=== PATIENT | female | born 1975 | race Caucasian/White ===

== ENCOUNTER 2017-02-09 10:12 | Outpatient (RCR) | payer MEDICAID ==
[~2017-02-09 10:12] MED LIST: ALPR-557 GT; AMLO10TA PO; ASPI-586 PO; CLIN-62 PO; CLOP75TA28 PO; CYCL10TA9 PO; DULO30CA; DULO60CA6 PO; FURO40TA4 PO; GABA-488 PO; GABA100C; GABA300S2 PO; GFN600TCR PO; HYDR-3720 PO; HYDR-757 PO; HYDR118S10 PO; HYDROCHLOROTHIAZIDE PO; KCL10CCR PO; LEVO75TA57 PO; LEVO75TA6 PO; LOSA1TAB15 PO; LOSARTAN PO; LVT.088T PO; MELO-198 PO; METO-272 PO; METO-333 PO; METO-352 PO; METO2.5T PO; NAPR-243; NIA500ERT; NTR.4SL; OMEP-10 PO; OMEP20CA12 PO; POTA-53 PO; ROPI2TAB4; ROPI4TAB3 PO; ROPI5TAB PO; RT-ALBUINH IH; SMV20T PO; TIZA4CAP6 PO
== END 2017-03-22 17:25 | disposition home or self-care (01) ==
PROVIDERS: ATTEND Surgery
DX: I89.0 Lymphedema, not elsewhere classified (principal); I30.8 Other forms of acute pericarditis; E66.01 Morbid (severe) obesity due to excess calories; I70.242 Atherosclerosis of native arteries of left leg with ulceration of calf

== ENCOUNTER 2017-02-17 08:44 | Outpatient (RCR) | payer MEDICAID ==
--- OUTSIDE RECORDS SUMMARY | 2017-01-09 13:32 | XMS REPORT | Continuity of Care Document ---
Author Author [facility] Organization [facility] Address Unknown Phone Unavailable Care Team Providers Care Manager Sustainability Name Role Phone PIPPA DIMAS CARLO PCP Insurance Providers Payer Name Policy Number Subscriber Name Relationship Self Pay Christina Morin 18 Self / Same As Patient Advance Directives Directive Response Recorded Date/Time Advance Directives No 08/09/14 1:05am Health Care Power of Tobacco Classer No 08/09/14 1:05am Organ Donor Yes 08/09/14 1:05am Resuscitation Status Full Code 08/09/14 1:05am Problems Medical Problems Problem Onset Date Status Cellulitis Unknown Active Medications Medication Dose Route Sig Days/Qty Instructions Order Date Discontinued Date Status Losartan/Hydrochlorothiazide 2 Tab PO DAILY 08/08/10 Active Omeprazole 20 Mg PO DAILY 08/08/10 Active Levothyroxine Sodium 1 Each PO DAILY 08/08/10 11/27/13 Discontinued Niacin 09/01/12 11/27/13 Discontinued Nitroglycerin 09/01/12 11/27/13 Discontinued Naproxen 09/01/12 11/27/13 Discontinued Ropinirole Hcl 09/01/12 11/27/13 Discontinued Simvastatin 09/01/12 Active Duloxetine HCl 09/01/12 11/27/13 Discontinued Gabapentin 09/01/12 11/27/13 Discontinued Levothyroxine Sodium (Levothroid) 1 Each PO DAILY 11/27/13 Active Ropinirole Hcl 5 Mg PO TWICE A DAY 11/27/13 Active Duloxetine HCl 60 Mg PO DAILY 11/27/13 Active Guaifenesin 600 Mg PO TWICE A DAY 11/27/13 08/09/14 Discontinued Meloxicam (Mobic) 1 Each PO DAILY 11/27/13 Active Omeprazole 20 Mg PO DAILY 30 Qty 11/27/13 08/09/14 Discontinued Amlodipine Besylate 10 Mg PO DAILY 11/27/13 08/09/14 Discontinued Furosemide (Lasix) 1 Each PO DAILY 11/27/13 Active Alprazolam 0.5 Mg GT TWICE A DAY PRN ANXIETY 11/27/13 08/09/14 Discontinued Potassium Chloride 10 Meq PO DAILY 11/27/13 Active Tizanidine Hcl 4 Mg PO DIRECTED 11/27/13 08/09/14 Discontinued Acetaminophen/Hydrocodone Bitart (Anza) 1 Each PO EVERY 12 HOURS PRN PAIN 11/27/13 Active Hydrocodone Bit/Acetaminophen 1-2 Each PO EVERY 4HRS 30 Qty 12/04/13 08/09/14 Discontinued Clindamycin HCl 2 Each PO EVERY 6 HOURS 80 Qty 08/09/14 Active Social History Social History Problem Response Recorded Date/Time Alcohol Use Denies Use 08/09/2014 1:05am Recreational Drug Use No 08/09/2014 1:05am Sexually Transmitted Disease No 08/09/2014 1:05am Smoking Status Never a Smoker 08/09/2014 1:05am Query Response Start Date Stop Date Smoking Status Never a Smoker Hospital Discharge Instructions No hospital discharge instructions. Plan of Care No plan of care. Functional Status No functional status results. Allergies, Adverse Reactions, Alerts Allergen Type Severity Reaction Status Last Updated sulfamethoxazole ([id number]) Allergy Unknown Active 04/23/06 Trimethoprim Allergy Unknown Active 04/23/06 Immunizations Name Given Type Date of Influenza Vaccine 08/20/12 Historical Vital Signs Acute Vital Signs Vital Response Date/Time Temperature (Fahrenheit) 98.6 degrees F (97.6 - 99.5) Temperature (Calculated Celsius) 37.81392 degrees C (36.4 - 37.5) Temperature Source Temporal Pulse Rate (adult) 109 bpm (60 - 90) Respiratory Rate 24 bpm (12 - 24) O2 Sat by Pulse Oximetry 96 % (88 - 100) Blood Pressure 132/86 mm Hg Pain Pain Intensity 10 Height (Feet) 5 feet Height (Inches) 2 inches Height (Calculated Centimeters) 157.090508 cm Weight (Pounds) 424 pounds Weight (Calculated Kilograms) 192.985774 kilograms Calculated BMI 77.54 Results Test Source Date Result Interp. Ref. Range Comments Activated Partial Thromboplast Time August 08, 2010 1:48am 30 SEC N 24-35 Alanine Aminotransferase (ALT/SGPT) April 14, 2008 8:40pm 27 U/L L 30-65 Has specimen been collected/obtained? Y Albumin April 14, 2008 8:40pm 3.1 G/DL L 3.4-5.0 Has specimen been collected/obtained? Y Alkaline Phosphatase April 14, 2008 8:40pm 87 U/L N 50-136 Has specimen been collected/obtained? Y Aspartate Amino Transf (AST/SGOT) April 14, 2008 8:40pm 11 U/L L 15-37 Has specimen been collected/obtained? Y B-Type Natriuretic Peptide August 09, 2010 6:25am < 5.0 PG/ML L 5.0- 100.0 BUN/Creatinine Ratio November 27, 2013 10:15am 22 - Band Neutrophils August 20, 2007 1:25am 6 % - Has specimen been collected/obtained? Y Basophils # (Auto) August 09, 2010 6:25am 0.0 10^3/uL N 0.0-0.1 Basophils (%) (Auto) August 09, 2010 6:25am 0 % N 0-10 Blood Urea Nitrogen November 27, 2013 10:15am 28 MG/DL H 7-18 Calcium Level November 27, 2013 10:15am 9.0 MG/DL N 8.5-10.1 Carbon Dioxide Level November 27, 2013 10:15am 34 MMOL/L H 21-32 Chloride Level November 27, 2013 10:15am 102 MMOL/L N 101-110 Cholesterol Level April 23, 2006 6:20am 168 MG/DL N -200 Creatinine November 27, 2013 10:15am 1.3 MG/DL N 0.6-1.3 D-Dimer August 08, 2010 1:48am 0.25 UG/ML N 0.00-0.49 Eosinophils # (Auto) August 09, 2010 6:25am 0.3 10^3/uL N 0.0-0.3 Eosinophils (%) (Auto) August 09, 2010 6:25am 3 % N 0-10 Glucose Level November 27, 2013 10:15am 107 MG/DL H 74-106 HDL Cholesterol April 23, 2006 6:20am 31 MG/ML L 35-60 Hematocrit August 09, 2010 6:25am 36 % N 35-52 Hemoglobin August 09, 2010 6:25am 11.8 G/DL N 11.5-16.0 LDL Cholesterol April 23, 2006 6:20am 116 MG/DL N 0-129 Lymphocytes # (Auto) August 09, 2010 6:25am 1.5 X 10^3 N 1.0-4.0 Lymphocytes % (Manual) August 20, 2007 1:25am 3 % - Has specimen been collected/obtained? Y Lymphocytes (%) (Auto) August 09, 2010 6:25am 15 % N 12-44 Magnesium Level August 09, 2010 6:25am 1.8 MG/DL N 1.8-2.4 Mean Corpuscular Hemoglobin August 09, 2010 6:25am 31 PG N 25-34 Mean Corpuscular Hemoglobin Concent August 09, 2010 6:25am 33 G/DL N 32-36 Mean Corpuscular Volume August 09, 2010 6:25am 92 FL N 80-99 Mean Platelet Volume August 09, 2010 6:25am 9.3 FL N 7.4-10.4 Monocytes # (Auto) August 09, 2010 6:25am 0.6 X 10^3 N 0.0-1.0 Monocytes % (Manual) August 20, 2007 1:25am 4 % - Has specimen been collected/obtained? Y Monocytes (%) (Auto) August 09, 2010 6:25am 6 % N 0-12 Myoglobin April 23, 2006 2:45am 26 UG/L N 10-92 Has specimen been collected/obtained? YComments to Cops: ED 5 Neutrophils # (Auto) August 09, 2010 6:25am 7.3 X 10^3 N 1.8-7.8 Neutrophils % (Manual) August 20, 2007 1:25am 87 % - Has specimen been collected/obtained? Y Neutrophils (%) (Auto) August 09, 2010 6:25am 75 % N 42-75 Platelet Count August 09, 2010 6:25am 261 10^3/uL N 130-400 Potassium Level November 27, 2013 10:15am 3.7 MMOL/L N 3.6-5.0 Prothromb Time International Ratio August 08, 2010 1:48am 1.0 N 0.8- 1.4 INTERPRETIVE DATASUGGESTED THERAPEUTIC RANGE FOR INR'S : VENOUS THROMBOSIS, PULMONARY EMBOLISM, OR PREVENTION OF SYSTEMIC EMBOLISM (EG. IN ATRIAL FIBRILLATION): 2.0 - 3.0 MECHANICAL PROSTHETIC HEART VALVES: 2.5 - 3.5* *NOTE: INR'S UP TO 4.5 MAY BE NECESSARY IN SELECTED GROUPS OF HIGH RISK PATIENTS. [employer]ST PHYSICIANS CONSENSUS CONFERENCE ON ANTITHROMBOTIC THERAPY (2000). Prothrombin Time August 08, 2010 1:48am 13.3 SEC N 12.2-14.7 RBC Morphology Bizarre Forms August 20, 2007 1:25am Normal - Has specimen been collected/obtained? Y Red Blood Count August 09, 2010 6:25am 3.86 10^6/uL L 4.35-5.85 Red Cell Distribution Width August 09, 2010 6:25am 12.8 % N 10.0- 14.5 Sodium Level November 27, 2013 10:15am 142 MMOL/L N 135-145 Thyroid Stimulating Hormone (TSH) March 23, 2010 8:07am 1.95 UIU/ML N 0.34 -5.60 Total Bilirubin April 14, 2008 8:40pm 0.2 MG/DL N 0.0-1.0 Has specimen been collected/obtained? Y Total Protein April 14, 2008 8:40pm 7.3 G/DL N 6.4-8.2 Has specimen been collected/obtained? Y Triglycerides Level April 23, 2006 6:20am 106 MG/DL N 30.0-150.0 Troponin I August 08, 2010 1:48am < 0.10 MG/ML 0.00-0.10 Urine Bacteria April 14, 2008 8:45pm Few H - Has specimen been collected/ obtained? YSpecimen Description CLEAN CATCH Urine Bilirubin April 14, 2008 8:45pm Negative - Has specimen been collected/obtained? YSpecimen Description CLEAN CATCH Urine Casts April 14, 2008 8:45pm None - Has specimen been collected/ obtained? YSpecimen Description CLEAN CATCH Urine Clarity April 14, 2008 8:45pm Clear - Has specimen been collected /obtained? YSpecimen Description CLEAN CATCH Urine Color April 14, 2008 8:45pm Yellow - Has specimen been collected/ obtained? YSpecimen Description CLEAN CATCH Urine Crystals April 14, 2008 8:45pm None - Has specimen been collected /obtained? YSpecimen Description CLEAN CATCH Urine Culture Indicated April 14, 2008 8:45pm Yes - Has specimen been collected/obtained? YSpecimen Description CLEAN CATCH Urine Glucose (UA) April 14, 2008 8:45pm Negative - Has specimen been collected/obtained? YSpecimen Description CLEAN CATCH Urine Ketones April 14, 2008 8:45pm Negative - Has specimen been collected/obtained? YSpecimen Description CLEAN CATCH Urine Leukocyte Esterase April 14, 2008 8:45pm 1+ H - Has specimen been collected/obtained? YSpecimen Description CLEAN CATCH Urine Mucus April 14, 2008 8:45pm Negative - --- 04/14/082140 ---UR MUCOUS previously reported as: SMALL * Urine Nitrate April 14, 2008 8:45pm Negative - Has specimen been collected/obtained? YSpecimen Description CLEAN CATCH Urine Test December 04, 2013 7:35am NEGATIVE - Comments to Cops: ds Urine Protein April 14, 2008 8:45pm Negative - Has specimen been collected/obtained? YSpecimen Description CLEAN CATCH Urine RBC April 14, 2008 8:45pm Rare /HPF - --- 04/14/082140 ---UR RBC (MICRO) previously reported as: NONE /HPF Urine Specific [place] April 14, 2008 8:45pm 1.015 L - Has specimen been collected/obtained? YSpecimen Description CLEAN CATCH Urine Squamous Epithelial Cells April 14, 2008 8:45pm >50 H - --- 2139 ---UR SQUAM EPI previously reported as: 2-5 Urine Urobilinogen April 14, 2008 8:45pm Normal MG/DL - Has specimen been collected/obtained? YSpecimen Description CLEAN CATCH Urine WBC April 14, 2008 8:45pm 2-5 /HPF - --- 04/14/082139 ---UR WBC (MICRO) previously reported as: 5-10 * /HPF Urine pH April 14, 2008 8:45pm 6.0 - Has specimen been collected/ obtained? YSpecimen Description CLEAN CATCH VLDL Cholesterol April 23, 2006 6:20am 21 MG/DL N 5-40 White Blood Count August 09, 2010 6:25am 9.8 10^3/uL N 4.3-11.0 Pathology Consult Specimen April 23, 2006 2:45am See report - Has specimen been collected/obtained? YComments to Cops: ED 5 Lab Scanned Report August 08, 2010 4:00am Referred Lab Report [id number] - Estimat Glomerular Filtration Rate November 27, 2013 10:15am 46 - GFR INTERPRETIVE DATA UNITS FOR ESTIMATED GFR (eGFR): mL/min/1.73 M2 REFERENCE RANGE FOR ESTIMATED GFR (eGFR) eGFR NORMAL eGFR >60 MODERATELY DECREASED eGFR 30-59 SEVERLY DECREASED eGFR 15-29 KIDNEY FAILURE <15 (OR DIALYSIS) Creatine Kinase August 08, 2010 1:48am 30 mg/dl N 21-140 Cardiac Panel Pathologist Review August 08, 2010 1:48am SEE CARDIAC PATH REV - Urine RBC (Auto) April 14, 2008 8:45pm 1+ H - Has specimen been collected /obtained? YSpecimen Description CLEAN CATCH Blood Culture Peripheral-Lt Ac August 20, 2007 1:25am No growth MRSA Screen Nasal November 27, 2013 10:15am MRSA not isolated Urine Culture Urine-Clean Catch April 14, 2008 8:45pm Procedures No known history of procedures. Encounters Encounter Location Date/Time Departed Emergency Room [facility] 08/09/14 12:51am Recent Diagnosis
== END 2017-02-17 14:56 | disposition home or self-care (01) ==
LOC: WOUNDCARE 08:44
PROVIDERS: ATTEND Surgery
DX: I89.0 Lymphedema, not elsewhere classified (principal); L30.8 Other specified dermatitis; E66.01 Morbid (severe) obesity due to excess calories; I70.242 Atherosclerosis of native arteries of left leg with ulceration of calf
CPT/HCPCS: 99212; 99213

== ENCOUNTER → 2017-07-25 | Outpatient (CLI) | payer MEDICAID ==
[~2017-07-25] MED LIST changes: +DULO60CA58 PO; +LOSA1TAB23 PO; -METO-272 PO; +METO-370 PO; +METO50TA2 PO; +MUPI22OI2 TP; +NAPR220C11 PO; +SACU1TAB PO; +SIMV20TA3 PO
--- NOTE | 2017-07-25 15:47 | Diagnostic Imaging Report ---
EXAMINATION: CHEST (PA AND LATERAL) CLINICAL INDICATION: 41-year-old female, asthma, cough. COMPARISON: May 13, 2017. FINDINGS: Heart size and mediastinal contours are unremarkable. There is no identified pneumothorax. There is no pleural effusion. There is no identified focal airspace consolidation. IMPRESSION: 1. No identified acute cardiopulmonary abnormality. Dictated by: Dictated on workstation # [id number]
== END ==
LOC: RAD 15:02
PROVIDERS: ATTEND Nurse Practitioner Family
DX: J45.909 Unspecified asthma, uncomplicated (principal)
CPT/HCPCS: 71020

== ENCOUNTER 2017-08-10 05:32 | Outpatient (CLI) | payer MEDICAID ==
[~2017-08-10] VITALS: Ht 157.5 cm; Wt 191.9 kg
[~2017-08-10 05:32] MED LIST changes: -DULO60CA58 PO; -LOSA1TAB23 PO; +METO-272 PO; -METO-370 PO; -METO50TA2 PO; -NAPR220C11 PO; -SIMV20TA3 PO
== END 2017-08-10 14:37 ==
LOC: PREOP 05:32
PROVIDERS: ATTEND Surgery
DX: Z01.818 Encounter for other preprocedural examination; K21.9 Gastro-esophageal reflux disease without esophagitis; Z79.02 Long term (current) use of antithrombotics/antiplatelets

== ENCOUNTER 2017-09-06 05:35 | Outpatient (CLI) | payer MEDICAID ==
[~2017-09-06] VITALS: Ht 157.5 cm; Wt 191.9 kg
[2017-09-06] MEDS ORDERED: DULO60CA58 PO (09:31)
[2017-09-06] MEDS ORDERED: SACU1TAB PO (09:31)
[2017-09-06] MEDS ORDERED: CLOP75TA28 PO (09:31)
[2017-09-06] MEDS ORDERED: SIMV20TA3 PO (09:31)
[2017-09-06] MEDS ORDERED: OMEP20CA12 PO (09:31)
[2017-09-06] MEDS ORDERED: METO50TA2 PO (09:31)
[2017-09-06] MEDS ORDERED: LOSA1TAB70 PO (09:31)
== END 2017-09-06 09:38 ==
LOC: PREOP 05:35
PROVIDERS: ATTEND Surgery
DX: Z01.818 Encounter for other preprocedural examination (principal); K21.9 Gastro-esophageal reflux disease without esophagitis

== ENCOUNTER 2017-09-11 08:54 | Day surgery (SDC) | payer MEDICAID ==
[~2017-09-11] VITALS: Ht 157.5 cm; Wt 191.9 kg
[~2017-09-11 08:54] MED LIST changes: +DULO60CA58 PO; +LOSA1TAB70 PO; +METO50TA2 PO; +SIMV20TA3 PO
--- OUTSIDE RECORDS SUMMARY | 2017-09-11 08:57 | XMS REPORT ---
Author Author PIPPA DIMAS [facility] Address [address] [place] [address] Care Team Providers Care Secondary Set Up Man Name Role Phone PIPPA DIMAS Unavailable PROBLEMS Type Condition ICD9-CM Code [id number] Code Onset Dates Condition Status SNOMED Code Problem Dependence on nocturnal oxygen therapy Z99.81 Active 62442164071130 Problem Restless legs syndrome G25.81 Active 142400378 Problem Left knee pain M25.562 Active 08617567 Problem Lumbar pain M54.5 Active 434400853 Problem Essential hypertension I10 Active 17045939 Problem Abdominal wall mass R19.00 Active 783027629 Problem Acquired hypothyroidism E03.9 Active 442052540 Problem Alteration in mobility due to weakness R53.1 Active 608245498 Problem Chronic stasis dermatitis I83.10 Active 76022705 Problem Lower abdominal pain R10.30 Active 15488198 Problem Edema of both legs R60.0 Active 006207747 Problem Stasis dermatitis without varicosities I87.2 Active 58562072 Problem Chronic pain syndrome G89.4 Active 809671961 Problem Gastroesophageal reflux disease without esophagitis K21.9 Active 694413688 Problem Lymphedema I89.0 Active 624476325 Problem Morbid obesity due to excess calories E66.01 Active 217010800 Problem Renal insufficiency N28.9 Active 194861378 Problem 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 Active 26656752 Problem 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 Active 02353951 Problem Urge incontinence of urine N39.41 Active 93817051 Problem Dependence on supplemental oxygen Z99.81 Active 747489292611 Problem Pain in right knee M25.561 Active 07159860 Problem Nocturnal hypoxia G47.34 Active 895790102 Problem Cellulitis L03.90 Active 712811667 Problem Pain in left knee M25.562 Active 757978634818987 Problem Other chronic pain 338.29 Active 67022034 Problem Hypoxia R09.02 Active 934003113 Problem Cellulitis of left lower extremity L03.116 Active 988888344 Problem Mixed hyperlipidemia E78.2 Active 581727276 ALLERGIES No Information SOCIAL HISTORY Never Assessed PLAN OF CARE VITAL SIGNS MEDICATIONS Medication Instructions Dosage Frequency Start Date End Date Duration Status Hydrocodone-Acetaminophen 5-325 MG Orally 3 times a day prn must last 28 days - must have appt for further refills 1 tablet as needed Sep, 28 days Active RESULTS No Results PROCEDURES No Known procedures IMMUNIZATIONS No Known Immunizations MEDICAL (GENERAL) HISTORY Type Description Date Medical History Hypothyroidism Medical History hyperlipidemia Medical History obesity Medical History chronic pain Medical History mood disorder Medical History chronic renal insufficiency Medical History restless leg syndrome Medical History anxiety Medical History venous insufficiency Medical History hypertension Medical History edema Medical History oxygen dependent at hs (did not tolerate CPAP) Medical History sleep apnea/restrictive resp disease Medical History Obstructive sleep apnea (adult) (pediatric) Medical History Obstructive sleep apnea (adult) (pediatric) Medical History Achilles bursitis or tendinitis Medical History Unspecified disorder of kidney and ureter Medical History Other and unspecified hyperlipidemia Medical History Other and unspecified hyperlipidemia Medical History Unspecified episodic mood disorder Medical History Other abnormal glucose Medical History 08/16/16 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
--- OUTSIDE RECORDS SUMMARY | 2017-09-11 08:58 | XMS REPORT ---
Author Author PIPPA DIMAS [facility] Address [address] [place] [address] Care Team Providers Care Coal Unloader Name Role Phone PIPPA DIMAS Unavailable PROBLEMS Type Condition ICD9-CM Code [id number] Code Onset Dates Condition Status SNOMED Code Problem Dependence on nocturnal oxygen therapy Z99.81 Active 95044256834696 Problem Restless legs syndrome G25.81 Active 800847463 Problem Left knee pain M25.562 Active 55245684 Problem Lumbar pain M54.5 Active 514468467 Problem Essential hypertension I10 Active 65093470 Problem Abdominal wall mass R19.00 Active 916717895 Problem Acquired hypothyroidism E03.9 Active 876198161 Problem Alteration in mobility due to weakness R53.1 Active 139420744 Problem Chronic stasis dermatitis I83.10 Active 86181347 Problem Lower abdominal pain R10.30 Active 50546892 Problem Edema of both legs R60.0 Active 769330293 Problem Stasis dermatitis without varicosities I87.2 Active 23676559 Problem Chronic pain syndrome G89.4 Active 426055716 Problem Gastroesophageal reflux disease without esophagitis K21.9 Active 042695415 Problem Lymphedema I89.0 Active 977412992 Problem Morbid obesity due to excess calories E66.01 Active 373327730 Problem Renal insufficiency N28.9 Active 105624889 Problem 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 Active 24658464 Problem 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 Active 09510541 Problem Urge incontinence of urine N39.41 Active 59867164 Problem Dependence on supplemental oxygen Z99.81 Active 034298034821 Problem Pain in right knee M25.561 Active 69802135 Problem Nocturnal hypoxia G47.34 Active 124935565 Problem Cellulitis L03.90 Active 363628447 Problem Pain in left knee M25.562 Active 076463077726196 Problem Other chronic pain 338.29 Active 67482962 Problem Hypoxia R09.02 Active 919665073 Problem Cellulitis of left lower extremity L03.116 Active 211856246 Problem Mixed hyperlipidemia E78.2 Active 564598023 ALLERGIES Unknown Allergies SOCIAL HISTORY No smoking Hx information available PLAN OF CARE VITAL SIGNS MEDICATIONS Medication Instructions Dosage Frequency Start Date End Date Duration Status Ropinirole HCl 4 MG Orally Once a day 1 tablet 1 to 3 hours before bedtime 24h 30 days Active RESULTS No Results PROCEDURES No Known procedures IMMUNIZATIONS No Known Immunizations
--- OUTSIDE RECORDS SUMMARY | 2017-09-11 08:58 | XMS REPORT ---
Author Author PIPPA DIMAS [facility] Address [address] [place] [address] Care Team Providers Care Oven Baker Name Role Phone PIPPA DIMAS Unavailable PROBLEMS Type Condition ICD9-CM Code [id number] Code Onset Dates Condition Status SNOMED Code Problem Dependence on nocturnal oxygen therapy Z99.81 Active 57002598587795 Problem Essential hypertension I10 Active 90991849 Problem Acquired hypothyroidism E03.9 Active 581619346 Problem Restless legs syndrome G25.81 Active 266925588 Problem Lumbar pain M54.5 Active 191862704 Problem Alteration in mobility due to weakness R53.1 Active 358119862 Problem Left knee pain M25.562 Active 49082451 Problem Lower abdominal pain R10.30 Active 17460387 Problem Chronic stasis dermatitis I83.10 Active 87699555 Problem Abdominal wall mass R19.00 Active 701937182 Problem Edema of both legs R60.0 Active 313554189 Problem Stasis dermatitis without varicosities I87.2 Active 70282727 Problem Chronic pain syndrome G89.4 Active 206222354 Problem Gastroesophageal reflux disease without esophagitis K21.9 Active 804351392 Problem Lymphedema I89.0 Active 957773304 Problem Morbid obesity due to excess calories E66.01 Active 990937219 Problem Renal insufficiency N28.9 Active 097169962 Problem 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 Active 50891673 Problem 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 Active 66685915 Problem Urge incontinence of urine N39.41 Active 25546935 Problem Dependence on supplemental oxygen Z99.81 Active 809823018282 Problem Pain in right knee M25.561 Active 94965614 Problem Nocturnal hypoxia G47.34 Active 576965625 Problem Cellulitis L03.90 Active 971541620 Problem Pain in left knee M25.562 Active 335125267405035 Problem Mixed hyperlipidemia E78.2 Active 803811945 Problem Hypoxia R09.02 Active 582966975 Problem Cellulitis of left lower extremity L03.116 Active 449316886 Problem Other chronic pain 338.29 Active 59187363 ALLERGIES Unknown Allergies SOCIAL HISTORY No smoking Hx information available PLAN OF CARE VITAL SIGNS MEDICATIONS Medication Instructions Dosage Frequency Start Date End Date Duration Status Hydrocodone-Acetaminophen 5-325 MG Orally 3 times a day prn must last 28 days - must have appt for further refills 1 tablet as needed Sep, Active RESULTS No Results PROCEDURES No Known procedures IMMUNIZATIONS No Known Immunizations
--- OUTSIDE RECORDS SUMMARY | 2017-09-11 08:58 | XMS REPORT ---
Author Author PIPPA DIMAS [facility] Address [address] [place] [address] Care Team Providers Care Oleomargarine Maker Name Role Phone PIPPA DIMAS Unavailable PROBLEMS Type Condition ICD9-CM Code [id number] Code Onset Dates Condition Status SNOMED Code Problem Dependence on nocturnal oxygen therapy Z99.81 Active 81332538728989 Problem Restless legs syndrome G25.81 Active 261202533 Problem Left knee pain M25.562 Active 81439585 Problem Lumbar pain M54.5 Active 491831938 Problem Essential hypertension I10 Active 10840359 Problem Abdominal wall mass R19.00 Active 386298615 Problem Acquired hypothyroidism E03.9 Active 810726680 Problem Alteration in mobility due to weakness R53.1 Active 771687325 Problem Chronic stasis dermatitis I83.10 Active 91559741 Problem Lower abdominal pain R10.30 Active 06858450 Problem Edema of both legs R60.0 Active 305384356 Problem Stasis dermatitis without varicosities I87.2 Active 28456104 Problem Chronic pain syndrome G89.4 Active 695340699 Problem Gastroesophageal reflux disease without esophagitis K21.9 Active 697168634 Problem Lymphedema I89.0 Active 650211077 Problem Morbid obesity due to excess calories E66.01 Active 701106146 Problem Renal insufficiency N28.9 Active 964251659 Problem 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 Active 62008509 Problem 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 Active 39470277 Problem Urge incontinence of urine N39.41 Active 76536966 Problem Dependence on supplemental oxygen Z99.81 Active 594622538963 Problem Pain in right knee M25.561 Active 04178155 Problem Nocturnal hypoxia G47.34 Active 286958991 Problem Cellulitis L03.90 Active 801019181 Problem Pain in left knee M25.562 Active 094037558427015 Problem Other chronic pain 338.29 Active 63853033 Problem Hypoxia R09.02 Active 162349870 Problem Cellulitis of left lower extremity L03.116 Active 847076496 Problem Mixed hyperlipidemia E78.2 Active 361542296 ALLERGIES Unknown Allergies SOCIAL HISTORY No smoking Hx information available PLAN OF CARE VITAL SIGNS MEDICATIONS Unknown Medications RESULTS No Results PROCEDURES No Known procedures IMMUNIZATIONS No Known Immunizations
--- OUTSIDE RECORDS SUMMARY | 2017-09-11 09:00 | XMS REPORT ---
Author Author PIPPA DIMAS [facility] Address [address] [place] [address] Care Team Providers Care Engraver Name Role Phone PIPPA DIMAS Unavailable PROBLEMS Type Condition ICD9-CM Code [id number] Code Onset Dates Condition Status SNOMED Code Problem Dependence on nocturnal oxygen therapy Z99.81 Active 36583856857499 Problem Restless legs syndrome G25.81 Active 022004933 Problem Left knee pain M25.562 Active 48738683 Problem Lumbar pain M54.5 Active 912176171 Problem Essential hypertension I10 Active 70518767 Problem Abdominal wall mass R19.00 Active 123534251 Problem Acquired hypothyroidism E03.9 Active 270360059 Problem Alteration in mobility due to weakness R53.1 Active 653258144 Problem Chronic stasis dermatitis I83.10 Active 31334007 Problem Lower abdominal pain R10.30 Active 12276878 Problem Edema of both legs R60.0 Active 429185655 Problem Stasis dermatitis without varicosities I87.2 Active 13034711 Problem Chronic pain syndrome G89.4 Active 057472942 Problem Gastroesophageal reflux disease without esophagitis K21.9 Active 572820691 Problem Lymphedema I89.0 Active 803499575 Problem Morbid obesity due to excess calories E66.01 Active 363183126 Problem Renal insufficiency N28.9 Active 006290656 Problem 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 Active 79452735 Problem 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 Active 54795346 Problem Urge incontinence of urine N39.41 Active 49371357 Problem Dependence on supplemental oxygen Z99.81 Active 762546515269 Problem Pain in right knee M25.561 Active 16630542 Problem Nocturnal hypoxia G47.34 Active 190016071 Problem Cellulitis L03.90 Active 837913940 Problem Pain in left knee M25.562 Active 014528229780372 Problem Other chronic pain 338.29 Active 22835928 Problem Hypoxia R09.02 Active 102842025 Problem Cellulitis of left lower extremity L03.116 Active 725235593 Problem Mixed hyperlipidemia E78.2 Active 629577480 ALLERGIES Substance Reaction Event Type Date Status Arnaldo DS Unknown Drug Allergy Dec, Active SOCIAL HISTORY Never Assessed PLAN OF CARE Activity Details Follow Up 4 Weeks Reason:pain VITAL SIGNS Height 62 in 2016-12-29 Weight 441.0 lbs 2016-12-29 Temperature 98.0 degrees Fahrenheit 2016-12-29 Heart Rate 105 bpm 2016-12-29 Respiratory Rate 24 2016-12-29 BMI 80.65 kg/m2 2016-12-29 Blood pressure systolic 148 mmHg 2016-12-29 Blood pressure diastolic 95 mmHg 2016-12-29 MEDICATIONS Medication Instructions Dosage Frequency Start Date End Date Duration Status Triamcinolone Acetonide 0.1 % Externally Twice a day 1 application to affected area 12h Feb, Active Neurontin 300 MG Orally Once a day at night 1 capsule 30 Active Ropinirole HCl 4 MG Orally Once a day 1 tablet 1 to 3 hours before bedtime 24h 30 days Active Cymbalta 60 MG TAKE ONE CAPSULE BY MOUTH DAILY 90 Active Cyclobenzaprine HCl 10 mg Orally Once a day 1 tablet as needed 24h Jan 28 days Active Omeprazole 20 mg take 1 capsule by Oral route before a meal 1 time per day Jan, Active Losartan Potassium-HCTZ 100-25 MG Orally Once a day 1 tablet 24h 30 days Active Metoprolol Tartrate 50 mg Orally Twice a day 1 tablet with food 12h Jul 30 days Active Hydrocodone-Acetaminophen 5-325 MG Orally 3 times a day prn must last 28 days - must have appt for further refills 1 tablet as needed Sep,Jan 28 days Active Oxygen 2L Active Albuterol Sulfate 90 mcg/actuation take 2 puffs by Inhalation route every 4 -6 hours as needed PRN cough or wheezing Jan, Active Levothyroxine Sodium 75 MCG Orally Once a day 1 tablet on an empty stomach in the morning 24h Jun, 30 day(s) Active Aspir-81 81 MG Orally Once a day 1 tablet 24h Active Simvastatin 20 MG TAKE ONE TABLET BY MOUTH ONCE DAILY IN THE EVENING 30 Active Metolazone 2.5 MG Orally Once a day 1 tablet 24h 30 Active Wheelchair 1 as directed March, Active Potassium Chloride ER 20 MEQ Orally Once a day 1 tablet with food 24h Active Plavix 75 MG Orally Once a day 1 tablet 24h Active RESULTS Name Result Date Reference Range AMERITOX 2016-12-29 PROCEDURES Procedure Date Ordered Result Body Site No Charge Dec 29, 2016 IMMUNIZATIONS No Known Immunizations MEDICAL (GENERAL) HISTORY [...]
--- OUTSIDE RECORDS SUMMARY | 2017-09-11 09:00 | XMS REPORT ---
Author Author PIPPA DIMAS [facility] Address [address] [place] [address] Care Team Providers Care Medical Pathology Teacher Name Role Phone PIPPA DIMAS Unavailable PROBLEMS Type Condition ICD9-CM Code [id number] Code Onset Dates Condition Status SNOMED Code Problem Dependence on nocturnal oxygen therapy Z99.81 Active 98275031189311 Problem Restless legs syndrome G25.81 Active 983756367 Problem Left knee pain M25.562 Active 70472459 Problem Lumbar pain M54.5 Active 937468255 Problem Essential hypertension I10 Active 21897613 Problem Abdominal wall mass R19.00 Active 599425199 Problem Acquired hypothyroidism E03.9 Active 287422517 Problem Alteration in mobility due to weakness R53.1 Active 805440853 Problem Chronic stasis dermatitis I83.10 Active 87925383 Problem Lower abdominal pain R10.30 Active 09540948 Problem Edema of both legs R60.0 Active 383088810 Problem Stasis dermatitis without varicosities I87.2 Active 95684667 Problem Chronic pain syndrome G89.4 Active 269337609 Problem Gastroesophageal reflux disease without esophagitis K21.9 Active 346785518 Problem Lymphedema I89.0 Active 594602069 Problem Morbid obesity due to excess calories E66.01 Active 965361417 Problem Renal insufficiency N28.9 Active 332988785 Problem 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 Active 39526816 Problem 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 Active 17623069 Problem Urge incontinence of urine N39.41 Active 61845386 Problem Dependence on supplemental oxygen Z99.81 Active 159643674240 Problem Pain in right knee M25.561 Active 64560293 Problem Nocturnal hypoxia G47.34 Active 397229150 Problem Cellulitis L03.90 Active 127915493 Problem Pain in left knee M25.562 Active 060509633946474 Problem Other chronic pain 338.29 Active 69356755 Problem Hypoxia R09.02 Active 666763071 Problem Cellulitis of left lower extremity L03.116 Active 503004696 Problem Mixed hyperlipidemia E78.2 Active 191506161 ALLERGIES No Information SOCIAL HISTORY Never Assessed PLAN OF CARE VITAL SIGNS MEDICATIONS Unknown [...]
--- OUTSIDE RECORDS SUMMARY | 2017-09-11 09:00 | XMS REPORT ---
Author Author PIPPA DIMAS [facility] Address [address] [place] [address] Care Team Providers Care Oyster Farmer Name Role Phone PIPPA DIMAS Unavailable PROBLEMS Type Condition ICD9-CM Code PFU77-RF Code Onset Dates Condition Status SNOMED Code Problem Dependence on nocturnal oxygen therapy Z99.81 Active 02848306567585 Problem Restless legs syndrome G25.81 Active 225382578 Problem Left knee pain M25.562 Active 03170797 Problem Lumbar pain M54.5 Active 818182625 Problem Essential hypertension I10 Active 64531692 Problem Abdominal wall mass R19.00 Active 190665953 Problem Acquired hypothyroidism E03.9 Active 924914633 Problem Alteration in mobility due to weakness R53.1 Active 431018876 Problem Chronic stasis dermatitis I83.10 Active 80347814 Problem Lower abdominal pain R10.30 Active 59056461 Problem Edema of both legs R60.0 Active 039396304 Problem Stasis dermatitis without varicosities I87.2 Active 11425395 Problem Chronic pain syndrome G89.4 Active 978778286 Problem Gastroesophageal reflux disease without esophagitis K21.9 Active 830748081 Problem Lymphedema I89.0 Active 196467882 Problem Morbid obesity due to excess calories E66.01 Active 245497927 Problem Renal insufficiency N28.9 Active 292132311 Problem 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 Active 38597429 Problem 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 Active 40134380 Problem Urge incontinence of urine N39.41 Active 71313826 Problem Dependence on supplemental oxygen Z99.81 Active 695007281420 Problem Pain in right knee M25.561 Active 82186515 Problem Nocturnal hypoxia G47.34 Active 370365826 Problem Cellulitis L03.90 Active 045684121 Problem Pain in left knee M25.562 Active 830449700949549 Problem Other chronic pain 338.29 Active 92139005 Problem Hypoxia R09.02 Active 819610242 Problem Cellulitis of left lower extremity L03.116 Active 030805330 Problem Mixed hyperlipidemia E78.2 Active 583621285 ALLERGIES Unknown Allergies SOCIAL HISTORY No smoking Hx information available PLAN OF CARE VITAL SIGNS MEDICATIONS Medication Instructions Dosage Frequency Start Date End Date Duration Status Cyclobenzaprine HCl 10 mg TAKE ONE TABLET BY MOUTH AT BEDTIME 14 days Active Hydrocodone-Acetaminophen 5-325 MG Orally 3 times a day prn must last 28 days - must have appt for further refills 1 tablet as needed Sep, 14 days Active Simvastatin 20 mg TAKE ONE TABLET BY MOUTH IN THE EVENING 14 days Active RESULTS No Results PROCEDURES No Known procedures IMMUNIZATIONS No Known Immunizations
--- OUTSIDE RECORDS SUMMARY | 2017-09-11 09:01 | XMS REPORT ---
Author Author PIPPA DIMAS [facility] Address [address] [place] [address] Care Team Providers Care Supervisor Rides Name Role Phone PIPPA DIMAS Unavailable PROBLEMS Type Condition ICD9-CM Code NNC03-UY Code Onset Dates Condition Status SNOMED Code Problem Dependence on nocturnal oxygen therapy Z99.81 Active 93492604555236 Problem Restless legs syndrome G25.81 Active 371430206 Problem Left knee pain M25.562 Active 73205286 Problem Lumbar pain M54.5 Active 239509921 Problem Essential hypertension I10 Active 80980053 Problem Abdominal wall mass R19.00 Active 219337063 Problem Acquired hypothyroidism E03.9 Active 644007134 Problem Alteration in mobility due to weakness R53.1 Active 172303029 Problem Chronic stasis dermatitis I83.10 Active 03813365 Problem Lower abdominal pain R10.30 Active 20514751 Problem Edema of both legs R60.0 Active 289198676 Problem Stasis dermatitis without varicosities I87.2 Active 35122976 Problem Chronic pain syndrome G89.4 Active 450903857 Problem Gastroesophageal reflux disease without esophagitis K21.9 Active 512026808 Problem Lymphedema I89.0 Active 411506252 Problem Morbid obesity due to excess calories E66.01 Active 442031262 Problem Renal insufficiency N28.9 Active 916825973 Problem 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 Active 81718938 Problem 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 Active 35378838 Problem Urge incontinence of urine N39.41 Active 91768027 Problem Dependence on supplemental oxygen Z99.81 Active 883774998648 Problem Pain in right knee M25.561 Active 84108012 Problem Nocturnal hypoxia G47.34 Active 509255969 Problem Cellulitis L03.90 Active 331278771 Problem Pain in left knee M25.562 Active 290944808097686 Problem Other chronic pain 338.29 Active 36076853 Problem Hypoxia R09.02 Active 966845113 Problem Cellulitis of left lower extremity L03.116 Active 233845103 Problem Mixed hyperlipidemia E78.2 Active 071418846 ALLERGIES No Information SOCIAL HISTORY Never Assessed [...]
--- OUTSIDE RECORDS SUMMARY | 2017-09-11 09:01 | XMS REPORT ---
Author Author CHARLES LAWRENCE Organization [facility] Address [address] [place] [address] Care Team Providers Care Conveyor Technician Name Role Phone CHARLES LAWRENCE Unavailable PROBLEMS Type Condition ICD9-CM Code FTA58-BF Code Onset Dates Condition Status SNOMED Code Problem Dependence on nocturnal oxygen therapy Z99.81 Active 56154006583977 Problem Restless legs syndrome G25.81 Active 254341682 Problem Left knee pain M25.562 Active 49245286 Problem Lumbar pain M54.5 Active 019814564 Problem Essential hypertension I10 Active 64607500 Problem Abdominal wall mass R19.00 Active 609865632 Problem Acquired hypothyroidism E03.9 Active 856553581 Problem Alteration in mobility due to weakness R53.1 Active 393979239 Problem Chronic stasis dermatitis I83.10 Active 60026247 Problem Lower abdominal pain R10.30 Active 13978334 Problem Edema of both legs R60.0 Active 912671942 Problem Stasis dermatitis without varicosities I87.2 Active 60251255 Problem Chronic pain syndrome G89.4 Active 231862418 Problem Gastroesophageal reflux disease without esophagitis K21.9 Active 637671285 Problem Lymphedema I89.0 Active 981488667 Problem Morbid obesity due to excess calories E66.01 Active 077587704 Problem Renal insufficiency N28.9 Active 299528348 Problem 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 Active 83276598 Problem 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 Active 38989338 Problem Urge incontinence of urine N39.41 Active 01861173 Problem Dependence on supplemental oxygen Z99.81 Active 820284933388 Problem Pain in right knee M25.561 Active 14266241 Problem Nocturnal hypoxia G47.34 Active 349966532 Problem Cellulitis L03.90 Active 093347773 Problem Pain in left knee M25.562 Active 416200498672655 Problem Other chronic pain 338.29 Active 95009330 Problem Hypoxia R09.02 Active 266898026 Problem Cellulitis of left lower extremity L03.116 Active 738770990 Problem Mixed hyperlipidemia E78.2 Active 067861308 ALLERGIES Substance Reaction Event Type Date Status Bactrim DS Unknown Drug Allergy Nov, Active SOCIAL HISTORY No smoking Hx information available PLAN OF CARE Activity Details Follow Up prn Reason: VITAL SIGNS Height 62 in 2016-12-01 Weight 412.6 lbs 2016-12-01 Temperature 98.2 degrees Fahrenheit 2016-12-01 Heart Rate 80 bpm 2016-12-01 Respiratory Rate 24 2016-12-01 BMI 75.46 kg/m2 2016-12-01 Blood pressure systolic 136 mmHg 2016-12-01 Blood pressure diastolic 80 mmHg 2016-12-01 MEDICATIONS Medication Instructions Dosage Frequency Start Date End Date Duration Status Cyclobenzaprine HCl 10 MG TAKE ONE TABLET BY MOUTH AT BEDTIME 30 Active Oxygen 2L Active Cephalexin 500 MG Orally Twice a day 1 capsule 12h Nov, Nov, 10 day(s) Active Metolazone 2.5 MG Orally Once a day 1 tablet 24h 30 Active Cymbalta 60 MG TAKE ONE CAPSULE BY MOUTH DAILY 90 Active Potassium Chloride ER 20 MEQ Orally Once a day 1 tablet with food 24h Active Wheelchair 1 as directed March, Active Neurontin 300 MG Orally Once a day at night 1 capsule 30 Active Omeprazole 20 mg take 1 capsule by Oral route before a meal 1 time per day Jan, Active Simvastatin 20 MG TAKE ONE TABLET BY MOUTH IN THE EVENING 30 Active Hydrocodone-Acetaminophen 5-325 MG Orally 3 times a day prn must last 28 days - must have appt for further refills 1 tablet as needed Sep, Active Metoprolol Tartrate 25 MG Orally Twice a day 1 tablet with food 12h Jul 30 day(s) Active Albuterol Sulfate 90 mcg/actuation take 2 puffs by Inhalation route every 4 -6 hours as needed PRN cough or wheezing Jan, Active Ropinirole HCl 4 MG Orally Once a day 1 tablet 1 to 3 hours before bedtime 24h 9 days Active Losartan Potassium-HCTZ 100-25 MG TAKE ONE TABLET BY MOUTH DAILY Active Triamcinolone Acetonide 0.1 % Externally Twice a day 1 application to affected area 12h Feb, Active Levothyroxine Sodium 75 MCG Orally Once a day 1 tablet on an empty stomach in the morning 24h 19 Aug, 2016 30 day(s) Active RESULTS No Results PROCEDURES Procedure Date Ordered Related Diagnosis Body Site Office Visit, Est Pt., Level 3 Dec 01, 2016 IMMUNIZATIONS No Known Immunizations
--- OUTSIDE RECORDS SUMMARY | 2017-09-11 09:01 | XMS REPORT ---
Author Author PIPPA DIMAS [facility] Address [address] [place] [address] Care Team Providers Care Community Services Officer Name Role Phone PIPPA DIMAS Unavailable PROBLEMS Type Condition ICD9-CM Code XGE47-YO Code Onset Dates Condition Status SNOMED Code Problem Dependence on nocturnal oxygen therapy Z99.81 Active 28641771038145 Problem Essential hypertension I10 Active 54294750 Problem Acquired hypothyroidism E03.9 Active 415295743 Problem Restless legs syndrome G25.81 Active 511964607 Problem Lumbar pain M54.5 Active 293578004 Problem Alteration in mobility due to weakness R53.1 Active 431687311 Problem Left knee pain M25.562 Active 30874311 Problem Lower abdominal pain R10.30 Active 89862007 Problem Chronic stasis dermatitis I83.10 Active 89681253 Problem Abdominal wall mass R19.00 Active 889486797 Problem Edema of both legs R60.0 Active 091726928 Problem Stasis dermatitis without varicosities I87.2 Active 63866042 Problem Chronic pain syndrome G89.4 Active 268132871 Problem Gastroesophageal reflux disease without esophagitis K21.9 Active 619320019 Problem Lymphedema I89.0 Active 482014601 Problem Morbid obesity due to excess calories E66.01 Active 004874067 Problem Renal insufficiency N28.9 Active 839248669 Problem 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 Active 80671737 Problem 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 Active 49588559 Problem Urge incontinence of urine N39.41 Active 63221634 Problem Dependence on supplemental oxygen Z99.81 Active 453040156105 Problem Pain in right knee M25.561 Active 03340644 Problem Nocturnal hypoxia G47.34 Active 957729794 Problem Cellulitis L03.90 Active 122730046 Problem Pain in left knee M25.562 Active 728496784723761 Problem Mixed hyperlipidemia E78.2 Active 304680899 Problem Hypoxia R09.02 Active 755169964 Problem Cellulitis of left lower extremity L03.116 Active 033706231 Problem Other chronic pain 338.29 Active 25998852 ALLERGIES Unknown Allergies SOCIAL HISTORY No smoking Hx information available PLAN OF CARE VITAL SIGNS MEDICATIONS Medication Instructions Dosage Frequency Start Date End Date Duration Status Ropinirole HCl 4 MG Orally Once a day 1 tablet 1 to 3 hours before bedtime 24h 10 days Active RESULTS No Results PROCEDURES No Known procedures IMMUNIZATIONS No Known Immunizations
--- OUTSIDE RECORDS SUMMARY | 2017-09-11 09:01 | XMS REPORT ---
Author Author PIPPA DIMAS [facility] Address [address] [place] [address] Care Team Providers Care Cream Dumper Name Role Phone PIPPA DIMAS Unavailable PROBLEMS Type Condition ICD9-CM Code FJR83-TD Code Onset Dates Condition Status SNOMED Code Problem Dependence on nocturnal oxygen therapy Z99.81 Active 62492618423965 Problem Restless legs syndrome G25.81 Active 263256749 Problem Left knee pain M25.562 Active 81797352 Problem Lumbar pain M54.5 Active 267245122 Problem Essential hypertension I10 Active 76811441 Problem Abdominal wall mass R19.00 Active 194591516 Problem Acquired hypothyroidism E03.9 Active 937467187 Problem Alteration in mobility due to weakness R53.1 Active 644034702 Problem Chronic stasis dermatitis I83.10 Active 02129084 Problem Lower abdominal pain R10.30 Active 72893138 Problem Edema of both legs R60.0 Active 116827095 Problem Stasis dermatitis without varicosities I87.2 Active 78506590 Problem Chronic pain syndrome G89.4 Active 810607657 Problem Gastroesophageal reflux disease without esophagitis K21.9 Active 650208211 Problem Lymphedema I89.0 Active 229318939 Problem Morbid obesity due to excess calories E66.01 Active 025738927 Problem Renal insufficiency N28.9 Active 225766734 Problem 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 Active 07335446 Problem 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 Active 33162316 Problem Urge incontinence of urine N39.41 Active 00126253 Problem Dependence on supplemental oxygen Z99.81 Active 577431844430 Problem Pain in right knee M25.561 Active 13032601 Problem Nocturnal hypoxia G47.34 Active 667131217 Problem Cellulitis L03.90 Active 991449334 Problem Pain in left knee M25.562 Active 277561802027577 Problem Other chronic pain 338.29 Active 15742029 Problem Hypoxia R09.02 Active 861033910 Problem Cellulitis of left lower extremity L03.116 Active 382311452 Problem Mixed hyperlipidemia E78.2 Active 583854042 ALLERGIES No Information SOCIAL HISTORY Never Assessed [...]
--- OUTSIDE RECORDS SUMMARY | 2017-09-11 09:02 | XMS REPORT ---
Author Author PIPPA DIMAS [facility] Address [address] [place] [address] Care Team Providers Care Fws Faculty Assistant Name Role Phone PIPPA DIMAS Unavailable PROBLEMS Type Condition ICD9-CM Code ULP06-OC Code Onset Dates Condition Status SNOMED Code Problem Dependence on nocturnal oxygen therapy Z99.81 Active 51097104937672 Problem Restless legs syndrome G25.81 Active 176591991 Problem Left knee pain M25.562 Active 69149529 Problem Lumbar pain M54.5 Active 070129203 Problem Essential hypertension I10 Active 32547624 Problem Abdominal wall mass R19.00 Active 690181009 Problem Acquired hypothyroidism E03.9 Active 079896172 Problem Alteration in mobility due to weakness R53.1 Active 683547271 Problem Chronic stasis dermatitis I83.10 Active 49000954 Problem Lower abdominal pain R10.30 Active 86503652 Problem Edema of both legs R60.0 Active 708088140 Problem Stasis dermatitis without varicosities I87.2 Active 82644701 Problem Chronic pain syndrome G89.4 Active 943021437 Problem Gastroesophageal reflux disease without esophagitis K21.9 Active 465764700 Problem Lymphedema I89.0 Active 879768605 Problem Morbid obesity due to excess calories E66.01 Active 219995651 Problem Renal insufficiency N28.9 Active 299155173 Problem 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 Active 40624515 Problem 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 Active 91069308 Problem Urge incontinence of urine N39.41 Active 72151391 Problem Dependence on supplemental oxygen Z99.81 Active 503473300340 Problem Pain in right knee M25.561 Active 25094157 Problem Nocturnal hypoxia G47.34 Active 416751764 Problem Cellulitis L03.90 Active 389374516 Problem Pain in left knee M25.562 Active 150415066823388 Problem Other chronic pain 338.29 Active 41163132 Problem Hypoxia R09.02 Active 524142805 Problem Cellulitis of left lower extremity L03.116 Active 212015072 Problem Mixed hyperlipidemia E78.2 Active 455419252 ALLERGIES Unknown Allergies SOCIAL HISTORY No smoking Hx information available PLAN OF CARE VITAL SIGNS MEDICATIONS Medication Instructions Dosage Frequency Start Date End Date Duration Status Ropinirole HCl 4 MG Orally Once a day 1 tablet 1 to 3 hours before bedtime 24h 9 days Active RESULTS No Results PROCEDURES No Known procedures IMMUNIZATIONS No Known Immunizations
--- OUTSIDE RECORDS SUMMARY | 2017-09-11 09:02 | XMS REPORT ---
Author Author PIPPA DIMAS [facility] Address [address] [place] [address] Care Team Providers Care Printed Forms Proofreader Name Role Phone PIPPA DIMAS Unavailable PROBLEMS Type Condition ICD9-CM Code [id number] Code Onset Dates Condition Status SNOMED Code Problem Dependence on nocturnal oxygen therapy Z99.81 Active 76396487363545 Problem Restless legs syndrome G25.81 Active 431351913 Problem Left knee pain M25.562 Active 36824478 Problem Lumbar pain M54.5 Active 084754127 Problem Essential hypertension I10 Active 44114623 Problem Abdominal wall mass R19.00 Active 550148709 Problem Acquired hypothyroidism E03.9 Active 609065352 Problem Alteration in mobility due to weakness R53.1 Active 047447639 Problem Chronic stasis dermatitis I83.10 Active 15624873 Problem Lower abdominal pain R10.30 Active 07532117 Problem Edema of both legs R60.0 Active 598366188 Problem Stasis dermatitis without varicosities I87.2 Active 18405636 Problem Chronic pain syndrome G89.4 Active 315743582 Problem Gastroesophageal reflux disease without esophagitis K21.9 Active 828753105 Problem Lymphedema I89.0 Active 729147665 Problem Morbid obesity due to excess calories E66.01 Active 879728384 Problem Renal insufficiency N28.9 Active 948614388 Problem 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 Active 42341626 Problem 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 Active 98703269 Problem Urge incontinence of urine N39.41 Active 35672523 Problem Dependence on supplemental oxygen Z99.81 Active 029609770911 Problem Pain in right knee M25.561 Active 57964991 Problem Nocturnal hypoxia G47.34 Active 136363084 Problem Cellulitis L03.90 Active 042585990 Problem Pain in left knee M25.562 Active 183478368353950 Problem Other chronic pain 338.29 Active 81785809 Problem Hypoxia R09.02 Active 240011993 Problem Cellulitis of left lower extremity L03.116 Active 985616187 Problem Mixed hyperlipidemia E78.2 Active 293221560 ALLERGIES No Information SOCIAL HISTORY Never Assessed [...]
--- OUTSIDE RECORDS SUMMARY | 2017-09-11 09:02 | XMS REPORT ---
Author Author PIPPA DIMAS [facility] Address [address] [place] [address] Care Team Providers Care Bonsai Tender Name Role Phone PIPPA DIMAS Unavailable PROBLEMS Type Condition ICD9-CM Code [id number] Code Onset Dates Condition Status SNOMED Code Problem Dependence on nocturnal oxygen therapy Z99.81 Active 74011900377931 Problem Restless legs syndrome G25.81 Active 895281731 Problem Left knee pain M25.562 Active 94717153 Problem Lumbar pain M54.5 Active 664772780 Problem Essential hypertension I10 Active 46596898 Problem Abdominal wall mass R19.00 Active 532044441 Problem Acquired hypothyroidism E03.9 Active 940677136 Problem Alteration in mobility due to weakness R53.1 Active 796344771 Problem Chronic stasis dermatitis I83.10 Active 94998478 Problem Lower abdominal pain R10.30 Active 36806359 Problem Edema of both legs R60.0 Active 113773064 Problem Stasis dermatitis without varicosities I87.2 Active 71093504 Problem Chronic pain syndrome G89.4 Active 873907522 Problem Gastroesophageal reflux disease without esophagitis K21.9 Active 460791541 Problem Lymphedema I89.0 Active 806165969 Problem Morbid obesity due to excess calories E66.01 Active 478793453 Problem Renal insufficiency N28.9 Active 055530875 Problem 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 Active 23951568 Problem 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 Active 04973490 Problem Urge incontinence of urine N39.41 Active 73197432 Problem Dependence on supplemental oxygen Z99.81 Active 174789800119 Problem Pain in right knee M25.561 Active 07395681 Problem Nocturnal hypoxia G47.34 Active 021210314 Problem Cellulitis L03.90 Active 214655250 Problem Pain in left knee M25.562 Active 155175166382810 Problem Other chronic pain 338.29 Active 82464820 Problem Hypoxia R09.02 Active 904388005 Problem Cellulitis of left lower extremity L03.116 Active 713675583 Problem Mixed hyperlipidemia E78.2 Active 349720801 ALLERGIES Unknown Allergies SOCIAL HISTORY No smoking [...] a day 1 tablet with food 12h 21 Jul 15 days Active RESULTS No Results PROCEDURES No Known procedures IMMUNIZATIONS No Known Immunizations
[2017-09-11 09:15] VITALS: BP 129/85
[2017-09-11] MEDS ORDERED: NS IV 500 ML 500 ML IV PRN (09:22)
[2017-09-11] MEDS ORDERED: HURRICAINE EXT TUBE (BENZOCAINE) XX PRN (09:30)
[2017-09-11] MEDS ORDERED: MIDAZOLAM 2 MG/2 ML (VERSED) VIAL IVP PRN (09:30)
[2017-09-11] MEDS ORDERED: NS IV 500 ML 500 ML ONE (09:46)
[2017-09-11] MEDS ORDERED: NAPR220C11 PO (09:51)
--- NOTE | 2017-09-11 11:38 | History & Physicial ---
History of Present Illness History of Present Illness Reason for visit/HPI to undergo an upper endoscopy prior to upcoming bariatric surgery Date of Admission Date Seen by Provider: Sep 11, 2017 Time Seen by Provider: 11:37 I consulted on this patient on 09/11/17 11:36 Attending Physician Radha Johnston MD Admitting Physician Mei Blanco DO Consult Allergies and Home Medications Allergies Coded Allergies: sulfamethoxazole (Unverified Allergy, Unknown, 04/23/06) trimethoprim (Unverified Allergy, Unknown, 04/23/06) Home Medications Albuterol Sulfate 6.7 Gm Hfa.aer.ad, 2 PUFF IH EVERY 4-6 HOURS PRN for SHORTNESS OF BREATH, (Reported) Aspirin 81 Mg Tablet.dr, 81 MG PO DAILY, (Reported) Clopidogrel Bisulfate 75 Mg Tablet, 75 MG PO DAILY, (Reported) Cyclobenzaprine HCl 10 Mg Tablet, 10 MG PO HS, (Reported) Duloxetine HCl 60 Mg Capsule.dr, 60 MG PO DAILY, (Reported) Gabapentin 300 Mg Capsule, 300 MG PO HS, (Reported) Levothyroxine Sodium 75 Mcg Tablet, 75 MCG PO DAILY, (Reported) Losartan/Hydrochlorothiazide 1 Each Tablet, 1 EACH PO DAILY, (Reported) Metolazone 2.5 Mg Tablet, 2.5 MG PO DAILY, (Reported) Metoprolol Tartrate 50 Mg Tablet, 50 MG PO BID, (Reported) Mupirocin 22 Gm Oint...g., 22 GM TP UD, (Reported) APPLY TO AFFECTED AREAS EVERY OTHER DAY Naproxen Sodium 220 Mg Capsule, 220 MG PO PRN, (Reported) Omeprazole 20 Mg Capsule.dr, 20 MG PO DAILY, (Reported) Potassium Chloride 20 Meq Tablet.er, 20 MEQ PO DAILY, (Reported) Ropinirole HCl 4 Mg Tablet, 4 MG PO DAILY@1900, (Reported) TAKES 1-3 HOURS PRIOR TO BEDTIME Sacubitril/Valsartan 1 Each Tablet, 1 EACH PO BID, (Reported) Simvastatin 20 Mg Tablet, 20 MG PO HS, (Reported) Past Kfooqkt-Lsulgk-Kpabji Hx Patient Social History Marrital Status: Employed/Student: unemployed Alcohol Use: Denies Use Recreational Drug Use: No Smoking Status: Never a Smoker Recent Foreign Travel: No Contact w/other who traveled: No Recent Hopitalizations: No Recent Infectious Disease Expo: No Immunizations Up To Date Pediatric: No Date of Influenza Vaccine: Aug 20, 2012 Seasonal Allergies Seasonal Allergies: No Surgeries Yes Cardiac, Section, Coronary Stent, Gallbladder, Orthopedic Respiratory Yes Currently Using BIPAP: No Cardiovascular Yes Chronic Edema/Swelling, Coronary Artery Disease, High Cholesterol, Hypertension Neurological No Reproductive System Hx Reproductive Disorders: No Sexually Transmitted Disease: No Female Reproductive Disorders: Denies Genitourinary Yes Renal Failure Gastrointestinal Yes Gastroesophageal Reflux Musculoskeletal Yes ("BAD KNEES", HERNIATED DISK IN L4-5) Chronic Back Pain Endocrine History of Endocrine Disorders: Yes (borderline diabetes, morbid obesity) Endocrine Disorders: Hypothyroidsim HEENT History of HEENT Disorders: No Cancer No Psychosocial History of Psychiatric Problem: Yes Behavioral Health Disorders: Sleep Difficulties, Anxiety Integumentary History of Skin or Integumenta: Yes (SORES ALL OVER) Blood Transfusions History of Blood Disorders: No Adverse Reaction to a Blood Tr: No Family Medical History Significant Family History: Heart Disease, Vascular Disease Family Hx: FH: COPD (chronic obstructive pulmonary disease) 19 MOTHER FH: congestive heart failure 19 MOTHER FH: renal failure 19 MOTHER Constitutional: malaise EENTM: no symptoms reported Respiratory: no symptoms reported Cardiovascular: no symptoms reported Gastrointestinal: no symptoms reported Genitourinary: no symptoms reported Musculoskeletal: joint pain Skin: no symptoms reported Psychiatric/Neurological: No Symptoms Reported Physical Exam Vital Signs Vital Sign - Last 12Hours 09/11/17 09:15 Temp 98.2 Pulse 72 Resp 24 B/P (MAP) 129/85 Pulse Ox 95 O2 Delivery Room Air Capillary Refill : General Appearance: No Apparent Distress HEENT: Normal ENT Inspection Neck: Normal Inspection Gastrointestinal: Non Tender, Soft Assessment/Plan Assessment and Plan lady with morbid obesity, awaiting bariatric surgery. For upper endoscopy with antral biopsy regarding H. pylori status. Problems: RADHA JOHNSTON MD Sep 11, 2017 11:38 am
--- NOTE | 2017-09-11 11:39 | Conscious Sedation/ASA ---
Conscious Sedation Pre-Proced Time Reviewed: 11:39 ASA Class: 3 Airway Mallampati Classification: ([place] appropriate class) I. II. III, IV Lungs Heart ASA score ASA 1: a normal healthy patient ASA 2: a patient with a mild systemic disease (mid diabetes, controlled hypertension, obesity ASA 3: a patient with a severe systemic disease that limits activity (angina , COPD, prior Myocardial infarction) ASA 4: a patient with an incapacitating disease that is a constant threat to life (CHF, renal failure) ASA 5: a moribund patient not expected to survive 24 hrs. (ruptured aneurysm) ASA 6: a declared brain patient whose organs are being harvested. For emergent operations, add the letter E after the classification Grade 2 Sedation Plan: Discussed options with patient/fam Note The patient is an appropriate candidate to undergo the planned procedure, sedation, and anesthesia. The patient immediately re-assessed prior to indication. RADHA JOHNSTON MD Sep 11, 2017 11:39 am
[2017-09-11] MEDS ORDERED: fentaNYL INJECTION 100 MCG/2 ML AMP ONE (11:55)
[2017-09-11] MEDS ORDERED: MIDAZOLAM 2 MG/2 ML (VERSED) VIAL ONE ×4 (11:55)
[2017-09-11] MEDS ORDERED: HURRICAINE EXT TUBE (BENZOCAINE) ONE (11:55)
[2017-09-11] MEDS: fentaNYL INJECTION 100 MCG/2 ML AMP IVP PRN ×2 (12:26→12:35)
--- NOTE | 2017-09-11 12:48 | Endo Procedure Record ---
Endo Procedure Report Date of Procedure Sep 11, 2017 Surgeon (s) RADHA JOHNSTON MD Post Procedure/Op Diagnosis grade 3 esophagitis with hiatal hernia Multiple antral and pyloric channel ulcers. Duodenal ulcers Procedure Performed EGD with biopsy of antrum and gastroesophageal junction Description of Procedure Anesthesia Type: Conscious Sedation Specimen(s) collected/removed antral mucosa. Mucosa of GE junction to look for Esparza's changes Description of the Procedure Indication for procedure: This lady is awaiting bariatric surgery to manage morbid obesity. Upper endoscopy was recommended as part of the preoperative evaluation. Informed consent was obtained after reviewing the procedure in detail. Description of the procedure: She was placed in left lateral rectus position and her vital signs were monitored. Conscious sedation was achieved using Versed and fentanyl. The flexible gastroscope was introduced down the esophagus , past the stomach, into the proximal duodenum Findings: Esophagus: Hiatal hernia with grade 3 esophagitis, showing linear ulcers. Photodocumentation and biopsy to rule out Esparza's changes were obtained. Stomach: Multiple antral and pyloric channel ulcers with slough along the base, indicating chronicity. These ranged in size from 2-4 mm. Biopsy for H. pylori was obtained. Duodenum: A chronic ulcer about 3 mm in size was found at the first part. She tolerated the procedure well and was taken back to the nursing area in a stable condition. Impression: Morbid obesity.esophagitis, antral, pyloric channel and duodenal ulcers. Biopsy results and Helicobacter status pending. Copies To: MICKEY WISEMAN XAVIER M MD Sep 11, 2017 12:48 pm
--- NOTE | 2017-09-11 12:50 | Discharge Inst-Simple/Standard ---
Discharge Inst-Standard Discharge Medications New, Converted or Re-Newed RX: Other Patient Instructions/Follow Up Plan of Care/Instructions/FU: to increase omeprazole to twice a day Activity as Tolerated: Yes Discharge Diet: No Restrictions RADHA JONHSTON MD Sep 11, 2017 12:50 pm
[2017-09-11 13:20] VITALS: BP 168/78
[2017-09-11 13:55] VITALS: BP 141/77
[2017-09-11 15:00] VITALS: BP 141/77
== END 2017-09-11 15:00 | disposition home or self-care (01) ==
LOC: ENDO 08:54
PROVIDERS: ATTEND Surgery
DX: K20.9 Esophagitis, unspecified (principal); K44.9 Diaphragmatic hernia without obstruction or gangrene; K25.9 Gastric ulcer, unspecified as acute or chronic, without hemorrhage or perforation; K26.9 Duodenal ulcer, unspecified as acute or chronic, without hemorrhage or perforation; I25.10 Atherosclerotic heart disease of native coronary artery without angina pectoris; I10 Essential (primary) hypertension; E78.00 Pure hypercholesterolemia, unspecified; Z95.5 Presence of coronary angioplasty implant and graft; E66.01 Morbid (severe) obesity due to excess calories; Z68.45 Body mass index [BMI] 70 or greater, adult
CPT/HCPCS: 84703; 88305

== ENCOUNTER → 2017-09-21 | Outpatient (CLI) | payer MEDICAID ==
[~2017-09-21] MED LIST changes: +NAPR220C11 PO
== END ==
LOC: CARD 11:50
PROVIDERS: ATTEND Internal Medicine Cardiovascular Disease
DX: I42.0 Dilated cardiomyopathy (principal); I25.10 Atherosclerotic heart disease of native coronary artery without angina pectoris; E66.9 Obesity, unspecified; K21.9 Gastro-esophageal reflux disease without esophagitis; I11.0 Hypertensive heart disease with heart failure; I44.69 Other fascicular block; G47.33 Obstructive sleep apnea (adult) (pediatric); I50.22 Chronic systolic (congestive) heart failure
CPT/HCPCS: 93306

== ENCOUNTER 2017-11-14 21:33 | Emergency (ER) | payer MEDICAID ==
[~2017-11-14] VITALS: Ht 157.5 cm; Wt 198.7 kg
[~2017-11-14 21:33] MED LIST changes: +LOSA1TAB23 PO; -LOSA1TAB70 PO; -METO-272 PO; +METO-370 PO; +METO50TA15 PO; -METO50TA2 PO
--- OUTSIDE RECORDS SUMMARY | 2017-11-14 21:39 | XMS REPORT ---
Author Author PIPPA DIMAS [facility] Address [address] [place] [address] Care Team Providers Care Collection Advisor Name Role Phone PIPPA DIMAS Unavailable PROBLEMS Type Condition ICD9-CM Code [id number] Code Onset Dates Condition Status SNOMED Code Problem Dependence on nocturnal oxygen therapy Z99.81 Active 72129105679393 Problem Restless legs syndrome G25.81 Active 908996458 Problem Left knee pain M25.562 Active 46862273 Problem Lumbar pain M54.5 Active 015111344 Problem Essential hypertension I10 Active 84785989 Problem Abdominal wall mass R19.00 Active 086084889 Problem Acquired hypothyroidism E03.9 Active 227372209 Problem Alteration in mobility due to weakness R53.1 Active 961141885 Problem Chronic stasis dermatitis I83.10 Active 63674142 Problem Lower abdominal pain R10.30 Active 47865718 Problem Edema of both legs R60.0 Active 121305971 Problem Stasis dermatitis without varicosities I87.2 Active 68582551 Problem Chronic pain syndrome G89.4 Active 682310727 Problem Gastroesophageal reflux disease without esophagitis K21.9 Active 346792320 Problem Lymphedema I89.0 Active 901071164 Problem Morbid obesity due to excess calories E66.01 Active 814657645 Problem Renal insufficiency N28.9 Active 910447631 Problem 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 Active 88166195 Problem 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 Active 16432719 Problem Urge incontinence of urine N39.41 Active 38012561 Problem Dependence on supplemental oxygen Z99.81 Active 309794280591 Problem Pain in right knee M25.561 Active 35532196 Problem Nocturnal hypoxia G47.34 Active 591538669 Problem Cellulitis L03.90 Active 377534547 Problem Pain in left knee M25.562 Active 254369088325763 Problem Other chronic pain 338.29 Active 83451705 Problem Hypoxia R09.02 Active 444888403 Problem Cellulitis of left lower extremity L03.116 Active 519014776 Problem Mixed hyperlipidemia E78.2 Active 688253080 ALLERGIES No Information SOCIAL HISTORY Never Assessed PLAN OF CARE VITAL SIGNS MEDICATIONS Medication Instructions Dosage Frequency Start Date End Date Duration Status Plavix 75 MG Orally Once a day 1 tablet 24h 30 days Active RESULTS No Results [...]
--- OUTSIDE RECORDS SUMMARY | 2017-11-14 21:40 | XMS REPORT ---
Author Author PIPPA DIMAS [facility] Address [address] [place] [address] Care Team Providers Care Cryptologic Supervisor Name Role Phone PIPPA DIMAS Unavailable PROBLEMS Type Condition ICD9-CM Code KLP50-FT Code Onset Dates Condition Status SNOMED Code Problem Dependence on nocturnal oxygen therapy Z99.81 Active 60038182706436 Problem Restless legs syndrome G25.81 Active 001264164 Problem Left knee pain M25.562 Active 07047372 Problem Lumbar pain M54.5 Active 976357027 Problem Essential hypertension I10 Active 21359641 Problem Abdominal wall mass R19.00 Active 944091312 Problem Acquired hypothyroidism E03.9 Active 166711670 Problem Alteration in mobility due to weakness R53.1 Active 546076946 Problem Chronic stasis dermatitis I83.10 Active 00630499 Problem Lower abdominal pain R10.30 Active 33112369 Problem Edema of both legs R60.0 Active 007615816 Problem Stasis dermatitis without varicosities I87.2 Active 52910628 Problem Chronic pain syndrome G89.4 Active 786307396 Problem Gastroesophageal reflux disease without esophagitis K21.9 Active 657257131 Problem Lymphedema I89.0 Active 778981585 Problem Morbid obesity due to excess calories E66.01 Active 921760619 Problem Renal insufficiency N28.9 Active 105056900 Problem 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 Active 27463125 Problem 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 Active 39645826 Problem Urge incontinence of urine N39.41 Active 48760266 Problem Dependence on supplemental oxygen Z99.81 Active 518363026179 Problem Pain in right knee M25.561 Active 66015792 Problem Nocturnal hypoxia G47.34 Active 289439023 Problem Cellulitis L03.90 Active 437175179 Problem Pain in left knee M25.562 Active 404159094145914 Problem Other chronic pain 338.29 Active 88312489 Problem Hypoxia R09.02 Active 103296122 Problem Cellulitis of left lower extremity L03.116 Active 967882941 Problem Mixed hyperlipidemia E78.2 Active 552441288 ALLERGIES No Information SOCIAL HISTORY Never Assessed [...]
--- OUTSIDE RECORDS SUMMARY | 2017-11-14 21:41 | XMS REPORT ---
Author Author PIPPA DIMAS [facility] Address [address] [place] [address] Care Team Providers Care Clinical Trainer Name Role Phone PIPPA DIMAS Unavailable PROBLEMS Type Condition ICD9-CM Code IKV54-UG Code Onset Dates Condition Status SNOMED Code Problem Dependence on nocturnal oxygen therapy Z99.81 Active 86116348053578 Problem Left knee pain M25.562 Active 85800957 Problem Essential hypertension I10 Active 37043941 Problem Lumbar pain M54.5 Active 434567793 Problem Restless legs syndrome G25.81 Active 469467271 Problem Acquired hypothyroidism E03.9 Active 546176892 Problem Chronic stasis dermatitis I83.10 Active 88337803 Problem Renal insufficiency N28.9 Active 493958182 Problem Edema of both legs R60.0 Active 069525081 Problem Morbid obesity due to excess calories E66.01 Active 359562923 Problem Stasis dermatitis without varicosities I87.2 Active 39339565 Problem Cellulitis L03.90 Active 079965719 Problem 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 Active 02821390 Problem Dependence on supplemental oxygen Z99.81 Active 785393272549 Problem 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 Active 35986101 Problem Morbid (severe) obesity due to excess calories E66.01 Active 011152600 Problem Bronchitis J40 Active 91756289 Problem Pain in right knee M25.561 Active 39326942 Problem Pain in left knee M25.562 Active 676421950350660 Problem Lymphedema I89.0 Active 529603150 Problem Urge incontinence of urine N39.41 Active 45561001 Problem Chronic pain syndrome G89.4 Active 301488712 Problem Body mass index (BMI) of 70 or greater in adult Z68.45 Active 292145785 Problem Gastroesophageal reflux disease without esophagitis K21.9 Active 961693596 Problem Mixed hyperlipidemia E78.2 Active 624948444 Problem Other chronic pain 338.29 Active 03096104 Problem Nocturnal hypoxia G47.34 Active 996743565 Problem Cellulitis of left lower extremity L03.116 Active 486165621 Problem Alteration in mobility due to weakness R53.1 Active 865106835 Problem Abdominal wall mass R19.00 Active 347178535 Problem Hypoxia R09.02 Active 667444190 Problem Lower abdominal pain R10.30 Active 18303566 ALLERGIES Substance Reaction Event Type Date Status Bactrim DS Unknown Drug Allergy March, Active SOCIAL HISTORY Never Assessed PLAN OF CARE Activity Details Follow Up 3 Months Reason:pain/thyroid VITAL SIGNS Height 62 in 2017-03-30 Weight 428.7 lbs 2017-03-30 Temperature 98.2 degrees Fahrenheit 2017-03-30 Heart Rate 102 bpm 2017-03-30 Respiratory Rate 22 2017-03-30 BMI 78.40 kg/m2 2017-03-30 Blood pressure systolic 137 mmHg 2017-03-30 Blood pressure diastolic 89 mmHg 2017-03-30 MEDICATIONS Medication Instructions Dosage Frequency Start Date End Date Duration Status Neurontin 300 MG Orally Once a day at night 1 capsule 30 Active Levothyroxine Sodium 75 mcg Orally Once a day 1 tablet on an empty stomach in the morning 24h 30 day(s) Active Omeprazole 20 MG TAKE ONE CAPSULE BY MOUTH ONCE DAILY BEFORE A MEAL 30 Active Oxygen 2L Active Losartan Potassium-HCTZ 100-25 MG Orally Once a day 1 tablet 24h 30 days Active Hydrocodone-Acetaminophen 5-325 MG Orally 3 times a day prn must last 28 days - must have appt for further refills 1 tablet as needed March, 28 days Active Plavix 75 MG Orally Once a day 1 tablet 24h Active Ropinirole HCl 4 MG Orally Once a day 1 tablet 1 to 3 hours before bedtime 24h 30 days Active Cyclobenzaprine HCl 10 MG TAKE ONE TABLET BY MOUTH ONCE DAILY NEEDED 17 Active Ropinirole HCl 2 MG Orally Once a day-NO FURTHER REFILLS UNTIL SEEN 1 tablet 1 to 3 hours before bedtime March, 16 days Active Potassium Chloride ER 20 MEQ Orally Once a day 1 tablet with food 24h Active Wheelchair 1 as directed March, Active Aspir-81 81 MG Orally Once a day 1 tablet 24h Active Clobetasol Propionate 0.05 % Externally Twice a day 1 application to affected area 12h March, Jun, 28 days Active Omeprazole 20 mg Orally Once a day 1 capsule 24h Active Albuterol Sulfate 90 mcg/actuation take 2 puffs by Inhalation route every 4 -6 hours as needed PRN cough or wheezing Jan, Active Simvastatin 20 mg TAKE ONE TABLET BY MOUTH ONCE DAILY IN THE EVENING 30 Active Metolazone 2.5 MG Orally Once a day 1 tablet 24h 30 Active Metoprolol Tartrate 50 mg Orally Twice a day 1 tablet with food 12h 30 days Active Cymbalta 60 mg Orally Once a day 1 capsule 24h 90 Active Keflex 500 mg Orally 4 times a day 1 capsule 6h March, March, 10 day(s) Active RESULTS Name Result Date Reference Range TSH 2017-03-30 TSH 0.013 0.450-4.500 CBC 2017-03-30 WBC 9.2 3.4-10.8 RBC 4.42 3.77-5.28 Hemoglobin 12.7 11.1-15.9 Hematocrit 39.7 34.0-46.6 MCV 90 79-97 MCH 28.7 26.6-33.0 MCHC 32.0 31.5-35.7 RDW 13.9 12.3-15.4 Platelets 248 150-379 Neutrophils 77 Lymphs 16 Monocytes 5 Eos 2 Basos 0 Neutrophils (Absolute) 7.1 1.4-7.0 Lymphs (Absolute) 1.4 0.7-3.1 Monocytes(Absolute) 0.4 0.1-0.9 Eos (Absolute) 0.2 0.0-0.4 Baso (Absolute) 0.0 0.0-0.2 Immature Granulocytes 0 Immature Grans (Abs) 0.0 0.0-0.1 LIPID PANEL 2017-03-30 Cholesterol, Total 151 100-199 Triglycerides 195 0-149 HDL Cholesterol 35 >39 VLDL Cholesterol Karlos 39 5-40 LDL Cholesterol Calc 77 0-99 CMP 2017-03-30 Glucose, Serum 93 65-99 BUN 19 6-24 Creatinine, Serum 1.09 0.57-1.00 eGFR If NonAfricn Am 63 >59 eGFR If Africn Am 73 >59 BUN/Creatinine Ratio 17 9-23 Sodium, Serum 139 134-144 Potassium, Serum 4.4 3.5-5.2 Chloride, Serum 100 96-106 Carbon Dioxide, Total 22 18-29 Calcium, Serum 9.2 8.7-10.2 Protein, Total, Serum 7.4 6.0-8.5 Albumin, Serum 3.6 3.5-5.5 Globulin, Total 3.8 1.5-4.5 A/G Ratio 0.9 1.2-2.2 Bilirubin, Total 0.4 0.0-1.2 Alkaline Phosphatase, S 74 39-117 AST (SGOT) 13 0-40 ALT (SGPT) 7 0-32 AMERITOX 2017-03-30 Mammogram, Bilateral Screening 2017-04-27 PROCEDURES Procedure Date Ordered Result Body Site No Charge March 30, 2017 LAB NOT BILLED BY [facility] March 30, 2017 IMMUNIZATIONS No Known Immunizations MEDICAL (GENERAL) HISTORY [...]
--- OUTSIDE RECORDS SUMMARY | 2017-11-14 21:41 | XMS REPORT ---
Author Author PIPPA DIMAS [facility] Address [address] [place] [address] Care Team Providers Care Probation Supervisor Name Role Phone PIPPA DIMAS Unavailable PROBLEMS Type Condition ICD9-CM Code [id number] Code Onset Dates Condition Status SNOMED Code Problem Dependence on nocturnal oxygen therapy Z99.81 Active 73926494887717 Problem Left knee pain M25.562 Active 28516567 Problem Essential hypertension I10 Active 31910758 Problem Lumbar pain M54.5 Active 858752739 Problem Restless legs syndrome G25.81 Active 587854481 Problem Acquired hypothyroidism E03.9 Active 631139534 Problem Chronic stasis dermatitis I83.10 Active 70542336 Problem Renal insufficiency N28.9 Active 750790840 Problem Edema of both legs R60.0 Active 634694220 Problem Morbid obesity due to excess calories E66.01 Active 255957878 Problem Stasis dermatitis without varicosities I87.2 Active 33141248 Problem Cellulitis L03.90 Active 018145647 Problem 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 Active 25640267 Problem Dependence on supplemental oxygen Z99.81 Active 426150198564 Problem 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 Active 99486479 Problem Morbid (severe) obesity due to excess calories E66.01 Active 326489079 Problem Bronchitis J40 Active 91353640 Problem Pain in right knee M25.561 Active 23384148 Problem Pain in left knee M25.562 Active 211302915379788 Problem Lymphedema I89.0 Active 368947137 Problem Urge incontinence of urine N39.41 Active 48289438 Problem Chronic pain syndrome G89.4 Active 839312782 Problem Body mass index (BMI) of 70 or greater in adult Z68.45 Active 169939327 Problem Gastroesophageal reflux disease without esophagitis K21.9 Active 533183985 Problem Mixed hyperlipidemia E78.2 Active 623009914 Problem Other chronic pain 338.29 Active 44245624 Problem Nocturnal hypoxia G47.34 Active 060442649 Problem Cellulitis of left lower extremity L03.116 Active 465348099 Problem Alteration in mobility due to weakness R53.1 Active 831995149 Problem Abdominal wall mass R19.00 Active 097479026 Problem Hypoxia R09.02 Active 991222300 Problem Lower abdominal pain R10.30 Active 01273291 ALLERGIES No Information SOCIAL HISTORY Never Assessed [...]
--- OUTSIDE RECORDS SUMMARY | 2017-11-14 21:41 | XMS REPORT ---
Author Author PIPPA DIMAS [facility] Address [address] [place] [address] Care Team Providers Care Network Security Consultant Name Role Phone PIPPA DIMAS Unavailable PROBLEMS Type Condition ICD9-CM Code [id number]-HX Code Onset Dates Condition Status SNOMED Code Problem Dependence on nocturnal oxygen therapy Z99.81 Active 17608906094769 Problem Restless legs syndrome G25.81 Active 984725421 Problem Left knee pain M25.562 Active 82238506 Problem Lumbar pain M54.5 Active 065780363 Problem Essential hypertension I10 Active 39362882 Problem Abdominal wall mass R19.00 Active 800003646 Problem Acquired hypothyroidism E03.9 Active 734109885 Problem Alteration in mobility due to weakness R53.1 Active 102058043 Problem Chronic stasis dermatitis I83.10 Active 70470427 Problem Lower abdominal pain R10.30 Active 39726291 Problem Edema of both legs R60.0 Active 228709628 Problem Stasis dermatitis without varicosities I87.2 Active 02494867 Problem Chronic pain syndrome G89.4 Active 332180389 Problem Gastroesophageal reflux disease without esophagitis K21.9 Active 620984526 Problem Lymphedema I89.0 Active 393567208 Problem Morbid obesity due to excess calories E66.01 Active 304499173 Problem Renal insufficiency N28.9 Active 859910684 Problem 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 Active 46353928 Problem 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 Active 66000273 Problem Urge incontinence of urine N39.41 Active 83971312 Problem Dependence on supplemental oxygen Z99.81 Active 304793208213 Problem Pain in right knee M25.561 Active 29605453 Problem Nocturnal hypoxia G47.34 Active 511096583 Problem Cellulitis L03.90 Active 761547841 Problem Pain in left knee M25.562 Active 001438350146174 Problem Other chronic pain 338.29 Active 69644779 Problem Hypoxia R09.02 Active 150058456 Problem Cellulitis of left lower extremity L03.116 Active 152726833 Problem Mixed hyperlipidemia E78.2 Active 210560826 ALLERGIES No Information SOCIAL HISTORY Never Assessed PLAN OF CARE VITAL SIGNS MEDICATIONS Medication Instructions Dosage Frequency Start Date End Date Duration Status Ropinirole HCl 2 MG Orally Once a day-NO FURTHER REFILLS UNTIL SEEN 1 tablet 1 to 3 hours before bedtime March, 16 days Active RESULTS No Results PROCEDURES No [...]
--- OUTSIDE RECORDS SUMMARY | 2017-11-14 21:47 | XMS REPORT | Continuity of Care Document ---
Author Author [facility] Address Unknown Phone Unavailable Allergies Active Description Code Type Severity Reaction Onset Reported/Identified Relationship to Patient Clinical Status Yes sulfamethoxazole [id number] Drug Allergy Unknown N/A 04/23/2006 Yes trimethoprim [id number] Drug Allergy Unknown N/A 04/23/2006 Yes Bactrim Drug Allergy 08/10/2009 Yes Bactrim Drug Allergy N/A N/A 08/10/2009 Medications There is no data. 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 10/19/1455 SVETA SAMS MD, Ot I89.0 LYMPHEDEMA, NOT ELSEWHERE CLASSIFIED 10/19/1455 SVETA SAMS MD, Ot L30.8 OTHER SPECIFIED DERMATITIS 08/10/2009 MICKEY WISEMAN DO 465.9 ACUTE UPPER RESPIRATORY INFECTIONS OF UNSPECIFIED SITE 08/10/2009 MICKEY WISEMAN DO 692.9 CONTACT DERMATITIS AND OTHER ECZEMA UNSPECIFIED CAUSE 08/10/2009 JORDEN MEZA MD 465.9 UPPER RESPIRATORY INFECTION 08/10/2009 JORDEN MEZA MD 692.9 CONTACT DERMATITIS AND OTHER ECZEMA UNSPECIFIED CAUSE 08/10/2009 JAY EARLY APRN 465.9 UPPER RESPIRATORY INFECTION 08/10/2009 JAY EARLY APRN 692.9 CONTACT DERMATITIS AND OTHER ECZEMA UNSPECIFIED CAUSE 08/10/2009 465.9 UPPER RESPIRATORY INFECTION 08/10/2009 692.9 CONTACT DERMATITIS AND OTHER ECZEMA UNSPECIFIED CAUSE 08/10/2009 JAY EARLY APRN R 465.9 UPPER RESPIRATORY INFECTION 08/10/2009 JAY EARLY APRN 692.9 CONTACT DERMATITIS AND OTHER ECZEMA UNSPECIFIED CAUSE 08/10/2009 465.9 UPPER RESPIRATORY INFECTION 08/10/2009 692.9 CONTACT DERMATITIS AND OTHER ECZEMA UNSPECIFIED CAUSE 08/10/2009 465.9 UPPER RESPIRATORY INFECTION 08/10/2009 692.9 CONTACT DERMATITIS AND OTHER ECZEMA UNSPECIFIED CAUSE 08/10/2009 465.9 UPPER RESPIRATORY INFECTION 08/10/2009 692.9 CONTACT DERMATITIS AND OTHER ECZEMA UNSPECIFIED CAUSE 08/10/2009 465.9 UPPER RESPIRATORY INFECTION 08/10/2009 692.9 CONTACT DERMATITIS AND OTHER ECZEMA UNSPECIFIED CAUSE 08/10/2009 465.9 UPPER RESPIRATORY INFECTION 08/10/2009 692.9 CONTACT DERMATITIS AND OTHER ECZEMA UNSPECIFIED CAUSE 08/10/2009 DIO CHI MD 465.9 UPPER RESPIRATORY INFECTION 08/10/2009 DIO CHI MD 692.9 CONTACT DERMATITIS AND OTHER ECZEMA UNSPECIFIED CAUSE 08/10/2009 WISEMAN DO MICKEY K 465.9 UPPER RESPIRATORY INFECTION 08/10/2009 WISEMAN DO MICKEY K 692.9 CONTACT DERMATITIS AND OTHER ECZEMA UNSPECIFIED CAUSE 08/10/2009 DIO CHI MD 465.9 UPPER RESPIRATORY INFECTION 08/10/2009 DIO CHI MD 692.9 CONTACT DERMATITIS AND OTHER ECZEMA UNSPECIFIED CAUSE 08/10/2009 JAY EARLY APRN R 465.9 UPPER RESPIRATORY INFECTION 08/10/2009 JAY EARLY APRN R 692.9 CONTACT DERMATITIS AND OTHER ECZEMA UNSPECIFIED CAUSE 08/10/2009 WISEMAN DO, MICKEY K 465.9 UPPER RESPIRATORY INFECTION 08/10/2009 WISEMAN DO, MICKEY K 692.9 CONTACT DERMATITIS AND OTHER ECZEMA UNSPECIFIED CAUSE 08/10/2009 DIO CHI MD 465.9 UPPER RESPIRATORY INFECTION 08/10/2009 DIO CHI MD 692.9 CONTACT DERMATITIS AND OTHER ECZEMA UNSPECIFIED CAUSE 08/10/2009 WISEMAN DO, MICKEY K 465.9 UPPER RESPIRATORY INFECTION 08/10/2009 WISEMAN DO MICKEY K 692.9 CONTACT DERMATITIS AND OTHER ECZEMA UNSPECIFIED CAUSE 08/10/2009 WISEMAN DO, MICKEY K 465.9 UPPER RESPIRATORY INFECTION 08/10/2009 WISEMAN DO, MICKEY K 692.9 CONTACT DERMATITIS AND OTHER ECZEMA UNSPECIFIED CAUSE 08/10/2009 JORDEN MEZA MD 465.9 UPPER RESPIRATORY INFECTION 08/10/2009 JORDEN MEZA MD 692.9 CONTACT DERMATITIS AND OTHER ECZEMA UNSPECIFIED CAUSE 08/10/2009 INOCENTE WEIR APRN S 465.9 UPPER RESPIRATORY INFECTION 08/10/2009 INOCENTE WEIR APRN S 692.9 CONTACT DERMATITIS AND OTHER ECZEMA UNSPECIFIED CAUSE 08/10/2009 WISEMAN DO, MICKEY K 465.9 UPPER RESPIRATORY INFECTION 08/10/2009 WISEMAN DO, MICKEY K 692.9 CONTACT DERMATITIS AND OTHER ECZEMA UNSPECIFIED CAUSE 08/10/2009 JORDEN MEZA MD 465.9 UPPER RESPIRATORY INFECTION 08/10/2009 JORDEN MEZA MD 692.9 CONTACT DERMATITIS AND OTHER ECZEMA UNSPECIFIED CAUSE 08/10/2009 DIO CHI MD M 465.9 UPPER RESPIRATORY INFECTION 08/10/2009 DIO CHI MD 692.9 CONTACT DERMATITIS AND OTHER ECZEMA UNSPECIFIED CAUSE 08/10/2009 DIO CHI MD M 465.9 UPPER RESPIRATORY INFECTION 08/10/2009 DIO CHI MD 692.9 CONTACT DERMATITIS AND OTHER ECZEMA UNSPECIFIED CAUSE 08/10/2009 DIO CHI MD M 465.9 UPPER RESPIRATORY INFECTION 08/10/2009 DIO CHI MD 692.9 CONTACT DERMATITIS AND OTHER ECZEMA UNSPECIFIED CAUSE 08/10/2009 DIO CHI MD M 465.9 UPPER RESPIRATORY INFECTION 08/10/2009 DIO CHI MD 692.9 CONTACT DERMATITIS AND OTHER ECZEMA UNSPECIFIED CAUSE 08/10/2009 WISEMAN DO, MICKEY K 465.9 UPPER RESPIRATORY INFECTION 08/10/2009 WISEMAN DO, MICKEY K 692.9 CONTACT DERMATITIS AND OTHER ECZEMA UNSPECIFIED CAUSE 08/10/2009 WISEMAN DO, MICKEY K 465.9 UPPER RESPIRATORY INFECTION 08/10/2009 WISEMAN DO, MICKEY K 692.9 CONTACT DERMATITIS AND OTHER ECZEMA UNSPECIFIED CAUSE 08/10/2009 WISEMAN DO, MICKEY K 465.9 UPPER RESPIRATORY INFECTION 08/10/2009 WISEMAN DO, MICKEY K 692.9 CONTACT DERMATITIS AND OTHER ECZEMA UNSPECIFIED CAUSE 08/10/2009 AAKASH PETTIT APRN 465.9 UPPER RESPIRATORY INFECTION 08/10/2009 AAKASH PETTIT APRN 692.9 CONTACT DERMATITIS AND OTHER ECZEMA UNSPECIFIED CAUSE 08/10/2009 AAKASH PETTIT APRN 465.9 UPPER RESPIRATORY INFECTION 08/10/2009 WILVER 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 DEPARTMENT, AAKASH T 692.9 CONTACT DERMATITIS AND OTHER ECZEMA UNSPECIFIED CAUSE 08/10/2009 MADL 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 DEPARTMENT, PIPPA L 465.9 UPPER RESPIRATORY INFECTION 08/10/2009 MADL 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 DEPARTMENT, PIPPA L 692.9 CONTACT DERMATITIS AND OTHER ECZEMA UNSPECIFIED CAUSE 08/10/2009 WISEMAN DO, MICKEY K 465.9 UPPER RESPIRATORY INFECTION 08/10/2009 WISEMAN DO, MICKEY K 692.9 CONTACT DERMATITIS AND OTHER ECZEMA UNSPECIFIED CAUSE 08/10/2009 WISEMAN DO, MICKEY K 465.9 UPPER RESPIRATORY INFECTION 08/10/2009 WISEMAN DO, MICKEY K 692.9 CONTACT DERMATITIS AND OTHER ECZEMA UNSPECIFIED CAUSE 08/10/2009 RAFAEL 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 DEPARTMENT, NICKOLAS R 465.9 UPPER RESPIRATORY INFECTION 08/10/2009 RAFAEL 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 DEPARTMENT, NICKOLAS R 692.9 CONTACT DERMATITIS AND OTHER ECZEMA UNSPECIFIED CAUSE 08/10/2009 JORDEN MEZA MD 465.9 ACUTE UPPER RESPIRATORY INFECTIONS OF UNSPECIFIED SITE 08/10/2009 JORDEN MEZA MD 692.9 CONTACT DERMATITIS AND OTHER ECZEMA UNSPECIFIED CAUSE 08/10/2009 WISEMAN DO, MICKEY K 465.9 UPPER RESPIRATORY INFECTION 08/10/2009 WISEMAN DO, MICKEY K 692.9 CONTACT DERMATITIS AND OTHER ECZEMA UNSPECIFIED CAUSE 08/10/2009 MADL 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 DEPARTMENT, PIPPA L 465.9 UPPER RESPIRATORY INFECTION 08/10/2009 MADL 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 DEPARTMENT, PIPPA L 692.9 CONTACT DERMATITIS AND OTHER ECZEMA UNSPECIFIED CAUSE 08/10/2009 MADL 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 DEPARTMENT, PIPPA L 465.9 UPPER RESPIRATORY INFECTION 08/10/2009 MADL 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 DEPARTMENT, PIPPA L 692.9 CONTACT DERMATITIS AND OTHER ECZEMA UNSPECIFIED CAUSE 09/02/2009 WISEMAN DO, MICKEY K 461.0 ACUTE MAXILLARY SINUSITIS 09/02/2009 JORDEN MEZA MD 461.0 ACUTE MAXILLARY SINUSITIS 09/02/2009 JAY EARLY APRN R 461.0 ACUTE MAXILLARY SINUSITIS 09/02/2009 461.0 ACUTE MAXILLARY SINUSITIS 09/02/2009 JAY EARLY APRN R 461.0 ACUTE MAXILLARY SINUSITIS 09/02/2009 461.0 ACUTE MAXILLARY SINUSITIS 09/02/2009 461.0 ACUTE MAXILLARY SINUSITIS 09/02/2009 461.0 ACUTE MAXILLARY SINUSITIS 09/02/2009 461.0 ACUTE MAXILLARY SINUSITIS 09/02/2009 461.0 ACUTE MAXILLARY SINUSITIS 09/02/2009 DIO CHI MD 461.0 ACUTE MAXILLARY SINUSITIS 09/02/2009 WISEMAN DO MICKEY K 461.0 ACUTE MAXILLARY SINUSITIS 09/02/2009 DIO CHI MD M 461.0 ACUTE MAXILLARY SINUSITIS 09/02/2009 JAY EARLY APRN R 461.0 ACUTE MAXILLARY SINUSITIS 09/02/2009 WISEMAN DO, MICKEY K 461.0 ACUTE MAXILLARY SINUSITIS 09/02/2009 DIO CHI MD M 461.0 ACUTE MAXILLARY SINUSITIS 09/02/2009 WISEMAN DO, MICKEY K 461.0 ACUTE MAXILLARY SINUSITIS 09/02/2009 WISEMAN DO, MICKEY K 461.0 ACUTE MAXILLARY SINUSITIS 09/02/2009 JORDEN MEZA MD 461.0 ACUTE MAXILLARY SINUSITIS 09/02/2009 INOCENTE WEIR APRN 461.0 ACUTE MAXILLARY SINUSITIS 09/02/2009 WISEMAN LUX SEXTONA K 461.0 ACUTE MAXILLARY SINUSITIS 09/02/2009 JORDEN MEZA MD 461.0 ACUTE MAXILLARY SINUSITIS 09/02/2009 DIO CHI MD 461.0 ACUTE MAXILLARY SINUSITIS 09/02/2009 DIO CHI MD M 461.0 ACUTE MAXILLARY SINUSITIS 09/02/2009 DIO CHI MD M 461.0 ACUTE MAXILLARY SINUSITIS 09/02/2009 DIO CHI MD M 461.0 ACUTE MAXILLARY SINUSITIS 09/02/2009 WISEMAN DO MICKEY K 461.0 ACUTE MAXILLARY SINUSITIS 09/02/2009 WISEMAN DO, MICKEY K 461.0 ACUTE MAXILLARY SINUSITIS 09/02/2009 WISEMAN DO, MICKEY K 461.0 ACUTE MAXILLARY SINUSITIS 09/02/2009 AAKASH PETTIT APRN 461.0 ACUTE MAXILLARY SINUSITIS 09/02/2009 AAKASH PETTIT APRN 461.0 ACUTE MAXILLARY SINUSITIS 09/02/2009 PIPPA DIMAS APRN 461.0 ACUTE MAXILLARY SINUSITIS 09/02/2009 WISEMAN DO, MICKEY K 461.0 ACUTE MAXILLARY SINUSITIS 09/02/2009 WISEMAN DO, MICKEY K 461.0 ACUTE MAXILLARY SINUSITIS 09/02/2009 NICKOLAS HALL APRN R 461.0 ACUTE MAXILLARY SINUSITIS 09/02/2009 JORDEN MEZA MD 461.0 ACUTE MAXILLARY SINUSITIS 09/02/2009 MICKEY WISEMAN DO K 461.0 ACUTE MAXILLARY SINUSITIS 09/02/2009 MADDIEArjun PINTOPIPPA L 461.0 ACUTE MAXILLARY SINUSITIS 09/02/2009 JUDIE PINTO PIPPA L 461.0 ACUTE MAXILLARY SINUSITIS 03/19/2010 Ot 327.23 03/19/2010 Ot 401.9 03/19/2010 Ot 530.81 04/28/2010 Ot 327.23 08/09/2010 Ot 244.9 08/09/2010 Ot 278.01 08/09/2010 Ot 401.9 08/09/2010 Ot 426.3 08/09/2010 Ot 530.81 08/09/2010 Ot 729.81 08/09/2010 Ot 786.50 08/09/2010 Ot V58.69 08/09/2010 Ot V85.4 08/17/2012 LUX WISEMAN DOA K 244.9 HYPOTHYROIDISM 08/17/2012 LUX WISEMAN DOA K 272.4 HYPERLIPIDEMIA 08/17/2012 LUX WISEMAN DOA K 278.00 OBESITY 08/17/2012 LUX WISEMAN DOA K 296.90 EPISODIC MOOD DISORDERS 08/17/2012 BOWEN SEXTON MICKEY K 338.29 CHRONIC PAIN 08/17/2012 LUX WISEMAN DOA K 593.9 RENAL INSUFFICIENCY 08/17/2012 JORDEN MEZA MD 244.9 HYPOTHYROIDISM 08/17/2012 JORDEN MEZA MD 272.4 HYPERLIPIDEMIA 08/17/2012 JORDEN MEZA MD 278.00 OBESITY 08/17/2012 JORDEN MEZA MD 296.90 EPISODIC MOOD DISORDERS 08/17/2012 JORDEN MEZA MD 338.29 CHRONIC PAIN 08/17/2012 JORDEN MEZA MD 593.9 RENAL INSUFFICIENCY 08/17/2012 JAY EARLY APRN R 244.9 HYPOTHYROIDISM 08/17/2012 JAY EARLY APRN R 272.4 HYPERLIPIDEMIA 08/17/2012 JAY EARLY APRN R 278.00 OBESITY 08/17/2012 JAY EARLY APRN R 296.90 EPISODIC MOOD DISORDERS 08/17/2012 JAY EARLY APRN R 338.29 CHRONIC PAIN 08/17/2012 ERA EARLY APRNIA R 593.9 RENAL INSUFFICIENCY 08/17/2012 244.9 HYPOTHYROIDISM 08/17/2012 272.4 HYPERLIPIDEMIA 08/17/2012 278.00 OBESITY 08/17/2012 296.90 EPISODIC MOOD DISORDERS 08/17/2012 338.29 CHRONIC PAIN 08/17/2012 593.9 RENAL INSUFFICIENCY 08/17/2012 JUAN EARLY APRNRICIA R 244.9 HYPOTHYROIDISM 08/17/2012 JUAN EARLY APRNRICIA R 272.4 HYPERLIPIDEMIA 08/17/2012 JUAN EARLY APRNRICIA R 278.00 OBESITY 08/17/2012 JUAN EARLY APRNRICIA R 296.90 EPISODIC MOOD DISORDERS 08/17/2012 JUAN EARLY APRNRICIA R 338.29 CHRONIC PAIN 08/17/2012 ERA EARLY APRNIA R 593.9 RENAL INSUFFICIENCY 08/17/2012 244.9 HYPOTHYROIDISM 08/17/2012 272.4 HYPERLIPIDEMIA 08/17/2012 278.00 OBESITY 08/17/2012 296.90 EPISODIC MOOD DISORDERS 08/17/2012 338.29 CHRONIC PAIN 08/17/2012 593.9 RENAL INSUFFICIENCY 08/17/2012 244.9 HYPOTHYROIDISM 08/17/2012 272.4 HYPERLIPIDEMIA 08/17/2012 278.00 OBESITY 08/17/2012 296.90 EPISODIC MOOD DISORDERS 08/17/2012 338.29 CHRONIC PAIN 08/17/2012 593.9 RENAL INSUFFICIENCY 08/17/2012 244.9 HYPOTHYROIDISM 08/17/2012 272.4 HYPERLIPIDEMIA 08/17/2012 278.00 OBESITY 08/17/2012 296.90 EPISODIC MOOD DISORDERS 08/17/2012 338.29 CHRONIC PAIN 08/17/2012 593.9 RENAL INSUFFICIENCY 08/17/2012 244.9 HYPOTHYROIDISM 08/17/2012 272.4 HYPERLIPIDEMIA 08/17/2012 278.00 OBESITY 08/17/2012 296.90 EPISODIC MOOD DISORDERS 08/17/2012 338.29 CHRONIC PAIN 08/17/2012 593.9 RENAL INSUFFICIENCY 08/17/2012 244.9 HYPOTHYROIDISM 08/17/2012 272.4 HYPERLIPIDEMIA 08/17/2012 278.00 OBESITY 08/17/2012 296.90 EPISODIC MOOD DISORDERS 08/17/2012 338.29 CHRONIC PAIN 08/17/2012 593.9 RENAL INSUFFICIENCY 08/17/2012 ALON WHITE, DIO Castro 244.9 HYPOTHYROIDISM 08/17/2012 DIO CHI MD 272.4 HYPERLIPIDEMIA 08/17/2012 DIO CHI MD 278.00 OBESITY 08/17/2012 DIO CHI MD 296.90 EPISODIC MOOD DISORDERS 08/17/2012 DIO CHI MD 338.29 CHRONIC PAIN 08/17/2012 DIO CHI MD 593.9 RENAL INSUFFICIENCY 08/17/2012 WISEMAN DO, MICKEY K 244.9 HYPOTHYROIDISM 08/17/2012 WISEMAN DO, MICKEY K 272.4 HYPERLIPIDEMIA 08/17/2012 WISEMAN DO, MICKEY K 278.00 OBESITY 08/17/2012 WISEMAN DO, MICKEY K 296.90 EPISODIC MOOD DISORDERS 08/17/2012 WISEMAN DO, MICKEY K 338.29 CHRONIC PAIN 08/17/2012 WISEMAN DO, MICKEY K 593.9 RENAL INSUFFICIENCY 08/17/2012 DIO CHI MD 244.9 HYPOTHYROIDISM 08/17/2012 DIO CHI MD 272.4 HYPERLIPIDEMIA 08/17/2012 DIO CHI MD 278.00 OBESITY 08/17/2012 DIO CHI MD 296.90 EPISODIC MOOD DISORDERS 08/17/2012 DIO CHI MD 338.29 CHRONIC PAIN 08/17/2012 DIO CHI MD 593.9 RENAL INSUFFICIENCY 08/17/2012 JUAN EARLY APRNRICIA R 244.9 HYPOTHYROIDISM 08/17/2012 JUAN EARLY APRNRICIA R 272.4 HYPERLIPIDEMIA 08/17/2012 SHARATH PINTO JAY R 278.00 OBESITY 08/17/2012 SHARATH PINTO JAY R 296.90 EPISODIC MOOD DISORDERS 08/17/2012 SHARATH PINTO JAY R 338.29 CHRONIC PAIN 08/17/2012 SHARATH PINTO JAY R 593.9 RENAL INSUFFICIENCY 08/17/2012 WISEMAN DO, MICKEY K 244.9 HYPOTHYROIDISM 08/17/2012 WISEMAN DO, MICKEY K 272.4 HYPERLIPIDEMIA 08/17/2012 WISEMAN DO, MICKEY K 278.00 OBESITY 08/17/2012 WISEMAN DO, MICKEY K 296.90 EPISODIC MOOD DISORDERS 08/17/2012 WISEMAN DO, MICKEY K 338.29 CHRONIC PAIN 08/17/2012 WISEMAN DO, MICKEY K 593.9 RENAL INSUFFICIENCY 08/17/2012 DIO CHI MD 244.9 HYPOTHYROIDISM 08/17/2012 DIO CHI MD 272.4 HYPERLIPIDEMIA 08/17/2012 DIO CHI MD 278.00 OBESITY 08/17/2012 DIO CHI MD 296.90 EPISODIC MOOD DISORDERS 08/17/2012 DIO CHI MD 338.29 CHRONIC PAIN 08/17/2012 DIO CHI MD 593.9 RENAL INSUFFICIENCY 08/17/2012 WISEMAN DO, MICKEY K 244.9 HYPOTHYROIDISM 08/17/2012 WISEMAN DO, MICKEY K 272.4 HYPERLIPIDEMIA 08/17/2012 WISEMAN DO, MICKEY K 278.00 OBESITY 08/17/2012 WISEMAN DO, MICKEY K 296.90 EPISODIC MOOD DISORDERS 08/17/2012 WISEMAN DO, MICKEY K 338.29 CHRONIC PAIN 08/17/2012 WISEMAN DO, MICKEY K 593.9 RENAL INSUFFICIENCY 08/17/2012 WISEMAN DO, MICKEY K 244.9 HYPOTHYROIDISM 08/17/2012 WISEMAN DO, MICKEY K 272.4 HYPERLIPIDEMIA 08/17/2012 WISEMAN DO, MICKEY K 278.00 OBESITY 08/17/2012 WISEMAN DO, MICKEY K 296.90 EPISODIC MOOD DISORDERS 08/17/2012 WISEMAN DO, MICKEY K 338.29 CHRONIC PAIN 08/17/2012 WISEMAN DO, MICKEY K 593.9 RENAL INSUFFICIENCY 08/17/2012 JORDEN MEZA MD 244.9 HYPOTHYROIDISM 08/17/2012 JORDEN MEZA MD 272.4 HYPERLIPIDEMIA 08/17/2012 JORDEN MEZA MD 278.00 OBESITY 08/17/2012 JORDEN MEZA MD 296.90 EPISODIC MOOD DISORDERS 08/17/2012 JORDEN MEZA MD 338.29 CHRONIC PAIN 08/17/2012 JORDEN MEZA MD 593.9 RENAL INSUFFICIENCY 08/17/2012 CARMELLA 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 DEPARTMENT, INOCENTE S 244.9 HYPOTHYROIDISM 08/17/2012 CARMELLA 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 DEPARTMENT, INOCENTE S 272.4 HYPERLIPIDEMIA 08/17/2012 CARMELLA 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 DEPARTMENT, INOCENTE S 278.00 OBESITY 08/17/2012 CARMELLA 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 DEPARTMENT, INOCENTE S 296.90 EPISODIC MOOD DISORDERS 08/17/2012 CARMELLA 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 DEPARTMENT, INOCENTE S 338.29 CHRONIC PAIN 08/17/2012 CARMELLA 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 DEPARTMENT, INOCENTE S 593.9 RENAL INSUFFICIENCY 08/17/2012 WISEMAN DO, MICKEY K 244.9 HYPOTHYROIDISM 08/17/2012 WISEMAN DO, MICKEY K 272.4 HYPERLIPIDEMIA 08/17/2012 WISEMAN DO, MICKEY K 278.00 OBESITY 08/17/2012 WISEMAN DO, MICKEY K 296.90 EPISODIC MOOD DISORDERS 08/17/2012 WISEMAN DO, MICKEY K 338.29 CHRONIC PAIN 08/17/2012 WISEMAN DO, MICKEY K 593.9 RENAL INSUFFICIENCY 08/17/2012 JORDEN MEZA MD 244.9 HYPOTHYROIDISM 08/17/2012 JORDEN MEZA MD 272.4 HYPERLIPIDEMIA 08/17/2012 JORDEN MEZA MD 278.00 OBESITY 08/17/2012 JORDEN MEZA MD 296.90 EPISODIC MOOD DISORDERS 08/17/2012 JORDEN MEZA MD 338.29 CHRONIC PAIN 08/17/2012 JORDEN MEZA MD 593.9 RENAL INSUFFICIENCY 08/17/2012 DIO CHI MD 244.9 HYPOTHYROIDISM 08/17/2012 DIO CHI MD 272.4 HYPERLIPIDEMIA 08/17/2012 DIO CHI MD 278.00 OBESITY 08/17/2012 DIO CHI MD 296.90 EPISODIC MOOD DISORDERS 08/17/2012 DIO CHI MD 338.29 CHRONIC PAIN 08/17/2012 DIO CHI MD 593.9 RENAL INSUFFICIENCY 08/17/2012 DIO CHI MD 244.9 HYPOTHYROIDISM 08/17/2012 DIO CIH MD 272.4 HYPERLIPIDEMIA 08/17/2012 DOI CHI MD 278.00 OBESITY 08/17/2012 DIO CHI MD 296.90 EPISODIC MOOD DISORDERS 08/17/2012 DIO CHI MD 338.29 CHRONIC PAIN 08/17/2012 DIO CHI MD 593.9 RENAL INSUFFICIENCY 08/17/2012 DIO CHI MD 244.9 HYPOTHYROIDISM 08/17/2012 DIO CHI MD M 272.4 HYPERLIPIDEMIA 08/17/2012 DIO CHI MD M 278.00 OBESITY 08/17/2012 DIO CHI MD M 296.90 EPISODIC MOOD DISORDERS 08/17/2012 DIO CHI MD 338.29 CHRONIC PAIN 08/17/2012 DIO CHI MD 593.9 RENAL INSUFFICIENCY 08/17/2012 DIO CHI MD 244.9 HYPOTHYROIDISM 08/17/2012 DIO CHI MD 272.4 HYPERLIPIDEMIA 08/17/2012 DIO CHI MD 278.00 OBESITY 08/17/2012 DIO CHI MD 296.90 EPISODIC MOOD DISORDERS 08/17/2012 DIO CHI MD 338.29 CHRONIC PAIN 08/17/2012 DIO CHI MD 593.9 RENAL INSUFFICIENCY 08/17/2012 WISEMAN DO, MICKEY K 244.9 HYPOTHYROIDISM 08/17/2012 WISEMAN DO, MICKEY K 272.4 HYPERLIPIDEMIA 08/17/2012 WISEMAN DO, MICKEY K 278.00 OBESITY 08/17/2012 WISEMAN DO, MICKEY K 296.90 EPISODIC MOOD DISORDERS 08/17/2012 WISEMAN DO, MICKEY K 338.29 CHRONIC PAIN 08/17/2012 WISEMAN DO, MICKEY K 593.9 RENAL INSUFFICIENCY 08/17/2012 WISEMAN DO, MICKEY K 244.9 HYPOTHYROIDISM 08/17/2012 WISEMAN DO, MICKEY K 272.4 HYPERLIPIDEMIA 08/17/2012 WISEMAN DO, MICKEY K 278.00 OBESITY 08/17/2012 WISEMAN DO, MICKEY K 296.90 EPISODIC MOOD DISORDERS 08/17/2012 WISEMAN DO, MICKEY K 338.29 CHRONIC PAIN 08/17/2012 WISEMAN DO, MICKEY K 593.9 RENAL INSUFFICIENCY 08/17/2012 WISEMAN DO, MICKEY K 244.9 HYPOTHYROIDISM 08/17/2012 WISEMAN DO, MICKEY K 272.4 HYPERLIPIDEMIA 08/17/2012 WISEMAN DO, MICKEY K 278.00 OBESITY 08/17/2012 WISEMAN DO, MICKEY K 296.90 EPISODIC MOOD DISORDERS 08/17/2012 WISEMAN DO, MICKEY K 338.29 CHRONIC PAIN 08/17/2012 WISEMAN DO, MICKEY K 593.9 RENAL INSUFFICIENCY 08/17/2012 AAKASH PETTIT APRN 244.9 HYPOTHYROIDISM 08/17/2012 AAKASH PETTIT APRN 272.4 HYPERLIPIDEMIA 08/17/2012 AAKASH PETTIT APRN 278.00 OBESITY 08/17/2012 AAKASH PETTIT APRN 296.90 EPISODIC MOOD DISORDERS 08/17/2012 AAKASH PETTIT APRN 338.29 CHRONIC PAIN 08/17/2012 AAKASH PETTIT APRN 593.9 RENAL INSUFFICIENCY 08/17/2012 WILVER MAZANAAKASH T 244.9 HYPOTHYROIDISM 08/17/2012 WILVER MAZAN, AAKASH T 272.4 HYPERLIPIDEMIA 08/17/2012 WILVER MAZAN, AAKASH T 278.00 OBESITY 08/17/2012 WILVER MAZANAAKASH T 296.90 EPISODIC MOOD DISORDERS 08/17/2012 WILVER MAZAN, AAKASH T 338.29 CHRONIC PAIN 08/17/2012 WILVER MAZAAAKASH Castrejon T 593.9 RENAL INSUFFICIENCY 08/17/2012 MADL 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 DEPARTMENT, PIPPA L 244.9 HYPOTHYROIDISM 08/17/2012 MADL 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 DEPARTMENT, PIPPA L 272.4 HYPERLIPIDEMIA 08/17/2012 MADL 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 DEPARTMENT, PIPPA L 278.00 OBESITY 08/17/2012 MADL 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 DEPARTMENT, PIPPA L 296.90 EPISODIC MOOD DISORDERS 08/17/2012 MADL 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 DEPARTMENT, PIPPA L 338.29 CHRONIC PAIN 08/17/2012 MADL 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 DEPARTMENT, PIPPA L 593.9 RENAL INSUFFICIENCY 08/17/2012 WISEMAN DO, MICKEY K 244.9 HYPOTHYROIDISM 08/17/2012 WISEMAN DO, MICKEY K 272.4 HYPERLIPIDEMIA 08/17/2012 WISEMAN DO, MICKEY K 278.00 OBESITY 08/17/2012 WISEMAN DO, MICKEY K 296.90 EPISODIC MOOD DISORDERS 08/17/2012 WISEMAN DO, MICKEY K 338.29 CHRONIC PAIN 08/17/2012 WISEMAN DO, MICKEY K 593.9 RENAL INSUFFICIENCY 08/17/2012 WISEMAN DO, MICKEY K 244.9 HYPOTHYROIDISM 08/17/2012 WISEMAN DO, MICKEY K 272.4 HYPERLIPIDEMIA 08/17/2012 WISEMAN DO, MICKEY K 278.00 OBESITY 08/17/2012 WISEMAN DO, MICKEY K 296.90 EPISODIC MOOD DISORDERS 08/17/2012 WISEMAN DO, MICKEY K 338.29 CHRONIC PAIN 08/17/2012 WISEMAN DO, MICKEY K 593.9 RENAL INSUFFICIENCY 08/17/2012 RAFAEL 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, NICKOLAS R 244.9 HYPOTHYROIDISM 08/17/2012 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, NICKOLAS R 272.4 HYPERLIPIDEMIA 08/17/2012 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, NICKOLAS R 278.00 OBESITY 08/17/2012 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, NICKOLAS R 296.90 EPISODIC MOOD DISORDERS 08/17/2012 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, NICKOLAS R 338.29 CHRONIC PAIN 08/17/2012 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, NICKOLAS R 593.9 RENAL INSUFFICIENCY 08/17/2012 JORDEN MEZA MD 244.9 HYPOTHYROIDISM 08/17/2012 JORDEN MEZA MD 272.4 HYPERLIPIDEMIA 08/17/2012 JORDEN MEZA MD 278.00 OBESITY 08/17/2012 JORDEN MEZA MD 296.90 EPISODIC MOOD DISORDERS 08/17/2012 JORDEN MEZA MD 338.29 CHRONIC PAIN 08/17/2012 JORDEN MEZA MD 593.9 RENAL INSUFFICIENCY 08/17/2012 WISEMAN DO, MICKEY K 244.9 HYPOTHYROIDISM 08/17/2012 WISEMAN DO, MICKEY K 272.4 HYPERLIPIDEMIA 08/17/2012 WISEMAN DO, MICKEY K 278.00 OBESITY 08/17/2012 WISEMAN DO, MICKEY K 296.90 EPISODIC MOOD DISORDERS 08/17/2012 WISEMAN DO, MICKEY K 338.29 CHRONIC PAIN 08/17/2012 WISEMAN DO, MICKEY K 593.9 RENAL INSUFFICIENCY 08/17/2012 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, PIPPA L 244.9 HYPOTHYROIDISM 08/17/2012 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, PIPPA L 272.4 HYPERLIPIDEMIA 08/17/2012 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, PIPPA L 278.00 OBESITY 08/17/2012 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, PIPPA L 296.90 EPISODIC MOOD DISORDERS 08/17/2012 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, PIPPA L 338.29 CHRONIC PAIN 08/17/2012 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, PIPPA L 593.9 RENAL INSUFFICIENCY 08/17/2012 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, PIPPA L 244.9 HYPOTHYROIDISM 08/17/2012 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, PIPPA L 272.4 HYPERLIPIDEMIA 08/17/2012 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, PIPPA L 278.00 OBESITY 08/17/2012 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, PIPPA L 296.90 EPISODIC MOOD DISORDERS 08/17/2012 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, PIPPA L 338.29 CHRONIC PAIN 08/17/2012 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, PIPPA L 593.9 RENAL INSUFFICIENCY 09/02/2012 Ot 782.1 NONSPECIF SKIN ERUPT NEC 09/02/2012 Ot 995.27 OTHER DRUG ALLERGY 09/02/2012 Ot E942.2 ADV EFF ANTILIPEMICS 11/16/2012 WISEMAN DO MICKEY K 466.0 BRONCHITIS, ACUTE 11/16/2012 WISEMAN DO, MICKEY K 786.07 WHEEZING 11/16/2012 WISEMAN , MICKEY K 786.2 COUGH 11/16/2012 JORDEN MEZA MD 466.0 BRONCHITIS, ACUTE 11/16/2012 JORDEN MEZA MD 786.07 WHEEZING 11/16/2012 JORDEN MEZA MD 786.2 COUGH 11/16/2012 EARLY 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, JAY R 466.0 BRONCHITIS, ACUTE 11/16/2012 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, JAY R 786.07 WHEEZING 11/16/2012 E[employer]LY 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, JAY R 786.2 cough 11/16/2012 466.0 BRONCHITIS, ACUTE 11/16/2012 786.07 WHEEZING 11/16/2012 786.2 cough 11/16/2012 EARLY 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 DE[employer]MENT, JAY R 466.0 BRONCHITIS, ACUTE 11/16/2012 E[employer]LY 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MENT, JAY R 786.07 WHEEZING 11/16/2012 EARLY 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MENT, JAY R 786.2 cough 11/16/2012 466.0 BRONCHITIS, ACUTE 11/16/2012 786.07 WHEEZING 11/16/2012 786.2 cough 11/16/2012 466.0 BRONCHITIS, ACUTE 11/16/2012 786.07 WHEEZING 11/16/2012 786.2 cough 11/16/2012 466.0 BRONCHITIS, ACUTE 11/16/2012 786.07 WHEEZING 11/16/2012 786.2 cough 11/16/2012 466.0 BRONCHITIS, ACUTE 11/16/2012 786.07 WHEEZING 11/16/2012 786.2 cough 11/16/2012 466.0 BRONCHITIS, ACUTE 11/16/2012 786.07 WHEEZING 11/16/2012 786.2 cough 11/16/2012 DIO CHI MD 466.0 BRONCHITIS, ACUTE 11/16/2012 DIO CHI MD 786.07 WHEEZING 11/16/2012 DIO CHI MD 786.2 cough 11/16/2012 BOWEN SEXTON MICKEY K 466.0 BRONCHITIS, ACUTE 11/16/2012 BOWEN SEXTON MICKEY K 786.07 WHEEZING 11/16/2012 WISEMAN DO MICKEY K 786.2 cough 11/16/2012 DIO CHI MD 466.0 BRONCHITIS, ACUTE 11/16/2012 DIO CHI MD 786.07 WHEEZING 11/16/2012 DIO CHI MD 786.2 cough 11/16/2012 SHARATH 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, JAY R 466.0 BRONCHITIS, ACUTE 11/16/2012 SHARATH PINTO, JAY R 786.07 WHEEZING 11/16/2012 SHARATH PINTO JAY R 786.2 cough 11/16/2012 WISEMAN DO, MICKEY K 466.0 BRONCHITIS, ACUTE 11/16/2012 WISEMAN DO, MICKEY K 786.07 WHEEZING 11/16/2012 WISEMAN DO, MICKEY K 786.2 cough 11/16/2012 DIO CHI MD 466.0 BRONCHITIS, ACUTE 11/16/2012 DIO CHI MD 786.07 WHEEZING 11/16/2012 DIO CHI MD 786.2 cough 11/16/2012 WISEMAN DO, MICKEY K 466.0 BRONCHITIS, ACUTE 11/16/2012 WISEMAN DO, MICKEY K 786.07 WHEEZING 11/16/2012 WISEMAN DO, MICKEY K 786.2 cough 11/16/2012 WISEMAN DO, MICKEY K 466.0 BRONCHITIS, ACUTE 11/16/2012 WISEMAN DO, MICKEY K 786.07 WHEEZING 11/16/2012 WISEMAN DO, MICKEY K 786.2 cough 11/16/2012 JORDEN MEZA MD 466.0 BRONCHITIS, ACUTE 11/16/2012 JORDEN MEZA MD 786.07 WHEEZING 11/16/2012 JORDEN MEZA MD 786.2 COUGH 11/16/2012 CARMELLA PINTO INOCENTE S 466.0 BRONCHITIS, ACUTE 11/16/2012 CARMELLA PINTO INOCENTE S 786.07 WHEEZING 11/16/2012 CARMELLA PINTO INOCENTE S 786.2 COUGH 11/16/2012 WISEMAN DO, MICKEY K 466.0 BRONCHITIS, ACUTE 11/16/2012 WISEMAN DO, MICKEY K 786.07 WHEEZING 11/16/2012 WISEMAN DO, MICKEY K 786.2 COUGH 11/16/2012 JORDEN MEZA MD 466.0 BRONCHITIS, ACUTE 11/16/2012 JORDEN MEZA MD 786.07 WHEEZING 11/16/2012 JORDEN MEZA MD 786.2 COUGH 11/16/2012 DIO CHI MD 466.0 BRONCHITIS, ACUTE 11/16/2012 DIO CHI MD 786.07 WHEEZING 11/16/2012 DIO CHI MD 786.2 COUGH 11/16/2012 ALON WHITE, DIO M 466.0 BRONCHITIS, ACUTE 11/16/2012 ALON WHITE, DIO M 786.07 WHEEZING 11/16/2012 ALON WHITE, DIO M 786.2 COUGH 11/16/2012 ALON WHITE, DIO M 466.0 BRONCHITIS, ACUTE 11/16/2012 ALON WHITE, DIO M 786.07 WHEEZING 11/16/2012 ALON WHITE, DIO M 786.2 COUGH 11/16/2012 ALON WHITE, DIO M 466.0 BRONCHITIS, ACUTE 11/16/2012 ALON WHITE, DIO M 786.07 WHEEZING 11/16/2012 ALON WHITE, DIO M 786.2 COUGH 11/16/2012 WISEMAN DO, MICKEY K 466.0 BRONCHITIS, ACUTE 11/16/2012 WISEMAN DO, MICKEY K 786.07 WHEEZING 11/16/2012 WISEMAN DO, MICKEY K 786.2 COUGH 11/16/2012 WISEMAN DO, MICKEY K 466.0 BRONCHITIS, ACUTE 11/16/2012 WISEMAN DO, MICKEY K 786.07 WHEEZING 11/16/2012 WISEMAN DO, MICKEY K 786.2 COUGH 11/16/2012 WISEMAN DO, MICKEY K 466.0 BRONCHITIS, ACUTE 11/16/2012 WISEMAN DO, MICKEY K 786.07 WHEEZING 11/16/2012 WISEMAN DO, MICKEY K 786.2 COUGH 11/16/2012 AAKASH PETTIT APRN T 466.0 BRONCHITIS, ACUTE 11/16/2012 WILVER 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 DEPARTMENT, AAKASH T 786.07 WHEEZING 11/16/2012 WILVER 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 DEPARTMENT, AAKASH T 786.2 COUGH 11/16/2012 WILVER PINTO AAKASH T 466.0 BRONCHITIS, ACUTE 11/16/2012 WILVER 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 DEPARTMENT AAKASH T 786.07 WHEEZING 11/16/2012 WILVER 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 DEPARTMENT, AAKASH T 786.2 COUGH 11/16/2012 MADL 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 DEPARTMENT, PIPPA L 466.0 BRONCHITIS, ACUTE 11/16/2012 MADL 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 DEPARTMENT, PIPPA L 786.07 WHEEZING 11/16/2012 MADL 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 DEPARTMENT, PIPPA L 786.2 COUGH 11/16/2012 WISEMAN DO, MICKEY K 466.0 BRONCHITIS, ACUTE 11/16/2012 WISEMAN DO, MICKEY K 786.07 WHEEZING 11/16/2012 WISEMAN DO, MICKEY K 786.2 COUGH 11/16/2012 WISEMAN DO, MICKEY K 466.0 BRONCHITIS, ACUTE 11/16/2012 WISEMAN DO, MICKEY K 786.07 WHEEZING 11/16/2012 WISEMAN DO, MICKEY K 786.2 COUGH 11/16/2012 RAFAEL 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 DEPARTMENT, NICKOLAS R 466.0 BRONCHITIS, ACUTE 11/16/2012 RAFAEL 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 DEPARTMENT, NICKOLAS R 786.07 WHEEZING 11/16/2012 RAFAEL 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 DEPARTMENT, NICKOLAS R 786.2 COUGH 11/16/2012 WISEMAN DO, MICKEY K 466.0 BRONCHITIS, ACUTE 11/16/2012 WISEMAN DO, MICKEY K 786.07 WHEEZING 11/16/2012 WISEMAN DO, MICKEY K 786.2 COUGH 11/16/2012 MADL 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 DEPARTMENT, PIPPA L 466.0 BRONCHITIS, ACUTE 11/16/2012 MADL 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 DEPARTMENT, PIPPA L 786.07 WHEEZING 11/16/2012 MADL 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 DEPARTMENT, PIPPA L 786.2 COUGH 11/16/2012 MADL 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 DEPARTMENT, PIPPA L 466.0 BRONCHITIS, ACUTE 11/16/2012 MADL 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 DEPARTMENT, PIPPA L 786.07 WHEEZING 11/16/2012 MADL 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 DEPARTMENT, PIPPA L 786.2 COUGH 03/14/2013 380.4 CERUMEN IMPACTION 03/14/2013 477.9 ALLERGIC RHINITIS 03/14/2013 380.4 CERUMEN IMPACTION 03/14/2013 477.9 ALLERGIC RHINITIS 03/14/2013 380.4 CERUMEN IMPACTION 03/14/2013 477.9 ALLERGIC RHINITIS 03/14/2013 380.4 CERUMEN IMPACTION 03/14/2013 477.9 ALLERGIC RHINITIS 03/14/2013 380.4 CERUMEN IMPACTION 03/14/2013 477.9 ALLERGIC RHINITIS 03/14/2013 DIO CHI MD 380.4 CERUMEN IMPACTION 03/14/2013 DIO CHI MD 477.9 ALLERGIC RHINITIS 03/14/2013 WISEMAN DO, MICKEY K 380.4 CERUMEN IMPACTION 03/14/2013 WISEMAN DO MICKEY K 477.9 ALLERGIC RHINITIS 03/14/2013 DIO CHI MD 380.4 CERUMEN IMPACTION 03/14/2013 DIO CHI MD 477.9 ALLERGIC RHINITIS 03/14/2013 EARLY 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 DEPARTMENT, JAY R 380.4 CERUMEN IMPACTION 03/14/2013 EARLY 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 DEPARTMENT, JAY R 477.9 ALLERGIC RHINITIS 03/14/2013 WISEMAN DO, MICKEY K 380.4 CERUMEN IMPACTION 03/14/2013 WISEMAN DO, MICKEY K 477.9 ALLERGIC RHINITIS 03/14/2013 ALON WHITE, DIO Castro 380.4 CERUMEN IMPACTION 03/14/2013 ALON WHITE, DIO Castro 477.9 ALLERGIC RHINITIS 03/14/2013 WISEMAN DO, MICKEY K 380.4 CERUMEN IMPACTION 03/14/2013 WISEMAN DO, MICKEY K 477.9 ALLERGIC RHINITIS 03/14/2013 WISEMAN DO, MICKEY K 380.4 CERUMEN IMPACTION 03/14/2013 WISEMAN DO, MICKEY K 477.9 ALLERGIC RHINITIS 03/14/2013 DERRICK WHITE, JORDEN 380.4 CERUMEN IMPACTION 03/14/2013 DERRICK WHITE, JORDEN 477.9 ALLERGIC RHINITIS 03/14/2013 CARMELLA 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 DEPARTMENT, INOCENTE S 380.4 CERUMEN IMPACTION 03/14/2013 CARMELLA 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 DEPARTMENT, INOCENTE S 477.9 ALLERGIC RHINITIS 03/14/2013 WISEMAN DO, MICKEY K 380.4 CERUMEN IMPACTION 03/14/2013 WISEMAN DO, MICKEY K 477.9 ALLERGIC RHINITIS 03/14/2013 JORDEN MEZA MD 380.4 CERUMEN IMPACTION 03/14/2013 JORDEN MEZA MD7.9 ALLERGIC RHINITIS 03/14/2013 ALON WHITE, DIO Castro 380.4 CERUMEN IMPACTION 03/14/2013 ALON WHITE, DIO Castro 477.9 ALLERGIC RHINITIS 03/14/2013 ALON WHITE, DIO Castro 380.4 CERUMEN IMPACTION 03/14/2013 ALON WHITE, DIO Castro 477.9 ALLERGIC RHINITIS 03/14/2013 ALON WHITE, DIO Castro 380.4 CERUMEN IMPACTION 03/14/2013 ALON WHITE, DIO Castro 477.9 ALLERGIC RHINITIS 03/14/2013 ALON WHITE, DIO Castro 380.4 CERUMEN IMPACTION 03/14/2013 ALON WHITE, DIO Castro 477.9 ALLERGIC RHINITIS 03/14/2013 WISEMAN DO, MICKEY K 380.4 CERUMEN IMPACTION 03/14/2013 WISEMAN DO, MICKEY K 477.9 ALLERGIC RHINITIS 03/14/2013 WISEMAN DO, MICKEY K 380.4 CERUMEN IMPACTION 03/14/2013 WISEMAN DO, MICKEY K 477.9 ALLERGIC RHINITIS 03/14/2013 WISEMAN DO, MICKEY K 380.4 CERUMEN IMPACTION 03/14/2013 WISEMAN DO, MICKEY K 477.9 ALLERGIC RHINITIS 03/14/2013 WILVER 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 DEPARTMENT, AAKASH T 380.4 CERUMEN IMPACTION 03/14/2013 WILVER 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 DEPARTMENT, AAKASH T 477.9 ALLERGIC RHINITIS 03/14/2013 WILVER 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 DEPARTMENT, AAKASH T 380.4 CERUMEN IMPACTION 03/14/2013 WILVER 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 DEPARTMENT, AAKASH T 477.9 ALLERGIC RHINITIS 03/14/2013 MADL 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 DEPARTMENT, PIPPA L 380.4 CERUMEN IMPACTION 03/14/2013 MADL 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 DEPARTMENT, PIPPA L 477.9 ALLERGIC RHINITIS 03/14/2013 WISEMAN DO, MICKEY K 380.4 CERUMEN IMPACTION 03/14/2013 WISEMAN DO, MICKEY K 477.9 ALLERGIC RHINITIS 03/14/2013 WISEMAN DO, MICKEY K 380.4 CERUMEN IMPACTION 03/14/2013 WISEMAN DO, MICKEY K 477.9 ALLERGIC RHINITIS 03/14/2013 RAFAEL 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 DEPARTMENT, NICKOLAS R 380.4 CERUMEN IMPACTION 03/14/2013 RAFAEL 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 DEPARTMENT, NICKOLAS R 477.9 ALLERGIC RHINITIS 03/14/2013 IWSEMAN DO, MICKEY K 380.4 CERUMEN IMPACTION 03/14/2013 WISEMAN DO, MICKEY K 477.9 ALLERGIC RHINITIS 03/14/2013 MADL 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 DEPARTMENT, PIPPA L 380.4 CERUMEN IMPACTION 03/14/2013 MADL 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 DEPARTMENT, PIPPA L 477.9 ALLERGIC RHINITIS 03/14/2013 MADL 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 DEPARTMENT, PIPPA L 380.4 CERUMEN IMPACTION 03/14/2013 MADL 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 DEPARTMENT, PIPPA L 477.9 ALLERGIC RHINITIS 04/25/2013 327.23 SLEEP APNEA OBSTRUCTIVE 04/25/2013 327.23 SLEEP APNEA OBSTRUCTIVE 04/25/2013 ALON WHITE, DIO M 327.23 SLEEP APNEA OBSTRUCTIVE 04/25/2013 WISEMAN DO MICKEY K 327.23 SLEEP APNEA OBSTRUCTIVE 04/25/2013 DIO CHI MD 327.23 SLEEP APNEA OBSTRUCTIVE 04/25/2013 JAY EARLY APRN 327.23 SLEEP APNEA OBSTRUCTIVE 04/25/2013 WISEMAN DO MICKEY K 327.23 SLEEP APNEA OBSTRUCTIVE 04/25/2013 DIO CHI MD 327.23 SLEEP APNEA OBSTRUCTIVE 04/25/2013 WISEMAN DO MICKEY K 327.23 SLEEP APNEA OBSTRUCTIVE 04/25/2013 WISEMAN DO MICKEY K 327.23 SLEEP APNEA OBSTRUCTIVE 04/25/2013 JORDEN MEZA MD 327.23 SLEEP APNEA OBSTRUCTIVE 04/25/2013 INOCENTE WEIR APRN 327.23 SLEEP APNEA OBSTRUCTIVE 04/25/2013 WISEMAN DO MICKEY K 327.23 SLEEP APNEA OBSTRUCTIVE 04/25/2013 JORDEN MEZA MD 327.23 SLEEP APNEA OBSTRUCTIVE 04/25/2013 DIO CHI MD 327.23 SLEEP APNEA OBSTRUCTIVE 04/25/2013 DIO CHI MD 327.23 SLEEP APNEA OBSTRUCTIVE 04/25/2013 DIO CHI MD 327.23 SLEEP APNEA OBSTRUCTIVE 04/25/2013 DIO CHI MD 327.23 SLEEP APNEA OBSTRUCTIVE 04/25/2013 WISEMAN DO MICKEY K 327.23 SLEEP APNEA OBSTRUCTIVE 04/25/2013 WISEMAN DO MICKEY K 327.23 SLEEP APNEA OBSTRUCTIVE 04/25/2013 WISEMAN DO MICKEY K 327.23 SLEEP APNEA OBSTRUCTIVE 04/25/2013 AAKASH PETTIT APRN T 327.23 SLEEP APNEA OBSTRUCTIVE 04/25/2013 AAKASH PETTIT APRN T 327.23 SLEEP APNEA OBSTRUCTIVE 04/25/2013 [place] DIMAS APRNA L 327.23 SLEEP APNEA OBSTRUCTIVE 04/25/2013 WISEMAN DO MICKEY K 327.23 SLEEP APNEA OBSTRUCTIVE 04/25/2013 WISEMAN DO MICKEY K 327.23 SLEEP APNEA OBSTRUCTIVE 04/25/2013 NICKOLAS HALL APRN 327.23 SLEEP APNEA OBSTRUCTIVE 04/25/2013 WISEMAN DO MICKEY K 327.23 SLEEP APNEA OBSTRUCTIVE 04/25/2013 JUDIE 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 DEPARTMENTMONTANA CastrejonA L 327.23 SLEEP APNEA OBSTRUCTIVE 04/25/2013 [place] DIMAS APRNA L 327.23 SLEEP APNEA OBSTRUCTIVE 05/21/2013 DIO CHI MD 333.94 RESTLESS LEGS SYNDROME (RLS) 05/21/2013 DIO CHI MD 682.2 CELLULITIS AND ABSCESS OF TRUNK 05/21/2013 MICKEY WISEMAN DO 333.94 RESTLESS LEGS SYNDROME (RLS) 05/21/2013 MICKEY WISEMAN DO 682.2 CELLULITIS AND ABSCESS OF TRUNK 05/21/2013 DIO CHI MD 333.94 RESTLESS LEGS SYNDROME (RLS) 05/21/2013 DIO CHI MD 682.2 CELLULITIS AND ABSCESS OF TRUNK 05/21/2013 JAY EARLY APRN 333.94 RESTLESS LEGS SYNDROME (RLS) 05/21/2013 JAY EARLY APRN 682.2 CELLULITIS AND ABSCESS OF TRUNK 05/21/2013 MICKEY WISEMAN DO K 333.94 RESTLESS LEGS SYNDROME (RLS) 05/21/2013 MICKEY WISEMAN DO 682.2 CELLULITIS AND ABSCESS OF TRUNK 05/21/2013 DIO CHI MD 333.94 RESTLESS LEGS SYNDROME (RLS) 05/21/2013 DIO CHI MD 682.2 CELLULITIS AND ABSCESS OF TRUNK 05/21/2013 MICKEY WISEMAN DO K 333.94 RESTLESS LEGS SYNDROME (RLS) 05/21/2013 MICKEY WISEMAN DO 682.2 CELLULITIS AND ABSCESS OF TRUNK 05/21/2013 LUX WISEMAN DOA K 333.94 RESTLESS LEGS SYNDROME (RLS) 05/21/2013 MICKEY WISEMAN DO K 682.2 CELLULITIS AND ABSCESS OF TRUNK 05/21/2013 JORDEN MEZA MD 333.94 RESTLESS LEGS SYNDROME (RLS) 05/21/2013 JORDEN MEZA MD 682.2 CELLULITIS AND ABSCESS OF TRUNK 05/21/2013 INOCENTE WEIR APRN 333.94 RESTLESS LEGS SYNDROME (RLS) 05/21/2013 INOCENTE WEIR APRN 682.2 CELLULITIS AND ABSCESS OF TRUNK 05/21/2013 MICKEY WISEMAN DO K 333.94 RESTLESS LEGS SYNDROME (RLS) 05/21/2013 MICKEY WISEMAN DO 682.2 CELLULITIS AND ABSCESS OF TRUNK 05/21/2013 JORDEN MEZA MD 333.94 RESTLESS LEGS SYNDROME (RLS) 05/21/2013 JORDEN MEZA MD 682.2 CELLULITIS AND ABSCESS OF TRUNK 05/21/2013 DIO CHI MD 333.94 RESTLESS LEGS SYNDROME (RLS) 05/21/2013 DIO CHI MD 682.2 CELLULITIS AND ABSCESS OF TRUNK 05/21/2013 DIO CHI MD 333.94 RESTLESS LEGS SYNDROME (RLS) 05/21/2013 DIO CHI MD 682.2 CELLULITIS AND ABSCESS OF TRUNK 05/21/2013 DIO CHI MD 333.94 RESTLESS LEGS SYNDROME (RLS) 05/21/2013 DIO CHI MD 682.2 CELLULITIS AND ABSCESS OF TRUNK 05/21/2013 DIO CHI MD 333.94 RESTLESS LEGS SYNDROME (RLS) 05/21/2013 DIO CHI MD 682.2 CELLULITIS AND ABSCESS OF TRUNK 05/21/2013 LUX WISEMAN DOA K 333.94 RESTLESS LEGS SYNDROME (RLS) 05/21/2013 LUX WISEMAN DOA [place]on 682.2 CELLULITIS AND ABSCESS OF TRUNK 05/21/2013 BOWEN SEXTON MICKEY K 333.94 RESTLESS LEGS SYNDROME (RLS) 05/21/2013 LUX WISEMAN DOA K 682.2 CELLULITIS AND ABSCESS OF TRUNK 05/21/2013 BOWEN SEXTON MICKEY K 333.94 RESTLESS LEGS SYNDROME (RLS) 05/21/2013 LUX WISEMAN DOA K 682.2 CELLULITIS AND ABSCESS OF TRUNK 05/21/2013 AAKASH PETTIT APRN 333.94 RESTLESS LEGS SYNDROME (RLS) 05/21/2013 AAKASH PETTIT APRN 682.2 CELLULITIS AND ABSCESS OF TRUNK 05/21/2013 AAKASH PETTIT APRN 333.94 RESTLESS LEGS SYNDROME (RLS) 05/21/2013 AAKASH PETTIT APRN 682.2 CELLULITIS AND ABSCESS OF TRUNK 05/21/2013 PIPPA DIMAS APRN 333.94 RESTLESS LEGS SYNDROME (RLS) 05/21/2013 PIPPA DIMAS APRN 682.2 CELLULITIS AND ABSCESS OF TRUNK 05/21/2013 LUX WISEMAN DOA K 333.94 RESTLESS LEGS SYNDROME (RLS) 05/21/2013 WISEMAN DO, MICKEY K 682.2 CELLULITIS AND ABSCESS OF TRUNK 05/21/2013 BOWEN SEXTON MICKEY K 333.94 RESTLESS LEGS SYNDROME (RLS) 05/21/2013 WISEMAN DO MICKEY K 682.2 CELLULITIS AND ABSCESS OF TRUNK 05/21/2013 RAFAEL 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 DEPARTMENT, NICKOLAS R 333.94 RESTLESS LEGS SYNDROME (RLS) 05/21/2013 RAFAEL 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 DEPARTMENT, NICKOLAS R 682.2 CELLULITIS AND ABSCESS OF TRUNK 05/21/2013 WISEMAN DO MICKEY K 333.94 RESTLESS LEGS SYNDROME (RLS) 05/21/2013 WISEMAN DO, MICKEY K 682.2 CELLULITIS AND ABSCESS OF TRUNK 05/21/2013 MADL 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 DEPARTMENT, PIPPA L 333.94 RESTLESS LEGS SYNDROME (RLS) 05/21/2013 MADL 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 DEPARTMENT, PIPPA L 682.2 CELLULITIS AND ABSCESS OF TRUNK 05/21/2013 MADL 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 DEPARTMENT, PIPPA L 333.94 RESTLESS LEGS SYNDROME (RLS) 05/21/2013 MADL 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 DEPARTMENT, PIPPA L 682.2 CELLULITIS AND ABSCESS OF TRUNK 08/22/2013 MICKEY WISEMAN DO K 717.7 CHONDROMALACIA OF PATELLA 08/22/2013 DIO CHI MD 717.7 CHONDROMALACIA OF [place]LL[place] 08/22/2013 JAY EARLY APRN 717.7 CHONDROMALACIA OF [place] 08/22/2013 MICKEY WISEMAN DO K 717.7 CHONDROMALACIA OF [place] 08/22/2013 DIO CHI MD 717.7 CHONDROMALACIA OF [place] 08/22/2013 MICKEY WISEMAN DO K 717.7 CHONDROMALACIA OF [place] 08/22/2013 MICKEY WISEMAN DO K 717.7 CHONDROMALACIA OF [place] 08/22/2013 JORDEN MEZA MD7.7 CHONDROMALACIA OF [place] 08/22/2013 INOCENTE WEIR APRN 717.7 CHONDROMALACIA OF [place] 08/22/2013 MICKEY WISEMAN DO K 717.7 CHONDROMALACIA OF [place] 08/22/2013 JORDEN MEZA MD7.7 CHONDROMALACIA OF [place] 08/22/2013 DIO CHI MD 717.7 CHONDROMALACIA OF [place] 08/22/2013 ALON MD, DIO M 717.7 CHONDROMALACIA OF [place] 08/22/2013 DIO CHI MD 717.7 CHONDROMALACIA OF [place]LL[place] 08/22/2013 DIO CIH MD 717.7 CHONDROMALACIA OF [place] 08/22/2013 WISEMAN MICKEY SEXTON K 717.7 CHONDROMALACIA OF [place] 08/22/2013 WISEMAN DO, MICKEY K 717.7 CHONDROMALACIA OF [place] 08/22/2013 WISEMAN DO, MICKEY K 717.7 CHONDROMALACIA OF [place] 08/22/2013 AAKASH PETTIT APRN T 717.7 CHONDROMALACIA OF [place] 08/22/2013 AAKASH PETTIT APRN T 717.7 CHONDROMALACIA OF [place]LL[place] 08/22/2013 PIPPA DIMAS APRN L 717.7 CHONDROMALACIA OF [place]LL[place] 08/22/2013 WISEMAN DO MICKEY K 717.7 CHONDROMALACIA OF [place] 08/22/2013 WISEMAN DO MICKEY K 717.7 CHONDROMALACIA OF [place] 08/22/2013 NICKOLAS HALL APRN R 717.7 CHONDROMALACIA OF [place] 08/22/2013 BOWEN DO MICKEY K 717.7 CHONDROMALACIA OF [place] 08/22/2013 [place] DIM[place] APRNA L 717.7 CHONDROMALACIA OF [place]LL[place] 08/22/2013 [place] DIMAS APRNA L 717.7 CHONDROMALACIA OF [place]LL[place] 09/04/2013 DIO CHI MD 782.0 tingling (paresthesia) 09/04/2013 JAY EARLY APRN 782.0 tingling (paresthesia) 09/04/2013 LUX WISEMAN DOA K 782.0 tingling (paresthesia) 09/04/2013 DIO CHI MD 782.0 tingling (paresthesia) 09/04/2013 LUX WISEMAN DOA K 782.0 tingling (paresthesia) 09/04/2013 BOWEN SEXTON MICKEY K 782.0 tingling (paresthesia) 09/04/2013 JORDEN MEZA MD 782.0 TINGLING (PARESTHESIA) 09/04/2013 INOCENTE WEIR APRN 782.0 TINGLING (PARESTHESIA) 09/04/2013 WISEMAN DO, MICKEY K 782.0 TINGLING (PARESTHESIA) 09/04/2013 JORDEN MEZA MD 782.0 TINGLING (PARESTHESIA) 09/04/2013 DIO CHI MD 782.0 TINGLING (PARESTHESIA) 09/04/2013 DIO CHI MD 782.0 TINGLING (PARESTHESIA) 09/04/2013 DIO CHI MD 782.0 TINGLING (PARESTHESIA) 09/04/2013 DIO CHI MD 782.0 TINGLING (PARESTHESIA) 09/04/2013 WISEMAN DO, MICKEY K 782.0 TINGLING (PARESTHESIA) 09/04/2013 WISEMAN DO, MICKEY K 782.0 TINGLING (PARESTHESIA) 09/04/2013 WISEMAN DO, MICKEY K 782.0 TINGLING (PARESTHESIA) 09/04/2013 AAKASH PETTIT APRN T 782.0 TINGLING (PARESTHESIA) 09/04/2013 AAKASH PETTIT APRN T 782.0 TINGLING (PARESTHESIA) 09/04/2013 MADDIEL 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 DEPARTMENT, PIPPA L 782.0 TINGLING (PARESTHESIA) 09/04/2013 WISEMAN DO, MICKEY K 782.0 TINGLING (PARESTHESIA) 09/04/2013 WISEMAN DO, MICKEY K 782.0 TINGLING (PARESTHESIA) 09/04/2013 RAFAEL PINTO NICKOLAS R 782.0 TINGLING (PARESTHESIA) 09/04/2013 WISEMAN DO, MICKEY K 782.0 TINGLING (PARESTHESIA) 09/04/2013 MADL 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 DEPARTMENT, PIPPA L 782.0 TINGLING (PARESTHESIA) 09/04/2013 MADL 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 DEPARTMENT, PIPPA L 782.0 TINGLING (PARESTHESIA) 10/02/2013 JAY EARLY APRN R 919.4 INSECT BITE NONVENOMOUS OF OTHER MULTIPLE AND UNSPECIFIED SITES WITHOUT INFECTION 10/02/2013 WISEMAN DO, MICKEY K 919.4 INSECT BITE NONVENOMOUS OF OTHER MULTIPLE AND UNSPECIFIED SITES WITHOUT INFECTION 10/02/2013 DIO CHI MD 919.4 INSECT BITE NONVENOMOUS OF OTHER MULTIPLE AND UNSPECIFIED SITES WITHOUT INFECTION 10/02/2013 WISEMAN DO, MICKEY K 919.4 INSECT BITE NONVENOMOUS OF OTHER MULTIPLE AND UNSPECIFIED SITES WITHOUT INFECTION 10/02/2013 WISEMAN DO, MICKEY K 919.4 INSECT BITE NONVENOMOUS OF OTHER MULTIPLE AND UNSPECIFIED SITES WITHOUT INFECTION 10/02/2013 JORDEN MEZA MD 919.4 INSECT BITE NONVENOMOUS OF OTHER MULTIPLE AND UNSPECIFIED SITES WITHOUT INFECTION 10/02/2013 INOCENTE WEIR APRN 919.4 INSECT BITE NONVENOMOUS OF OTHER MULTIPLE AND UNSPECIFIED SITES WITHOUT INFECTION 10/02/2013 WISEMAN DO, MICKEY K 919.4 INSECT BITE NONVENOMOUS OF OTHER MULTIPLE AND UNSPECIFIED SITES WITHOUT INFECTION 10/02/2013 JORDEN MEZA MD 919.4 INSECT BITE NONVENOMOUS OF OTHER MULTIPLE AND UNSPECIFIED SITES WITHOUT INFECTION 10/02/2013 DIO CHI MD 919.4 INSECT BITE NONVENOMOUS OF OTHER MULTIPLE AND UNSPECIFIED SITES WITHOUT INFECTION 10/02/2013 DIO CHI MD 919.4 INSECT BITE NONVENOMOUS OF OTHER MULTIPLE AND UNSPECIFIED SITES WITHOUT INFECTION 10/02/2013 DIO CHI MD 919.4 INSECT BITE NONVENOMOUS OF OTHER MULTIPLE AND UNSPECIFIED SITES WITHOUT INFECTION 10/02/2013 DIO CHI MD 919.4 INSECT BITE NONVENOMOUS OF OTHER MULTIPLE AND UNSPECIFIED SITES WITHOUT INFECTION 10/02/2013 WISEMAN DO, MICKEY K 919.4 INSECT BITE NONVENOMOUS OF OTHER MULTIPLE AND UNSPECIFIED SITES WITHOUT INFECTION 10/02/2013 WISEMAN DO, MICKEY K 919.4 INSECT BITE NONVENOMOUS OF OTHER MULTIPLE AND UNSPECIFIED SITES WITHOUT INFECTION 10/02/2013 WISEMAN DO, MICKEY K 919.4 INSECT BITE NONVENOMOUS OF OTHER MULTIPLE AND UNSPECIFIED SITES WITHOUT INFECTION 10/02/2013 AAKASH PETTIT APRN 919.4 INSECT BITE NONVENOMOUS OF OTHER MULTIPLE AND UNSPECIFIED SITES WITHOUT INFECTION 10/02/2013 AAKASH PETTIT APRN 919.4 INSECT BITE NONVENOMOUS OF OTHER MULTIPLE AND UNSPECIFIED SITES WITHOUT INFECTION 10/02/2013 PIPPA DIMAS APRN 919.4 INSECT BITE NONVENOMOUS OF OTHER MULTIPLE AND UNSPECIFIED SITES WITHOUT INFECTION 10/02/2013 WISEMAN DO, MICKEY K 919.4 INSECT BITE NONVENOMOUS OF OTHER MULTIPLE AND UNSPECIFIED SITES WITHOUT INFECTION 10/02/2013 WISEMAN DO, MICKEY K 919.4 INSECT BITE NONVENOMOUS OF OTHER MULTIPLE AND UNSPECIFIED SITES WITHOUT INFECTION 10/02/2013 RAFAEL 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 DEPARTMENTFLORENCIONICKOLAS R 919.4 INSECT BITE NONVENOMOUS OF OTHER MULTIPLE AND UNSPECIFIED SITES WITHOUT INFECTION 10/02/2013 WISEMAN DO, MICKEY K 919.4 INSECT BITE NONVENOMOUS OF OTHER MULTIPLE AND UNSPECIFIED SITES WITHOUT INFECTION 10/02/2013 MADL 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 DEPARTMENT, PIPPA L 919.4 INSECT BITE NONVENOMOUS OF OTHER MULTIPLE AND UNSPECIFIED SITES WITHOUT INFECTION 10/02/2013 MADL 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 DEPARTMENT, PIPPA L 919.4 INSECT BITE NONVENOMOUS OF OTHER MULTIPLE AND UNSPECIFIED SITES WITHOUT INFECTION 10/16/2013 DIO CHI MD 300.00 ANXIETY UNSPEC 10/16/2013 DIO CHI MD 682.6 CELLULITIS OF THE LEG 10/16/2013 WISEMAN DO, MICKEY K 300.00 ANXIETY UNSPEC 10/16/2013 WISEMAN DO, MICKEY K 682.6 CELLULITIS OF THE LEG 10/16/2013 WISEMAN DO, MICKEY K 300.00 ANXIETY UNSPEC 10/16/2013 WISEMAN DO, MICKEY K 682.6 CELLULITIS OF THE LEG 10/16/2013 JORDEN MEZA MD 300.00 ANXIETY UNSPEC 10/16/2013 JORDNE MEZA MD 682.6 CELLULITIS OF THE LEG 10/16/2013 INOCENTE WERI APRN S 300.00 ANXIETY UNSPEC 10/16/2013 INOCENTE WEIR APRN S 682.6 CELLULITIS OF THE LEG 10/16/2013 WISEMAN DO, MICKEY K 300.00 ANXIETY UNSPEC 10/16/2013 WISEMAN DO, MICKEY K 682.6 CELLULITIS OF THE LEG 10/16/2013 JORDEN MEZA MD 300.00 ANXIETY UNSPEC 10/16/2013 JORDEN MEZA MD 682.6 CELLULITIS OF THE LEG 10/16/2013 DIO CHI MD 300.00 anxiety 10/16/2013 DIO CHI MD 682.6 CELLULITIS OF THE LEG 10/16/2013 DIO CHI MD 300.00 anxiety 10/16/2013 DIO CHI MD 682.6 CELLULITIS OF THE LEG 10/16/2013 ALON WHITE, DIO M 300.00 anxiety 10/16/2013 DIO CHI MD 682.6 CELLULITIS OF THE LEG 10/16/2013 ALON WHITE, DIO M 300.00 anxiety 10/16/2013 DIO CHI MD 682.6 CELLULITIS OF THE LEG 10/16/2013 WISEMAN DO, MICKEY K 300.00 anxiety 10/16/2013 WISEMAN DO, MICKEY K 682.6 CELLULITIS OF THE LEG 10/16/2013 WISEMAN DO, MICKEY K 300.00 anxiety 10/16/2013 WISEMAN DO, MICKEY K 682.6 CELLULITIS OF THE LEG 10/16/2013 WISEMAN DO, MICKEY K 300.00 anxiety 10/16/2013 WISEMAN DO, MICKEY K 682.6 CELLULITIS OF THE LEG 10/16/2013 WILVER PINTO AAKASH T 300.00 anxiety 10/16/2013 WILVER [place] AAKASH T 682.6 CELLULITIS OF THE LEG 10/16/2013 WILVER [place] AAKASH T 300.00 anxiety 10/16/2013 WILVER [place]TO AAKASH T 682.6 CELLULITIS OF THE LEG 10/16/2013 MADDIEL 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 DEPARTMENT, PIPPA L 300.00 anxiety 10/16/2013 MADL 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 DEPARTMENT, PIPPA L 682.6 CELLULITIS OF THE LEG 10/16/2013 WISEMAN DO, MICKEY K 300.00 anxiety 10/16/2013 WISEMAN DO, MICKEY K 682.6 CELLULITIS OF THE LEG 10/16/2013 WISEMAN DO, MICKEY K 300.00 anxiety 10/16/2013 WISEMAN DO, MICKEY K 682.6 CELLULITIS OF THE LEG 10/16/2013 RAFAEL MAZAN NICKOLAS R 300.00 anxiety 10/16/2013 RAFAEL MILLIE, NICKOLAS R 682.6 CELLULITIS OF THE LEG 10/16/2013 WISEMAN DO, MICKEY K 300.00 anxiety 10/16/2013 WISEMAN DO, MICKEY K 682.6 CELLULITIS OF THE LEG 10/16/2013 MADL 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 DEPARTMENT, PIPPA L 300.00 anxiety 10/16/2013 MADL 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 DEPARTMENT, PIPPA L 682.6 CELLULITIS OF THE LEG 10/16/2013 JUDIE 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 DEPARTMENT, PIPPA L 300.00 anxiety 10/16/2013 JUDIE 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 DEPARTMENT, PIPPA L 682.6 CELLULITIS OF THE LEG 11/07/2013 JORDEN MEZA MD 459.81 VENOUS (PERIPHERAL) INSUFFICIENCY UNSPECIFIED 11/07/2013 INOCENTE WEIR APRN S 459.81 VENOUS (PERIPHERAL) INSUFFICIENCY UNSPECIFIED 11/07/2013 WISEMAN DO MICKEY K 459.81 VENOUS (PERIPHERAL) INSUFFICIENCY UNSPECIFIED 11/07/2013 JORDEN MEZA MD 459.81 VENOUS (PERIPHERAL) INSUFFICIENCY UNSPECIFIED 11/07/2013 DIO CHI MD 459.81 VENOUS (PERIPHERAL) INSUFFICIENCY UNSPECIFIED 11/07/2013 DIO CHI MD 459.81 VENOUS (PERIPHERAL) INSUFFICIENCY UNSPECIFIED 11/07/2013 DIO CHI MD 459.81 VENOUS (PERIPHERAL) INSUFFICIENCY UNSPECIFIED 11/07/2013 DIO CHI MD 459.81 VENOUS (PERIPHERAL) INSUFFICIENCY UNSPECIFIED 11/07/2013 WISEMAN DO, MICKEY K 459.81 VENOUS (PERIPHERAL) INSUFFICIENCY UNSPECIFIED 11/07/2013 WISEMAN DO, MICKEY K 459.81 VENOUS (PERIPHERAL) INSUFFICIENCY UNSPECIFIED 11/07/2013 WISEMAN DO, MICKEY K 459.81 VENOUS (PERIPHERAL) INSUFFICIENCY UNSPECIFIED 11/07/2013 AAKASH PETTIT APRN 459.81 VENOUS (PERIPHERAL) INSUFFICIENCY UNSPECIFIED 11/07/2013 AAKASH PETTIT APRN 459.81 VENOUS (PERIPHERAL) INSUFFICIENCY UNSPECIFIED 11/07/2013 JUDIE PINTO, PIPPA L 459.81 VENOUS (PERIPHERAL) INSUFFICIENCY UNSPECIFIED 11/07/2013 WISEMAN DO, MICKEY K 459.81 VENOUS (PERIPHERAL) INSUFFICIENCY UNSPECIFIED 11/07/2013 WISEMAN DO, MICKEY K 459.81 VENOUS (PERIPHERAL) INSUFFICIENCY UNSPECIFIED 11/07/2013 NICKOLAS HALL APRN 459.81 VENOUS (PERIPHERAL) INSUFFICIENCY UNSPECIFIED 11/07/2013 WISEMAN DO, MICKEY K 459.81 VENOUS (PERIPHERAL) INSUFFICIENCY UNSPECIFIED 11/07/2013 JUDIE 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 DEPARTMENT, PIPPA L 459.81 VENOUS (PERIPHERAL) INSUFFICIENCY UNSPECIFIED 11/07/2013 MADL 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 DEPARTMENT, PIPPA L 459.81 VENOUS (PERIPHERAL) INSUFFICIENCY UNSPECIFIED 12/04/2013 SVETA PORTER MD Ot 401.9 HYPERTENSION NOS 12/04/2013 SVETA PORTER MD Ot 414.01 CORONARY ATHEROSCLEROSIS OF [place] CORON 12/04/2013 SVETA PORTER MD Ot 717.40 DERANG LAT MENISCUS NOS 12/04/2013 SVETA PORTER MD Ot V57.1 PHYSICAL THERAPY NEC 12/04/2013 SVETA PORTER MD Ot V58.69 OTH MED,LT,CURRENT USE 01/08/2014 DIO CHI MD 782.3 EDEMA 01/08/2014 DIO CHI MD 782.3 EDEMA 01/08/2014 DIO CHI MD 782.3 EDEMA 01/08/2014 DIO CHI MD 782.3 EDEMA 01/08/2014 WISEMAN DO, MICKEY K 782.3 EDEMA 01/08/2014 WISEMAN DO, MICKEY K 782.3 EDEMA 01/08/2014 WISEMAN DO, MICKEY K 782.3 EDEMA 01/08/2014 W[place] AAKASH T 782.3 EDEMA 01/08/2014 WILVER [place] AAKASH T 782.3 EDEMA 01/08/2014 JUDIE 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 DEPARTMENT, PIPPA L 782.3 EDEMA 01/08/2014 WISEMNA DO, MICKEY K 782.3 EDEMA 01/08/2014 WISEMAN DO, MICKEY K 782.3 EDEMA 01/08/2014 RAFAEL PINTO NICKOLAS R 782.3 EDEMA 01/08/2014 WISEMAN DO, MICKEY K 782.3 EDEMA 01/08/2014 MADArjun 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 DEPARTMENT, PIPAP L 782.3 EDEMA 01/08/2014 MADL 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 DEPARTMENT, PIPPA L 782.3 EDEMA 01/22/2014 DIO CHI MD 682.9 CELLULITIS OF EXTREMITY 01/22/2014 DIO CHI MD 786.05 shortness of breath 01/22/2014 DIO CHI MD 682.9 CELLULITIS OF EXTREMITY 01/22/2014 DIO CHI MD 786.05 shortness of breath 01/22/2014 MICKEY WISEMAN DO K 682.9 CELLULITIS OF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 MELVINA MCNAIR MD, Ot I25.5 ISCHEMIC CARDIOMYOPATHY 05/18/2017 MELVINA MCNAIR MD, Ot I44.7 LEFT BUNDLE-BRANCH BLOCK, UNSPECIFIED 05/18/2017 MELVINA MCNAIR MD, Ot I50.22 CHRONIC SYSTOLIC (CONGESTIVE) HEART FAIL 05/18/2017 MELVINA MCNAIR MD, Ot K21.9 GASTRO-ESOPHAGEAL REFLUX DISEASE WITHOUT 05/18/2017 MELVINA MCNAIR MD, Ot R07.89 OTHER CHEST PAIN 05/18/2017 MELVINA MCNAIR MD, Ot R73.9 HYPERGLYCEMIA, UNSPECIFIED 05/18/2017 MELVINA MCNAIR MD, Ot Z68.45 BODY MASS INDEX (BMI) 70 OR GREATER, ALFREDO 05/18/2017 MELVINA MCNAIR MD, Ot Z79.82 [facility] (CURRENT) USE OF ASPIRIN 05/18/2017 MELVINA MCNAIR MD, Ot Z79.899 OTHER [facility] (CURRENT) DRUG THERAPY 05/18/2017 MELVINA MCNAIR MD, Ot Z95.5 PRESENCE OF CORONARY ANGIOPLASTY IMPLANT 07/25/2017 JANNY TROY MD Ot 397.0 TRICUSPID VALVE DISEASE 07/25/2017 JANNY TROY MD Ot 401.9 HYPERTENSION NOS 07/25/2017 JANNY TROY MD Ot 424.0 MITRAL VALVE DISORDER 07/25/2017 JANNY TROY MD Ot 786.09 RESPIRATORY ABNORM NEC 07/25/2017 JANNY TROY MD Ot 401.9 HYPERTENSION NOS 07/25/2017 JANNY TROY MD Ot 786.09 RESPIRATORY ABNORM NEC 07/25/2017 SVETA PORTER MD, Ot 717.7 CHONDROMALACIA PATELLAE 07/25/2017 SVETA PORTER MD, Ot V72.63 PRE-PROCEDURAL LABORATORY EXAMINATION 07/25/2017 SVETA PORTER MD, Ot V74.8 SCREEN-BACTERIAL DIS NEC 07/25/2017 PIPPA DIMAS C[employer] FILLING 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 Ot 786.05 SHORTNESS OF BREATH 07/25/2017 PIPPA DIMAS [employer] FILLING 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 Ot M17.0 BILATERAL PRIMARY OSTEOARTHRITIS OF KNEE 07/25/2017 PIPPA DIMAS [employer] FILLING 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 Ot R19.00 INTRA-ABD AND PELVIC SWELLING, MASS AND 07/27/2017 Ot J45.909 UNSPECIFIED ASTHMA, UNCOMPLICATED 08/08/2017 Ot J45.909 UNSPECIFIED ASTHMA, UNCOMPLICATED 08/10/2017 RADHA JOHNSTON MD, Ot K21.9 GASTRO-ESOPHAGEAL REFLUX DISEASE WITHOUT 08/10/2017 RADHA JOHNSTON MD Ot Z01.818 ENCOUNTER FOR OTHER PREPROCEDURAL EXAMIN 08/10/2017 RADHA JOHNSTON MD Ot Z79.02 [facility] (CURRENT) USE OF ANTITHROMBOTI 09/06/2017 RADHA JOHNSTON MD, Ot K21.9 GASTRO-ESOPHAGEAL REFLUX DISEASE WITHOUT 09/06/2017 RADHA JOHNSTON MD Ot Z01.818 ENCOUNTER FOR OTHER PREPROCEDURAL EXAMIN 09/11/2017 RADHA JOHNSTON MD Ot E66.01 MORBID (SEVERE) OBESITY DUE TO EXCESS CA 09/11/2017 RADHA JOHNSTON MD Ot E78.00 PURE HYPERCHOLESTEROLEMIA, UNSPECIFIED 09/11/2017 RADHA JOHNSTON MD Ot I10 ESSENTIAL (PRIMARY) HYPERTENSION 09/11/2017 RADHA JOHNSTON MD Ot I25.10 ATHSCL HEART DISEASE OF [place] CORONARY 09/11/2017 RADHA JOHNSTON MD Ot K20.9 ESOPHAGITIS, UNSPECIFIED 09/11/2017 RADHA JOHNSTON MD Ot K25.9 GASTRIC ULCER, UNSP ACUTE OR CHRONIC, 09/11/2017 RADHA JOHNSTON MD Ot K26.9 DUODENAL ULCER, UNSP ACUTE OR CHRONIC 09/11/2017 RADHA JOHNSTON MD Ot K44.9 DIAPHRAGMATIC HERNIA WITHOUT OBSTRUCTION 09/11/2017 RADHA JOHNSTON MD Ot Z68.45 BODY MASS INDEX (BMI) 70 OR GREATER, ALFREDO 09/11/2017 RADHA JOHNSTON MD Ot Z95.5 PRESENCE OF CORONARY ANGIOPLASTY IMPLANT 09/18/2017 RADHA JOHNSTON MD Ot E66.01 MORBID (SEVERE) OBESITY DUE TO EXCESS CA 09/18/2017 PRESTON WHITE, RADHA Castro Ot E78.00 PURE HYPERCHOLESTEROLEMIA, UNSPECIFIED 09/18/2017 RADHA JOHNSTON MD Ot I10 ESSENTIAL (PRIMARY) HYPERTENSION 09/18/2017 RADHA JOHNSTON MD Ot I25.10 ATHSCL HEART DISEASE OF [place] CORONARY 09/18/2017 RADHA JOHNSTON MD Ot K20.9 ESOPHAGITIS, UNSPECIFIED 09/18/2017 RADHA JOHNSTON MD Ot K25.9 GASTRIC ULCER, UNSP ACUTE OR CHRONIC, 09/18/2017 RADHA JOHNSTON MD, Ot K26.9 DUODENAL ULCER, UNSP ACUTE OR CHRONIC 09/18/2017 RADHA JOHNSTON MD Ot K44.9 DIAPHRAGMATIC HERNIA WITHOUT OBSTRUCTION 09/18/2017 RADHA JOHNSTON MD Ot Z68.45 BODY MASS INDEX (BMI) 70 OR GREATER, ALFREDO 09/18/2017 RADHA JOHNSTON MD Ot Z95.5 PRESENCE OF CORONARY ANGIOPLASTY IMPLANT 10/24/2017 PRIYA WHITE FACC, VENUS FACP CCDS Ot E66.9 OBESITY, UNSPECIFIED 10/24/2017 PRIYA WHITE FACC, VENUS FACP CCDS Ot G47.33 OBSTRUCTIVE SLEEP APNEA (ADULT) (PEDIATR 10/24/2017 PRIYA WHITE FACC, VENUS FACP CCDS Ot I11.0 HYPERTENSIVE HEART DISEASE WITH HEART FA 10/24/2017 PRIYA WHITE FACC ALI FACP CCDS Ot I25.10 ATHSCL HEART DISEASE OF [place] CORONARY 10/24/2017 PRIYA WHITE FACC, VENUS FACP CCDS Ot I42.0 DILATED CARDIOMYOPATHY 10/24/2017 PRIYA WHITE FACC, VENUS FACP CCDS Ot I44.69 OTHER FASCICULAR BLOCK 10/24/2017 PRIYA WHITE FACC, VENUS FACP CCDS Ot I50.22 CHRONIC SYSTOLIC (CONGESTIVE) HEART FAIL 10/24/2017 VENUS POWERS MD, FACC FACP CCDS Ot K21.9 GASTRO-ESOPHAGEAL REFLUX DISEASE WITHOUT Procedures Code [place] [address] A1C (IN-HOUSE) 11/30/2012 78807 BNP 12/05/2012 22626 MEASURE BLOOD OXYGEN LEVEL 12/05/2012 69009 UA LONG DIP 03/14/2013 01156 PULMONARY FUNCTION TEST (IN- HOUSE) 04/26/2013 07102 BRONCHODILATION PRE/POST 04/26/2013 91036 RESPIRATORY FLOW VOLUME LOOP 04/26/2013 46880 OXIMETRY 04/29/2013 29034 JOINT INJECTION- LARGE JOINT (SPECIFY MEDCIN DESCRIPTION) 08/22/2013 24906 XRAY KNEE RIGHT 1 OR 2 VIEWS 10/03/2013 PHYSICAL PHYSICAL THERAPY, VIA JEREMY 10/03/2013 J0696 ROCEPHIN INJ 1 g 10/30/2013 51151 THERAPUTIC INJ SQ/IM 10/30/2013 25955 ROUTINE VENIPUNCTURE 11/07/2013 3246251 GFR CALC (RESULT ONLY) 11/08/2013 67054 BMP 11/08/2013 Sveta Wilson 11/12/2013 64985 ROUTINE VENIPUNCTURE 01/08/2014 4413797 GFR CALC (RESULT ONLY) 01/09/2014 00823 BMP 01/09/2014 01893 BNP 01/10/2014 88662 XRAY CHEST 2 VIEW 01/22/2014 26134 PULMONARY FUNCTION TEST 01/22/2014 06024 A1C (IN-HOUSE) 01/22/2014 31432 OXIMETRY 02/25/2014 45954 PULMONARY FUNCTION TEST 02/25/2014 30522 ROUTINE VENIPUNCTURE 03/20/2014 66392 A1C (IN-HOUSE) 03/20/2014 97684 CBC 03/20/2014 30316 CMP 03/20/2014 82471 LIPID PANEL 03/20/2014 [id number] GFR CALC (RESULT ONLY) 03/20/2014 22139 TSH 03/20/2014 17218 BNP 03/21/2014 SVETA WILSON 03/24/2014 96328 ROUTINE VENIPUNCTURE 06/17/2014 81123 A1C (IN-HOUSE) 06/17/2014 6578255 GFR CALC (RESULT ONLY) 06/17/2014 96853 CMP 06/17/2014 29237 TSH 06/17/2014 87131 OXIMETRY 06/18/2014 80903 ROUTINE VENIPUNCTURE 09/09/2014 61502 CMP 09/09/2014 17757 CBC 09/09/2014 80492 OXIMETRY 11/26/2014 62466 ROUTINE VENIPUNCTURE 02/16/2015 20680 CBC 02/16/2015 22188 MYCOPLASMA ANTIBODY 02/16/2015 63073 OXIMETRY 02/16/2015 91741 OXIMETRY 03/02/2015 Results Test Result Range Automated blood complete blood count (hemogram) panel - 08/16/16 07:28 Blood leukocytes automated count (number/volume) 9.8 10*3/uL 4.3-11.0 Blood erythrocytes automated count (number/volume) 4.53 10*6/uL 4.35-5.85 Venous blood hemoglobin measurement (mass/volume) 13.6 g/dL 11.5-16.0 Blood hematocrit (volume fraction) 41 % 35-52 Automated erythrocyte mean corpuscular volume 91 [foz_us] 80-99 Automated erythrocyte mean corpuscular hemoglobin (mass per erythrocyte) 30 pg 25-34 Automated erythrocyte mean corpuscular hemoglobin concentration measurement ( mass/volume) 33 g/dL 32-36 Automated erythrocyte distribution width ratio 14.4 % 10.0-14.5 Automated blood platelet count (count/volume) 247 10*3/uL 130-400 Automated blood platelet mean volume measurement 10.1 [foz_us] 7.4-10.4 PT panel in platelet poor plasma by coagulation assay - 08/16/16 07:28 Prothrombin time (PT) in platelet poor plasma by coagulation assay 12.5 s 12.2-14.7 INR in platelet poor plasma or blood by coagulation assay 1.0 0.8-1.4 Activated partial thromboplastin time (aPTT) in platelet poor plasma bycoagulation assay - 08/16/16 07:28 Activated partial thromboplastin time (aPTT) in platelet poor plasma bycoagulation assay 25 s 24-35 Comprehensive metabolic panel - 08/16/16 07:28 Serum or plasma sodium measurement (moles/volume) 139 mmol/L 135-145 Serum or plasma potassium measurement (moles/volume) 4.2 mmol/L 3.6-5.0 Serum or plasma chloride measurement (moles/volume) 103 mmol/L 98-107 Carbon dioxide 23 mmol/L 21-32 Serum or plasma anion gap determination (moles/volume) 13 mmol/L 5-14 Serum or plasma urea nitrogen measurement (mass/volume) 25 mg/dL 7-18 Serum or plasma creatinine measurement (mass/volume) 1.32 mg/dL 0.60-1.30 Serum or plasma urea nitrogen/creatinine mass ratio 19 NRG Serum or plasma creatinine measurement with calculation of estimated glomerular filtration rate 45 NRG Serum or plasma glucose measurement (mass/volume) 140 mg/dL 70-105 Serum or plasma calcium measurement (mass/volume) 9.2 mg/dL 8.5-10.1 Serum or plasma total bilirubin measurement (mass/volume) 0.4 mg/dL 0.1-1.0 Serum or plasma alkaline phosphatase measurement (enzymatic activity/volume) 67 U/L 40-136 Serum or plasma aspartate aminotransferase measurement (enzymatic activity/ volume) 18 U/L 5-34 Serum or plasma alanine aminotransferase measurement (enzymatic activity/volume ) 14 U/L 0-55 Serum or plasma protein measurement (mass/volume) 7.6 g/dL 6.4-8.2 Serum or plasma albumin measurement (mass/volume) 3.6 g/dL 3.2-4.5 Lipid 1996 panel - 08/16/16 07:28 Serum or plasma triglyceride measurement (mass/volume) 219 mg/dL <150 Serum or plasma cholesterol measurement (mass/volume) 165 mg/dL < 200 Serum or plasma cholesterol in HDL measurement (mass/volume) 41 mg/ dL 40-60 Cholesterol in LDL [mass/volume] in serum or plasma by direct assay 98 mg/dL 1-129 Serum or plasma cholesterol in VLDL measurement (mass/volume) 44 mg/ dL 5-40 Methicillin resistant Staphylococcus aureus (MRSA) screening culture - 07:28 Methicillin resistant Staphylococcus aureus (MRSA) screening culture NEG NRG Activated partial thromboplastin time (aPTT) in platelet poor plasma bycoagulation assay - 08/16/16 11:32 Activated partial thromboplastin time (aPTT) in platelet poor plasma bycoagulation assay 63 s 24-35 Automated blood complete blood count (hemogram) panel - 08/17/16 03:55 Blood leukocytes automated count (number/volume) 8.4 10*3/uL 4.3-11.0 Blood erythrocytes automated count (number/volume) 4.07 10*6/uL 4.35-5.85 Venous blood hemoglobin measurement (mass/volume) 12.3 g/dL 11.5-16.0 Blood hematocrit (volume fraction) 38 % 35-52 Automated erythrocyte mean corpuscular volume 94 [foz_us] 80-99 Automated erythrocyte mean corpuscular hemoglobin (mass per erythrocyte) 30 pg 25-34 Automated erythrocyte mean corpuscular hemoglobin concentration measurement ( mass/volume) 32 g/dL 32-36 Automated erythrocyte distribution width ratio 14.1 % 10.0-14.5 Automated blood platelet count (count/volume) 204 10*3/uL 130-400 Automated blood platelet mean volume measurement 10.1 [foz_us] 7.4-10.4 Whole blood basic metabolic panel - 08/17/16 03:55 Serum or plasma sodium measurement (moles/volume) 138 mmol/L 135-145 Serum or plasma potassium measurement (moles/volume) 3.6 mmol/L 3.6-5.0 Serum or plasma chloride measurement (moles/volume) 99 mmol/L 98-107 Carbon dioxide 24 mmol/L 21-32 Serum or plasma anion gap determination (moles/volume) 15 mmol/L 5-14 Serum or plasma urea nitrogen measurement (mass/volume) 22 mg/dL 7-18 Serum or plasma creatinine measurement (mass/volume) 1.25 mg/dL 0.60-1.30 Serum or plasma urea nitrogen/creatinine mass ratio 18 NRG Serum or plasma creatinine measurement with calculation of estimated glomerular filtration rate 47 NRG Serum or plasma glucose measurement (mass/volume) 106 mg/dL 70-105 Serum or plasma calcium measurement (mass/volume) 8.7 mg/dL 8.5-10.1 Complete blood count (CBC) with automated white blood cell (WBC) differential - 05/13/17 22:58 Blood leukocytes automated count (number/volume) 10.0 10*3/uL 4.3-11.0 Blood erythrocytes automated count (number/volume) 4.69 10*6/uL 4.35-5.85 Venous blood hemoglobin measurement (mass/volume) 13.7 g/dL 11.5-16.0 Blood hematocrit (volume fraction) 44 % 35-52 Automated erythrocyte mean corpuscular volume 94 [foz_us] 80-99 Automated erythrocyte mean corpuscular hemoglobin (mass per erythrocyte) 29 pg 25-34 Automated erythrocyte mean corpuscular hemoglobin concentration measurement ( mass/volume) 31 g/dL 32-36 Automated erythrocyte distribution width ratio 14.9 % 10.0-14.5 Automated blood platelet count (count/volume) 155 10*3/uL 130-400 Automated blood platelet mean volume measurement 9.7 [foz_us] 7.4-10.4 Automated blood neutrophils/100 leukocytes 77 % 42-75 Automated blood lymphocytes/100 leukocytes 15 % 12-44 Blood monocytes/100 leukocytes 5 % 0-12 Automated blood eosinophils/100 leukocytes 3 % 0-10 Automated blood basophils/100 leukocytes 0 % 0-10 Blood neutrophils automated count (number/volume) 7.6 10*3 1.8-7.8 Blood lymphocytes automated count (number/volume) 1.5 10*3 1.0-4.0 Blood monocytes automated count (number/volume) 0.5 10*3 0.0-1.0 Automated eosinophil count 0.3 10*3/uL 0.0-0.3 Automated blood basophil count (count/volume) 0.0 10*3/uL 0.0-0.1 PT panel in platelet poor plasma by coagulation assay - 05/13/17 22:58 Prothrombin time (PT) in platelet poor plasma by coagulation assay 12.4 s 12.2-14.7 INR in platelet poor plasma or blood by coagulation assay 1.0 0.8-1.4 Activated partial thromboplastin time (aPTT) in platelet poor plasma bycoagulation assay - 05/13/17 22:58 Activated partial thromboplastin time (aPTT) in platelet poor plasma bycoagulation assay 20 s 24-35 Comprehensive metabolic panel - 05/13/17 22:58 Serum or plasma sodium measurement (moles/volume) 140 mmol/L 135-145 Serum or plasma potassium measurement (moles/volume) 4.4 mmol/L 3.6-5.0 Serum or plasma chloride measurement (moles/volume) 104 mmol/L 98-107 Carbon dioxide 25 mmol/L 21-32 Serum or plasma anion gap determination (moles/volume) 11 mmol/L 5-14 Serum or plasma urea nitrogen measurement (mass/volume) 16 mg/dL 7-18 Serum or plasma creatinine measurement (mass/volume) 1.23 mg/dL 0.60-1.30 Serum or plasma urea nitrogen/creatinine mass ratio 13 0 -20 Serum or plasma creatinine measurement with calculation of estimated glomerular filtration rate 48 NRG Serum or plasma glucose measurement (mass/volume) 173 mg/dL 70-105 Serum or plasma calcium measurement (mass/volume) 9.2 mg/dL 8.5-10.1 Serum or plasma total bilirubin measurement (mass/volume) 0.3 mg/dL 0.1-1.0 Serum or plasma alkaline phosphatase measurement (enzymatic activity/volume) 92 U/L 40-136 Serum or plasma aspartate aminotransferase measurement (enzymatic activity/ volume) 13 U/L 5-34 Serum or plasma alanine aminotransferase measurement (enzymatic activity/volume ) 11 U/L 0-55 Serum or plasma protein measurement (mass/volume) 7.9 g/dL 6.4-8.2 Serum or plasma albumin measurement (mass/volume) 3.6 g/dL 3.2-4.5 Magnesium - 05/13/17 22:58 Magnesium 2.3 mg/dL 1.8-2.4 Serum or plasma creatine kinase measurement (enzymatic activity/volume) - 05/13 22:58 Serum or plasma creatine kinase measurement (enzymatic activity/volume) 23 U/L 29-168 Serum or plasma creatine kinase MB measurement (enzymatic activity/volume) - 22:58 Serum or plasma creatine kinase MB measurement (enzymatic activity/volume) 1.5 ng/mL <6.6 Serum or plasma lithium measurement (moles/volume) - 05/13/17 22:58 BNP level 74.1 pg/mL <100.0 Serum or plasma troponin i.cardiac measurement (mass/volume) - 05/13/17 22:58 Serum or plasma troponin i.cardiac measurement (mass/volume) < ng/ mL <0.30 Serum or plasma amylase measurement (enzymatic activity/volume) - 05/13/17 22: 58 Serum or plasma amylase measurement (enzymatic activity/volume) 43 U /L 25-125 Lipase - 05/13/17 22:58 Lipase 44 U/L 8-78 Complete blood count (CBC) with automated white blood cell (WBC) differential - 05/14/17 04:32 Blood leukocytes automated count (number/volume) 10.2 10*3/uL 4.3-11.0 Blood erythrocytes automated count (number/volume) 4.44 10*6/uL 4.35-5.85 Venous blood hemoglobin measurement (mass/volume) 12.8 g/dL 11.5-16.0 Blood hematocrit (volume fraction) 41 % 35-52 Automated erythrocyte mean corpuscular volume 93 [foz_us] 80-99 Automated erythrocyte mean corpuscular hemoglobin (mass per erythrocyte) 29 pg 25-34 Automated erythrocyte mean corpuscular hemoglobin concentration measurement ( mass/volume) 31 g/dL 32-36 Automated erythrocyte distribution width ratio 14.7 % 10.0-14.5 Automated blood platelet count (count/volume) 201 10*3/uL 130-400 Automated blood platelet mean volume measurement 9.8 [foz_us] 7.4-10.4 Automated blood neutrophils/100 leukocytes 76 % 42-75 Automated blood lymphocytes/100 leukocytes 15 % 12-44 Blood monocytes/100 leukocytes 6 % 0-12 Automated blood eosinophils/100 leukocytes 3 % 0-10 Automated blood basophils/100 leukocytes 0 % 0-10 Blood neutrophils automated count (number/volume) 7.7 10*3 1.8-7.8 Blood lymphocytes automated count (number/volume) 1.5 10*3 1.0-4.0 Blood monocytes automated count (number/volume) 0.6 10*3 0.0-1.0 Automated eosinophil count 0.3 10*3/uL 0.0-0.3 Automated blood basophil count (count/volume) 0.0 10*3/uL 0.0-0.1 Comprehensive metabolic panel - 05/14/17 04:32 Serum or plasma sodium measurement (moles/volume) 141 mmol/L 135-145 Serum or plasma potassium measurement (moles/volume) 4.2 mmol/L 3.6-5.0 Serum or plasma chloride measurement (moles/volume) 105 mmol/L 98-107 Carbon dioxide 27 mmol/L 21-32 Serum or plasma anion gap determination (moles/volume) 9 mmol/L 5-14 Serum or plasma urea nitrogen measurement (mass/volume) 19 mg/dL 7-18 Serum or plasma creatinine measurement (mass/volume) 1.29 mg/dL 0.60-1.30 Serum or plasma urea nitrogen/creatinine mass ratio 15 0 -20 Serum or plasma creatinine measurement with calculation of estimated glomerular filtration rate 46 NRG Serum or plasma glucose measurement (mass/volume) 134 mg/dL 70-105 Serum or plasma calcium measurement (mass/volume) 9.3 mg/dL 8.5-10.1 Serum or plasma total bilirubin measurement (mass/volume) 0.3 mg/dL 0.1-1.0 Serum or plasma alkaline phosphatase measurement (enzymatic activity/volume) 85 U/L 40-136 Serum or plasma aspartate aminotransferase measurement (enzymatic activity/ volume) 13 U/L 5-34 Serum or plasma alanine aminotransferase measurement (enzymatic activity/volume ) 10 U/L 0-55 Serum or plasma protein measurement (mass/volume) 7.6 g/dL 6.4-8.2 Serum or plasma albumin measurement (mass/volume) 3.5 g/dL 3.2-4.5 Lipid 1996 panel - 05/14/17 04:32 Serum or plasma triglyceride measurement (mass/volume) 127 mg/dL <150 Serum or plasma cholesterol measurement (mass/volume) 173 mg/dL < 200 Serum or plasma cholesterol in HDL measurement (mass/volume) 43 mg/ dL 40-60 Cholesterol in LDL [mass/volume] in serum or plasma by direct assay 110 mg/dL 1-129 Serum or plasma cholesterol in VLDL measurement (mass/volume) 25 mg/ dL 5-40 Serum or plasma troponin i.cardiac measurement (mass/volume) - 05/14/17 04:32 Serum or plasma troponin i.cardiac measurement (mass/volume) < ng/ mL <0.30 Hemoglobin A1c - 05/14/17 04:32 Hemoglobin A1c 5.4 % 4.5-6.2 Urine beta human chorionic gonadotropin (hCG) measurement - 05/14/17 08:50 Urine beta human chorionic gonadotropin (hCG) measurement NEGATIVE NEGATIVE Urine drug screening test - 05/14/17 08:50 Urine phencyclidine detection by screening method NEGATIVE NEGATIVE Urine benzodiazepines detection by screening method NEGATIVE NEGATIVE Urine cocaine detection NEGATIVE NEGATIVE Urine amphetamines detection by screening method NEGATIVE NEGATIVE Urine methamphetamine detection by screening method NEGATIVE NEGATIVE Urine cannabinoids detection by screening method NEGATIVE NEGATIVE Urine opiates detection by screening method NEGATIVE NEGATIVE Urine barbiturates detection NEGATIVE NEGATIVE Screening urine tricyclic antidepressants detection NEGATIVE NEGATIVE Urine methadone detection by screening method NEGATIVE NEGATIVE Urine oxycodone detection NEGATIVE NEGATIVE Urine propoxyphene detection NEGATIVE NEGATIVE Complete urinalysis with reflex to culture - 05/14/17 08:50 Urine color determination YELLOW NRG Urine clarity determination SLIGHTLY CLOUDY NRG Urine pH measurement by test strip 5 5-9 Specific gravity of urine by test strip 1.020 1.016- 1.022 Urine protein assay by test strip, semi-quantitative 2+ NEGATIVE Urine glucose detection by automated test strip NEGATIVE NEGATIVE Erythrocytes detection in urine sediment by light microscopy 1+ NEGATIVE Urine ketones detection by automated test strip 1+ NEGATIVE Urine nitrite detection by test strip NEGATIVE NEGATIVE Urine total bilirubin detection by test strip NEGATIVE NEGATIVE Urine urobilinogen measurement by automated test strip (mass/volume) 1 mg/dL NORMAL Urine leukocyte esterase detection by dipstick 3+ NEGATIVE Automated urine sediment erythrocyte count by microscopy (number/high power field) [HPF] NRG Automated urine sediment leukocyte count by microscopy (number/high power field ) [HPF] NRG Bacteria detection in urine sediment by light microscopy MODERATE NRG Squamous epithelial cells detection in urine sediment by light microscopy 25-50 NRG Crystals detection in urine sediment by light microscopy PRESENT NRG Casts detection in urine sediment by light microscopy NONE NRG Mucus detection in urine sediment by light microscopy NEGATIVE NRG Complete urinalysis with reflex to culture YES NRG Calcium oxalate crystals detection in urine sediment by light microscopy RARE NRG Bacterial urine culture - 05/14/17 08:50 Bacterial urine culture [id number] NRG COLONY COUNT 10,000/ML - 100,000/ML NRG FTX;REPORTABLE PLUS, NRG FREE TEXT ENTRY 2 MIXED GRAM POSITIVES <10,000/ML NRG Bacterial susceptibility panel - 05/14/17 08:50 Gentamicin susceptibility test by minimum inhibitory concentration > = NRG Trimethoprim/sulfamethoxazole susceptibility test by minimum inhibitoryconcentration <= NRG Ampicillin susceptibility test by minimum inhibitory concentration > = NRG Tobramycin susceptibility test by minimum inhibitory concentration > = NRG Cefazolin susceptibility test by minimum inhibitory concentration > = NRG Ceftriaxone susceptibility test by minimum inhibitory concentration >= NRG Ampicillin/sulbactam susceptibility test by minimum inhibitory concentration >= NRG Ciprofloxacin susceptibility test by minimum inhibitory concentration >= NRG Meropenem susceptibility test by minimum inhibitory concentration < = NRG Nitrofurantoin susceptibility test by minimum inhibitory concentration <= NRG Aztreonam susceptibility test by minimum inhibitory concentration R NRG Extended spectrum beta lactamase (ESBL) producing bacteria susceptibility test by minimum inhibitory concentration + NRG Amikacin susceptibility test by minimum inhibitory concentration S NRG Automated blood complete blood count (hemogram) panel - 05/15/17 07:38 Blood leukocytes automated count (number/volume) 9.9 10*3/uL 4.3-11.0 Blood erythrocytes automated count (number/volume) 4.22 10*6/uL 4.35-5.85 Venous blood hemoglobin measurement (mass/volume) 12.3 g/dL 11.5-16.0 Blood hematocrit (volume fraction) 39 % 35-52 Automated erythrocyte mean corpuscular volume 93 [foz_us] 80-99 Automated erythrocyte mean corpuscular hemoglobin (mass per erythrocyte) 29 pg 25-34 Automated erythrocyte mean corpuscular hemoglobin concentration measurement ( mass/volume) 32 g/dL 32-36 Automated erythrocyte distribution width ratio 14.7 % 10.0-14.5 Automated blood platelet count (count/volume) 185 10*3/uL 130-400 Automated blood platelet mean volume measurement 9.6 [foz_us] 7.4-10.4 Whole blood basic metabolic panel - 05/15/17 07:38 Serum or plasma sodium measurement (moles/volume) 139 mmol/L 135-145 Serum or plasma potassium measurement (moles/volume) 4.1 mmol/L 3.6-5.0 Serum or plasma chloride measurement (moles/volume) 103 mmol/L 98-107 Carbon dioxide 28 mmol/L 21-32 Serum or plasma anion gap determination (moles/volume) 8 mmol/L 5-14 Serum or plasma urea nitrogen measurement (mass/volume) 20 mg/dL 7-18 Serum or plasma creatinine measurement (mass/volume) 1.27 mg/dL 0.60-1.30 Serum or plasma urea nitrogen/creatinine mass ratio 16 0 -20 Serum or plasma creatinine measurement with calculation of estimated glomerular filtration rate 46 NRG Serum or plasma glucose measurement (mass/volume) 147 mg/dL 70-105 Serum or plasma calcium measurement (mass/volume) 8.7 mg/dL 8.5-10.1 Serum or plasma lithium measurement (moles/volume) - 05/15/17 07:38 BNP level 89.8 pg/mL <100.0 Urine beta human chorionic gonadotropin (hCG) measurement - 09/11/17 09:25 Urine beta human chorionic gonadotropin (hCG) measurement NEGATIVE NEGATIVE Encounters ACCT No. Visit Date/Time Discharge Status Pt. Type Provider Facility Loc./Unit Complaint [id number] 03/02/2015 11:40:00 03/02/2015 23:59:59 [facility] Outpatient PIPPA DIMAS APRN [id number] 02/16/2015 10:12:00 02/16/2015 23:59:59 [facility] Outpatient PIPPA DIMAS APRN [id number] 01/27/2015 13:38:00 01/27/2015 23:59:59 [facility] Outpatient MICKEY WISEMAN DO [id number]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
[2017-11-14] MEDS ORDERED: HYDROcodone/APAP 7.5 MG/325 MG (LORTAB, LORCET PLUS) TABLET PO STA (22:17)
[2017-11-14] MEDS ORDERED: LIDOCAINE 1% INJ 50 ML (XYLOCAINE) VIAL ONE (22:23)
--- NOTE | 2017-11-14 22:25 | ED Lower Extremity ---
General Chief Complaint: Lower Extremity Stated Complaint: BLISTERS ON LEGS Nursing Triage Note: PT PRESENTS TO ED WITH COMPLAINT OF LOWER LEFT LEG BLISTERS. STATES THAT THE BLISTERS SOMETIMES POP OPEN AND OOZE. STATES THAT ONE TUNNELS IN AND THAT SHE CAN ALMOST STICK HER PINKY IN IT. Nursing Sepsis Screen: No Definite Risk Source: patient Exam Limitations: no limitations History of Present Illness Time seen by provider: 22:08 Initial Comments Here with report of blisters and redness to bilateral lower extremities on the lateral aspect of the calves. States that she had similar about a month ago and was on Keflex for a week and that didn't help. He has returned. She is concerned about infection and states that it is hurting. Denies fever or chills. Denies nausea or vomiting. She is on fluid pills and states that she was off those for a while but has restarted them. Onset: other (2-3 days and getting worse) Severity: moderate Pain/Injury Location: bilateral leg Method of Injury: unknown Modifying Factors: Worse With Movement, Improves With Rest Allergies and Home Medications Allergies Coded Allergies: sulfamethoxazole (Unverified Allergy, Unknown, 11/14/17) trimethoprim (Unverified Allergy, Unknown, 04/23/06) Home Medications Albuterol Sulfate 6.7 Gm Hfa.aer.ad, 2 PUFF IH EVERY 4-6 HOURS PRN for SHORTNESS OF BREATH, (Reported) Aspirin 81 Mg Tablet.dr, 81 MG PO DAILY, (Reported) Clopidogrel Bisulfate 75 Mg Tablet, 75 MG PO DAILY, (Reported) Cyclobenzaprine HCl 10 Mg Tablet, 10 MG PO HS, (Reported) Duloxetine HCl 60 Mg Capsule.dr, 60 MG PO DAILY, (Reported) Gabapentin 300 Mg Capsule, 300 MG PO HS, (Reported) Levothyroxine Sodium 75 Mcg Tablet, 75 MCG PO DAILY, (Reported) Metolazone 2.5 Mg Tablet, 2.5 MG PO DAILY, (Reported) Metoprolol Tartrate 50 Mg Tablet, 50 MG PO BID, (Reported) Mupirocin 22 Gm Oint...g., 22 GM TP UD, (Reported) APPLY TO AFFECTED AREAS EVERY OTHER DAY Omeprazole 20 Mg Capsule.dr, 20 MG PO DAILY, (Reported) Potassium Chloride 20 Meq Tablet.er, 20 MEQ PO DAILY, (Reported) Ropinirole HCl 4 Mg Tablet, 4 MG PO DAILY@1900, (Reported) TAKES 1-3 HOURS PRIOR TO BEDTIME Sacubitril/Valsartan 1 Each Tablet, 1 EACH PO BID, (Reported) Simvastatin 20 Mg Tablet, 20 MG PO HS, (Reported) Constitutional: see HPI, No chills, No fever EENTM: no symptoms reported Respiratory: no symptoms reported Cardiovascular: no symptoms reported Gastrointestinal: no symptoms reported Musculoskeletal: No joint pain, muscle pain Skin: change in color, lesions Psychiatric/Neurological: No Symptoms Reported Past Irtzexs-Kesbfl-Yexidm Hx Patient Social History Alcohol Use: Denies Use Recreational Drug Use: No Smoking Status: Never a Smoker Recent Foreign Travel: No Contact w/Someone Who Travel: No Recent Infectious Disease Expo: No Recent Hopitalizations: No Physical Abuse: No Sexual Abuse: No Immunizations Up To Date PED Vaccines UTD: No Date of Influenza Vaccine: Aug 20, 2012 Seasonal Allergies Seasonal Allergies: No Surgeries History of Surgeries: Yes (CARDIAC CATH--STENTS X 2 07/2016; RIGHT KNEE SCOPE) Surgeries: Cardiac, Section, Coronary Stent, Gallbladder, Orthopedic Respiratory History of Respiratory Disorde: Yes Respiratory Disorders: Asthma, Sleep Apnea Currently Using BIPAP: No Cardiovascular History of Cardiac Disorders: Yes (LBBB, CHF) Cardiac Disorders: Chronic Edema/Swelling, Coronary Artery Disease, High Cholesterol, Hypertension Neurological History of Neurological Disord: No (RESTLESS LEGS) Reproductive System Hx Reproductive Disorders: No Sexually Transmitted Disease: No Female Reproductive Disorders: Denies Genitourinary History of Genitourinary Disor: Yes Genitourinary Disorders: Renal Failure Gastrointestinal History of Gastrointestinal Di: Yes Gastrointestinal Disorders: Gastroesophageal Reflux Musculoskeletal History of Musculoskeletal Dis: Yes (KNEE PAIN --RIGHT KNEE SCOPE; RESTLESS LEGS) Musculoskeletal Disorders: Chronic Back Pain Endocrine History of Endocrine Disorders: Yes (borderline diabetes, morbid obesity) Endocrine Disorders: Hypothyroidsim HEENT History of HEENT Disorders: No Cancer History of Cancer: No Psychosocial History of Psychiatric Problem: Yes Behavioral Health Disorders: Sleep Difficulties, Anxiety Suicide Risk Score: 0 Integumentary History of Skin or Integumenta: Yes ( CELLULITIS OF LEGS) Blood Transfusions History of Blood Disorders: No Adverse Reaction to a Blood Tr: No Reviewed Nursing Assessment Reviewed/Agree w Nursing PMH: Yes Family Medical History Significant Family History: Heart Disease, Vascular Disease Family Medial History: FH: COPD (chronic obstructive pulmonary disease) 19 MOTHER FH: congestive heart failure 19 MOTHER FH: renal failure 19 MOTHER Physical Exam Vital Signs Vital Sign - Last 12Hours 11/14/17 21:46 Temp 97.7 Pulse 82 Resp 20 B/P (MAP) 137/84 (101) Pulse Ox 94 O2 Delivery Room Air Capillary Refill : Less Than 3 Seconds General Appearance: WD/WN, no apparent distress Cardiovascular: regular rate, rhythm, no murmur Respiratory: lungs clear, normal breath sounds Gastrointestinal: non tender, soft Back: normal inspection, no CVA tenderness, no vertebral tenderness Legs: bilateral leg soft tissue tenderness, bilateral leg swelling, bilateral leg other (bilateral lower extremities lateral aspect with blisters and redness concerning for cellulitis) Neurologic/Psychiatric: alert, oriented x 3 Skin: warm/dry, other (erythema and blisters to the lateral aspect of the lower legs as described above.) Progress/Results/Core Measures Results/Orders My Orders Orders - CANDY KULKARNI MD Hydrocodone/Apap 7.5/325 Tab (Lortab 7. (11/14/17 22:17) Ceftriaxone Injection (Rocephin Injectio (11/14/17 22:30) Lidocaine 1% Injection (Xylocaine 1% Inj (11/14/17 22:30) Vital Signs/I&O Vital Sign - Last 12Hours 11/14/17 21:46 Temp 97.7 Pulse 82 Resp 20 B/P (MAP) 137/84 (101) Pulse Ox 94 O2 Delivery Room Air Blood Pressure Mean: 101 Progress Note : Progress Note Seen and evaluated. Patient does appear to have a localized cellulitis to both legs with weeping blisters. We will initiate outpatient treatment. We will give 1 dose of Rocephin IM here in effort to gain control of the cellulitis and continue Keflex outpatient. Patient and family agree to this plan. Patient will be follow-up within one week at the clinic to evaluate for improvement. Patient will call clinic in the morning. Copy of chart to the clinic. Discharged home with return precautions. Patient verbalize understanding instructions and agreement with plan. Departure Impression Impression: Primary Impression: Cellulitis Qualified Codes: L03.119 - Cellulitis of unspecified part of limb Disposition: 01 HOME, SELF-CARE Condition: Stable Departure-Patient Inst. Decision time for Depature: 22:25 Referrals: [facility] (PCP) Primary Care Physician PIPPA DIMAS (Family) Primary Care Physician Patient Instructions: Cellulitis (Skin Infection), Adult (DC) Add. Discharge Instructions: All discharge instructions reviewed with patient and/or family. Voiced understanding. Take medications as directed. You may take ibuprofen or Tylenol as needed for pain per package directions. Follow up with your Dr. in one week for recheck. Return for worse pain, fever, vomiting, increasing redness or swelling or other concerns as needed. Continue other medications as directed and previously prescribed. Scripts Cephalexin (Cephalexin) 500 Mg Tablet 500 MG PO TID, #30 TAB 0 Refills Prov: CANDY KULKARNI MD 11/14/17 Copy Copies To 1: ROBERTA COHEN MD, TIMOTHY D MD Nov 14, 2017 22:25
[2017-11-14] MEDS ORDERED: CEPH500T PO (22:27)
[2017-11-14] MEDS ORDERED: LIDOCAINE 1% INJ 20 ML (XYLOCAINE) VIAL INJ ONE (22:30)
[2017-11-14] MEDS ORDERED: cefTRIAXone 1 GM (ROCEPHIN) VIAL IM ONE (22:30)
[2017-11-14 23:05] VITALS: BP 130/82
== END 2017-11-14 22:58 | disposition home or self-care (01) ==
LOC: EDUNIT# 21:33 → ER 21:34
DX: L03.115 Cellulitis of right lower limb (principal); L03.116 Cellulitis of left lower limb; J45.909 Unspecified asthma, uncomplicated; I25.10 Atherosclerotic heart disease of native coronary artery without angina pectoris; E78.00 Pure hypercholesterolemia, unspecified; I11.0 Hypertensive heart disease with heart failure; I50.9 Heart failure, unspecified; K21.9 Gastro-esophageal reflux disease without esophagitis; E03.9 Hypothyroidism, unspecified; E66.01 Morbid (severe) obesity due to excess calories; F41.9 Anxiety disorder, unspecified; Z82.49 Family history of ischemic heart disease and other diseases of the circulatory system; Z79.82 Long term (current) use of aspirin; Z95.5 Presence of coronary angioplasty implant and graft
CPT/HCPCS: 99284

== ENCOUNTER 2018-01-20 03:06 | Emergency (ER) | payer MEDICAID ==
[~2018-01-20] VITALS: Ht 157.5 cm; Wt 202.3 kg
[~2018-01-20 03:06] MED LIST changes: +CEPH500T PO
[2018-01-20] MEDS ORDERED: LIDOCAINE 1% INJ 50 ML (XYLOCAINE) VIAL ONE (03:35)
--- NOTE | 2018-01-20 03:40 | ED Integumentary General ---
General Chief Complaint: Skin/Wound Problems Stated Complaint: LEFT LEG REDNESS,BURNING & THROBBING Nursing Triage Note: 42Y/O, MORBIDLY OBESE FEMALE TO ED 5 W/ C/O CELLULITIS TO LLE, CHRONIC, WORSE OVER PAST 2-3 DAYS. PT REPORTS SHE "ISN'T REAL GOOD" AT TAKING HER MEDS PRESCRIBED. DENIES SEEING PCP FOR C/O Source: patient, other Exam Limitations: no limitations History of Present Illness Date Seen by Provider: Jan 20, 2018 Time Seen by Provider: 03:23 Initial Comments Patient present to ER by private conveyance with a chief complaint that tonight she noticed some redness swelling and pain in her left lower extremity. She does have some creams and a history of chronic cellulitis. She's had to take Keflex in the past for. She's having no chest pain, shortness of breath, pain in her calf or worsening on exertion. She is not on blood thinners nausea history of DVTs. She is not having a fever, chills. She does have high blood pressure which she decreased her pain but she says it is over a month since she' s asked he taken any of her blood pressure medicines because she's had to help her mother move recently and so has not remembered to take her medicines. She says she oftentimes they'll take her medicines and then fall asleep and because of this reason they have set her up with a outpatient sleep study. Allergies and Home Medications Allergies Coded Allergies: sulfamethoxazole (Unverified Allergy, Unknown, 11/14/17) trimethoprim (Unverified Allergy, Unknown, 04/23/06) Home Medications Albuterol Sulfate 6.7 Gm Hfa.aer.ad, 2 PUFF IH EVERY 4-6 HOURS PRN for SHORTNESS OF BREATH, (Reported) Aspirin 81 Mg Tablet.dr, 81 MG PO DAILY, (Reported) Cephalexin 500 Mg Tablet, 500 MG PO TID Prescribed by: CANDY KULKARNI on 11/14/172226 Clopidogrel Bisulfate 75 Mg Tablet, 75 MG PO DAILY, (Reported) Cyclobenzaprine HCl 10 Mg Tablet, 10 MG PO HS, (Reported) Duloxetine HCl 60 Mg Capsule.dr, 60 MG PO DAILY, (Reported) Gabapentin 300 Mg Capsule, 300 MG PO HS, (Reported) Levothyroxine Sodium 75 Mcg Tablet, 75 MCG PO DAILY, (Reported) Metolazone 2.5 Mg Tablet, 2.5 MG PO DAILY, (Reported) Metoprolol Tartrate 50 Mg Tablet, 50 MG PO BID, (Reported) Mupirocin 22 Gm Oint...g., 22 GM TP UD, (Reported) APPLY TO AFFECTED AREAS EVERY OTHER DAY Omeprazole 20 Mg Capsule.dr, 20 MG PO DAILY, (Reported) Potassium Chloride 20 Meq Tablet.er, 20 MEQ PO DAILY, (Reported) Ropinirole HCl 4 Mg Tablet, 4 MG PO DAILY@1900, (Reported) TAKES 1-3 HOURS PRIOR TO BEDTIME Sacubitril/Valsartan 1 Each Tablet, 1 EACH PO BID, (Reported) Simvastatin 20 Mg Tablet, 20 MG PO HS, (Reported) Patient Home Medication List Home Medication List Reviewed: Yes Constitutional: No chills, No diaphoresis, No fever, No malaise EENTM: No ear discharge, No ear pain Respiratory: No cough, No dyspnea on exertion Cardiovascular: No chest pain, No edema, No palpitations Gastrointestinal: No abdominal pain, No constipation, No diarrhea Genitourinary: No discharge, No dysuria : No Past Motfcba-Xmekqj-Fjkjvq Hx Patient Social History Alcohol Use: Denies Use Recreational Drug Use: No Smoking Status: Never a Smoker Recent Foreign Travel: No Contact w/Someone Who Travel: No Recent Infectious Disease Expo: No Recent Hopitalizations: No Physical Abuse: No Sexual Abuse: No Mistreated: No Fear: No Immunizations Up To Date PED Vaccines UTD: No Date of Influenza Vaccine: Aug 20, 2012 Seasonal Allergies Seasonal Allergies: No Surgeries History of Surgeries: Yes (CARDIAC CATH--STENTS X 2 07/2016; RIGHT KNEE SCOPE) Surgeries: Cardiac, Section, Coronary Stent, Gallbladder, Orthopedic Respiratory History of Respiratory Disorde: Yes Respiratory Disorders: Asthma, Sleep Apnea Currently Using BIPAP: No Cardiovascular History of Cardiac Disorders: Yes (LBBB, CHF) Cardiac Disorders: Chronic Edema/Swelling, Coronary Artery Disease, High Cholesterol, Hypertension Neurological History of Neurological Disord: No (RESTLESS LEGS) Reproductive System Hx Reproductive Disorders: No Sexually Transmitted Disease: No Female Reproductive Disorders: Denies Genitourinary History of Genitourinary Disor: Yes Genitourinary Disorders: Renal Failure Gastrointestinal History of Gastrointestinal Di: Yes Gastrointestinal Disorders: Gastroesophageal Reflux Musculoskeletal History of Musculoskeletal Dis: Yes (KNEE PAIN --RIGHT KNEE SCOPE; RESTLESS LEGS) Musculoskeletal Disorders: Chronic Back Pain Endocrine History of Endocrine Disorders: Yes (borderline diabetes, morbid obesity) Endocrine Disorders: Hypothyroidsim HEENT History of HEENT Disorders: No Cancer History of Cancer: No Psychosocial History of Psychiatric Problem: Yes Behavioral Health Disorders: Sleep Difficulties, Anxiety Suicide Risk Score: 0 Integumentary History of Skin or Integumenta: Yes ( CELLULITIS OF LEGS, CHRONIC) Blood Transfusions History of Blood Disorders: No Adverse Reaction to a Blood Tr: No Family Medical History Significant Family History: Heart Disease, Vascular Disease Family Medial History: FH: COPD (chronic obstructive pulmonary disease) 19 MOTHER FH: congestive heart failure 19 MOTHER FH: renal failure 19 MOTHER Physical Exam Vital Signs Vital Signs - First Documented 01/20/18 03:13 Temp 98.1 Pulse 110 Resp 24 B/P (MAP) 145/111 (122) Pulse Ox 99 O2 Delivery Room Air Capillary Refill : Less Than 3 Seconds General Appearance: WD/WN, no apparent distress HEENT: PERRL/EOMI, pharynx normal Neck: non-tender, normal inspection Cardiovascular: normal peripheral pulses, regular rate, rhythm Respiratory: chest non-tender, lungs clear, normal breath sounds Gastrointestinal: non tender, soft Extremities: non-tender, normal capillary refill, inflammation, swelling, other (left calf cellulitis with a few small clear blister 2-6 mm diameter ) Neurologic/Psychiatric: alert, normal mood/affect, oriented x 3 Skin: warm/dry Progress/Results/Core Measures Results/Orders My Orders Orders - BANDAR REESE Acetaminophen Tablet (Tylenol Tablet) (01/20/18 03:45) Ceftriaxone Injection (Rocephin Injectio (01/20/18 03:45) Lidocaine 1% Injection (Xylocaine 1% Inj (01/20/18 03:45) Vital Signs/I&O Vital Sign - Last 12Hours 01/20/18 03:13 Temp 98.1 Pulse 110 Resp 24 B/P (MAP) 145/111 (122) Pulse Ox 99 O2 Delivery Room Air Blood Pressure Mean: 122 Progress Note : Time: 03:38 Progress Note Cellulitis. We'll give her a gram or Rocephin and set her up on Keflex. She'll follow up Monday with one of her doctors and she'll need to follow up with her primary care physician within the next 1-2 weeks for further management outpatient of her cellulitis. She's been given strict return precautions. She has managed this outpatient in the past. Departure Impression Impression: Primary Impression: Cellulitis of left lower leg Disposition: HOME, SELF-CARE Condition: Stable Departure-Patient Inst. Decision time for Depature: 03:39 Referrals: [facility] (PCP) Primary Care Physician PIPPA DIMAS (Family) Primary Care Physician Patient Instructions: Cellulitis (Skin Infection), Adult (DC) Add. Discharge Instructions: Drink plenty of fluids and use Tylenol 1000 mg every 6 hours as needed for your pain. You may also for a couple days use 400 mg of ibuprofen every 8 hours. Follow-up to primary care physician in the next 1-2 weeks. Use the Keflex one capsule 4 times a day for the next 10 days. All discharge instructions reviewed with patient and/or family. Voiced understanding. Scripts Cephalexin (Keflex) 500 Mg Capsule 500 MG PO QIDPCHS for 10 Days, #40 CAP 0 Refills Prov: BANDAR REESE 01/20/18 Copy Copies To 1: MICKEY WISEMAN DO BANDAR REESE Jan 20, 2018 03:40
[2018-01-20] MEDS ORDERED: CEPH-507 PO (03:42)
[2018-01-20] MEDS ORDERED: LIDOCAINE 1% INJ 20 ML (XYLOCAINE) VIAL INJ ONE (03:45)
[2018-01-20] MEDS ORDERED: ACETAMINOPHEN 500 MG TAB (TYLENOL) PO ONE (03:45)
[2018-01-20] MEDS ORDERED: cefTRIAXone 1 GM (ROCEPHIN) VIAL IM ONE (03:45)
[2018-01-20 04:08] VITALS: BP 147/97
== END 2018-01-20 04:08 | disposition home or self-care (01) ==
LOC: EDUNIT# 03:06 → ER 03:08
DX: L03.116 Cellulitis of left lower limb (principal); F41.9 Anxiety disorder, unspecified; F32.9 Major depressive disorder, single episode, unspecified; E03.9 Hypothyroidism, unspecified; E66.01 Morbid (severe) obesity due to excess calories; K21.9 Gastro-esophageal reflux disease without esophagitis; G25.81 Restless legs syndrome; E78.00 Pure hypercholesterolemia, unspecified; I11.0 Hypertensive heart disease with heart failure; I50.9 Heart failure, unspecified; I25.10 Atherosclerotic heart disease of native coronary artery without angina pectoris; Z87.59 Personal history of other complications of pregnancy, childbirth and the puerperium; Z95.5 Presence of coronary angioplasty implant and graft; Z79.82 Long term (current) use of aspirin; Z88.2 Allergy status to sulfonamides; Z88.8 Allergy status to other drugs, medicaments and biological substances
CPT/HCPCS: 99284

== ENCOUNTER → 2018-04-30 | Outpatient (CLI) | payer MEDICAID ==
[~2018-04-30] MED LIST changes: +CEPH-507 PO; +RT-ALBUTEROL SULF 2.5 MG/3 ML PRE-MIX VIAL INH ONE
== END ==
LOC: RT 12:43
PROVIDERS: ATTEND Nurse Practitioner Family
DX: J45.909 Unspecified asthma, uncomplicated (principal); E66.01 Morbid (severe) obesity due to excess calories
CPT/HCPCS: 94060; 94726; 94729

== ENCOUNTER 2018-05-01 19:45 | Outpatient (CLI) | payer MEDICAID ==
[~2018-05-01 19:45] MED LIST changes: -RT-ALBUTEROL SULF 2.5 MG/3 ML PRE-MIX VIAL INH ONE
== END 2018-05-02 05:45 | disposition home or self-care (01) ==
LOC: SLEEP 19:45
PROVIDERS: ATTEND Nurse Practitioner Family
DX: G47.34 Idiopathic sleep related nonobstructive alveolar hypoventilation (principal)
CPT/HCPCS: 95811

== ENCOUNTER 2018-05-03 13:53 | Observation (INO) | payer MEDICAID ==
[~2018-05-03] VITALS: Ht 157.5 cm; Wt 210.0 kg
[2018-05-03] VITALS (9 sets, daily range): BP systolic 114–164; BP diastolic 66–96
[2018-05-03] MEDS ORDERED: ASPIRIN 81 MG CHEW (CHILDREN'S ASA) PO ONE (14:00)
[2018-05-03 14:11] LABS: BASOPHILS % (AUTO) 0 % (0-10); EOSINOPHILS # (AUTO) 0.2 10^3/uL (0.0-0.3); EOSINOPHILS % (AUTO) 3 % (0-10); HEMATOCRIT 41 % (35-52); HEMOGLOBIN 13.3 G/DL (11.5-16.0); LYMPHOCYTES # (AUTO) 1.2 X 10^3 (1.0-4.0); LYMPHOCYTES % (AUTO) 13 % (12-44); MEAN CORPUSCULAR HEMOGLOBIN 30 PG (25-34); MEAN CORPUSCULAR HGB CONC 32 G/DL (32-36); MEAN CORPUSCULAR VOLUME 95 FL (80-99); MEAN PLATELET VOLUME 9.5 FL (7.4-10.4); MONOCYTES # (AUTO) 0.4 X 10^3 (0.0-1.0); MONOCYTES % (AUTO) 5 % (0-12); NEUTROPHILS % (AUTO) 79 % (42-75); PLATELET COUNT 218 10^3/uL (130-400); RED BLOOD COUNT 4.37 10^6/uL (4.35-5.85); WHITE BLOOD COUNT 8.9 10^3/uL (4.3-11.0)
[2018-05-03] MEDS ORDERED: NITROGLYCERIN 2% OINT 1 GM UNIT DOSE PACKET TOP ONE (14:15)
[2018-05-03 14:23] LABS: PROTHROMBIN TIME PATIENT 13.5 SEC (12.2-14.7)
--- NOTE | 2018-05-03 14:24 | ED Cardiac General ---
History of Present Illness General Chief Complaint: Chest Pain Stated Complaint: CP,FLUID BUILD UP ON LEGS Nursing Triage Note: ARRIVED VIA WC TO ROOM 01. COMPLAINS OF CHEST PAIN OFF AND ON SINCE 1000. Source: patient, old records History of Present Illness Date Seen by Provider: May 03, 2018 Time Seen by Provider: 13:56 Initial Comments PT ARRIVES VIA POV, NEEDING WHEELCHAIR TO GET TO ROOM PT C/O CHEST PAIN IN CENTER OF CHEST SINCE 10:00 AM TODAY--BEGAN WHILE SITTING IN BED C/O INCREASED LEG SWELLING PT STATES SHE HAS HISTORY OF CHF AND CAD, PT HAS HAD CARDIAC STENTS X 2 PT IS SHORT OF BREATH, WHICH IS CHRONIC, ESPECIALLY ON EXERTION, BUT DOES NOT WEAR HOME O2--STATES SHORTNESS OF BREATH IS NO WORSE THAN NORMAL NO NAUSEA/VOMITING NO SWEATS. PT DOES NOT HAVE NTG AT HOME PCP: CELIA AMOR STRAW BOSS: DR. POWERS, HAD ROUTINE APPOINTMENT ON MONDAY, NO CHANGES IN MEDICATIONS. Allergies and Home Medications Allergies Coded Allergies: sulfamethoxazole (Unverified Allergy, Unknown, 11/14/17) trimethoprim (Unverified Allergy, Unknown, 04/23/06) Home Medications Albuterol Sulfate 6.7 Gm Hfa.aer.ad, 2 PUFF IH EVERY 4-6 HOURS PRN for SHORTNESS OF BREATH, (Reported) Aspirin 81 Mg Tablet., 81 MG PO DAILY, (Reported) Cephalexin 500 Mg Tablet, 500 MG PO TID Prescribed by: CANDY KULKARNI on 11/14/172226 Cephalexin 500 Mg Capsule, 500 MG PO QIDPCHS Prescribed by: BANDAR REESE on 01/20/18 0342 Clopidogrel Bisulfate 75 Mg Tablet, 75 MG PO DAILY, (Reported) Cyclobenzaprine HCl 10 Mg Tablet, 10 MG PO HS, (Reported) Duloxetine HCl 60 Mg Capsule., 60 MG PO DAILY, (Reported) Gabapentin 300 Mg Capsule, 300 MG PO HS, (Reported) Levothyroxine Sodium 75 Mcg Tablet, 75 MCG PO DAILY, (Reported) Metolazone 2.5 Mg Tablet, 2.5 MG PO DAILY, (Reported) Metoprolol Tartrate 50 Mg Tablet, 50 MG PO BID, (Reported) Mupirocin 22 Gm Oint...g., 22 GM TP UD, (Reported) APPLY TO AFFECTED AREAS EVERY OTHER DAY Omeprazole 20 Mg Capsule.dr, 20 MG PO DAILY, (Reported) Potassium Chloride 20 Meq Tablet.er, 20 MEQ PO DAILY, (Reported) Ropinirole HCl 4 Mg Tablet, 4 MG PO DAILY@1900, (Reported) TAKES 1-3 HOURS PRIOR TO BEDTIME Sacubitril/Valsartan 1 Each Tablet, 1 EACH PO BID, (Reported) Simvastatin 20 Mg Tablet, 20 MG PO HS, (Reported) Patient Home Medication List Home Medication List Reviewed: Yes Review of Systems Constitutional: no symptoms reported Respiratory: See HPI, Orthopnea, Shortness of Air, SOA With Exertion, SOA at Rest Cardiovascular: See HPI, Chest Pain, Edema Gastrointestinal: No Symptoms Reported Genitourinary: No Symptoms Reported Musculoskeletal: other (CHRONIC RIGHT LOWER LEG WOUND WITH CHRONIC DRAINAGE) Skin: other ( ABOVE) Psychiatric/Neurological: No Symptoms Reported Endocrine: No Symptoms Reported Hematologic/Lymphatic: No Symptoms Reported Past Hoidgwt-Bnppyx-Hliyhs Hx Patient Social History Alcohol Use: Denies Use Recreational Drug Use: No Smoking Status: Never a Smoker Recent Foreign Travel: No Contact w/Someone Who Travel: No Recent Infectious Disease Expo: No Recent Hopitalizations: No Immunizations Up To Date PED Vaccines UTD: No Date of Influenza Vaccine: Aug 20, 2012 Seasonal Allergies Seasonal Allergies: No Past Medical History Surgeries: Yes (CARDIAC CATH--STENTS X 2 07/2016--LAST CATH 05/14/17--PATENT STENTS, SEVERE CARDIOMYOPATHY WITH EF 20%; RIGHT KNEE SCOPE; EGD 08/2017) Cardiac, Section, Coronary Stent, Gallbladder, Orthopedic Respiratory: Yes Asthma, Sleep Apnea Currently Using BIPAP: No Cardiac: Yes (LBBB, CHF; LAST CATH 05/14/17; HAS HAD STENTS X 2) Cardiomyopathy, Chronic Edema/Swelling, Coronary Artery Disease, High Cholesterol, Hypertension Neurological: No (RESTLESS LEGS) Reproductive Disorders: No Female Reproductive Disorders: Denies Sexually Transmitted Disease: No Genitourinary: Yes Renal Failure Gastrointestinal: Yes (LAST EGD 08/2017) Gastroesophageal Reflux, Esophagitis, Hiatal Hernia, Ulcer Musculoskeletal: Yes (KNEE PAIN --RIGHT KNEE SCOPE; RESTLESS LEGS) Chronic Back Pain Endocrine: Yes (borderline diabetes, morbid obesity) Hypothyroidsim HEENT: No Cancer: No Psychosocial: Yes Sleep Difficulties, Anxiety Integumentary: Yes ( CELLULITIS OF LEGS, CHRONIC) Blood Disorders: No Adverse Reaction/Blood Tranf: No Family Medical History FH: COPD (chronic obstructive pulmonary disease) 19 MOTHER FH: congestive heart failure 19 MOTHER FH: renal failure 19 MOTHER Vascular Disease Physical Exam Vital Signs Vital Signs - First Documented 05/03/18 13:55 Temp 98.0 Pulse 113 Resp 20 B/P (MAP) 189/109 (135) Pulse Ox 95 O2 Delivery Room Air Capillary Refill : Less Than 3 Seconds General Appearance: Mild Distress (VERY DYSPNEIC IN TRANSFER FROM WHEELCHAIR ONTO ER CART, THEN IMPROVED ONCE PT SETTLED INTO BED ), Obese (MORBIDLY), Other (MALDOROUS) HEENT: PERRL/EOMI, Other (POOR DENTITION, MISSING FRONT TEETH) Neck: Non Tender Respiratory: Respiratory Distress (VERY DYSPNEIC ON ARRIVAL), Other (VERY DIFFICULT TO AUSCULTATE HEART OR LUNG SOUNDS DUE TO BODY HABITUS) Cardiovascular: Tachycardia (MILD 110'S) Gastrointestinal: Soft Extremity: Other (UNABLE TO DETERMINE IF EDEMA IS PRESENT DUE TO BODY HABITUS) Neurologic/Psychiatric: Alert, Oriented x3, Normal Mood/Affect Skin: Normal Color, Warm/Dry, Other (CHRONIC WOUNDS TO LEGS--WEEPING SEROUS FLUID FROM R LOWER LEG; CHRONIC VENOUS STASIS CHANGES BILATERALLY) Progress/Results/Core Measures Results/Orders Lab Results Laboratory Tests Test 05/03/18 14:00 Range/Units White Blood Count 8.9 4.3-11.0 10^3/uL Red Blood Count 4.37 4.35-5.85 10^6/uL Hemoglobin 13.3 11.5-16.0 G/DL Hematocrit 41 35-52 % Mean Corpuscular Volume 95 80-99 FL Mean Corpuscular Hemoglobin 30 25-34 PG Mean Corpuscular Hemoglobin Concent 32 32-36 G/DL Red Cell Distribution Width 14.0 10.0-14.5 % Platelet Count 218 130-400 10^3/uL Mean Platelet Volume 9.5 7.4-10.4 FL Neutrophils (%) (Auto) 79 H 42-75 % Lymphocytes (%) (Auto) 13 12-44 % Monocytes (%) (Auto) 5 0-12 % Eosinophils (%) (Auto) 3 0-10 % Basophils (%) (Auto) 0 0-10 % Neutrophils # (Auto) 7.0 1.8-7.8 X 10^3 Lymphocytes # (Auto) 1.2 1.0-4.0 X 10^3 Monocytes # (Auto) 0.4 0.0-1.0 X 10^3 Eosinophils # (Auto) 0.2 0.0-0.3 10^3/uL Basophils # (Auto) 0.0 0.0-0.1 10^3/uL Prothrombin Time 13.5 12.2-14.7 SEC INR Comment 1.0 0.8-1.4 Activated Partial Thromboplast Time 28 24-35 SEC Sodium Level 138 135-145 MMOL/L Potassium Level 4.4 3.6-5.0 MMOL/L Chloride Level 106 98-107 MMOL/L Carbon Dioxide Level 22 21-32 MMOL/L Anion Gap 10 5-14 MMOL/L Blood Urea Nitrogen 16 7-18 MG/DL Creatinine 1.31 H 0.60-1.30 MG/DL Estimat Glomerular Filtration Rate 45 BUN/Creatinine Ratio 12 Glucose Level 112 H 70-105 MG/DL Calcium Level 9.4 8.5-10.1 MG/DL Magnesium Level 2.0 1.8-2.4 MG/DL Total Bilirubin 0.6 0.1-1.0 MG/DL Aspartate Amino Transf (AST/SGOT) 13 5-34 U/L Alanine Aminotransferase (ALT/SGPT) 10 0-55 U/L Alkaline Phosphatase 87 40-136 U/L Total Creatine Kinase 23 L 29-168 U/L Creatine Kinase MB 1.5 <6.6 NG/ML Troponin I < 0.30 <0.30 NG/ML B-Type Natriuretic Peptide 92.6 <100.0 PG/ML Total Protein 8.3 H 6.4-8.2 GM/DL Albumin 3.8 3.2-4.5 GM/DL Amylase Level 42 25-125 U/L Lipase 30 8-78 U/L Serum Test, Qualitative NEGATIVE NEGATIVE My Orders Orders - YOUSIF PRAKASH DO Ekg Tracing (05/03/18 13:54) Amylase (05/03/18 13:56) Cbc With Automated Diff (05/03/18 13:56) Comprehensive Metabolic Panel (05/03/18 13:56) Creatine Kinase (05/03/18 13:56) Creatine Kinase Mb (05/03/18 13:56) Lipase (05/03/18 13:56) Partial Thromboplastin Time (05/03/18 13:56) Protime With Inr (05/03/18 13:56) Troponin I (05/03/18 13:56) Chest 1 View, Ap/Pa Only (05/03/18 13:56) O2 (05/03/18 13:56) Aspirin Chewable Tablet (Baby Aspirin Ch (05/03/18 14:00) BNP (05/03/18 13:56) Monitor-Rhythm Ecg Trace Only (05/03/18 13:56) Hcg,Qualitative Serum (05/03/18 13:56) Magnesium (05/03/18 13:56) Nitroglycerin Ointment (Nitrobid Ointme (05/03/18 14:15) Medications Given in ED Current Medications Medications Dose Ordered Sig/Harvey Route Start Time Stop Time Status Last Admin Dose Admin Aspirin 324 mg ONCE ONCE PO 05/03/18 14:00 05/03/18 14:01 DC 05/03/18 14:17 324 MG Nitroglycerin 1 inch ONCE ONCE TOP 05/03/18 14:15 05/03/18 14:16 DC 05/03/18 14:17 1 INCH Vital Signs/I&O 05/03/18 13:55 Temp 98.0 Pulse 113 Resp 20 B/P (MAP) 189/109 (135) Pulse Ox 95 O2 Delivery Room Air Blood Pressure Mean: 135 Progress Progress Note : Progress Note CHEST PAIN GONE AND BP DOWN WITH NITROPASTE UNEVENTFUL ER STAY Initial ECG Impression Date: May 03, 2018 Initial ECG Impression Time: 13:59 Initial ECG Rate: 107 Initial ECG Rhythm: S.Tach (LBBB, PAC) Diagnostic Imaging Comments CXR--CENTRAL CONGESTION, PER RADIOLOGIST REPORT @ 1513 Reviewed: Reviewed by Me Departure Communication (Admissions) 1505--SPOKE WITH DR. MELCHOR, ACCEPTS PT FOR ADMIT. WOULD LIKE CARDIOLOGY CONSULT. 1508--PAGING DR. POWERS 0930--CALLED DR. POWERS'S OFFICE, HE IS OUT OF TOWN. DR. TROY IS SEED PELLETER 1530--SPOKE WITH DR. TROY, INFORMED OF CONSULT 1541--DR. TROY HERE TO SEE PT Impression Primary Impression: Chest pain Additional Impressions: CHF (congestive heart failure) Hx of coronary artery disease HTN (hypertension) MORBID OBESITY Disposition: 09 ADMITTED INPATIENT Condition: Improved Admissions Decision to Admit Reason: Admit from ER (General) Decision to Admit/Date: May 03, 2018 Time/Decision to Admit Time: 15:05 Departure-Patient Inst. Referrals: [facility] (PCP) Primary Care Physician PIPPA DIMAS (Family) Primary Care Physician YOUSIF PRAKASH DO May 03, 2018 14:24
[2018-05-03 14:32] LABS: ALANINE AMINOTRANSFERASE 10 U/L (0-55); ALBUMIN 3.8 GM/DL (3.2-4.5); ALKALINE PHOSPHATASE 87 U/L (40-136); AMYLASE 42 U/L (25-125); BILIRUBIN,TOTAL 0.6 MG/DL (0.1-1.0); BUN/CREATININE RATIO 12; CALCIUM 9.4 MG/DL (8.5-10.1); CARBON DIOXIDE 22 MMOL/L (21-32); CHLORIDE 106 MMOL/L (98-107); CREATINE KINASE 23 U/L (29-168); CREATININE SERUM 1.31 MG/DL (0.60-1.30); GFR ESTIMATED 45; GLUCOSE 112 MG/DL (70-105); LIPASE 30 U/L (8-78); POTASSIUM 4.4 MMOL/L (3.6-5.0); SODIUM 138 MMOL/L (135-145); TOTAL PROTEIN 8.3 GM/DL (6.4-8.2)
[2018-05-03 14:38] LABS: CREATINE KINASE MB 1.5 NG/ML (<6.6)
--- NOTE | 2018-05-03 15:08 | Diagnostic Imaging Report ---
Indication: Chest pain. Time of exam: 2:29 PM Correlation is made with prior study from 07/25/2017. The study is somewhat compromised due to portable technique and patient body habitus. There appears to be some central congestion. No overt failure is seen. No infiltrate or effusion is detected. There is no pneumothorax. Impression: Central congestion. Dictated by: Dictated on workstation # [id number]
[2018-05-03] MEDS ORDERED: FUROSEMIDE 40 MG/4 ML INJ (LASIX) IVP ONE (15:15)
--- NOTE | 2018-05-03 16:53 | Consultation-Cardiology ---
HPI-Cardiology Cardiology Consultation Date of Consultation 05/03/18 Date of Admission Time Seen by Provider: 15:30 Indication: Chest pain HPI 42 years old lady with history of coronary artery disease, morbid obesity, hypertension hyperlipidemia, started having chest pain described it as dull achiness in the upper retrosternal area not radiating, has underlying shortness of breath, has been noticing worsening pedal edema with ulceration on her right leg. Came into the emergency room and given sublingual nitroglycerin which improved her blood pressure and chest pain, currently laying down in bed, feeling better, slight discomfort in the upper retrosternal area. She denied any palpitation, syncope or near syncopal episodes. Denied any claudications. Home Medications & Allergies Allergies: Coded Allergies: sulfamethoxazole (Unverified Allergy, Unknown, 11/14/17) trimethoprim (Unverified Allergy, Unknown, 04/23/06) Home Medication List Reviewed: Yes RNI-Xyocfb-Qtefip Hx Patient Social History Marital Status: Employed/Student: unemployed Alcohol Use: Denies Use Recreational Drug Use: No Smoking Status: Never a Smoker Recent Foreign Travel: No Recent Infectious Disease Expo: No Recent Hopitalizations: No Immunizations Up To Date Date of Influenza Vaccine: Aug 20, 2012 Past Medical History Past medical history as described below Family Medical History Significant Family History: Heart Disease, Vascular Disease Family History: FH: COPD (chronic obstructive pulmonary disease) 19 MOTHER FH: congestive heart failure 19 MOTHER FH: renal failure 19 MOTHER Constitutional: see HPI, diaphoresis, malaise, weakness, weight gain EENTM: see HPI, no symptoms reported Respiratory: No no symptoms reported; see HPI; No cough, No dyspnea on exertion , No hemoptysis, No orthopnea; phlegm; No short of breath, No stridor; wheezing , other Cardiovascular: see HPI, chest pain, edema; No Hx of Intervention, No palpitations, No syncope, No vascular heart diseas, No other Gastrointestinal: no symptoms reported, see HPI Genitourinary: no symptoms reported, see HPI Musculoskeletal: no symptoms reported, see HPI Skin: no symptoms reported, see HPI Psychiatric/Neurological: No Symptoms Reported, See HPI Reviewed Test Results Reviewed Test Results Lab Laboratory Tests Test 05/03/18 14:00 Range/Units White Blood Count 8.9 4.3-11.0 10^3/uL Red Blood Count 4.37 4.35-5.85 10^6/uL Hemoglobin 13.3 11.5-16.0 G/DL Hematocrit 41 35-52 % Mean Corpuscular Volume 95 80-99 FL Mean Corpuscular Hemoglobin 30 25-34 PG Mean Corpuscular Hemoglobin Concent 32 32-36 G/DL Red Cell Distribution Width 14.0 10.0-14.5 % Platelet Count 218 130-400 10^3/uL Mean Platelet Volume 9.5 7.4-10.4 FL Neutrophils (%) (Auto) 79 H 42-75 % Lymphocytes (%) (Auto) 13 12-44 % Monocytes (%) (Auto) 5 0-12 % Eosinophils (%) (Auto) 3 0-10 % Basophils (%) (Auto) 0 0-10 % Neutrophils # (Auto) 7.0 1.8-7.8 X 10^3 Lymphocytes # (Auto) 1.2 1.0-4.0 X 10^3 Monocytes # (Auto) 0.4 0.0-1.0 X 10^3 Eosinophils # (Auto) 0.2 0.0-0.3 10^3/uL Basophils # (Auto) 0.0 0.0-0.1 10^3/uL Prothrombin Time 13.5 12.2-14.7 SEC INR Comment 1.0 0.8-1.4 Activated Partial Thromboplast Time 28 24-35 SEC Sodium Level 138 135-145 MMOL/L Potassium Level 4.4 3.6-5.0 MMOL/L Chloride Level 106 98-107 MMOL/L Carbon Dioxide Level 22 21-32 MMOL/L Anion Gap 10 5-14 MMOL/L Blood Urea Nitrogen 16 7-18 MG/DL Creatinine 1.31 H 0.60-1.30 MG/DL Estimat Glomerular Filtration Rate 45 BUN/Creatinine Ratio 12 Glucose Level 112 H 70-105 MG/DL Calcium Level 9.4 8.5-10.1 MG/DL Magnesium Level 2.0 1.8-2.4 MG/DL Total Bilirubin 0.6 0.1-1.0 MG/DL Aspartate Amino Transf (AST/SGOT) 13 5-34 U/L Alanine Aminotransferase (ALT/SGPT) 10 0-55 U/L Alkaline Phosphatase 87 40-136 U/L Total Creatine Kinase 23 L 29-168 U/L Creatine Kinase MB 1.5 <6.6 NG/ML Troponin I < 0.30 <0.30 NG/ML B-Type Natriuretic Peptide 92.6 <100.0 PG/ML Total Protein 8.3 H 6.4-8.2 GM/DL Albumin 3.8 3.2-4.5 GM/DL Amylase Level 42 25-125 U/L Lipase 30 8-78 U/L Serum Test, Qualitative NEGATIVE NEGATIVE Physical Exam Vital Signs Vital Signs - First Documented 05/03/18 13:55 Temp 98.0 Pulse 113 Resp 20 B/P (MAP) 189/109 (135) Pulse Ox 95 O2 Delivery Room Air Capillary Refill : Less Than 3 Seconds General Appearance: WD/WN, Moderate Distress Eyes: Bilateral Eye Normal Inspection, Bilateral Eye PERRL, Bilateral Eye EOMI HEENT: PERRL/EOMI, TMs Normal, Normal ENT Inspection, Pharynx Normal Neck: Full Range of Motion, Normal Inspection, Non Tender, Supple, Carotid Bruit Respiratory: Chest Non Tender, Lungs Clear, Normal Breath Sounds, No Accessory Muscle Use, No Respiratory Distress Cardiovascular: Regular Rate, Rhythm, No Edema, No Gallop, No JVD, No Murmur, Normal Peripheral Pulses Gastrointestinal: Normal Bowel Sounds, No Organomegaly, No Pulsatile Mass, Non Tender, Soft Back: Normal Inspection, No CVA Tenderness, No Vertebral Tenderness Extremity: Normal Capillary Refill, Normal Inspection, Normal Range of Motion, Non Tender, No Calf Tenderness, No Pedal Edema Neurologic/Psychiatric: Alert, Oriented x3, No Motor/Sensory Deficits, Normal Mood/Affect Skin: Normal Color, Warm/Dry Lymphatic: No Adenopathy A/P-Cardiology Admission Diagnosis Chest pain nonspecific etiology Labile hypertension Coronary artery disease Hyperlipidemia Assessment/Plan Chest pain nonspecific etiology, resembling angina, reporting improvement at this time. Continue to monitor EKG and cardiac enzymes. Baseline left bundle branch block which has been persistent. Labile hypertension, poorly controlled blood pressure, restart home medication monitor blood pressure Lymphedema, bilateral edema with ulcer on the right leg, has been seen by Dr. Trejo and referred for lymphedema clinic in [place], scheduled to go to the clinic tomorrow morning Coronary artery disease. History of cardiac catheterization in July 2016 showing severe disease at the LAD and right coronary artery had a stent placed to the right coronary artery using Promus Premier 3 x18 mm and a stent to the LAD using 2.7516 mm Promus Premier with excellent results, done by Dr. Adkins, repeat cardiac catheterization showed patent stents with small vessel disease nonobstructive disease. Dilated cardiomyopathy with global hypokinesis and left ventricular ejection fraction 25 to 30%. Per cardiac cath of 08-16-16, during cardiac catheterization and her ejection fraction was 20-25 percent, echocardiogram showed ejection fraction 50 percent done in 2012, I will repeat 2-D echocardiogram. Hypothyroidism, being treated with thyroid replacement and managed by her PCP Morbid obesity with a BMI of 81 H/O nocturnal hypoxemia for which she is on nocturnal home oxygen Suspected NAVA, COPD. Hyperlipidemia, monitor lipids JANNY TROY MD May 03, 2018 16:52
[2018-05-03] MEDS ORDERED: morphine INJ 4 MG/ML 1 ML (VIAL/SYRINGE) IV PRN (18:15)
[2018-05-03] MEDS ORDERED: CATHETER FLUSH 10 ML SYR IV PRN (18:15)
[2018-05-03] MEDS ORDERED: NITROGLYCERIN 0.4 MG SL TABS BTL 25'S SL PRN (18:15)
[2018-05-03] MEDS: NITROGLYCERIN 2% OINT 1 GM UNIT DOSE PACKET TOP SCH (19:01)
[2018-05-03 19:19] LABS: BILIRUBIN,URINE NEGATIVE (NEGATIVE); COLOR,URINE YELLOW; GLUCOSE, URINE (UA) NEGATIVE (NEGATIVE); KETONES,URINE NEGATIVE (NEGATIVE); LEUKOCYTE ESTERASE ,URINE 2+ (NEGATIVE); NITRITE,URINE NEGATIVE (NEGATIVE); PH,URINE 6 (5-9); PROTEIN,URINE NEGATIVE (NEGATIVE); UROBILINOGEN,URINE NORMAL (NORMAL)
[2018-05-03 19:31] LABS: BACTERIA,URINE LARGE /HPF; CLARITY,URINE VERY CLOUDY; SQUAMOUS EPITHELIAL CELL,UR >50 /HPF
--- OUTSIDE RECORDS SUMMARY | 2018-05-03 19:42 | XMS REPORT ---
Author Author PIPPA DIMAS [facility] Address [address] [place] [address] Care Team Providers Care Cigarette Maker Name Role Phone MADDIEArjun PIPPA Unavailable PROBLEMS Type Condition ICD9-CM Code VTM87-PO Code Onset Dates Condition Status SNOMED Code Problem Mixed hyperlipidemia E78.2 Active 550163180 Problem Stasis dermatitis without varicosities I87.2 Active 09481034 Problem Edema of both legs R60.0 Active 131107966 Problem Morbid (severe) obesity due to excess calories E66.01 Active 721948153 Problem Chronic pain syndrome G89.4 Active 986295677 Problem Dependence on supplemental oxygen Z99.81 Active 377922931246 Problem 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 Active 30427113 Problem Gastroesophageal reflux disease without esophagitis K21.9 Active 384319075 Problem Urge incontinence of urine N39.41 Active 87226056 Problem Restless legs syndrome G25.81 Active 762556931 Problem Essential hypertension I10 Active 58978069 Problem Chronic stasis dermatitis I83.10 Active 09655647 Problem Renal insufficiency N28.9 Active 452472185 Problem Acquired hypothyroidism E03.9 Active 021640664 Problem Lymphedema I89.0 Active 645691440 Problem Lumbar pain M54.5 Active 640639467 Problem Nocturnal hypoxia G47.34 Active [id number] ALLERGIES No Information ENCOUNTERS Encounter Location Date Diagnosis [facility] [address] [facility] [id number] [address] Feb, [facility] [address] [address] 9[address] Feb, [facility] [address] [id number] [address] 0423 Jan, [facility] [id number] [place] [address] 77113- 2763 28 Jan, 2018 [facility] [id number] [place] [address] 70861- 8918 Jan, Acquired hypothyroidism E03.9 ; Morbid (severe) obesity due to excess calories E66.01 ; Body mass index (BMI) 70 or greater, adult Z68.45 ; Cellulitis of left anterior lower leg L03.116 ; Restless legs syndrome G25.81 ; Nocturnal hypoxia G47.34 and Dependence on supplemental oxygen Z99.81 [facility] [id number] [place] [address] 31121- 0880 Jan, [facility] [id number] [place] [address] 34538- 3171 12 Dec, 2017 [facility] [id number] [place] [address] 29528- 3015 Oct, [facility] [id number] [place] [address] 75458- 9988 07 Oct, 2017 [facility] [id number] [place] [address] 88168- 0692 Sep, [facility] [id number] [place] [address] 55393- 1994 16 Sep, 2017 [facility] [id number] [place] [address] 20608- 3549 16 Sep, 2017 Dental examination Z01.20 [facility] [id number] [place] [address] 00044- 0233 Sep, Morbid obesity due to excess calories E66.01 ; Body mass index (BMI) of 70 or greater in adult Z68.45 ; Stasis dermatitis without varicosities I87.2 ; Lymphedema I89.0 ; Renal insufficiency N28.9 ; Acquired hypothyroidism E03.9 ; Cellulitis L03.90 ; Bronchitis J40 and BMI 40.0-44.9, adult Z68.41 [facility] [id number] [place] [address] 10622- 8383 Aug, [facility] [address] [facility] [id number] [id number] Aug, Dental examination Z01.20 [facility] [id number] [place] [address] 38137- 0010 Aug, [facility] [address], [place] [address]- 0994 26 Jul, 2017 [facility] [id number] [place] [address] 37996- 7712 Jul, [facility] [address] [facility] [id number] [place] [address] 37280- 8697 18 Jul, 2017 [facility] [id number] [place] [address] 47811- 4170 14 Jul, 2017 [facility] [id number] [place] [address] 76376- 5543 Jul, [facility] [id number] [place] [address] 93505- 7235 Jun, [facility] [address] [place] [address] 16941- 2777 Jun, Dependence on nocturnal oxygen therapy Z99.81 ; Morbid obesity due to excess calories E66.01 and Bronchitis J40 [facility] [address], [place] [address]- 4646 Jun, Restless legs syndrome G25.81 [facility] [address], [place] [address]- 8666 Jun, [facility] [id number] [place] [address] 26100- 1359 May, [facility] [id number] [place] [address] [id number] Apr, [facility] [address] [address] 2381 Apr, [facility] [id number] [place] [address] 79508- 2728 Apr, Essential hypertension I10 [facility] [id number] [place] [address] 56764- 0499 Apr, [facility] [facility] [id number] [place] [address] 66656- 3165 Apr, Chronic pain syndrome G89.4 and Urge incontinence of urine N39.41 [facility] [id number] [place] [address] 87933- 3653 March, Acquired hypothyroidism E03.9 [facility] [id number] [place] [address] 74533- 6541 March, [facility] [id number] [place] [address] 25359- 1052 March, [facility] [id number] [place] [address] 58799- 6476 March, Chronic pain syndrome G89.4 ; Essential hypertension I10 ; Chronic stasis dermatitis I83.10 ; Restless legs syndrome G25.81 ; Acquired hypothyroidism E03.9 ; Dependence on nocturnal oxygen therapy Z99.81 ; Mixed hyperlipidemia E78.2 ; Lymphedema I89.0 ; Gastroesophageal reflux disease without esophagitis K21.9 ; Morbid obesity due to excess calories E66.01 ; Cellulitis of left lower extremity L03.116 and Screening breast examination Z12.39 [facility] [address] [place] [address] 49334- 6621 March, [facility] [id number] [place] [address] 23859- 4153 Feb, [place] [id number] [place] [address] 90447- 7442 Feb, [place] [id number] [place] [address] 09019- 3840 Feb, Chronic pain syndrome G89.4 [facility] [id number] [place] [address] 82325 -4818 Feb, Right foot pain M79.671 and Right foot sprain, initial encounter S93.601A [facility] [address] [address]- 6638 Jan, [facility] [id number] [place] [address] 01358- 6963 Jan, [facility] [id number] [place] [address] 37636- 5433 Jan, Chronic pain syndrome G89.4 [facility] [id number] [place] [address] 80870- 1910 Jan, [facility] [id number] [place] [address] 84646- 8694 Dec, [facility] [facility] [id number] [place] [address] 39767- 6694 Dec, [facility] [facility] [id number] [place] [address] 61048- 5350 Dec, Pain in right knee M25.561 ; Pain in left knee M25.562 ; Essential hypertension I10 ; Chronic stasis dermatitis I83.10 ; Restless legs syndrome G25.81 ; Acquired hypothyroidism E03.9 ; Dependence on nocturnal oxygen therapy Z99.81 ; Mixed hyperlipidemia E78.2 ; Lymphedema I89.0 ; Chronic pain syndrome G89.4 ; Gastroesophageal reflux disease without esophagitis K21.9 and Urge incontinence of urine N39.41 [place] [address], [place] [address]- 8502 Nov, Mixed hyperlipidemia E78.2 [facility] [address], [place] [address]- 3789 Nov, [place] [id number] [place] [address] 63631- 2870 Nov, [facility] [address], [place] [address]- 6194 Nov, [facility] [address] [id number], [place] [address] Nov, Stasis ulcer, left I83.029 [facility] [address], [place] [address]- 8169 Nov, [facility] [address], [place] [address]- 2143 Oct, [facility] [address], [place] [address]- 0478 Oct, [facility] [address], [place] [address]- 8970 Oct, [facility] [address], [place] [address]- 8911 Sep, [facility] [address], [place] [address]- 6693 Sep, [address] [id number] Sep, [facility] [address], [place] [address]- 2832 Aug, [facility] [address], [place] [address]- 0042 Jul, [facility] [address] [address]- 2815 Jul, [facility] [address], [place] [address]- 1506 Jul, [facility] [address], [place] [address]- 4373 Jul, [facility] [address], [place] [address]- 4346 Jul, Chest pain, unspecified type R07.9 ; Dyspnea on exertion R06.09 ; Essential hypertension I10 ; Hyperlipidemia, unspecified hyperlipidemia type E78.5 ; Left bundle branch block I44.7 and Hypothyroidism, unspecified type E03.9 [facility] [id number] [place] [address] 50386 -6460 Jun, Fever, unspecified fever cause R50.9 ; Headache, unspecified headache type R51 ; SOB (shortness of breath) R06.02 and Strep pharyngitis J02.0 [facility] [id number] [place] [address] 64836- 0465 Jun, [facility] [address] 45064- 2364 Jun, [facility] [address] 22350- 2072 Jun, Essential hypertension I10 ; Mixed hyperlipidemia E78.2 and Acquired hypothyroidism E03.9 [facility] [id number] [place] [address] 73146- 4851 Jun, Edema of both legs R60.0 ; Hypoxia R09.02 and Essential hypertension I10 [facility] [address] 20592- 9944 Jun, [place] [address] 80519- 9332 Jun, Edema of both legs R60.0 ; Hypoxia R09.02 and Essential hypertension I10 [facility] [id number] [place] [address] 69251- 7992 Jun, Essential hypertension I10 ; Dependence on supplemental oxygen Z99.81 and Edema of both legs R60.0 [place] [id number] [place] [address] 06858- 5298 May, Lumbar pain M54.5 ; Essential hypertension I10 ; Edema of both legs R60.0 ; Stasis dermatitis without varicosities I87.2 and Left knee pain M25.562 [facility] [id number] [place] [address] 20206- 6818 May, [facility] [address] 40947- 9809 May, [facility] [address], [place] [address]- 0080 May, [facility] [id number] [place] [address] 62524- 4757 Apr, [facility] [address] [place] [address] 06633- 3434 Apr, [facility] [id number] [place] [address] 85944- 7534 March, [facility] [id number] [place] [address] 04770- 3383 March, Lymphedema I89.0 ; Morbid obesity due to excess calories E66.01 ; Alteration in mobility due to weakness R53.1 and Hypoxia R09.02 [facility] [facility] [id number] [place] [address] 57935- 5747 March, Abdominal wall mass R19.00 [facility] [facility] [id number] [place] [address] 56982- 1894 March, [facility] [id number] [place] [address] 53379- 8570 March, Abdominal wall mass R19.00 ; Lower abdominal pain R10.30 ; Alteration in mobility due to weakness R53.1 ; Hypoxia R09.02 and Lymphedema I89.0 [place] [address], [place] [address]- 0194 Feb, [facility] [address] [place] [address] 55137- 1590 Feb, Acquired hypothyroidism E03.9 ; Dependence on machine for supplemental oxygen V46.2 ; Restless legs syndrome G25.81 ; Essential hypertension I10 ; Renal insufficiency N28.9 ; Chronic stasis dermatitis I83.10 ; Mixed hyperlipidemia E78.2 ; Other chronic pain 338.29 and Cellulitis of left lower extremity L03.116 [place] [id number] [place] [address] 84186- 6867 Feb, [facility] [id number] [place] [address] 25436- 1591 Feb, [facility] [address] 86113 -1835 Feb, Shortness of breath R06.02 and Bronchitis J40 [place] [address] 80132- 2956 Jan, Dependence on supplemental oxygen Z99.81 [place] [address] 01677- 2345 Jan, [place] [address] 67611- 8261 Dec, [place] [address] 89370- 2796 Dec, [place] [address] 29615- 8929 Nov, Osteoarthritis of knees, bilateral M17.0 [place] [address] 34622- 2640 Nov, Dependence on machine for supplemental oxygen V46.2 ; Nocturnal hypoxia G47.34 and Urgency of urination R39.15 [place] [address] 57779- 3746 Nov, [place] [address] 55009- 4158 Oct, Pain in right knee M25.561 and Pain in left knee M25.562 [place] [facility] [address] 68620- 9972 Oct, Acquired hypothyroidism E03.9 ; Renal insufficiency N28.9 and Chronic stasis dermatitis I83.10 [place] [address] 46253- 8471 Oct, [place] [id number] [place] [address] 73415- 4807 Sep, Cellulitis L03.90 ; Left knee pain M25.562 ; Essential hypertension I10 ; Lymphedema I89.0 ; Lumbar pain M54.5 ; Morbid obesity due to excess calories E66.01 and Renal insufficiency N28.9 [facility] [id number] [place] [address] 54324- 4139 Sep, Cellulitis L03.90 and Lymphedema I89.0 [facility] [id number] [place] [address] 42526- 4025 Sep, [place] [address] 59139- 3201 Sep, [place] [id number] [place] [address] 73564- 8565 Sep, Left knee pain M25.562 ; Lumbar pain M54.5 ; Restless legs syndrome G25.81 ; Acquired hypothyroidism E03.9 and Essential hypertension I10 [place] [id number] [place] [address] 95623- 7994 Jul, [place] [id number] [place] [address] 75790- 8714 Jun, [facility] [id number] [place] [address] 42712- 9872 May, [place] [id number] [place] [address] 75435- 9324 May, [facility] [id number] [place] [address] 64679- 6595 May, Hypertension 997.91 ; Restless legs syndrome [RLS] 333.94 ; Unspecified venous (peripheral) insufficiency 459.81 ; Unspecified hypothyroidism 244.9 and Other chronic pain 338.29 [facility] [id number] [place] [address] 75145- 6181 Apr, [facility] [id number], [place] [address]- 1531 Apr, [facility] [address] [place] [address] 86378- 7817 Apr, Restless legs syndrome [RLS] 333.94 ; Shortness of breath 786.05 ; Unspecified venous (peripheral) insufficiency 459.81 ; Unspecified hypothyroidism 244.9 ; Obesity, unspecified 278.00 ; Other chronic pain 338.29 ; Hypertension 997.91 and Hyperlipidemia 272.4 [facility] [id number] [address]- 7700 Feb, [facility] [id number] [place] [address] 51432- 1728 Feb, [facility] [id number] [place] [address] 87376- 8516 Jan, [facility] [id number] [place] [address] 979828- 3614 Jan, [facility] [id number], [place] [address]- 4865 Jan, [facility] [id number] [place] [address] 74065- 4411 Jan, [facility] [address], [place] [address]- 5873 Jan, [facility] [address] [address]- 5579 Jan, [facility] [address], [place] [address]- 9320 Jan, [facility] [id number] [place] [address] 81396- 6189 Jan, [facility] [address] 0837 Jan, [facility] [address] 1507 Jan, [facility] [place] [facility] [address] [id number] [place] [address]- 3868 Jan, [facility] [place] [facility] [address] [id number] [place] [address]- 8099 Jan, [facility] [place] [facility] [address] [id number] [place] [address]- 1366 Jan, [facility] [place] [facility] [address] [id number] [place] [address]- 0659 Jan, [facility] [place] [facility] [address] [id number] [place] [address]- 3487 Dec, [facility] [place] [facility] [address] [id number] [place] [address]- 9145 Dec, [facility] [place] [facility] [address] [id number] [place] [address]- 1448 Nov, [facility] [place] [facility] [address] [id number] [place] [address]- 1846 Nov, [facility] [place] [facility] [address] [id number] [place] [address]- 1709 Nov, [facility] [place] [facility] [address] [id number] [place] [address]- 7189 Nov, [facility] [place] [facility] [address] [id number] [address]- 6109 Nov, [facility] [place] [facility] [address] [id number] [address]- 7120 Nov, [facility] [place] [facility] [address] [id number] [place] [address]- 8661 Nov, [facility] [place] [facility] [address] [id number] [place] [address]- 0997 Nov, [facility] [place] [facility] [address] [id number] [place] [address]- 6699 Nov, [facility] [place] [facility] [address] [id number] [address]- 8971 14 Nov, 2014 [facility] [place] [facility] [address] [id number] [place] [address]- 6815 14 Nov, 2014 [facility] [place] [facility] [address] [id number] [address]- 8648 Nov, [facility] [place] [facility] [address] [facility] [id number] [place] [address]- 6974 Nov, [facility] [place] [facility] [address] [id number] [place] [address]- 8754 Nov, [facility] [place] [facility] [id number] [place] [address], [place] [address]- 9346 Nov, [facility] [place] [facility] [address] [id number] [place] [address]- 6325 Nov, [facility] [place] [facility] [address] [facility] [id number] [address]- 3338 Oct, [facility] [place] [facility] [address] [id number] [place] [address]- 8627 Oct, [facility] [place] [facility] [address] [facility] [id number] [place] [address]- 7342 Sep, [facility] [place] [facility] [address] [facility] [id number] [address]- 5997 Aug, [facility] [place] [facility] [address] [id number] [address]- 0333 Aug, [facility] [place] [facility] [address] [id number], [place] [address]- 7996 Aug, [facility] [place] [facility] [address] [id number] [place] [address]- 7752 Aug, [facility] [place] [facility] [address] [facility] [id number] [address]- 7211 Aug, [facility] [place] [facility] [address] [facility] [id number] [address]- 0918 Aug, [facility] [place] [facility] [address] [id number] [place] [address]- 2656 Aug, [facility] [place] [facility] [address] [id number] [place] [address]- 9217 Aug, [facility] [place] [facility] [address] [id number] [place] [address]- 7204 Aug, [facility] [place] [facility] [address] [id number] [place] [address]- 2905 Aug, [facility] [place] [facility] [address] [id number] [place] [address] Jun, [facility] [place] [facility] [address] [id number] [place] [address] Jun, [facility] [place] [facility] [address] [id number] [place] [address] Jun, [facility] [place] [facility] [address] [id number] [place] [address] Jun, [facility] [place] [facility] [address] [id number] [place] [address] Jun, [facility] [place] [facility] [address] [id number] [place] [address] Jun, [facility] [place] [facility] [address] [id number] [place] [address] Jun, [facility] [place] [facility] [address] [id number] [place] [address] Jun, [facility] [place] [facility] [address] [id number] [place] [address] Jun, [facility] [place] [facility] [address] [id number] [place] [address] Jun, [facility] [place] [facility] [address] [id number] [place] [address] May, [facility] [place] [facility] [address] [id number] [place] [address] May, [facility] [place] [facility] [address] [id number] [place] [address] May, [facility] [place] [facility] [address] [id number] [place] [address] May, [facility] [place] [facility] [address] [id number] [place] [address] May, [facility] [place] [facility] [address] [id number] [place] [address] May, [facility] [place] [facility] [address] [id number] [place] [address] May, [facility] [place] [facility] [address] [id number] [place] [address] May, [facility] [place] [facility] [address] [id number] [place] [address] May, 2013 [facility] [place] [facility] [address] [id number] [place] [address] May, 2013 [facility] [place] [facility] [address] [id number] [place] [address] May, [facility] [place] [facility] [address] [id number] [place] [address] May, 2013 [facility] [place] [facility] [address] [id number] [place] [address] May, [facility] [place] [facility] [address] [id number] [place] [address] May, 2013 [facility] [place] [facility] [address] [id number] [place] [address] May, [facility] [place] [facility] [address] [id number] [place] [address] May, [facility] [place] [facility] [address] [id number] [place] [address] May, 2013 [facility] [place] [facility] [address] [id number] [place] [address] May, [facility] [place] [facility] [address] [id number] [place] [address] Apr, [facility] [place] [facility] [address] [id number] [place] [address] Apr, [facility] [place] [facility] [address] [id number] [place] [address] Apr, [facility] [place] [facility] [address] [id number] [place] [address] 0196 Apr, [facility] [place] [facility] [address] [id number] [place] [address] 9498 Apr, [facility] [place] [facility] [address] [id number] [place] [address] 0226 Apr, [facility] [place] [facility] [address] [id number] [place] [address] 2741 Apr, [facility] [place] [facility] [address] [id number] [place] [address] 3837 Apr, [facility] [place] [facility] [address] [id number] [place] [address] 5567 Apr, [facility] [place] [facility] [address] [id number] [place] [address] 7820 Apr, [facility] [place] [facility] [address] [id number] [place] [address] 3617 Apr, [facility] [place] [facility] [address] [id number] [place] [address] 5921 Apr, [facility] [place] [facility] [address] [id number] [place] [address] 4040 March, [facility] [place] [facility] [address] [id number] [place] [address] 4243 March, [facility] [place] [facility] [address] [id number] [place] [address] 9340 March, [facility] [place] [facility] [address] [id number] [place] [address] 1940 March, [facility] [place] [facility] [address] [id number] [place] [address] 1597 March, [facility] [place] [facility] [address] [id number] [place] [address] 5919 March, [facility] [place] [facility] [address] [id number] [place] [address] 5681 March, [facility] [place] [facility] [address] [id number] [place] [address] 8648 March, [facility] [place] [facility] [address] [id number] [place] [address] 1470 March, [facility] [place] [facility] [address] [id number] [place] [address] 4480 March, [facility] [place] [facility] [address] [id number] [place] [address] 7432 March, [facility] [place] [facility] [address] [id number] [place] [address]- 7794 Feb, [facility] [place] [facility] [address] [id number] [place] [address] 1848 Feb, [facility] [place] [facility] [address] [id number] [place] [address] 5126 Feb, [facility] [place] [facility] [address] [id number] [place] [address]- 8136 Feb, [facility] [place] [facility] [address] [id number] [place] [address]- 0356 Feb, [facility] [place] [facility] [address] [id number] [place] [address]- 6557 Feb, [facility] [place] [facility] [address] [id number] [place] [address] 7448 Feb, [facility] [place] [facility] [address] [id number] [place] [address]- 0676 Feb, [facility] [place] [facility] [address] [id number] [place] [address]- 1841 Feb, [facility] [place] [facility] [address] [id number] [place] [address]- 0169 Feb, [facility] [place] [facility] [address] [id number] [place] [address]- 4771 Feb, [facility] [place] [facility] [address] [id number] [place] [address] 1310 Feb, [facility] [place] [facility] [address] [id number] [place] [address]- 5645 Feb, [facility] [place] [facility] [address] [id number] [place] [address] 2970 Feb, [facility] [place] [facility] [address] [id number] [place] [address]- 6752 Feb, [facility] [place] [facility] [address] [id number] [place] [address]- 8550 Feb, [facility] [place] [facility] [address] [id number] [place] [address]- 8023 Feb, [facility] [place] [facility] [address] [id number] [place] [address]- 8431 Feb, [facility] [place] [facility] [address] [id number] [place] [address] 6640 Feb, [facility] [place] [facility] [address] [id number] [place] [address]- 4770 Feb, [facility] [place] [facility] [address] [id number] [place] [address]- 6738 Jan, [facility] [place] [facility] [address] [id number] [place] [address]- 6758 Jan, [facility] [place] [facility] [address] [id number] [place] [address]- 0114 Jan, [facility] [place] [facility] [address] [id number] [place] [address]- 3061 25 Jan, 2014 [facility] [place] [facility] [address] [id number] [place] [address]- 8816 24 Jan, 2014 [facility] [place] [facility] [address] [id number] [place] [address] 24 Jan, 2014 [facility] [place] [facility] [address] [id number] [place] [address]- 7343 18 Jan, 2014 [facility] [place] [facility] [address] [id number] [place] [address]- 3287 18 Jan, 2014 [facility] [place] [facility] [address] [id number] [place] [address]- 5946 14 Jan, 2014 [facility] [place] [facility] [address] [id number] [place] [address]- 0584 14 Jan, 2014 [facility] [place] [facility] [address] [id number] [place] [address] 9703 Jan, [facility] [place] [facility] [address] [id number] [place] [address]- 3250 Jan, [facility] [place] [facility] [address] [id number] [place] [address]- 4377 05 Jan, 2014 [facility] [place] [facility] [address] [id number] [place] [address]- 7595 Jan, [facility] [place] [facility] [address] [id number] [place] [address]- 3659 Dec, [facility] [place] [facility] [address] [id number] [place] [address]- 5316 Dec, [facility] [place] [facility] [address] [id number] [place] [address]- 1248 Dec, [facility] [place] [facility] [address] [id number] [place] [address]- 8796 Dec, [facility] [place] [facility] [address] [id number] [place] [address]- 5675 Dec, [facility] [address] [id number] [place] [address]- 5567 Dec, [facility] [place] [facility] [address] [id number] [place] [address]- 2994 Dec, [facility] [place] [facility] [address] [id number] [place] [address]- 5983 Dec, [facility] [place] [facility] [address] [id number] [place] [address]- 1568 Dec, [facility] [place] [facility] [address] [id number] [place] [address]- 9456 Nov, [facility] [place] [facility] [address] [id number] [place] [address]- 4283 Nov, [facility] [place] [facility] [address] [id number] [place] [address]- 5287 Nov, [facility] [place] [facility] [address] [id number] [place] [address]- 1478 Nov, [facility] [place] [facility] [address] [id number] [place] [address]- 8200 Oct, [facility] [place] [facility] [address] [id number] [place] [address]- 3357 Oct, [facility] [place] [facility] [address] [id number] [place] [address]- 7950 Oct, [facility] [place] [facility] [address] [id number] [place] [address]- 0736 Oct, [facility] [place] [facility] [address] [id number] [place] [address]- 3996 Oct, [facility] [place] [facility] [address] [id number] [place] [address]- 9593 Oct, [facility] [place] [facility] [address] [id number] [place] [address]- 6280 Oct, [facility] [place] [facility] [address] [id number] [place] [address]- 6316 23 Oct, 2012 [facility] [address] [id number] [place] [address]- 9706 20 Oct, 2013 [facility] [address] [id number] [place] 19 Oct, 2013 [facility] [address] [id number] [place] [address]- 5936 19 Oct, 2013 [facility] [address] [id number] [place] [address]- 7601 18 Oct, 2013 [facility] [address] [id number] [place] [address]30 18 Oct, 2013 [facility] [address] [id number] [place] [address]- 9601 17 Oct, 2013 [facility] [address] [id number] [place] [address]- 8385 17 Oct, 2013 [facility] [address] [id number] [place] [address]- 4126 17 Oct, 2013 [facility] [address] [id number] [place] [address]- 6252 17 Oct, 2013 [facility] [address] [id number] [place] [address]- 3194 17 Oct, 2013 [facility] [address] [id number] [place] [address]- 8199 17 Oct, 2013 [facility] [address] [id number] [place] [address]- 2463 11 Oct, 2013 [facility] [address] [id number] [place] [address]- 3842 11 Oct, 2013 [facility] [address] [id number] [place] [address]- 2445 27 Sep, 2013 [facility] [address] [id number] [place] [address]- 3031 Sep, [facility] [place] [facility] [address] [id number] [place] [address]- 1707 Sep, [facility] [place] [facility] [address] [id number] [place] [address]- 4261 Sep, [facility] [place] [facility] [address] [id number] [place] [address]- 5793 18 Sep, 2013 [facility] [place] [facility] [address] [id number] [place] [address]- 5364 Sep, [facility] [place] [facility] [address] [id number] [place] [address]- 1438 Sep, [facility] [place] [facility] [address] [id number] [place] [address]- 8409 Sep, [facility] [place] [facility] [address] [id number] [place] [address]- 8100 Sep, [facility] [place] [facility] [address] [id number] [place] [address]- 0496 Sep, [facility] [place] [facility] [address] [id number] [place] [address]- 3014 Sep, [facility] [place] [facility] [address] [id number] [address]- 3288 Sep, [facility] [place] [facility] [address] [id number], [place] [address]- 3367 Aug, [facility] [place] [facility] [address] [id number], [place] [address]- 9282 Aug, [facility] [place] [facility] [address] [id number] [place] [address]- 7418 Aug, [facility] [place] [facility] [address] [id number] [place] [address]- 6272 Aug, [facility] [place] [facility] [address] [id number], [place] [address]- 2552 Aug, [facility] [place] [facility] [address] [id number] [place] [address]- 2303 Aug, 2012 [facility] [place] [facility] [address] [id number] [place] [address]- 6128 Aug, 2012 [facility] [place] [facility] [address] [id number] [place] [address]- 4711 Aug, 2012 [facility] [place] [facility] [address] [id number] [place] [address]- 8446 16 Aug, 2012 [facility] [place] [facility] [address] [id number] [place] [address]- 8843 16 Aug, 2012 [facility] [place] [facility] [address] [id number] [place] [address]- 7154 10 Aug, 2012 [facility] [place] [facility] [address] [id number] [place] [address]- 8702 10 Aug, 2012 [facility] [place] [facility] [address] [id number] [place] [address]- 5141 08 Aug, 2012 [facility] [place] [facility] [address] [id number] [place] [address]- 2770 07 Aug, 2013 [facility] [place] [facility] [address] [id number] [place] [address]- 9358 04 Aug, 2013 [facility] [place] [facility] [address] [id number] [place] [address]- 0690 Aug, [facility] [place] [facility] [address] [id number] [place] [address]- 8932 Aug, [facility] [place] [facility] [address] [id number] [address]- 1259 Jul, [facility] [place] [facility] [address] [id number] [place] [address]- 2338 Jun, [facility] [place] [facility] [address] [id number] [place] [address]- 2424 Jun, [facility] [place] [facility] [address] [id number], [place] [address]- 2052 May, [facility] [place] [facility] [address] [id number] [place] [address]- 0566 May, [facility] [place] [facility] [address] [id number] [place] [address]- 4400 Apr, [facility] [place] [facility] [address] [id number] [place] [address]- 4065 Apr, [facility] [place] [facility] [address] [id number] [place] [address]- 3452 Apr, [facility] [place] [facility] [address] [id number] [place] [address]- 6972 Apr, [facility] [place] [facility] [address] [id number] [place] [address]- 1695 Apr, [facility] [place] [facility] [address] [id number] [place] [address]- 2870 Apr, [facility] [place] [facility] [address] [id number] [place] [address]- 1676 07 Apr, 2013 [facility] [place] [facility] [address] [id number] [place] [address]- 4699 07 Apr, 2013 [facility] [place] [facility] [address] [id number] [place] [address]- 8545 Apr, [facility] [place] [facility] [address] [id number] [place] [address]- 4716 Apr, [facility] [place] [facility] [address] [id number] [place] [address]- 4768 Apr, [facility] [place] [facility] [address] [id number] [place] [address]- 4348 March, [facility] [place] [facility] [address] [id number] [place] [address]- 9462 March, [facility] [place] [facility] [address] [id number] [place] [address]- 0376 March, [facility] [place] [facility] [address] [id number] [place] [address]- 1983 March, [facility] [address] [id number] [place] [address]- 1321 March, [facility] [address] [id number] [place] [address]- 3976 Feb, [facility] [address] [id number] [place] [address]- 0704 Feb, [facility] [address] [id number] [place] [address]- 2800 Jan, [facility] [address] [id number] [place] [address]- 7646 Jan, [facility] [address] [id number] [place] [address]- 1519 Jan, [facility] [address] [id number] [place] [address]- 9966 Jan, [facility] [address] [id number] [place] [address]- 5929 Jan, [facility] [address] [id number] [place] [address]- 3127 Dec, [facility] [place] [facility] [address] [id number] [place] [address]- 7306 Dec, [facility] [address] [id number], [place] [address]- 2172 Nov, [facility] [place] [facility] [address] [id number], [place] [address]- 3108 Nov, [facility] [place] [facility] [address] [id number] [place] [address]- 4656 Nov, [facility] [place] [facility] [address] [id number] [place] [address]- 7966 Nov, [facility] [place] [facility] [address] [id number] [place] [address]- 6856 Nov, [facility] [place] [facility] [address] [id number] [place] [address]- 9500 14 Nov, 2012 [facility] [address] [id number] [place] [address]- 3963 14 Nov, 2012 [facility] [address] [id number] [place] [address]- 0126 11 Nov, 2012 [facility] [address] [id number] [place] [address]- 8567 Nov, [facility] [address] [id number] [place] [address]- 2313 Nov, [facility] [address] [id number] [place] [address]- 5125 Nov, [facility] [address] [id number] [place] [address]- 4325 Oct, [facility] [address] [id number] [place] [address]- 3949 Oct, [facility] [address] [id number] [place] [address]- 7351 Sep, [facility] [address] [id number] [place] [address]- 1521 Sep, [facility] [address] [id number] [place] [address]- 1401 Sep, [facility] [address] [id number] [place] [address]- 4013 Sep, [facility] [address] [id number] [place] [address]- 0979 Sep, [facility] [address] [id number] [place] [address]- 9849 Sep, [facility] [address] [id number] [place] [address]- 4419 Sep, [facility] [address] [id number] [place] [address]- 4297 Sep, [facility] [place] [facility] [address] [id number] [place] [address]- 6554 Sep, [facility] [place] [facility] [address] [id number] [place] [address]- 9906 Sep, [facility] [place] [facility] [address] [id number] [place] [address]- 8832 Sep, [facility] [place] [facility] [address] [id number] [place] [address]- 4668 Sep, [facility] [place] [facility] [address] [id number] [place] [address]- 7446 Sep, [facility] [place] [facility] [address] [id number] [place] [address]- 8195 Sep, [facility] [place] [facility] [address] [facility] [id number] [place] [address]- 1985 Aug, [facility] [place] [facility] [address] [id number], [place] [address]- 0533 Aug, [facility] [place] [facility] [address] [facility] [id number], [place] [address]- 6939 Aug, [facility] [place] [facility] [address] [facility] [id number], [place] [address]- 0405 Aug, [facility] [place] [facility] [address] [facility] [id number] [address]- 4738 Aug, [facility] [place] [facility] [address] [id number], [place] [address]- 0010 Aug, [facility] [place] [facility] [address] [facility] [id number], [place] [address]- 6541 Aug, [facility] [place] [facility] [address] [facility] [id number], [place] [address]- 0884 Aug, [facility] [address] [facility] [id number] [address] Aug, [facility] [address] [id number][place] [address] Aug, [facility] [id number] [address] Aug, [facility] [id number] [address] Aug, [facility] [id number] [address] Aug, [facility] [id number] [place] [address] Aug, [facility] [id number] [place] [address] Aug, [facility] [id number] [place] [address] Aug, [facility] [id number] [address] Aug, [facility] [id number] [address] Jul, [facility] [id number] [address] Jun, [facility] [id number] [address] Aug, [facility] [id number] [address] Aug, [facility] [id number] [address] Aug, IMMUNIZATIONS No Known Immunizations SOCIAL HISTORY Never Assessed REASON FOR VISIT medication request PLAN OF CARE VITAL SIGNS MEDICATIONS Unknown Medications RESULTS No Results PROCEDURES No Known procedures INSTRUCTIONS MEDICATIONS ADMINISTERED No Known Medications MEDICAL (GENERAL) HISTORY Type Description Date Medical History Hypothyroidism Medical History hyperlipidemia Medical History obesity Medical History chronic pain Medical History mood disorder Medical History chronic renal insufficiency Medical History restless leg syndrome Medical History anxiety Medical History venous insufficiency Medical History hypertension Medical History edema Medical History oxygen dependent at (did not tolerate CPAP) Medical History sleep apnea/restrictive resp disease Medical History Obstructive sleep apnea (adult) (pediatric) Medical History Achilles bursitis or tendinitis Medical History Unspecified disorder of kidney and ureter Medical History hyperlipidemia Medical History Unspecified episodic mood disorder Medical History Other abnormal glucose Medical History 08/16/16 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
--- OUTSIDE RECORDS SUMMARY | 2018-05-03 19:43 | XMS REPORT ---
Author Author PIPPA DIMAS [facility] Address [address] [place] [address] Care Team Providers Care Outcomes Analyst Name Role Phone PIPPA DIMAS Unavailable PROBLEMS Type Condition ICD9-CM Code LXB50-AI Code Onset Dates Condition Status SNOMED Code Problem Dependence on nocturnal oxygen therapy Z99.81 Active 66024899209762 Problem Left knee pain M25.562 Active 95833240 Problem Essential hypertension I10 Active 96593371 Problem Lumbar pain M54.5 Active 862474973 Problem Restless legs syndrome G25.81 Active 637448980 Problem Acquired hypothyroidism E03.9 Active 838384420 Problem Chronic stasis dermatitis I83.10 Active 43513835 Problem Renal insufficiency N28.9 Active 257925741 Problem Edema of both legs R60.0 Active 406803070 Problem Morbid obesity due to excess calories E66.01 Active 325866510 Problem Stasis dermatitis without varicosities I87.2 Active 27491679 Problem Cellulitis L03.90 Active 930333347 Problem 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 Active 81499151 Problem Dependence on supplemental oxygen Z99.81 Active 088948794281 Problem 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 Active 04643362 Problem Morbid (severe) obesity due to excess calories E66.01 Active 393302477 Problem Bronchitis J40 Active 91239117 Problem Pain in right knee M25.561 Active 48090293 Problem Pain in left knee M25.562 Active 209273047170142 Problem Lymphedema I89.0 Active 756853099 Problem Urge incontinence of urine N39.41 Active 33453100 Problem Chronic pain syndrome G89.4 Active 085639079 Problem Body mass index (BMI) of 70 or greater in adult Z68.45 Active 801304054 Problem Gastroesophageal reflux disease without esophagitis K21.9 Active 333069304 Problem Mixed hyperlipidemia E78.2 Active 981287514 Problem Other chronic pain 338.29 Active 65597245 Problem Nocturnal hypoxia G47.34 Active 764658919 Problem Cellulitis of left lower extremity L03.116 Active 071636448 Problem Alteration in mobility due to weakness R53.1 Active 110941576 Problem Abdominal wall mass R19.00 Active 881894983 Problem Hypoxia R09.02 Active 995107857 Problem Lower abdominal pain R10.30 Active 68516602 ALLERGIES No Information ENCOUNTERS Encounter Location Date Diagnosis [place] [id number] [address] 27 Jan, 2018 [facility] [address] [address]- [address] Jan, [place] [address] 9[address]98- 5341 Dec, [place] [address] 9[address]22- 2811 15 Oct, 2017 [place] [address] 52607- 6322 07 Oct, 2017 [place] [address] 58632- 3746 Sep, [place] [address] [place] [id number] [place] [address] 46178- 8521 16 Sep, 2017 [place] [address] [place] [id number] [place] [address] 65979- 9411 16 Sep, 2017 Dental examination Z01.20 [place] [address] 9[address]04- 5632 01 Sep, 2017 Morbid obesity due to excess calories E66.01 ; Body mass index (BMI) of 70 or greater in adult Z68.45 ; Stasis dermatitis without varicosities I87.2 ; Lymphedema I89.0 ; Renal insufficiency N28.9 ; Acquired hypothyroidism E03.9 ; Cellulitis L03.90 ; Bronchitis J40 and BMI 40.0-44.9, adult Z68.41 [place] [address] 95369- 6714 Aug, [facility] [address] [id number] [id number] Aug, Dental examination Z01.20 [facility] [address], [place] [address] 9357 Aug, [facility] [address] [place] [address] 20009- 5664 Jul, [facility] [address] [place] [address] 76130- 4461 Jul, [facility] [address] [id number] [place] [address] 68468- 1372 18 Jul, 2017 [facility] [id number] [place] [address] 25472- 7606 Jul, [facility] [id number] [place] [address] 05361- 7092 Jul, [facility] [address] [place] [address] 89086- 8652 Jun, [facility] [id number] [place] [address] 84496- 2204 Jun, Dependence on nocturnal oxygen therapy Z99.81 ; Morbid obesity due to excess calories E66.01 and Bronchitis J40 [facility] [address] [place] [address] 09740- 5964 Jun, Restless legs syndrome G25.81 [facility] [address], [place] [address]- 3829 Jun, [facility] [id number] [place] [address] 49182- 4224 May, [facility] [address] [place] [id number] [place] [address] [id number] Apr, [facility] [address] [place] [address] 35275- 9767 Apr, [facility] [address], [place] [address]- 7614 Apr, Essential hypertension I10 [facility] [address] [place] [id number] [place] [address] 74344- 7562 Apr, [facility] [address] [place] [id number] [place] [address] 83125- 2669 13 Apr, 2017 Chronic pain syndrome G89.4 and Urge incontinence of urine N39.41 [facility] [address] [place] [id number] [place] [address] 98935- 3277 March, Acquired hypothyroidism E03.9 [place] [address] [place] [id number] [place] [address] 35834- 5266 March, [facility] [address] [id number] [place] [address] 11399- 3132 March, [place] [address] [place] [id number] [place] [address] 32894- 8200 March, Chronic pain syndrome G89.4 ; Essential [...] extremity L03.116 and Screening breast examination Z12.39 [place] [address] [place] [address] 54595- 9304 March, [facility] [address] [place] [id number] [place] [address] 23205- 4424 Feb, [place] [address] [place] [id number] [place] [address] 50175- 9717 Feb, [facility] [address] [place] [id number] [place] [address] 56748- 5871 Feb, Chronic pain syndrome G89.4 [facility] [id number] [place] [address] 71116 -4327 Feb, Right foot pain M79.671 and Right foot sprain, initial encounter S93.601A [place] [address] [place] [id number] [place] [address] 66695- 2956 Jan, [facility] [address] [place] [id number] [place] [address] 49164- 5099 Jan, [place] [address] [place] [id number] [place] [address] 62153- 4562 Jan, Chronic pain syndrome G89.4 [place] [address] [place] [id number] [place] [address] 68244- 0374 Jan, [place] [address] [place] [id number] [place] [address] 24212- 9804 Dec, [place] [address] [place] [id number] [place] [address] 62680- 1908 Dec, [place] [address] [place] [id number] [place] [address] 58346- 2322 Dec, Pain in right knee M25.561 ; Pain in left knee M25.562 ; Essential hypertension I10 ; Chronic stasis dermatitis I83.10 ; Restless legs syndrome G25.81 ; Acquired hypothyroidism E03.9 ; Dependence on nocturnal oxygen therapy Z99.81 ; Mixed hyperlipidemia E78.2 ; Lymphedema I89.0 ; Chronic pain syndrome G89.4 ; Gastroesophageal reflux disease without esophagitis K21.9 and Urge incontinence of urine N39.41 [place] [address] [place] [address] 58773- 0013 Nov, Mixed hyperlipidemia E78.2 [place] [address] [place] [id number] [place] [address] 74960- 0302 Nov, [place] [address] [place] [id number] [place] [address] 62376- 2042 Nov, [place] [address] [place] [id number] [place] [address] 95832- 0183 Nov, [facility] [id number] [address]33 Nov, Stasis ulcer, left I83.029 [facility] [address] [id number] [address]- 7731 Nov, [facility] [address], [place] [address]- 0979 Oct, [facility] [address], [place] [address]- 1845 Oct, [facility] [address], [place] [address]- 2186 Oct, [facility] [address], [place] [address]- 1489 Sep, [facility] [address], [place] [address]- 6418 Sep, [address] [id number] Sep, [facility] [address], [place] [address]- 8058 Aug, [facility] [address], [place] [address]- 0634 Jul, [facility] [address] [place] [id number] [address]- 5047 Jul, [facility] [address], [place] [address]- 2746 Jul, [facility] [address] [place] [id number] [address]- 5662 Jul, [facility] [address] [place] [id number] [address]- 3210 14 Jul, 2016 Chest pain, unspecified type R07.9 ; Dyspnea on exertion R06.09 ; Essential hypertension I10 ; Hyperlipidemia, unspecified hyperlipidemia type E78.5 ; Left bundle branch block I44.7 and Hypothyroidism, unspecified type E03.9 [facility] [address] [place] [address] 63704 -1465 Jun, Fever, unspecified fever cause R50.9 ; Headache, unspecified headache type R51 ; SOB (shortness of breath) R06.02 and Strep pharyngitis J02.0 [facility] [address] [place] [id number] [place] [address] 04498- 0021 Jun, [facility] [id number] [place] [address] 42934- 0810 Jun, [facility] [address] [id number] [place] [address] 32196- 7950 Jun, Essential hypertension I10 ; Mixed hyperlipidemia E78.2 and Acquired hypothyroidism E03.9 [facility] [address] [id number] [place] [address] 66501- 4856 Jun, Edema of both legs R60.0 ; Hypoxia R09.02 and Essential hypertension I10 [facility] [id number] [place] [address] 10598- 6145 Jun, [facility] [id number] [place] [address] 85150- 7909 Jun, Edema of both legs R60.0 ; Hypoxia R09.02 and Essential hypertension I10 [facility] [address] [place] [address] 52229- 2632 Jun, Essential hypertension I10 ; Dependence on supplemental oxygen Z99.81 and Edema of both legs R60.0 [facility] [id number] [place] [address] 02729- 8243 May, Lumbar pain M54.5 ; Essential hypertension I10 ; Edema of both legs R60.0 ; Stasis dermatitis without varicosities I87.2 and Left knee pain M25.562 [facility] [address] [place] [address] 92709- 3625 May, [facility] [id number] [address]- 5405 May, [facility] [address], [place] [address]- 8265 May, [facility] [address], [place] [address]- 8319 Apr, [facility] [address] [id number] [place] [address] 90330- 6528 Apr, [facility] [address] [place] [address] 65935- 7184 March, [place] [address] [place] [id number] [place] [address] 34741- 0609 March, Lymphedema I89.0 ; Morbid obesity due to excess calories E66.01 ; Alteration in mobility due to weakness R53.1 and Hypoxia R09.02 [place] [address] [place] [id number] [place] [address] 15213- 0374 March, Abdominal wall mass R19.00 [place] [address], [place] [address]- 7663 March, [place] [address] [place] [address] 11242- 2901 March, Abdominal wall mass R19.00 ; Lower abdominal pain R10.30 ; Alteration in mobility due to weakness R53.1 ; Hypoxia R09.02 and Lymphedema I89.0 [place] [address], [place] [address]- 3464 Feb, [facility] [address], [place] [address]- 5643 Feb, Acquired hypothyroidism E03.9 ; Dependence on machine for supplemental oxygen V46.2 ; Restless legs syndrome G25.81 ; Essential hypertension I10 ; Renal insufficiency N28.9 ; Chronic stasis dermatitis I83.10 ; Mixed hyperlipidemia E78.2 ; Other chronic pain 338.29 and Cellulitis of left lower extremity L03.116 [place] [address] [place] [id number] [place] [address] 23426- 9154 Feb, [facility] [address] 10023- 0673 Feb, [facility] [id number] [place] [address] 63337 -3221 Feb, Shortness of breath R06.02 and Bronchitis J40 [facility] [address] 61632- 1014 Jan, Dependence on supplemental oxygen Z99.81 [place] [address] 69286- 6081 Jan, [place] [address] 61243- 2188 Dec, [place] [address] 84156- 4010 Dec, [place] [address] 61548- 2545 Nov, Osteoarthritis of knees, bilateral M17.[address] 38937- 2460 Nov, Dependence on machine for supplemental oxygen V46.2 ; Nocturnal hypoxia G47.34 and Urgency of urination R39.[address] 61945- 6555 Nov, [address] 24116- 5103 Oct, Pain in right knee M25.561 and Pain in left knee M25.[address] 17110- 2401 Oct, Acquired hypothyroidism E03.9 ; Renal insufficiency N28.9 and Chronic stasis dermatitis I83.10 [place] [address] 63754- 4409 Oct, [facility] [id number] [place] [address] 56111- 4804 Sep, Cellulitis L03.90 ; Left knee pain M25.562 ; Essential hypertension I10 ; Lymphedema I89.0 ; Lumbar pain M54.5 ; Morbid obesity due to excess calories E66.01 and Renal insufficiency N28.9 [facility] [address] 49527- 1228 Sep, Cellulitis L03.90 and Lymphedema I89.0 [place] [address] 38379- 4160 Sep, [place] [address] 63342- 5074 Sep, [place] [address] 51598- 3811 Sep, Left knee pain M25.562 ; Lumbar pain M54.5 ; Restless legs syndrome G25.81 ; Acquired hypothyroidism E03.9 and Essential hypertension I10 [place] [address] 61232- 7539 Jul, [facility] [address] 00003- 9785 Jun, [place] [id number] [place] [address] 45838- 5442 May, [facility] [address] 00677- 8070 May, [facility] [address] 54296- 2532 May, Hypertension 997.91 ; Restless legs syndrome [RLS] 333.94 ; Unspecified venous (peripheral) insufficiency 459.81 ; Unspecified hypothyroidism 244.9 and Other chronic pain 338.29 [place] [address] 77371- 8267 Apr, [facility] [address], [place] [address]- 4420 Apr, [facility] [id number] [place] [address] 63630- 7438 Apr, Restless legs syndrome [RLS] 333.94 ; Shortness of breath 786.05 ; Unspecified venous (peripheral) insufficiency 459.81 ; Unspecified hypothyroidism 244.9 ; Obesity, unspecified 278.00 ; Other chronic pain 338.29 ; Hypertension 997.91 and Hyperlipidemia 272.4 [facility] [address], [place] [address]- 3066 Feb, [facility] [id number] [place] [address] 35555- 5211 Feb, [facility] [id number] [place] [address] 08618- 3555 Jan, [facility] [id number] [place] [address] 76640- 1144 Jan, [facility] [address], [place] [address]- 5370 Jan, [facility] [address] [place] [address] 10048- 4562 Jan, [facility] [address], [place] [address]- 8070 Jan, [facility] [address], [place] [address]- 9480 Jan, [facility] [address], [place] [address]- 8734 Jan, [facility] [address] 1032 Jan, [facility] [address] 3096 Jan, [facility] [id number] [place] [address] 81453- 0511 Jan, [facility] [place] [facility] [address] [id number] [place] [address]- 9156 Jan, [facility] [place] [facility] [address] [id number] [place] [address]- 1603 Jan, [facility] [place] [facility] [address] [id number] [place] [address]- 2586 Jan, [facility] [place] [facility] [address] [id number] [place] [address]- 2443 Jan, [facility] [place] [facility] [address] [id number] [place] [address]- 7642 Dec, [facility] [place] [facility] [address] [id number] [place] [address]- 3191 Dec, [facility] [place] [facility] [address] [id number] [place] [address]- 7949 Nov, [facility] [place] [facility] [address] [id number] [place] [address]- 9116 Nov, [facility] [place] [facility] [address] [id number] [place] [address]- 3913 Nov, [facility] [place] [facility] [address] [id number] [place] [address]- 3278 Nov, [facility] [place] [facility] [address] [id number] [place] [address]- 8968 Nov, [facility] [place] [facility] [address] [id number] [place] [address]- 4527 Nov, [facility] [place] [facility] [address] [id number] [place] [address]- 5951 Nov, [facility] [place] [facility] [address] [id number] [place] [address]- 6347 Nov, [facility] [place] [facility] [address] [id number] [place] [address]- 9606 Nov, [facility] [place] [facility] [address] [id number] [place] [address]- 1750 14 Nov, 2014 [facility] [place] [facility] [address] [id number] [place] [address]- 2412 14 Nov, 2014 [facility] [place] [facility] [address] [id number] [place] [address]- 9089 Nov, [facility] [place] [facility] [address] [id number] [place] [address]- 4600 Nov, [facility] [place] [facility] [address] [id number] [place] [address]- 7764 Nov, [facility] [place] [facility] [address] [id number] [place] [address]- 6576 Nov, [facility] [place] [facility] [address] [id number] [place] [address]- 7973 Nov, [facility] [place] [facility] [address] [id number] [place] [address]- 7690 Oct, [facility] [place] [facility] [address] [id number] [place] [address]- 6320 Oct, [facility] [place] [facility] [address] [id number] [place] [address]- 4418 Sep, [facility] [place] [facility] [address] [id number] [place] [address]- 3605 Aug, [facility] [place] [facility] [address] [id number] [place] [address]- 5745 Aug, [facility] [place] [facility] [address] [id number] [place] [address]- 9678 Aug, [facility] [place] [facility] [address] [id number] [place] [address]- 1684 Aug, [facility] [place] [facility] [address] [id number] [place] [address]- 7384 Aug, [facility] [place] [facility] [address] [id number] [place] [address]- 9111 Aug, [facility] [place] [facility] [address] [id number] [place] [address]- 0207 Aug, [facility] [place] [facility] [address] [id number] [place] [address]- 1187 Aug, [facility] [place] [facility] [address] [id number] [place] [address]- 7001 Aug, [facility] [place] [facility] [address] [id number] [place] [address]- 3521 Aug, [facility] [place] [facility] [address] [id number] [place] [address]- 7595 Jun, [facility] [place] [facility] [address] [id number] [place] [address]- 9189 Jun, [facility] [place] [facility] [address] [id number] [place] [address]- 1648 Jun, [facility] [place] [facility] [address] [id number] [place] [address]- 6569 Jun, [facility] [place] [facility] [address] [id number] [place] [address]- 1381 Jun, [facility] [place] [facility] [address] [id number] [place] [address]- 4345 Jun, [facility] [place] [facility] [address] [id number], [place] [address]- 6849 Jun, [facility] [place] [facility] [address] [id number], [place] [address]- 7877 Jun, [facility] [place] [facility] [address] [id number] [place] [address]- 3059 Jun, [facility] [place] [facility] [address] [id number], [place] [address]- 8436 Jun, [facility] [place] [facility] [address] [id number] [place] [address]- 8485 May, [facility] [place] [facility] [address] [id number] [place] [address] May, 2013 [facility] [place] [facility] [address] [id number] [place] [address] May, 2013 [facility] [place] [facility] [address] [id number] [place] [address] May, 2013 [facility] [place] [facility] [address] [id number] [place] [address] May, 2013 [facility] [place] [facility] [address] [id number] [place] [address] May, 2013 [facility] [place] [facility] [address] [id number] [place] [address] May, 2013 [facility] [place] [facility] [address] [id number] [place] [address] May, 2013 [facility] [place] [facility] [address] [id number] [place] [address] May, 2013 [facility] [place] [facility] [address] [id number] [place] [address] May, 2013 [facility] [place] [facility] [address] [id number] [place] [address] May, 2013 [facility] [place] [facility] [address] [id number] [place] [address] May, 2013 [facility] [place] [facility] [address] [id number] [place] [address] May, 2013 [facility] [place] [facility] [address] [id number] [place] [address] May, 2013 [facility] [place] [facility] [address] [id number] [place] [address] May, 2013 [facility] [place] [facility] [address] [id number] [place] [address] May, 2013 [facility] [place] [facility] [address] [id number] [place] [address] May, [facility] [place] [facility] [address] [id number] [place] [address] May, [facility] [place] [facility] [address] [id number] [place] [address] Apr, [facility] [place] [facility] [address] [id number] [place] [address] Apr, [facility] [place] [facility] [address] [id number] [place] [address] Apr, [facility] [place] [facility] [address] [id number] [place] [address] Apr, [facility] [place] [facility] [address] [id number] [place] [address] Apr, [facility] [place] [facility] [address] [id number] [place] [address] Apr, [facility] [place] [facility] [address] [id number] [place] [address] Apr, [facility] [place] [facility] [address] [id number] [place] [address] Apr, [facility] [place] [facility] [address] [id number] [place] [address] Apr, [facility] [place] [facility] [address] [id number] [place] [address] Apr, [facility] [place] [facility] [address] [id number] [place] [address] Apr, [facility] [place] [facility] [address] [id number] [place] [address] 2526 Apr, [facility] [place] [facility] [address] [id number] [place] [address] 2483 March, [facility] [place] [facility] [address] [id number] [place] [address] 5655 March, [facility] [place] [facility] [address] [id number] [place] [address] 1658 March, [facility] [place] [facility] [address] [id number] [place] [address] 4001 March, [facility] [place] [facility] [address] [id number] [place] [address]- 8637 March, [facility] [place] [facility] [address] [id number] [place] [address]- 5745 March, [facility] [place] [facility] [address] [id number] [place] [address]- 8872 March, [facility] [place] [facility] [address] [id number] [place] [address]- 3025 March, [facility] [place] [facility] [address] [id number] [place] [address] 2720 March, [facility] [place] [facility] [address] [id number] [place] [address]- 7865 March, [facility] [place] [facility] [address] [id number] [place] [address]- 8729 March, [facility] [place] [facility] [address] [id number] [place] [address]- 0774 Feb, [facility] [place] [facility] [address] [id number] [place] [address]- 0090 Feb, [facility] [place] [facility] [address] [id number] [place] [address]- 3888 Feb, [facility] [place] [facility] [address] [id number] [place] [address]- 7110 Feb, [facility] [place] [facility] [address] [id number] [place] [address]- 1188 Feb, [facility] [place] [facility] [address] [id number] [place] [address]- 9622 Feb, [facility] [place] [facility] [address] [id number] [place] [address]- 1057 Feb, [facility] [place] [facility] [address] [id number] [place] [address]- 0736 Feb, [facility] [address] [id number] [place] [address]- 0581 Feb, [facility] [place] [facility] [address] [id number] [place] [address]- 6580 Feb, [facility] [address] [id number] [place] [address]- 7830 Feb, [facility] [place] [facility] [address] [id number] [place] [address]- 2228 Feb, [facility] [address] [id number] [place] [address]- 9272 Feb, [facility] [place] [facility] [address] [id number] [place] [address]- 6641 Feb, [facility] [place] [facility] [address] [id number] [place] [address]- 9347 Feb, [facility] [address] [id number] [place] [address]- 1713 Feb, [facility] [place] [facility] [address] [id number] [place] [address]- 2115 Feb, [facility] [address] [id number] [place] [address]- 4747 Feb, [facility] [place] [facility] [address] [id number] [place] [address]- 0273 Feb, [facility] [place] [facility] [address] [id number] [place] [address]- 6839 Feb, [facility] [place] [facility] [address] [id number] [place] [address] Jan, [facility] [place] [facility] [address] [id number] [place] [address]- 8714 Jan, [facility] [place] [facility] [address] [id number] [place] [address] Jan, [facility] [place] [facility] [address] [id number] [place] [address]- 4953 Jan, [facility] [place] [facility] [address] [id number] [place] [address]- 5849 Jan, [facility] [place] [facility] [address] [id number] [place] [address]- 8992 Jan, [facility] [place] [facility] [address] [id number] [place] [address]- 8479 Jan, [facility] [place] [facility] [address] [id number] [place] [address]- 6421 Jan, [facility] [place] [facility] [address] [id number] [place] [address]- 4891 Jan, [facility] [place] [facility] [address] [id number] [place] [address]- 0543 Jan, [facility] [place] [facility] [address] [id number] [place] [address]- 2156 Jan, [facility] [place] [facility] [address] [id number] [place] [address]- 1484 Jan, [facility] [place] [facility] [address] [id number] [place] [address]- 9344 Jan, [facility] [place] [facility] [address] [id number] [place] [address]- 5314 Jan, [facility] [place] [facility] [address] [id number] [place] [address]- 4222 Dec, [facility] [place] [facility] [address] [id number] [place] [address]- 7900 Dec, [facility] [place] [facility] [address] [id number] [place] [address]- 7727 Dec, [facility] [place] [facility] [address] [id number] [place] [address]- 5865 Dec, [facility] [place] [facility] [address] [id number] [place] [address]- 9936 Dec, [facility] [address] [id number] [place] [address]- 5346 Dec, [facility] [place] [facility] [address] [id number] [place] [address]- 2546 Dec, [facility] [address] [id number] [place] [address]- 2616 Dec, [facility] [place] [facility] [address] [id number] [place] [address]- 2546 Dec, [facility] [address] [id number] [place] [address]- 1748 Nov, [facility] [address] [id number] [place] [address]- 2500 Nov, [facility] [address] [id number] [place] [address]- 0050 Nov, [facility] [address] [id number] [place] [address]- 8922 Nov, [facility] [address] [id number] [place] [address]- 1641 Oct, [facility] [address] [id number] [place] [address]- 8407 Oct, [facility] [place] [facility] [address] [id number] [place] [address] 2545 Oct, [facility] [place] [facility] [address] [id number] [place] [address] 2541 Oct, [facility] [place] [facility] [address] [id number] [place] [address] 2546 Oct, [facility] [place] [facility] [address] [id number] [place] [address]- 2546 Oct, [facility] [place] [facility] [address] [id number] [place] [address]- 2613 Oct, [facility] [address] [id number] [place] [address]- 2807 23 Oct, 2013 [facility] [place] [facility] [address] [id number] [place] [address]- 4903 20 Oct, 2013 [facility] [address] [id number] [place] [address]- 3902 19 Oct, 2013 [facility] [place] [facility] [address] [id number] [place] [address]- 0157 19 Oct, 2013 [facility] [address] [id number] [place] [address]- 5781 18 Oct, 2013 [facility] [address] [id number] [place] [address]- 2906 18 Oct, 2013 [facility] [address] [id number] [place] [address]- 8910 17 Oct, 2013 [facility] [place] [facility] [address] [id number] [place] [address]- 3076 17 Oct, 2013 [facility] [place] [facility] [address] [id number] [place] [address]- 2466 17 Oct, 2013 [facility] [place] [facility] [address] [id number] [place] [address]- 7043 17 Oct, 2013 [facility] [place] [facility] [address] [id number] [place] [address]- 3409 17 Oct, 2013 [facility] [place] [facility] [address] [id number], [place] [address]- 4784 17 Oct, 2013 [facility] [place] [facility] [address] [id number] [place] [address]- 1678 11 Oct, 2013 [facility] [place] [facility] [address] [id number] [place] [address]- 7096 11 Oct, 2013 [facility] [place] [facility] [address] [id number] [place] [address]- 9535 27 Sep, 2013 [facility] [place] [facility] [address] [id number] [place] [address]- 0943 Sep, [facility] [place] [facility] [address] [id number] [place] [address]- 8222 Sep, [facility] [place] [facility] [address] [id number] [place] [address]- 8548 Sep, [facility] [place] [facility] [address] [id number] [place] [address]- 5922 18 Sep, 2013 [facility] [place] [facility] [address] [id number] [place] [address]- 0771 Sep, [facility] [place] [facility] [address] [id number] [place] [address]- 2338 14 Sep, 2013 [facility] [place] [facility] [address] [id number] [place] [address]- 7234 Sep, [facility] [place] [facility] [address] [id number] [place] [address]- 7349 Sep, [facility] [place] [facility] [address] [id number] [place] [address]- 6785 Sep, [facility] [place] [facility] [address] [id number] [place] [address]- 9392 Sep, [facility] [place] [facility] [address] [facility] [id number] [place] [address]- 2321 Sep, [facility] [place] [facility] [address] [id number] [place] [address]- 7969 Aug, [facility] [place] [facility] [address] [id number], [place] [address]- 4770 Aug, [facility] [place] [facility] [address] [id number] [place] [address]- 1260 Aug, [facility] [place] [facility] [address] [id number] [place] [address]- 2430 Aug, [facility] [place] [facility] [address] [id number], [place] [address]- 8442 Aug, [facility] [place] [facility] [address] [id number] [place] [address]- 9252 23 Aug, 2012 [facility] [place] [facility] [address] [id number] [place] [address]- 3697 Aug, 2012 [facility] [place] [facility] [address] [id number] [place] [address]- 6439 Aug, 2012 [facility] [place] [facility] [address] [id number] [place] [address]- 9552 16 Aug, 2012 [facility] [place] [facility] [address] [id number] [place] [address]- 0874 16 Aug, 2012 [facility] [place] [facility] [address] [id number] [place] [address]- 0752 Aug, 2012 [facility] [place] [facility] [address] [id number] [place] [address]- 4890 10 Aug, 2012 [facility] [place] [facility] [address] [id number] [place] [address]- 8888 08 Aug, 2013 [facility] [place] [facility] [address] [id number] [place] [address]- 7317 Aug, [facility] [place] [facility] [address] [id number] [place] [address]- 0833 04 Aug, 2013 [facility] [place] [facility] [address] [id number] [place] [address]- 5944 Aug, [facility] [place] [facility] [address] [id number] [place] [address]- 2404 Aug, [facility] [place] [facility] [address] [id number] [place] [address]- 6818 Jul, [facility] [place] [facility] [address] [id number] [place] [address]- 7607 Jun, [facility] [place] [facility] [address] [id number] [place] [address]- 9454 Jun, [facility] [place] [facility] [address] [id number] [place] [address]- 0869 May, [facility] [place] [facility] [address] [id number] [place] [address]- 4643 May, [facility] [place] [facility] [address] [id number] [place] [address]- 7414 Apr, [facility] [place] [facility] [address] [id number] [place] [address]- 1133 Apr, [facility] [place] [facility] [address] [id number] [place] [address]- 8300 Apr, [facility] [place] [facility] [address] [id number] [place] [address]- 5736 Apr, [facility] [place] [facility] [address] [id number] [place] [address]- 8448 Apr, [facility] [place] [facility] [address] [id number] [place] [address]- 8322 Apr, [facility] [place] [facility] [address] [id number] [place] [address]- 3186 Apr, [facility] [place] [facility] [address] [id number] [place] [address]- 8594 Apr, [facility] [place] [facility] [address] [id number] [place] [address]- 0551 Apr, [facility] [place] [facility] [address] [id number] [place] [address]- 1098 Apr, [facility] [place] [facility] [address] [id number], [place] [address]- 8841 Apr, [facility] [place] [facility] [address] [id number] [place] [address]- 5145 March, [facility] [place] [facility] [address] [id number] [place] [address]- 2241 March, [facility] [place] [facility] [address] [id number] [place] [address]- 6773 March, [facility] [place] [facility] [address] [id number] [place] [address]- 6146 March, [facility] [address] [id number] [place] [address]- 2456 March, [facility] [address] [id number] [place] [address]- 3946 Feb, [facility] [address] [id number] [place] [address]- 2427 Feb, [facility] [address] [id number] [place] [address]- 6109 Jan, [facility] [address] [id number] [place] [address]- 7480 Jan, [facility] [address] [id number] [place] [address]- 9423 Jan, [facility] [address] [id number] [place] [address]- 4577 Jan, [facility] [address] [id number] [place] [address]- 6998 Jan, [facility] [address] [id number] [place] [address]- 8498 Dec, [facility] [address] [id number] [place] [address]- 4391 Dec, [facility] [address] [id number] [place] [address]- 9317 Nov, [facility] [address] [id number] [place] [address]- 5483 Nov, [facility] [address] [id number] [place] [address]- 9947 Nov, [facility] [address] [id number] [place] [address]- 2546 16 Nov, 2012 [facility] [address] [id number] [place] 3106 Nov, [facility] [address] [id number] [place] [address]- 4347 14 Nov, 2012 [facility] [place] [facility] [address] [id number] [place] [address]- 8605 14 Nov, 2012 [facility] [place] [facility] [address] [id number] [place] [address]- 1133 Nov, [facility] [place] [facility] [address] [id number] [place] [address]- 9562 Nov, [facility] [place] [facility] [address] [id number] [place] [address]- 7369 Nov, [facility] [place] [facility] [address] [id number] [place] [address]- 3407 Nov, [facility] [place] [facility] [address] [id number] [place] [address]- 8018 Oct, [facility] [place] [facility] [address] [id number] [place] [address]- 5673 Oct, [facility] [place] [facility] [address] [id number] [place] [address]- 2503 Sep, [facility] [place] [facility] [address] [id number], [place] [address]- 2712 Sep, [facility] [place] [facility] [address] [id number], [place] [address]- 3766 Sep, [facility] [place] [facility] [address] [id number], [place] [address]- 0219 Sep, [facility] [place] [facility] [address] [id number] [place] [address]- 0951 Sep, [facility] [place] [facility] [address] [id number], [place] [address]- 1398 Sep, [facility] [place] [facility] [address] [id number], [place] [address]- 0102 Sep, [facility] [place] [facility] [address] [id number], [place] [address]- 5405 Sep, [facility] [place] [facility] [address] [id number] [place] [address]- 4897 Sep, [facility] [place] [facility] [address] [facility] [id number], [place] [address]- 3577 Sep, [facility] [place] [facility] [address] [facility] [id number] [place] [address]- 1109 Sep, [facility] [place] [facility] [address] [facility] [id number] [place] [address]- 6285 Sep, [facility] [place] [facility] [address] [facility] [id number] [place] [address], [place] [address]- 4708 Sep, [facility] [place] [facility] [address] [facility] [id number], [place] [address]- 2806 Sep, [facility] [place] [facility] [id number] [place] [address]67[address]- 6363 Aug, [facility] [place] [facility] [address] [facility] [id number], [place] [address]- 0828 Aug, [facility] [place] [facility] [address] [id number], [place] [address]- 1004 Aug, [facility] [place] [facility] [address] [id number], [place] [address]- 3575 Aug, [facility] [place] [facility] [address] [facility] [id number], [place] [address]- 7014 Aug, [facility] [place] [facility] [address] [facility] [id number], [place] [address]- 1231 Aug, [facility] [place] [facility] [address] [facility] [id number], [place] [address]- 4290 Aug, [facility] [place] [facility] [address] [facility] [id number], [place] [address]- 6271 Aug, [facility] [place] [facility] [address] [id number], [place] [address]- 1452 Aug, [facility] [place] [facility] [address] [facility] [id number], [place] [address]- 3296 Aug, [facility] [address] [facility] [id number], [place] [address]- 8217 Aug, [facility] [address] [facility] [id number], [place] [address]- 7588 Aug, [facility] [address] [facility] [id number], [place] [address]- 2493 Aug, [facility] [address] [facility] [id number], [place] [address]- 7863 Aug, [facility] [id number], [place] [address]- 7334 Aug, [facility] [id number], [place] [address]- 8016 Aug, [facility] [id number], [place] [address]- 0705 Aug, [facility] [id number], [place] [address]- 9433 Jul, [facility] [id number], [place] [address]- 9784 Jun, [facility] [address] [id number], [place] [address]- 9648 Aug, [facility] [id number], [place] [address]- 6197 Aug, [facility] [address] [id number], [place] [address]- 8747 Aug, IMMUNIZATIONS No Known Immunizations SOCIAL HISTORY Never Assessed REASON FOR VISIT Referral PLAN OF CARE VITAL SIGNS MEDICATIONS Unknown [...]
--- OUTSIDE RECORDS SUMMARY | 2018-05-03 19:44 | XMS REPORT ---
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 Name Role Phone MADDIEArjun PIPPA Unavailable PROBLEMS Type Condition ICD9-CM Code XTX77-SX Code Onset Dates Condition Status SNOMED Code Problem Mixed hyperlipidemia E78.2 Active 901810067 Problem Stasis dermatitis without varicosities I87.2 Active 58546729 Problem Edema of both legs R60.0 Active 824744491 Problem Morbid (severe) obesity due to excess calories E66.01 Active 849065467 Problem Chronic pain syndrome G89.4 Active 304291905 Problem Dependence on supplemental oxygen Z99.81 Active 699273721055 Problem 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 Active 38732966 Problem Gastroesophageal reflux disease without esophagitis K21.9 Active 332188836 Problem Urge incontinence of urine N39.41 Active 42584183 Problem Restless legs syndrome G25.81 Active 422907787 Problem Essential hypertension I10 Active 05136411 Problem Chronic stasis dermatitis I83.10 Active 09044671 Problem Renal insufficiency N28.9 Active 989988315 Problem Acquired hypothyroidism E03.9 Active 312756078 Problem Lymphedema I89.0 Active 237511288 Problem Lumbar pain M54.5 Active 702234716 Problem Nocturnal hypoxia G47.34 Active 052298269 ALLERGIES No Information ENCOUNTERS Encounter Location Date Diagnosis [facility] [address] [facility] [id number] [address] March, [facility] [address], [place] [address] 97[address] Feb, [facility] [address] [id number] [address] 0526 Jan, [facility] [id number] [place] [address] 31468- 2337 28 Jan, 2018 [facility] [id number] [place] [address] 37063- 6484 Jan, Acquired hypothyroidism E03.9 ; Morbid (severe) obesity due to excess calories E66.01 ; Body mass index (BMI) 70 or greater, adult Z68.45 ; Cellulitis of left anterior lower leg L03.116 ; Restless legs syndrome G25.81 ; Nocturnal hypoxia G47.34 and Dependence on supplemental oxygen Z99.81 [facility] [id number] [place] [address] 33354- 8271 Jan, [facility] [id number] [place] [address] 73449- 0387 12 Dec, 2017 [facility] [id number] [place] [address] 86359- 2534 Oct, [facility] [id number] [place] [address] 19193- 5566 07 Oct, 2017 [facility] [id number] [place] [address] 54748- 4710 Sep, [facility] [id number] [place] [address] 93701- 1618 16 Sep, 2017 [facility] [id number] [place] [address] 82868- 9388 16 Sep, 2017 Dental examination Z01.20 [facility] [id number] [place] [address] 79777- 2936 Sep, Morbid obesity due to excess calories E66.01 ; Body mass index (BMI) of 70 or greater in adult Z68.45 ; Stasis dermatitis without varicosities I87.2 ; Lymphedema I89.0 ; Renal insufficiency N28.9 ; Acquired hypothyroidism E03.9 ; Cellulitis L03.90 ; Bronchitis J40 and BMI 40.0-44.9, adult Z68.41 [facility] [id number] [place] [address] 94681- 6093 Aug, [facility] [address] [facility] [id number] [id number] Aug, Dental examination Z01.20 [facility] [id number] [place] [address] 09414- 3013 Aug, [facility] [address], [place] [address]- 4803 26 Jul, 2017 [facility] [id number] [place] [address] 25478- 7472 Jul, [facility] [address] [facility] [id number] [place] [address] 64715- 5040 18 Jul, 2017 [facility] [id number] [place] [address] 38402- 2246 14 Jul, 2017 [facility] [id number] [place] [address] 17855- 2844 Jul, [facility] [id number] [place] [address] 49553- 3495 Jun, [facility] [id number] [place] [address] 98259- 7503 Jun, Dependence on nocturnal oxygen therapy Z99.81 ; Morbid obesity due to excess calories E66.01 and Bronchitis J40 [facility] [address], [place] [address] 7502 Jun, Restless legs syndrome G25.81 [facility] [address], [place] [address]- 3497 Jun, [facility] [id number] [place] [address] 45424- 0808 May, [facility] [id number] [place] [address] [id number] Apr, [facility] [address] [address] 4262 Apr, [facility] [id number] [place] [address] 34812- 0171 Apr, Essential hypertension I10 [facility] [id number] [place] [address] 62414- 3950 Apr, [place] [id number] [place] [address] 88165- 1599 Apr, Chronic pain syndrome G89.4 and Urge incontinence of urine N39.41 [place] [id number] [place] [address] 85834- 2619 March, Acquired hypothyroidism E03.9 [place] [facility] [id number] [place] [address] 21235- 9985 March, [place] [id number] [place] [address] 50087- 3509 March, [place] [id number] [place] [address] 77132- 4889 March, Chronic pain syndrome G89.4 ; Essential [...] extremity L03.116 and Screening breast examination Z12.39 [place] [id number] [place] [address] 81084- 3863 March, [facility] [id number] [place] [address] 33946- 2001 Feb, [place] [id number] [place] [address] 80051- 6128 Feb, [place] [id number] [place] [address] 84210- 4921 Feb, Chronic pain syndrome G89.4 [facility] [id number] [place] [address] 61143 -9788 Feb, Right foot pain M79.671 and Right foot sprain, initial encounter S93.601A [facility] [address]005[address], [place] [address]- 2935 Jan, [facility] [id number] [place] [address] 73576- 7560 Jan, [facility] [id number] [place] [address] 81091- 1865 Jan, Chronic pain syndrome G89.4 [facility] [id number] [place] [address] 97589- 7776 Jan, [place] [id number] [place] [address] 45235- 0124 Dec, [place] [id number] [place] [address] 11684- 6770 Dec, [place] [id number] [place] [address] 15444- 9523 Dec, Pain in right knee M25.561 ; Pain in left knee M25.562 ; Essential hypertension I10 ; Chronic stasis dermatitis I83.10 ; Restless legs syndrome G25.81 ; Acquired hypothyroidism E03.9 ; Dependence on nocturnal oxygen therapy Z99.81 ; Mixed hyperlipidemia E78.2 ; Lymphedema I89.0 ; Chronic pain syndrome G89.4 ; Gastroesophageal reflux disease without esophagitis K21.9 and Urge incontinence of urine N39.41 [place] [address] [address]- 0953 Nov, Mixed hyperlipidemia E78.2 [facility] [address], [place] [address]- 0304 Nov, [place] [id number] [place] [address] 79754- 8050 Nov, [facility] [address], [place] [address]- 7909 Nov, [facility] [address] [id number], [place] [address]26 Nov, Stasis ulcer, left I83.029 [facility] [address], [place] [address]- 7579 Nov, [facility] [address], [place] [address]- 0190 Oct, [facility] [address], [place] [address]- 8216 Oct, [facility] [address], [place] [address]- 1584 Oct, [facility] [address], [place] [address]- 7506 Sep, [facility] [address], [place] [address]- 1072 Sep, [address] [id number] Sep, [facility] [address], [place] [address]- 3871 Aug, [facility] [address], [place] [address]- 2219 Jul, [facility] [address], [place] [address]- 2269 Jul, [facility] [address], [place] [address]- 0071 Jul, [facility] [address], [place] [address]- 5131 Jul, [facility] [address], [place] [address]- 1042 Jul, Chest pain, unspecified type R07.9 ; Dyspnea on exertion R06.09 ; Essential hypertension I10 ; Hyperlipidemia, unspecified hyperlipidemia type E78.5 ; Left bundle branch block I44.7 and Hypothyroidism, unspecified type E03.9 [facility] [id number] [place] [address] 84456 -2120 Jun, Fever, unspecified fever cause R50.9 ; Headache, unspecified headache type R51 ; SOB (shortness of breath) R06.02 and Strep pharyngitis J02.0 [facility] [id number] [place] [address] 38695- 6400 Jun, [facility] [address] 67432- 6717 Jun, [facility] [address] 79148- 3201 Jun, Essential hypertension I10 ; Mixed hyperlipidemia E78.2 and Acquired hypothyroidism E03.9 [facility] [id number] [place] [address] 83069- 6913 Jun, Edema of both legs R60.0 ; Hypoxia R09.02 and Essential hypertension I10 [facility] [address] 68862- 4460 Jun, [place] [address] 34450- 0170 Jun, Edema of both legs R60.0 ; Hypoxia R09.02 and Essential hypertension I10 [facility] [id number] [place] [address] 31677- 1479 Jun, Essential hypertension I10 ; Dependence on supplemental oxygen Z99.81 and Edema of both legs R60.0 [place] [id number] [place] [address] 21992- 1129 May, Lumbar pain M54.5 ; Essential hypertension I10 ; Edema of both legs R60.0 ; Stasis dermatitis without varicosities I87.2 and Left knee pain M25.562 [facility] [id number] [place] [address] 60420- 0868 May, [facility] [address] 60960- 5555 May, [facility] [address], [place] [address]- 0511 May, [facility] [id number] [place] [address] 50487- 5601 Apr, [facility] [id number] [place] [address] 47116- 1032 Apr, [facility] [id number] [place] [address] 18700- 4245 March, [facility] [id number] [place] [address] 81118- 7475 March, Lymphedema I89.0 ; Morbid obesity due to excess calories E66.01 ; Alteration in mobility due to weakness R53.1 and Hypoxia R09.02 [place] [id number] [place] [address] 14068- 8146 March, Abdominal wall mass R19.00 [place] [id number] [place] [address] 09829- 9378 March, [facility] [id number] [place] [address] 09382- 9195 March, Abdominal wall mass R19.00 ; Lower abdominal pain R10.30 ; Alteration in mobility due to weakness R53.1 ; Hypoxia R09.02 and Lymphedema I89.0 [place] [address], [place] [address]- 2388 Feb, [facility] [address] [place] [address] 56662- 0570 Feb, Acquired hypothyroidism E03.9 ; Dependence on machine for supplemental oxygen V46.2 ; Restless legs syndrome G25.81 ; Essential hypertension I10 ; Renal insufficiency N28.9 ; Chronic stasis dermatitis I83.10 ; Mixed hyperlipidemia E78.2 ; Other chronic pain 338.29 and Cellulitis of left lower extremity L03.116 [place] [id number] [place] [address] 63076- 4489 Feb, [facility] [id number] [place] [address] 68267- 7891 Feb, [facility] [address] 89488 -4430 Feb, Shortness of breath R06.02 and Bronchitis J40 [place] [address] 01074- 4589 Jan, Dependence on supplemental oxygen Z99.81 [place] [address] 78240- 9337 Jan, [place] [address] 97282- 8039 Dec, [place] [address] 47604- 9477 Dec, [place] [address] 50075- 0167 Nov, Osteoarthritis of knees, bilateral M17.0 [place] [address] 76414- 8477 Nov, Dependence on machine for supplemental oxygen V46.2 ; Nocturnal hypoxia G47.34 and Urgency of urination R39.15 [place] [address] 06154- 0467 Nov, [place] [address] 82451- 2963 Oct, Pain in right knee M25.561 and Pain in left knee M25.562 [place] [address] 37739- 4601 Oct, Acquired hypothyroidism E03.9 ; Renal insufficiency N28.9 and Chronic stasis dermatitis I83.10 [place] [address] 28821- 3502 Oct, [place] [id number] [place] [address] 80400- 9833 Sep, Cellulitis L03.90 ; Left knee pain M25.562 ; Essential hypertension I10 ; Lymphedema I89.0 ; Lumbar pain M54.5 ; Morbid obesity due to excess calories E66.01 and Renal insufficiency N28.9 [facility] [id number] [place] [address] 37039- 7732 Sep, Cellulitis L03.90 and Lymphedema I89.0 [place] [id number] [place] [address] 14645- 9704 Sep, [place] [address] 48178- 7476 Sep, [place] [id number] [place] [address] 59273- 3827 Sep, Left knee pain M25.562 ; Lumbar pain M54.5 ; Restless legs syndrome G25.81 ; Acquired hypothyroidism E03.9 and Essential hypertension I10 [place] [id number] [place] [address] 31812- 2956 Jul, [place] [id number] [place] [address] 83264- 0686 Jun, [facility] [id number] [place] [address] 79350- 9327 May, [place] [id number] [place] [address] 48178- 7490 May, [facility] [id number] [place] [address] 64547- 2465 May, Hypertension 997.91 ; Restless legs syndrome [RLS] 333.94 ; Unspecified venous (peripheral) insufficiency 459.81 ; Unspecified hypothyroidism 244.9 and Other chronic pain 338.29 [facility] [id number] [place] [address] 26167- 9022 Apr, [facility] [address]50865[place], [place] [address]- 1227 Apr, [facility] [address] [place] [address] 30587- 8648 Apr, Restless legs syndrome [RLS] 333.94 ; Shortness of breath 786.05 ; Unspecified venous (peripheral) insufficiency 459.81 ; Unspecified hypothyroidism 244.9 ; Obesity, unspecified 278.00 ; Other chronic pain 338.29 ; Hypertension 997.91 and Hyperlipidemia 272.4 [facility] [address], [place] [address]- 6276 Feb, [facility] [id number] [place] [address] 18557- 2364 Feb, [facility] [id number] [place] [address] 06168- 1866 Jan, [facility] [id number] [place] [address] 774049- 5311 Jan, [facility] [address] [address]- 2282 Jan, [facility] [id number] [place] [address] 30660- 1805 Jan, [facility] [address], [place] [address]- 6699 Jan, [facility] [address] [address]- 5490 Jan, [facility] [address], [place] [address]- 4828 Jan, [facility] [id number] [place] [address] 18265- 7643 Jan, [facility] [address] 5221 Jan, [facility] [address]- 4454 Jan, [facility] [place] [facility] [address] [id number] [place] [address]- 6042 Jan, [facility] [place] [facility] [address] [id number] [place] [address]- 3555 Jan, [facility] [place] [facility] [address] [id number] [place] [address]- 3723 Jan, [facility] [place] [facility] [address] [id number] [place] [address]- 6100 Jan, [facility] [place] [facility] [address] [id number] [place] [address]- 8646 Dec, [facility] [place] [facility] [address] [id number] [place] [address]- 8161 Dec, [facility] [place] [facility] [address] [id number] [place] [address]- 3260 Nov, [facility] [place] [facility] [address] [id number] [place] [address]- 6689 Nov, [facility] [place] [facility] [address] [id number] [place] [address]- 5170 Nov, [facility] [place] [facility] [address] [id number] [place] [address]- 5787 Nov, [facility] [place] [facility] [address] [id number] [address]- 8078 Nov, [facility] [place] [facility] [address] [id number] [address]- 2056 Nov, [facility] [place] [facility] [address] [id number] [place] [address]- 1225 Nov, [facility] [place] [facility] [address] [id number] [place] [address]- 8430 Nov, [facility] [place] [facility] [address] [id number] [place] [address]- 9610 Nov, [facility] [place] [facility] [address] [id number], [place] [address]- 9571 14 Nov, 2014 [facility] [place] [facility] [address] [id number] [place] [address]- 4251 14 Nov, 2014 [facility] [place] [facility] [address] [id number] [address]- 5819 Nov, [facility] [place] [facility] [address] [facility] [id number] [place] [address]- 4503 Nov, [facility] [place] [facility] [address] [id number] [place] [address]- 1271 Nov, [facility] [place] [facility] [id number] [place] [address], [place] [address]- 5129 Nov, [facility] [place] [facility] [address] [id number] [place] [address]- 1977 Nov, [facility] [place] [facility] [address] [facility] [id number], [place] [address]- 9700 Oct, [facility] [place] [facility] [address] [id number] [place] [address]- 7456 Oct, [facility] [place] [facility] [address] [facility] [id number] [place] [address]- 5213 Sep, [facility] [place] [facility] [address] [facility] [id number][place] [address]- 6671 Aug, [facility] [place] [facility] [address] [id number], [place] [address]- 1451 Aug, [facility] [place] [facility] [address] [id number], [place] [address]- 0179 Aug, [facility] [place] [facility] [address] [id number] [place] [address]- 8603 Aug, [facility] [place] [facility] [address] [facility] [id number], [place] [address]- 6994 Aug, [facility] [place] [facility] [address] [facility] [id number][place] [address]- 7207 Aug, [facility] [place] [facility] [address] [id number] [place] [address]- 7803 Aug, [facility] [place] [facility] [address] [id number] [place] [address]- 0813 Aug, [facility] [place] [facility] [address] [id number] [place] [address]- 7154 Aug, [facility] [place] [facility] [address] [id number] [place] [address]- 2922 Aug, [facility] [place] [facility] [address] [id number] [place] [address]- 5807 Jun, [facility] [place] [facility] [address] [id number] [place] [address] Jun, [facility] [place] [facility] [address] [id number] [place] [address] Jun, [facility] [place] [facility] [address] [id number] [place] [address] Jun, [facility] [place] [facility] [address] [id number] [place] [address] Jun, [facility] [place] [facility] [address] [id number] [place] [address] Jun, [facility] [place] [facility] [address] [id number] [place] [address] Jun, [facility] [place] [facility] [address] [id number] [place] [address] Jun, [facility] [place] [facility] [address] [id number] [place] [address] Jun, [facility] [place] [facility] [address] [id number] [place] [address] Jun, [facility] [place] [facility] [address] [id number] [place] [address] May, [facility] [place] [facility] [address] [id number] [place] [address] May, [facility] [place] [facility] [address] [id number] [place] [address] May, [facility] [place] [facility] [address] [id number] [place] [address] May, [facility] [place] [facility] [address] [id number] [place] [address] May, [facility] [place] [facility] [address] [id number] [place] [address] May, [facility] [place] [facility] [address] [id number] [place] [address] May, [facility] [place] [facility] [address] [id number] [place] [address] May, [facility] [place] [facility] [address] [id number] [place] [address] May, 2013 [facility] [place] [facility] [address] [id number] [place] [address] May, 2013 [facility] [place] [facility] [address] [id number] [place] [address] May, [facility] [place] [facility] [address] [id number] [place] [address] May, 2013 [facility] [place] [facility] [address] [id number] [place] [address] May, [facility] [place] [facility] [address] [id number] [place] [address] May, 2013 [facility] [place] [facility] [address] [id number] [place] [address] May, [facility] [place] [facility] [address] [id number] [place] [address] May, [facility] [place] [facility] [address] [id number] [place] [address] May, 2013 [facility] [place] [facility] [address] [id number] [place] [address] May, [facility] [place] [facility] [address] [id number] [place] [address] Apr, [facility] [place] [facility] [address] [id number] [place] [address] Apr, [facility] [place] [facility] [address] [id number] [place] [address] Apr, [facility] [place] [facility] [address] [id number] [place] [address] Apr, [facility] [place] [facility] [address] [id number] [place] [address] Apr, [facility] [place] [facility] [address] [id number] [place] [address] Apr, [facility] [place] [facility] [address] [id number] [place] [address] Apr, [facility] [place] [facility] [address] [id number] [place] [address] Apr, [facility] [place] [facility] [address] [id number] [place] [address] 9325 Apr, [facility] [place] [facility] [address] [id number] [place] [address] 4512 Apr, [facility] [place] [facility] [address] [id number] [place] [address] 0422 Apr, [facility] [place] [facility] [address] [id number] [place] [address] 9409 Apr, [facility] [place] [facility] [address] [id number] [place] [address] 7455 March, [facility] [place] [facility] [address] [id number] [place] [address] 4085 March, [facility] [place] [facility] [address] [id number] [place] [address] 6028 March, [facility] [place] [facility] [address] [id number] [place] [address] 0700 March, [facility] [place] [facility] [address] [id number] [place] [address] 4951 March, [facility] [place] [facility] [address] [id number] [place] [address] 9826 March, [facility] [place] [facility] [address] [id number] [place] [address] 8166 March, [facility] [place] [facility] [address] [id number] [place] [address] 5974 March, [facility] [place] [facility] [address] [id number] [place] [address]- 1521 March, [facility] [place] [facility] [address] [id number] [place] [address]- 6552 March, [facility] [place] [facility] [address] [id number] [place] [address] 5283 March, [facility] [place] [facility] [address] [id number] [place] [address]- 4018 Feb, [facility] [place] [facility] [address] [id number] [place] [address]- 5504 Feb, [facility] [place] [facility] [address] [id number] [place] [address]- 7004 Feb, [facility] [place] [facility] [address] [id number] [place] [address]- 4577 Feb, [facility] [place] [facility] [address] [id number] [place] [address]- 7691 Feb, [facility] [place] [facility] [address] [id number] [place] [address]- 2203 Feb, [facility] [place] [facility] [address] [id number] [place] [address]- 6221 Feb, [facility] [place] [facility] [address] [id number] [place] [address]- 9120 Feb, [facility] [place] [facility] [address] [id number] [place] [address]- 5389 Feb, [facility] [place] [facility] [address] [id number] [place] [address]- 3834 Feb, [facility] [place] [facility] [address] [id number] [place] [address]- 4962 Feb, [facility] [place] [facility] [address] [id number] [place] [address]- 3482 Feb, [facility] [place] [facility] [address] [id number] [place] [address]- 2563 Feb, [facility] [place] [facility] [address] [id number] [place] [address]- 4865 Feb, [facility] [place] [facility] [address] [id number] [place] [address]- 4485 Feb, [facility] [place] [facility] [address] [id number] [place] [address]- 7937 Feb, [facility] [place] [facility] [address] [id number] [place] [address]- 1731 Feb, [facility] [place] [facility] [address] [id number] [place] [address]- 7734 Feb, [facility] [place] [facility] [address] [id number] [place] [address]- 5901 Feb, [facility] [place] [facility] [address] [id number] [place] [address]- 0748 Feb, [facility] [place] [facility] [address] [id number] [place] [address]- 5717 Jan, [facility] [place] [facility] [address] [id number] [place] [address]- 3806 Jan, [facility] [place] [facility] [address] [id number] [place] [address]- 1501 Jan, [facility] [place] [facility] [address] [id number] [place] [address]- 8983 25 Jan, 2014 [facility] [place] [facility] [address] [id number] [place] [address]- 4750 24 Jan, 2014 [facility] [place] [facility] [address] [id number] [place] [address] 24 Jan, 2014 [facility] [place] [facility] [address] [id number] [place] [address]- 3681 18 Jan, 2014 [facility] [place] [facility] [address] [id number] [place] [address]- 8073 18 Jan, 2014 [facility] [place] [facility] [address] [id number] [place] [address]- 9867 14 Jan, 2014 [facility] [place] [facility] [address] [id number] [place] [address]- 7139 14 Jan, 2014 [facility] [place] [facility] [address] [id number] [place] [address]- 5580 Jan, [facility] [place] [facility] [address] [id number] [place] [address]- 3962 Jan, [facility] [place] [facility] [address] [id number] [place] [address]- 2940 05 Jan, 2014 [facility] [place] [facility] [address] [id number] [place] [address]- 3729 Jan, [facility] [place] [facility] [address] [id number] [place] [address]- 8904 Dec, [facility] [place] [facility] [address] [id number] [place] [address]- 5691 Dec, [facility] [place] [facility] [address] [id number] [place] [address]- 8782 Dec, [facility] [place] [facility] [address] [id number] [place] [address]- 5966 Dec, [facility] [place] [facility] [address] [id number] [place] [address]- 2439 Dec, [facility] [address] [id number] [place] [address]- 7434 Dec, [facility] [place] [facility] [address] [id number] [place] [address]- 3436 Dec, [facility] [place] [facility] [address] [id number] [place] [address]- 5201 Dec, [facility] [place] [facility] [address] [id number] [place] [address]- 7450 Dec, [facility] [place] [facility] [address] [id number] [place] [address]- 4829 Nov, [facility] [place] [facility] [address] [id number] [place] [address]- 1117 Nov, [facility] [place] [facility] [address] [id number] [place] [address]- 5627 Nov, [facility] [place] [facility] [address] [id number] [place] [address]- 8606 Nov, [facility] [place] [facility] [address] [id number] [place] [address]- 7026 Oct, [facility] [place] [facility] [address] [id number] [place] [address]- 8643 Oct, [facility] [place] [facility] [address] [id number] [place] [address]- 5243 Oct, [facility] [place] [facility] [address] [id number] [place] [address]- 0446 Oct, [facility] [place] [facility] [address] [id number] [place] [address]- 3124 Oct, [facility] [place] [facility] [address] [id number] [place] [address]- 0856 Oct, [facility] [place] [facility] [address] [id number] [place] [address]- 2859 Oct, [facility] [place] [facility] [address] [id number] [place] [address]- 8299 23 Oct, 2012 [facility] [address] [id number] [place] [address]- 8656 20 Oct, 2013 [facility] [address] [id number] [place]46 19 Oct, 2013 [facility] [address] [id number] [place] [address]- 2746 19 Oct, 2013 [facility] [address] [id number] [place] [address]- 3726 18 Oct, 2013 [facility] [address] [id number] [place]998 18 Oct, 2013 [facility] [address] [id number] [place] [address]- 6169 17 Oct, 2013 [facility] [address] [id number] [place] [address]- 1237 17 Oct, 2013 [facility] [address] [id number] [place] [address]- 6676 17 Oct, 2013 [facility] [address] [id number] [place] [address]- 9225 17 Oct, 2013 [facility] [address] [id number] [place] [address]- 2308 17 Oct, 2013 [facility] [address] [id number] [place] [address]- 9842 17 Oct, 2013 [facility] [address] [id number] [place] [address]- 7793 11 Oct, 2013 [facility] [address] [id number] [place] [address]- 3700 11 Oct, 2013 [facility] [address] [id number] [place] [address]- 7903 27 Sep, 2013 [facility] [address] [id number] [place] [address]- 5707 Sep, [facility] [place] [facility] [address] [id number] [place] [address]- 5140 Sep, [facility] [place] [facility] [address] [id number] [place] [address]- 8733 Sep, [facility] [place] [facility] [address] [id number] [place] [address]- 4500 18 Sep, 2013 [facility] [place] [facility] [address] [id number] [place] [address]- 9523 Sep, [facility] [place] [facility] [address] [id number] [place] [address]- 8658 Sep, [facility] [place] [facility] [address] [id number] [place] [address]- 8379 Sep, [facility] [place] [facility] [address] [id number] [place] [address]- 1950 Sep, [facility] [place] [facility] [address] [id number] [place] [address]- 9847 Sep, [facility] [place] [facility] [address] [id number] [place] [address]- 1826 Sep, [facility] [place] [facility] [address] [id number][place] [address]- 5507 Sep, [facility] [place] [facility] [address] [id number][place] [address]- 9078 Aug, [facility] [place] [facility] [address] [id number], [place] [address]- 9538 Aug, [facility] [place] [facility] [address] [id number] [place] [address]- 8849 Aug, [facility] [place] [facility] [address] [id number] [place] [address]- 5360 Aug, [facility] [place] [facility] [address] [id number][place] [address]- 5745 Aug, [facility] [place] [facility] [address] [id number] [place] [address]- 6781 Aug, 2012 [facility] [place] [facility] [address] [id number] [place] [address]- 0328 Aug, 2012 [facility] [place] [facility] [address] [id number] [place] [address]- 4261 Aug, 2012 [facility] [place] [facility] [address] [id number] [place] [address]- 7613 16 Aug, 2012 [facility] [place] [facility] [address] [id number] [place] [address]- 3856 16 Aug, 2012 [facility] [place] [facility] [address] [id number] [place] [address]- 9786 10 Aug, 2012 [facility] [place] [facility] [address] [id number] [place] [address]- 4184 10 Aug, 2012 [facility] [place] [facility] [address] [id number] [place] [address]- 4984 08 Aug, 2012 [facility] [place] [facility] [address] [id number] [place] [address]- 2336 07 Aug, 2013 [facility] [place] [facility] [address] [id number] [place] [address]- 4710 04 Aug, 2013 [facility] [place] [facility] [address] [id number] [place] [address]- 8801 Aug, [facility] [place] [facility] [address] [id number] [place] [address]- 2989 Aug, [facility] [place] [facility] [address] [id number][place] [address]- 7157 Jul, [facility] [place] [facility] [address] [id number] [place] [address]- 7730 Jun, [facility] [place] [facility] [address] [id number] [place] [address]- 1758 Jun, [facility] [place] [facility] [address] [id number], [place] [address]- 0370 May, [facility] [place] [facility] [address] [id number] [place] [address]- 6180 May, [facility] [place] [facility] [address] [id number] [place] [address]- 3399 Apr, [facility] [place] [facility] [address] [id number] [place] [address]- 3047 Apr, [facility] [place] [facility] [address] [id number] [place] [address]- 4771 Apr, [facility] [place] [facility] [address] [id number] [place] [address]- 4666 Apr, [facility] [place] [facility] [address] [id number] [place] [address]- 6717 Apr, [facility] [place] [facility] [address] [id number] [place] [address]- 2863 Apr, [facility] [place] [facility] [address] [id number] [place] [address]- 0050 07 Apr, 2013 [facility] [place] [facility] [address] [id number] [place] [address]- 3674 07 Apr, 2013 [facility] [place] [facility] [address] [id number] [place] [address]- 7669 Apr, [facility] [place] [facility] [address] [id number] [place] [address]- 0120 Apr, [facility] [place] [facility] [address] [id number] [place] [address]- 7838 Apr, [facility] [place] [facility] [address] [id number] [place] [address]- 6047 March, [facility] [place] [facility] [address] [id number] [place] [address]- 7767 March, [facility] [place] [facility] [address] [id number] [place] [address]- 0201 March, [facility] [place] [facility] [address] [id number] [place] [address]- 1580 March, [facility] [address] [id number] [place] [address]- 1415 March, [facility] [address] [id number] [place] [address]- 9956 Feb, [facility] [address] [id number] [place] [address]- 9723 Feb, [facility] [address] [id number] [place] [address]- 4999 Jan, [facility] [address] [id number] [place] [address]- 0747 Jan, [facility] [address] [id number] [place] [address]- 3818 Jan, [facility] [address] [id number] [place] [address]- 8406 Jan, [facility] [address] [id number] [place] [address]- 1354 Jan, [facility] [address] [id number] [place] [address]- 8737 Dec, [facility] [place] [facility] [address] [id number] [place] [address]- 8916 Dec, [facility] [address] [id number], [place] [address]- 7468 Nov, [facility] [place] [facility] [address] [id number][place] [address]- 5938 Nov, [facility] [place] [facility] [address] [id number] [place] [address]- 3926 Nov, [facility] [place] [facility] [address] [id number] [place] [address]- 0606 Nov, [facility] [place] [facility] [address] [id number] [place] [address]- 6736 Nov, [facility] [place] [facility] [address] [id number] [place] [address]- 4426 14 Nov, 2012 [facility] [address] [id number] [place] [address]- 0218 14 Nov, 2012 [facility] [address] [id number] [place] [address]- 1569 11 Nov, 2012 [facility] [address] [id number] [place] [address]- 5523 Nov, [facility] [address] [id number] [place] [address]- 2137 Nov, [facility] [address] [id number] [place] [address]- 4931 Nov, [facility] [address] [id number] [place] [address]- 3524 Oct, [facility] [address] [id number] [place] [address]- 1017 Oct, [facility] [address] [id number] [place] [address]- 2730 Sep, [facility] [address] [id number] [place] [address]- 5855 Sep, [facility] [address] [id number] [place] [address]- 5151 Sep, [facility] [address] [id number] [place] [address]- 0228 Sep, [facility] [address] [id number] [place] [address]- 1936 Sep, [facility] [address] [id number] [place] [address]- 4200 Sep, [facility] [address] [id number] [place] [address]- 3471 Sep, [facility] [address] [id number] [place] [address]- 3213 Sep, [facility] [place] [facility] [address] [id number] [place] [address]- 0859 Sep, [facility] [place] [facility] [address] [id number] [place] [address]- 1856 Sep, [facility] [place] [facility] [address] [id number] [place] [address]- 4110 Sep, [facility] [place] [facility] [address] [id number] [place] [address]- 8965 Sep, [facility] [place] [facility] [address] [id number] [place] [address]- 4995 Sep, [facility] [place] [facility] [address] [id number] [place] [address]- 2302 Sep, [facility] [place] [facility] [address] [facility] [id number] [place] [address]- 0765 Aug, [facility] [place] [facility] [address] [id number], [place] [address]- 7298 Aug, [facility] [place] [facility] [address] [facility] [id number], [place] [address]- 8247 Aug, [facility] [place] [facility] [address] [facility] [id number], [place] [address]- 6940 Aug, [facility] [place] [facility] [address] [facility] [id number], [place] [address]- 9070 Aug, [facility] [place] [facility] [address] [id number], [place] [address]- 0318 Aug, [facility] [place] [facility] [address] [facility] [id number][place] [address]- 1881 Aug, [facility] [place] [facility] [address] [facility] [id number][place] [address]- 4698 Aug, [facility] [place] [facility] [address] [facility] [id number], [place] [address]- 8569 Aug, [facility] [place] [facility] [address] [id number], [place] [address]- 3614 Aug, [facility] [id number], [place] [address]- 3218 Aug, [facility] [id number], [place] [address]- 1260 Aug, [facility] [address]00565[address], [place] [address]- 5089 Aug, [facility] [id number], [place] [address]- 4795 Aug, [facility] [id number] [place] [address]- 1583 Aug, [facility] [address] [id number], [place] [address]- 7946 Aug, [facility] [address]00565[address], [place] [address]- 3466 Aug, [facility] [address]00565[address], [place] [address]- 7271 Jul, [facility] [address]00565[address], [place] [address]- 9495 Jun, [facility] [address]00565[address], [place] [address]- 5196 Aug, [facility] [address]65[address], [place] [address]- 4261 Aug, [facility] [id number] [address] Aug, IMMUNIZATIONS No Known Immunizations SOCIAL HISTORY Never Assessed REASON FOR VISIT Refill request PLAN OF CARE VITAL SIGNS MEDICATIONS Medication Instructions Dosage Frequency Start Date End Date Duration Status Metolazone 2.5 MG Orally Once a day 1 tablet 24h 30 Active Cymbalta 60 mg Orally Once a day 1 capsule 24h 30 Active Plavix 75 MG Orally Once a day 1 tablet 24h 30 Active Levothyroxine Sodium 75 mcg Orally Once a day 1 tablet on an empty stomach in the morning 24h 30 Active Potassium Chloride ER 20 meq Orally Once a day 1 tablet with food 24h 30 Active RESULTS No Results PROCEDURES No Known [...]
--- OUTSIDE RECORDS SUMMARY | 2018-05-03 19:45 | XMS REPORT ---
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 Name Role Phone MADDIEArjun PIPPA Unavailable PROBLEMS Type Condition ICD9-CM Code JKP52-GC Code Onset Dates Condition Status SNOMED Code Problem Mixed hyperlipidemia E78.2 Active 097867003 Problem Stasis dermatitis without varicosities I87.2 Active 00354127 Problem Edema of both legs R60.0 Active 785434320 Problem Morbid (severe) obesity due to excess calories E66.01 Active 817595268 Problem Chronic pain syndrome G89.4 Active 145513961 Problem Dependence on supplemental oxygen Z99.81 Active 132618782985 Problem 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 Active 60206782 Problem Gastroesophageal reflux disease without esophagitis K21.9 Active 922920850 Problem Urge incontinence of urine N39.41 Active 79332081 Problem Restless legs syndrome G25.81 Active 865344178 Problem Essential hypertension I10 Active 80318533 Problem Chronic stasis dermatitis I83.10 Active 87238249 Problem Renal insufficiency N28.9 Active 680860930 Problem Acquired hypothyroidism E03.9 Active 629966497 Problem Lymphedema I89.0 Active 166134635 Problem Lumbar pain M54.5 Active 687078105 Problem Nocturnal hypoxia G47.34 Active 682408662 ALLERGIES No Information ENCOUNTERS Encounter Location Date Diagnosis [facility] [address] [facility] [id number] [address] Apr, [facility] [address], [place] [address] 47[address] Apr, [facility] [address] [id number] [address] 9286 Feb, [facility] [address] [id number] [address] Jan, [facility] [address], [place] [address] 6204 Jan, [facility] [id number] [place] [address] 82502- 9199 Jan, Acquired hypothyroidism E03.9 ; Morbid (severe) obesity due to excess calories E66.01 ; Body mass index (BMI) 70 or greater, adult Z68.45 ; Cellulitis of left anterior lower leg L03.116 ; Restless legs syndrome G25.81 ; Nocturnal hypoxia G47.34 and Dependence on supplemental oxygen Z99.81 [facility] [id number] [place] [address] 16429- 7255 Jan, [facility] [id number] [place] [address] 54253- 1193 Dec, [facility] [id number] [place] [address] 62505- 9806 15 Oct, 2017 [facility] [id number] [place] [address] 03236- 3679 07 Oct, 2017 [facility] [id number] [place] [address] 29751- 5962 Sep, [facility] [id number] [place] [address] 41123- 9656 16 Sep, 2017 [facility] [id number] [place] [address] 48821- 5340 16 Sep, 2017 Dental examination Z01.20 [facility] [address] [id number] [address] 6680 Sep, Morbid obesity due to excess calories E66.01 ; Body mass index (BMI) of 70 or greater in adult Z68.45 ; Stasis dermatitis without varicosities I87.2 ; Lymphedema I89.0 ; Renal insufficiency N28.9 ; Acquired hypothyroidism E03.9 ; Cellulitis L03.90 ; Bronchitis J40 and BMI 40.0-44.9, adult Z68.41 [facility] [address] [facility] [id number], [place] [address] Aug, [facility] [address] [address] Aug, Dental examination Z01.20 [facility] [address], [place] [address] 1389 Aug, [facility] [id number] [place] [address] 11805- 1390 Jul, [facility] [id number] [place] [address] 98729- 2652 Jul, [facility] [id number] [place] [address] 55566- 8762 18 Jul, 2017 [facility] [id number] [place] [address] 97368- 9007 Jul, [facility] [address] [place] [address] 46829- 7913 Jul, [facility] [address] [place] [address] 07160- 8407 Jun, [facility] [address] [place] [address] 91291- 3745 Jun, Dependence on nocturnal oxygen therapy Z99.81 ; Morbid obesity due to excess calories E66.01 and Bronchitis J40 [facility] [address] [place] [address] 86506- 1959 Jun, Restless legs syndrome G25.81 [facility] [address], [place] [address]- 5603 Jun, [facility] [id number] [place] [address] 50423- 9791 May, [facility] [id number] [place] [address] [id number] Apr, [facility] [id number] [place] [address] 69822- 9306 Apr, [facility] [address], [place] [address]- 9416 Apr, Essential hypertension I10 [place] [address] [place] [address] 26139- 5533 Apr, [place] [facility] [address] [place] [address] 95836- 8809 Apr, Chronic pain syndrome G89.4 and Urge incontinence of urine N39.41 [facility] [address] [place] [address] 27704- 6496 March, Acquired hypothyroidism E03.9 [facility] [id number] [place] [address] 95733- 9959 March, [facility] [id number] [place] [address] 22643- 4009 March, [facility] [id number] [place] [address] 31657- 8148 March, Chronic pain syndrome G89.4 ; Essential [...] extremity L03.116 and Screening breast examination Z12.39 [facility] [address], [place] [address]- 3911 March, [facility] [address] [place] [address] 97282- 5812 Feb, [facility] [id number] [place] [address] 39212- 8463 Feb, [facility] [address], [place] [address]- 8977 Feb, Chronic pain syndrome G89.4 [facility] [address]005[address], [place] [address] Feb, Right foot pain M79.671 and Right foot sprain, initial encounter S93.601A [facility] [address]888165[place] [address]- 2717 Jan, [facility] [id number] [place] [address] 79275- 9376 Jan, [facility] [id number] [place] [address] 93755- 9353 Jan, Chronic pain syndrome G89.4 [facility] [id number] [place] [address] 58845- 3738 Jan, [facility] [id number] [place] [address] 40395- 3629 Dec, [facility] [id number] [place] [address] 81035- 5042 Dec, [facility] [id number] [place] [address] 61090- 2878 Dec, Pain in right knee M25.561 ; Pain in left knee M25.562 ; Essential hypertension I10 ; Chronic stasis dermatitis I83.10 ; Restless legs syndrome G25.81 ; Acquired hypothyroidism E03.9 ; Dependence on nocturnal oxygen therapy Z99.81 ; Mixed hyperlipidemia E78.2 ; Lymphedema I89.0 ; Chronic pain syndrome G89.4 ; Gastroesophageal reflux disease without esophagitis K21.9 and Urge incontinence of urine N39.41 [facility] [address], [place] [address]- 9232 Nov, Mixed hyperlipidemia E78.2 [facility] [id number] [place] [address] 36654- 8942 Nov, [facility] [address], [place] [address]- 7978 Nov, [facility] [address] [place] [address]- 5070 Nov, [facility] [address] [id number] [address] Nov, Stasis ulcer, left I83.029 [facility] [address] [facility] [id number] [place] [address]- 3232 Nov, [facility] [address], [place] [address]- 0632 Oct, [facility] [address] [id number] [place] [address]- 8315 Oct, [facility] [address] [place] [address]- 3376 Oct, [facility] [address] [place] [address]- 4188 Sep, [facility] [address], [place] [address]- 0928 Sep, [facility] [address] [facility] [id number] [id number] Sep, [facility] [address], [place] [address]- 3068 Aug, [facility] [address] [id number] [address]- 5711 Jul, [facility] [id number], [place] [address]- 8078 Jul, [facility] [address] [id number] [address]- 8344 Jul, [facility] [address], [place] [address]- 6293 Jul, [facility] [id number], [place] [address]- 5349 14 Jul, 2016 Chest pain, unspecified type R07.9 ; Dyspnea on exertion R06.09 ; Essential hypertension I10 ; Hyperlipidemia, unspecified hyperlipidemia type E78.5 ; Left bundle branch block I44.7 and Hypothyroidism, unspecified type E03.9 [facility] [address] [address] -[address]23 Jun, Fever, unspecified fever cause R50.9 ; Headache, unspecified headache type R51 ; SOB (shortness of breath) R06.02 and Strep pharyngitis J02.0 [facility] [address] 00877- 1425 Jun, [facility] [address] 28353- 1892 Jun, [place] [address] 54640- 3095 Jun, Essential hypertension I10 ; Mixed hyperlipidemia E78.2 and Acquired hypothyroidism E03.9 [facility] [address] 68369- 1621 Jun, Edema of both legs R60.0 ; Hypoxia R09.02 and Essential hypertension I10 [place] [facility] [address] 55089- 0053 Jun, [facility] [address] 15812- 4217 Jun, Edema of both legs R60.0 ; Hypoxia R09.02 and Essential hypertension I10 [place] [address] 67906- 5609 Jun, Essential hypertension I10 ; Dependence on supplemental oxygen Z99.81 and Edema of both legs R60.0 [place] [facility] [address] 22784- 1041 May, Lumbar pain M54.5 ; Essential hypertension I10 ; Edema of both legs R60.0 ; Stasis dermatitis without varicosities I87.2 and Left knee pain M25.562 [place] [facility] [address] 92316- 8114 May, [facility] [address], [place] [address]- 3377 May, [facility] [address], [place] [address]- 6739 May, [facility] [address], [place] [address]- 4676 Apr, [facility] [address] [place] [address] 88184- 8245 Apr, [facility] [address], [place] [address]- 9117 March, [facility] [address] [place] [address] 99282- 9639 March, Lymphedema I89.0 ; Morbid obesity due to excess calories E66.01 ; Alteration in mobility due to weakness R53.1 and Hypoxia R09.02 [facility] [address], [place] [address]- 3531 March, Abdominal wall mass R19.00 [facility] [address], [place] [address]- 2381 March, [facility] [address], [place] [address]- 0958 March, Abdominal wall mass R19.00 ; Lower abdominal pain R10.30 ; Alteration in mobility due to weakness R53.1 ; Hypoxia R09.02 and Lymphedema I89.0 [facility] [address], [place] [address]- 0144 Feb, [facility] [address], [place] [address]- 6652 Feb, Acquired hypothyroidism E03.9 ; Dependence on machine for supplemental oxygen V46.2 ; Restless legs syndrome G25.81 ; Essential hypertension I10 ; Renal insufficiency N28.9 ; Chronic stasis dermatitis I83.10 ; Mixed hyperlipidemia E78.2 ; Other chronic pain 338.29 and Cellulitis of left lower extremity L03.116 [place] [id number] [place] [address] 85891- 9950 Feb, [place] [id number] [place] [address] 24301- 8415 Feb, [facility] [id number] [place] [address] 32270 -0499 Feb, Shortness of breath R06.02 and Bronchitis J40 [facility] [id number] [place] [address] 31330- 4362 Jan, Dependence on supplemental oxygen Z99.81 [place] [facility] [address] 76170- 6167 Jan, [place] [facility] [address] 03573- 1355 Dec, [place] [facility] [address] 75152- 4310 Dec, [facility] [id number] [place] [address] 81583- 9793 Nov, Osteoarthritis of knees, bilateral M17.0 [facility] [id number] [place] [address] 15466- 2630 Nov, Dependence on machine for supplemental oxygen V46.2 ; Nocturnal hypoxia G47.34 and Urgency of urination R39.15 [facility] [id number] [place] [address] 41889- 8071 Nov, [facility] [id number] [place] [address] 52819- 3772 Oct, Pain in right knee M25.561 and Pain in left knee M25.562 [facility] [id number] [place] [address] 80424- 7723 Oct, Acquired hypothyroidism E03.9 ; Renal insufficiency N28.9 and Chronic stasis dermatitis I83.10 [facility] [id number] [place] [address] 31407- 5858 Oct, [facility] [facility] [address] 56690- 5693 Sep, Cellulitis L03.90 ; Left knee pain M25.562 ; Essential hypertension I10 ; Lymphedema I89.0 ; Lumbar pain M54.5 ; Morbid obesity due to excess calories E66.01 and Renal insufficiency N28.9 [place] [facility] [address] 90536- 1556 Sep, Cellulitis L03.90 and Lymphedema I89.0 [place] [facility] [address] 46156- 4364 Sep, [place] [facility] [address] 30210- 4414 Sep, [place] [facility] [address] 13619- 3257 Sep, Left knee pain M25.562 ; Lumbar pain M54.5 ; Restless legs syndrome G25.81 ; Acquired hypothyroidism E03.9 and Essential hypertension I10 [place] [facility] [id number] [place] [address] 76186- 0578 Jul, [facility] [facility] [id number] [place] [address] 73578- 3806 Jun, [place] [id number] [place] [address] 98145- 7963 May, [place] [facility] [id number] [place] [address] 97215- 4525 May, [place] [id number] [place] [address] 35872- 8353 May, Hypertension 997.91 ; Restless legs syndrome [RLS] 333.94 ; Unspecified venous (peripheral) insufficiency 459.81 ; Unspecified hypothyroidism 244.9 and Other chronic pain 338.29 [facility] [address] 9530 Apr, [facility] [address] [place] [address] 25814- 2206 Apr, [facility] [address] [address]- 5521 Apr, Restless legs syndrome [RLS] 333.94 ; Shortness of breath 786.05 ; Unspecified venous (peripheral) insufficiency 459.81 ; Unspecified hypothyroidism 244.9 ; Obesity, unspecified 278.00 ; Other chronic pain 338.29 ; Hypertension 997.91 and Hyperlipidemia 272.4 [facility] [id number] [place] [address] 67875- 6231 Feb, [facility] [id number] [place] [address] 33346- 0230 Feb, [facility] [id number] [place] [address] 12486- 7191 Jan, [facility] [address] [address]- 7278 30 Jan, 2015 [facility] [id number] [place] [address] 73786- 8889 Jan, [facility] [address], [place] [address]- 8315 Jan, [facility] [address] [place] [address] 80125- 9009 Jan, [facility] [address], [place] [address]- 7213 Jan, [facility] [id number] [place] [address] 588730- 3164 Jan, [facility] [address] 9089 Jan, [facility] [address] [place] [address] 977695- 0032 Jan, [facility] [place] [facility] [address] [id number] [place] [address]- 8842 Jan, [facility] [place] [facility] [address] [id number] [place] [address]- 6224 Jan, [facility] [place] [facility] [address] [id number] [place] [address]- 6371 Jan, [facility] [place] [facility] [address] [id number] [place] [address]- 1067 Jan, [facility] [place] [facility] [address] [id number] [place] [address]- 0895 Jan, [facility] [place] [facility] [address] [id number] [place] [address]- 5187 Dec, [facility] [place] [facility] [address] [id number] [place] [address]- 1696 Dec, [facility] [place] [facility] [address] [id number] [place] [address]- 5601 Nov, [facility] [place] [facility] [address] [id number] [place] [address]- 6263 Nov, [facility] [place] [facility] [address] [id number] [place] [address]- 2389 Nov, [facility] [place] [facility] [address] [id number] [place] [address]- 7715 Nov, [facility] [place] [facility] [address] [id number] [address]- 9680 Nov, [facility] [place] [facility] [address] [id number] [place] [address]- 6432 Nov, [facility] [place] [facility] [address] [id number] [place] [address]- 6841 Nov, [facility] [place] [facility] [address] [id number] [place] [address]- 1088 Nov, [facility] [place] [facility] [address] [id number] [address]- 5379 Nov, [facility] [place] [facility] [address] [id number] [place] [address]- 7924 Nov, [facility] [place] [facility] [address] [id number] [address]- 2315 Nov, [facility] [place] [facility] [address] [facility] [id number] [place] [address]- 9912 Nov, [facility] [place] [facility] [address] [id number] [place] [address]- 8868 Nov, [facility] [place] [facility] [address] [id number] [place] [address]- 0876 Nov, [facility] [place] [facility] [address] [id number] [place] [address]- 4387 Nov, [facility] [place] [facility] [address] [facility] [id number] [address]- 9617 Nov, [facility] [place] [facility] [address] [id number], [place] [address]- 1547 Oct, [facility] [place] [facility] [address] [id number] [place] [address]- 1015 Oct, [facility] [place] [facility] [address] [facility] [id number][place] [address]- 6881 Sep, [facility] [place] [facility] [address] [id number][place] [address]- 2493 Aug, [facility] [place] [facility] [address] [id number], [place] [address]- 4280 Aug, [facility] [place] [facility] [address] [id number][place] [address]- 2683 Aug, [facility] [place] [facility] [address] [facility] [id number][place] [address]- 0854 Aug, [facility] [place] [facility] [address] [facility] [id number][place] [address]- 7464 Aug, [facility] [place] [facility] [address] [id number] [place] [address]- 9720 Aug, [facility] [place] [facility] [address] [id number] [place] [address]- 5319 Aug, [facility] [place] [facility] [address] [id number] [place] [address]- 6681 Aug, [facility] [place] [facility] [address] [id number] [place] [address]- 0715 Aug, [facility] [place] [facility] [address] [id number] [place] [address]- 6000 Aug, [facility] [place] [facility] [address] [id number] [place] [address] Jun, [facility] [place] [facility] [address] [id number] [place] [address] Jun, [facility] [place] [facility] [address] [id number] [place] [address] Jun, [facility] [place] [facility] [address] [id number] [place] [address] Jun, [facility] [place] [facility] [address] [id number] [place] [address] Jun, [facility] [place] [facility] [address] [id number] [place] [address] Jun, [facility] [place] [facility] [address] [id number] [place] [address] Jun, [facility] [place] [facility] [address] [id number] [place] [address] Jun, [facility] [place] [facility] [address] [id number] [place] [address] Jun, [facility] [place] [facility] [address] [id number] [place] [address] Jun, [facility] [place] [facility] [address] [id number] [place] [address] May, [facility] [place] [facility] [address] [id number] [place] [address] May, [facility] [place] [facility] [address] [id number] [place] [address] May, [facility] [place] [facility] [address] [id number] [place] [address] May, [facility] [place] [facility] [address] [id number] [place] [address]- [address] May, [facility] [place] [facility] [address] [id number] [place] [address]- [address] May, [facility] [place] [facility] [address] [id number] [place] [address] May, [facility] [place] [facility] [address] [id number] [place] [address]- [address] May, [facility] [place] [facility] [address] [id number] [place] [address] May, [facility] [place] [facility] [address] [id number] [place] [address] May, [facility] [place] [facility] [address] [id number] [place] [address] May, [facility] [place] [facility] [address] [id number] [place] [address]- [address] May, [facility] [place] [facility] [address] [id number] [place] [address]- [address] May, [facility] [place] [facility] [address] [id number] [place] [address] May, [facility] [place] [facility] [address] [id number] [place] [address]- [address] May, [facility] [place] [facility] [address] [id number] [place] [address]- [address] May, 2013 [facility] [place] [facility] [address] [id number] [place] [address] May, [facility] [place] [facility] [address] [id number] [place] [address] May, [facility] [place] [facility] [address] [id number] [place] [address] Apr, [facility] [place] [facility] [address] [id number] [place] [address] Apr, [facility] [place] [facility] [address] [address] [id number] [place] [address] Apr, [facility] [place] [facility] [address] [id number] [place] [address] 0649 Apr, [facility] [place] [facility] [address] [id number] [place] [address] 4079 Apr, [facility] [place] [facility] [address] [id number] [place] [address] 5823 Apr, [facility] [place] [facility] [address] [id number] [place] [address]- 7641 Apr, [facility] [place] [facility] [address] [id number] [place] [address]- 1732 Apr, [facility] [place] [facility] [address] [id number] [place] [address]- 9290 Apr, [facility] [place] [facility] [address] [id number] [place] [address]- 8297 Apr, [facility] [place] [facility] [address] [id number] [place] [address]- 1126 Apr, [facility] [place] [facility] [address] [id number] [place] [address]- 5229 Apr, [facility] [place] [facility] [address] [id number] [place] [address]- 0961 March, [facility] [place] [facility] [address] [id number] [place] [address]- 5616 March, [facility] [place] [facility] [address] [id number] [place] [address]- 2565 March, [facility] [place] [facility] [address] [id number] [place] [address]- 7442 March, [facility] [place] [facility] [address] [id number] [place] [address] March, [facility] [place] [facility] [address] [id number] [place] [address]- 9987 March, [facility] [address] [id number] [place] [address]- 4201 March, [facility] [place] [facility] [address] [id number] [place] [address]- 4551 March, [facility] [address] [id number] [place] [address]- 6118 March, [facility] [place] [facility] [address] [id number] [place] [address]- 2979 March, [facility] [place] [facility] [address] [id number] [place] [address]- 4380 March, [facility] [place] [facility] [address] [id number] [place] [address]- 7652 Feb, [facility] [place] [facility] [address] [id number] [place] [address]- 8085 Feb, [facility] [place] [facility] [address] [id number] [place] [address]- 2302 Feb, [facility] [place] [facility] [address] [id number] [place] [address]- 9107 Feb, [facility] [place] [facility] [address] [id number] [place] [address]- 0681 Feb, [facility] [place] [facility] [address] [id number] [place] [address]- 9747 Feb, [facility] [place] [facility] [address] [id number] [place] [address]- 5484 Feb, [facility] [place] [facility] [address] [id number] [place] [address]- 6884 Feb, [facility] [place] [facility] [address] [id number] [place] [address]- 8614 Feb, [facility] [place] [facility] [address] [id number] [place] [address]- 7125 Feb, [facility] [place] [facility] [address] [id number] [place] [address]- 6355 Feb, [facility] [place] [facility] [address] [id number] [place] [address]- 3324 Feb, [facility] [place] [facility] [address] [id number] [place] [address]- 1921 Feb, [facility] [place] [facility] [address] [id number] [place] [address]- 2201 Feb, [facility] [place] [facility] [address] [id number] [place] [address]- 1363 Feb, [facility] [place] [facility] [address] [id number] [place] [address]- 3328 Feb, [facility] [place] [facility] [address] [id number] [place] [address]- 0264 Feb, [facility] [place] [facility] [address] [id number] [place] [address]- 3680 Feb, [facility] [place] [facility] [address] [id number] [place] [address]- 6795 Feb, [facility] [place] [facility] [address] [id number] [place] [address]- 7982 Feb, [facility] [place] [facility] [address] [id number] [place] [address]- 9632 Jan, [facility] [place] [facility] [address] [id number] [place] [address]- 2431 Jan, [facility] [place] [facility] [address] [id number] [place] [address]- 2568 25 Jan, 2014 [facility] [place] [facility] [address] [id number] [place] [address]- 4216 Jan, [facility] [place] [facility] [address] [id number] [place] [address]- 3345 Jan, [facility] [place] [facility] [address] [id number] [place] [address]- 4234 Jan, [facility] [place] [facility] [address] [id number] [place] [address]- 1294 18 Jan, 2014 [facility] [place] [facility] [address] [id number] [place] [address]- 0103 18 Jan, 2014 [facility] [place] [facility] [address] [id number] [place] [address]- 2714 Jan, [facility] [place] [facility] [address] [id number] [place] [address]- 0480 14 Jan, 2014 [facility] [place] [facility] [address] [id number] [place] [address]- 1306 Jan, [facility] [place] [facility] [address] [id number] [place] [address]- 3927 Jan, [facility] [place] [facility] [address] [id number] [place] [address]- 8379 Jan, [facility] [place] [facility] [address] [id number] [place] [address]- 3865 Jan, [facility] [place] [facility] [address] [id number] [place] [address]- 7518 Dec, [facility] [place] [facility] [address] [id number] [place] [address]- 1841 Dec, [facility] [place] [facility] [address] [id number] [place] [address]- 9682 Dec, [facility] [place] [facility] [address] [id number] [place] [address]- 7976 Dec, [facility] [place] [facility] [address] [id number] [place] [address]- 3496 Dec, [facility] [place] [facility] [address] [id number] [place] [address]- 9576 Dec, [facility] [place] [facility] [address] [id number] [place] [address]- 1766 Dec, [facility] [place] [facility] [address] [id number] [place] [address]- 6392 Dec, [facility] [place] [facility] [address] [id number] [place] [address]- 1589 Dec, [facility] [place] [facility] [address] [id number] [place] [address]- 6324 Nov, [facility] [place] [facility] [address] [id number] [place] [address]- 7819 Nov, [facility] [place] [facility] [address] [id number] [place] [address]- 2255 Nov, [facility] [place] [facility] [address] [id number] [place] [address]- 4346 Nov, [facility] [place] [facility] [address] [id number] [place] [address]- 1035 Oct, [facility] [place] [facility] [address] [id number] [place] [address]- 0697 Oct, [facility] [place] [facility] [address] [id number] [place] [address]- 1675 Oct, [facility] [place] [facility] [address] [id number] [place] [address]- 9590 Oct, [facility] [place] [facility] [address] [id number] [place] [address]- 7629 Oct, [facility] [place] [facility] [address] [id number] [place] [address]- 9213 Oct, [facility] [place] [facility] [address] [id number] [place] [address]- [address] 23 Oct, 2012 [facility] [address] [id number] [place] [address]- 3976 23 Oct, 2013 [facility] [address] [id number] [place] [address] 20 Oct, 2013 [facility] [address] [id number] [place] [address]- 1436 19 Oct, 2012 [facility] [address] [id number] [place] [address]- 3925 19 Oct, 2013 [facility] [address] [id number] [place] [address]269 18 Oct, 2013 [facility] [address] [id number] [place] [address]- 3946 18 Oct, 2013 [facility] [address] [id number] [place] [address]- 9355 17 Oct, 2013 [facility] [address] [id number] [place] [address]- 8753 17 Oct, 2013 [facility] [address] [id number] [place] [address]- 2862 17 Oct, 2013 [facility] [address] [id number] [place] [address]- 7236 17 Oct, 2013 [facility] [address] [id number] [place] [address]- 0231 17 Oct, 2013 [facility] [address] [id number] [place] [address]- 5381 17 Oct, 2013 [facility] [address] [id number] [place] [address]- 6355 11 Oct, 2013 [facility] [address] [id number] [place] [address]- 5116 11 Oct, 2013 [facility] [address] [id number] [place] [address]- 7399 Sep, [facility] [place] [facility] [address] [id number] [place] [address]- 3257 Sep, [facility] [place] [facility] [address] [id number] [place] [address]- 0713 Sep, [facility] [place] [facility] [address] [id number] [place] [address]- 8082 Sep, [facility] [place] [facility] [address] [id number] [place] [address]- 5731 Sep, [facility] [place] [facility] [address] [id number] [place] [address]- 3498 Sep, [facility] [place] [facility] [address] [id number] [place] [address]- 0691 Sep, [facility] [place] [facility] [address] [id number] [place] [address]- 8001 Sep, [facility] [place] [facility] [address] [id number] [place] [address]- 0101 Sep, [facility] [place] [facility] [address] [id number] [place] [address]- 0425 Sep, [facility] [place] [facility] [address] [id number][place] [address]- 3085 Sep, [facility] [place] [facility] [address] [id number][place] [address]- 3101 Sep, [facility] [place] [facility] [address] [id number][place] [address]- 3112 Aug, [facility] [place] [facility] [address] [id number] [place] [address]- 8042 Aug, [facility] [place] [facility] [address] [id number] [place] [address]- 6300 Aug, [facility] [place] [facility] [address] [id number] [place] [address]- 4597 Aug, [facility] [place] [facility] [address] [id number] [place] [address]- 8634 Aug, 2012 [facility] [place] [facility] [address] [id number] [place] [address]- 0503 23 Aug, 2012 [facility] [place] [facility] [address] [id number] [place] [address]- 5482 Aug, 2012 [facility] [place] [facility] [address] [id number] [place] [address]- 2161 Aug, 2012 [facility] [place] [facility] [address] [id number] [place] [address]- 9124 16 Aug, 2012 [facility] [place] [facility] [address] [id number] [place] [address]- 0612 16 Aug, 2012 [facility] [place] [facility] [address] [id number] [place] [address]- 2950 10 Aug, 2012 [facility] [place] [facility] [address] [id number] [place] [address]- 6071 10 Aug, 2012 [facility] [place] [facility] [address] [id number] [place] [address]- 9858 08 Aug, 2013 [facility] [place] [facility] [address] [id number] [place] [address]- 3368 07 Aug, 2012 [facility] [place] [facility] [address] [id number] [place] [address]- 2419 04 Aug, 2013 [facility] [place] [facility] [address] [id number] [place] [address]- 8637 Aug, [facility] [place] [facility] [address] [id number] [address]- 9000 Aug, [facility] [place] [facility] [address] [id number] [place] [address]- 6615 16 Jul, 2013 [facility] [place] [facility] [address] [id number] [place] [address]- 5406 Jun, [facility] [place] [facility] [address] [id number] [place] [address]- 5322 Jun, [facility] [place] [facility] [address] [id number] [place] [address]- 9070 May, [facility] [place] [facility] [address] [id number] [place] [address]- 6144 May, [facility] [place] [facility] [address] [id number] [place] [address]- 5953 Apr, [facility] [place] [facility] [address] [id number] [place] [address]- 6605 Apr, [facility] [place] [facility] [address] [id number] [place] [address]- 6400 Apr, [facility] [place] [facility] [address] [id number] [place] [address]- 3071 Apr, [facility] [place] [facility] [address] [id number] [place] [address]- 1625 Apr, [facility] [place] [facility] [address] [id number] [place] [address]- 8232 Apr, [facility] [place] [facility] [address] [id number] [place] [address]- 7610 Apr, [facility] [place] [facility] [address] [id number] [place] [address]- 6173 Apr, [facility] [place] [facility] [address] [id number] [place] [address]- 6975 Apr, [facility] [place] [facility] [address] [id number] [place] [address]- 2927 Apr, [facility] [place] [facility] [address] [id number] [place] [address]- 7894 Apr, [facility] [place] [facility] [address] [id number] [place] [address]- 5223 March, [facility] [place] [facility] [address] [id number] [place] [address]- 1429 March, [facility] [place] [facility] [address] [id number] [place] [address]- 1763 March, [facility] [address] [id number] [place] [address]- 6885 March, [facility] [address] [id number] [place] [address]- 9066 March, [facility] [address] [id number] [place] [address]- 7613 Feb, [facility] [address] [id number] [place] [address]- 5434 Feb, [facility] [address] [id number] [place] [address]- 8397 Jan, [facility] [address] [id number] [place] [address]- 6970 Jan, [facility] [address] [id number] [place] [address]- 6682 Jan, [facility] [address] [id number] [place] [address]- 1060 Jan, [facility] [address] [id number] [place] [address]- 2375 Jan, [facility] [address] [id number] [place] [address]- 6216 Dec, [facility] [address] [id number], [place] [address]- 2886 Dec, [facility] [place] [facility] [address] [id number], [place] [address]- 5682 Nov, [facility] [place] [facility] [address] [id number] [place] [address]- 9226 Nov, [facility] [place] [facility] [address] [id number] [place] [address]- 7263 Nov, [facility] [place] [facility] [address] [id number] [place] [address]- 4036 Nov, [facility] [place] [facility] [address] [id number] [place] [address]- 5132 15 Nov, 2012 [facility] [address] [id number] [place] [address]- 9986 14 Nov, 2012 [facility] [address] [id number] [place] [address]- 0894 14 Nov, 2012 [facility] [address] [id number] [place] [address]- 4315 11 Nov, 2012 [facility] [address] [id number] [place] [address]- 1992 Nov, [facility] [address] [id number] [place] [address]- 9505 Nov, [facility] [address] [id number] [place] [address]- 0396 Nov, [facility] [address] [id number] [place] [address]- 3146 Oct, [facility] [address] [id number] [place] [address]- 6073 Oct, [facility] [address] [id number] [place] [address]- 1894 Sep, [facility] [address] [id number] [place] [address]- 6956 Sep, [facility] [address] [id number] [place] [address]- 3278 Sep, [facility] [address] [id number] [place] [address]- 5457 Sep, [facility] [address] [id number] [place] [address]- 4874 Sep, [facility] [address] [id number] [place] [address]- 6842 Sep, [facility] [address] [id number] [place] [address]- 6695 Sep, [facility] [place] [facility] [address] [id number] [place] [address]- 2778 Sep, [facility] [place] [facility] [address] [id number] [place] [address]- 7820 Sep, [facility] [place] [facility] [address] [id number] [place] [address]- 3676 Sep, [facility] [place] [facility] [address] [id number] [place] [address]- 3239 Sep, [facility] [place] [facility] [address] [id number] [place] [address]- 3953 Sep, [facility] [place] [facility] [address] [id number] [place] [address]- 6769 Sep, [facility] [place] [facility] [address] [facility] [id number] [place] [address]- 3838 Sep, [facility] [place] [facility] [address] [id number][place] [address]- 6982 Aug, [facility] [place] [facility] [address] [facility] [id number][place] [address]- 5510 Aug, [facility] [place] [facility] [address] [facility] [id number][place] [address]- 1017 Aug, [facility] [place] [facility] [address] [facility] [id number], [place] [address]- 4758 Aug, [facility] [place] [facility] [address] [id number], [place] [address]- 7421 Aug, [facility] [place] [facility] [address] [facility] [id number], [place] [address]- 7436 Aug, [facility] [address] [facility] [id number][place] [address] Aug, [facility] [address] [facility] [id number][place] [address] Aug, [facility] [address] [id number], [place] [address] Aug, [facility] [address] [address] Aug, [facility] [id number] [address] Aug, [facility] [id number], [place] [address] Aug, [facility] [id number], [place] [address] Aug, [facility] [id number] [place] [address] Aug, [facility] [id number] [address] Aug, [facility] [id number] [address] Aug, [facility] [address]65[address], [place] [address] Aug, [facility] [address], [place] [address] Jul, [facility] [address], [place] [address] Jun, [facility] [address], [place] [address] Aug, [facility] [address], [place] [address] Aug, [facility] [address] [address] Aug, IMMUNIZATIONS No Known Immunizations SOCIAL HISTORY Never Assessed REASON FOR VISIT [facility] PLAN OF CARE VITAL SIGNS MEDICATIONS Unknown [...]
--- OUTSIDE RECORDS SUMMARY | 2018-05-03 19:47 | XMS REPORT ---
Author Author PIPPA DIMAS [facility] Address [address] [place] [address] Care Team Providers Care Access Analyst Name Role Phone MADDIEArjun PIPPA Unavailable PROBLEMS Type Condition ICD9-CM Code TIW80-VU Code Onset Dates Condition Status SNOMED Code Problem Mixed hyperlipidemia E78.2 Active 661897537 Problem Stasis dermatitis without varicosities I87.2 Active 52144946 Problem Edema of both legs R60.0 Active 358901246 Problem Morbid (severe) obesity due to excess calories E66.01 Active 325057364 Problem Chronic pain syndrome G89.4 Active 473015406 Problem Dependence on supplemental oxygen Z99.81 Active 400994555409 Problem 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 Active 63564226 Problem Gastroesophageal reflux disease without esophagitis K21.9 Active 761116985 Problem Urge incontinence of urine N39.41 Active 36062030 Problem Restless legs syndrome G25.81 Active 728205682 Problem Essential hypertension I10 Active 07192405 Problem Chronic stasis dermatitis I83.10 Active 39342881 Problem Renal insufficiency N28.9 Active 132071672 Problem Acquired hypothyroidism E03.9 Active 829094084 Problem Lymphedema I89.0 Active 609662916 Problem Lumbar pain M54.5 Active 116823633 Problem Nocturnal hypoxia G47.34 Active 254653027 ALLERGIES No Information ENCOUNTERS Encounter Location Date Diagnosis [facility] [address] [facility] [id number] [address] Feb, [facility] [address] [address] 9484 Jan, [facility] [id number] [address] 3763 Jan, [facility] [id number] [place] [address] 77093- 1271 Jan, Acquired hypothyroidism E03.9 ; Morbid (severe) obesity due to excess calories E66.01 ; Body mass index (BMI) 70 or greater, adult Z68.45 ; Cellulitis of left anterior lower leg L03.116 ; Restless legs syndrome G25.81 ; Nocturnal hypoxia G47.34 and Dependence on supplemental oxygen Z99.81 [facility] [id number] [place] [address] 37943- 6989 Jan, [facility] [id number] [place] [address] 53803- 8818 Dec, [facility] [address] 26238- 8693 Oct, [facility] [id number] [place] [address] 67207- 7288 Oct, [facility] [id number] [place] [address] 62234- 5113 Sep, [facility] [id number] [place] [address] 97337- 4417 Sep, [facility] [id number] [place] [address] 33501- 9609 Sep, Dental examination Z01.20 [facility] [id number] [place] [address] 42152- 0799 Sep, Morbid obesity due to excess calories E66.01 ; Body mass index (BMI) of 70 or greater in adult Z68.45 ; Stasis dermatitis without varicosities I87.2 ; Lymphedema I89.0 ; Renal insufficiency N28.9 ; Acquired hypothyroidism E03.9 ; Cellulitis L03.90 ; Bronchitis J40 and BMI 40.0-44.9, adult Z68.41 [facility] [id number] [place] [address] 16036- 7362 Aug, [facility] [id number] [place] [address] [id number] 20 Oct, 2017 Dental examination Z01.20 [facility] [address] [address]- 2331 Aug, [facility] [id number] [place] [address] 37266- 5582 26 Jul, 2017 [facility] [id number] [place] [address] 80442- 6520 19 Jul, 2017 [facility] [id number] [place] [address] 62775- 1626 18 Jul, 2017 [facility] [id number] [place] [address] 58112- 9481 Jul, [facility] [id number] [place] [address] 86228- 0317 Jul, [facility] [id number] [place] [address] 90072- 1769 Jun, [facility] [id number] [place] [address] 93617- 8468 Jun, Dependence on nocturnal oxygen therapy Z99.81 ; Morbid obesity due to excess calories E66.01 and Bronchitis J40 [facility] [id number] [place] [address] 36584- 5452 Jun, Restless legs syndrome G25.81 [facility] [id number] [place] [address] 61421- 4076 Jun, [facility] [id number] [place] [address] 31904- 6210 May, [facility] [id number] [place] [address] [id number] Apr, [facility] [id number] [place] [address] 84264- 3514 Apr, [facility] [id number] [place] [address] 38834- 9961 Apr, Essential hypertension I10 [facility] [id number] [place] [address] 71719- 1152 Apr, [facility] [id number] [place] [address] 11841- 0219 Apr, Chronic pain syndrome G89.4 and Urge incontinence of urine N39.41 [facility] [id number] [place] [address] 28055- 5590 March, Acquired hypothyroidism E03.9 [facility] [id number] [place] [address] 94443- 6681 March, [facility] [id number] [place] [address] 05186- 9318 March, [facility] [id number] [place] [address] 59960- 4387 March, Chronic pain syndrome G89.4 ; Essential [...] extremity L03.116 and Screening breast examination Z12.39 [facility] [id number] [place] [address] 84123- 0545 March, [facility] [id number] [place] [address] 95138- 3992 Feb, [facility] [id number] [place] [address] 32482- 7535 Feb, [facility] [id number] [place] [address] 19447- 6930 Feb, Chronic pain syndrome G89.4 [facility] [id number] [place] [address] 72279 -7724 Feb, Right foot pain M79.671 and Right foot sprain, initial encounter S93.601A [facility] [id number] [address]- 0765 Jan, [facility] [id number] [place] [address] 65274- 2428 Jan, [facility] [id number] [place] [address] 14363- 2044 Jan, Chronic pain syndrome G89.4 [facility] [id number] [place] [address] 72159- 6125 Jan, [facility] [id number] [place] [address] 60011- 3990 Dec, [facility] [id number] [place] [address] 20016- 5952 Dec, [facility] [id number] [place] [address] 87033- 2548 Dec, Pain in right knee M25.561 ; Pain in left knee M25.562 ; Essential hypertension I10 ; Chronic stasis dermatitis I83.10 ; Restless legs syndrome G25.81 ; Acquired hypothyroidism E03.9 ; Dependence on nocturnal oxygen therapy Z99.81 ; Mixed hyperlipidemia E78.2 ; Lymphedema I89.0 ; Chronic pain syndrome G89.4 ; Gastroesophageal reflux disease without esophagitis K21.9 and Urge incontinence of urine N39.41 [facility] [address], [place] [address]- 8863 Nov, Mixed hyperlipidemia E78.2 [facility] [id number] [place] [address] 39475- 7286 Nov, [facility] [id number] [place] [address] 27819- 7849 Nov, [facility] [id number] [place] [address] 86426- 3192 Nov, [facility] [address], [place] [address] -8754 Nov, Stasis ulcer, left I83.029 [facility] [id number] [address]- 3294 Nov, [facility] [address], [place] [address]- 2362 Oct, [facility] [address], [place] [address]- 0852 Oct, [facility] [address], [place] [address]- 5808 Oct, [facility] [address], [place] [address]- 1657 Sep, [facility] [address], [place] [address]- 4210 Sep, [address] [id number] Sep, [facility] [address], [place] [address]- 6139 Aug, [facility] [address], [place] [address]- 6451 Jul, [facility] [address], [place] [address]- 6100 Jul, [facility] [address], [place] [address]- 2999 Jul, [facility] [address], [place] [address]- 6715 Jul, [facility] [address], [place] [address]- 5348 Jul, Chest pain, unspecified type R07.9 ; Dyspnea on exertion R06.09 ; Essential hypertension I10 ; Hyperlipidemia, unspecified hyperlipidemia type E78.5 ; Left bundle branch block I44.7 and Hypothyroidism, unspecified type E03.9 [facility] [id number] [address] Jun, Fever, unspecified fever cause R50.9 ; Headache, unspecified headache type R51 ; SOB (shortness of breath) R06.02 and Strep pharyngitis J02.0 [place] [facility] [address] 05523- 4618 Jun, [facility] [address] 95211- 8612 Jun, [facility] [address] 57392- 1896 Jun, Essential hypertension I10 ; Mixed hyperlipidemia E78.2 and Acquired hypothyroidism E03.9 [facility] [address] 53847- 8497 Jun, Edema of both legs R60.0 ; Hypoxia R09.02 and Essential hypertension I10 [address] 89983- 6451 Jun, [facility] [address] 01811- 7015 Jun, Edema of both legs R60.0 ; Hypoxia R09.02 and Essential hypertension I10 [facility] [address] 35835- 0333 Jun, Essential hypertension I10 ; Dependence on supplemental oxygen Z99.81 and Edema of both legs R60.0 [place] [facility] [address] 95875- 3664 May, Lumbar pain M54.5 ; Essential hypertension I10 ; Edema of both legs R60.0 ; Stasis dermatitis without varicosities I87.2 and Left knee pain M25.562 [place] [facility] [address] 37921- 1194 May, [place] [address] 65046- 9133 May, [place] [address] 64219- 3885 May, [facility] [id number] [place] [address] 56339- 9873 Apr, [facility] [id number] [place] [address] 73307- 0267 Apr, [facility] [id number] [place] [address] 79841- 5694 March, [place] [facility] [address] 88699- 0159 March, Lymphedema I89.0 ; Morbid obesity due to excess calories E66.01 ; Alteration in mobility due to weakness R53.1 and Hypoxia R09.02 [facility] [id number] [place] [address] 37550- 2725 March, Abdominal wall mass R19.00 [facility] [id number] [place] [address] 32476- 0994 March, [facility] [id number] [place] [address] 43997- 8867 March, Abdominal wall mass R19.00 ; Lower abdominal pain R10.30 ; Alteration in mobility due to weakness R53.1 ; Hypoxia R09.02 and Lymphedema I89.0 [facility] [id number] [place] [address] 70828- 7217 Feb, [facility] [id number] [place] [address] 28577- 0536 Feb, Acquired hypothyroidism E03.9 ; Dependence on machine for supplemental oxygen V46.2 ; Restless legs syndrome G25.81 ; Essential hypertension I10 ; Renal insufficiency N28.9 ; Chronic stasis dermatitis I83.10 ; Mixed hyperlipidemia E78.2 ; Other chronic pain 338.29 and Cellulitis of left lower extremity L03.116 [facility] [id number] [place] [address] 46614- 7489 Feb, [facility] [id number] [place] [address] 11197- 1049 Feb, [facility] [id number] [place] [address] 91548 -4106 Feb, Shortness of breath R06.02 and Bronchitis J40 [facility] [id number] [place] [address] 64644- 7482 Jan, Dependence on supplemental oxygen Z99.81 [facility] [address] 01602- 5236 Jan, [facility] [id number] [place] [address] 71866- 6521 Dec, [facility] [address] 73482- 7841 Dec, [facility] [address] 01341- 8029 Nov, Osteoarthritis of knees, bilateral M17.0 [facility] [id number] [place] [address] 93232- 2539 Nov, Dependence on machine for supplemental oxygen V46.2 ; Nocturnal hypoxia G47.34 and Urgency of urination R39.15 [facility] [id number] [place] [address] 09749- 5396 Nov, [facility] [id number] [place] [address] 30146- 6798 Oct, Pain in right knee M25.561 and Pain in left knee M25.562 [address] [id number] [place] [address] 09640- 5038 Oct, Acquired hypothyroidism E03.9 ; Renal insufficiency N28.9 and Chronic stasis dermatitis I83.10 [facility] [id number] [place] [address] 75357- 6152 Oct, [facility] [id number] [place] [address] 17302- 5882 Sep, Cellulitis L03.90 ; Left knee pain M25.562 ; Essential hypertension I10 ; Lymphedema I89.0 ; Lumbar pain M54.5 ; Morbid obesity due to excess calories E66.01 and Renal insufficiency N28.9 [facility] [id number] [place] [address] 35034- 9160 Sep, Cellulitis L03.90 and Lymphedema I89.0 [facility] [address] 04305- 1615 Sep, [facility] [address] 58842- 1730 Sep, [place] [address] 31681- 5404 Sep, Left knee pain M25.562 ; Lumbar pain M54.5 ; Restless legs syndrome G25.81 ; Acquired hypothyroidism E03.9 and Essential hypertension I10 [place] [facility] [address] 95338- 4829 Jul, [facility] [address] 80338- 2373 Jun, [facility] [address] 04988- 7107 May, [facility] [id number] [place] [address] 96796- 6645 May, [facility] [address] 00505- 4300 May, Hypertension 997.91 ; Restless legs syndrome [RLS] 333.94 ; Unspecified venous (peripheral) insufficiency 459.81 ; Unspecified hypothyroidism 244.9 and Other chronic pain 338.29 [facility] [id number] [place] [address] 07772- 0264 Apr, [facility] [id number] [place] [address] 16550- 7609 Apr, [facility] [id number], [place] [address]- 5515 Apr, Restless legs syndrome [RLS] 333.94 ; Shortness of breath 786.05 ; Unspecified venous (peripheral) insufficiency 459.81 ; Unspecified hypothyroidism 244.9 ; Obesity, unspecified 278.00 ; Other chronic pain 338.29 ; Hypertension 997.91 and Hyperlipidemia 272.4 [facility] [id number] [place] [address] 29408- 3750 Feb, [facility] [id number] [place] [address] 17449- 9903 Feb, [facility] [id number] [place] [address] 99270- 5949 Jan, [facility] [id number] [place] [address] 401706- 8215 Jan, [facility] [id number] [place] [address] 879578- 5551 Jan, [facility] [id number] [place] [address] 31387- 2415 Jan, [facility] [id number] [place] [address] 01608878- 5600 Jan, [facility] [address], [place] [address]- 8567 Jan, [facility] [id number] [place] [address] 30979259- 2568 Jan, [facility] [address] 1730 Jan, [facility] [id number] [place] [address] 05114- 5939 Jan, [facility] [id number] 5956 Jan, [facility] [id number] [place] [address] 09491- 1248 Jan, [facility] [place] [facility] [address] [id number] [place] [address]- 0314 11 Jan, 2015 [facility] [place] [facility] [address] [id number] [place] [address]- 2524 10 Jan, 2015 [facility] [place] [facility] [address] [id number] [place] [address]- 4331 Jan, [facility] [place] [facility] [address] [id number] [place] [address]- 5838 Dec, [facility] [place] [facility] [address] [id number] [place] [address]- 0581 Dec, [facility] [place] [facility] [address] [id number] [place] [address]- 6932 Nov, [facility] [place] [facility] [address] [id number] [place] [address]- 3009 Nov, [facility] [place] [facility] [address] [id number] [place] [address]- 5201 Nov, [facility] [place] [facility] [address] [id number] [place] [address]- 8982 Nov, [facility] [place] [facility] [address] [id number] [place] [address]- 5938 Nov, [facility] [place] [facility] [address] [id number] [address]- 0626 Nov, [facility] [place] [facility] [address] [id number], [place] [address]- 4419 Nov, [facility] [place] [facility] [address] [id number] [place] [address]- 5737 Nov, [facility] [place] [facility] [address] [id number] [place] [address]- 4953 Nov, [facility] [place] [facility] [address] [id number], [place] [address]- 2926 14 Nov, 2014 [facility] [place] [facility] [address] [id number] [address]- 6535 14 Nov, 2014 [facility] [place] [facility] [address] [id number] [place] [address]- 2889 Nov, [facility] [place] [facility] [address] [id number], [place] [address]- 3635 Nov, [facility] [place] [facility] [address] [facility] [id number] [place] [address]- 9342 Nov, [facility] [place] [facility] [address] [id number] [place] [address]- 8368 Nov, [facility] [place] [facility] [id number] [place] [address], [place] [address]- 5476 Nov, [facility] [place] [facility] [address] [id number] [place] [address]- 1359 Oct, [facility] [place] [facility] [address] [facility] [id number] [address]- 9194 Oct, [facility] [place] [facility] [address] [id number] [place] [address]- 3688 Sep, [facility] [place] [facility] [address] [id number] [place] [address]- 3747 Aug, [facility] [place] [facility] [address] [facility] [id number] [address]- 3610 Aug, [facility] [place] [facility] [address] [id number] [address]- 3370 Aug, [facility] [place] [facility] [address] [id number], [place] [address]- 5809 Aug, [facility] [place] [facility] [address] [id number] [place] [address]- 6185 Aug, [facility] [place] [facility] [address] [facility] [id number], [place] [address]- 3461 Aug, [facility] [place] [facility] [address] [facility] [id number], [place] [address]- 9980 Aug, [facility] [place] [facility] [address] [id number] [place] [address]- 1173 Aug, [facility] [place] [facility] [address] [id number] [place] 5158 Aug, [facility] [place] [facility] [address] [id number] [place] [address]- 2296 Aug, [facility] [place] [facility] [address] [id number] [place] [address]- 1733 Jun, [facility] [place] [facility] [address] [id number] [place] [address]- 8174 Jun, [facility] [place] [facility] [address] [id number] [place] [address]- 4486 Jun, [facility] [place] [facility] [address] [id number] [place] [address]- 4695 Jun, [facility] [place] [facility] [address] [id number] [place] [address] Jun, [facility] [place] [facility] [address] [id number] [place] [address] Jun, [facility] [place] [facility] [address] [id number] [place] [address] Jun, [facility] [place] [facility] [address] [id number] [place] [address] Jun, [facility] [place] [facility] [address] [id number] [place] [address] Jun, [facility] [place] [facility] [address] [id number] [place] [address] Jun, [facility] [place] [facility] [address] [id number] [place] [address] May, [facility] [place] [facility] [address] [id number] [place] [address] May, [facility] [place] [facility] [address] [id number] [place] [address] May, 2013 [facility] [place] [facility] [address] [id number] [place] [address] May, 2013 [facility] [place] [facility] [address] [id number] [place] [address] May, [facility] [place] [facility] [address] [id number] [place] [address] May, [facility] [place] [facility] [address] [id number] [place] [address] May, 2013 [facility] [place] [facility] [address] [id number] [place] [address] May, [facility] [place] [facility] [address] [id number] [place] [address] May, [facility] [place] [facility] [address] [id number] [place] [address] May, 2013 [facility] [place] [facility] [address] [id number] [place] [address] May, 2013 [facility] [place] [facility] [address] [id number] [place] [address] May, 2013 [facility] [place] [facility] [address] [id number] [place] [address] May, [facility] [place] [facility] [address] [id number] [place] [address] May, 2013 [facility] [place] [facility] [address] [id number] [place] [address] May, 2013 [facility] [place] [facility] [address] [id number] [place] [address] May, [facility] [place] [facility] [address] [id number] [place] [address] May, [facility] [place] [facility] [address] [id number] [place] [address] May, 2013 [facility] [place] [facility] [address] [id number] [place] [address] Apr, [facility] [place] [facility] [address] [id number] [place] [address] Apr, [facility] [place] [facility] [address] [id number] [place] [address] Apr, [facility] [place] [facility] [address] [id number] [place] [address] Apr, [facility] [place] [facility] [address] [id number] [place] [address] Apr, [facility] [place] [facility] [address] [id number] [place] [address] Apr, [facility] [place] [facility] [address] [id number] [place] [address] Apr, [facility] [place] [facility] [address] [id number] [place] [address] Apr, [facility] [place] [facility] [address] [id number] [place] [address] Apr, [facility] [place] [facility] [address] [id number] [place] [address] Apr, [facility] [place] [facility] [address] [id number] [place] [address] 1051 Apr, [facility] [place] [facility] [address] [id number] [place] [address] 2929 Apr, [facility] [place] [facility] [address] [id number] [place] [address] March, [facility] [place] [facility] [address] [id number] [place] [address] 5855 March, [facility] [place] [facility] [address] [id number] [place] [address] 6163 March, [facility] [place] [facility] [address] [id number] [place] [address]- 9020 March, [facility] [place] [facility] [address] [id number] [place] [address] 4980 March, [facility] [place] [facility] [address] [id number] [place] [address] 8674 March, [facility] [place] [facility] [address] [id number] [place] [address] 8812 March, [facility] [place] [facility] [address] [id number] [place] [address]- 3119 March, [facility] [place] [facility] [address] [id number] [place] [address] 3[address] March, [facility] [place] [facility] [address] [id number] [place] [address] 0157 March, [facility] [place] [facility] [address] [id number] [place] [address] 4067 March, [facility] [place] [facility] [address] [id number] [place] [address] 1977 Feb, [facility] [place] [facility] [address] [id number] [place] [address]- 9630 Feb, [facility] [place] [facility] [address] [id number] [place] [address]- 0557 Feb, [facility] [place] [facility] [address] [id number] [place] [address]- 2568 Feb, [facility] [place] [facility] [address] [id number] [place] [address]- 9766 Feb, [facility] [place] [facility] [address] [id number] [place] [address]- 8261 Feb, [facility] [place] [facility] [address] [id number] [place] [address]- 4232 Feb, [facility] [place] [facility] [address] [id number] [place] [address]- 4315 Feb, [facility] [place] [facility] [address] [id number] [place] [address]- 8433 Feb, [facility] [place] [facility] [address] [id number] [place] [address]- 0198 Feb, [facility] [place] [facility] [address] [id number] [place] [address]- 2867 Feb, [facility] [place] [facility] [address] [id number] [place] [address]- 5120 Feb, [facility] [place] [facility] [address] [id number] [place] [address]- 5922 Feb, [facility] [place] [facility] [address] [id number] [place] [address] 1958 Feb, [facility] [place] [facility] [address] [id number] [place] [address]- 8381 Feb, [facility] [place] [facility] [address] [id number] [place] [address]- 3353 Feb, [facility] [place] [facility] [address] [id number] [place] [address]- 4567 Feb, [facility] [place] [facility] [address] [id number] [place] [address]- 4486 Feb, [facility] [place] [facility] [address] [id number] [place] [address]- 0381 Feb, [facility] [place] [facility] [address] [id number] [place] [address]- 0669 Feb, [facility] [place] [facility] [address] [id number] [place] [address]- 4827 Jan, [facility] [place] [facility] [address] [id number] [place] [address]- 3368 Jan, [facility] [place] [facility] [address] [id number] [place] [address]- 4243 Jan, [facility] [place] [facility] [address] [id number] [place] [address]- 8286 Jan, [facility] [place] [facility] [address] [id number] [place] [address]- 4453 24 Jan, 2014 [facility] [place] [facility] [address] [id number] [place] [address]- 7742 24 Jan, 2014 [facility] [place] [facility] [address] [id number] [place] [address]- 4861 18 Jan, 2014 [facility] [place] [facility] [address] [id number] [place] [address]- 2698 18 Jan, 2014 [facility] [place] [facility] [address] [id number] [place] [address]- 5995 14 Jan, 2014 [facility] [place] [facility] [address] [id number] [place] [address]- 2809 14 Jan, 2014 [facility] [place] [facility] [address] [id number] [place] [address]- 5139 Jan, [facility] [place] [facility] [address] [id number] [place] [address]- 1944 Jan, [facility] [place] [facility] [address] [id number] [place] [address]- 9785 05 Jan, 2014 [facility] [place] [facility] [address] [id number] [place] [address]- 7895 05 Jan, 2014 [facility] [place] [facility] [address] [id number] [place] [address]- 3121 Dec, [facility] [place] [facility] [address] [id number] [place] [address]- 8654 Dec, [facility] [place] [facility] [address] [id number] [place] [address]- 1442 Dec, [facility] [place] [facility] [address] [id number] [place] [address]- 7371 Dec, [facility] [place] [facility] [address] [id number] [place] [address]- 0056 Dec, [facility] [place] [facility] [address] [id number] [place] [address]- 4052 Dec, [facility] [address] [id number] [place] [address]- 9635 Dec, [facility] [place] [facility] [address] [id number] [place] [address]- 8819 Dec, [facility] [place] [facility] [address] [id number] [place] [address]- 1316 Dec, [facility] [place] [facility] [address] [id number] [place] [address]- 2179 Nov, [facility] [place] [facility] [address] [id number] [place] [address]- 8820 Nov, [facility] [place] [facility] [address] [id number] [place] [address]- 9074 Nov, [facility] [place] [facility] [address] [id number] [place] [address]- 6583 Nov, [facility] [place] [facility] [address] [id number] [place] [address]- 4341 Oct, [facility] [place] [facility] [address] [id number] [place] [address]- 5739 Oct, [facility] [place] [facility] [address] [id number] [place] [address]- 7358 Oct, [facility] [place] [facility] [address] [id number], [place] [address]- 0329 Oct, [facility] [place] [facility] [address] [id number], [place] [address]- 1020 Oct, [facility] [place] [facility] [address] [id number] [place] [address]- 2540 Oct, [facility] [place] [facility] [address] [id number] [place] [address]- 4962 Oct, [facility] [place] [facility] [address] [id number] [place] [address]- 9065 Oct, [facility] [place] [facility] [address] [id number] [place] [address]- 3069 20 Oct, 2012 [facility] [address] [id number] [place] [address]- 4213 19 Oct, 2013 [facility] [address] [id number] [place] [address] 19 Oct, 2013 [facility] [address] [id number] [place] [address]- 2764 18 Oct, 2012 [facility] [address] [id number] [place] [address]376 18 Oct, 2013 [facility] [address] [id number] [place] [address]395 17 Oct, 2013 [facility] [address] [id number] [place] [address]- 3535 17 Oct, 2013 [facility] [address] [id number] [place] [address]- 7017 17 Oct, 2013 [facility] [address] [id number] [place] [address]- 2277 17 Oct, 2013 [facility] [address] [id number] [place] [address]- 8317 17 Oct, 2013 [facility] [address] [id number] [place] [address]- 3356 17 Oct, 2013 [facility] [address] [id number] [place] [address]- 9264 11 Oct, 2013 [facility] [address] [id number] [place] [address]- 4865 11 Oct, 2013 [facility] [address] [id number] [place] [address]- 8874 27 Sep, 2013 [facility] [address] [id number] [place] [address]- 0646 27 Sep, 2013 [facility] [address] [id number] [place] [address]- 9998 Sep, [facility] [place] [facility] [address] [id number] [place] [address]- 8137 Sep, [facility] [place] [facility] [address] [id number] [place] [address]- 4579 Sep, [facility] [place] [facility] [address] [id number] [place] [address]- 2623 Sep, [facility] [place] [facility] [address] [id number] [place] [address]- 7395 Sep, [facility] [place] [facility] [address] [id number] [place] [address]- 2870 Sep, [facility] [place] [facility] [address] [id number] [place] [address]- 4292 Sep, [facility] [place] [facility] [address] [id number] [place] [address]- 6349 Sep, [facility] [place] [facility] [address] [id number] [place] [address]- 8171 Sep, [facility] [place] [facility] [address] [id number] [place] [address]- 1297 Sep, [facility] [place] [facility] [address] [id number], [place] [address]- 4175 Aug, [facility] [place] [facility] [address] [id number], [place] [address]- 8616 Aug, [facility] [place] [facility] [address] [id number], [place] [address]- 7858 Aug, [facility] [place] [facility] [address] [id number] [place] [address]- 6517 Aug, [facility] [place] [facility] [address] [id number], [place] [address]- 4176 Aug, [facility] [place] [facility] [address] [id number], [place] [address]- 9924 Aug, [facility] [place] [facility] [address] [id number] [place] [address]- 3597 Aug, 2012 [facility] [place] [facility] [address] [id number] [place] [address]- 0355 22 Aug, 2012 [facility] [place] [facility] [address] [id number] [place] [address]- 0164 16 Aug, 2012 [facility] [place] [facility] [address] [id number] [place] [address]- 1570 16 Aug, 2012 [facility] [place] [facility] [address] [id number] [place] [address]- 8830 10 Aug, 2012 [facility] [place] [facility] [address] [id number] [place] [address]- 5039 10 Aug, 2012 [facility] [place] [facility] [address] [id number] [place] [address]- 1309 08 Aug, 2012 [facility] [place] [facility] [address] [id number] [place] [address]- 5617 07 Aug, 2012 [facility] [place] [facility] [address] [id number] [place] [address]- 1461 04 Aug, 2013 [facility] [place] [facility] [address] [id number] [place] [address]- 7389 Aug, [facility] [place] [facility] [address] [id number] [place] [address]- 8973 Aug, [facility] [place] [facility] [address] [id number] [place] [address]- 0279 Jul, [facility] [place] [facility] [address] [id number] [place] [address]- 0539 Jun, [facility] [place] [facility] [address] [id number] [place] [address]- 4484 Jun, [facility] [place] [facility] [address] [id number] [place] [address]- 4234 May, [facility] [place] [facility] [address] [id number] [place] [address]- 9183 May, [facility] [place] [facility] [address] [id number] [place] [address]- 9078 26 Apr, 2013 [facility] [place] [facility] [address] [id number] [place] [address]- 0583 Apr, [facility] [place] [facility] [address] [id number] [place] [address]- 2048 Apr, [facility] [place] [facility] [address] [id number] [place] [address]- 2707 Apr, [facility] [place] [facility] [address] [id number] [place] [address]- 8111 18 Apr, 2013 [facility] [place] [facility] [address] [id number] [place] [address]- 0663 10 Apr, 2013 [facility] [place] [facility] [address] [id number] [place] [address]- 6210 07 Apr, 2013 [facility] [place] [facility] [address] [id number] [place] [address]- 8687 07 Apr, 2013 [facility] [place] [facility] [address] [id number] [place] [address]- 4330 06 Apr, 2013 [facility] [place] [facility] [address] [id number] [place] [address]- 5642 04 Apr, 2013 [facility] [place] [facility] [address] [id number] [place] [address]- 0723 Apr, [facility] [place] [facility] [address] [id number] [place] [address]- 9209 March, [facility] [place] [facility] [address] [id number] [place] [address]- 3389 March, [facility] [place] [facility] [address] [id number] [place] [address]- 7824 March, [facility] [place] [facility] [address] [id number] [place] [address]- 5175 March, [facility] [place] [facility] [address] [id number] [place] [address]- 5382 March, [facility] [address] [id number] [place] [address]- 4947 Feb, [facility] [address] [id number] [place] [address]- 9934 Feb, [facility] [address] [id number] [place] [address]- 7471 Jan, [facility] [place] [facility] [address] [id number] [place] [address]- 5128 Jan, [facility] [address] [id number] [place] [address]- 9782 Jan, [facility] [address] [id number] [place] [address]- 1775 Jan, [facility] [address] [id number] [place] [address]- 6813 Jan, [facility] [place] [facility] [address] [id number] [place] [address]- 2932 Dec, [facility] [address] [id number] [place] [address]- 1328 Dec, [facility] [place] [facility] [address] [id number] [place] [address]- 1248 Nov, [facility] [place] [facility] [address] [id number], [place] [address]- 2792 Nov, [facility] [place] [facility] [address] [id number], [place] [address]- 1576 18 Nov, 2012 [facility] [place] [facility] [address] [id number] [place] [address]- 4758 16 Nov, 2012 [facility] [place] [facility] [address] [id number] [place] [address]- 8456 15 Nov, 2012 [facility] [place] [facility] [address] [id number] [place] [address]- 2279 14 Nov, 2012 [facility] [place] [facility] [address] [id number] [place] [address]- 7330 14 Nov, 2012 [facility] [address] [id number] [place] [address]- 5389 Nov, [facility] [address] [id number] [place] [address]- 0891 Nov, [facility] [address] [id number] [place] [address]- 9233 Nov, [facility] [address] [id number] [place] [address]- 5743 Nov, [facility] [address] [id number] [place] [address]- 1235 Oct, [facility] [address] [id number] [place] [address]- 3640 Oct, [facility] [address] [id number] [place] [address]- 8159 Sep, [facility] [address] [id number] [place] [address]- 9268 Sep, [facility] [address] [id number] [place] [address]- 9501 Sep, [facility] [address] [id number] [place] [address]- 2303 Sep, [facility] [address] [id number] [place] [address]- 0215 Sep, [facility] [address] [id number] [place] [address]- 6258 Sep, [facility] [address] [id number] [place] [address]- 2972 Sep, [facility] [address] [id number] [place] [address]- 8645 Sep, [facility] [address] [id number] [place] [address]- 7100 Sep, [facility] [place] [facility] [address] [id number] [place] [address]- 0527 Sep, [facility] [place] [facility] [address] [id number] [place] [address]- 8378 Sep, [facility] [place] [facility] [address] [id number] [place] [address]- 7692 Sep, [facility] [place] [facility] [address] [id number] [place] [address]- 3764 Sep, [facility] [place] [facility] [address] [id number] [place] [address]- 3898 Sep, [facility] [place] [facility] [address] [id number] [place] [address]- 3719 Aug, [facility] [place] [facility] [address] [facility] [id number] [place] [address]- 7142 Aug, [facility] [place] [facility] [address] [id number], [place] [address]- 2078 Aug, [facility] [place] [facility] [address] [facility] [id number] [place] [address]- 4698 Aug, [facility] [place] [facility] [address] [facility] [id number], [place] [address]- 2870 Aug, [facility] [place] [facility] [address] [facility] [id number], [place] [address]- 7642 Aug, [facility] [place] [facility] [address] [id number], [place] [address]- 4857 Aug, [facility] [place] [facility] [address] [id number], [place] [address]- 6682 Aug, [facility] [place] [facility] [address] [facility] [id number], [place] [address]- 6673 Aug, [facility] [place] [facility] [address] [facility] [id number], [place] [address]- 2581 Aug, [facility] [place] [facility] [address] [id number], [place] [address]- 4111 Aug, [facility] [id number], [place] [address]- 5255 Aug, [facility] [id number], [place] [address]- 8525 Aug, [facility] [id number], [place] [address]- 5133 Aug, [facility] [id number] [place] [address] 85040- 4488 Aug, [facility] [id number] [place] [address] 23059- 2820 Aug, [facility] [id number] [place] [address] 93506- 6336 Aug, [facility] [id number] [place] [address] 43277- 6240 Jul, [facility] [id number] [place] [address] 73414- 1731 Jun, [facility] [id number] [place] [address] 64167- 1514 Aug, [facility] [id number], [place] [address]- 0627 Aug, [facility] [id number], [place] [address]- 0048 Aug, IMMUNIZATIONS No Known Immunizations SOCIAL HISTORY Never Assessed REASON FOR VISIT Medication question PLAN OF CARE VITAL SIGNS MEDICATIONS Unknown [...]
--- OUTSIDE RECORDS SUMMARY | 2018-05-03 19:47 | XMS REPORT ---
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 Forensics Investigator Name Role Phone PIPPA DIMAS Unavailable PROBLEMS Type Condition ICD9-CM Code SJV10-KX Code Onset Dates Condition Status SNOMED Code Problem Dependence on nocturnal oxygen therapy Z99.81 Active 85826661539544 Problem Left knee pain M25.562 Active 40001933 Problem Essential hypertension I10 Active 98887509 Problem Lumbar pain M54.5 Active 434298219 Problem Restless legs syndrome G25.81 Active 969474418 Problem Acquired hypothyroidism E03.9 Active 469334632 Problem Chronic stasis dermatitis I83.10 Active 70094862 Problem Renal insufficiency N28.9 Active 144835432 Problem Edema of both legs R60.0 Active 520128320 Problem Morbid obesity due to excess calories E66.01 Active 357780992 Problem Stasis dermatitis without varicosities I87.2 Active 81449649 Problem Cellulitis L03.90 Active 474414007 Problem 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 Active 02461141 Problem Dependence on supplemental oxygen Z99.81 Active 087993236839 Problem 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 Active 97155443 Problem Morbid (severe) obesity due to excess calories E66.01 Active 570826780 Problem Bronchitis J40 Active 10608577 Problem Pain in right knee M25.561 Active 72152025 Problem Pain in left knee M25.562 Active [id number] Problem Lymphedema I89.0 Active 947225004 Problem Urge incontinence of urine N39.41 Active 25481246 Problem Chronic pain syndrome G89.4 Active 992593373 Problem Body mass index (BMI) of 70 or greater in adult Z68.45 Active 945902935 Problem Gastroesophageal reflux disease without esophagitis K21.9 Active 233053643 Problem Mixed hyperlipidemia E78.2 Active 453734772 Problem Other chronic pain 338.29 Active 66818408 Problem Nocturnal hypoxia G47.34 Active 497189003 Problem Cellulitis of left lower extremity L03.116 Active 666642629 Problem Alteration in mobility due to weakness R53.1 Active 742210589 Problem Abdominal wall mass R19.00 Active 437916336 Problem Hypoxia R09.02 Active 006628570 Problem Lower abdominal pain R10.30 Active 83951664 ALLERGIES No Information ENCOUNTERS Encounter Location Date Diagnosis [place] [address] [address] 27 Jan, 2018 [facility] [address] [address]86- 2943 Jan, [place] [address] 71445- 7184 Dec, [place] [address] 53289- 6196 15 Oct, 2017 [place] [address] 77535- 1905 07 Oct, 2017 [place] [address] 31032- 0317 Sep, [place] [address] [place] [id number] [place] [address] 69116- 9050 16 Sep, 2017 [place] [address] [place] [id number] [place] [address] 78620- 0302 16 Sep, 2017 Dental examination Z01.20 [place] [address] 37110- 8576 01 Sep, 2017 Morbid obesity due to excess calories E66.01 ; Body mass index (BMI) of 70 or greater in adult Z68.45 ; Stasis dermatitis without varicosities I87.2 ; Lymphedema I89.0 ; Renal insufficiency N28.9 ; Acquired hypothyroidism E03.9 ; Cellulitis L03.90 ; Bronchitis J40 and BMI 40.0-44.9, adult Z68.41 [place] [address] 50892- 0388 Aug, [facility] [address] [id number] [id number] Aug, Dental examination Z01.20 [facility] [address], [place] [address] 4418 Aug, [facility] [id number] [place] [address] 93926- 3090 Jul, [facility] [id number] [place] [address] 32815- 9954 Jul, [facility] [address] [id number] [place] [address] 53547- 3218 18 Jul, 2017 [facility] [id number] [place] [address] 60448- 4753 Jul, [facility] [id number] [place] [address] 77953- 5307 Jul, [facility] [id number] [place] [address] 92538- 7747 Jun, [facility] [id number] [place] [address] 68845- 7381 Jun, Dependence on nocturnal oxygen therapy Z99.81 ; Morbid obesity due to excess calories E66.01 and Bronchitis J40 [facility] [address] [place] [address] 32342- 5520 Jun, Restless legs syndrome G25.81 [facility] [address], [place] [address]- 5935 Jun, [facility] [id number] [place] [address] 26742- 7419 May, [facility] [address] [place] [id number] [place] [address] [id number] Apr, [facility] [id number] [place] [address] 17001- 5440 Apr, [facility] [address], [place] [address]- 6798 Apr, Essential hypertension I10 [facility] [address] [place] [id number] [place] [address] 40550- 4299 Apr, [facility] [address] [place] [id number] [place] [address] 40788- 7783 13 Apr, 2017 Chronic pain syndrome G89.4 and Urge incontinence of urine N39.41 [facility] [address] [place] [id number] [place] [address] 94449- 5515 March, Acquired hypothyroidism E03.9 [place] [address] [place] [id number] [place] [address] 07191- 0752 March, [facility] [address] [place] [id number] [place] [address] 91473- 8390 March, [place] [address] [place] [id number] [place] [address] 86463- 9002 March, Chronic pain syndrome G89.4 ; Essential [...] extremity L03.116 and Screening breast examination Z12.39 [place] [id number] [place] [address] 14124- 2730 March, [facility] [address] [place] [id number] [place] [address] 03461- 8490 Feb, [place] [address] [place] [id number] [place] [address] 15976- 9050 Feb, [facility] [address] [place] [address] [id number] [place] [address] 58330- 2776 Feb, Chronic pain syndrome G89.4 [facility] [id number] [place] [address] 88324 -2620 Feb, Right foot pain M79.671 and Right foot sprain, initial encounter S93.601A [place] [address] [place] [id number] [place] [address] 90657- 1278 Jan, [facility] [address] [place] [id number] [place] [address] 12620- 0935 Jan, [place] [address] [place] [id number] [place] [address] 09341- 3485 Jan, Chronic pain syndrome G89.4 [place] [address] [place] [id number] [place] [address] 61807- 4903 Jan, [place] [address] [place] [id number] [place] [address] 87786- 4947 Dec, [place] [address] [place] [id number] [place] [address] 26816- 4419 Dec, [place] [address] [place] [id number] [place] [address] 00982- 9595 Dec, Pain in right knee M25.561 ; Pain in left knee M25.562 ; Essential hypertension I10 ; Chronic stasis dermatitis I83.10 ; Restless legs syndrome G25.81 ; Acquired hypothyroidism E03.9 ; Dependence on nocturnal oxygen therapy Z99.81 ; Mixed hyperlipidemia E78.2 ; Lymphedema I89.0 ; Chronic pain syndrome G89.4 ; Gastroesophageal reflux disease without esophagitis K21.9 and Urge incontinence of urine N39.41 [place] [address] [place] [address] 42950- 4604 Nov, Mixed hyperlipidemia E78.2 [place] [address] [place] [id number] [place] [address] 17146- 3747 Nov, [place] [address] [place] [id number] [place] [address] 15093- 5823 Nov, [place] [address] [place] [id number] [place] [address] 39653- 8280 Nov, [facility] [address] [id number] [address] Nov, Stasis ulcer, left I83.029 [facility] [id number], [place] [address]- 6615 Nov, [facility] [address], [place] [address]- 5553 Oct, [facility] [address], [place] [address]- 5502 Oct, [facility] [address], [place] [address]- 0161 Oct, [facility] [address], [place] [address]- 9561 Sep, [facility] [address], [place] [address]- 4367 Sep, [address] [address] Sep, [facility] [address], [place] [address]- 9399 Aug, [facility] [address], [place] [address]- 7910 Jul, [facility] [address] [place] [id number], [place] [address]- 3325 Jul, [facility] [address], [place] [address]- 7211 Jul, [facility] [address] [place] [id number], [place] [address]- 2951 Jul, [facility] [address] [place] [id number], [place] [address]- 4096 14 Jul, 2016 Chest pain, unspecified type R07.9 ; Dyspnea on exertion R06.09 ; Essential hypertension I10 ; Hyperlipidemia, unspecified hyperlipidemia type E78.5 ; Left bundle branch block I44.7 and Hypothyroidism, unspecified type E03.9 [facility] [address] [place] [address] 08785 -4448 Jun, Fever, unspecified fever cause R50.9 ; Headache, unspecified headache type R51 ; SOB (shortness of breath) R06.02 and Strep pharyngitis J02.0 [facility] [address] [id number] [place] [address] 72338- 9748 Jun, [facility] [address] [place] [id number] [place] [address] 53718- 0891 Jun, [facility] [address] [place] [id number] [place] [address] 09496- 6980 Jun, Essential hypertension I10 ; Mixed hyperlipidemia E78.2 and Acquired hypothyroidism E03.9 [facility] [address] [place] [id number] [place] [address] 06237- 0451 Jun, Edema of both legs R60.0 ; Hypoxia R09.02 and Essential hypertension I10 [facility] [address] [id number] [place] [address] 51742- 0471 Jun, [facility] [address] [place] [id number] [place] [address] 05602- 7412 Jun, Edema of both legs R60.0 ; Hypoxia R09.02 and Essential hypertension I10 [facility] [address] [place] [address] 93613- 9615 Jun, Essential hypertension I10 ; Dependence on supplemental oxygen Z99.81 and Edema of both legs R60.0 [facility] [address] [id number] [place] [address] 10020- 7782 May, Lumbar pain M54.5 ; Essential hypertension I10 ; Edema of both legs R60.0 ; Stasis dermatitis without varicosities I87.2 and Left knee pain M25.562 [facility] [address] [place] [address] 32585- 7521 May, [facility] [id number] [address]- 5221 May, [facility] [address], [place] [address]- 1038 May, [facility] [address], [place] [address]- 9049 Apr, [facility] [address] [place] [id number] [place] [address] 94773- 3887 Apr, [facility] [address] [place] [address] 13184- 2389 March, [place] [address] [place] [address] [id number] [place] [address] 66070- 1506 March, Lymphedema I89.0 ; Morbid obesity due to excess calories E66.01 ; Alteration in mobility due to weakness R53.1 and Hypoxia R09.02 [place] [address] [place] [id number] [place] [address] 11161- 6841 March, Abdominal wall mass R19.00 [place] [address], [place] [address]- 9642 March, [place] [id number] [place] [address] 49578- 5660 March, Abdominal wall mass R19.00 ; Lower abdominal pain R10.30 ; Alteration in mobility due to weakness R53.1 ; Hypoxia R09.02 and Lymphedema I89.0 [place] [address], [place] [address]- 9511 Feb, [facility] [address], [place] [address]- 6290 Feb, Acquired hypothyroidism E03.9 ; Dependence on machine for supplemental oxygen V46.2 ; Restless legs syndrome G25.81 ; Essential hypertension I10 ; Renal insufficiency N28.9 ; Chronic stasis dermatitis I83.10 ; Mixed hyperlipidemia E78.2 ; Other chronic pain 338.29 and Cellulitis of left lower extremity L03.116 [place] [address] [place] [id number] [place] [address] 91833- 9336 Feb, [facility] [address] 47436- 8108 Feb, [facility] [id number] [place] [address] 60718 -5592 Feb, Shortness of breath R06.02 and Bronchitis J40 [facility] [address] 88797- 4773 Jan, Dependence on supplemental oxygen Z99.81 [place] [address] 09783- 6450 Jan, [place] [address] 18058- 8213 Dec, [place] [address] 42135- 2500 Dec, [place] [address] 36584- 7011 Nov, Osteoarthritis of knees, bilateral M17.[address] 22127- 3917 Nov, Dependence on machine for supplemental oxygen V46.2 ; Nocturnal hypoxia G47.34 and Urgency of urination R39.[address] 16332- 7125 Nov, [address] 45353- 4733 Oct, Pain in right knee M25.561 and Pain in left knee M25.[address] 75642- 9113 Oct, Acquired hypothyroidism E03.9 ; Renal insufficiency N28.9 and Chronic stasis dermatitis I83.10 [place] [address] 05582- 9342 Oct, [facility] [address] [place] [id number] [place] [address] 06696- 5330 Sep, Cellulitis L03.90 ; Left knee pain M25.562 ; Essential hypertension I10 ; Lymphedema I89.0 ; Lumbar pain M54.5 ; Morbid obesity due to excess calories E66.01 and Renal insufficiency N28.9 [facility] [address] 94262- 5496 Sep, Cellulitis L03.90 and Lymphedema I89.0 [place] [address] 77878- 8128 Sep, [place] [address] 83183- 9636 Sep, [place] [address] 55046- 3503 Sep, Left knee pain M25.562 ; Lumbar pain M54.5 ; Restless legs syndrome G25.81 ; Acquired hypothyroidism E03.9 and Essential hypertension I10 [place] [address] 17081- 4426 Jul, [facility] [address] 27730- 6920 Jun, [place] [address] [place] [id number] [place] [address] 34961- 7096 May, [facility] [address] 29749- 1200 May, [facility] [address] 16291- 0190 May, Hypertension 997.91 ; Restless legs syndrome [RLS] 333.94 ; Unspecified venous (peripheral) insufficiency 459.81 ; Unspecified hypothyroidism 244.9 and Other chronic pain 338.29 [place] [address] 23569- 1217 Apr, [facility] [address], [place] [address]- 5971 Apr, [facility] [id number] [place] [address] 89554- 2077 Apr, Restless legs syndrome [RLS] 333.94 ; Shortness of breath 786.05 ; Unspecified venous (peripheral) insufficiency 459.81 ; Unspecified hypothyroidism 244.9 ; Obesity, unspecified 278.00 ; Other chronic pain 338.29 ; Hypertension 997.91 and Hyperlipidemia 272.4 [facility] [address], [place] [address]- 0442 Feb, [facility] [id number] [place] [address] 00989- 4059 Feb, [facility] [id number] [place] [address] 10099- 4857 Jan, [facility] [id number] [place] [address] 67146- 5211 Jan, [facility] [address], [place] [address]- 1642 Jan, [facility] [address] [place] [address] 83692- 4670 Jan, [facility] [address], [place] [address]- 1034 Jan, [facility] [address], [place] [address]- 2862 Jan, [facility] [address], [place] [address]- 8178 Jan, [facility] [id number]- 1089 Jan, [facility] [address] 5787 Jan, [facility] [id number] [place] [address] 56415- 8659 Jan, [facility] [place] [facility] [address] [id number] [place] [address]- 1838 Jan, [facility] [place] [facility] [address] [id number] [place] [address]- 7277 Jan, [facility] [place] [facility] [address] [id number] [place] [address]- 4520 Jan, [facility] [place] [facility] [address] [id number] [place] [address]- 9586 Jan, [facility] [place] [facility] [address] [id number] [place] [address]- 1507 Dec, [facility] [place] [facility] [address] [id number] [place] [address]- 4037 Dec, [facility] [place] [facility] [address] [id number] [place] [address]- 2741 Nov, [facility] [place] [facility] [address] [id number] [place] [address]- 8023 Nov, [facility] [place] [facility] [address] [id number] [place] [address]- 2381 Nov, [facility] [place] [facility] [address] [id number] [place] [address]- 5262 Nov, [facility] [place] [facility] [address] [id number] [place] [address]- 4676 Nov, [facility] [place] [facility] [address] [id number] [place] [address]- 7034 Nov, [facility] [place] [facility] [address] [id number] [place] [address]- 4192 Nov, [facility] [place] [facility] [address] [id number] [place] [address]- 7822 Nov, [facility] [place] [facility] [address] [id number] [place] [address]- 2868 Nov, [facility] [place] [facility] [address] [id number] [place] [address]- 6014 14 Nov, 2014 [facility] [place] [facility] [address] [id number] [place] [address]- 5583 14 Nov, 2014 [facility] [place] [facility] [address] [id number] [place] [address]- 6349 Nov, [facility] [place] [facility] [address] [id number] [place] [address]- 6866 Nov, [facility] [place] [facility] [address] [id number] [place] [address]- 7780 Nov, [facility] [place] [facility] [address] [id number] [place] [address]- 0562 Nov, [facility] [place] [facility] [address] [id number] [place] [address]- 0018 Nov, [facility] [place] [facility] [address] [id number] [place] [address]- 2123 Oct, [facility] [place] [facility] [address] [id number] [place] [address]- 9770 Oct, [facility] [place] [facility] [address] [id number] [place] [address]- 1601 Sep, [facility] [place] [facility] [address] [id number] [place] [address]- 4018 Aug, [facility] [place] [facility] [address] [id number] [place] [address]- 6028 Aug, [facility] [place] [facility] [address] [id number] [place] [address]- 6499 Aug, [facility] [place] [facility] [address] [id number] [place] [address]- 9990 Aug, [facility] [place] [facility] [address] [id number] [place] [address]- 6466 Aug, [facility] [place] [facility] [address] [id number] [place] [address]- 2180 Aug, [facility] [place] [facility] [address] [id number] [place] [address]- 2726 Aug, [facility] [place] [facility] [address] [id number] [place] [address]- 6917 Aug, [facility] [place] [facility] [address] [id number] [place] [address]- 3786 Aug, [facility] [place] [facility] [address] [id number] [place] [address]- 6999 Aug, [facility] [place] [facility] [address] [id number] [place] [address]- 0005 Jun, [facility] [place] [facility] [address] [id number] [place] [address]- 3832 Jun, [facility] [place] [facility] [address] [id number] [place] [address]- 8869 Jun, [facility] [place] [facility] [address] [id number] [place] [address]- 9098 Jun, [facility] [place] [facility] [address] [id number] [place] [address]- 4793 Jun, [facility] [place] [facility] [address] [id number] [place] [address]- 8796 Jun, [facility] [place] [facility] [address] [id number], [place] [address]- 7486 Jun, [facility] [place] [facility] [address] [id number], [place] [address]- 6494 Jun, [facility] [place] [facility] [address] [id number] [place] [address]- 6195 Jun, [facility] [place] [facility] [address] [id number], [place] [address]- 4336 Jun, [facility] [place] [facility] [address] [id number] [place] [address]- 6143 May, [facility] [place] [facility] [address] [id number] [place] [address]- 1567 May, 2013 [facility] [place] [facility] [address] [id number] [place] [address]- 4767 May, 2013 [facility] [place] [facility] [address] [id number] [place] [address]- 1659 May, 2013 [facility] [place] [facility] [address] [id number] [place] [address]- 1071 May, 2013 [facility] [place] [facility] [address] [id number] [place] [address]- 1998 May, 2013 [facility] [place] [facility] [address] [id number] [place] [address]- 2021 May, 2013 [facility] [place] [facility] [address] [id number] [place] [address]- 2552 May, 2013 [facility] [place] [facility] [address] [id number] [place] [address]- 2344 May, 2013 [facility] [place] [facility] [address] [id number] [place] [address]- 9749 May, 2013 [facility] [place] [facility] [address] [id number] [place] [address]- 6684 May, 2013 [facility] [place] [facility] [address] [id number] [place] [address] May, 2013 [facility] [place] [facility] [address] [id number] [place] [address] May, 2013 [facility] [place] [facility] [address] [id number] [place] [address] May, 2013 [facility] [place] [facility] [address] [id number] [place] [address] May, 2013 [facility] [place] [facility] [address] [id number] [place] [address] May, 2013 [facility] [place] [facility] [address] [id number] [place] [address] May, [facility] [place] [facility] [address] [id number] [place] [address] May, [facility] [place] [facility] [address] [id number] [place] [address] Apr, [facility] [place] [facility] [address] [id number] [place] [address] Apr, [facility] [place] [facility] [address] [id number] [place] [address] Apr, [facility] [place] [facility] [address] [id number] [place] [address] Apr, [facility] [place] [facility] [address] [id number] [place] [address] Apr, [facility] [place] [facility] [address] [id number] [place] [address]- [address] Apr, [facility] [place] [facility] [address] [id number] [place] [address] Apr, [facility] [place] [facility] [address] [id number] [place] [address] Apr, [facility] [place] [facility] [address] [id number] [place] [address] Apr, [facility] [place] [facility] [address] [id number] [place] [address] Apr, [facility] [place] [facility] [address] [id number] [place] [address] Apr, [facility] [place] [facility] [address] [id number] [place] [address] Apr, [facility] [place] [facility] [address] [id number] [place] [address] March, [facility] [place] [facility] [address] [id number] [place] [address] March, [facility] [place] [facility] [address] [id number] [place] [address] March, [facility] [place] [facility] [address] [id number] [place] [address] March, [facility] [place] [facility] [address] [id number] [place] [address] March, [facility] [place] [facility] [address] [id number] [place] [address] March, [facility] [place] [facility] [address] [id number] [place] [address] March, [facility] [place] [facility] [address] [id number] [place] [address] March, [facility] [place] [facility] [address] [id number] [place] [address] March, [facility] [place] [facility] [address] [id number] [place] [address] March, [facility] [place] [facility] [address] [id number] [place] [address] March, [facility] [place] [facility] [address] [id number] [place] [address] Feb, [facility] [place] [facility] [address] [address] [id number] [place] [address] Feb, [facility] [place] [facility] [address] [id number] [place] [address] 2121 Feb, [facility] [place] [facility] [address] [id number] [place] [address] 1620 Feb, [facility] [place] [facility] [address] [id number] [place] [address] 0695 Feb, [facility] [place] [facility] [address] [id number] [place] [address]- 4734 Feb, [facility] [place] [facility] [address] [id number] [place] [address] 4589 Feb, [facility] [place] [facility] [address] [id number] [place] [address]- 3365 Feb, [facility] [address] [id number] [place] [address] 6147 Feb, [facility] [place] [facility] [address] [id number] [place] [address] 4589 Feb, [facility] [address] [id number] [place] [address] 9608 Feb, [facility] [place] [facility] [address] [id number] [place] [address]- 5783 Feb, [facility] [address] [id number] [place] [address] 2154 Feb, [facility] [place] [facility] [address] [id number] [place] [address] 5022 Feb, [facility] [place] [facility] [address] [id number] [place] [address] 3707 Feb, [facility] [address] [id number] [place] [address]- 4788 Feb, [facility] [place] [facility] [address] [id number] [place] [address]- 3008 Feb, [facility] [address] [id number] [place] [address]- 8759 Feb, [facility] [place] [facility] [address] [id number] [place] [address]- 6363 Feb, [facility] [place] [facility] [address] [id number] [place] [address]- 9551 Feb, [facility] [place] [facility] [address] [id number] [place] [address] Jan, [facility] [place] [facility] [address] [id number] [place] [address]- 0897 Jan, [facility] [place] [facility] [address] [id number] [place] [address] Jan, [facility] [place] [facility] [address] [id number] [place] [address]- 6950 Jan, [facility] [place] [facility] [address] [id number] [place] [address]- 3108 Jan, [facility] [place] [facility] [address] [id number] [place] [address]- 7050 Jan, [facility] [place] [facility] [address] [id number] [place] [address]- 7095 Jan, [facility] [place] [facility] [address] [id number] [place] [address]- 3847 Jan, [facility] [place] [facility] [address] [id number] [place] [address]- 8998 Jan, [facility] [place] [facility] [address] [id number] [place] [address]- 8988 Jan, [facility] [place] [facility] [address] [id number] [place] [address]- 9936 Jan, [facility] [place] [facility] [address] [id number] [place] [address]- 9018 Jan, [facility] [place] [facility] [address] [id number] [place] [address]- 2697 Jan, [facility] [place] [facility] [address] [id number] [place] [address]- 4234 Jan, [facility] [place] [facility] [address] [id number] [place] [address]- 4936 Dec, [facility] [place] [facility] [address] [id number] [place] [address]- 8521 Dec, [facility] [place] [facility] [address] [id number] [place] [address]- 8581 Dec, [facility] [place] [facility] [address] [id number] [place] [address]- 0775 Dec, [facility] [place] [facility] [address] [id number] [place] [address]- 3136 Dec, [facility] [address] [id number] [place] [address]- 7856 Dec, [facility] [place] [facility] [address] [id number] [place] [address]- 2546 Dec, [facility] [address] [id number] [place] [address]- 6856 Dec, [facility] [place] [facility] [address] [id number] [place] [address]- 2546 Dec, [facility] [address] [id number] [place] [address]- 6260 Nov, [facility] [address] [id number] [place] [address]- 5483 Nov, [facility] [address] [id number] [place] [address]- 2999 Nov, [facility] [address] [id number] [place] [address]- 7356 Nov, [facility] [address] [id number] [place] [address]- 6658 Oct, [facility] [address] [id number] [place] [address]- 4814 Oct, [facility] [place] [facility] [address] [id number] [place] [address] 254 Oct, [facility] [place] [facility] [address] [id number] [place] [address] 2549 Oct, [facility] [place] [facility] [address] [id number] [place] [address] 2546 Oct, [facility] [place] [facility] [address] [id number] [place] [address]- 2546 Oct, [facility] [place] [facility] [address] [id number] [place] [address]- 3344 Oct, [facility] [address] [id number] [place] [address]- 2589 23 Oct, 2013 [facility] [place] [facility] [address] [id number] [place] [address]- 9809 20 Oct, 2013 [facility] [address] [id number] [place] [address]- 1387 19 Oct, 2013 [facility] [place] [facility] [address] [id number] [place] [address]- 3399 19 Oct, 2013 [facility] [address] [id number] [place] [address]- 6064 18 Oct, 2013 [facility] [address] [id number] [place] [address]- 1647 18 Oct, 2013 [facility] [address] [id number] [place] [address]- 8178 17 Oct, 2013 [facility] [place] [facility] [address] [id number] [place] [address]- 3967 17 Oct, 2013 [facility] [place] [facility] [address] [id number] [place] [address]- 9040 17 Oct, 2013 [facility] [place] [facility] [address] [id number] [place] [address]- 2920 17 Oct, 2013 [facility] [place] [facility] [address] [id number] [place] [address]- 2164 17 Oct, 2013 [facility] [place] [facility] [address] [id number], [place] [address]- 3910 17 Oct, 2013 [facility] [place] [facility] [address] [id number] [place] [address]- 4573 11 Oct, 2013 [facility] [place] [facility] [address] [id number] [place] [address]- 2237 11 Oct, 2013 [facility] [place] [facility] [address] [id number] [place] [address]- 9396 27 Sep, 2013 [facility] [place] [facility] [address] [id number] [place] [address]- 7227 Sep, [facility] [place] [facility] [address] [id number] [place] [address]- 9000 Sep, [facility] [place] [facility] [address] [id number] [place] [address]- 8047 Sep, [facility] [place] [facility] [address] [id number] [place] [address]- 0614 18 Sep, 2013 [facility] [place] [facility] [address] [id number] [place] [address]- 7672 Sep, [facility] [place] [facility] [address] [id number] [place] [address]- 6211 14 Sep, 2013 [facility] [place] [facility] [address] [id number] [place] [address]- 2865 Sep, [facility] [place] [facility] [address] [id number] [place] [address]- 2208 Sep, [facility] [place] [facility] [address] [id number] [place] [address]- 2769 Sep, [facility] [place] [facility] [address] [id number] [place] [address]- 6434 Sep, [facility] [place] [facility] [address] [facility] [id number] [place] [address]- 9218 Sep, [facility] [place] [facility] [address] [id number] [place] [address]- 9940 Aug, [facility] [place] [facility] [address] [id number], [place] [address]- 6903 Aug, [facility] [place] [facility] [address] [id number] [place] [address]- 5195 Aug, [facility] [place] [facility] [address] [id number] [place] [address]- 6586 Aug, [facility] [place] [facility] [address] [id number], [place] [address]- 3605 Aug, [facility] [place] [facility] [address] [id number] [place] [address]- 3634 23 Aug, 2012 [facility] [place] [facility] [address] [id number] [place] [address]- 9635 Aug, 2012 [facility] [place] [facility] [address] [id number] [place] [address]- 0540 Aug, 2012 [facility] [place] [facility] [address] [id number] [place] [address]- 0361 16 Aug, 2012 [facility] [place] [facility] [address] [id number] [place] [address]- 3675 16 Aug, 2012 [facility] [place] [facility] [address] [id number] [place] [address]- 6835 Aug, 2012 [facility] [place] [facility] [address] [id number] [place] [address]- 8998 10 Aug, 2012 [facility] [place] [facility] [address] [id number] [place] [address]- 6955 08 Aug, 2013 [facility] [place] [facility] [address] [id number] [place] [address]- 3846 Aug, [facility] [place] [facility] [address] [id number] [place] [address]- 6414 04 Aug, 2013 [facility] [place] [facility] [address] [id number] [place] [address]- 2500 Aug, [facility] [place] [facility] [address] [id number] [place] [address]- 8042 Aug, [facility] [place] [facility] [address] [id number] [place] [address]- 6495 Jul, [facility] [place] [facility] [address] [id number] [place] [address]- 1652 Jun, [facility] [place] [facility] [address] [id number] [place] [address]- 9080 Jun, [facility] [place] [facility] [address] [id number] [place] [address]- 1312 May, [facility] [place] [facility] [address] [id number] [place] [address]- 7274 May, [facility] [place] [facility] [address] [id number] [place] [address]- 5887 Apr, [facility] [place] [facility] [address] [id number] [place] [address]- 6033 Apr, [facility] [place] [facility] [address] [id number] [place] [address]- 4279 Apr, [facility] [place] [facility] [address] [id number] [place] [address]- 6801 Apr, [facility] [place] [facility] [address] [id number] [place] [address]- 1821 Apr, [facility] [place] [facility] [address] [id number] [place] [address]- 2808 Apr, [facility] [place] [facility] [address] [id number] [place] [address]- 4164 Apr, [facility] [place] [facility] [address] [id number] [place] [address]- 7303 Apr, [facility] [place] [facility] [address] [id number] [place] [address]- 4395 Apr, [facility] [place] [facility] [address] [id number] [place] [address]- 4819 Apr, [facility] [place] [facility] [address] [id number], [place] [address]- 1888 Apr, [facility] [place] [facility] [address] [id number] [place] [address]- 8614 March, [facility] [place] [facility] [address] [id number] [place] [address]- 5241 March, [facility] [place] [facility] [address] [id number] [place] [address]- 1262 March, [facility] [place] [facility] [address] [id number] [place] [address]- 8356 March, [facility] [address] [id number] [place] [address]- 6406 March, [facility] [address] [id number] [place] [address]- 7667 Feb, [facility] [address] [id number] [place] [address]- 5666 Feb, [facility] [address] [id number] [place] [address]- 5675 Jan, [facility] [address] [id number] [place] [address]- 1880 Jan, [facility] [address] [id number] [place] [address]- 4261 Jan, [facility] [address] [id number] [place] [address]- 3084 Jan, [facility] [address] [id number] [place] [address]- 7566 Jan, [facility] [address] [id number] [place] [address]- 6523 Dec, [facility] [address] [id number] [place] [address]- 8282 Dec, [facility] [address] [id number] [place] [address]- 3679 Nov, [facility] [address] [id number] [place] [address]- 8662 Nov, [facility] [address] [id number] [place] [address]- 4862 Nov, [facility] [address] [id number] [place] [address]- 2546 16 Nov, 2012 [facility] [address] [id number] [place] [address] Nov, [facility] [address] [id number] [place] [address]- 0478 14 Nov, 2012 [facility] [place] [facility] [address] [id number] [place] [address]- 8376 14 Nov, 2012 [facility] [place] [facility] [address] [id number] [place] [address]- 7310 Nov, [facility] [place] [facility] [address] [id number] [place] [address]- 4720 Nov, [facility] [place] [facility] [address] [id number] [place] [address]- 9541 Nov, [facility] [place] [facility] [address] [id number] [place] [address]- 6416 Nov, [facility] [place] [facility] [address] [id number] [place] [address]- 8170 Oct, [facility] [place] [facility] [address] [id number] [place] [address]- 1359 Oct, [facility] [place] [facility] [address] [id number] [place] [address]- 4568 Sep, [facility] [place] [facility] [address] [id number], [place] [address]- 4894 Sep, [facility] [place] [facility] [address] [id number], [place] [address]- 6068 Sep, [facility] [place] [facility] [address] [id number], [place] [address]- 9170 Sep, [facility] [place] [facility] [address] [id number] [place] [address]- 9012 Sep, [facility] [place] [facility] [address] [id number], [place] [address]- 0681 Sep, [facility] [place] [facility] [address] [id number], [place] [address]- 6188 Sep, [facility] [place] [facility] [address] [id number], [place] [address]- 9130 Sep, [facility] [place] [facility] [address] [id number] [place] [address]- 2080 Sep, [facility] [place] [facility] [address] [facility] [id number], [place] [address]- 3148 Sep, [facility] [place] [facility] [address] [facility] [id number] [place] [address]- 3215 Sep, [facility] [place] [facility] [address] [facility] [id number] [place] [address] 39[address]- 3099 Sep, [facility] [place] [facility] [address] [facility] [id number] [place] [address], [place] [address]- 8753 Sep, [facility] [place] [facility] [address] [facility] [id number], [place] [address]- 9008 Sep, [facility] [place] [facility] [id number] [place] [address] 808[address]- 7992 Aug, [facility] [place] [facility] [address] [facility] [id number], [place] [address]- 1021 Aug, [facility] [place] [facility] [address] [id number], [place] [address]- 4793 Aug, [facility] [place] [facility] [address] [id number], [place] [address]- 2028 Aug, [facility] [place] [facility] [address] [facility] [id number], [place] [address]- 3133 Aug, [facility] [place] [facility] [address] [facility] [id number], [place] [address]- 2247 Aug, [facility] [place] [facility] [address] [facility] [id number], [place] [address]- 5158 Aug, [facility] [place] [facility] [address] [facility] [id number], [place] [address]- 0390 Aug, [facility] [place] [facility] [address] [id number], [place] [address]- 7018 Aug, [facility] [place] [facility] [address] [facility] [id number], [place] [address]- 9057 Aug, [facility] [id number], [place] [address]- 3054 Aug, [facility] [address] [facility] [id number], [place] [address]- 0304 Aug, [facility] [address] [facility] [id number], [place] [address]- 8985 Aug, [facility] [address] [facility] [id number], [place] [address]- 5339 Aug, [facility] [id number] [place] [address] 137[address]- 3248 Aug, [facility] [id number], [place] [address]- 8799 Aug, [facility] [id number], [place] [address]- 4769 Aug, [facility] [id number], [place] [address]- 7683 Jul, [facility] [id number], [place] [address]- 9391 Jun, [facility] [id number], [place] [address]- 7651 Aug, [facility] [id number], [place] [address]- 3842 Aug, [facility] [address] [id number], [place] [address]- 5045 Aug, IMMUNIZATIONS No Known Immunizations SOCIAL HISTORY Never Assessed REASON FOR VISIT Nutritional ed attempt PLAN OF CARE VITAL SIGNS MEDICATIONS Unknown [...]
--- OUTSIDE RECORDS SUMMARY | 2018-05-03 19:48 | XMS REPORT ---
Author Author PIPPA DIMAS [facility] Address [address] [place] [address] Care Team Providers Care Editorial Specialist Name Role Phone JUDIE PIPPA Unavailable PROBLEMS Type Condition ICD9-CM Code EGA56-XW Code Onset Dates Condition Status SNOMED Code Problem Mixed hyperlipidemia E78.2 Active 240450167 Problem Stasis dermatitis without varicosities I87.2 Active 54710888 Problem Edema of both legs R60.0 Active 156639274 Problem Morbid (severe) obesity due to excess calories E66.01 Active 683419762 Problem Chronic pain syndrome G89.4 Active 918885512 Problem Dependence on supplemental oxygen Z99.81 Active 670851572617 Problem 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 Active 97571909 Problem Gastroesophageal reflux disease without esophagitis K21.9 Active 714850729 Problem Urge incontinence of urine N39.41 Active 27999576 Problem Restless legs syndrome G25.81 Active 275943258 Problem Essential hypertension I10 Active 04540860 Problem Chronic stasis dermatitis I83.10 Active 58014362 Problem Renal insufficiency N28.9 Active 894164767 Problem Acquired hypothyroidism E03.9 Active 240537385 Problem Lymphedema I89.0 Active 700464414 Problem Lumbar pain M54.5 Active 771985766 Problem Nocturnal hypoxia G47.34 Active 442289230 ALLERGIES Substance Reaction Event Type Date Status Bactrim DS Unknown Drug Allergy Jun, Active ENCOUNTERS Encounter Location Date Diagnosis [facility] [address] [id number], [place] [address] Feb, [facility] [address] [id number], [place] [address] 8[address] Feb, [facility] [address] [id number], [place] [address] 56[address] Jan, [facility] [id number] [place] [address] 46784- 1772 Jan, [place] [facility] [id number] [place] [address] 80584- 3407 Jan, Acquired hypothyroidism E03.9 ; Morbid (severe) obesity due to excess calories E66.01 ; Body mass index (BMI) 70 or greater, adult Z68.45 ; Cellulitis of left anterior lower leg L03.116 ; Restless legs syndrome G25.81 ; Nocturnal hypoxia G47.34 and Dependence on supplemental oxygen Z99.81 [facility] [id number] [place] [address] 90343- 7292 Jan, [facility] [place] [id number] [place] [address] 69618- 0113 Dec, [facility] [id number] [place] [address] 34231- 1820 Oct, [facility] [id number] [place] [address] 86273- 1813 07 Oct, 2017 [place] [id number] [place] [address] 31132- 6156 Sep, [facility] [id number] [place] [address] 09827- 3635 16 Sep, 2017 [place] [id number] [place] [address] 30629- 4657 16 Sep, 2017 Dental examination Z01.20 [facility] [id number] [place] [address] 42819- 1543 01 Sep, 2017 Morbid obesity due to excess calories E66.01 ; Body mass index (BMI) of 70 or greater in adult Z68.45 ; Stasis dermatitis without varicosities I87.2 ; Lymphedema I89.0 ; Renal insufficiency N28.9 ; Acquired hypothyroidism E03.9 ; Cellulitis L03.90 ; Bronchitis J40 and BMI 40.0-44.9, adult Z68.41 [place] [id number] [place] [address] 90910- 7245 Aug, [facility] [address] [id number] [id number] Aug, Dental examination Z01.20 [facility] [address], [place] [address] 6836 Aug, [facility] [address], [place] [address] 6573 Jul, [facility] [address], [place] [address]- 9086 Jul, [facility] [id number] [place] [address] 37608- 5253 18 Jul, 2017 [facility] [id number] [place] [address] 49410- 8240 14 Jul, 2017 [facility] [id number] [place] [address] 39967- 0008 Jul, [facility] [address], [place] [address]- 7199 Jun, [facility] [id number] [place] [address] 46763- 2782 Jun, Dependence on nocturnal oxygen therapy Z99.81 ; Morbid obesity due to excess calories E66.01 and Bronchitis J40 [facility] [address], [place] [address] 4451 Jun, Restless legs syndrome G25.81 [facility] [address], [place] [address] 2294 Jun, [facility] [id number] [place] [address] 42163- 2287 May, [facility] [id number] [place] [address] [id number] Apr, [facility] [address], [place] [address] 5937 Apr, [facility] [address], [place] [address] 5371 Apr, Essential hypertension I10 [facility] [id number] [place] [address] 68289- 2330 Apr, [facility] [id number] [place] [address] 01023- 8747 13 Apr, 2017 Chronic pain syndrome G89.4 and Urge incontinence of urine N39.41 [facility] [id number] [place] [address] 91520- 2494 March, Acquired hypothyroidism E03.9 [facility] [id number] [place] [address] 34452- 8385 March, [facility] [id number] [place] [address] 88125- 8761 March, [facility] [facility] [id number] [place] [address] 61312- 0408 March, Chronic pain syndrome G89.4 ; Essential [...] extremity L03.116 and Screening breast examination Z12.39 [facility] [id number] [place] [address] 90807- 1937 March, [facility] [id number] [place] [address] 04921- 5156 Feb, [facility] [id number] [place] [address] 66526- 8542 Feb, [facility] [id number] [place] [address] 29662- 3031 Feb, Chronic pain syndrome G89.4 [facility] [id number] [place] [address] 02866 -4976 Feb, Right foot pain M79.671 and Right foot sprain, initial encounter S93.601A [place] [id number] [place] [address] 06310- 4836 Jan, [facility] [id number] [place] [address] 43414- 7107 Jan, [facility] [id number] [place] [address] 94208- 4332 Jan, Chronic pain syndrome G89.4 [facility] [id number] [place] [address] 20206- 3357 Jan, [facility] [id number] [place] [address] 84453- 6703 Dec, [facility] [id number] [place] [address] 76419- 7222 Dec, [facility] [id number] [place] [address] 00451- 8907 Dec, Pain in right knee M25.561 ; Pain in left knee M25.562 ; Essential hypertension I10 ; Chronic stasis dermatitis I83.10 ; Restless legs syndrome G25.81 ; Acquired hypothyroidism E03.9 ; Dependence on nocturnal oxygen therapy Z99.81 ; Mixed hyperlipidemia E78.2 ; Lymphedema I89.0 ; Chronic pain syndrome G89.4 ; Gastroesophageal reflux disease without esophagitis K21.9 and Urge incontinence of urine N39.41 [place] [id number] [place] [address] 26895- 8920 Nov, Mixed hyperlipidemia E78.2 [facility] [id number] [place] [address] 73362- 0603 Nov, [facility] [id number] [place] [address] 09965- 9584 Nov, [facility] [id number] [place] [address] 32254- 8556 Nov, [facility] [address] [id number], [place] [address] Nov, Stasis ulcer, left I83.029 [facility] [address] [id number] [address]- 8395 Nov, [facility] [address], [place] [address]- 3910 Oct, [facility] [address], [place] [address]- 2925 Oct, [facility] [address], [place] [address]- 3392 Oct, [facility] [address], [place] [address]- 7779 Sep, [facility] [address], [place] [address]- 4296 Sep, [address] [id number] Sep, [facility] [address], [place] [address]- 1588 Aug, [facility] [address], [place] [address]- 1455 Jul, [facility] [address], [place] [address]- 4031 Jul, [facility] [address], [place] [address]- 6796 Jul, [facility] [address], [place] [address]- 0196 Jul, [facility] [id number], [place] [address]- 1836 14 Jul, 2016 Chest pain, unspecified type R07.9 ; Dyspnea on exertion R06.09 ; Essential hypertension I10 ; Hyperlipidemia, unspecified hyperlipidemia type E78.5 ; Left bundle branch block I44.7 and Hypothyroidism, unspecified type E03.9 [facility] [id number] [place] [address] 50460 -2310 Jun, Fever, unspecified fever cause R50.9 ; Headache, unspecified headache type R51 ; SOB (shortness of breath) R06.02 and Strep pharyngitis J02.0 [facility] [address] 70911- 7753 Jun, [facility] [address] 17641- 6648 Jun, [facility] [address] 89533- 2350 Jun, Essential hypertension I10 ; Mixed hyperlipidemia E78.2 and Acquired hypothyroidism E03.9 [facility] [address] 69565- 3779 Jun, Edema of both legs R60.0 ; Hypoxia R09.02 and Essential hypertension I10 [facility] [address] 28830- 2975 Jun, [facility] [address] 71810- 1299 Jun, Edema of both legs R60.0 ; Hypoxia R09.02 and Essential hypertension I10 [facility] [address] 92730- 7447 Jun, Essential hypertension I10 ; Dependence on supplemental oxygen Z99.81 and Edema of both legs R60.0 [facility] [address] 28750- 4104 May, Lumbar pain M54.5 ; Essential hypertension I10 ; Edema of both legs R60.0 ; Stasis dermatitis without varicosities I87.2 and Left knee pain M25.562 [facility] [address] 34728- 0786 May, [facility] [address], [place] [address]- 1773 May, [facility] [address], [place] [address]- 4000 May, [facility] [address], [place] [address]- 0071 Apr, [facility] [address] [place] [address] 16776- 2234 Apr, [facility] [address], [place] [address]- 3651 March, [place] [id number] [place] [address] 90892- 0733 March, Lymphedema I89.0 ; Morbid obesity due to excess calories E66.01 ; Alteration in mobility due to weakness R53.1 and Hypoxia R09.02 [place] [address], [place] [address]- 5817 March, Abdominal wall mass R19.00 [facility] [address], [place] [address]- 4975 March, [place] [address], [place] [address]- 9533 March, Abdominal wall mass R19.00 ; Lower abdominal pain R10.30 ; Alteration in mobility due to weakness R53.1 ; Hypoxia R09.02 and Lymphedema I89.0 [facility] [address], [place] [address]- 9614 Feb, [facility] [address], [place] [address]- 6580 Feb, Acquired hypothyroidism E03.9 ; Dependence on machine for supplemental oxygen V46.2 ; Restless legs syndrome G25.81 ; Essential hypertension I10 ; Renal insufficiency N28.9 ; Chronic stasis dermatitis I83.10 ; Mixed hyperlipidemia E78.2 ; Other chronic pain 338.29 and Cellulitis of left lower extremity L03.116 [place] [id number] [place] [address] 61652- 3993 Feb, [place] [address] 19246- 9956 Feb, [facility] [id number] [place] [address] 71335 -1142 Feb, Shortness of breath R06.02 and Bronchitis J40 [place] [address] 69439- 5306 Jan, Dependence on supplemental oxygen Z99.81 [place] [address] 11763- 2716 Jan, [place] [address] 46259- 9199 Dec, [address] 69043- 5345 Dec, [place] [address] 32891- 8490 Nov, Osteoarthritis of knees, bilateral M17.[address] 53756- 3521 Nov, Dependence on machine for supplemental oxygen V46.2 ; Nocturnal hypoxia G47.34 and Urgency of urination R39.[address] 90468- 5044 Nov, [address] 81458- 5966 Oct, Pain in right knee M25.561 and Pain in left knee M25.562 [place] [id number] [place] [address] 69955- 2142 Oct, Acquired hypothyroidism E03.9 ; Renal insufficiency N28.9 and Chronic stasis dermatitis I83.10 [place] [address] 08786- 7710 Oct, [place] [id number] [place] [address] 93722- 0902 Sep, Cellulitis L03.90 ; Left knee pain M25.562 ; Essential hypertension I10 ; Lymphedema I89.0 ; Lumbar pain M54.5 ; Morbid obesity due to excess calories E66.01 and Renal insufficiency N28.9 [place] [address] 63866- 6372 Sep, Cellulitis L03.90 and Lymphedema I89.0 [place] [address] 01779- 4942 Sep, [place] [address] 38803- 1843 Sep, [place] [address] 97157- 0799 Sep, Left knee pain M25.562 ; Lumbar pain M54.5 ; Restless legs syndrome G25.81 ; Acquired hypothyroidism E03.9 and Essential hypertension I10 [place] [address] 23074- 5619 Jul, [place] [id number] [place] [address] 56679- 8913 Jun, [place] [id number] [place] [address] 76487- 8756 May, [place] [id number] [place] [address] 18207- 5258 May, [place] [address] 21946- 5944 May, Hypertension 997.91 ; Restless legs syndrome [RLS] 333.94 ; Unspecified venous (peripheral) insufficiency 459.81 ; Unspecified hypothyroidism 244.9 and Other chronic pain 338.29 [place] [address] 37308- 1923 Apr, [facility] [address], [place] [address]- 9538 Apr, [facility] [id number] [place] [address] 14831- 6790 Apr, Restless legs syndrome [RLS] 333.94 ; Shortness of breath 786.05 ; Unspecified venous (peripheral) insufficiency 459.81 ; Unspecified hypothyroidism 244.9 ; Obesity, unspecified 278.00 ; Other chronic pain 338.29 ; Hypertension 997.91 and Hyperlipidemia 272.4 [facility] [address], [place] [address]- 0611 Feb, [facility] [id number] [place] [address] 162726- 0974 Feb, [facility] [id number] [place] [address] 64033- 1766 Jan, [facility] [id number] [place] [address] 11545- 0095 Jan, [facility] [id number] [place] [address] 64756- 8029 Jan, [facility] [id number] [place] [address] 14120- 6378 Jan, [facility] [address], [place] [address]- 0577 Jan, [facility] [address], [place] [address]- 3570 Jan, [facility] [address], [place] [address]- 7475 Jan, [facility] [id number] [place] [address] 271109- 9158 Jan, [facility] [address] 0114 Jan, [facility] [id number] [place] [address], [place] [address]- 9680 12 Jan, 2015 [facility] [place] [facility] [address] [id number] [place] [address]- 1662 Jan, [facility] [place] [facility] [address] [id number] [place] [address]- 6539 11 Jan, 2015 [facility] [place] [facility] [address] [id number] [place] [address]- 5055 Jan, [facility] [place] [facility] [address] [id number] [place] [address]- 2887 Jan, [facility] [place] [facility] [address] [id number] [place] [address]- 7298 Dec, [facility] [place] [facility] [address] [id number] [place] [address]- 3045 Dec, [facility] [place] [facility] [address] [id number] [place] [address]- 0648 Nov, [facility] [place] [facility] [address] [id number] [place] [address]- 0715 Nov, [facility] [place] [facility] [address] [id number] [place] [address]- 5353 Nov, [facility] [place] [facility] [address] [id number] [place] [address]- 4123 Nov, [facility] [place] [facility] [address] [id number] [place] [address]- 0376 Nov, [facility] [place] [facility] [address] [id number] [place] [address]- 6330 Nov, [facility] [place] [facility] [address] [id number] [place] [address]- 5547 Nov, [facility] [place] [facility] [address] [id number] [place] [address]- 6418 Nov, [facility] [place] [facility] [address] [id number] [place] [address]- 0541 Nov, [facility] [place] [facility] [address] [id number] [place] [address]- 0756 Nov, [facility] [place] [facility] [address] [id number] [place] [address]- 2242 Nov, [facility] [place] [facility] [address] [id number] [place] [address]- 4027 Nov, [facility] [place] [facility] [address] [id number] [place] [address]- 8764 Nov, [facility] [place] [facility] [address] [id number] [place] [address]- 4633 Nov, [facility] [place] [facility] [address] [id number] [place] [address]- 9519 Nov, [facility] [place] [facility] [address] [id number] [place] [address]- 1420 Nov, [facility] [place] [facility] [address] [id number] [place] [address]- 7019 Oct, [facility] [place] [facility] [address] [id number] [place] [address]- 5832 Oct, [facility] [place] [facility] [address] [id number] [place] [address]- 1153 Sep, [facility] [place] [facility] [address] [id number] [place] [address]- 9758 Aug, [facility] [place] [facility] [address] [id number] [place] [address]- 6719 Aug, [facility] [place] [facility] [address] [id number] [place] [address]- 4639 Aug, [facility] [place] [facility] [address] [id number] [place] [address]- 7287 Aug, [facility] [place] [facility] [address] [id number] [place] [address]- 4364 Aug, [facility] [place] [facility] [address] [id number] [place] [address]- 9194 Aug, [facility] [place] [facility] [address] [id number] [place] [address]- 6289 Aug, [facility] [place] [facility] [address] [id number] [place] [address]- 3805 Aug, [facility] [place] [facility] [address] [id number] [place] [address]- 6565 Aug, [facility] [place] [facility] [address] [id number] [place] [address]- 4370 Aug, [facility] [place] [facility] [address] [id number] [place] [address]- 8955 Jun, [facility] [place] [facility] [address] [id number] [place] [address]- 2237 Jun, [facility] [place] [facility] [address] [id number] [place] [address]- 5915 Jun, [facility] [place] [facility] [address] [id number] [place] [address]- 4937 Jun, [facility] [place] [facility] [address] [id number] [place] [address]- 7464 Jun, [facility] [place] [facility] [address] [id number] [place] [address]- 6758 Jun, [facility] [place] [facility] [address] [id number] [place] [address]- 6859 Jun, [facility] [place] [facility] [address] [id number] [place] [address]- 2453 Jun, [facility] [place] [facility] [address] [id number] [place] [address] Jun, [facility] [place] [facility] [address] [id number] [place] [address] Jun, [facility] [place] [facility] [address] [id number] [place] [address] May, [facility] [place] [facility] [address] [id number] [place] [address] May, 2013 [facility] [place] [facility] [address] [id number] [place] [address] May, 2013 [facility] [place] [facility] [address] [id number] [place] [address] May, 2013 [facility] [place] [facility] [address] [id number] [place] [address] May, 2013 [facility] [place] [facility] [address] [id number] [place] [address] May, 2013 [facility] [place] [facility] [address] [id number] [place] [address] May, 2013 [facility] [place] [facility] [address] [id number] [place] [address] May, 2013 [facility] [place] [facility] [address] [id number] [place] [address] May, 2013 [facility] [place] [facility] [address] [id number] [place] [address] May, 2013 [facility] [place] [facility] [address] [id number] [place] [address] May, 2013 [facility] [place] [facility] [address] [id number] [place] [address] 2018 May, 2013 [facility] [place] [facility] [address] [id number] [place] [address] May, 2013 [facility] [place] [facility] [address] [id number] [place] [address] May, 2013 [facility] [place] [facility] [address] [id number] [place] [address] May, 2013 [facility] [place] [facility] [address] [id number] [place] [address]- [address] May, 2013 [facility] [place] [facility] [address] [id number] [place] [address] May, [facility] [place] [facility] [address] [id number] [place] [address] May, [facility] [place] [facility] [address] [id number] [place] [address] Apr, [facility] [place] [facility] [address] [id number] [place] [address] Apr, [facility] [place] [facility] [address] [id number] [place] [address] Apr, [facility] [place] [facility] [address] [id number] [place] [address] Apr, [facility] [place] [facility] [address] [id number] [place] [address] Apr, [facility] [place] [facility] [address] [id number] [place] [address] Apr, [facility] [place] [facility] [address] [id number] [place] [address] Apr, [facility] [place] [facility] [address] [id number] [place] [address] Apr, [facility] [place] [facility] [address] [id number] [place] [address] Apr, [facility] [place] [facility] [address] [id number] [place] [address] Apr, [facility] [place] [facility] [address] [id number], [place] [address] Apr, [facility] [place] [facility] [address] [id number] [place] [address] Apr, [facility] [place] [facility] [address] [id number] [place] [address] March, [facility] [place] [facility] [address] [id number] [place] [address] March, [facility] [place] [facility] [address] [id number], [place] [address] March, [facility] [address] [id number] [place] [address] March, [facility] [place] [facility] [address] [id number] [place] [address] March, [facility] [place] [facility] [address] [id number] [place] [address] March, [facility] [place] [facility] [address] [id number] [place] [address] March, [facility] [place] [facility] [address] [id number] [place] [address] March, [facility] [place] [facility] [address] [id number] [place] [address] March, [facility] [address] [id number] [place] [address] March, [facility] [place] [facility] [address] [id number] [place] [address] March, [facility] [place] [facility] [address] [id number] [place] [address] 8866 Feb, [facility] [place] [facility] [address] [id number] [place] [address]- 5887 Feb, [facility] [place] [facility] [address] [id number] [place] [address] 39[address] Feb, [facility] [place] [facility] [address] [id number] [place] [address]- 5808 Feb, [facility] [place] [facility] [address] [id number] [place] [address]- 6718 Feb, [facility] [place] [facility] [address] [id number] [place] [address]- 5323 Feb, [facility] [place] [facility] [address] [id number] [place] [address]- 5116 Feb, [facility] [place] [facility] [address] [id number] [place] [address]- 4832 Feb, [facility] [place] [facility] [address] [id number] [place] [address]- 3537 Feb, [facility] [place] [facility] [address] [id number] [place] [address]- 9865 Feb, [facility] [place] [facility] [address] [id number] [place] [address]- 7041 Feb, [facility] [place] [facility] [address] [id number] [place] [address]- 8257 Feb, [facility] [place] [facility] [address] [id number] [place] [address]- 9508 Feb, [facility] [place] [facility] [address] [id number] [place] [address]- 8997 Feb, [facility] [place] [facility] [address] [id number] [place] [address]- 0570 Feb, [facility] [place] [facility] [address] [id number] [place] [address]- 5731 Feb, [facility] [place] [facility] [address] [id number] [place] [address]- 0762 Feb, [facility] [place] [facility] [address] [id number] [place] [address]- 7795 Feb, [facility] [place] [facility] [address] [id number] [place] [address]- 8434 Feb, [facility] [place] [facility] [address] [id number] [place] [address]- 4412 Feb, [facility] [place] [facility] [address] [id number] [place] [address]- 3862 Jan, [facility] [place] [facility] [address] [id number] [place] [address] Jan, [facility] [place] [facility] [address] [id number] [place] [address]- 4016 Jan, [facility] [place] [facility] [address] [id number] [place] [address]- 2621 Jan, [facility] [place] [facility] [address] [id number] [place] [address]- 2570 Jan, [facility] [place] [facility] [address] [id number] [place] [address]- 6309 Jan, [facility] [place] [facility] [address] [id number] [place] [address]- 3736 Jan, [facility] [place] [facility] [address] [id number] [place] [address]- 4675 18 Jan, 2014 [facility] [place] [facility] [address] [id number] [place] [address]- 2278 Jan, [facility] [place] [facility] [address] [id number] [place] [address]- 7729 Jan, [facility] [place] [facility] [address] [id number] [place] [address]- 5246 Jan, [facility] [place] [facility] [address] [id number] [place] [address]- 4199 Jan, [facility] [place] [facility] [address] [id number] [place] [address]- 4017 Jan, [facility] [place] [facility] [address] [id number] [place] [address]- 0205 Jan, [facility] [place] [facility] [address] [id number] [place] [address]- 9412 Dec, [facility] [place] [facility] [address] [id number] [place] [address]- 1529 Dec, [facility] [place] [facility] [address] [id number] [place] [address]- 6657 Dec, [facility] [place] [facility] [address] [id number] [place] [address]- 6176 Dec, [facility] [place] [facility] [address] [id number] [place] [address]- 1271 Dec, [facility] [address] [id number] [place] [address]- 5016 Dec, [facility] [place] [facility] [address] [id number] [place] [address]- 8896 Dec, [facility] [place] [facility] [address] [id number] [place] [address]- 3556 Dec, [facility] [place] [facility] [address] [id number] [place] [address]- 2546 Dec, [facility] [place] [facility] [address] [id number] [place] [address]- 7021 Nov, [facility] [place] [facility] [address] [id number] [place] [address]- 3029 Nov, [facility] [place] [facility] [address] [id number] [place] [address]- 0014 Nov, [facility] [address] [id number] [place] [address]- 7117 Nov, [facility] [place] [facility] [address] [id number] [place] [address]- 5380 Oct, [facility] [place] [facility] [address] [id number] [place] [address]- 3846 Oct, [facility] [place] [facility] [address] [id number] [place] [address]- 2548 Oct, [facility] [place] [facility] [address] [id number] [place] [address] 2542 Oct, [facility] [place] [facility] [address] [id number] [place] [address] 2546 Oct, [facility] [place] [facility] [address] [id number] [place] [address]- 2544 Oct, [facility] [place] [facility] [address] [id number] [place] [address]- 7884 Oct, 2013 [facility] [address] [id number] [place] [address]- 8334 23 Oct, 2013 [facility] [address] [id number] [place] [address]- 1726 20 Oct, 2013 [facility] [address] [facility] [id number] [place] [address]- 9876 19 Oct, 2013 [facility] [place] [facility] [address] [id number] [place] [address]- 5889 19 Oct, 2013 [facility] [address] [id number] [place] [address] 18 Oct, 2013 [facility] [address] [id number] [place] [address] 18 Oct, 2013 [facility] [address] [id number] [place] [address]- 8077 17 Oct, 2013 [facility] [place] [facility] [address] [id number] [place] [address]- 7938 17 Oct, 2013 [facility] [address] [id number] [place] [address]- 6356 17 Oct, 2013 [facility] [place] [facility] [address] [id number] [place] [address]- 4312 17 Oct, 2013 [facility] [place] [facility] [address] [id number], [place] [address]- 7454 17 Oct, 2013 [facility] [place] [facility] [address] [id number], [place] [address]- 0722 17 Oct, 2013 [facility] [place] [facility] [address] [id number] [place] [address]- 9666 11 Oct, 2013 [facility] [place] [facility] [address] [id number] [place] [address]- 5028 11 Oct, 2013 [facility] [place] [facility] [address] [id number] [place] [address]- 5347 27 Sep, 2013 [facility] [place] [facility] [address] [id number] [place] [address]- 5460 27 Sep, 2013 [facility] [place] [facility] [address] [id number] [place] [address]- 6698 Sep, [facility] [place] [facility] [address] [id number] [place] [address]- 5584 Sep, [facility] [place] [facility] [address] [id number] [place] [address]- 8169 18 Sep, 2013 [facility] [place] [facility] [address] [id number] [place] [address]- 8321 14 Sep, 2013 [facility] [place] [facility] [address] [id number] [place] [address]- 9923 14 Sep, 2013 [facility] [place] [facility] [address] [id number] [place] [address]- 2542 Sep, [facility] [place] [facility] [address] [id number] [place] [address]- 7975 Sep, [facility] [place] [facility] [address] [id number] [place] [address]- 0067 Sep, [facility] [place] [facility] [address] [id number] [place] [address]- 2414 Sep, [facility] [place] [facility] [address] [id number] [place] [address]- 3052 Sep, [facility] [place] [facility] [address] [id number] [place] [address]- 6741 Aug, [facility] [place] [facility] [address] [id number] [place] [address]- 7596 Aug, [facility] [place] [facility] [address] [id number] [place] [address]- 5079 Aug, [facility] [place] [facility] [address] [id number] [place] [address]- 4758 Aug, [facility] [place] [facility] [address] [id number] [place] [address]- 4519 Aug, [facility] [place] [facility] [address] [id number] [place] [address]- 4986 Aug, 2012 [facility] [place] [facility] [address] [id number] [place] [address] Aug, 2012 [facility] [place] [facility] [address] [id number] [place] [address]- 7762 Aug, 2012 [facility] [place] [facility] [address] [id number] [place] [address]- 9416 Aug, 2012 [facility] [place] [facility] [address] [id number] [place] [address]- 0099 Aug, 2012 [facility] [place] [facility] [address] [id number] [place] [address]- 6986 Aug, [facility] [place] [facility] [address] [id number] [place] [address]- 9158 10 Aug, 2012 [facility] [place] [facility] [address] [id number] [place] [address]- 3029 08 Aug, 2013 [facility] [place] [facility] [address] [id number] [place] [address]- 1724 Aug, [facility] [place] [facility] [address] [id number] [place] [address]- 4039 Aug, [facility] [place] [facility] [address] [id number] [place] [address]- 0979 Aug, [facility] [place] [facility] [address] [id number], [place] [address]- 8727 Aug, [facility] [place] [facility] [address] [id number] [place] [address]- 4131 Jul, [facility] [place] [facility] [address] [id number] [place] [address]- 2196 Jun, [facility] [place] [facility] [address] [id number] [place] [address]- 6354 Jun, [facility] [place] [facility] [address] [id number], [place] [address]- 9786 May, [facility] [place] [facility] [address] [id number] [place] [address]- 6139 May, [facility] [place] [facility] [address] [id number] [place] [address]- 8871 Apr, [facility] [place] [facility] [address] [id number] [place] [address]- 6371 Apr, [facility] [place] [facility] [address] [id number] [place] [address]- 4883 Apr, [facility] [place] [facility] [address] [id number] [place] [address]- 4316 Apr, [facility] [place] [facility] [address] [id number] [place] [address]- 7550 Apr, [facility] [place] [facility] [address] [id number] [place] [address]- 2264 Apr, [facility] [place] [facility] [address] [id number] [place] [address]- 0869 Apr, [facility] [place] [facility] [address] [id number] [place] [address]- 9803 Apr, [facility] [place] [facility] [address] [id number] [place] [address]- 1590 Apr, [facility] [place] [facility] [address] [id number] [place] [address]- 7632 Apr, [facility] [place] [facility] [address] [id number] [place] [address]- 8880 Apr, [facility] [place] [facility] [address] [id number] [place] [address]- 3488 March, [facility] [place] [facility] [address] [id number] [place] [address]- 6063 March, [facility] [place] [facility] [address] [id number] [place] [address]- 7644 March, [facility] [place] [facility] [address] [id number] [place] [address]- 2546 March, [facility] [address] [id number] [place] [address]- 7666 March, [facility] [address] [id number] [place] [address]- 4476 Feb, [facility] [address] [id number] [place] [address]- 8516 Feb, [facility] [address] [id number] [place] [address]- 5946 Jan, [facility] [address] [id number] [place] [address]- 2376 Jan, [facility] [address] [id number] [place] [address]- 5676 Jan, [facility] [address] [id number] [place] [address]- 2916 Jan, [facility] [address] [id number] [place] [address]- 4996 Jan, [facility] [address] [id number] [place] [address]- 3066 Dec, [facility] [address] [id number] [place] [address]- 6486 Dec, [facility] [address] [id number] [place] [address]- 1936 Nov, [facility] [address] [id number] [place] [address]- 2544 Nov, [facility] [address] [id number] [place] [address]- 0756 Nov, [facility] [address] [id number] [place] [address]- 2546 16 Nov, 2012 [facility] [address] [id number] [place] [address]- 5890 15 Nov, 2012 [facility] [place] [facility] [address] [id number] [place] [address]- 2965 14 Nov, 2012 [facility] [place] [facility] [address] [id number] [place] [address]- 5283 14 Nov, 2012 [facility] [place] [facility] [address] [id number] [place] [address]- 2545 11 Nov, 2012 [facility] [place] [facility] [address] [id number] [place] [address]- 9334 Nov, [facility] [place] [facility] [address] [id number] [place] [address]- 1434 Nov, [facility] [place] [facility] [address] [id number] [place] [address]- 8993 Nov, [facility] [place] [facility] [address] [id number] [place] [address]- 9498 Oct, [facility] [place] [facility] [address] [id number] [place] [address]- 7893 Oct, [facility] [place] [facility] [address] [id number] [place] [address]- 7059 Sep, [facility] [place] [facility] [address] [id number] [place] [address]- 4420 Sep, [facility] [place] [facility] [address] [id number], [place] [address]- 1273 Sep, [facility] [place] [facility] [address] [id number], [place] [address]- 2020 Sep, [facility] [place] [facility] [address] [id number] [place] [address]- 2363 Sep, [facility] [place] [facility] [address] [id number] [place] [address]- 2324 Sep, [facility] [place] [facility] [address] [id number] [place] [address]- 6277 Sep, [facility] [place] [facility] [address] [id number] [place] [address]- 4105 Sep, [facility] [place] [facility] [address] [id number] [place] [address]- 8299 Sep, [facility] [place] [facility] [address] [id number] [place] [address]- 9726 Sep, [facility] [place] [facility] [address] [id number] [place] [address]- 2305 Sep, [facility] [place] [facility] [address] [id number] [place] [address]- 5299 Sep, [facility] [place] [facility] [address] [id number] [place] [address]- 7330 Sep, [facility] [place] [facility] [address] [id number] [place] [address]- 0432 Sep, [facility] [place] [facility] [address] [facility] [id number] [place] [address]- 0431 Aug, [facility] [place] [facility] [address] [id number] [place] [address]- 6174 Aug, [facility] [place] [facility] [address] [id number] [place] [address]- 5916 Aug, [facility] [place] [facility] [address] [facility] [id number] [place] [address]- 3414 Aug, [facility] [place] [facility] [address] [facility] [id number] [place] [address]- 6435 Aug, [facility] [place] [facility] [address] [id number], [place] [address]- 6748 Aug, [facility] [place] [facility] [address] [id number] [place] [address]- 3076 Aug, [facility] [place] [facility] [address] [facility] [id number] [place] [address]- 2083 Aug, [facility] [place] [facility] [address] [facility] [id number], [place] [address]- 8260 Aug, [facility] [address] [facility] [id number], [place] [address]- 5849 Aug, [facility] [address] [facility] [id number], [place] [address]- 0731 Aug, [facility] [address] [facility] [id number], [place] [address]- 9166 Aug, [facility] [address] [facility] [id number], [place] [address]- 7496 Aug, [facility] [address] [id number], [place] [address]- 3183 Aug, [facility] [address] [facility] [id number], [place] [address]- 1558 Aug, [facility] [address] [facility] [id number], [place] [address]- 6356 Aug, [facility] [address] [id number], [place] [address]- 5002 Aug, [facility] [address] [facility] [id number][place] 7498 Jul, [facility] [id number], [place] [address]- 9726 Jun, [facility] [id number], [place] [address]- 7874 Aug, [facility] [address] [id number], [place] [address]- 7925 Aug, [facility] [address] [id number] 8886 Aug, IMMUNIZATIONS No Known Immunizations SOCIAL HISTORY Never Assessed REASON FOR VISIT Via Ramya shanks---JOSÉ MANUEL King, pt. states they came and took her oxygen but she is waking up at night not able to breath PLAN OF CARE Activity Details Follow Up 4 Weeks Reason:weight VITAL SIGNS Height 62 in 2017-07-20 Weight 426.1 lbs 2017-07-20 Temperature 99.4 degrees Fahrenheit 2017-07-20 Heart Rate 104 bpm 2017-07-20 Respiratory Rate 22 2017-07-20 Oximetry ambulating w/o oxygen:91 % 2017-07-20 BMI 77.93 kg/m2 2017-07-20 Blood pressure systolic 142 mmHg 2017-07-20 Blood pressure diastolic 83 mmHg 2017-07-20 MEDICATIONS Medication Instructions Dosage Frequency Start Date End Date Duration Status Levothyroxine Sodium 75 MCG Orally Once a day 1 tablet on an empty stomach in the morning 24h Active Potassium Chloride ER 20 MEQ Orally Once a day 1 tablet with food 24h Active Benzonatate 100 mg Orally Three times a day 1 capsule as needed 8h Jun, 14 Jul, 2017 07 days Active Incontinence Supplies - Depends brief-size requested by patient Apr Active Cyclobenzaprine HCl 10 mg Orally at bedtime 1 tablet Active Albuterol Sulfate 90 mcg/actuation take 2 puffs by Inhalation route every 4 -6 hours as needed PRN cough or wheezing Jan, Active Metolazone 2.5 MG Orally Once a day 1 tablet 24h 30 Active Metoprolol Tartrate 25 MG Orally Twice a day 1 tablet with food 12h Active Omeprazole 20 mg Orally Once a day 1 capsule 24h Active Plavix 75 MG Orally Once a day 1 tablet 24h 30 Active PredniSONE 20 mg Orally twice a day 1 tablet 12h Jun, Jul, 07 days Active Ropinirole HCl 4 MG Orally Once a day 1 tablet 1 to 3 hours before bedtime 24h 30 Active Cymbalta 60 mg Orally Once a day 1 capsule 24h 90 Active Wheelchair 1 as directed March, Active Entresto 24-26 MG Orally Twice a day 1 tablet 12h Active Simvastatin 20 mg Orally at bedtime 1 tablet Active Levaquin 500 mg Orally Once a day 1 tablet 24h Jun, 10 Jul, 2017 10 day(s) Active Neurontin 300 MG Orally Once a day at night 1 capsule 30 Active Aspir-81 81 MG Orally Once a day 1 tablet 24h Active RESULTS No Results PROCEDURES Procedure Date Ordered Result Body Site MEASURE BLOOD OXYGEN LEVEL Jul 20, 2017 INSTRUCTIONS MEDICATIONS ADMINISTERED No Known Medications MEDICAL [...]
--- OUTSIDE RECORDS SUMMARY | 2018-05-03 19:49 | XMS REPORT ---
Author Author PIPPA DIMAS [facility] Address [address] [place] [address] Care Team Providers Care Braille Coder Name Role Phone MADDIEArjun PIPPA Unavailable PROBLEMS Type Condition ICD9-CM Code NBE23-VF Code Onset Dates Condition Status SNOMED Code Problem Mixed hyperlipidemia E78.2 Active 921853018 Problem Stasis dermatitis without varicosities I87.2 Active 31782171 Problem Edema of both legs R60.0 Active 239495038 Problem Morbid (severe) obesity due to excess calories E66.01 Active 604205101 Problem Chronic pain syndrome G89.4 Active 656967804 Problem Dependence on supplemental oxygen Z99.81 Active 729374153886 Problem 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 Active 29572881 Problem Gastroesophageal reflux disease without esophagitis K21.9 Active 043017311 Problem Urge incontinence of urine N39.41 Active 23458692 Problem Restless legs syndrome G25.81 Active 275171252 Problem Essential hypertension I10 Active 46351142 Problem Chronic stasis dermatitis I83.10 Active 02099085 Problem Renal insufficiency N28.9 Active 598632737 Problem Acquired hypothyroidism E03.9 Active 093806896 Problem Lymphedema I89.0 Active 397244285 Problem Lumbar pain M54.5 Active 276028628 Problem Nocturnal hypoxia G47.34 Active 875926965 ALLERGIES No Information ENCOUNTERS Encounter Location Date Diagnosis [facility] [id number] [address] Feb, [facility] [id number] [address] 5644 Feb, [facility] [id number] [address] 5097 Jan, [facility] [id number] [place] [address] 77816- 4430 28 Jan, 2018 [facility] [id number] [place] [address] 28592- 8120 Jan, Acquired hypothyroidism E03.9 ; Morbid (severe) obesity due to excess calories E66.01 ; Body mass index (BMI) 70 or greater, adult Z68.45 ; Cellulitis of left anterior lower leg L03.116 ; Restless legs syndrome G25.81 ; Nocturnal hypoxia G47.34 and Dependence on supplemental oxygen Z99.81 [facility] [id number] [place] [address] 75151- 3370 Jan, [facility] [id number] [place] [address] 30678- 6111 12 Dec, 2017 [facility] [id number] [place] [address] 76282- 4694 Oct, [facility] [id number] [place] [address] 75664- 9346 07 Oct, 2017 [facility] [id number] [place] [address] 01816- 8789 Sep, [facility] [id number] [place] [address] 12391- 7968 16 Sep, 2017 [facility] [id number] [place] [address] 32472- 5466 16 Sep, 2017 Dental examination Z01.20 [facility] [id number] [place] [address] 43901- 2319 Sep, Morbid obesity due to excess calories E66.01 ; Body mass index (BMI) of 70 or greater in adult Z68.45 ; Stasis dermatitis without varicosities I87.2 ; Lymphedema I89.0 ; Renal insufficiency N28.9 ; Acquired hypothyroidism E03.9 ; Cellulitis L03.90 ; Bronchitis J40 and BMI 40.0-44.9, adult Z68.41 [facility] [id number] [place] [address] 72445- 5351 Aug, [facility] [address] [facility] [id number] [id number] Aug, Dental examination Z01.20 [facility] [id number] [place] [address] 74280- 3054 Aug, [facility] [id number] [address]- 3740 26 Jul, 2017 [facility] [id number] [place] [address] 49697- 5156 Jul, [facility] [address] [facility] [id number] [place] [address] 27988- 6891 18 Jul, 2017 [facility] [id number] [place] [address] 76499- 8803 14 Jul, 2017 [facility] [id number] [place] [address] 27553- 0535 Jul, [facility] [id number] [place] [address] 89930- 7104 Jun, [facility] [id number] [place] [address] 50234- 5316 Jun, Dependence on nocturnal oxygen therapy Z99.81 ; Morbid obesity due to excess calories E66.01 and Bronchitis J40 [facility] [id number] [address]- 2776 Jun, Restless legs syndrome G25.81 [facility] [id number] [address]- 0878 Jun, [facility] [id number] [place] [address] 35427- 1594 May, [facility] [id number] [place] [address] [id number] Apr, [facility] [id number] [address] 1421 Apr, [facility] [id number] [place] [address] 36884- 7905 Apr, Essential hypertension I10 [facility] [id number] [place] [address] 98552- 4955 Apr, [facility] [id number] [place] [address] 31621- 4833 Apr, Chronic pain syndrome G89.4 and Urge incontinence of urine N39.41 [facility] [id number] [place] [address] 28907- 5716 March, Acquired hypothyroidism E03.9 [facility] [id number] [place] [address] 58608- 8375 March, [facility] [id number] [place] [address] 83518- 3979 March, [facility] [id number] [place] [address] 64850- 3611 March, Chronic pain syndrome G89.4 ; Essential [...] extremity L03.116 and Screening breast examination Z12.39 [address] [address] [place] [address] 57593- 6567 March, [facility] [id number] [place] [address] 01750- 0998 Feb, [facility] [id number] [place] [address] 25948- 7143 Feb, [facility] [id number] [place] [address] 08263- 2811 Feb, Chronic pain syndrome G89.4 [facility] IN [facility] [id number] [place] [address] 52064 -7084 Feb, Right foot pain M79.671 and Right foot sprain, initial encounter S93.601A [facility] [address] [address]- 1672 Jan, [facility] [id number] [place] [address] 28579- 3190 Jan, [facility] [id number] [place] [address] 11660- 7828 Jan, Chronic pain syndrome G89.4 [facility] [id number] [place] [address] 55708- 5520 Jan, [facility] [id number] [place] [address] 31977- 1028 Dec, [facility] [id number] [place] [address] 61403- 3262 Dec, [facility] [id number] [place] [address] 10283- 3067 Dec, Pain in right knee M25.561 ; Pain in left knee M25.562 ; Essential hypertension I10 ; Chronic stasis dermatitis I83.10 ; Restless legs syndrome G25.81 ; Acquired hypothyroidism E03.9 ; Dependence on nocturnal oxygen therapy Z99.81 ; Mixed hyperlipidemia E78.2 ; Lymphedema I89.0 ; Chronic pain syndrome G89.4 ; Gastroesophageal reflux disease without esophagitis K21.9 and Urge incontinence of urine N39.41 [facility] [id number] [address]- 3733 Nov, Mixed hyperlipidemia E78.2 [facility] [id number] [address]- 2834 Nov, [facility] [id number] [place] [address] 71261- 4403 Nov, [facility] [id number] [address]- 1001 Nov, [facility] [id number] [address]0883 Nov, Stasis ulcer, left I83.029 [facility] [id number] [address]- 3531 Nov, [facility] [id number] [address]- 2996 Oct, [facility] [id number] [address]- 6822 Oct, [facility] [id number] [address]- 4426 Oct, [facility] [id number] [address]- 8690 Sep, [facility] [id number] [address]- 7224 Sep, [address] [id number] Sep, [facility] [id number] [address]- 1836 Aug, [facility] [id number] [address]- 3772 Jul, [facility] [id number] [address]- 4668 Jul, [facility] [id number] [address]- 1149 Jul, [facility] [id number] [address]- 6185 Jul, [facility] [address] [address]- 7705 Jul, Chest pain, unspecified type R07.9 ; Dyspnea on exertion R06.09 ; Essential hypertension I10 ; Hyperlipidemia, unspecified hyperlipidemia type E78.5 ; Left bundle branch block I44.7 and Hypothyroidism, unspecified type E03.9 [facility] [id number] [place] [address] 39110 -2242 Jun, Fever, unspecified fever cause R50.9 ; Headache, unspecified headache type R51 ; SOB (shortness of breath) R06.02 and Strep pharyngitis J02.0 [facility] [id number] [place] [address] 27114- 8880 Jun, [facility] [address] 29076- 4164 Jun, [facility] [address] 32513- 7768 Jun, Essential hypertension I10 ; Mixed hyperlipidemia E78.2 and Acquired hypothyroidism E03.9 [facility] [id number] [place] [address] 67894- 3641 Jun, Edema of both legs R60.0 ; Hypoxia R09.02 and Essential hypertension I10 [facility] [address] 36173- 6198 Jun, [address] [address] 37462- 2028 Jun, Edema of both legs R60.0 ; Hypoxia R09.02 and Essential hypertension I10 [facility] [id number] [place] [address] 05114- 2873 Jun, Essential hypertension I10 ; Dependence on supplemental oxygen Z99.81 and Edema of both legs R60.0 [facility] [id number] [place] [address] 63318- 0327 May, Lumbar pain M54.5 ; Essential hypertension I10 ; Edema of both legs R60.0 ; Stasis dermatitis without varicosities I87.2 and Left knee pain M25.562 [facility] [id number] [place] [address] 85772- 0052 May, [facility] [address] 17577- 0077 May, [facility] [address] [address]- 1827 May, [facility] [id number] [place] [address] 79705- 8598 Apr, [facility] [address] [place] [address] 98748- 0439 Apr, [facility] [id number] [place] [address] 22768- 6976 March, [facility] [id number] [place] [address] 83350- 6824 March, Lymphedema I89.0 ; Morbid obesity due to excess calories E66.01 ; Alteration in mobility due to weakness R53.1 and Hypoxia R09.02 [facility] [id number] [place] [address] 92891- 2754 March, Abdominal wall mass R19.00 [facility] [id number] [place] [address] 01023- 0572 March, [facility] [id number] [place] [address] 40200- 9858 March, Abdominal wall mass R19.00 ; Lower abdominal pain R10.30 ; Alteration in mobility due to weakness R53.1 ; Hypoxia R09.02 and Lymphedema I89.0 [address] [address] [address]- 0510 Feb, [facility] [address] [place] [address] 99259- 1187 Feb, Acquired hypothyroidism E03.9 ; Dependence on machine for supplemental oxygen V46.2 ; Restless legs syndrome G25.81 ; Essential hypertension I10 ; Renal insufficiency N28.9 ; Chronic stasis dermatitis I83.10 ; Mixed hyperlipidemia E78.2 ; Other chronic pain 338.29 and Cellulitis of left lower extremity L03.116 [facility] [id number] [place] [address] 97163- 9080 Feb, [facility] [id number] [place] [address] 34616- 3616 Feb, [facility] [address] 62446 -9270 Feb, Shortness of breath R06.02 and Bronchitis J40 [address] [address] 80808- 2382 Jan, Dependence on supplemental oxygen Z99.81 [address] [address] 29879- 6100 Jan, [place] [address] 07900- 8719 Dec, [place] [facility] [address] 08552- 4386 Dec, [address] [facility] [address] 39326- 0380 Nov, Osteoarthritis of knees, bilateral M17.0 [address] [address] 54778- 1644 Nov, Dependence on machine for supplemental oxygen V46.2 ; Nocturnal hypoxia G47.34 and Urgency of urination R39.15 [address] [address] 62026- 2309 Nov, [facility] [address] 92099- 6944 Oct, Pain in right knee M25.561 and Pain in left knee M25.562 [facility] [address] 20431- 4167 Oct, Acquired hypothyroidism E03.9 ; Renal insufficiency N28.9 and Chronic stasis dermatitis I83.10 [address] [facility] [address] 20344- 5443 Oct, [facility] [id number] [place] [address] 20821- 1802 Sep, Cellulitis L03.90 ; Left knee pain M25.562 ; Essential hypertension I10 ; Lymphedema I89.0 ; Lumbar pain M54.5 ; Morbid obesity due to excess calories E66.01 and Renal insufficiency N28.9 [facility] [id number] [place] [address] 29273- 7145 Sep, Cellulitis L03.90 and Lymphedema I89.0 [facility] [id number] [place] [address] 34479- 2782 Sep, [address] [facility] [address] 25628- 6158 Sep, [facility] [id number] [place] [address] 95551- 9311 Sep, Left knee pain M25.562 ; Lumbar pain M54.5 ; Restless legs syndrome G25.81 ; Acquired hypothyroidism E03.9 and Essential hypertension I10 [facility] [id number] [place] [address] 68452- 3993 Jul, [facility] [id number] [place] [address] 22338- 7006 Jun, [facility] [id number] [place] [address] 41405- 5895 May, [facility] [id number] [place] [address] 88392- 8700 May, [facility] [id number] [place] [address] 16858- 6408 May, Hypertension 997.91 ; Restless legs syndrome [RLS] 333.94 ; Unspecified venous (peripheral) insufficiency 459.81 ; Unspecified hypothyroidism 244.9 and Other chronic pain 338.29 [facility] [id number] [place] [address] 08425- 4560 Apr, [facility] [id number] [address]- 0052 Apr, [facility] [address] [place] [address] 11337- 7606 Apr, Restless legs syndrome [RLS] 333.94 ; Shortness of breath 786.05 ; Unspecified venous (peripheral) insufficiency 459.81 ; Unspecified hypothyroidism 244.9 ; Obesity, unspecified 278.00 ; Other chronic pain 338.29 ; Hypertension 997.91 and Hyperlipidemia 272.4 [facility] [id number] [address]- 5194 Feb, [facility] [id number] [place] [address] 63915- 1948 Feb, [facility] [id number] [place] [address] 72050- 7899 Jan, [facility] [id number] [place] [address] 332002- 6656 Jan, [facility] [id number] [address]- 6713 Jan, [facility] [id number] [place] [address] 04254- 0405 Jan, [facility] [address] [address]- 3575 Jan, [facility] [address] [address] 5443 Jan, [facility] [address] [address]- 0335 Jan, [facility] [id number] [place] [address] 40473- 5449 Jan, [facility] [address] 1777 Jan, [facility] [address] 0570 Jan, [facility] [place] [facility] [address] [id number] [place] [address]- 0376 Jan, [facility] [place] [facility] [address] [id number] [place] [address]- 5591 Jan, [facility] [place] [facility] [address] [id number] [place] [address]- 0033 Jan, [facility] [place] [facility] [address] [id number] [place] [address]- 0068 Jan, [facility] [place] [facility] [address] [id number] [place] [address]- 6876 Dec, [facility] [place] [facility] [address] [id number] [place] [address]- 4842 Dec, [facility] [place] [facility] [address] [id number] [place] [address]- 2392 Nov, [facility] [place] [facility] [address] [id number] [place] [address]- 6383 Nov, [facility] [place] [facility] [address] [id number] [place] [address]- 3050 Nov, [facility] [place] [facility] [address] [id number] [place] [address]- 9391 Nov, [facility] [place] [facility] [address] [id number] [address]- 8462 Nov, [facility] [place] [facility] [address] [id number] [address]- 4352 Nov, [facility] [place] [facility] [address] [id number] [place] [address]- 4822 Nov, [facility] [place] [facility] [address] [id number] [place] [address]- 0439 Nov, [facility] [place] [facility] [address] [id number] [place] [address]- 0628 Nov, [facility] [place] [facility] [address] [id number] [address]- 2040 14 Nov, 2014 [facility] [place] [facility] [address] [id number] [place] [address]- 5996 14 Nov, 2014 [facility] [place] [facility] [address] [id number] [address]- 8573 Nov, [facility] [place] [facility] [address] [facility] [id number] [place] [address]- 9863 Nov, [facility] [place] [facility] [address] [id number] [place] [address]- 8995 Nov, [facility] [place] [facility] [id number] [place] [address], [place] [address]- 2087 Nov, [facility] [place] [facility] [address] [id number] [place] [address]- 6997 Nov, [facility] [place] [facility] [address] [facility] [id number] [place] [address]- 0899 Oct, [facility] [place] [facility] [address] [id number] [place] [address]- 0056 Oct, [facility] [place] [facility] [address] [facility] [id number] [place] [address]- 1554 Sep, [facility] [place] [facility] [address] [facility] [id number] [place] [address]- 4077 Aug, [facility] [place] [facility] [address] [id number] [address]- 6250 Aug, [facility] [place] [facility] [address] [id number] [address]- 3391 Aug, [facility] [place] [facility] [address] [id number] [place] [address]- 8350 Aug, [facility] [place] [facility] [address] [facility] [id number] [place] [address]- 2398 Aug, [facility] [place] [facility] [address] [facility] [id number] [address]- 3822 Aug, [facility] [place] [facility] [address] [id number] [place] [address]- 0810 Aug, [facility] [place] [facility] [address] [id number] [place] [address]- 9690 Aug, [facility] [place] [facility] [address] [id number] [place] [address]- 1739 Aug, [facility] [place] [facility] [address] [id number] [place] [address]- 1972 Aug, [facility] [place] [facility] [address] [id number] [place] [address]- 2340 Jun, [facility] [place] [facility] [address] [id number] [place] [address]- 8496 Jun, [facility] [place] [facility] [address] [id number] [place] [address]- 1672 Jun, [facility] [place] [facility] [address] [id number] [place] [address]- 1679 Jun, [facility] [place] [facility] [address] [id number] [place] [address]- 6004 Jun, [facility] [place] [facility] [address] [id number] [place] [address]- 8928 Jun, [facility] [place] [facility] [address] [id number] [place] [address]- 7449 Jun, [facility] [place] [facility] [address] [id number] [place] [address]- 3672 Jun, [facility] [place] [facility] [address] [id number] [place] [address]- 6157 Jun, [facility] [place] [facility] [address] [id number] [place] [address]- 3047 Jun, [facility] [place] [facility] [address] [id number] [place] [address] May, [facility] [place] [facility] [address] [id number] [place] [address] May, [facility] [place] [facility] [address] [id number] [place] [address] May, [facility] [place] [facility] [address] [id number] [place] [address] May, [facility] [place] [facility] [address] [id number] [place] [address] May, [facility] [place] [facility] [address] [id number] [place] [address] May, [facility] [place] [facility] [address] [id number] [place] [address] May, [facility] [place] [facility] [address] [id number] [place] [address] May, [facility] [place] [facility] [address] [id number] [place] [address] May, 2013 [facility] [place] [facility] [address] [id number] [place] [address] May, 2013 [facility] [place] [facility] [address] [id number] [place] [address] May, [facility] [place] [facility] [address] [id number] [place] [address] May, 2013 [facility] [place] [facility] [address] [id number] [place] [address] May, [facility] [place] [facility] [address] [id number] [place] [address] May, 2013 [facility] [place] [facility] [address] [id number] [place] [address] May, [facility] [place] [facility] [address] [id number] [place] [address] May, [facility] [place] [facility] [address] [id number] [place] [address] May, 2013 [facility] [place] [facility] [address] [id number] [place] [address] May, [facility] [place] [facility] [address] [id number] [place] [address] Apr, [facility] [place] [facility] [address] [id number] [place] [address] Apr, [facility] [place] [facility] [address] [id number] [place] [address] Apr, [facility] [place] [facility] [address] [id number] [place] [address] Apr, [facility] [place] [facility] [address] [id number] [place] [address] Apr, [facility] [place] [facility] [address] [id number] [place] [address] Apr, [facility] [place] [facility] [address] [id number] [place] [address] Apr, [facility] [place] [facility] [address] [id number] [place] [address] Apr, [facility] [place] [facility] [address] [id number] [place] [address] Apr, [facility] [place] [facility] [address] [id number] [place] [address] Apr, [facility] [place] [facility] [address] [id number] [place] [address] Apr, [facility] [place] [facility] [address] [id number] [place] [address] Apr, [facility] [place] [facility] [address] [id number] [place] [address] March, [facility] [place] [facility] [address] [id number] [place] [address] March, [facility] [place] [facility] [address] [id number] [place] [address] 9747 March, [facility] [place] [facility] [address] [id number] [place] [address] 0412 March, [facility] [place] [facility] [address] [id number] [place] [address] 6233 March, [facility] [place] [facility] [address] [id number] [place] [address] 6756 March, [facility] [place] [facility] [address] [id number] [place] [address] 74[address] March, [facility] [place] [facility] [address] [id number] [place] [address] 69[address] March, [facility] [place] [facility] [address] [id number] [place] [address] 6981 March, [facility] [place] [facility] [address] [id number] [place] [address] 1461 March, [facility] [place] [facility] [address] [id number] [place] [address] 1104 March, [facility] [place] [facility] [address] [id number] [place] [address] 4982 Feb, [facility] [place] [facility] [address] [id number] [place] [address]- 9050 Feb, [facility] [place] [facility] [address] [id number] [place] [address] 3800 Feb, [facility] [place] [facility] [address] [id number] [place] [address]- 9135 Feb, [facility] [place] [facility] [address] [id number] [place] [address]- [address] Feb, [facility] [place] [facility] [address] [id number] [place] [address]- 4845 Feb, [facility] [place] [facility] [address] [id number] [place] [address]- 1157 Feb, [facility] [place] [facility] [address] [id number] [place] [address]- 2074 Feb, [facility] [place] [facility] [address] [id number] [place] [address]- 9651 Feb, [facility] [place] [facility] [address] [id number] [place] [address]- 5253 Feb, [facility] [place] [facility] [address] [id number] [place] [address]- 5254 Feb, [facility] [place] [facility] [address] [id number] [place] [address]- 2514 Feb, [facility] [place] [facility] [address] [id number] [place] [address]- 4224 Feb, [facility] [place] [facility] [address] [id number] [place] [address]- 8398 Feb, [facility] [place] [facility] [address] [id number] [place] [address]- 4874 Feb, [facility] [place] [facility] [address] [id number] [place] [address]- 1187 Feb, [facility] [place] [facility] [address] [id number] [place] [address]- 3392 Feb, [facility] [place] [facility] [address] [id number] [place] [address]- 8269 Feb, [facility] [place] [facility] [address] [id number] [place] [address]- 2352 Feb, [facility] [place] [facility] [address] [id number] [place] [address]- 0527 Feb, [facility] [place] [facility] [address] [id number] [place] [address]- 3127 Jan, [facility] [place] [facility] [address] [id number] [place] [address]- 7183 Jan, [facility] [place] [facility] [address] [id number] [place] [address]- 3946 Jan, [facility] [place] [facility] [address] [id number] [place] [address]- 7321 25 Jan, 2014 [facility] [place] [facility] [address] [id number] [place] [address]- 7750 24 Jan, 2014 [facility] [place] [facility] [address] [id number] [place] [address] 24 Jan, 2014 [facility] [place] [facility] [address] [id number] [place] [address]- 3242 18 Jan, 2014 [facility] [place] [facility] [address] [id number] [place] [address]- 7305 18 Jan, 2014 [facility] [place] [facility] [address] [id number] [place] [address]- 7727 14 Jan, 2014 [facility] [place] [facility] [address] [id number] [place] [address]- 5368 14 Jan, 2014 [facility] [place] [facility] [address] [id number] [place] [address]- 9296 Jan, [facility] [place] [facility] [address] [id number] [place] [address]- 4158 Jan, [facility] [place] [facility] [address] [id number] [place] [address]- 0240 05 Jan, 2014 [facility] [place] [facility] [address] [id number] [place] [address]- 5691 Jan, [facility] [place] [facility] [address] [id number] [place] [address]- 3117 Dec, [facility] [place] [facility] [address] [id number] [place] [address]- 4761 Dec, [facility] [place] [facility] [address] [id number] [place] [address]- 6883 Dec, [facility] [place] [facility] [address] [id number] [place] [address]- 7326 Dec, [facility] [place] [facility] [address] [id number] [place] [address]- 5436 Dec, [facility] [address] [id number] [place] [address]- 9903 Dec, [facility] [place] [facility] [address] [id number] [place] [address]- 7638 Dec, [facility] [place] [facility] [address] [id number] [place] [address]- 0988 Dec, [facility] [place] [facility] [address] [id number] [place] [address]- 1738 Dec, [facility] [place] [facility] [address] [id number] [place] [address]- 4452 Nov, [facility] [place] [facility] [address] [id number] [place] [address]- 8755 Nov, [facility] [place] [facility] [address] [id number] [place] [address]- 8954 Nov, [facility] [place] [facility] [address] [id number] [place] [address]- 6654 Nov, [facility] [place] [facility] [address] [id number] [place] [address]- 9758 Oct, [facility] [place] [facility] [address] [id number] [place] [address]- 9524 Oct, [facility] [place] [facility] [address] [id number] [place] [address]- 2169 Oct, [facility] [place] [facility] [address] [id number] [place] [address]- 5542 Oct, [facility] [place] [facility] [address] [id number] [place] [address]- 5165 Oct, [facility] [place] [facility] [address] [id number] [place] [address]- 3702 Oct, [facility] [place] [facility] [address] [id number] [place] [address]- 6209 Oct, [facility] [place] [facility] [address] [id number] [place] [address]- 7182 23 Oct, 2012 [facility] [address] [id number] [place] [address]- 8956 20 Oct, 2013 [facility] [address] [id number] [place] [address] 19 Oct, 2013 [facility] [address] [id number] [place] [address]- 2616 19 Oct, 2013 [facility] [address] [id number] [place] [address]- 1758 18 Oct, 2013 [facility] [address] [id number] [place] [address] 18 Oct, 2013 [facility] [address] [id number] [place] [address]- 5384 17 Oct, 2013 [facility] [address] [id number] [place] [address]- 6441 17 Oct, 2013 [facility] [address] [id number] [place] [address]- 0709 17 Oct, 2013 [facility] [address] [id number] [place] [address]- 2795 17 Oct, 2013 [facility] [address] [id number] [place] [address]- 8488 17 Oct, 2013 [facility] [address] [id number] [place] [address]- 4350 17 Oct, 2013 [facility] [address] [id number] [place] [address]- 1955 11 Oct, 2013 [facility] [address] [id number] [place] [address]- 8234 11 Oct, 2013 [facility] [address] [id number] [place] [address]- 3134 27 Sep, 2013 [facility] [address] [id number] [place] [address]- 1558 Sep, [facility] [place] [facility] [address] [id number] [place] [address]- 4329 Sep, [facility] [place] [facility] [address] [id number] [place] [address]- 1010 Sep, [facility] [place] [facility] [address] [id number] [place] [address]- 5310 18 Sep, 2013 [facility] [place] [facility] [address] [id number] [place] [address]- 4569 Sep, [facility] [place] [facility] [address] [id number] [place] [address]- 9977 Sep, [facility] [place] [facility] [address] [id number] [place] [address]- 7990 Sep, [facility] [place] [facility] [address] [id number] [place] [address]- 6856 Sep, [facility] [place] [facility] [address] [id number] [place] [address]- 4202 Sep, [facility] [place] [facility] [address] [id number] [place] [address]- 6997 Sep, [facility] [place] [facility] [address] [id number] [place] [address]- 5256 Sep, [facility] [place] [facility] [address] [id number] [place] [address]- 2617 Aug, [facility] [place] [facility] [address] [id number] [place] [address]- 7469 Aug, [facility] [place] [facility] [address] [id number] [place] [address]- 3120 Aug, [facility] [place] [facility] [address] [id number] [place] [address]- 7917 Aug, [facility] [place] [facility] [address] [id number] [place] [address]- 8953 Aug, [facility] [place] [facility] [address] [id number] [place] [address]- 5949 Aug, 2012 [facility] [place] [facility] [address] [id number] [place] [address]- 9900 Aug, 2012 [facility] [place] [facility] [address] [id number] [place] [address]- 4625 Aug, 2012 [facility] [place] [facility] [address] [id number] [place] [address]- 2136 16 Aug, 2012 [facility] [place] [facility] [address] [id number] [place] [address]- 5140 16 Aug, 2012 [facility] [place] [facility] [address] [id number] [place] [address]- 5950 10 Aug, 2012 [facility] [place] [facility] [address] [id number] [place] [address]- 4934 10 Aug, 2012 [facility] [place] [facility] [address] [id number] [place] [address]- 4983 08 Aug, 2012 [facility] [place] [facility] [address] [id number] [place] [address]- 1210 07 Aug, 2013 [facility] [place] [facility] [address] [id number] [place] [address]- 7618 04 Aug, 2013 [facility] [place] [facility] [address] [id number] [place] [address]- 9046 Aug, [facility] [place] [facility] [address] [id number] [place] [address]- 5488 Aug, [facility] [place] [facility] [address] [id number] [place] [address]- 4496 Jul, [facility] [place] [facility] [address] [id number] [place] [address]- 0561 Jun, [facility] [place] [facility] [address] [id number] [place] [address]- 1676 Jun, [facility] [place] [facility] [address] [id number] [place] [address]- 7272 May, [facility] [place] [facility] [address] [id number] [place] [address]- 5335 May, [facility] [place] [facility] [address] [id number] [place] [address]- 4186 Apr, [facility] [place] [facility] [address] [id number] [place] [address]- 5791 Apr, [facility] [place] [facility] [address] [id number] [place] [address]- 0033 Apr, [facility] [place] [facility] [address] [id number] [place] [address]- 3199 Apr, [facility] [place] [facility] [address] [id number] [place] [address]- 6026 Apr, [facility] [place] [facility] [address] [id number] [place] [address]- 4565 Apr, [facility] [place] [facility] [address] [id number] [place] [address]- 5107 07 Apr, 2013 [facility] [place] [facility] [address] [id number] [place] [address]- 0282 07 Apr, 2013 [facility] [place] [facility] [address] [id number] [place] [address]- 7742 Apr, [facility] [place] [facility] [address] [id number] [place] [address]- 7837 Apr, [facility] [place] [facility] [address] [id number] [place] [address]- 0306 Apr, [facility] [place] [facility] [address] [id number] [place] [address]- 8327 March, [facility] [place] [facility] [address] [id number] [place] [address]- 6116 March, [facility] [place] [facility] [address] [id number] [place] [address]- 3728 March, [facility] [place] [facility] [address] [id number] [place] [address]- 0153 March, [facility] [address] [id number] [place] [address]- 9776 March, [facility] [address] [id number] [place] [address]- 0116 Feb, [facility] [address] [id number] [place] [address]- 1773 Feb, [facility] [address] [id number] [place] [address]- 0493 Jan, [facility] [address] [id number] [place] [address]- 2430 Jan, [facility] [address] [id number] [place] [address]- 5762 Jan, [facility] [address] [id number] [place] [address]- 5636 Jan, [facility] [address] [id number] [place] [address]- 6032 Jan, [facility] [address] [id number] [place] [address]- 1965 Dec, [facility] [place] [facility] [address] [id number] [place] [address]- 1296 Dec, [facility] [address] [id number] [place] [address]- 8167 Nov, [facility] [place] [facility] [address] [id number] [place] [address]- 8850 Nov, [facility] [place] [facility] [address] [id number] [place] [address]- 8446 Nov, [facility] [place] [facility] [address] [id number] [place] [address]- 2826 Nov, [facility] [place] [facility] [address] [id number] [place] [address]- 9956 Nov, [facility] [place] [facility] [address] [id number] [place] [address]- 0816 14 Nov, 2012 [facility] [address] [id number] [place] [address]- 5510 14 Nov, 2012 [facility] [address] [id number] [place] [address]- 3400 11 Nov, 2012 [facility] [address] [id number] [place] [address]- 8103 Nov, [facility] [address] [id number] [place] [address]- 6529 Nov, [facility] [address] [id number] [place] [address]- 9646 Nov, [facility] [address] [id number] [place] [address]- 2746 Oct, [facility] [address] [id number] [place] [address]- 9545 Oct, [facility] [address] [id number] [place] [address]- 9357 Sep, [facility] [address] [id number] [place] [address]- 6766 Sep, [facility] [address] [id number] [place] [address]- 2107 Sep, [facility] [address] [id number] [place] [address]- 1358 Sep, [facility] [address] [id number] [place] [address]- 0432 Sep, [facility] [address] [id number] [place] [address]- 3163 Sep, [facility] [address] [id number] [place] [address]- 5795 Sep, [facility] [address] [id number] [place] [address]- 8609 Sep, [facility] [place] [facility] [address] [id number] [place] [address]- 4021 Sep, [facility] [place] [facility] [address] [id number] [place] [address]- 7066 Sep, [facility] [place] [facility] [address] [id number] [place] [address]- 3984 Sep, [facility] [place] [facility] [address] [id number] [place] [address]- 5711 Sep, [facility] [place] [facility] [address] [id number] [place] [address]- 3486 Sep, [facility] [place] [facility] [address] [id number] [place] [address]- 9844 Sep, [facility] [place] [facility] [address] [facility] [id number] [place] [address]- 4335 Aug, [facility] [place] [facility] [address] [id number] [place] [address]- 1359 Aug, [facility] [place] [facility] [address] [facility] [id number] [place] [address]- 7916 Aug, [facility] [place] [facility] [address] [facility] [id number] [place] [address]- 2023 Aug, [facility] [place] [facility] [address] [facility] [id number] [place] [address]- 2172 Aug, [facility] [place] [facility] [address] [id number] [place] [address]- 7477 Aug, [facility] [place] [facility] [address] [facility] [id number] [place] [address]- 6420 Aug, [facility] [place] [facility] [address] [facility] [id number] [place] [address]- 4876 Aug, [facility] [place] [facility] [address] [facility] [id number] [place] [address]- 2707 Aug, [facility] [place] [facility] [address] [id number] [place] [address]- 9068 Aug, [facility] [id number] [address]- 3844 Aug, [facility] [id number] [address]- 4218 Aug, [facility] [id number] [address]- 9840 Aug, [facility] [id number] [address]- 8133 Aug, [facility] [id number] [place] [address]- 2085 Aug, [facility] [id number] [place] [address]- 2342 Aug, [facility] [id number] [address]- 8793 Aug, [facility] [id number] [address]- 4476 Jul, [facility] [id number] [address]- 4558 Jun, [facility] [id number] [address]- 1428 Aug, [facility] [id number] [address]- 8778 Aug, [facility] [id number] [address]- 3730 Aug, IMMUNIZATIONS No Known Immunizations SOCIAL HISTORY Never Assessed REASON FOR VISIT Requests return call PLAN OF CARE VITAL SIGNS MEDICATIONS Unknown [...]
--- OUTSIDE RECORDS SUMMARY | 2018-05-03 19:50 | XMS REPORT ---
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 Name Role Phone JUDIE PIPPA Unavailable PROBLEMS Type Condition ICD9-CM Code LZL25-GT Code Onset Dates Condition Status SNOMED Code Problem Mixed hyperlipidemia E78.2 Active 677781994 Problem Stasis dermatitis without varicosities I87.2 Active 71298174 Problem Edema of both legs R60.0 Active 979136032 Problem Morbid (severe) obesity due to excess calories E66.01 Active 592320447 Problem Chronic pain syndrome G89.4 Active 416825384 Problem Dependence on supplemental oxygen Z99.81 Active [id number] Problem 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 Active 05610840 Problem Gastroesophageal reflux disease without esophagitis K21.9 Active 229076478 Problem Urge incontinence of urine N39.41 Active 64152643 Problem Restless legs syndrome G25.81 Active 209735360 Problem Essential hypertension I10 Active 50225807 Problem Chronic stasis dermatitis I83.10 Active 37704179 Problem Renal insufficiency N28.9 Active 979938418 Problem Acquired hypothyroidism E03.9 Active 078971718 Problem Lymphedema I89.0 Active 872954696 Problem Lumbar pain M54.5 Active 802918803 Problem Nocturnal hypoxia G47.34 Active 608729303 ALLERGIES Substance Reaction Event Type Date Status Bactrim DS Unknown Drug Allergy Sep, Active ENCOUNTERS Encounter Location Date Diagnosis [facility] [address] [facility] [id number] [address] Apr, [facility] [address] [facility] [place] [id number], [place] [address] Feb, [facility] [address] [facility] [id number], [place] [address] Jan, [facility] [id number] [place] [address] 66581- 8538 Jan, [place] [id number] [place] [address] 77061- 3218 Jan, Acquired hypothyroidism E03.9 ; Morbid (severe) obesity due to excess calories E66.01 ; Body mass index (BMI) 70 or greater, adult Z68.45 ; Cellulitis of left anterior lower leg L03.116 ; Restless legs syndrome G25.81 ; Nocturnal hypoxia G47.34 and Dependence on supplemental oxygen Z99.81 [place] [id number] [place] [address] 22996- 5269 Jan, [place] [id number] [place] [address] 50762- 9213 Dec, [place] [id number] [place] [address] 24443- 5762 Oct, [place] [id number] [place] [address] 19150- 2766 07 Oct, 2017 [place] [id number] [place] [address] 33656- 0602 Sep, [place] [id number] [place] [address] 09424- 8310 16 Sep, 2017 [place] [id number] [place] [address] 69823- 7243 16 Sep, 2017 Dental examination Z01.20 [facility] [id number] [place] [address] 35474- 4571 01 Sep, 2017 Morbid obesity due to excess calories E66.01 ; Body mass index (BMI) of 70 or greater in adult Z68.45 ; Stasis dermatitis without varicosities I87.2 ; Lymphedema I89.0 ; Renal insufficiency N28.9 ; Acquired hypothyroidism E03.9 ; Cellulitis L03.90 ; Bronchitis J40 and BMI 40.0-44.9, adult Z68.41 [place] [id number] [place] [address] 14817- 2754 Aug, [facility] [address] [id number] [id number] Aug, Dental examination Z01.20 [facility] [address]65100[place], [place] [address] 8157 Aug, [facility] [address], [place] [address]- 6633 Jul, [facility] [address]65100[place], [place] [address]- 8245 Jul, [facility] [id number] [place] [address] 83465- 0725 18 Jul, 2017 [facility] [id number] [place] [address] 62741- 3700 14 Jul, 2017 [facility] [id number] [place] [address] 21211- 1193 Jul, [facility] [address]65[address], [place] [address]- 2107 Jun, [facility] [id number] [place] [address] 35565- 6699 Jun, Dependence on nocturnal oxygen therapy Z99.81 ; Morbid obesity due to excess calories E66.01 and Bronchitis J40 [facility] [address], [place] [address]- 8010 Jun, Restless legs syndrome G25.81 [facility] [address], [place] [address] 1705 Jun, [facility] [id number] [place] [address] 28051- 2850 May, [facility] [id number] [place] [address] [id number] Apr, [facility] [address]100[place], [place] [address]- 4814 Apr, [facility] [address], [place] [address]- 3965 Apr, Essential hypertension I10 [facility] [id number] [place] [address] 38841- 3919 Apr, [facility] [id number] [place] [address] 07565- 9636 13 Apr, 2017 Chronic pain syndrome G89.4 and Urge incontinence of urine N39.41 [facility] [id number] [place] [address] 11409- 7887 March, Acquired hypothyroidism E03.9 [place] [id number] [place] [address] 46803- 8925 March, [facility] [id number] [place] [address] 57556- 1473 March, [place] [id number] [place] [address] 96712- 3675 March, Chronic pain syndrome G89.4 ; Essential [...] extremity L03.116 and Screening breast examination Z12.39 [facility] [id number] [place] [address] 19705- 6596 March, [facility] [id number] [place] [address] 37800- 4996 Feb, [facility] [id number] [place] [address] 20705- 4769 Feb, [facility] [id number] [place] [address] 37364- 7168 Feb, Chronic pain syndrome G89.4 [facility] [id number] [place] [address] 01134 -9064 Feb, Right foot pain M79.671 and Right foot sprain, initial encounter S93.601A [place] [id number] [place] [address] 32991- 4249 Jan, [place] [id number] [place] [address] 70895- 2147 Jan, [place] [id number] [place] [address] 37741- 8668 Jan, Chronic pain syndrome G89.4 [place] [id number] [place] [address] 73883- 4550 Jan, [place] [id number] [place] [address] 93585- 4846 Dec, [place] [id number] [place] [address] 96348- 8689 Dec, [place] [id number] [place] [address] 68582- 0330 Dec, Pain in right knee M25.561 ; Pain in left knee M25.562 ; Essential hypertension I10 ; Chronic stasis dermatitis I83.10 ; Restless legs syndrome G25.81 ; Acquired hypothyroidism E03.9 ; Dependence on nocturnal oxygen therapy Z99.81 ; Mixed hyperlipidemia E78.2 ; Lymphedema I89.0 ; Chronic pain syndrome G89.4 ; Gastroesophageal reflux disease without esophagitis K21.9 and Urge incontinence of urine N39.41 [place] [id number] [place] [address] 76931- 7708 Nov, Mixed hyperlipidemia E78.2 [place] [id number] [place] [address] 87254- 5521 Nov, [place] [id number] [place] [address] 42254- 2019 Nov, [place] [id number] [place] [address] 82788- 2490 Nov, [facility] [address] [facility] [id number] [address] Nov, Stasis ulcer, left I83.029 [facility] [address] [id number] [address]- 3856 Nov, [facility] [address], [place] [address]- 8012 Oct, [facility] [address], [place] [address]- 7350 Oct, [facility] [address], [place] [address]- 5285 Oct, [facility] [address], [place] [address]- 6346 Sep, [facility] [address]100[place], [place] [address]- 3888 Sep, [address] [id number] Sep, [facility] [address], [place] [address]- 7827 Aug, [facility] [address], [place] [address]- 5055 Jul, [facility] [address], [place] [address]- 8195 Jul, [facility] [address], [place] [address]- 1525 Jul, [facility] [address], [place] [address]- 6731 Jul, [facility] [address] [id number], [place] [address]- 4577 14 Jul, 2016 Chest pain, unspecified type R07.9 ; Dyspnea on exertion R06.09 ; Essential hypertension I10 ; Hyperlipidemia, unspecified hyperlipidemia type E78.5 ; Left bundle branch block I44.7 and Hypothyroidism, unspecified type E03.9 [facility] [id number] [place] [address] 03639 -1362 Jun, Fever, unspecified fever cause R50.9 ; Headache, unspecified headache type R51 ; SOB (shortness of breath) R06.02 and Strep pharyngitis J02.0 [facility] [address] 48689- 3386 Jun, [facility] [address] 62597- 3383 Jun, [facility] [address] 33893- 9491 Jun, Essential hypertension I10 ; Mixed hyperlipidemia E78.2 and Acquired hypothyroidism E03.9 [facility] [address] 09634- 1236 Jun, Edema of both legs R60.0 ; Hypoxia R09.02 and Essential hypertension I10 [facility] [address] 06383- 7245 Jun, [facility] [address] 67745- 0948 Jun, Edema of both legs R60.0 ; Hypoxia R09.02 and Essential hypertension I10 [facility] [address] 94183- 0232 Jun, Essential hypertension I10 ; Dependence on supplemental oxygen Z99.81 and Edema of both legs R60.0 [facility] [address] 01845- 7096 May, Lumbar pain M54.5 ; Essential hypertension I10 ; Edema of both legs R60.0 ; Stasis dermatitis without varicosities I87.2 and Left knee pain M25.562 [facility] [address] 09423- 1737 May, [facility] [address], [place] [address]- 0170 May, [facility] [address], [place] [address]- 3193 May, [facility] [address], [place] [address]- 6289 Apr, [facility] [id number] [place] [address] 00702- 9307 Apr, [facility] [address], [place] [address]- 4179 March, [place] [id number] [place] [address] 61632- 8426 March, Lymphedema I89.0 ; Morbid obesity due to excess calories E66.01 ; Alteration in mobility due to weakness R53.1 and Hypoxia R09.02 [place] [address], [place] [address]- 4303 March, Abdominal wall mass R19.00 [facility] [address], [place] [address]- 8869 March, [place] [address], [place] [address]- 5026 March, Abdominal wall mass R19.00 ; Lower abdominal pain R10.30 ; Alteration in mobility due to weakness R53.1 ; Hypoxia R09.02 and Lymphedema I89.0 [facility] [address], [place] [address]- 7014 Feb, [facility] [address], [place] [address]- 1894 Feb, Acquired hypothyroidism E03.9 ; Dependence on machine for supplemental oxygen V46.2 ; Restless legs syndrome G25.81 ; Essential hypertension I10 ; Renal insufficiency N28.9 ; Chronic stasis dermatitis I83.10 ; Mixed hyperlipidemia E78.2 ; Other chronic pain 338.29 and Cellulitis of left lower extremity L03.116 [place] [id number] [place] [address] 76771- 4317 Feb, [place] [address] 83784- 2479 Feb, [facility] [id number] [place] [address] 41510 -4012 Feb, Shortness of breath R06.02 and Bronchitis J40 [place] [address] 99864- 5206 Jan, Dependence on supplemental oxygen Z99.81 [place] [address] 15959- 4271 Jan, [place] [address] 30092- 8349 Dec, [address] 96872- 9633 Dec, [place] [address] 71716- 2251 Nov, Osteoarthritis of knees, bilateral M17.[address] 22140- 8901 Nov, Dependence on machine for supplemental oxygen V46.2 ; Nocturnal hypoxia G47.34 and Urgency of urination R39.[address] 77155- 1502 Nov, [address] 53863- 8571 Oct, Pain in right knee M25.561 and Pain in left knee M25.562 [id number] [place] [address] 74941- 9208 Oct, Acquired hypothyroidism E03.9 ; Renal insufficiency N28.9 and Chronic stasis dermatitis I83.10 [place] [address] 91219- 8681 Oct, [place] [id number] [place] [address] 50230- 4303 Sep, Cellulitis L03.90 ; Left knee pain M25.562 ; Essential hypertension I10 ; Lymphedema I89.0 ; Lumbar pain M54.5 ; Morbid obesity due to excess calories E66.01 and Renal insufficiency N28.9 [place] [address] 70149- 4877 Sep, Cellulitis L03.90 and Lymphedema I89.0 [place] [address] 44130- 1976 Sep, [place] [address] 04046- 1713 Sep, [place] [address] 28859- 3647 Sep, Left knee pain M25.562 ; Lumbar pain M54.5 ; Restless legs syndrome G25.81 ; Acquired hypothyroidism E03.9 and Essential hypertension I10 [place] [address] 67600- 1890 Jul, [place] [id number] [place] [address] 06343- 1553 Jun, [place] [id number] [place] [address] 38632- 8312 May, [place] [id number] [place] [address] 43977- 0427 May, [place] [address] 41392- 9215 May, Hypertension 997.91 ; Restless legs syndrome [RLS] 333.94 ; Unspecified venous (peripheral) insufficiency 459.81 ; Unspecified hypothyroidism 244.9 and Other chronic pain 338.29 [place] [address] 91124- 6166 Apr, [facility] [address], [place] [address]- 2253 Apr, [facility] [id number] [place] [address] 36257- 1067 Apr, Restless legs syndrome [RLS] 333.94 ; Shortness of breath 786.05 ; Unspecified venous (peripheral) insufficiency 459.81 ; Unspecified hypothyroidism 244.9 ; Obesity, unspecified 278.00 ; Other chronic pain 338.29 ; Hypertension 997.91 and Hyperlipidemia 272.4 [facility] [address], [place] [address]- 3098 Feb, [facility] [id number] [place] [address] 016331- 6733 Feb, [facility] [id number] [place] [address] 36874- 0131 Jan, [facility] [id number] [place] [address] 09600- 0171 Jan, [facility] [id number] [place] [address] 63642- 1426 Jan, [facility] [id number] [place] [address] 18689- 0222 Jan, [facility] [address], [place] [address]- 3273 Jan, [facility] [address], [place] [address]- 1326 Jan, [facility] [address], [place] [address]- 1923 Jan, [facility] [id number] [place] [address] 056693- 6839 Jan, [facility] [address] 0571 Jan, [facility] [id number] [place] [address], [place] [address]- 8463 12 Jan, 2015 [facility] [place] [facility] [address] [id number] [place] [address]- 4952 Jan, [facility] [place] [facility] [address] [id number] [place] [address]- 6349 11 Jan, 2015 [facility] [place] [facility] [address] [id number] [place] [address]- 9182 Jan, [facility] [place] [facility] [address] [id number] [place] [address]- 0941 Jan, [facility] [place] [facility] [address] [id number] [place] [address]- 4632 Dec, [facility] [place] [facility] [address] [id number] [place] [address]- 5519 Dec, [facility] [place] [facility] [address] [id number] [place] [address]- 2991 Nov, [facility] [place] [facility] [address] [id number] [place] [address]- 0530 Nov, [facility] [place] [facility] [address] [id number] [place] [address]- 3823 Nov, [facility] [place] [facility] [address] [id number] [place] [address]- 2082 Nov, [facility] [place] [facility] [address] [id number] [place] [address]- 5975 Nov, [facility] [place] [facility] [address] [id number] [place] [address]- 4869 Nov, [facility] [place] [facility] [address] [id number] [place] [address]- 8007 Nov, [facility] [place] [facility] [address] [id number] [place] [address]- 9471 Nov, [facility] [place] [facility] [address] [id number] [place] [address]- 7830 Nov, [facility] [place] [facility] [address] [id number] [place] [address]- 9590 Nov, [facility] [place] [facility] [address] [id number] [place] [address]- 6663 Nov, [facility] [place] [facility] [address] [id number] [place] [address]- 7043 Nov, [facility] [place] [facility] [address] [id number] [place] [address]- 9083 Nov, [facility] [place] [facility] [address] [id number] [place] [address]- 8615 Nov, [facility] [place] [facility] [address] [id number] [place] [address]- 4344 Nov, [facility] [place] [facility] [address] [id number] [place] [address]- 7724 Nov, [facility] [place] [facility] [address] [id number] [place] [address]- 4876 Oct, [facility] [place] [facility] [address] [id number] [place] [address]- 3009 Oct, [facility] [place] [facility] [address] [id number] [place] [address]- 5837 Sep, [facility] [place] [facility] [address] [id number] [place] [address]- 5818 Aug, [facility] [place] [facility] [address] [id number] [place] [address]- 1399 Aug, [facility] [place] [facility] [address] [id number] [place] [address]- 0349 Aug, [facility] [place] [facility] [address] [id number] [place] [address]- 9794 Aug, [facility] [place] [facility] [address] [id number] [place] [address]- 4561 Aug, [facility] [place] [facility] [address] [id number] [place] [address]- 3488 Aug, [facility] [place] [facility] [address] [id number] [place] [address]- 5703 Aug, [facility] [place] [facility] [address] [id number] [place] [address]- 3684 Aug, [facility] [place] [facility] [address] [id number] [place] [address]- 2141 Aug, [facility] [place] [facility] [address] [id number] [place] [address]- 4884 Aug, [facility] [place] [facility] [address] [id number] [place] [address]- 8317 Jun, [facility] [place] [facility] [address] [id number] [place] [address]- 8986 Jun, [facility] [place] [facility] [address] [id number] [place] [address]- 6780 Jun, [facility] [place] [facility] [address] [id number] [place] [address]- 4067 Jun, [facility] [place] [facility] [address] [id number] [place] [address]- 3535 Jun, [facility] [place] [facility] [address] [id number] [place] [address]- 8644 Jun, [facility] [place] [facility] [address] [id number] [place] [address]- 1952 Jun, [facility] [place] [facility] [address] [id number] [place] [address]- 7454 Jun, [facility] [place] [facility] [address] [id number] [place] [address]- 2347 Jun, [facility] [place] [facility] [address] [id number] [place] [address]- 0219 Jun, [facility] [place] [facility] [address] [id number] [place] [address]- 7537 May, [facility] [place] [facility] [address] [id number] [place] [address]- 3800 May, 2013 [facility] [place] [facility] [address] [id number] [place] [address]- 9877 May, 2013 [facility] [place] [facility] [address] [id number] [place] [address] May, 2013 [facility] [place] [facility] [address] [id number] [place] [address] May, 2013 [facility] [place] [facility] [address] [id number] [place] [address] May, 2013 [facility] [place] [facility] [address] [id number] [place] [address] May, 2013 [facility] [place] [facility] [address] [id number] [place] [address] May, 2013 [facility] [place] [facility] [address] [id number] [place] [address] May, 2013 [facility] [place] [facility] [address] [id number] [place] [address] May, 2013 [facility] [place] [facility] [address] [id number] [place] [address] May, 2013 [facility] [place] [facility] [address] [id number] [place] [address] May, 2013 [facility] [place] [facility] [address] [id number] [place] [address] May, 2013 [facility] [place] [facility] [address] [id number] [place] [address] May, 2013 [facility] [place] [facility] [address] [id number] [place] [address] May, 2013 [facility] [place] [facility] [address] [id number] [place] [address] May, 2013 [facility] [place] [facility] [address] [id number] [place] [address] May, [facility] [place] [facility] [address] [id number] [place] [address] May, [facility] [place] [facility] [address] [id number] [place] [address] Apr, [facility] [place] [facility] [address] [id number] [place] [address] Apr, [facility] [place] [facility] [address] [id number] [place] [address] Apr, [facility] [place] [facility] [address] [id number] [place] [address] Apr, [facility] [place] [facility] [address] [id number] [place] [address] Apr, [facility] [place] [facility] [address] [id number] [place] [address] Apr, [facility] [place] [facility] [address] [id number] [place] [address] Apr, [facility] [place] [facility] [address] [id number] [place] [address] Apr, [facility] [place] [facility] [address] [id number] [place] [address] Apr, [facility] [place] [facility] [address] [id number] [place] [address] Apr, [facility] [place] [facility] [address] [id number] [address] Apr, [facility] [place] [facility] [address] [id number] [place] [address] Apr, [facility] [place] [facility] [address] [id number] [place] [address] March, [facility] [place] [facility] [address] [id number] [place] [address] 4[address] March, [facility] [place] [facility] [address] [id number], [place] [address] March, [facility] [address] [id number] [place] [address] 7307 March, [facility] [place] [facility] [address] [id number] [place] [address] 7440 March, [facility] [place] [facility] [address] [id number] [place] [address] 2066 March, [facility] [place] [facility] [address] [id number] [place] [address] 6216 March, [facility] [place] [facility] [address] [id number] [place] [address] 1245 March, [facility] [place] [facility] [address] [id number] [place] [address] 2237 March, [facility] [address] [id number] [place] [address] March, [facility] [place] [facility] [address] [id number] [place] [address] 8776 March, [facility] [place] [facility] [address] [id number] [place] [address] 5881 Feb, [facility] [place] [facility] [address] [id number] [place] [address]- 0610 Feb, [facility] [place] [facility] [address] [id number] [place] [address]- 1004 Feb, [facility] [place] [facility] [address] [id number] [place] [address]- 5191 Feb, [facility] [place] [facility] [address] [id number] [place] [address]- 4337 Feb, [facility] [place] [facility] [address] [id number] [place] [address]- 1716 Feb, [facility] [place] [facility] [address] [id number] [place] [address]- 7112 Feb, [facility] [place] [facility] [address] [id number] [place] [address]- 1645 Feb, [facility] [place] [facility] [address] [id number] [place] [address]- 1614 Feb, [facility] [place] [facility] [address] [id number] [place] [address]- 8419 Feb, [facility] [place] [facility] [address] [id number] [place] [address]- 2778 Feb, [facility] [place] [facility] [address] [id number] [place] [address]- 6931 Feb, [facility] [place] [facility] [address] [id number] [place] [address]- 6326 Feb, [facility] [place] [facility] [address] [id number] [place] [address]- 9002 Feb, [facility] [place] [facility] [address] [id number] [place] [address]- 8982 Feb, [facility] [place] [facility] [address] [id number] [place] [address]- 4644 Feb, [facility] [place] [facility] [address] [id number] [place] [address]- 9086 Feb, [facility] [place] [facility] [address] [id number] [place] [address]- 9299 Feb, [facility] [place] [facility] [address] [id number] [place] [address]- 1185 Feb, [facility] [place] [facility] [address] [id number] [place] [address]- 7943 Feb, [facility] [place] [facility] [address] [id number] [place] [address]- 0633 Jan, [facility] [place] [facility] [address] [id number] [place] [address] Jan, [facility] [place] [facility] [address] [id number] [place] [address]- 5324 Jan, [facility] [place] [facility] [address] [id number] [place] [address]- 6610 Jan, [facility] [place] [facility] [address] [id number] [place] [address]- 5798 Jan, [facility] [place] [facility] [address] [id number] [place] [address]- 0701 Jan, [facility] [place] [facility] [address] [id number] [place] [address]- 2332 Jan, [facility] [place] [facility] [address] [id number] [place] [address]- 8052 18 Jan, 2014 [facility] [place] [facility] [address] [id number] [place] [address]- 3283 Jan, [facility] [place] [facility] [address] [id number] [place] [address]- 7684 Jan, [facility] [place] [facility] [address] [id number] [place] [address]- 0237 Jan, [facility] [place] [facility] [address] [id number] [place] [address]- 3625 Jan, [facility] [place] [facility] [address] [id number] [place] [address]- 0085 Jan, [facility] [place] [facility] [address] [id number] [place] [address]- 9350 Jan, [facility] [place] [facility] [address] [id number] [place] [address]- 2584 Dec, [facility] [place] [facility] [address] [id number] [place] [address]- 5285 Dec, [facility] [place] [facility] [address] [id number] [place] [address]- 5462 Dec, [facility] [place] [facility] [address] [id number] [place] [address]- 8585 Dec, [facility] [place] [facility] [address] [id number] [place] [address]- 4935 Dec, [facility] [address] [id number] [place] [address]- 6446 Dec, [facility] [place] [facility] [address] [id number] [place] [address]- 8086 Dec, [facility] [place] [facility] [address] [id number] [place] [address]- 1986 Dec, [facility] [place] [facility] [address] [id number] [place] [address]- 2546 Dec, [facility] [place] [facility] [address] [id number] [place] [address]- 3189 Nov, [facility] [place] [facility] [address] [id number] [place] [address]- 0455 Nov, [facility] [place] [facility] [address] [id number] [place] [address]- 3052 Nov, [facility] [address] [id number] [place] [address]- 1772 Nov, [facility] [place] [facility] [address] [id number] [place] [address]- 3170 Oct, [facility] [place] [facility] [address] [id number] [place] [address]- 6038 Oct, [facility] [place] [facility] [address] [id number] [place] [address]- 254 Oct, [facility] [place] [facility] [address] [id number] [place] [address] 2549 Oct, [facility] [place] [facility] [address] [id number] [place] [address] 2546 Oct, [facility] [place] [facility] [address] [id number] [place] [address]- 2544 Oct, [facility] [place] [facility] [address] [id number] [place] [address]- 6034 Oct, 2013 [facility] [address] [id number] [place] [address]- 3855 23 Oct, 2013 [facility] [address] [id number] [place] [address]- 9636 20 Oct, 2013 [facility] [address] [facility] [id number] [place] [address]- 6666 19 Oct, 2013 [facility] [place] [facility] [address] [id number] [place] [address]- 9964 19 Oct, 2013 [facility] [address] [id number] [place] 2897 18 Oct, 2013 [facility] [address] [id number] [place] [address] 18 Oct, 2013 [facility] [address] [id number] [place] [address]- 4289 17 Oct, 2013 [facility] [place] [facility] [address] [id number] [place] [address]- 0074 17 Oct, 2013 [facility] [address] [id number] [place] [address]- 8519 17 Oct, 2013 [facility] [place] [facility] [address] [id number] [place] [address]- 0843 17 Oct, 2013 [facility] [place] [facility] [address] [id number], [place] [address]- 7188 17 Oct, 2013 [facility] [place] [facility] [address] [id number] [address]- 2067 17 Oct, 2013 [facility] [place] [facility] [address] [id number] [place] [address]- 0916 11 Oct, 2013 [facility] [place] [facility] [address] [id number] [place] [address]- 9568 11 Oct, 2013 [facility] [place] [facility] [address] [id number] [place] [address]- 7991 27 Sep, 2013 [facility] [place] [facility] [address] [id number] [place] [address]- 9085 27 Sep, 2013 [facility] [place] [facility] [address] [id number] [place] [address]- 1248 Sep, [facility] [place] [facility] [address] [id number] [place] [address]- 5815 Sep, [facility] [place] [facility] [address] [id number] [place] [address]- 0309 18 Sep, 2013 [facility] [place] [facility] [address] [id number] [place] [address]- 0560 14 Sep, 2013 [facility] [place] [facility] [address] [id number] [place] [address]- 2718 14 Sep, 2013 [facility] [place] [facility] [address] [id number] [place] [address]- 2653 Sep, [facility] [place] [facility] [address] [id number] [place] [address]- 5967 Sep, [facility] [place] [facility] [address] [id number] [place] [address]- 8597 Sep, [facility] [place] [facility] [address] [id number] [place] [address]- 7668 Sep, [facility] [place] [facility] [address] [id number] [place] [address]- 9354 Sep, [facility] [place] [facility] [address] [id number] [place] [address]- 8433 Aug, [facility] [place] [facility] [address] [id number] [place] [address]- 8959 Aug, [facility] [place] [facility] [address] [id number] [place] [address]- 0421 Aug, [facility] [place] [facility] [address] [id number] [place] [address]- 4869 Aug, [facility] [place] [facility] [address] [id number] [place] [address]- 4669 Aug, [facility] [place] [facility] [address] [id number] [place] [address]- 1041 Aug, 2012 [facility] [place] [facility] [address] [id number] [place] 1134 Aug, 2012 [facility] [place] [facility] [address] [id number] [place] [address]- 0896 Aug, 2012 [facility] [place] [facility] [address] [id number] [place] [address]- 1311 Aug, 2012 [facility] [place] [facility] [address] [id number] [place] [address]- 1179 Aug, 2012 [facility] [place] [facility] [address] [id number] [place] [address]- 7368 Aug, [facility] [place] [facility] [address] [id number] [place] [address]- 9426 10 Aug, 2012 [facility] [place] [facility] [address] [id number] [place] [address]- 6319 08 Aug, 2013 [facility] [place] [facility] [address] [id number] [place] [address]- 9070 Aug, [facility] [place] [facility] [address] [id number] [place] [address]- 9077 Aug, [facility] [place] [facility] [address] [id number] [place] [address]- 5952 Aug, [facility] [place] [facility] [address] [id number], [place] [address]- 4981 Aug, [facility] [place] [facility] [address] [id number] [place] [address]- 9646 Jul, [facility] [place] [facility] [address] [id number] [place] [address]- 4177 Jun, [facility] [place] [facility] [address] [id number] [place] [address]- 3234 Jun, [facility] [place] [facility] [address] [id number], [place] [address]- 9209 May, [facility] [place] [facility] [address] [id number] [place] [address]- 0358 May, [facility] [place] [facility] [address] [id number] [place] [address]- 3850 Apr, [facility] [place] [facility] [address] [id number] [place] [address]- 6246 Apr, [facility] [place] [facility] [address] [id number] [place] [address]- 0911 Apr, [facility] [place] [facility] [address] [id number] [place] [address]- 6256 Apr, [facility] [place] [facility] [address] [id number] [place] [address]- 5029 Apr, [facility] [place] [facility] [address] [id number] [place] [address]- 4730 Apr, [facility] [place] [facility] [address] [id number] [place] [address]- 8020 Apr, [facility] [place] [facility] [address] [id number] [place] [address]- 9045 Apr, [facility] [place] [facility] [address] [id number] [place] [address]- 0822 Apr, [facility] [place] [facility] [address] [id number] [place] [address]- 0670 Apr, [facility] [place] [facility] [address] [id number] [place] [address]- 2389 Apr, [facility] [place] [facility] [address] [id number] [place] [address]- 5051 March, [facility] [place] [facility] [address] [id number] [place] [address]- 5296 March, [facility] [place] [facility] [address] [id number] [place] [address]- 0714 March, [facility] [place] [facility] [address] [id number] [place] [address]- 2546 March, [facility] [address] [id number] [place] [address]- 0866 March, [facility] [address] [id number] [place] [address]- 5866 Feb, [facility] [address] [id number] [place] [address]- 0026 Feb, [facility] [address] [id number] [place] [address]- 3906 Jan, [facility] [address] [id number] [place] [address]- 6076 Jan, [facility] [address] [id number] [place] [address]- 2446 Jan, [facility] [address] [id number] [place] [address]- 1936 Jan, [facility] [address] [id number] [place] [address]- 3374 Jan, [facility] [address] [id number] [place] [address]- 1276 Dec, [facility] [address] [id number] [place] [address]- 7706 Dec, [facility] [address] [id number] [place] [address]- 3656 Nov, [facility] [address] [id number] [place] [address]- 254 Nov, [facility] [address] [id number] [place] [address]- 7276 Nov, [facility] [address] [id number] [place] [address]- 2546 16 Nov, 2012 [facility] [address] [id number] [place] [address]- 7754 15 Nov, 2012 [facility] [place] [facility] [address] [id number] [place] [address]- 9466 14 Nov, 2012 [facility] [place] [facility] [address] [id number] [place] [address]- 8962 14 Nov, 2012 [facility] [place] [facility] [address] [id number] [place] [address]- 6478 11 Nov, 2012 [facility] [place] [facility] [address] [id number] [place] [address]- 2118 Nov, [facility] [place] [facility] [address] [id number] [place] [address]- 5692 Nov, [facility] [place] [facility] [address] [id number] [place] [address]- 1728 Nov, [facility] [place] [facility] [address] [id number] [place] [address]- 5041 Oct, [facility] [place] [facility] [address] [id number] [place] [address]- 5944 Oct, [facility] [place] [facility] [address] [id number] [place] [address]- 2589 Sep, [facility] [place] [facility] [address] [id number] [place] [address]- 6685 Sep, [facility] [place] [facility] [address] [id number], [place] [address]- 3390 Sep, [facility] [place] [facility] [address] [id number], [place] [address]- 6100 Sep, [facility] [place] [facility] [address] [id number] [place] [address]- 6740 Sep, [facility] [place] [facility] [address] [id number] [place] [address]- 0332 Sep, [facility] [place] [facility] [address] [id number] [place] [address]- 4896 Sep, [facility] [place] [facility] [address] [id number] [place] [address]- 9162 Sep, [facility] [place] [facility] [address] [id number] [place] [address]- 3492 Sep, [facility] [place] [facility] [address] [id number] [place] [address]- 1210 Sep, [facility] [place] [facility] [address] [id number] [place] [address]- 1441 Sep, [facility] [place] [facility] [address] [id number] [place] [address]- 4301 Sep, [facility] [place] [facility] [address] [id number] [place] [address]- 3628 Sep, [facility] [place] [facility] [address] [id number] [place] [address]- 9840 Sep, [facility] [place] [facility] [address] [facility] [id number] [place] [address]- 3010 Aug, [facility] [place] [facility] [address] [id number] [place] [address]- 6355 Aug, [facility] [place] [facility] [address] [id number] [place] [address]- 3385 Aug, [facility] [place] [facility] [address] [facility] [id number] [place] [address]- 6829 Aug, [facility] [place] [facility] [address] [facility] [id number] [place] [address]- 0034 Aug, [facility] [place] [facility] [address] [id number], [place] [address]- 0625 Aug, [facility] [place] [facility] [address] [id number] [place] [address]- 5287 Aug, [facility] [place] [facility] [address] [facility] [id number] [place] [address]- 3685 Aug, [facility] [place] [facility] [address] [facility] [id number], [place] [address]- 9180 Aug, [facility] [id number], [place] [address]- 7018 Aug, [facility] [id number] 2148 Aug, [facility] [address] [facility] [id number], [place] [address]- 3592 Aug, [facility] [id number] [place] [address]32602- 4395 Aug, [facility] [address] [facility] [id number] 9550 Aug, [facility] [id number] [place] [address]- 3784 Aug, [facility] [address] [id number], [place] [address]- 7711 Aug, [facility] [id number], [place] [address]- 9036 Aug, [facility] [id number], [place] [address]- 1780 Jul, [facility] [id number], [place] [address]- 0707 Jun, [facility] [address]100[place], [place] [address]- 5020 Aug, [facility] [id number], [place] [address]- 1434 Aug, [facility] [address] [id number], [place] [address]- 4463 Aug, IMMUNIZATIONS No Known Immunizations SOCIAL HISTORY Never Assessed REASON FOR VISIT Weight management, pt. states she is starting to get a cold, pt. states her legs are getting bad again and are real hot----[place],CCMA PLAN OF CARE Activity Details Follow Up 4-6 weeks Reason:Weight VITAL SIGNS Height 62 in 2017-09-20 Weight 438.0 lbs 2017-09-20 Temperature 98.6 degrees Fahrenheit 2017-09-20 Heart Rate 102 bpm 2017-09-20 Respiratory Rate 22 2017-09-20 Oximetry 97 % 2017-09-20 BMI 80.10 kg/m2 2017-09-20 Blood pressure systolic 138 mmHg 2017-09-20 Blood pressure diastolic 86 mmHg 2017-09-20 MEDICATIONS Medication Instructions Dosage Frequency Start Date End Date Duration Status Metoprolol Tartrate 25 MG Orally Twice a day 1 tablet with food 12h 30 Active Albuterol Sulfate 90 mcg/actuation take 2 puffs by Inhalation route every 4 -6 hours as needed PRN cough or wheezing Jan, Active Metolazone 2.5 MG Orally Once a day 1 tablet 24h 30 Active Ropinirole HCl 4 MG Orally Once a day 1 tablet 1 to 3 hours before bedtime 24h 30 Active Keflex 500 mg Orally 3 times a day 1 capsule 8h Sep, Sep, 7 days Active Incontinence Supplies - Depends brief-size requested by patient 8h Apr Active Levothyroxine Sodium 75 mcg Orally Once a day 1 tablet on an empty stomach in the morning 24h 30 Active Wheelchair 1 as directed March, Active Cymbalta 60 mg Orally Once a day 1 capsule 24h 30 Active Plavix 75 MG Orally Once a day 1 tablet 24h 30 Active Simvastatin 20 mg Orally at bedtime 1 tablet Active Proventil HFA 108 (90 Base) MCG/ACT INHALE TWO PUFFS BY MOUTH EVERY 4 TO 6 HOURS NEEDED FOR COUGH OR WHEEZE 17 Active Potassium Chloride ER 20 meq Orally Once a day 1 tablet with food 24h 30 Active Aspir-81 81 MG Orally Once a day 1 tablet 24h Active Triamcinolone Acetonide 0.1 % Externally Twice a day 1 application to affected area 12h Sep, 10 days Active Entresto 24-26 MG Orally Twice a day 1 tablet 12h Active Benzonatate 100 mg Orally Three times a day 1 capsule as needed 8h Sep, 11 Sep, 2017 10 days Active Neurontin 300 MG Orally Once a day at night 1 capsule 30 Active PredniSONE 20 mg Orally Once a day 1 tablet 24h Sep, Sep, 5 days Active Omeprazole 20 mg Orally twice a day 1 capsule 12h Active Cyclobenzaprine HCl 10 mg Orally at bedtime 1 tablet Active RESULTS No Results PROCEDURES Procedure Date Ordered Result Body Site MEASURE BLOOD OXYGEN LEVEL Sep 20, 2017 INSTRUCTIONS MEDICATIONS ADMINISTERED No Known [...]
--- OUTSIDE RECORDS SUMMARY | 2018-05-03 19:52 | XMS REPORT ---
Author Author PIPPA DIMAS [facility] Address [address] [place] [address] Care Team Providers Care Housemaid Name Role Phone PIPPA DIMAS Unavailable PROBLEMS Type Condition ICD9-CM Code AGO46-ED Code Onset Dates Condition Status SNOMED Code Problem Dependence on nocturnal oxygen therapy Z99.81 Active 50470284994099 Problem Left knee pain M25.562 Active 78648777 Problem Essential hypertension I10 Active 59332399 Problem Lumbar pain M54.5 Active 672609446 Problem Restless legs syndrome G25.81 Active 131956971 Problem Acquired hypothyroidism E03.9 Active 531936566 Problem Chronic stasis dermatitis I83.10 Active 73460745 Problem Renal insufficiency N28.9 Active 020406702 Problem Edema of both legs R60.0 Active 281673071 Problem Morbid obesity due to excess calories E66.01 Active 462987615 Problem Stasis dermatitis without varicosities I87.2 Active 61242938 Problem Cellulitis L03.90 Active 781739388 Problem 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 Active 49694008 Problem Dependence on supplemental oxygen Z99.81 Active 383934015548 Problem 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 Active 42899525 Problem Morbid (severe) obesity due to excess calories E66.01 Active 273244793 Problem Bronchitis J40 Active 61031261 Problem Pain in right knee M25.561 Active 02533671 Problem Pain in left knee M25.562 Active 868640208515050 Problem Lymphedema I89.0 Active 130836547 Problem Urge incontinence of urine N39.41 Active 25902831 Problem Chronic pain syndrome G89.4 Active 487156942 Problem Body mass index (BMI) of 70 or greater in adult Z68.45 Active 735806233 Problem Gastroesophageal reflux disease without esophagitis K21.9 Active 541922981 Problem Mixed hyperlipidemia E78.2 Active 811894468 Problem Other chronic pain 338.29 Active 68894623 Problem Nocturnal hypoxia G47.34 Active 365903554 Problem Cellulitis of left lower extremity L03.116 Active 657848524 Problem Alteration in mobility due to weakness R53.1 Active 780120576 Problem Abdominal wall mass R19.00 Active 354434425 Problem Hypoxia R09.02 Active 820005021 Problem Lower abdominal pain R10.30 Active 45345953 ALLERGIES No Information ENCOUNTERS Encounter Location Date Diagnosis [place] [id number] [address]- [address] 27 Jan, 2018 [facility] [address] 07168- 3696 Jan, [place] [address] 12912- 2955 Dec, [place] [address] 31109- 4403 15 Oct, 2017 [place] [address] 98591- 0842 07 Oct, 2017 [place] [address] 43780- 0442 Sep, [place] [address] [place] [id number] [place] [address] 51239- 6807 16 Sep, 2017 [place] [address] [place] [id number] [place] [address] 69642- 6605 16 Sep, 2017 Dental examination Z01.20 [place] [address] 18333- 5271 01 Sep, 2017 Morbid obesity due to excess calories E66.01 ; Body mass index (BMI) of 70 or greater in adult Z68.45 ; Stasis dermatitis without varicosities I87.2 ; Lymphedema I89.0 ; Renal insufficiency N28.9 ; Acquired hypothyroidism E03.9 ; Cellulitis L03.90 ; Bronchitis J40 and BMI 40.0-44.9, adult Z68.41 [place] [address] 59871- 9191 Aug, [facility] [id number] [id number] Aug, Dental examination Z01.20 [facility] [address] [address] 7839 Aug, [facility] [id number] [place] [address] 06046- 6227 Jul, [facility] [id number] [place] [address] 58083- 7724 Jul, [facility] [address] [place] [address] [id number] [place] [address] 08204- 4516 18 Jul, 2017 [facility] [address] [id number] [place] [address] 47169- 8577 Jul, [facility] [address] [place] [id number] [place] [address] 97318- 8274 Jul, [facility] [id number] [place] [address] 34319- 0500 Jun, [facility] [address] [place] [id number] [place] [address] 94453- 0586 Jun, Dependence on nocturnal oxygen therapy Z99.81 ; Morbid obesity due to excess calories E66.01 and Bronchitis J40 [facility] [address] [place] [address] 68236- 5987 Jun, Restless legs syndrome G25.81 [facility] [address] [address]- 5147 Jun, [facility] [address] [place] [address] [id number] [place] [address] 27099- 0621 May, [facility] [address] [id number] [place] [address] [id number] Apr, [facility] [id number] [place] [address] 70196- 5795 Apr, [facility] [address] [address]- 2682 Apr, Essential hypertension I10 [facility] [address] [place] [address] [id number] [place] [address] 91667- 3369 Apr, [facility] [address] [place] [id number] [place] [address] 23201- 7646 13 Apr, 2017 Chronic pain syndrome G89.4 and Urge incontinence of urine N39.41 [facility] [address] [place] [id number] [place] [address] 91099- 4087 March, Acquired hypothyroidism E03.9 [place] [address] [place] [id number] [place] [address] 26032- 1231 March, [facility] [address] [place] [id number] [place] [address] 41146- 5912 March, [place] [address] [place] [id number] [place] [address] 96068- 4110 March, Chronic pain syndrome G89.4 ; Essential [...] extremity L03.116 and Screening breast examination Z12.39 [place] [address] [place] [address] 22650- 2170 March, [facility] [address] [place] [id number] [place] [address] 03032- 4876 Feb, [place] [address] [place] [id number] [place] [address] 45917- 4676 Feb, [facility] [address] [place] [address] [id number] [place] [address] 63229- 8220 Feb, Chronic pain syndrome G89.4 [facility] [address] [id number] [place] [address] 03913 -2442 Feb, Right foot pain M79.671 and Right foot sprain, initial encounter S93.601A [place] [address] [place] [id number] [place] [address] 41342- 2874 Jan, [facility] [address] [place] [id number] [place] [address] 60184- 7978 Jan, [place] [address] [place] [id number] [place] [address] 79969- 9485 Jan, Chronic pain syndrome G89.4 [place] [address] [place] [id number] [place] [address] 64570- 7363 Jan, [place] [address] [place] [id number] [place] [address] 27059- 4298 Dec, [place] [address] [place] [id number] [place] [address] 31454- 7966 Dec, [place] [address] [place] [id number] [place] [address] 36210- 4159 Dec, Pain in right knee M25.561 ; Pain in left knee M25.562 ; Essential hypertension I10 ; Chronic stasis dermatitis I83.10 ; Restless legs syndrome G25.81 ; Acquired hypothyroidism E03.9 ; Dependence on nocturnal oxygen therapy Z99.81 ; Mixed hyperlipidemia E78.2 ; Lymphedema I89.0 ; Chronic pain syndrome G89.4 ; Gastroesophageal reflux disease without esophagitis K21.9 and Urge incontinence of urine N39.41 [place] [address] [place] [address] 37754- 5119 Nov, Mixed hyperlipidemia E78.2 [place] [address] [place] [id number] [place] [address] 61660- 9642 Nov, [place] [address] [place] [id number] [place] [address] 20570- 3395 Nov, [place] [address] [place] [id number] [place] [address] 47882- 0173 Nov, [facility] [id number] [address]6227 Nov, Stasis ulcer, left I83.029 [facility] [id number] [address]- 7236 Nov, [facility] [address] [address]- 8104 Oct, [facility] [address] [address]- 3890 Oct, [facility] [address] [address]- 6614 Oct, [facility] [id number] [address]- 2488 Sep, [facility] [id number] [address]- 0944 Sep, [address] [id number] Sep, [facility] [address] [address]- 6096 Aug, [facility] [address] [address]- 0534 Jul, [facility] [id number] [address]- 5976 Jul, [facility] [address] [address]- 0451 Jul, [facility] [id number] [address]- 7116 Jul, [facility] [id number] [address]- 4740 14 Jul, 2016 Chest pain, unspecified type R07.9 ; Dyspnea on exertion R06.09 ; Essential hypertension I10 ; Hyperlipidemia, unspecified hyperlipidemia type E78.5 ; Left bundle branch block I44.7 and Hypothyroidism, unspecified type E03.9 [facility] [id number] [place] [address] 83441 -5145 Jun, Fever, unspecified fever cause R50.9 ; Headache, unspecified headache type R51 ; SOB (shortness of breath) R06.02 and Strep pharyngitis J02.0 [facility] [address] [place] [address] [id number] [place] [address] 29673- 8214 Jun, [facility] [address] [place] [address] [id number] [place] [address] 10455- 9797 Jun, [facility] [address] [place] [address] [id number] [place] [address] 45401- 6852 Jun, Essential hypertension I10 ; Mixed hyperlipidemia E78.2 and Acquired hypothyroidism E03.9 [facility] [address] [place] [address] [id number] [place] [address] 54167- 8822 Jun, Edema of both legs R60.0 ; Hypoxia R09.02 and Essential hypertension I10 [facility] [id number] [place] [address] 48241- 7428 Jun, [facility] [id number] [place] [address] 96683- 1029 Jun, Edema of both legs R60.0 ; Hypoxia R09.02 and Essential hypertension I10 [facility] [address] [place] [address] 37770- 6305 Jun, Essential hypertension I10 ; Dependence on supplemental oxygen Z99.81 and Edema of both legs R60.0 [facility] [id number] [place] [address] 82471- 7902 May, Lumbar pain M54.5 ; Essential hypertension I10 ; Edema of both legs R60.0 ; Stasis dermatitis without varicosities I87.2 and Left knee pain M25.562 [facility] [id number] [place] [address] 56109- 5580 May, [facility] [id number] [address]- 6438 May, [facility] [address] [address]- 3578 May, [facility] [address] [address]- 5185 Apr, [facility] [address] [place] [id number] [place] [address] 42779- 9106 Apr, [facility] [id number] [place] [address] 23427- 8375 March, [place] [address] [place] [id number] [place] [address] 54721- 9871 March, Lymphedema I89.0 ; Morbid obesity due to excess calories E66.01 ; Alteration in mobility due to weakness R53.1 and Hypoxia R09.02 [place] [address] [place] [id number] [place] [address] 68185- 9587 March, Abdominal wall mass R19.00 [place] [address] [address]- 4068 March, [place] [id number] [place] [address] 01774- 3924 March, Abdominal wall mass R19.00 ; Lower abdominal pain R10.30 ; Alteration in mobility due to weakness R53.1 ; Hypoxia R09.02 and Lymphedema I89.0 [place] [address] [address]- 0229 Feb, [facility] [address] [address]- 4457 Feb, Acquired hypothyroidism E03.9 ; Dependence on machine for supplemental oxygen V46.2 ; Restless legs syndrome G25.81 ; Essential hypertension I10 ; Renal insufficiency N28.9 ; Chronic stasis dermatitis I83.10 ; Mixed hyperlipidemia E78.2 ; Other chronic pain 338.29 and Cellulitis of left lower extremity L03.116 [place] [address] [place] [id number] [place] [address] 28285- 1620 Feb, [facility] [address] 42578- 1748 Feb, [facility] [address] [id number] [place] [address] 62669 -2964 Feb, Shortness of breath R06.02 and Bronchitis J40 [facility] [address] 31694- 4977 Jan, Dependence on supplemental oxygen Z99.81 [place] [address] 97639- 1271 Jan, [place] [address] 06552- 7900 Dec, [place] [address] 69980- 0115 Dec, [place] [address] 67386- 2289 Nov, Osteoarthritis of knees, bilateral M17.[address] 81501- 8000 Nov, Dependence on machine for supplemental oxygen V46.2 ; Nocturnal hypoxia G47.34 and Urgency of urination R39.[address] 61764- 8539 Nov, [address] 35823- 2241 Oct, Pain in right knee M25.561 and Pain in left knee M25.[address] 61391- 5016 Oct, Acquired hypothyroidism E03.9 ; Renal insufficiency N28.9 and Chronic stasis dermatitis I83.10 [place] [address] 03148- 4699 Oct, [facility] [id number] [place] [address] 90730- 2021 Sep, Cellulitis L03.90 ; Left knee pain M25.562 ; Essential hypertension I10 ; Lymphedema I89.0 ; Lumbar pain M54.5 ; Morbid obesity due to excess calories E66.01 and Renal insufficiency N28.9 [facility] [address] 54995- 5406 Sep, Cellulitis L03.90 and Lymphedema I89.0 [place] [address] 65177- 0458 Sep, [place] [address] 67996- 8855 Sep, [place] [address] 83646- 4554 Sep, Left knee pain M25.562 ; Lumbar pain M54.5 ; Restless legs syndrome G25.81 ; Acquired hypothyroidism E03.9 and Essential hypertension I10 [place] [address] 57729- 0130 Jul, [facility] [address] 46264- 8262 Jun, [place] [address] [place] [id number] [place] [address] 82151- 6419 May, [facility] [address] 70119- 1898 May, [facility] [address] 37953- 5500 May, Hypertension 997.91 ; Restless legs syndrome [RLS] 333.94 ; Unspecified venous (peripheral) insufficiency 459.81 ; Unspecified hypothyroidism 244.9 and Other chronic pain 338.29 [place] [address] 66156- 8890 Apr, [facility] [address] [address]- 1844 Apr, [facility] [id number] [place] [address] 04765- 2525 Apr, Restless legs syndrome [RLS] 333.94 ; Shortness of breath 786.05 ; Unspecified venous (peripheral) insufficiency 459.81 ; Unspecified hypothyroidism 244.9 ; Obesity, unspecified 278.00 ; Other chronic pain 338.29 ; Hypertension 997.91 and Hyperlipidemia 272.4 [facility] [address] [address]- 3516 Feb, [facility] [id number] [place] [address] 28853- 9715 Feb, [facility] [id number] [place] [address] 63050- 4356 Jan, [facility] [id number] [place] [address] 73209- 2313 Jan, [facility] [address] [address]- 4251 Jan, [facility] [id number] [place] [address] 70562- 5861 Jan, [facility] [address] [address]- 7661 Jan, [facility] [address] [address]- 1890 Jan, [facility] [address] [address]- 4827 Jan, [facility] [id number] 3354 Jan, [facility] [address] 5600 Jan, [facility] [id number] [place] [address] 55870- 6392 Jan, [facility] [place] [facility] [address] [id number] [place] [address]- 0404 Jan, [facility] [place] [facility] [address] [id number] [place] [address]- 6705 Jan, [facility] [place] [facility] [address] [id number] [place] [address]- 1491 Jan, [facility] [place] [facility] [address] [id number] [place] [address]- 0711 Jan, [facility] [place] [facility] [address] [id number] [place] [address]- 5911 Dec, [facility] [place] [facility] [address] [id number] [place] [address]- 7822 Dec, [facility] [place] [facility] [address] [id number] [place] [address]- 3322 Nov, [facility] [place] [facility] [address] [id number] [place] [address]- 0408 Nov, [facility] [place] [facility] [address] [id number] [place] [address]- 9585 Nov, [facility] [place] [facility] [address] [id number] [place] [address]- 9774 Nov, [facility] [place] [facility] [address] [id number] [place] [address]- 6425 Nov, [facility] [place] [facility] [address] [id number] [place] [address]- 0700 Nov, [facility] [place] [facility] [address] [id number] [place] [address]- 2840 Nov, [facility] [place] [facility] [address] [id number] [place] [address]- 7584 Nov, [facility] [place] [facility] [address] [id number] [place] [address]- 0009 Nov, [facility] [place] [facility] [address] [id number] [place] [address]- 3439 14 Nov, 2014 [facility] [place] [facility] [address] [id number] [place] [address]- 7746 14 Nov, 2014 [facility] [place] [facility] [address] [id number] [place] [address]- 2061 Nov, [facility] [place] [facility] [address] [id number] [place] [address]- 6276 Nov, [facility] [place] [facility] [address] [id number] [place] [address]- 6104 Nov, [facility] [place] [facility] [address] [id number] [place] [address]- 2837 Nov, [facility] [place] [facility] [address] [id number] [place] [address]- 0192 Nov, [facility] [place] [facility] [address] [id number] [place] [address]- 7423 Oct, [facility] [place] [facility] [address] [id number] [place] [address]- 9866 Oct, [facility] [place] [facility] [address] [id number] [place] [address]- 2183 Sep, [facility] [place] [facility] [address] [id number] [place] [address]- 6156 Aug, [facility] [place] [facility] [address] [id number] [place] [address]- 4808 Aug, [facility] [place] [facility] [address] [id number] [place] [address]- 6267 Aug, [facility] [place] [facility] [address] [id number] [place] [address]- 3752 Aug, [facility] [place] [facility] [address] [id number] [place] [address]- 6477 Aug, [facility] [place] [facility] [address] [id number] [place] [address]- 0897 Aug, [facility] [place] [facility] [address] [id number] [place] [address]- 1856 Aug, [facility] [place] [facility] [address] [id number] [place] [address]- 2900 Aug, [facility] [place] [facility] [address] [id number] [place] [address]- 2037 Aug, [facility] [place] [facility] [address] [id number] [place] [address]- 5248 Aug, [facility] [place] [facility] [address] [id number] [place] [address]- 3037 Jun, [facility] [place] [facility] [address] [id number] [place] [address]- 9406 Jun, [facility] [place] [facility] [address] [id number] [place] [address]- 3979 Jun, [facility] [place] [facility] [address] [id number] [place] [address]- 1076 Jun, [facility] [place] [facility] [address] [id number] [place] [address]- 8915 Jun, [facility] [place] [facility] [address] [id number] [place] [address]- 8349 Jun, [facility] [place] [facility] [address] [id number] [address]- 4116 Jun, [facility] [place] [facility] [address] [id number] [place] [address]- 8764 Jun, [facility] [place] [facility] [address] [id number] [place] [address]- 0391 Jun, [facility] [place] [facility] [address] [id number] [place] [address]- 5947 Jun, [facility] [place] [facility] [address] [id number] [place] [address] May, [facility] [place] [facility] [address] [id number] [place] [address] May, 2013 [facility] [place] [facility] [address] [id number] [place] [address] May, 2013 [facility] [place] [facility] [address] [id number] [place] [address] May, 2013 [facility] [place] [facility] [address] [id number] [place] [address] May, 2013 [facility] [place] [facility] [address] [id number] [place] [address] May, 2013 [facility] [place] [facility] [address] [id number] [place] [address] May, 2013 [facility] [place] [facility] [address] [id number] [place] [address] May, 2013 [facility] [place] [facility] [address] [id number] [place] [address] May, 2013 [facility] [place] [facility] [address] [id number] [place] [address] May, 2013 [facility] [place] [facility] [address] [id number] [place] [address] May, 2013 [facility] [place] [facility] [address] [id number] [place] [address] May, 2013 [facility] [place] [facility] [address] [id number] [place] [address] May, 2013 [facility] [place] [facility] [address] [id number] [place] [address] May, 2013 [facility] [place] [facility] [address] [id number] [place] [address] May, 2013 [facility] [place] [facility] [address] [id number] [place] [address]- [address] May, 2013 [facility] [place] [facility] [address] [id number] [place] [address] May, [facility] [place] [facility] [address] [id number] [place] [address] May, [facility] [place] [facility] [address] [id number] [place] [address] Apr, [facility] [place] [facility] [address] [id number] [place] [address] Apr, [facility] [place] [facility] [address] [id number] [place] [address] Apr, [facility] [place] [facility] [address] [id number] [place] [address] Apr, [facility] [place] [facility] [address] [id number] [place] [address] Apr, [facility] [place] [facility] [address] [id number] [place] [address] Apr, [facility] [place] [facility] [address] [id number] [place] [address] Apr, [facility] [place] [facility] [address] [id number] [place] [address] Apr, [facility] [place] [facility] [address] [id number] [place] [address] Apr, [facility] [place] [facility] [address] [id number] [place] [address] Apr, [facility] [place] [facility] [address] [id number] [place] [address] Apr, [facility] [place] [facility] [address] [id number] [place] [address] Apr, [facility] [place] [facility] [address] [id number] [place] [address] March, [facility] [place] [facility] [address] [id number] [place] [address] March, [facility] [place] [facility] [address] [id number] [place] [address] March, [facility] [place] [facility] [address] [id number] [place] [address] March, [facility] [place] [facility] [address] [id number] [place] [address] March, [facility] [place] [facility] [address] [id number] [place] [address] March, [facility] [place] [facility] [address] [id number] [place] [address] March, [facility] [place] [facility] [address] [id number] [place] [address] March, [facility] [place] [facility] [address] [id number] [place] [address] March, [facility] [place] [facility] [address] [id number] [place] [address] March, [facility] [place] [facility] [address] [id number] [place] [address] March, [facility] [place] [facility] [address] [id number] [place] [address] Feb, [facility] [place] [facility] [address] [id number] [place] [address]115 Feb, [facility] [place] [facility] [address] [id number] [place] [address]- 6314 Feb, [facility] [place] [facility] [address] [id number] [place] [address] 1032 Feb, [facility] [place] [facility] [address] [id number] [place] [address] 5178 Feb, [facility] [place] [facility] [address] [id number] [place] [address] 6555 Feb, [facility] [place] [facility] [address] [id number] [place] [address] 9360 Feb, [facility] [place] [facility] [address] [id number] [place] [address]- 5260 Feb, [facility] [address] [id number] [place] [address]- 2055 Feb, [facility] [place] [facility] [address] [id number] [place] [address] 6876 Feb, [facility] [address] [id number] [place] [address]- 6330 Feb, [facility] [place] [facility] [address] [id number] [place] [address]- 4943 Feb, [facility] [address] [id number] [place] [address]- 6447 Feb, [facility] [place] [facility] [address] [id number] [place] [address]- 6925 Feb, [facility] [place] [facility] [address] [id number] [place] [address]- 1687 Feb, [facility] [address] [id number] [place] [address]- 9941 Feb, [facility] [place] [facility] [address] [id number] [place] [address]- 6735 Feb, [facility] [address] [id number] [place] [address]- 5053 Feb, [facility] [place] [facility] [address] [id number] [place] [address]- 0956 Feb, [facility] [place] [facility] [address] [id number] [place] [address]- 9337 Feb, [facility] [place] [facility] [address] [id number] [place] [address] Jan, [facility] [place] [facility] [address] [id number] [place] [address]- 3453 Jan, [facility] [place] [facility] [address] [id number] [place] [address] Jan, [facility] [place] [facility] [address] [id number] [place] [address]- 3923 Jan, [facility] [place] [facility] [address] [id number] [place] [address]- 2804 Jan, [facility] [place] [facility] [address] [id number] [place] [address]- 1015 Jan, [facility] [place] [facility] [address] [id number] [place] [address]- 1222 Jan, [facility] [place] [facility] [address] [id number] [place] [address]- 0042 Jan, [facility] [place] [facility] [address] [id number] [place] [address]- 9593 Jan, [facility] [place] [facility] [address] [id number] [place] [address]- 1377 Jan, [facility] [place] [facility] [address] [id number] [place] [address]- 1696 Jan, [facility] [place] [facility] [address] [id number] [place] [address]- 6774 Jan, [facility] [place] [facility] [address] [id number] [place] [address]- 1058 Jan, [facility] [place] [facility] [address] [id number] [place] [address]- 1387 Jan, [facility] [place] [facility] [address] [id number] [place] [address]- 7770 Dec, [facility] [place] [facility] [address] [id number] [place] [address]- 5601 Dec, [facility] [place] [facility] [address] [id number] [place] [address]- 3144 Dec, [facility] [place] [facility] [address] [id number] [place] [address]- 8994 Dec, [facility] [place] [facility] [address] [id number] [place] [address]- 8136 Dec, [facility] [address] [id number] [place] [address]- 3456 Dec, [facility] [place] [facility] [address] [id number] [place] [address]- 2546 Dec, [facility] [address] [id number] [place] [address]- 7606 Dec, [facility] [place] [facility] [address] [id number] [place] [address]- 2546 Dec, [facility] [address] [id number] [place] [address]- 6620 Nov, [facility] [address] [id number] [place] [address]- 5588 Nov, [facility] [address] [id number] [place] [address]- 7436 Nov, [facility] [address] [id number] [place] [address]- 3998 Nov, [facility] [address] [id number] [place] [address]- 3311 Oct, [facility] [address] [id number] [place] [address]- 9367 Oct, [facility] [place] [facility] [address] [id number] [place] [address] 2545 Oct, [facility] [place] [facility] [address] [id number] [place] [address] 2545 Oct, [facility] [place] [facility] [address] [id number] [place] [address] 2546 Oct, [facility] [place] [facility] [address] [id number] [place] [address]- 2546 Oct, [facility] [place] [facility] [address] [id number] [place] [address]- 9783 Oct, [facility] [address] [id number] [place] [address]- 3303 23 Oct, 2013 [facility] [place] [facility] [address] [id number] [place] [address]- 7622 20 Oct, 2013 [facility] [address] [id number] [place] [address]- 6840 19 Oct, 2013 [facility] [place] [facility] [address] [id number] [place] [address]- 2653 19 Oct, 2013 [facility] [address] [id number] [place] [address]- 5002 18 Oct, 2013 [facility] [address] [id number] [place] [address]- 4166 18 Oct, 2013 [facility] [address] [id number] [place] [address]- 7677 17 Oct, 2013 [facility] [place] [facility] [address] [id number] [place] [address]- 4316 17 Oct, 2013 [facility] [place] [facility] [address] [id number] [place] [address]- 4710 17 Oct, 2013 [facility] [place] [facility] [address] [id number] [place] [address]- 2618 17 Oct, 2013 [facility] [place] [facility] [address] [id number] [place] [address]- 1082 17 Oct, 2013 [facility] [place] [facility] [address] [id number] [address]- 6712 17 Oct, 2013 [facility] [place] [facility] [address] [id number] [place] [address]- 5961 11 Oct, 2013 [facility] [place] [facility] [address] [id number] [place] [address]- 6761 11 Oct, 2013 [facility] [place] [facility] [address] [id number] [place] [address]- 0622 27 Sep, 2013 [facility] [place] [facility] [address] [id number] [place] [address]- 7725 Sep, [facility] [place] [facility] [address] [id number] [place] [address]- 3145 Sep, [facility] [place] [facility] [address] [id number] [place] [address]- 2405 Sep, [facility] [place] [facility] [address] [id number] [place] [address]- 0998 18 Sep, 2013 [facility] [place] [facility] [address] [id number] [place] [address]- 6734 Sep, [facility] [place] [facility] [address] [id number] [place] [address]- 8513 14 Sep, 2013 [facility] [place] [facility] [address] [id number] [place] [address]- 1816 Sep, [facility] [place] [facility] [address] [id number] [place] [address]- 3356 Sep, [facility] [place] [facility] [address] [id number] [place] [address]- 9079 Sep, [facility] [place] [facility] [address] [id number] [place] [address]- 5833 Sep, [facility] [place] [facility] [address] [facility] [id number] [place] [address]- 9239 Sep, [facility] [place] [facility] [address] [id number] [place] [address]- 6049 Aug, [facility] [place] [facility] [address] [id number] [place] [address]- 7410 Aug, [facility] [place] [facility] [address] [id number] [place] [address]- 7136 Aug, [facility] [place] [facility] [address] [id number] [place] [address]- 5116 Aug, [facility] [place] [facility] [address] [id number] [place] [address]- 1718 Aug, [facility] [place] [facility] [address] [id number] [place] [address]- 4494 23 Aug, 2012 [facility] [place] [facility] [address] [id number] [place] [address]- 4055 Aug, 2012 [facility] [place] [facility] [address] [id number] [place] [address]- 4007 Aug, 2012 [facility] [place] [facility] [address] [id number] [place] [address]- 3741 16 Aug, 2012 [facility] [place] [facility] [address] [id number] [place] [address]- 4900 16 Aug, 2012 [facility] [place] [facility] [address] [id number] [place] [address]- 4925 Aug, 2012 [facility] [place] [facility] [address] [id number] [place] [address]- 2771 10 Aug, 2012 [facility] [place] [facility] [address] [id number] [place] [address]- 7361 08 Aug, 2013 [facility] [place] [facility] [address] [id number] [place] [address]- 9361 Aug, [facility] [place] [facility] [address] [id number] [place] [address]- 7387 04 Aug, 2013 [facility] [place] [facility] [address] [id number] [place] [address]- 0889 Aug, [facility] [place] [facility] [address] [id number] [place] [address]- 8290 Aug, [facility] [place] [facility] [address] [id number] [place] [address]- 3087 Jul, [facility] [place] [facility] [address] [id number] [place] [address]- 3196 Jun, [facility] [place] [facility] [address] [id number] [place] [address]- 8412 Jun, [facility] [place] [facility] [address] [id number] [place] [address]- 1988 May, [facility] [place] [facility] [address] [id number] [place] [address]- 6612 May, [facility] [place] [facility] [address] [id number] [place] [address]- 5629 Apr, [facility] [place] [facility] [address] [id number] [place] [address]- 0715 Apr, [facility] [place] [facility] [address] [id number] [place] [address]- 9396 Apr, [facility] [place] [facility] [address] [id number] [place] [address]- 9015 Apr, [facility] [place] [facility] [address] [id number] [place] [address]- 7729 Apr, [facility] [place] [facility] [address] [id number] [place] [address]- 1864 Apr, [facility] [place] [facility] [address] [id number] [place] [address]- 9605 Apr, [facility] [place] [facility] [address] [id number] [place] [address]- 1204 Apr, [facility] [place] [facility] [address] [id number] [place] [address]- 6874 Apr, [facility] [place] [facility] [address] [id number] [place] [address]- 7069 Apr, [facility] [place] [facility] [address] [id number] [place] [address]- 8151 Apr, [facility] [place] [facility] [address] [id number] [place] [address]- 1012 March, [facility] [place] [facility] [address] [id number] [place] [address]- 5826 March, [facility] [place] [facility] [address] [id number] [place] [address]- 1281 March, [facility] [place] [facility] [address] [id number] [place] [address]- 3976 March, [facility] [address] [id number] [place] [address]- 2146 March, [facility] [address] [id number] [place] [address]- 0632 Feb, [facility] [address] [id number] [place] [address]- 2997 Feb, [facility] [address] [id number] [place] [address]- 9823 Jan, [facility] [address] [id number] [place] [address]- 2871 Jan, [facility] [address] [id number] [place] [address]- 2215 Jan, [facility] [address] [id number] [place] [address]- 2054 Jan, [facility] [address] [id number] [place] [address]- 9234 Jan, [facility] [address] [id number] [place] [address]- 9749 Dec, [facility] [address] [id number] [place] [address]- 6760 Dec, [facility] [address] [id number] [place] [address]- 6248 Nov, [facility] [address] [id number] [place] [address]- 9423 Nov, [facility] [address] [id number] [place] [address]- 2542 Nov, [facility] [address] [id number] [place] [address]- 2546 16 Nov, 2012 [facility] [address] [id number] [place] 4107 Nov, [facility] [address] [id number] [place] [address]- 4940 14 Nov, 2012 [facility] [place] [facility] [address] [id number] [place] [address]- 8256 14 Nov, 2012 [facility] [place] [facility] [address] [id number] [place] [address]- 8352 Nov, [facility] [place] [facility] [address] [id number] [place] [address]- 2959 Nov, [facility] [place] [facility] [address] [id number] [place] [address]- 6951 Nov, [facility] [place] [facility] [address] [id number] [place] [address]- 2131 Nov, [facility] [place] [facility] [address] [id number] [place] [address]- 0965 Oct, [facility] [place] [facility] [address] [id number] [place] [address]- 7468 Oct, [facility] [place] [facility] [address] [id number] [place] [address]- 4023 Sep, [facility] [place] [facility] [address] [id number] [place] [address]- 9069 Sep, [facility] [place] [facility] [address] [id number] [place] [address]- 7551 Sep, [facility] [place] [facility] [address] [id number] [place] [address]- 2183 Sep, [facility] [place] [facility] [address] [id number] [place] [address]- 7932 Sep, [facility] [place] [facility] [address] [id number] [place] [address]- 7479 Sep, [facility] [place] [facility] [address] [id number] [place] [address]- 7551 Sep, [facility] [place] [facility] [address] [id number] [place] [address]- 9936 Sep, [facility] [place] [facility] [address] [id number] [place] [address]- 6364 Sep, [facility] [place] [facility] [address] [facility] [id number] [place] [address]- 6177 Sep, [facility] [place] [facility] [address] [facility] [id number] [place] [address]- 0916 Sep, [facility] [place] [facility] [address] [facility] [id number] [place] [address]- 5117 Sep, [facility] [place] [facility] [address] [facility] [id number] [place] [address], [place] [address]- 1192 Sep, [facility] [place] [facility] [address] [facility] [id number] [place] [address]- 4518 Sep, [facility] [place] [facility] [id number] [place] [address]- 3757 Aug, [facility] [place] [facility] [address] [facility] [id number] [place] [address]- 0356 Aug, [facility] [place] [facility] [address] [id number] [place] [address]- 9671 Aug, [facility] [place] [facility] [address] [id number] [place] [address]- 0195 Aug, [facility] [place] [facility] [address] [facility] [id number] [place] [address]- 1155 Aug, [facility] [place] [facility] [address] [facility] [id number] [place] [address]- 7928 Aug, [facility] [place] [facility] [address] [facility] [id number] [place] [address]- 9923 Aug, [facility] [place] [facility] [address] [facility] [id number] [place] [address]- 6694 Aug, [facility] [place] [facility] [address] [id number] [place] [address]- 8764 Aug, [facility] [place] [facility] [id number] [address]- 3423 Aug, [facility] [id number] [address]- 4338 Aug, [facility] [address] [facility] [id number] [place] [address]- 4205 Aug, [facility] [id number] [address]- 1057 Aug, [facility] [address] [facility] [id number] [place] [address]- 9577 Aug, [facility] [id number] [place] [address] 15[address]- 3216 Aug, [facility] [id number] [address]- 5793 Aug, [facility] [id number] [address]- 5515 Aug, [facility] [id number] [address]- 3433 Jul, [facility] [id number] [address]- 2523 Jun, [facility] [id number] [address]- 2962 Aug, [facility] [id number] [address]- 4314 Aug, [facility] [id number] [address]- 5117 Aug, IMMUNIZATIONS No Known Immunizations SOCIAL HISTORY Never Assessed REASON FOR VISIT FYI PLAN OF CARE VITAL SIGNS MEDICATIONS Medication Instructions Dosage Frequency Start Date End Date Duration Status Incontinence Supplies - Depends brief-size requested by patient Apr Active RESULTS No Results PROCEDURES No Known [...]
--- OUTSIDE RECORDS SUMMARY | 2018-05-03 19:53 | XMS REPORT ---
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 Role Phone MADDIEArjun PIPPA Unavailable PROBLEMS Type Condition ICD9-CM Code DZO45-ZW Code Onset Dates Condition Status SNOMED Code Problem Mixed hyperlipidemia E78.2 Active 102312430 Problem Stasis dermatitis without varicosities I87.2 Active 49406301 Problem Edema of both legs R60.0 Active 814681919 Problem Morbid (severe) obesity due to excess calories E66.01 Active 284336280 Problem Chronic pain syndrome G89.4 Active 887633176 Problem Dependence on supplemental oxygen Z99.81 Active 165326699421 Problem 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 Active 93234621 Problem Gastroesophageal reflux disease without esophagitis K21.9 Active 402026105 Problem Urge incontinence of urine N39.41 Active 19830123 Problem Restless legs syndrome G25.81 Active 251348437 Problem Essential hypertension I10 Active 06409270 Problem Chronic stasis dermatitis I83.10 Active 83177591 Problem Renal insufficiency N28.9 Active 873831341 Problem Acquired hypothyroidism E03.9 Active 169636444 Problem Lymphedema I89.0 Active 949313337 Problem Lumbar pain M54.5 Active 624950299 Problem Nocturnal hypoxia G47.34 Active 671850391 ALLERGIES No Information ENCOUNTERS Encounter Location Date Diagnosis [facility] [address] [facility] [id number] [address] March, [facility] [address] [address] 9045 Feb, [facility] [address] [id number] [address] 3189 Jan, [facility] [id number] [place] [address] 08469- 0966 28 Jan, 2018 [facility] [id number] [place] [address] 93934- 9861 Jan, Acquired hypothyroidism E03.9 ; Morbid (severe) obesity due to excess calories E66.01 ; Body mass index (BMI) 70 or greater, adult Z68.45 ; Cellulitis of left anterior lower leg L03.116 ; Restless legs syndrome G25.81 ; Nocturnal hypoxia G47.34 and Dependence on supplemental oxygen Z99.81 [facility] [id number] [place] [address] 27320- 5789 Jan, [facility] [id number] [place] [address] 85868- 5812 12 Dec, 2017 [facility] [id number] [place] [address] 45608- 0119 Oct, [facility] [id number] [place] [address] 83375- 4757 07 Oct, 2017 [facility] [id number] [place] [address] 85074- 9889 Sep, [facility] [id number] [place] [address] 42274- 0646 16 Sep, 2017 [facility] [id number] [place] [address] 71755- 1400 16 Sep, 2017 Dental examination Z01.20 [facility] [id number] [place] [address] 52146- 6656 Sep, Morbid obesity due to excess calories E66.01 ; Body mass index (BMI) of 70 or greater in adult Z68.45 ; Stasis dermatitis without varicosities I87.2 ; Lymphedema I89.0 ; Renal insufficiency N28.9 ; Acquired hypothyroidism E03.9 ; Cellulitis L03.90 ; Bronchitis J40 and BMI 40.0-44.9, adult Z68.41 [facility] [id number] [place] [address] 63175- 9247 Aug, [facility] [address] [facility] [id number] [id number] Aug, Dental examination Z01.20 [facility] [id number] [place] [address] 41143- 4096 Aug, [facility] [address] [address]- 0418 26 Jul, 2017 [facility] [id number] [place] [address] 54139- 8908 Jul, [facility] [address] [facility] [id number] [place] [address] 25059- 9366 18 Jul, 2017 [facility] [address] [place] [address] 41606- 3125 14 Jul, 2017 [facility] [id number] [place] [address] 55876- 2417 Jul, [facility] [id number] [place] [address] 27099- 9585 Jun, [facility] [id number] [place] [address] 90645- 5759 Jun, Dependence on nocturnal oxygen therapy Z99.81 ; Morbid obesity due to excess calories E66.01 and Bronchitis J40 [facility] [address] [address]- 3223 Jun, Restless legs syndrome G25.81 [facility] [address] [address]- 4571 Jun, [facility] [address] [place] [address] 87680- 6524 May, [facility] [place] [id number] [place] [address] [id number] Apr, [facility] [address] [address] 9127 Apr, [facility] [address] [place] [address] 57427- 2301 Apr, Essential hypertension I10 [facility] [address] [place] [address] 83096- 4987 Apr, [place] [id number] [place] [address] 12589- 6426 Apr, Chronic pain syndrome G89.4 and Urge incontinence of urine N39.41 [place] [id number] [place] [address] 64722- 9400 March, Acquired hypothyroidism E03.9 [facility] [id number] [place] [address] 47600- 8958 March, [facility] [id number] [place] [address] 50469- 1596 March, [facility] [place] [id number] [place] [address] 68228- 0744 March, Chronic pain syndrome G89.4 ; Essential [...] extremity L03.116 and Screening breast examination Z12.39 [facility] [facility] [address] [place] [address] 02839- 9943 March, [facility] [id number] [place] [address] 62787- 3985 Feb, [place] [id number] [place] [address] 27934- 1856 Feb, [place] [id number] [place] [address] 99107- 5165 Feb, Chronic pain syndrome G89.4 [facility] [address] [place] [address] 63357 -9833 Feb, Right foot pain M79.671 and Right foot sprain, initial encounter S93.601A [facility] [address] [address]- 4793 Jan, [facility] [id number] [place] [address] 31674- 4140 Jan, [facility] [id number] [place] [address] 52170- 9118 Jan, Chronic pain syndrome G89.4 [facility] [id number] [place] [address] 29914- 9523 Jan, [place] [id number] [place] [address] 51894- 7365 Dec, [place] [id number] [place] [address] 09274- 4013 Dec, [facility] [place] [id number] [place] [address] 39306- 5658 Dec, Pain in right knee M25.561 ; Pain in left knee M25.562 ; Essential hypertension I10 ; Chronic stasis dermatitis I83.10 ; Restless legs syndrome G25.81 ; Acquired hypothyroidism E03.9 ; Dependence on nocturnal oxygen therapy Z99.81 ; Mixed hyperlipidemia E78.2 ; Lymphedema I89.0 ; Chronic pain syndrome G89.4 ; Gastroesophageal reflux disease without esophagitis K21.9 and Urge incontinence of urine N39.41 [place] [address] [address]- 0459 Nov, Mixed hyperlipidemia E78.2 [facility] [address] [address]- 7452 Nov, [place] [id number] [place] [address] 18495- 6350 Nov, [facility] [address] [address]- 6425 Nov, [facility] [id number] [address]4609 Nov, Stasis ulcer, left I83.029 [facility] [address] [address]- 4711 Nov, [facility] [address] [address]- 3700 Oct, [facility] [address] [address]- 7312 Oct, [facility] [address] [address]- 5329 Oct, [facility] [address] [address]- 3195 Sep, [facility] [address] [address]- 4313 Sep, [address] [id number] Sep, [facility] [address] [address]- 5412 Aug, [facility] [address] [address]- 9964 Jul, [facility] [address] [address]- 2442 Jul, [facility] [address] [address]- 8960 Jul, [facility] [address] [address]- 1769 Jul, [facility] [address] [address]- 1447 Jul, Chest pain, unspecified type R07.9 ; Dyspnea on exertion R06.09 ; Essential hypertension I10 ; Hyperlipidemia, unspecified hyperlipidemia type E78.5 ; Left bundle branch block I44.7 and Hypothyroidism, unspecified type E03.9 [facility] [id number] [place] [address] 63338 -8357 Jun, Fever, unspecified fever cause R50.9 ; Headache, unspecified headache type R51 ; SOB (shortness of breath) R06.02 and Strep pharyngitis J02.0 [facility] [id number] [place] [address] 61780- 1381 Jun, [facility] [address] 73813- 2585 Jun, [facility] [address] 05903- 7235 Jun, Essential hypertension I10 ; Mixed hyperlipidemia E78.2 and Acquired hypothyroidism E03.9 [facility] [id number] [place] [address] 61092- 6427 Jun, Edema of both legs R60.0 ; Hypoxia R09.02 and Essential hypertension I10 [facility] [address] 09810- 3905 Jun, [place] [address] 97071- 8260 Jun, Edema of both legs R60.0 ; Hypoxia R09.02 and Essential hypertension I10 [facility] [id number] [place] [address] 43412- 6196 Jun, Essential hypertension I10 ; Dependence on supplemental oxygen Z99.81 and Edema of both legs R60.0 [place] [id number] [place] [address] 03705- 8624 May, Lumbar pain M54.5 ; Essential hypertension I10 ; Edema of both legs R60.0 ; Stasis dermatitis without varicosities I87.2 and Left knee pain M25.562 [facility] [id number] [place] [address] 08934- 6471 May, [facility] [address] 87022- 1563 May, [facility] [address] [address]- 8110 May, [facility] [id number] [place] [address] 47137- 9392 Apr, [facility] [address] [place] [address] 08615- 4793 Apr, [facility] [id number] [place] [address] 13144- 3285 March, [facility] [id number] [place] [address] 49819- 8732 March, Lymphedema I89.0 ; Morbid obesity due to excess calories E66.01 ; Alteration in mobility due to weakness R53.1 and Hypoxia R09.02 [place] [id number] [place] [address] 32481- 2861 March, Abdominal wall mass R19.00 [place] [id number] [place] [address] 29151- 3267 March, [facility] [id number] [place] [address] 68421- 5147 March, Abdominal wall mass R19.00 ; Lower abdominal pain R10.30 ; Alteration in mobility due to weakness R53.1 ; Hypoxia R09.02 and Lymphedema I89.0 [place] [address] [address]- 5908 Feb, [facility] [address] [place] [address] 01569- 5335 Feb, Acquired hypothyroidism E03.9 ; Dependence on machine for supplemental oxygen V46.2 ; Restless legs syndrome G25.81 ; Essential hypertension I10 ; Renal insufficiency N28.9 ; Chronic stasis dermatitis I83.10 ; Mixed hyperlipidemia E78.2 ; Other chronic pain 338.29 and Cellulitis of left lower extremity L03.116 [place] [id number] [place] [address] 48520- 1884 Feb, [facility] [id number] [place] [address] 75870- 5943 Feb, [facility] [address] 33647 -0742 Feb, Shortness of breath R06.02 and Bronchitis J40 [place] [address] 87357- 2236 Jan, Dependence on supplemental oxygen Z99.81 [place] [address] 21669- 5523 Jan, [place] [address] 34499- 0338 Dec, [place] [address] 58922- 8205 Dec, [place] [address] 08928- 9003 Nov, Osteoarthritis of knees, bilateral M17.0 [place] [address] 57730- 3849 Nov, Dependence on machine for supplemental oxygen V46.2 ; Nocturnal hypoxia G47.34 and Urgency of urination R39.15 [place] [address] 26771- 7609 Nov, [place] [address] 59038- 5894 Oct, Pain in right knee M25.561 and Pain in left knee M25.562 [place] [address] 96814- 0511 Oct, Acquired hypothyroidism E03.9 ; Renal insufficiency N28.9 and Chronic stasis dermatitis I83.10 [place] [address] 69942- 6885 Oct, [place] [id number] [place] [address] 85699- 8535 Sep, Cellulitis L03.90 ; Left knee pain M25.562 ; Essential hypertension I10 ; Lymphedema I89.0 ; Lumbar pain M54.5 ; Morbid obesity due to excess calories E66.01 and Renal insufficiency N28.9 [facility] [id number] [place] [address] 13206- 9162 Sep, Cellulitis L03.90 and Lymphedema I89.0 [place] [id number] [place] [address] 53820- 8024 Sep, [place] [address] 13804- 9983 Sep, [place] [id number] [place] [address] 93855- 0962 Sep, Left knee pain M25.562 ; Lumbar pain M54.5 ; Restless legs syndrome G25.81 ; Acquired hypothyroidism E03.9 and Essential hypertension I10 [place] [id number] [place] [address] 35352- 5313 Jul, [place] [id number] [place] [address] 34310- 1847 Jun, [facility] [id number] [place] [address] 08002- 6040 May, [place] [id number] [place] [address] 32595- 0807 May, [facility] [id number] [place] [address] 30023- 7964 May, Hypertension 997.91 ; Restless legs syndrome [RLS] 333.94 ; Unspecified venous (peripheral) insufficiency 459.81 ; Unspecified hypothyroidism 244.9 and Other chronic pain 338.29 [facility] [id number] [place] [address] 31102- 7409 Apr, [facility] [id number] [address]- 1303 Apr, [facility] [address] [place] [address] 69981- 7788 Apr, Restless legs syndrome [RLS] 333.94 ; Shortness of breath 786.05 ; Unspecified venous (peripheral) insufficiency 459.81 ; Unspecified hypothyroidism 244.9 ; Obesity, unspecified 278.00 ; Other chronic pain 338.29 ; Hypertension 997.91 and Hyperlipidemia 272.4 [facility] [id number] [address]- 8725 Feb, [facility] [id number] [place] [address] 40540- 4195 Feb, [facility] [id number] [place] [address] 97578- 6289 Jan, [facility] [id number] [place] [address] 083571- 3409 Jan, [facility] [id number] [address]- 7128 Jan, [facility] [id number] [place] [address] 92571- 9340 Jan, [facility] [address] [address]- 0511 Jan, [facility] [address] [address]- 0305 Jan, [facility] [address] [address]- 1947 Jan, [facility] [id number] [place] [address] 13207- 0329 Jan, [facility] [address]- 8266 Jan, [facility] [address] 8351 Jan, [facility] [place] [facility] [address] [id number] [place] [address]- 2731 Jan, [facility] [place] [facility] [address] [id number] [place] [address]- 6573 Jan, [facility] [place] [facility] [address] [id number] [place] [address]- 4145 Jan, [facility] [place] [facility] [address] [id number] [place] [address]- 5476 Jan, [facility] [place] [facility] [address] [id number] [place] [address]- 3599 Dec, [facility] [place] [facility] [address] [id number] [place] [address]- 0320 Dec, [facility] [place] [facility] [address] [id number] [place] [address]- 2670 Nov, [facility] [place] [facility] [address] [id number] [place] [address]- 9977 Nov, [facility] [place] [facility] [address] [id number] [place] [address]- 9706 Nov, [facility] [place] [facility] [address] [id number] [place] [address]- 5438 Nov, [facility] [place] [facility] [address] [id number] [place] [address]- 3508 Nov, [facility] [place] [facility] [address] [id number] [place] [address]- 1679 Nov, [facility] [place] [facility] [address] [id number] [place] [address]- 6640 Nov, [facility] [place] [facility] [address] [id number] [place] [address]- 3618 Nov, [facility] [place] [facility] [address] [id number] [place] [address]- 9728 Nov, [facility] [place] [facility] [address] [id number] [place] [address]- 4098 14 Nov, 2014 [facility] [place] [facility] [address] [id number] [place] [address]- 3290 14 Nov, 2014 [facility] [place] [facility] [address] [id number] [place] [address]- 5711 Nov, [facility] [place] [facility] [address] [facility] [id number] [place] [address]- 2881 Nov, [facility] [place] [facility] [address] [id number] [place] [address]- 4530 Nov, [facility] [place] [facility] [id number] [place] [address], [place] [address]- 9843 Nov, [facility] [place] [facility] [address] [id number] [place] [address]- 5017 Nov, [facility] [place] [facility] [address] [facility] [id number] [address]- 8372 Oct, [facility] [place] [facility] [address] [id number] [place] [address]- 3833 Oct, [facility] [place] [facility] [address] [facility] [id number] [place] [address]- 9783 Sep, [facility] [place] [facility] [address] [facility] [id number] [address]- 6957 Aug, [facility] [place] [facility] [address] [id number] [place] [address]- 0138 Aug, [facility] [place] [facility] [address] [id number] [address]- 5797 Aug, [facility] [place] [facility] [address] [id number] [place] [address]- 4306 Aug, [facility] [place] [facility] [address] [facility] [id number] [place] [address]- 8936 Aug, [facility] [place] [facility] [address] [facility] [id number] [place] [address]- 5677 Aug, [facility] [place] [facility] [address] [id number] [place] [address]- 5093 Aug, [facility] [place] [facility] [address] [id number] [place] [address]- 6175 Aug, [facility] [place] [facility] [address] [id number] [place] [address]- 6133 Aug, [facility] [place] [facility] [address] [id number] [place] [address]- 3929 Aug, [facility] [place] [facility] [address] [id number] [place] [address]- 0222 Jun, [facility] [place] [facility] [address] [id number] [place] [address]- 4837 Jun, [facility] [place] [facility] [address] [id number] [place] [address]- 1724 Jun, [facility] [place] [facility] [address] [id number] [place] [address]- 0174 Jun, [facility] [place] [facility] [address] [id number] [place] [address]- 3884 Jun, [facility] [place] [facility] [address] [id number] [place] [address]- 8040 Jun, [facility] [place] [facility] [address] [id number] [place] [address] Jun, [facility] [place] [facility] [address] [id number] [place] [address] Jun, [facility] [place] [facility] [address] [id number] [place] [address] Jun, [facility] [place] [facility] [address] [id number] [place] [address] Jun, [facility] [place] [facility] [address] [id number] [place] [address] May, [facility] [place] [facility] [address] [id number] [place] [address] May, [facility] [place] [facility] [address] [id number] [place] [address] May, [facility] [place] [facility] [address] [id number] [place] [address] May, [facility] [place] [facility] [address] [id number] [place] [address] May, [facility] [place] [facility] [address] [id number] [place] [address] May, [facility] [place] [facility] [address] [id number] [place] [address] May, [facility] [place] [facility] [address] [id number] [place] [address] May, [facility] [place] [facility] [address] [id number] [place] [address] May, 2013 [facility] [place] [facility] [address] [id number] [place] [address] May, 2013 [facility] [place] [facility] [address] [id number] [place] [address] May, [facility] [place] [facility] [address] [id number] [place] [address] May, 2013 [facility] [place] [facility] [address] [id number] [place] [address] May, [facility] [place] [facility] [address] [id number] [place] [address] May, 2013 [facility] [place] [facility] [address] [id number] [place] [address] May, [facility] [place] [facility] [address] [id number] [place] [address] May, [facility] [place] [facility] [address] [id number] [place] [address] May, 2013 [facility] [place] [facility] [address] [id number] [place] [address] May, [facility] [place] [facility] [address] [id number] [place] [address] Apr, [facility] [place] [facility] [address] [id number] [place] [address] Apr, [facility] [place] [facility] [address] [id number] [place] [address] Apr, [facility] [place] [facility] [address] [id number] [place] [address] Apr, [facility] [place] [facility] [address] [id number] [place] [address] Apr, [facility] [place] [facility] [address] [id number] [place] [address] Apr, [facility] [place] [facility] [address] [id number] [place] [address] 2160 Apr, [facility] [place] [facility] [address] [id number] [place] [address] 5231 Apr, [facility] [place] [facility] [address] [id number] [place] [address] 4[address] Apr, [facility] [place] [facility] [address] [id number] [place] [address] 6[address] Apr, [facility] [place] [facility] [address] [id number] [place] [address] 1519 Apr, [facility] [place] [facility] [address] [id number] [place] [address]- 8773 Apr, [facility] [place] [facility] [address] [id number] [place] [address] 3916 March, [facility] [place] [facility] [address] [id number] [place] [address] 8043 March, [facility] [place] [facility] [address] [id number] [place] [address] 1362 March, [facility] [place] [facility] [address] [id number] [place] [address] 1695 March, [facility] [place] [facility] [address] [id number] [place] [address] March, [facility] [place] [facility] [address] [id number] [place] [address] 5341 March, [facility] [place] [facility] [address] [id number] [place] [address] 1255 March, [facility] [place] [facility] [address] [id number] [place] [address] 9357 March, [facility] [place] [facility] [address] [id number] [place] [address] 3061 March, [facility] [place] [facility] [address] [id number] [place] [address] 8834 March, [facility] [place] [facility] [address] [id number] [place] [address] 1830 March, [facility] [place] [facility] [address] [id number] [place] [address] 2288 Feb, [facility] [place] [facility] [address] [id number] [place] [address] 5770 Feb, [facility] [place] [facility] [address] [id number] [place] [address] 3463 Feb, [facility] [place] [facility] [address] [id number] [place] [address] 7213 Feb, [facility] [place] [facility] [address] [id number] [place] [address]- 4496 Feb, [facility] [place] [facility] [address] [id number] [place] [address]- 9398 Feb, [facility] [place] [facility] [address] [id number] [place] [address]- 5546 Feb, [facility] [place] [facility] [address] [id number] [place] [address]- 6381 Feb, [facility] [place] [facility] [address] [id number] [place] [address]- 8016 Feb, [facility] [place] [facility] [address] [id number] [place] [address]- 8091 Feb, [facility] [place] [facility] [address] [id number] [place] [address] 1959 Feb, [facility] [place] [facility] [address] [id number] [place] [address]- 4293 Feb, [facility] [place] [facility] [address] [id number] [place] [address]- 2714 Feb, [facility] [place] [facility] [address] [id number] [place] [address]- 0237 Feb, [facility] [place] [facility] [address] [id number] [place] [address]- 4371 Feb, [facility] [place] [facility] [address] [id number] [place] [address]- 5263 Feb, [facility] [place] [facility] [address] [id number] [place] [address]- 5945 Feb, [facility] [place] [facility] [address] [id number] [place] [address]- 1315 Feb, [facility] [place] [facility] [address] [id number] [place] [address] 1897 Feb, [facility] [place] [facility] [address] [id number] [place] [address]- 8435 Feb, [facility] [place] [facility] [address] [id number] [place] [address]- 0699 Jan, [facility] [place] [facility] [address] [id number] [place] [address]- 2032 Jan, [facility] [place] [facility] [address] [id number] [place] [address]- 6825 Jan, [facility] [place] [facility] [address] [id number] [place] [address]- 7210 25 Jan, 2014 [facility] [place] [facility] [address] [id number] [place] [address]- 0375 24 Jan, 2014 [facility] [place] [facility] [address] [id number] [place] [address] 24 Jan, 2014 [facility] [place] [facility] [address] [id number] [place] [address]- 5776 18 Jan, 2014 [facility] [place] [facility] [address] [id number] [place] [address]- 5826 18 Jan, 2014 [facility] [place] [facility] [address] [id number] [place] [address]- 8390 14 Jan, 2014 [facility] [place] [facility] [address] [id number] [place] [address]- 4231 14 Jan, 2014 [facility] [place] [facility] [address] [id number] [place] [address]- 6778 Jan, [facility] [place] [facility] [address] [id number] [place] [address]- 0472 Jan, [facility] [place] [facility] [address] [id number] [place] [address]- 9245 05 Jan, 2014 [facility] [place] [facility] [address] [id number] [place] [address]- 8398 Jan, [facility] [place] [facility] [address] [id number] [place] [address]- 0984 Dec, [facility] [place] [facility] [address] [id number] [place] [address]- 3943 Dec, [facility] [place] [facility] [address] [id number] [place] [address]- 8890 Dec, [facility] [place] [facility] [address] [id number] [place] [address]- 8826 Dec, [facility] [place] [facility] [address] [id number] [place] [address]- 6806 Dec, [facility] [address] [id number] [place] [address]- 4666 Dec, [facility] [place] [facility] [address] [id number] [place] [address]- 6821 Dec, [facility] [place] [facility] [address] [id number] [place] [address]- 7102 Dec, [facility] [place] [facility] [address] [id number] [place] [address]- 3628 Dec, [facility] [place] [facility] [address] [id number] [place] [address]- 2944 Nov, [facility] [place] [facility] [address] [id number] [place] [address]- 7482 Nov, [facility] [place] [facility] [address] [id number] [place] [address]- 4377 Nov, [facility] [place] [facility] [address] [id number] [place] [address]- 4277 Nov, [facility] [place] [facility] [address] [id number] [place] [address]- 5327 Oct, [facility] [place] [facility] [address] [id number] [place] [address]- 4174 Oct, [facility] [place] [facility] [address] [id number] [place] [address]- 9829 Oct, [facility] [place] [facility] [address] [id number] [place] [address]- 9678 Oct, [facility] [place] [facility] [address] [id number] [place] [address]- 2581 Oct, [facility] [place] [facility] [address] [id number] [place] [address]- 2562 Oct, [facility] [place] [facility] [address] [id number] [place] [address]- 1314 Oct, [facility] [place] [facility] [address] [id number] [place] [address]- 3261 23 Oct, 2012 [facility] [address] [id number] [place] [address]- 2916 20 Oct, 2013 [facility] [address] [id number] [place] 19 Oct, 2013 [facility] [address] [id number] [place] [address]- 8446 19 Oct, 2013 [facility] [address] [id number] [place] [address]- 8924 18 Oct, 2013 [facility] [address] [id number] [place]46 18 Oct, 2013 [facility] [address] [id number] [place] [address]- 0206 17 Oct, 2013 [facility] [address] [id number] [place] [address]- 3416 17 Oct, 2013 [facility] [address] [id number] [place] [address]- 8667 17 Oct, 2013 [facility] [address] [id number] [place] [address]- 4995 17 Oct, 2013 [facility] [address] [id number] [place] [address]- 2535 17 Oct, 2013 [facility] [address] [id number] [place] [address]- 4353 17 Oct, 2013 [facility] [address] [id number] [place] [address]- 6713 11 Oct, 2013 [facility] [address] [id number] [place] [address]- 8523 11 Oct, 2013 [facility] [address] [id number] [place] [address]- 1164 27 Sep, 2013 [facility] [address] [id number] [place] [address]- 4293 Sep, [facility] [place] [facility] [address] [id number] [place] [address]- 5943 Sep, [facility] [place] [facility] [address] [id number] [place] [address]- 8233 Sep, [facility] [place] [facility] [address] [id number] [place] [address]- 4957 18 Sep, 2013 [facility] [place] [facility] [address] [id number] [place] [address]- 1718 Sep, [facility] [place] [facility] [address] [id number] [place] [address]- 6502 Sep, [facility] [place] [facility] [address] [id number] [place] [address]- 0060 Sep, [facility] [place] [facility] [address] [id number] [place] [address]- 2527 Sep, [facility] [place] [facility] [address] [id number] [place] [address]- 3237 Sep, [facility] [place] [facility] [address] [id number] [place] [address]- 4525 Sep, [facility] [place] [facility] [address] [id number] [place] [address]- 4365 Sep, [facility] [place] [facility] [address] [id number] [place] [address]- 6915 Aug, [facility] [place] [facility] [address] [id number] [place] [address]- 7334 Aug, [facility] [place] [facility] [address] [id number] [place] [address]- 8038 Aug, [facility] [place] [facility] [address] [id number] [place] [address]- 8415 Aug, [facility] [place] [facility] [address] [id number] [place] [address]- 6623 Aug, [facility] [place] [facility] [address] [id number] [place] [address]- 9637 Aug, 2012 [facility] [place] [facility] [address] [id number] [place] [address]- 6550 Aug, 2012 [facility] [place] [facility] [address] [id number] [place] [address]- 0607 Aug, 2012 [facility] [place] [facility] [address] [id number] [place] [address]- 0123 16 Aug, 2012 [facility] [place] [facility] [address] [id number] [place] [address]- 9411 16 Aug, 2012 [facility] [place] [facility] [address] [id number] [place] [address]- 4082 10 Aug, 2012 [facility] [place] [facility] [address] [id number] [place] [address]- 6053 10 Aug, 2012 [facility] [place] [facility] [address] [id number] [place] [address]- 4954 08 Aug, 2012 [facility] [place] [facility] [address] [id number] [place] [address]- 6455 07 Aug, 2013 [facility] [place] [facility] [address] [id number] [place] [address]- 1578 04 Aug, 2013 [facility] [place] [facility] [address] [id number] [place] [address]- 8889 Aug, [facility] [place] [facility] [address] [id number] [place] [address]- 5360 Aug, [facility] [place] [facility] [address] [id number] [place] [address]- 5031 Jul, [facility] [place] [facility] [address] [id number] [place] [address]- 1751 Jun, [facility] [place] [facility] [address] [id number] [place] [address]- 7881 Jun, [facility] [place] [facility] [address] [id number] [place] [address]- 5087 May, [facility] [place] [facility] [address] [id number] [place] [address]- 0690 May, [facility] [place] [facility] [address] [id number] [place] [address]- 4364 Apr, [facility] [place] [facility] [address] [id number] [place] [address]- 6505 Apr, [facility] [place] [facility] [address] [id number] [place] [address]- 0097 Apr, [facility] [place] [facility] [address] [id number] [place] [address]- 5631 Apr, [facility] [place] [facility] [address] [id number] [place] [address]- 5400 Apr, [facility] [place] [facility] [address] [id number] [place] [address]- 0178 Apr, [facility] [place] [facility] [address] [id number] [place] [address]- 9277 07 Apr, 2013 [facility] [place] [facility] [address] [id number] [place] [address]- 2808 07 Apr, 2013 [facility] [place] [facility] [address] [id number] [place] [address]- 6243 Apr, [facility] [place] [facility] [address] [id number] [place] [address]- 3373 Apr, [facility] [place] [facility] [address] [id number] [place] [address]- 5001 Apr, [facility] [place] [facility] [address] [id number] [place] [address]- 2705 March, [facility] [place] [facility] [address] [id number] [place] [address]- 0687 March, [facility] [place] [facility] [address] [id number] [place] [address]- 4834 March, [facility] [place] [facility] [address] [id number] [place] [address]- 2670 March, [facility] [address] [id number] [place] [address]- 8115 March, [facility] [address] [id number] [place] [address]- 7396 Feb, [facility] [address] [id number] [place] [address]- 6234 Feb, [facility] [address] [id number] [place] [address]- 4712 Jan, [facility] [address] [id number] [place] [address]- 4799 Jan, [facility] [address] [id number] [place] [address]- 4177 Jan, [facility] [address] [id number] [place] [address]- 6056 Jan, [facility] [address] [id number] [place] [address]- 2039 Jan, [facility] [address] [id number] [place] [address]- 2491 Dec, [facility] [place] [facility] [address] [id number] [place] [address]- 0126 Dec, [facility] [address] [id number] [place] [address]- 6022 Nov, [facility] [place] [facility] [address] [id number] [place] [address]- 6718 Nov, [facility] [place] [facility] [address] [id number] [place] [address]- 7726 Nov, [facility] [place] [facility] [address] [id number] [place] [address]- 4116 Nov, [facility] [place] [facility] [address] [id number] [place] [address]- 4896 Nov, [facility] [place] [facility] [address] [id number] [place] [address]- 2204 14 Nov, 2012 [facility] [address] [id number] [place] [address]- 4300 14 Nov, 2012 [facility] [address] [id number] [place] [address]- 1342 11 Nov, 2012 [facility] [address] [id number] [place] [address]- 4676 Nov, [facility] [address] [id number] [place] [address]- 3830 Nov, [facility] [address] [id number] [place] [address]- 9716 Nov, [facility] [address] [id number] [place] [address]- 6882 Oct, [facility] [address] [id number] [place] [address]- 3085 Oct, [facility] [address] [id number] [place] [address]- 0351 Sep, [facility] [address] [id number] [place] [address]- 3924 Sep, [facility] [address] [id number] [place] [address]- 7409 Sep, [facility] [address] [id number] [place] [address]- 6755 Sep, [facility] [address] [id number] [place] [address]- 8686 Sep, [facility] [address] [id number] [place] [address]- 0066 Sep, [facility] [address] [id number] [place] [address]- 6532 Sep, [facility] [address] [id number] [place] [address]- 0116 Sep, [facility] [place] [facility] [address] [id number] [place] [address]- 4597 Sep, [facility] [place] [facility] [address] [id number] [place] [address]- 3736 Sep, [facility] [place] [facility] [address] [id number] [place] [address]- 1524 Sep, [facility] [place] [facility] [address] [id number] [place] [address]- 4701 Sep, [facility] [place] [facility] [address] [id number] [place] [address]- 1568 Sep, [facility] [place] [facility] [address] [id number] [place] [address]- 6915 Sep, [facility] [place] [facility] [address] [facility] [id number] [place] [address]- 1282 Aug, [facility] [place] [facility] [address] [id number] [place] [address]- 0040 Aug, [facility] [place] [facility] [address] [facility] [id number] [place] [address]- 8120 Aug, [facility] [place] [facility] [address] [facility] [id number] [place] [address]- 9996 Aug, [facility] [place] [facility] [address] [facility] [id number] [place] [address]- 9838 Aug, [facility] [place] [facility] [address] [id number] [place] [address]- 6532 Aug, [facility] [place] [facility] [address] [facility] [id number] [place] [address]- 4733 Aug, [facility] [place] [facility] [address] [facility] [id number] [place] [address]- 1939 Aug, [facility] [place] [facility] [address] [facility] [id number] [place] [address]- 7971 Aug, [facility] [place] [facility] [address] [id number] [place] [address]- 2265 Aug, [facility] [id number] [address]- 0933 Aug, [facility] [id number] [address]- 7476 Aug, [facility] [id number] [address]- 5752 Aug, [facility] [id number] [address]- 8933 Aug, [facility] [id number] [place] [address]- 3303 Aug, [facility] [id number] [place] [address] 614[address]- 6666 Aug, [facility] [id number] [address]- 3581 Aug, [facility] [id number] [address]- 6695 Jul, [facility] [id number] [address]- 5394 Jun, [facility] [id number] [address]- 5981 Aug, [facility] [id number] [address]- 5798 Aug, [facility] [id number] [address]- 0540 Aug, IMMUNIZATIONS No Known Immunizations SOCIAL HISTORY Never Assessed REASON FOR VISIT Request notes PLAN OF CARE VITAL SIGNS MEDICATIONS Unknown [...]
--- OUTSIDE RECORDS SUMMARY | 2018-05-03 19:54 | XMS REPORT ---
Author Author PIPPA DIMAS [facility] Address [address] [place] [address] Care Team Providers Care Irrigationist Name Role Phone MADDIEArjun PIPPA Unavailable PROBLEMS Type Condition ICD9-CM Code ULK81-LH Code Onset Dates Condition Status SNOMED Code Problem Mixed hyperlipidemia E78.2 Active 218000020 Problem Stasis dermatitis without varicosities I87.2 Active 73726222 Problem Edema of both legs R60.0 Active 332684098 Problem Morbid (severe) obesity due to excess calories E66.01 Active 227036182 Problem Chronic pain syndrome G89.4 Active 750046538 Problem Dependence on supplemental oxygen Z99.81 Active 383257180686 Problem 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 Active 43791560 Problem Gastroesophageal reflux disease without esophagitis K21.9 Active 469940534 Problem Urge incontinence of urine N39.41 Active 09029262 Problem Restless legs syndrome G25.81 Active 192171335 Problem Essential hypertension I10 Active 48136674 Problem Chronic stasis dermatitis I83.10 Active 35213520 Problem Renal insufficiency N28.9 Active 864581640 Problem Acquired hypothyroidism E03.9 Active 697123051 Problem Lymphedema I89.0 Active 469701013 Problem Lumbar pain M54.5 Active 479376442 Problem Nocturnal hypoxia G47.34 Active 892642685 ALLERGIES No Information ENCOUNTERS Encounter Location Date Diagnosis [facility] [address] [facility] [id number] [address] Apr, [facility] [address] [address] 0161 Feb, [facility] [address] [id number] [address] 8961 Jan, [facility] [id number] [place] [address] 19388- 8428 28 Jan, 2018 [facility] [id number] [place] [address] 24865- 7892 Jan, Acquired hypothyroidism E03.9 ; Morbid (severe) obesity due to excess calories E66.01 ; Body mass index (BMI) 70 or greater, adult Z68.45 ; Cellulitis of left anterior lower leg L03.116 ; Restless legs syndrome G25.81 ; Nocturnal hypoxia G47.34 and Dependence on supplemental oxygen Z99.81 [facility] [id number] [place] [address] 27629- 5455 Jan, [facility] [id number] [place] [address] 08224- 7217 12 Dec, 2017 [facility] [id number] [place] [address] 36416- 0031 Oct, [facility] [id number] [place] [address] 45966- 5944 07 Oct, 2017 [facility] [id number] [place] [address] 28322- 7831 Sep, [facility] [id number] [place] [address] 15243- 8248 16 Sep, 2017 [facility] [id number] [place] [address] 86680- 3958 16 Sep, 2017 Dental examination Z01.20 [facility] [id number] [place] [address] 08104- 3333 Sep, Morbid obesity due to excess calories E66.01 ; Body mass index (BMI) of 70 or greater in adult Z68.45 ; Stasis dermatitis without varicosities I87.2 ; Lymphedema I89.0 ; Renal insufficiency N28.9 ; Acquired hypothyroidism E03.9 ; Cellulitis L03.90 ; Bronchitis J40 and BMI 40.0-44.9, adult Z68.41 [facility] [id number] [place] [address] 16523- 1903 Aug, [facility] [address] [facility] [id number] [id number] Aug, Dental examination Z01.20 [facility] [id number] [place] [address] 55252- 0613 Aug, [facility] [address] [address]- 7936 26 Jul, 2017 [facility] [id number] [place] [address] 30605- 5088 Jul, [facility] [address] [facility] [id number] [place] [address] 32069- 3137 18 Jul, 2017 [facility] [id number] [place] [address] 13333- 8150 14 Jul, 2017 [facility] [id number] [place] [address] 38962- 1154 Jul, [facility] [id number] [place] [address] 25881- 9604 Jun, [facility] [id number] [place] [address] 31314- 9963 Jun, Dependence on nocturnal oxygen therapy Z99.81 ; Morbid obesity due to excess calories E66.01 and Bronchitis J40 [facility] [address] [address] 1860 Jun, Restless legs syndrome G25.81 [facility] [address] [address]- 6021 Jun, [facility] [id number] [place] [address] 52341- 4525 May, [facility] [id number] [place] [address] [id number] Apr, [facility] [address] [address] 8783 Apr, [facility] [id number] [place] [address] 00464- 4457 Apr, Essential hypertension I10 [facility] [id number] [place] [address] 22152- 6103 Apr, [place] [id number] [place] [address] 89967- 0712 Apr, Chronic pain syndrome G89.4 and Urge incontinence of urine N39.41 [place] [id number] [place] [address] 38176- 2316 March, Acquired hypothyroidism E03.9 [place] [id number] [place] [address] 93899- 7794 March, [place] [id number] [place] [address] 80001- 1042 March, [place] [id number] [place] [address] 91643- 4901 March, Chronic pain syndrome G89.4 ; Essential [...] extremity L03.116 and Screening breast examination Z12.39 [place] [id number] [place] [address] 00619- 0386 March, [facility] [id number] [place] [address] 04599- 9325 Feb, [place] [id number] [place] [address] 85119- 4534 Feb, [place] [id number] [place] [address] 92058- 4918 Feb, Chronic pain syndrome G89.4 [facility] [id number] [place] [address] 53919 -4661 Feb, Right foot pain M79.671 and Right foot sprain, initial encounter S93.601A [facility] [address] [address]- 2580 Jan, [facility] [id number] [place] [address] 25649- 0082 Jan, [facility] [id number] [place] [address] 50356- 1838 Jan, Chronic pain syndrome G89.4 [facility] [id number] [place] [address] 42067- 4215 Jan, [place] [id number] [place] [address] 29334- 1303 Dec, [place] [id number] [place] [address] 44881- 7637 Dec, [place] [id number] [place] [address] 60149- 3009 Dec, Pain in right knee M25.561 ; Pain in left knee M25.562 ; Essential hypertension I10 ; Chronic stasis dermatitis I83.10 ; Restless legs syndrome G25.81 ; Acquired hypothyroidism E03.9 ; Dependence on nocturnal oxygen therapy Z99.81 ; Mixed hyperlipidemia E78.2 ; Lymphedema I89.0 ; Chronic pain syndrome G89.4 ; Gastroesophageal reflux disease without esophagitis K21.9 and Urge incontinence of urine N39.41 [place] [address] [address]- 1739 Nov, Mixed hyperlipidemia E78.2 [facility] [address] [address]- 9282 Nov, [place] [id number] [place] [address] 95957- 3450 Nov, [facility] [address], [place] [address]- 8057 Nov, [facility] [id number], [place] [address] -3837 Nov, Stasis ulcer, left I83.029 [facility] [address], [place] [address]- 7526 Nov, [facility] [address], [place] [address]- 5326 Oct, [facility] [address], [place] [address]- 9591 Oct, [facility] [address], [place] [address]- 6359 Oct, [facility] [address], [place] [address]- 8980 Sep, [facility] [address], [place] [address]- 6246 Sep, [address] [address] Sep, [facility] [address], [place] [address]- 1670 Aug, [facility] [address], [place] [address]- 2330 Jul, [facility] [address], [place] [address]- 7526 Jul, [facility] [address], [place] [address]- 7851 Jul, [facility] [address], [place] [address]- 5469 Jul, [facility] [address], [place] [address]- 6640 Jul, Chest pain, unspecified type R07.9 ; Dyspnea on exertion R06.09 ; Essential hypertension I10 ; Hyperlipidemia, unspecified hyperlipidemia type E78.5 ; Left bundle branch block I44.7 and Hypothyroidism, unspecified type E03.9 [facility] [id number] [place] [address] 01087 -2564 Jun, Fever, unspecified fever cause R50.9 ; Headache, unspecified headache type R51 ; SOB (shortness of breath) R06.02 and Strep pharyngitis J02.0 [facility] [id number] [place] [address] 86830- 1849 Jun, [facility] [address] 68355- 1693 Jun, [facility] [address] 45742- 8182 Jun, Essential hypertension I10 ; Mixed hyperlipidemia E78.2 and Acquired hypothyroidism E03.9 [facility] [id number] [place] [address] 03490- 8928 Jun, Edema of both legs R60.0 ; Hypoxia R09.02 and Essential hypertension I10 [facility] [address] 57189- 2318 Jun, [place] [address] 32177- 0195 Jun, Edema of both legs R60.0 ; Hypoxia R09.02 and Essential hypertension I10 [facility] [id number] [place] [address] 15092- 9072 Jun, Essential hypertension I10 ; Dependence on supplemental oxygen Z99.81 and Edema of both legs R60.0 [place] [id number] [place] [address] 88322- 4330 May, Lumbar pain M54.5 ; Essential hypertension I10 ; Edema of both legs R60.0 ; Stasis dermatitis without varicosities I87.2 and Left knee pain M25.562 [facility] [id number] [place] [address] 42505- 1686 May, [facility] [address] 76881- 0456 May, [facility] [address], [place] [address]- 0099 May, [facility] [id number] [place] [address] 69366- 2313 Apr, [facility] [id number] [place] [address] 97718- 1913 Apr, [facility] [id number] [place] [address] 07280- 2661 March, [facility] [id number] [place] [address] 89301- 2788 March, Lymphedema I89.0 ; Morbid obesity due to excess calories E66.01 ; Alteration in mobility due to weakness R53.1 and Hypoxia R09.02 [place] [id number] [place] [address] 04378- 9060 March, Abdominal wall mass R19.00 [place] [id number] [place] [address] 34481- 5955 March, [facility] [id number] [place] [address] 15345- 8980 March, Abdominal wall mass R19.00 ; Lower abdominal pain R10.30 ; Alteration in mobility due to weakness R53.1 ; Hypoxia R09.02 and Lymphedema I89.0 [place] [address], [place] [address]- 7236 Feb, [facility] [id number] [place] [address] 23029- 3000 Feb, Acquired hypothyroidism E03.9 ; Dependence on machine for supplemental oxygen V46.2 ; Restless legs syndrome G25.81 ; Essential hypertension I10 ; Renal insufficiency N28.9 ; Chronic stasis dermatitis I83.10 ; Mixed hyperlipidemia E78.2 ; Other chronic pain 338.29 and Cellulitis of left lower extremity L03.116 [place] [id number] [place] [address] 56253- 4163 Feb, [facility] [id number] [place] [address] 85003- 7658 Feb, [facility] [address] 97681 -0061 Feb, Shortness of breath R06.02 and Bronchitis J40 [place] [address] 19467- 0217 Jan, Dependence on supplemental oxygen Z99.81 [place] [address] 62283- 5784 Jan, [place] [address] 03399- 6095 Dec, [place] [address] 28239- 1601 Dec, [place] [address] 44456- 2178 Nov, Osteoarthritis of knees, bilateral M17.0 [place] [address] 61370- 4837 Nov, Dependence on machine for supplemental oxygen V46.2 ; Nocturnal hypoxia G47.34 and Urgency of urination R39.15 [place] [address] 85829- 0074 Nov, [place] [address] 97098- 3033 Oct, Pain in right knee M25.561 and Pain in left knee M25.562 [place] [address] 17846- 1552 Oct, Acquired hypothyroidism E03.9 ; Renal insufficiency N28.9 and Chronic stasis dermatitis I83.10 [place] [address] 14085- 7589 Oct, [place] [id number] [place] [address] 80565- 2613 Sep, Cellulitis L03.90 ; Left knee pain M25.562 ; Essential hypertension I10 ; Lymphedema I89.0 ; Lumbar pain M54.5 ; Morbid obesity due to excess calories E66.01 and Renal insufficiency N28.9 [facility] [id number] [place] [address] 73360- 5072 Sep, Cellulitis L03.90 and Lymphedema I89.0 [place] [id number] [place] [address] 37711- 3932 Sep, [place] [address] 23664- 4580 Sep, [place] [id number] [place] [address] 95177- 3108 Sep, Left knee pain M25.562 ; Lumbar pain M54.5 ; Restless legs syndrome G25.81 ; Acquired hypothyroidism E03.9 and Essential hypertension I10 [place] [id number] [place] [address] 89220- 6183 Jul, [place] [id number] [place] [address] 72749- 7509 Jun, [facility] [id number] [place] [address] 97623- 9359 May, [place] [id number] [place] [address] 06973- 8723 May, [facility] [id number] [place] [address] 86896- 1574 May, Hypertension 997.91 ; Restless legs syndrome [RLS] 333.94 ; Unspecified venous (peripheral) insufficiency 459.81 ; Unspecified hypothyroidism 244.9 and Other chronic pain 338.29 [facility] [id number] [place] [address] 04983- 4879 Apr, [facility] [id number], [place] [address]- 7479 Apr, [facility] [id number] [place] [address] 70988- 1576 Apr, Restless legs syndrome [RLS] 333.94 ; Shortness of breath 786.05 ; Unspecified venous (peripheral) insufficiency 459.81 ; Unspecified hypothyroidism 244.9 ; Obesity, unspecified 278.00 ; Other chronic pain 338.29 ; Hypertension 997.91 and Hyperlipidemia 272.4 [facility] [address] [address]- 2716 Feb, [facility] [id number] [place] [address] 82149- 0924 Feb, [facility] [id number] [place] [address] 26576- 7869 Jan, [facility] [id number] [place] [address] 305262- 1230 Jan, [facility] [id number] [address]- 9888 Jan, [facility] [id number] [place] [address] 66373- 4955 Jan, [facility] [address], [place] [address]- 9040 Jan, [facility] [address] [address]- 1767 Jan, [facility] [address], [place] [address]- 1423 Jan, [facility] [id number] [place] [address] 51907- 6057 Jan, [facility] [address] 3569 Jan, [facility] [address] 8070 Jan, [facility] [place] [facility] [address] [id number] [place] [address]- 8013 Jan, [facility] [place] [facility] [address] [id number] [place] [address]- 9204 Jan, [facility] [place] [facility] [address] [id number] [place] [address]- 6043 Jan, [facility] [place] [facility] [address] [id number] [place] [address]- 1589 Jan, [facility] [place] [facility] [address] [id number] [place] [address]- 8904 Dec, [facility] [place] [facility] [address] [id number] [place] [address]- 0361 Dec, [facility] [place] [facility] [address] [id number] [place] [address]- 6141 Nov, [facility] [place] [facility] [address] [id number] [place] [address]- 6003 Nov, [facility] [place] [facility] [address] [id number] [place] [address]- 6616 Nov, [facility] [place] [facility] [address] [id number] [place] [address]- 0027 Nov, [facility] [place] [facility] [address] [id number] [address]- 9065 Nov, [facility] [place] [facility] [address] [id number] [address]- 9274 Nov, [facility] [place] [facility] [address] [id number] [place] [address]- 9475 Nov, [facility] [place] [facility] [address] [id number] [place] [address]- 6221 Nov, [facility] [place] [facility] [address] [id number] [place] [address]- 7267 Nov, [facility] [place] [facility] [address] [id number] [address]- 8376 14 Nov, 2014 [facility] [place] [facility] [address] [id number] [place] [address]- 3862 14 Nov, 2014 [facility] [place] [facility] [address] [id number] [address]- 6694 Nov, [facility] [place] [facility] [address] [facility] [id number] [place] [address]- 2290 Nov, [facility] [place] [facility] [address] [id number] [place] [address]- 1659 Nov, [facility] [place] [facility] [id number] [place] [address], [place] [address]- 0288 Nov, [facility] [place] [facility] [address] [id number] [place] [address]- 4390 Nov, [facility] [place] [facility] [address] [facility] [id number], [place] [address]- 3441 Oct, [facility] [place] [facility] [address] [id number] [place] [address]- 1594 Oct, [facility] [place] [facility] [address] [facility] [id number] [place] [address]- 1383 Sep, [facility] [place] [facility] [address] [facility] [id number], [place] [address]- 9665 Aug, [facility] [place] [facility] [address] [id number], [place] [address]- 1568 Aug, [facility] [place] [facility] [address] [id number], [place] [address]- 1121 Aug, [facility] [place] [facility] [address] [id number] [place] [address]- 8225 Aug, [facility] [place] [facility] [address] [facility] [id number], [place] [address] Aug, [facility] [place] [facility] [address] [facility] [id number], [place] [address] Aug, [facility] [place] [facility] [address] [id number] [place] [address] Aug, [facility] [place] [facility] [address] [id number] [place] [address] Aug, [facility] [place] [facility] [address] [id number] [place] [address] Aug, [facility] [place] [facility] [address] [id number] [place] [address] Aug, [facility] [place] [facility] [address] [id number] [place] [address] Jun, [facility] [place] [facility] [address] [id number] [place] [address] Jun, [facility] [place] [facility] [address] [id number] [place] [address] Jun, [facility] [place] [facility] [address] [id number] [place] [address] Jun, [facility] [place] [facility] [address] [id number] [place] [address] Jun, [facility] [place] [facility] [address] [id number] [place] [address] Jun, [facility] [place] [facility] [address] [id number] [place] [address] Jun, [facility] [place] [facility] [address] [id number] [place] [address] Jun, [facility] [place] [facility] [address] [id number] [place] [address] Jun, [facility] [place] [facility] [address] [id number] [place] [address] Jun, [facility] [place] [facility] [address] [id number] [place] [address] May, [facility] [place] [facility] [address] [id number] [place] [address]- [address] May, [facility] [place] [facility] [address] [id number] [place] [address] May, [facility] [place] [facility] [address] [id number] [place] [address] May, [facility] [place] [facility] [address] [id number] [place] [address] May, [facility] [place] [facility] [address] [id number] [place] [address]- [address] May, [facility] [place] [facility] [address] [id number] [place] [address]- [address] May, [facility] [place] [facility] [address] [id number] [place] [address]- [address] May, [facility] [place] [facility] [address] [id number] [place] [address]- [address] May, 2013 [facility] [place] [facility] [address] [id number] [place] [address] May, 2013 [facility] [place] [facility] [address] [id number] [place] [address] May, [facility] [place] [facility] [address] [id number] [place] [address]- [address] May, 2013 [facility] [place] [facility] [address] [id number] [place] [address]- [address] May, [facility] [place] [facility] [address] [id number] [place] [address] May, 2013 [facility] [place] [facility] [address] [id number] [place] [address] May, [facility] [place] [facility] [address] [id number] [place] [address] May, [facility] [place] [facility] [address] [id number] [place] [address] May, 2013 [facility] [place] [facility] [address] [id number] [place] [address] May, [facility] [place] [facility] [address] [id number] [place] [address] Apr, [facility] [place] [facility] [address] [id number] [place] [address] Apr, [facility] [place] [facility] [address] [id number] [place] [address] 3744 Apr, [facility] [place] [facility] [address] [id number] [place] [address] Apr, [facility] [place] [facility] [address] [id number] [place] [address] 5395 Apr, [facility] [place] [facility] [address] [id number] [place] [address]- 9065 Apr, [facility] [place] [facility] [address] [id number] [place] [address] 7053 Apr, [facility] [place] [facility] [address] [id number] [place] [address] 3239 Apr, [facility] [place] [facility] [address] [id number] [place] [address]- 1831 Apr, [facility] [place] [facility] [address] [id number] [place] [address] 0844 Apr, [facility] [place] [facility] [address] [id number] [place] [address]- 5812 Apr, [facility] [place] [facility] [address] [id number] [place] [address] 9900 Apr, [facility] [place] [facility] [address] [id number] [place] [address] 8848 March, [facility] [place] [facility] [address] [id number] [place] [address] 6527 March, [facility] [place] [facility] [address] [id number] [place] [address]- 7098 March, [facility] [place] [facility] [address] [id number] [place] [address]- 8158 March, [facility] [place] [facility] [address] [id number] [place] [address] 6879 March, [facility] [place] [facility] [address] [id number] [place] [address] 9588 March, [facility] [place] [facility] [address] [id number] [place] [address]- 8619 March, [facility] [place] [facility] [address] [id number] [place] [address] 2526 March, [facility] [place] [facility] [address] [id number] [place] [address]- 0970 March, [facility] [place] [facility] [address] [id number] [place] [address]- 2652 March, [facility] [place] [facility] [address] [id number] [place] [address]- 9643 March, [facility] [place] [facility] [address] [id number] [place] [address]- 1026 Feb, [facility] [place] [facility] [address] [id number] [place] [address]- 6249 Feb, [facility] [place] [facility] [address] [id number] [place] [address]- 7793 Feb, [facility] [place] [facility] [address] [id number] [place] [address]- 3270 Feb, [facility] [place] [facility] [address] [id number] [place] [address]- 9342 Feb, [facility] [place] [facility] [address] [id number] [place] [address]- 2484 Feb, [facility] [place] [facility] [address] [id number] [place] [address]- 7464 Feb, [facility] [place] [facility] [address] [id number] [place] [address]- 6218 Feb, [facility] [place] [facility] [address] [id number] [place] [address]- 4134 Feb, [facility] [place] [facility] [address] [id number] [place] [address]- 1050 Feb, [facility] [place] [facility] [address] [id number] [place] [address]- 8627 Feb, [facility] [place] [facility] [address] [id number] [place] [address]- 4404 Feb, [facility] [place] [facility] [address] [id number] [place] [address]- 3110 Feb, [facility] [place] [facility] [address] [id number] [place] [address]- 4434 Feb, [facility] [place] [facility] [address] [id number] [place] [address]- 1575 Feb, [facility] [place] [facility] [address] [id number] [place] [address]- 3222 Feb, [facility] [place] [facility] [address] [id number] [place] [address]- 1225 Feb, [facility] [place] [facility] [address] [id number] [place] [address]- 0653 Feb, [facility] [place] [facility] [address] [id number] [place] [address]- 5760 Feb, [facility] [place] [facility] [address] [id number] [place] [address]- 1834 Feb, [facility] [place] [facility] [address] [id number] [place] [address]- 2208 Jan, [facility] [place] [facility] [address] [id number] [place] [address]- 0019 Jan, [facility] [place] [facility] [address] [id number] [place] [address]- 2058 Jan, [facility] [place] [facility] [address] [id number] [place] [address]- 4158 25 Jan, 2014 [facility] [place] [facility] [address] [id number] [place] [address]- 8332 24 Jan, 2014 [facility] [place] [facility] [address] [id number] [place] [address] 24 Jan, 2014 [facility] [place] [facility] [address] [id number] [place] [address]- 9367 18 Jan, 2014 [facility] [place] [facility] [address] [id number] [place] [address]- 7107 18 Jan, 2014 [facility] [place] [facility] [address] [id number] [place] [address]- 7715 14 Jan, 2014 [facility] [place] [facility] [address] [id number] [place] [address]- 6516 14 Jan, 2014 [facility] [place] [facility] [address] [id number] [place] [address]- 8107 Jan, [facility] [place] [facility] [address] [id number] [place] [address]- 5563 Jan, [facility] [place] [facility] [address] [id number] [place] [address]- 4965 05 Jan, 2014 [facility] [place] [facility] [address] [id number] [place] [address]- 6026 Jan, [facility] [place] [facility] [address] [id number] [place] [address]- 0975 Dec, [facility] [place] [facility] [address] [id number] [place] [address]- 8194 Dec, [facility] [place] [facility] [address] [id number] [place] [address]- 0708 Dec, [facility] [place] [facility] [address] [id number] [place] [address]- 9026 Dec, [facility] [place] [facility] [address] [id number] [place] [address]- 0287 Dec, [facility] [address] [id number] [place] [address]- 2718 Dec, [facility] [place] [facility] [address] [id number] [place] [address]- 8314 Dec, [facility] [place] [facility] [address] [id number] [place] [address]- 2116 Dec, [facility] [place] [facility] [address] [id number] [place] [address]- 3942 Dec, [facility] [place] [facility] [address] [id number] [place] [address]- 2401 Nov, [facility] [place] [facility] [address] [id number] [place] [address]- 4756 Nov, [facility] [place] [facility] [address] [id number] [place] [address]- 8673 Nov, [facility] [place] [facility] [address] [id number] [place] [address]- 7756 Nov, [facility] [place] [facility] [address] [id number] [place] [address]- 5606 Oct, [facility] [place] [facility] [address] [id number] [place] [address]- 9701 Oct, [facility] [place] [facility] [address] [id number] [place] [address]- 7168 Oct, [facility] [place] [facility] [address] [id number] [place] [address]- 8297 Oct, [facility] [place] [facility] [address] [id number] [place] [address]- 2621 Oct, [facility] [place] [facility] [address] [id number] [place] [address]- 9506 Oct, [facility] [place] [facility] [address] [id number] [place] [address]- 4729 Oct, [facility] [place] [facility] [address] [id number] [place] [address]- 2569 23 Oct, 2012 [facility] [address] [id number] [place] [address]- 1326 20 Oct, 2013 [facility] [address] [id number] [place] [address] 19 Oct, 2013 [facility] [address] [id number] [place] [address]- 9416 19 Oct, 2013 [facility] [address] [id number] [place] [address]- 2455 18 Oct, 2013 [facility] [address] [id number] [place] [address]- 4941 18 Oct, 2013 [facility] [address] [id number] [place] [address]- 3426 17 Oct, 2013 [facility] [address] [id number] [place] [address]- 8677 17 Oct, 2013 [facility] [address] [id number] [place] [address]- 0344 17 Oct, 2013 [facility] [address] [id number] [place] [address]- 0317 17 Oct, 2013 [facility] [address] [id number] [place] [address]- 1424 17 Oct, 2013 [facility] [address] [id number] [place] [address]- 9193 17 Oct, 2013 [facility] [address] [id number] [place] [address]- 8303 11 Oct, 2013 [facility] [address] [id number] [place] [address]- 3407 11 Oct, 2013 [facility] [address] [id number] [place] [address]- 3310 27 Sep, 2013 [facility] [address] [id number] [place] [address]- 6278 Sep, [facility] [place] [facility] [address] [id number] [place] [address]- 6773 Sep, [facility] [place] [facility] [address] [id number] [place] [address]- 6653 Sep, [facility] [place] [facility] [address] [id number] [place] [address]- 0985 18 Sep, 2013 [facility] [place] [facility] [address] [id number] [place] [address]- 0792 Sep, [facility] [place] [facility] [address] [id number] [place] [address]- 8276 Sep, [facility] [place] [facility] [address] [id number] [place] [address]- 3525 Sep, [facility] [place] [facility] [address] [id number] [place] [address]- 0208 Sep, [facility] [place] [facility] [address] [id number] [place] [address]- 1989 Sep, [facility] [place] [facility] [address] [id number] [place] [address]- 6019 Sep, [facility] [place] [facility] [address] [id number], [place] [address]- 2000 Sep, [facility] [place] [facility] [address] [id number], [place] [address]- 4631 Aug, [facility] [place] [facility] [address] [id number], [place] [address]- 1741 Aug, [facility] [place] [facility] [address] [id number] [place] [address]- 0115 Aug, [facility] [place] [facility] [address] [id number] [place] [address]- 5628 Aug, [facility] [place] [facility] [address] [id number], [place] [address]- 1673 Aug, [facility] [place] [facility] [address] [id number] [place] [address]- 0713 Aug, 2012 [facility] [place] [facility] [address] [id number] [place] [address]- 9979 Aug, 2012 [facility] [place] [facility] [address] [id number] [place] [address]- 0515 Aug, 2012 [facility] [place] [facility] [address] [id number] [place] [address]- 2775 16 Aug, 2012 [facility] [place] [facility] [address] [id number] [place] [address]- 4673 16 Aug, 2012 [facility] [place] [facility] [address] [id number] [place] [address]- 0731 10 Aug, 2012 [facility] [place] [facility] [address] [id number] [place] [address]- 7989 10 Aug, 2012 [facility] [place] [facility] [address] [id number] [place] [address]- 2011 08 Aug, 2012 [facility] [place] [facility] [address] [id number] [place] [address]- 8308 07 Aug, 2013 [facility] [place] [facility] [address] [id number] [place] [address]- 3681 04 Aug, 2013 [facility] [place] [facility] [address] [id number] [place] [address]- 0923 Aug, [facility] [place] [facility] [address] [id number] [place] [address]- 3472 Aug, [facility] [place] [facility] [address] [id number], [place] [address]- 3685 Jul, [facility] [place] [facility] [address] [id number] [place] [address]- 4189 Jun, [facility] [place] [facility] [address] [id number] [place] [address]- 6392 Jun, [facility] [place] [facility] [address] [id number], [place] [address]- 4021 May, [facility] [place] [facility] [address] [id number] [place] [address]- 7463 May, [facility] [place] [facility] [address] [id number] [place] [address]- 8694 Apr, [facility] [place] [facility] [address] [id number] [place] [address]- 3089 Apr, [facility] [place] [facility] [address] [id number] [place] [address]- 9053 Apr, [facility] [place] [facility] [address] [id number] [place] [address]- 3409 Apr, [facility] [place] [facility] [address] [id number] [place] [address]- 6738 Apr, [facility] [place] [facility] [address] [id number] [place] [address]- 7888 Apr, [facility] [place] [facility] [address] [id number] [place] [address]- 1435 07 Apr, 2013 [facility] [place] [facility] [address] [id number] [place] [address]- 7451 07 Apr, 2013 [facility] [place] [facility] [address] [id number] [place] [address]- 3526 Apr, [facility] [place] [facility] [address] [id number] [place] [address]- 1136 Apr, [facility] [place] [facility] [address] [id number] [place] [address]- 7059 Apr, [facility] [place] [facility] [address] [id number] [place] [address]- 3285 March, [facility] [place] [facility] [address] [id number] [place] [address]- 9204 March, [facility] [place] [facility] [address] [id number] [place] [address]- 4968 March, [facility] [place] [facility] [address] [id number] [place] [address]- 2722 March, [facility] [address] [id number] [place] [address]- 9057 March, [facility] [address] [id number] [place] [address]- 2036 Feb, [facility] [address] [id number] [place] [address]- 1202 Feb, [facility] [address] [id number] [place] [address]- 5730 Jan, [facility] [address] [id number] [place] [address]- 7860 Jan, [facility] [address] [id number] [place] [address]- 6359 Jan, [facility] [address] [id number] [place] [address]- 2196 Jan, [facility] [address] [id number] [place] [address]- 6078 Jan, [facility] [address] [id number] [place] [address]- 2134 Dec, [facility] [place] [facility] [address] [id number] [place] [address]- 0836 Dec, [facility] [address] [id number], [place] [address]- 3504 Nov, [facility] [place] [facility] [address] [id number], [place] [address]- 3751 Nov, [facility] [place] [facility] [address] [id number] [place] [address]- 5436 Nov, [facility] [place] [facility] [address] [id number] [place] [address]- 4216 Nov, [facility] [place] [facility] [address] [id number] [place] [address]- 8626 Nov, [facility] [place] [facility] [address] [id number] [place] [address]- 1678 14 Nov, 2012 [facility] [address] [id number] [place] [address]- 4002 14 Nov, 2012 [facility] [address] [id number] [place] [address]- 0906 11 Nov, 2012 [facility] [address] [id number] [place] [address]- 8959 Nov, [facility] [address] [id number] [place] [address]- 0994 Nov, [facility] [address] [id number] [place] [address]- 2925 Nov, [facility] [address] [id number] [place] [address]- 6493 Oct, [facility] [address] [id number] [place] [address]- 2381 Oct, [facility] [address] [id number] [place] [address]- 8492 Sep, [facility] [address] [id number] [place] [address]- 7383 Sep, [facility] [address] [id number] [place] [address]- 1928 Sep, [facility] [address] [id number] [place] [address]- 1234 Sep, [facility] [address] [id number] [place] [address]- 5973 Sep, [facility] [address] [id number] [place] [address]- 9522 Sep, [facility] [address] [id number] [place] [address]- 7731 Sep, [facility] [address] [id number] [place] [address]- 9119 Sep, [facility] [place] [facility] [address] [id number] [place] [address]- 0994 Sep, [facility] [place] [facility] [address] [id number] [place] [address]- 1176 Sep, [facility] [place] [facility] [address] [id number] [place] [address]- 5257 Sep, [facility] [place] [facility] [address] [id number] [place] [address]- 9520 Sep, [facility] [place] [facility] [address] [id number] [place] [address]- 1988 Sep, [facility] [place] [facility] [address] [id number] [place] [address]- 1110 Sep, [facility] [place] [facility] [address] [facility] [id number] [place] [address]- 3369 Aug, [facility] [place] [facility] [address] [id number], [place] [address]- 1564 Aug, [facility] [place] [facility] [address] [facility] [id number], [place] [address]- 7619 Aug, [facility] [place] [facility] [address] [facility] [id number], [place] [address]- 4668 Aug, [facility] [place] [facility] [address] [facility] [id number], [place] [address]- 2296 Aug, [facility] [place] [facility] [address] [id number], [place] [address]- 0158 Aug, [facility] [place] [facility] [address] [facility] [id number], [place] [address]- 4725 Aug, [facility] [place] [facility] [address] [facility] [id number], [place] [address]- 4256 Aug, [facility] [place] [facility] [address] [facility] [id number], [place] [address]- 2709 Aug, [facility] [place] [facility] [address] [id number], [place] [address]- 5061 Aug, [facility] [id number], [place] [address]- 4982 Aug, [facility] [id number], [place] [address]- 4066 Aug, [facility] [id number], [place] [address]- 0389 Aug, [facility] [id number] [place] [address]- 4444 Aug, [facility] [id number] [place] [address]001- 8231 Aug, [facility] [id number] [place] [address] 6[address]- 9335 Aug, [facility] [id number] [place] [address] 70222- 2753 Aug, [facility] [address] [id number], [place] [address]- 3181 Jul, [facility] [id number] [place] [phone] Jun, [facility] [id number] [address] Aug, [facility] [id number] [address] Aug, [facility] [id number] [address] Aug, IMMUNIZATIONS No Known Immunizations SOCIAL HISTORY Never Assessed REASON FOR VISIT Medication refill request PLAN OF CARE VITAL SIGNS MEDICATIONS Medication Instructions Dosage Frequency Start Date End Date Duration Status Ropinirole HCl 4 MG Orally Once a day 1 tablet 1 to 3 hours before bedtime 24h 30 Active RESULTS No Results PROCEDURES [...]
--- OUTSIDE RECORDS SUMMARY | 2018-05-03 19:55 | XMS REPORT ---
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 Name Role Phone MADDIEArjun PIPPA Unavailable PROBLEMS Type Condition ICD9-CM Code KSP40-EF Code Onset Dates Condition Status SNOMED Code Problem Mixed hyperlipidemia E78.2 Active 625448480 Problem Stasis dermatitis without varicosities I87.2 Active 48026256 Problem Edema of both legs R60.0 Active 290830623 Problem Morbid (severe) obesity due to excess calories E66.01 Active 906051491 Problem Chronic pain syndrome G89.4 Active 428445990 Problem Dependence on supplemental oxygen Z99.81 Active 715929718033 Problem 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 Active 56084296 Problem Gastroesophageal reflux disease without esophagitis K21.9 Active 978866353 Problem Urge incontinence of urine N39.41 Active 87391622 Problem Restless legs syndrome G25.81 Active 826703040 Problem Essential hypertension I10 Active 58073654 Problem Chronic stasis dermatitis I83.10 Active 53730469 Problem Renal insufficiency N28.9 Active 333037613 Problem Acquired hypothyroidism E03.9 Active 819077769 Problem Lymphedema I89.0 Active 662882700 Problem Lumbar pain M54.5 Active 799865294 Problem Nocturnal hypoxia G47.34 Active 817667728 ALLERGIES No Information ENCOUNTERS Encounter Location Date Diagnosis [facility] [address] [facility] [id number] [address] Feb, [facility] [address] [address] 9315 Feb, [facility] [address] [id number], [place] [address] 8556 Jan, [facility] [id number] [place] [address] 37413- 0598 28 Jan, 2018 [facility] [id number] [place] [address] 46595- 5507 Jan, Acquired hypothyroidism E03.9 ; Morbid (severe) obesity due to excess calories E66.01 ; Body mass index (BMI) 70 or greater, adult Z68.45 ; Cellulitis of left anterior lower leg L03.116 ; Restless legs syndrome G25.81 ; Nocturnal hypoxia G47.34 and Dependence on supplemental oxygen Z99.81 [facility] [id number] [place] [address] 99344- 1995 Jan, [facility] [id number] [place] [address] 54340- 5508 12 Dec, 2017 [facility] [id number] [place] [address] 04194- 0646 Oct, [facility] [id number] [place] [address] 56924- 0994 07 Oct, 2017 [facility] [id number] [place] [address] 37857- 1194 Sep, [facility] [id number] [place] [address] 29418- 1734 16 Sep, 2017 [facility] [id number] [place] [address] 42884- 1705 16 Sep, 2017 Dental examination Z01.20 [facility] [id number] [place] [address] 47805- 7697 Sep, Morbid obesity due to excess calories E66.01 ; Body mass index (BMI) of 70 or greater in adult Z68.45 ; Stasis dermatitis without varicosities I87.2 ; Lymphedema I89.0 ; Renal insufficiency N28.9 ; Acquired hypothyroidism E03.9 ; Cellulitis L03.90 ; Bronchitis J40 and BMI 40.0-44.9, adult Z68.41 [facility] [id number] [place] [address] 43202- 2788 Aug, [facility] [address] [facility] [id number] [id number] Aug, Dental examination Z01.20 [facility] [id number] [place] [address] 86051- 8541 Aug, [facility] [address], [place] [address]- 4732 26 Jul, 2017 [facility] [id number] [place] [address] 06078- 0694 Jul, [facility] [address] [facility] [id number] [place] [address] 77489- 0068 18 Jul, 2017 [facility] [id number] [place] [address] 40846- 9789 14 Jul, 2017 [facility] [id number] [place] [address] 67307- 8054 Jul, [facility] [id number] [place] [address] 55885- 9155 Jun, [facility] [id number] [place] [address] 76889- 6617 Jun, Dependence on nocturnal oxygen therapy Z99.81 ; Morbid obesity due to excess calories E66.01 and Bronchitis J40 [facility] [address], [place] [address]- 9097 Jun, Restless legs syndrome G25.81 [facility] [address], [place] [address]- 4165 Jun, [facility] [id number] [place] [address] 90156- 3646 May, [facility] [id number] [place] [address] [id number] Apr, [facility] [address] [address] 5754 Apr, [facility] [id number] [place] [address] 81052- 8244 Apr, Essential hypertension I10 [facility] [address] [place] [address] 56053- 9514 Apr, [place] [id number] [place] [address] 38088- 1029 Apr, Chronic pain syndrome G89.4 and Urge incontinence of urine N39.41 [facility] [id number] [place] [address] 70183- 2038 March, Acquired hypothyroidism E03.9 [facility] [facility] [id number] [place] [address] 33051- 7159 March, [facility] [id number] [place] [address] 67041- 8948 March, [facility] [id number] [place] [address] 86893- 0912 March, Chronic pain syndrome G89.4 ; Essential [...] extremity L03.116 and Screening breast examination Z12.39 [facility] [address] [place] [address] 73037- 4718 March, [facility] [id number] [place] [address] 80699- 1240 Feb, [place] [id number] [place] [address] 20838- 8018 Feb, [facility] [id number] [place] [address] 34103- 5005 Feb, Chronic pain syndrome G89.4 [facility] [address] [place] [address] 15105 -8745 Feb, Right foot pain M79.671 and Right foot sprain, initial encounter S93.601A [facility] [address] [address]- 9360 Jan, [facility] [id number] [place] [address] 26022- 7697 Jan, [facility] [id number] [place] [address] 52313- 0231 Jan, Chronic pain syndrome G89.4 [facility] [id number] [place] [address] 05060- 8123 Jan, [place] [id number] [place] [address] 73738- 2493 Dec, [facility] [id number] [place] [address] 58631- 6201 Dec, [facility] [facility] [id number] [place] [address] 92074- 4463 Dec, Pain in right knee M25.561 ; Pain in left knee M25.562 ; Essential hypertension I10 ; Chronic stasis dermatitis I83.10 ; Restless legs syndrome G25.81 ; Acquired hypothyroidism E03.9 ; Dependence on nocturnal oxygen therapy Z99.81 ; Mixed hyperlipidemia E78.2 ; Lymphedema I89.0 ; Chronic pain syndrome G89.4 ; Gastroesophageal reflux disease without esophagitis K21.9 and Urge incontinence of urine N39.41 [place] [address], [place] [address]- 7936 Nov, Mixed hyperlipidemia E78.2 [facility] [address], [place] [address]- 6321 Nov, [place] [id number] [place] [address] 81974- 4105 Nov, [facility] [address] [address]- 0535 Nov, [facility] [address] [id number] [address] Nov, Stasis ulcer, left I83.029 [facility] [address], [place] [address]- 1772 Nov, [facility] [address], [place] [address]- 7924 Oct, [facility] [address], [place] [address]- 6777 Oct, [facility] [address], [place] [address]- 8378 Oct, [facility] [address], [place] [address]- 0670 Sep, [facility] [address], [place] [address]- 5112 Sep, [address] [address] Sep, [facility] [address] [address]- 9413 Aug, [facility] [address] [address]- 8618 Jul, [facility] [address], [place] [address]- 6253 Jul, [facility] [address] [address]- 7781 Jul, [facility] [address] [address]- 4203 Jul, [facility] [address] [address]- 0783 Jul, Chest pain, unspecified type R07.9 ; Dyspnea on exertion R06.09 ; Essential hypertension I10 ; Hyperlipidemia, unspecified hyperlipidemia type E78.5 ; Left bundle branch block I44.7 and Hypothyroidism, unspecified type E03.9 [facility] [id number] [place] [address] 44306 -7163 Jun, Fever, unspecified fever cause R50.9 ; Headache, unspecified headache type R51 ; SOB (shortness of breath) R06.02 and Strep pharyngitis J02.0 [facility] [id number] [place] [address] 97917- 3607 Jun, [facility] [address] 69996- 9058 Jun, [facility] [address] 24144- 7284 Jun, Essential hypertension I10 ; Mixed hyperlipidemia E78.2 and Acquired hypothyroidism E03.9 [facility] [id number] [place] [address] 21703- 2764 Jun, Edema of both legs R60.0 ; Hypoxia R09.02 and Essential hypertension I10 [facility] [address] 19902- 9107 Jun, [place] [address] 89508- 6089 Jun, Edema of both legs R60.0 ; Hypoxia R09.02 and Essential hypertension I10 [facility] [id number] [place] [address] 96705- 2897 Jun, Essential hypertension I10 ; Dependence on supplemental oxygen Z99.81 and Edema of both legs R60.0 [facility] [facility] [id number] [place] [address] 29898- 0553 May, Lumbar pain M54.5 ; Essential hypertension I10 ; Edema of both legs R60.0 ; Stasis dermatitis without varicosities I87.2 and Left knee pain M25.562 [facility] [id number] [place] [address] 69971- 1883 May, [facility] [address] 87707- 2517 May, [facility] [address] [address]- 5095 May, [facility] [id number] [place] [address] 15228- 0983 Apr, [facility] [address] [place] [address] 41313- 2145 Apr, [facility] [id number] [place] [address] 74822- 9136 March, [facility] [id number] [place] [address] 55202- 7646 March, Lymphedema I89.0 ; Morbid obesity due to excess calories E66.01 ; Alteration in mobility due to weakness R53.1 and Hypoxia R09.02 [place] [id number] [place] [address] 00116- 0686 March, Abdominal wall mass R19.00 [place] [facility] [id number] [place] [address] 73931- 7260 March, [facility] [id number] [place] [address] 68641- 1103 March, Abdominal wall mass R19.00 ; Lower abdominal pain R10.30 ; Alteration in mobility due to weakness R53.1 ; Hypoxia R09.02 and Lymphedema I89.0 [place] [address], [place] [address]- 2923 Feb, [facility] [address] [place] [address] 41192- 1476 Feb, Acquired hypothyroidism E03.9 ; Dependence on machine for supplemental oxygen V46.2 ; Restless legs syndrome G25.81 ; Essential hypertension I10 ; Renal insufficiency N28.9 ; Chronic stasis dermatitis I83.10 ; Mixed hyperlipidemia E78.2 ; Other chronic pain 338.29 and Cellulitis of left lower extremity L03.116 [facility] [facility] [id number] [place] [address] 50365- 2455 Feb, [facility] [id number] [place] [address] 11110- 1650 Feb, [facility] [address] 15861 -4681 Feb, Shortness of breath R06.02 and Bronchitis J40 [place] [address] 15460- 9222 Jan, Dependence on supplemental oxygen Z99.81 [place] [address] 53478- 2316 Jan, [place] [address] 03612- 9966 Dec, [place] [address] 87141- 8494 Dec, [place] [address] 81928- 9880 Nov, Osteoarthritis of knees, bilateral M17.0 [place] [address] 70817- 3119 Nov, Dependence on machine for supplemental oxygen V46.2 ; Nocturnal hypoxia G47.34 and Urgency of urination R39.15 [place] [address] 64257- 7829 Nov, [place] [address] 93612- 1194 Oct, Pain in right knee M25.561 and Pain in left knee M25.562 [place] [address] 32621- 1880 Oct, Acquired hypothyroidism E03.9 ; Renal insufficiency N28.9 and Chronic stasis dermatitis I83.10 [place] [address] 76869- 5178 Oct, [place] [id number] [place] [address] 68699- 7365 Sep, Cellulitis L03.90 ; Left knee pain M25.562 ; Essential hypertension I10 ; Lymphedema I89.0 ; Lumbar pain M54.5 ; Morbid obesity due to excess calories E66.01 and Renal insufficiency N28.9 [facility] [id number] [place] [address] 39409- 8770 Sep, Cellulitis L03.90 and Lymphedema I89.0 [facility] [id number] [place] [address] 23518- 1397 Sep, [place] [address] 78724- 2231 Sep, [place] [id number] [place] [address] 52845- 1066 Sep, Left knee pain M25.562 ; Lumbar pain M54.5 ; Restless legs syndrome G25.81 ; Acquired hypothyroidism E03.9 and Essential hypertension I10 [facility] [id number] [place] [address] 75994- 5253 Jul, [place] [id number] [place] [address] 44559- 8692 Jun, [facility] [id number] [place] [address] 76323- 3930 May, [place] [id number] [place] [address] 38034- 3166 May, [facility] [id number] [place] [address] 00144- 8366 May, Hypertension 997.91 ; Restless legs syndrome [RLS] 333.94 ; Unspecified venous (peripheral) insufficiency 459.81 ; Unspecified hypothyroidism 244.9 and Other chronic pain 338.29 [facility] [id number] [place] [address] 82586- 3762 Apr, [facility] [address] [address]- 7925 Apr, [facility] [address] [place] [address] 65936- 4608 Apr, Restless legs syndrome [RLS] 333.94 ; Shortness of breath 786.05 ; Unspecified venous (peripheral) insufficiency 459.81 ; Unspecified hypothyroidism 244.9 ; Obesity, unspecified 278.00 ; Other chronic pain 338.29 ; Hypertension 997.91 and Hyperlipidemia 272.4 [facility] [address] [place] [address]- 2776 Feb, [facility] [id number] [place] [address] 58998- 6518 Feb, [facility] [id number] [place] [address] 48354- 6225 Jan, [facility] [id number] [place] [address] 639383- 3037 Jan, [facility] [address] [address]- 3523 Jan, [facility] [id number] [place] [address] 95587- 7412 Jan, [facility] [address] [address]- 0477 Jan, [facility] [address] [address]- 4677 Jan, [facility] [address], [place] [address]- 2522 Jan, [facility] [id number] [place] [address] 64042- 9529 Jan, [facility] [address] 4465 Jan, [facility] [address] 1276 Jan, [facility] [place] [facility] [address] [id number] [place] [address]- 7665 Jan, [facility] [place] [facility] [address] [id number] [place] [address]- 1125 Jan, [facility] [place] [facility] [address] [id number] [place] [address]- 3481 Jan, [facility] [place] [facility] [address] [id number] [place] [address]- 8820 Jan, [facility] [place] [facility] [address] [id number] [place] [address]- 0589 Dec, [facility] [place] [facility] [address] [id number] [place] [address]- 0779 Dec, [facility] [place] [facility] [address] [id number] [place] [address]- 4668 Nov, [facility] [place] [facility] [address] [id number] [place] [address]- 3932 Nov, [facility] [place] [facility] [address] [id number] [place] [address]- 3154 Nov, [facility] [place] [facility] [address] [id number] [place] [address]- 1273 Nov, [facility] [place] [facility] [address] [id number] [address]- 8438 Nov, [facility] [place] [facility] [address] [id number] [address]- 7913 Nov, [facility] [place] [facility] [address] [id number] [place] [address]- 0330 Nov, [facility] [place] [facility] [address] [id number] [place] [address]- 1325 Nov, [facility] [place] [facility] [address] [id number] [place] [address]- 6715 Nov, [facility] [place] [facility] [address] [id number] [address]- 2380 14 Nov, 2014 [facility] [place] [facility] [address] [id number] [place] [address]- 2849 14 Nov, 2014 [facility] [place] [facility] [address] [id number] [address]- 3505 Nov, [facility] [place] [facility] [address] [facility] [id number] [place] [address]- 5122 Nov, [facility] [place] [facility] [address] [id number] [place] [address]- 9041 Nov, [facility] [place] [facility] [address] [id number] [place] [address], [place] [address]- 8042 Nov, [facility] [place] [facility] [address] [id number] [place] [address]- 5639 Nov, [facility] [place] [facility] [address] [facility] [id number], [place] [address]- 3967 Oct, [facility] [place] [facility] [address] [id number] [place] [address]- 8961 Oct, [facility] [place] [facility] [address] [facility] [id number] [place] [address]- 2945 Sep, [facility] [place] [facility] [address] [facility] [id number] [address]- 9351 Aug, [facility] [place] [facility] [address] [id number], [place] [address]- 2608 Aug, [facility] [place] [facility] [address] [id number], [place] [address]- 2476 Aug, [facility] [place] [facility] [address] [id number] [place] [address]- 6389 Aug, [facility] [place] [facility] [address] [facility] [id number] [address]- 8474 Aug, [facility] [place] [facility] [address] [facility] [id number] [address] Aug, [facility] [place] [facility] [address] [id number] [place] [address] Aug, [facility] [place] [facility] [address] [id number] [place] [address] Aug, [facility] [place] [facility] [address] [id number] [place] [address] Aug, [facility] [place] [facility] [address] [id number] [place] [address] Aug, [facility] [place] [facility] [address] [id number] [place] [address] Jun, [facility] [place] [facility] [address] [id number] [place] [address] Jun, [facility] [place] [facility] [address] [id number] [place] [address] Jun, [facility] [place] [facility] [address] [id number] [place] [address] Jun, [facility] [place] [facility] [address] [id number] [place] [address] Jun, [facility] [place] [facility] [address] [id number] [place] [address] Jun, [facility] [place] [facility] [address] [id number] [place] [address] Jun, [facility] [place] [facility] [address] [id number] [place] [address] Jun, [facility] [place] [facility] [address] [id number] [place] [address] Jun, [facility] [place] [facility] [address] [id number] [place] [address] Jun, [facility] [place] [facility] [address] [id number] [place] [address] May, [facility] [place] [facility] [address] [id number] [place] [address] May, [facility] [place] [facility] [address] [id number] [place] [address] May, [facility] [place] [facility] [address] [id number] [place] [address] May, [facility] [place] [facility] [address] [id number] [place] [address] May, [facility] [place] [facility] [address] [id number] [place] [address] May, [facility] [place] [facility] [address] [id number] [place] [address] May, [facility] [place] [facility] [address] [id number] [place] [address] May, [facility] [place] [facility] [address] [id number] [place] [address] May, 2013 [facility] [place] [facility] [address] [id number] [place] [address] May, 2013 [facility] [place] [facility] [address] [id number] [place] [address]- [address] May, [facility] [place] [facility] [address] [id number] [place] [address] May, 2013 [facility] [place] [facility] [address] [id number] [place] [address] May, [facility] [place] [facility] [address] [id number] [place] [address] May, 2013 [facility] [place] [facility] [address] [id number] [place] [address] May, [facility] [place] [facility] [address] [id number] [place] [address] May, [facility] [place] [facility] [address] [id number] [place] [address] May, 2013 [facility] [place] [facility] [address] [id number] [place] [address] May, [facility] [place] [facility] [address] [id number] [place] [address] Apr, [facility] [place] [facility] [address] [id number] [place] [address] Apr, [facility] [place] [facility] [address] [id number] [place] [address] Apr, [facility] [place] [facility] [address] [id number] [place] [address] Apr, [facility] [place] [facility] [address] [id number] [place] [address] Apr, [facility] [place] [facility] [address] [id number] [place] [address] Apr, [facility] [place] [facility] [address] [id number] [place] [address] Apr, [facility] [place] [facility] [address] [id number] [place] [address] Apr, [facility] [place] [facility] [address] [id number] [place] [address] Apr, [facility] [place] [facility] [address] [id number] [place] [address] Apr, [facility] [place] [facility] [address] [id number] [place] [address]- 8363 Apr, [facility] [place] [facility] [address] [id number] [place] [address]37 Apr, [facility] [place] [facility] [address] [id number] [place] [address] 1888 March, [facility] [place] [facility] [address] [id number] [place] [address] 6993 March, [facility] [place] [facility] [address] [id number] [place] [address] 8113 March, [facility] [place] [facility] [address] [id number] [place] [address] 9213 March, [facility] [place] [facility] [address] [id number] [place] [address] 8577 March, [facility] [place] [facility] [address] [id number] [place] [address] 2067 March, [facility] [place] [facility] [address] [id number] [place] [address] 0303 March, [facility] [place] [facility] [address] [id number] [place] [address] 2705 March, [facility] [place] [facility] [address] [id number] [place] [address] 9280 March, [facility] [place] [facility] [address] [id number] [place] [address] 7492 March, [facility] [place] [facility] [address] [id number] [place] [address] 6709 March, [facility] [place] [facility] [address] [id number] [place] [address]- 2194 Feb, [facility] [place] [facility] [address] [id number] [place] [address]- 7884 Feb, [facility] [place] [facility] [address] [id number] [place] [address]- 1222 Feb, [facility] [place] [facility] [address] [id number] [place] [address]- 3532 Feb, [facility] [place] [facility] [address] [id number] [place] [address]- 0926 Feb, [facility] [place] [facility] [address] [id number] [place] [address]- 4830 Feb, [facility] [place] [facility] [address] [id number] [place] [address]- 4151 Feb, [facility] [place] [facility] [address] [id number] [place] [address]- 8935 Feb, [facility] [place] [facility] [address] [id number] [place] [address]- 4728 Feb, [facility] [place] [facility] [address] [id number] [place] [address]- 8697 Feb, [facility] [place] [facility] [address] [id number] [place] [address]- 2141 Feb, [facility] [place] [facility] [address] [id number] [place] [address]- 7009 Feb, [facility] [place] [facility] [address] [id number] [place] [address]- 1206 Feb, [facility] [place] [facility] [address] [id number] [place] [address]- 2282 Feb, [facility] [place] [facility] [address] [id number] [place] [address]- 5388 Feb, [facility] [place] [facility] [address] [id number] [place] [address]- 6728 Feb, [facility] [place] [facility] [address] [id number] [place] [address]- 6237 Feb, [facility] [place] [facility] [address] [id number] [place] [address]- 8636 Feb, [facility] [place] [facility] [address] [id number] [place] [address]- 6117 Feb, [facility] [place] [facility] [address] [id number] [place] [address]- 5345 Feb, [facility] [place] [facility] [address] [id number] [place] [address]- 7346 Jan, [facility] [place] [facility] [address] [id number] [place] [address]- 7006 Jan, [facility] [place] [facility] [address] [id number] [place] [address]- 3731 Jan, [facility] [place] [facility] [address] [id number] [place] [address]- 2044 25 Jan, 2014 [facility] [place] [facility] [address] [id number] [place] [address]- 0758 24 Jan, 2014 [facility] [place] [facility] [address] [id number] [place] 24 Jan, 2014 [facility] [place] [facility] [address] [id number] [place] [address]- 0295 18 Jan, 2014 [facility] [place] [facility] [address] [id number] [place] [address]- 1141 18 Jan, 2014 [facility] [place] [facility] [address] [id number] [place] [address]- 9463 14 Jan, 2014 [facility] [place] [facility] [address] [id number] [place] [address]- 6181 14 Jan, 2014 [facility] [place] [facility] [address] [id number] [place] [address]- 5536 Jan, [facility] [place] [facility] [address] [id number] [place] [address]- 0738 Jan, [facility] [place] [facility] [address] [id number] [place] [address]- 8303 05 Jan, 2014 [facility] [place] [facility] [address] [id number] [place] [address]- 5117 Jan, [facility] [place] [facility] [address] [id number] [place] [address]- 7852 Dec, [facility] [place] [facility] [address] [id number] [place] [address]- 5253 Dec, [facility] [place] [facility] [address] [id number] [place] [address]- 0507 Dec, [facility] [place] [facility] [address] [id number] [place] [address]- 5606 Dec, [facility] [place] [facility] [address] [id number] [place] [address]- 9193 Dec, [facility] [address] [id number] [place] [address]- 8236 Dec, [facility] [place] [facility] [address] [id number] [place] [address]- 3174 Dec, [facility] [place] [facility] [address] [id number] [place] [address]- 5719 Dec, [facility] [place] [facility] [address] [id number] [place] [address]- 2580 Dec, [facility] [place] [facility] [address] [id number] [place] [address]- 9836 Nov, [facility] [place] [facility] [address] [id number] [place] [address]- 8118 Nov, [facility] [place] [facility] [address] [id number] [place] [address]- 7513 Nov, [facility] [place] [facility] [address] [id number] [place] [address]- 4646 Nov, [facility] [place] [facility] [address] [id number] [place] [address]- 0291 Oct, [facility] [place] [facility] [address] [id number] [place] [address]- 1943 Oct, [facility] [place] [facility] [address] [id number] [place] [address]- 7427 Oct, [facility] [place] [facility] [address] [id number] [place] [address]- 7886 Oct, [facility] [place] [facility] [address] [id number] [place] [address]- 2754 Oct, [facility] [place] [facility] [address] [id number] [place] [address]- 8018 Oct, [facility] [place] [facility] [address] [id number] [place] [address]- 5729 Oct, [facility] [place] [facility] [address] [id number] [place] [address]- 8340 23 Oct, 2012 [facility] [address] [id number] [place] [address]- 4516 20 Oct, 2013 [facility] [address] [id number] [place] 9396 19 Oct, 2013 [facility] [address] [id number] [place] [address]- 1866 19 Oct, 2013 [facility] [address] [id number] [place] [address]- 5302 18 Oct, 2013 [facility] [address] [id number] [place] 4052 18 Oct, 2013 [facility] [address] [id number] [place] [address]- 6106 17 Oct, 2013 [facility] [address] [id number] [place] [address]- 5530 17 Oct, 2013 [facility] [address] [id number] [place] [address]- 4880 17 Oct, 2013 [facility] [address] [id number] [place] [address]- 1372 17 Oct, 2013 [facility] [address] [id number] [place] [address]- 1555 17 Oct, 2013 [facility] [address] [id number] [place] [address]- 7659 17 Oct, 2013 [facility] [address] [id number] [place] [address]- 9158 11 Oct, 2013 [facility] [address] [id number] [place] [address]- 8677 11 Oct, 2013 [facility] [address] [id number] [place] [address]- 6338 27 Sep, 2013 [facility] [address] [id number] [place] [address]- 3049 Sep, [facility] [place] [facility] [address] [id number] [place] [address]- 5861 Sep, [facility] [place] [facility] [address] [id number] [place] [address]- 5825 Sep, [facility] [place] [facility] [address] [id number] [place] [address]- 5005 18 Sep, 2013 [facility] [place] [facility] [address] [id number] [place] [address]- 7204 Sep, [facility] [place] [facility] [address] [id number] [place] [address]- 5868 Sep, [facility] [place] [facility] [address] [id number] [place] [address]- 5247 Sep, [facility] [place] [facility] [address] [id number] [place] [address]- 3435 Sep, [facility] [place] [facility] [address] [id number] [place] [address]- 1428 Sep, [facility] [place] [facility] [address] [id number] [place] [address]- 7403 Sep, [facility] [place] [facility] [address] [id number], [place] [address]- 7220 Sep, [facility] [place] [facility] [address] [id number], [place] [address]- 8042 Aug, [facility] [place] [facility] [address] [id number], [place] [address]- 2202 Aug, [facility] [place] [facility] [address] [id number] [place] [address]- 8409 Aug, [facility] [place] [facility] [address] [id number] [place] [address]- 3459 Aug, [facility] [place] [facility] [address] [id number], [place] [address]- 7512 Aug, [facility] [place] [facility] [address] [id number] [place] [address]- 7725 Aug, 2012 [facility] [place] [facility] [address] [id number] [place] [address]- 1172 Aug, 2012 [facility] [place] [facility] [address] [id number] [place] [address]- 1213 Aug, 2012 [facility] [place] [facility] [address] [id number] [place] [address]- 9192 16 Aug, 2012 [facility] [place] [facility] [address] [id number] [place] [address]- 0967 16 Aug, 2012 [facility] [place] [facility] [address] [id number] [place] [address]- 4961 10 Aug, 2012 [facility] [place] [facility] [address] [id number] [place] [address]- 5474 10 Aug, 2012 [facility] [place] [facility] [address] [id number] [place] [address]- 4282 08 Aug, 2012 [facility] [place] [facility] [address] [id number] [place] [address]- 4003 07 Aug, 2013 [facility] [place] [facility] [address] [id number] [place] [address]- 6525 04 Aug, 2013 [facility] [place] [facility] [address] [id number] [place] [address]- 7010 Aug, [facility] [place] [facility] [address] [id number] [place] [address]- 0466 Aug, [facility] [place] [facility] [address] [id number], [place] [address]- 4277 Jul, [facility] [place] [facility] [address] [id number] [place] [address]- 0011 Jun, [facility] [place] [facility] [address] [id number] [place] [address]- 8810 Jun, [facility] [place] [facility] [address] [id number], [place] [address]- 4986 May, [facility] [place] [facility] [address] [id number] [place] [address]- 9958 May, [facility] [place] [facility] [address] [id number] [place] [address]- 2957 Apr, [facility] [place] [facility] [address] [id number] [place] [address]- 1711 Apr, [facility] [place] [facility] [address] [id number] [place] [address]- 8495 Apr, [facility] [place] [facility] [address] [id number] [place] [address]- 0339 Apr, [facility] [place] [facility] [address] [id number] [place] [address]- 3104 Apr, [facility] [place] [facility] [address] [id number] [place] [address]- 6626 Apr, [facility] [place] [facility] [address] [id number] [place] [address]- 1478 07 Apr, 2013 [facility] [place] [facility] [address] [id number] [place] [address]- 4351 07 Apr, 2013 [facility] [place] [facility] [address] [id number] [place] [address]- 2200 Apr, [facility] [place] [facility] [address] [id number] [place] [address]- 6456 Apr, [facility] [place] [facility] [address] [id number] [place] [address]- 2982 Apr, [facility] [place] [facility] [address] [id number] [place] [address]- 3648 March, [facility] [place] [facility] [address] [id number] [place] [address]- 7138 March, [facility] [place] [facility] [address] [id number] [place] [address]- 6628 March, [facility] [place] [facility] [address] [id number] [place] [address]- 1758 March, [facility] [address] [id number] [place] [address]- 6918 March, [facility] [address] [id number] [place] [address]- 7306 Feb, [facility] [address] [id number] [place] [address]- 1979 Feb, [facility] [address] [id number] [place] [address]- 3043 Jan, [facility] [address] [id number] [place] [address]- 4057 Jan, [facility] [address] [id number] [place] [address]- 5666 Jan, [facility] [address] [id number] [place] [address]- 3406 Jan, [facility] [address] [id number] [place] [address]- 4238 Jan, [facility] [address] [id number] [place] [address]- 6603 Dec, [facility] [place] [facility] [address] [id number] [place] [address]- 8466 Dec, [facility] [address] [id number], [place] [address]- 3407 Nov, [facility] [place] [facility] [address] [id number], [place] [address]- 5807 Nov, [facility] [place] [facility] [address] [id number] [place] [address]- 5886 Nov, [facility] [place] [facility] [address] [id number] [place] [address]- 0286 Nov, [facility] [place] [facility] [address] [id number] [place] [address]- 2516 Nov, [facility] [place] [facility] [address] [id number] [place] [address]- 7921 14 Nov, 2012 [facility] [address] [id number] [place] [address]- 3811 14 Nov, 2012 [facility] [address] [id number] [place] [address]- 7082 11 Nov, 2012 [facility] [address] [id number] [place] [address]- 8730 Nov, [facility] [address] [id number] [place] [address]- 7346 Nov, [facility] [address] [id number] [place] [address]- 5416 Nov, [facility] [address] [id number] [place] [address]- 5897 Oct, [facility] [address] [id number] [place] [address]- 3550 Oct, [facility] [address] [id number] [place] [address]- 5314 Sep, [facility] [address] [id number] [place] [address]- 4681 Sep, [facility] [address] [id number] [place] [address]- 5032 Sep, [facility] [address] [id number] [place] [address]- 0342 Sep, [facility] [address] [id number] [place] [address]- 2662 Sep, [facility] [address] [id number] [place] [address]- 7948 Sep, [facility] [address] [id number] [place] [address]- 9641 Sep, [facility] [address] [id number] [place] [address]- 7628 Sep, [facility] [place] [facility] [address] [id number] [place] [address]- 4712 Sep, [facility] [place] [facility] [address] [id number] [place] [address]- 7376 Sep, [facility] [place] [facility] [address] [id number] [place] [address]- 1955 Sep, [facility] [place] [facility] [address] [id number] [place] [address]- 5013 Sep, [facility] [place] [facility] [address] [id number] [place] [address]- 6209 Sep, [facility] [place] [facility] [address] [id number] [place] [address]- 8196 Sep, [facility] [place] [facility] [address] [facility] [id number] [place] [address]- 2340 Aug, [facility] [place] [facility] [address] [id number], [place] [address]- 9388 Aug, [facility] [place] [facility] [address] [facility] [id number], [place] [address]- 1001 Aug, [facility] [place] [facility] [address] [facility] [id number], [place] [address]- 0302 Aug, [facility] [place] [facility] [address] [facility] [id number], [place] [address]- 3118 Aug, [facility] [place] [facility] [address] [id number], [place] [address]- 8600 Aug, [facility] [place] [facility] [address] [facility] [id number], [place] [address]- 8103 Aug, [facility] [place] [facility] [address] [facility] [id number], [place] [address]- 5787 Aug, [facility] [place] [facility] [address] [facility] [id number], [place] [address]- 6186 Aug, [facility] [place] [facility] [address] [id number], [place] [address]- 8093 Aug, [facility] [id number], [place] [address]- 7617 Aug, [facility] [id number], [place] [address]- 8755 Aug, [facility] [id number], [place] [address]- 5265 Aug, [facility] [id number], [place] [address]- 6814 Aug, [facility] [id number] [place] [address]- 2690 Aug, [facility] [id number], [place] [address]- 3035 Aug, [facility] [id number], [place] [address]- 7182 Aug, [facility] [id number], [place] [address]- 9892 Jul, [facility] [id number], [place] [address]- 4389 Jun, [facility] [id number], [place] [address]- 3638 Aug, [facility] [id number], [place] [address]- 3207 Aug, [facility] [id number], [place] [address]- 8504 Aug, IMMUNIZATIONS No Known Immunizations SOCIAL HISTORY Never Assessed REASON FOR VISIT Requests return call PLAN OF CARE VITAL SIGNS MEDICATIONS Medication [...]
--- OUTSIDE RECORDS SUMMARY | 2018-05-03 19:57 | XMS REPORT ---
Author Author PIPPA DIMAS [facility] Address [address] [place] [address] Care Team Providers Care Slitter Helper Name Role Phone MADDIEArjun PIPPA Unavailable PROBLEMS Type Condition ICD9-CM Code FSP03-IK Code Onset Dates Condition Status SNOMED Code Problem Mixed hyperlipidemia E78.2 Active 530865758 Problem Stasis dermatitis without varicosities I87.2 Active 58046328 Problem Edema of both legs R60.0 Active 135155497 Problem Morbid (severe) obesity due to excess calories E66.01 Active 411389459 Problem Chronic pain syndrome G89.4 Active 392362267 Problem Dependence on supplemental oxygen Z99.81 Active 778750462729 Problem 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 Active 21422317 Problem Gastroesophageal reflux disease without esophagitis K21.9 Active 637725752 Problem Urge incontinence of urine N39.41 Active 42635119 Problem Restless legs syndrome G25.81 Active 421360048 Problem Essential hypertension I10 Active 23286036 Problem Chronic stasis dermatitis I83.10 Active 78054232 Problem Renal insufficiency N28.9 Active 253341516 Problem Acquired hypothyroidism E03.9 Active 264777717 Problem Lymphedema I89.0 Active 212697583 Problem Lumbar pain M54.5 Active 286521071 Problem Nocturnal hypoxia G47.34 Active 302724957 ALLERGIES No Information ENCOUNTERS Encounter Location Date Diagnosis [facility] [address] [facility] [id number] [address] March, [facility] [address] [address] 95[address] Feb, [facility] [address] [id number] [address] 9558 Jan, [facility] [id number] [place] [address] 91076- 8049 28 Jan, 2018 [facility] [id number] [place] [address] 30651- 1753 Jan, Acquired hypothyroidism E03.9 ; Morbid (severe) obesity due to excess calories E66.01 ; Body mass index (BMI) 70 or greater, adult Z68.45 ; Cellulitis of left anterior lower leg L03.116 ; Restless legs syndrome G25.81 ; Nocturnal hypoxia G47.34 and Dependence on supplemental oxygen Z99.81 [facility] [id number] [place] [address] 89774- 8489 Jan, [facility] [id number] [place] [address] 04881- 5905 12 Dec, 2017 [facility] [id number] [place] [address] 42412- 0742 Oct, [facility] [id number] [place] [address] 65733- 7805 07 Oct, 2017 [facility] [id number] [place] [address] 77767- 0255 Sep, [facility] [id number] [place] [address] 60858- 6260 16 Sep, 2017 [facility] [id number] [place] [address] 34560- 9336 16 Sep, 2017 Dental examination Z01.20 [facility] [id number] [place] [address] 28072- 4717 Sep, Morbid obesity due to excess calories E66.01 ; Body mass index (BMI) of 70 or greater in adult Z68.45 ; Stasis dermatitis without varicosities I87.2 ; Lymphedema I89.0 ; Renal insufficiency N28.9 ; Acquired hypothyroidism E03.9 ; Cellulitis L03.90 ; Bronchitis J40 and BMI 40.0-44.9, adult Z68.41 [facility] [id number] [place] [address] 71132- 9769 Aug, [facility] [address] [facility] [id number] [id number] Aug, Dental examination Z01.20 [facility] [id number] [place] [address] 58120- 6858 Aug, [facility] [address] [address]- 8750 26 Jul, 2017 [facility] [id number] [place] [address] 75335- 1679 Jul, [facility] [address] [facility] [id number] [place] [address] 84971- 5885 18 Jul, 2017 [facility] [id number] [place] [address] 38512- 5213 14 Jul, 2017 [facility] [id number] [place] [address] 13352- 4461 Jul, [facility] [id number] [place] [address] 33939- 5229 Jun, [facility] [id number] [place] [address] 77956- 2396 Jun, Dependence on nocturnal oxygen therapy Z99.81 ; Morbid obesity due to excess calories E66.01 and Bronchitis J40 [facility] [address]005[address]100[place] [address]- 3308 Jun, Restless legs syndrome G25.81 [facility] [address], [place] [address]- 6789 Jun, [facility] [id number] [place] [address] 40672- 4020 May, [facility] [id number] [place] [address] [id number] Apr, [facility] [address] [address] 7371 Apr, [facility] [id number] [place] [address] 62432- 1862 Apr, Essential hypertension I10 [facility] [id number] [place] [address] 21222- 5565 Apr, [facility] [id number] [place] [address] 63097- 4897 Apr, Chronic pain syndrome G89.4 and Urge incontinence of urine N39.41 [facility] [id number] [place] [address] 65702- 8838 March, Acquired hypothyroidism E03.9 [facility] [id number] [place] [address] 87586- 6668 March, [facility] [id number] [place] [address] 41969- 3820 March, [facility] [id number] [place] [address] 01454- 3530 March, Chronic pain syndrome G89.4 ; Essential [...] extremity L03.116 and Screening breast examination Z12.39 [facility] [id number] [place] [address] 18829- 8815 March, [facility] [id number] [place] [address] 47120- 9626 Feb, [facility] [id number] [place] [address] 14283- 8212 Feb, [facility] [id number] [place] [address] 96260- 6021 Feb, Chronic pain syndrome G89.4 [facility] [id number] [place] [address] 82971 -0115 Feb, Right foot pain M79.671 and Right foot sprain, initial encounter S93.601A [facility] [address]005[address], [place] [address]- 8970 Jan, [facility] [id number] [place] [address] 86265- 8964 Jan, [facility] [id number] [place] [address] 09152- 0841 Jan, Chronic pain syndrome G89.4 [facility] [id number] [place] [address] 30094- 4266 Jan, [facility] [id number] [place] [address] 36876- 6651 Dec, [facility] [id number] [place] [address] 01745- 7044 Dec, [facility] [id number] [place] [address] 20989- 4387 Dec, Pain in right knee M25.561 ; Pain in left knee M25.562 ; Essential hypertension I10 ; Chronic stasis dermatitis I83.10 ; Restless legs syndrome G25.81 ; Acquired hypothyroidism E03.9 ; Dependence on nocturnal oxygen therapy Z99.81 ; Mixed hyperlipidemia E78.2 ; Lymphedema I89.0 ; Chronic pain syndrome G89.4 ; Gastroesophageal reflux disease without esophagitis K21.9 and Urge incontinence of urine N39.41 [facility] [address] [address]- 3776 Nov, Mixed hyperlipidemia E78.2 [facility] [address], [place] [address]- 0040 Nov, [facility] [id number] [place] [address] 09910- 6141 Nov, [facility] [address]005[address]100[place], [place] [address]- 1655 Nov, [facility] [address] [id number] [address]1183 Nov, Stasis ulcer, left I83.029 [facility] [address], [place] [address]- 5726 Nov, [facility] [address], [place] [address]- 2422 Oct, [facility] [address], [place] [address]- 3990 Oct, [facility] [address], [place] [address]- 0525 Oct, [facility] [address], [place] [address]- 3217 Sep, [facility] [address], [place] [address]- 2919 Sep, [address] [id number] Sep, [facility] [address], [place] [address]- 7154 Aug, [facility] [address] [address]- 8595 Jul, [facility] [address], [place] [address]- 8152 Jul, [facility] [address], [place] [address]- 6716 Jul, [facility] [address], [place] [address]- 2721 Jul, [facility] [address], [place] [address]- 8144 Jul, Chest pain, unspecified type R07.9 ; Dyspnea on exertion R06.09 ; Essential hypertension I10 ; Hyperlipidemia, unspecified hyperlipidemia type E78.5 ; Left bundle branch block I44.7 and Hypothyroidism, unspecified type E03.9 [facility] [id number] [place] [address] 73940 -9587 Jun, Fever, unspecified fever cause R50.9 ; Headache, unspecified headache type R51 ; SOB (shortness of breath) R06.02 and Strep pharyngitis J02.0 [facility] [id number] [place] [address] 84333- 0634 Jun, [facility] [address] 65540- 5256 Jun, [facility] [address] 73705- 0027 Jun, Essential hypertension I10 ; Mixed hyperlipidemia E78.2 and Acquired hypothyroidism E03.9 [facility] [id number] [place] [address] 62938- 0506 Jun, Edema of both legs R60.0 ; Hypoxia R09.02 and Essential hypertension I10 [facility] [address] 68508- 0994 Jun, [place] [address] 07083- 2560 Jun, Edema of both legs R60.0 ; Hypoxia R09.02 and Essential hypertension I10 [facility] [id number] [place] [address] 04974- 6595 Jun, Essential hypertension I10 ; Dependence on supplemental oxygen Z99.81 and Edema of both legs R60.0 [facility] [id number] [place] [address] 14994- 6971 May, Lumbar pain M54.5 ; Essential hypertension I10 ; Edema of both legs R60.0 ; Stasis dermatitis without varicosities I87.2 and Left knee pain M25.562 [facility] [id number] [place] [address] 42434- 2376 May, [facility] [address] 28060- 9814 May, [facility] [address] [address]- 9600 May, [facility] [id number] [place] [address] 44235- 2035 Apr, [facility] [id number] [place] [address] 14091- 6655 Apr, [facility] [id number] [place] [address] 76714- 6265 March, [facility] [id number] [place] [address] 43383- 1631 March, Lymphedema I89.0 ; Morbid obesity due to excess calories E66.01 ; Alteration in mobility due to weakness R53.1 and Hypoxia R09.02 [facility] [id number] [place] [address] 06720- 4509 March, Abdominal wall mass R19.00 [facility] [id number] [place] [address] 27912- 5849 March, [facility] [id number] [place] [address] 07875- 5807 March, Abdominal wall mass R19.00 ; Lower abdominal pain R10.30 ; Alteration in mobility due to weakness R53.1 ; Hypoxia R09.02 and Lymphedema I89.0 [facility] [address], [place] [address]- 3038 Feb, [facility] [id number] [place] [address] 03554- 5721 Feb, Acquired hypothyroidism E03.9 ; Dependence on machine for supplemental oxygen V46.2 ; Restless legs syndrome G25.81 ; Essential hypertension I10 ; Renal insufficiency N28.9 ; Chronic stasis dermatitis I83.10 ; Mixed hyperlipidemia E78.2 ; Other chronic pain 338.29 and Cellulitis of left lower extremity L03.116 [facility] [id number] [place] [address] 60208- 5225 Feb, [facility] [id number] [place] [address] 97813- 1284 Feb, [facility] [address] 68856 -1938 Feb, Shortness of breath R06.02 and Bronchitis J40 [place] [address] 73892- 8111 Jan, Dependence on supplemental oxygen Z99.81 [facility] [address] 74652- 7524 Jan, [facility] [address] 43699- 5149 Dec, [place] [facility] [address] 60389- 3376 Dec, [facility] [address] 00937- 5402 Nov, Osteoarthritis of knees, bilateral M17.0 [facility] [address] 85769- 8003 Nov, Dependence on machine for supplemental oxygen V46.2 ; Nocturnal hypoxia G47.34 and Urgency of urination R39.15 [place] [facility] [address] 55962- 1738 Nov, [facility] [address] 55953- 5137 Oct, Pain in right knee M25.561 and Pain in left knee M25.562 [facility] [address] 33414- 5330 Oct, Acquired hypothyroidism E03.9 ; Renal insufficiency N28.9 and Chronic stasis dermatitis I83.10 [facility] [address] 99980- 2830 Oct, [facility] [id number] [place] [address] 29877- 7444 Sep, Cellulitis L03.90 ; Left knee pain M25.562 ; Essential hypertension I10 ; Lymphedema I89.0 ; Lumbar pain M54.5 ; Morbid obesity due to excess calories E66.01 and Renal insufficiency N28.9 [facility] [id number] [place] [address] 66772- 5636 Sep, Cellulitis L03.90 and Lymphedema I89.0 [facility] [id number] [place] [address] 49139- 1903 Sep, [facility] [address] 38623- 4133 Sep, [facility] [id number] [place] [address] 61075- 8511 Sep, Left knee pain M25.562 ; Lumbar pain M54.5 ; Restless legs syndrome G25.81 ; Acquired hypothyroidism E03.9 and Essential hypertension I10 [facility] [id number] [place] [address] 47248- 4778 Jul, [facility] [id number] [place] [address] 28511- 8299 Jun, [facility] [id number] [place] [address] 83800- 5487 May, [facility] [id number] [place] [address] 15567- 2129 May, [facility] [id number] [place] [address] 34358- 7030 May, Hypertension 997.91 ; Restless legs syndrome [RLS] 333.94 ; Unspecified venous (peripheral) insufficiency 459.81 ; Unspecified hypothyroidism 244.9 and Other chronic pain 338.29 [facility] [id number] [place] [address] 19576- 5810 Apr, [facility] [id number] [address]- 0451 Apr, [facility] [address] [place] [address] 16810- 2185 Apr, Restless legs syndrome [RLS] 333.94 ; Shortness of breath 786.05 ; Unspecified venous (peripheral) insufficiency 459.81 ; Unspecified hypothyroidism 244.9 ; Obesity, unspecified 278.00 ; Other chronic pain 338.29 ; Hypertension 997.91 and Hyperlipidemia 272.4 [facility] [id number] [address]- 4596 Feb, [facility] [id number] [place] [address] 74514- 8974 Feb, [facility] [id number] [place] [address] 15913- 8942 Jan, [facility] [id number] [place] [address] 550922- 3595 Jan, [facility] [id number] [address]- 5439 Jan, [facility] [id number] [place] [address] 81728- 2584 Jan, [facility] [address], [place] [address]- 2399 Jan, [facility] [address] [address]- 5255 Jan, [facility] [address] [address]- 3333 Jan, [facility] [id number] [place] [address] 95802- 5970 Jan, [facility] [address] 4637 Jan, [facility] [address] 8848 Jan, [facility] [place] [facility] [address] [id number] [place] [address]- 1999 Jan, [facility] [place] [facility] [address] [id number] [place] [address]- 1139 Jan, [facility] [place] [facility] [address] [id number] [place] [address]- 0903 Jan, [facility] [place] [facility] [address] [id number] [place] [address]- 8574 Jan, [facility] [place] [facility] [address] [id number] [place] [address]- 1836 Dec, [facility] [place] [facility] [address] [id number] [place] [address]- 5385 Dec, [facility] [place] [facility] [address] [id number] [place] [address]- 4854 Nov, [facility] [place] [facility] [address] [id number] [place] [address]- 5292 Nov, [facility] [place] [facility] [address] [id number] [place] [address]- 7283 Nov, [facility] [place] [facility] [address] [id number] [place] [address]- 7930 Nov, [facility] [place] [facility] [address] [id number], [place] [address]- 8864 Nov, [facility] [place] [facility] [address] [id number], [place] [address]- 1699 Nov, [facility] [place] [facility] [address] [id number] [place] [address]- 1258 Nov, [facility] [place] [facility] [address] [id number] [place] [address]- 1202 Nov, [facility] [place] [facility] [address] [id number] [place] [address]- 4534 Nov, [facility] [place] [facility] [address] [id number] [address]- 1055 14 Nov, 2014 [facility] [place] [facility] [address] [id number] [place] [address]- 7673 14 Nov, 2014 [facility] [place] [facility] [address] [id number], [place] [address]- 5351 Nov, [facility] [place] [facility] [address] [facility] [id number] [place] [address]- 0862 Nov, [facility] [place] [facility] [address] [id number] [place] [address]- 3008 Nov, [facility] [place] [facility] [address] [id number] [place] [address], [place] [address]- 7378 Nov, [facility] [place] [facility] [address] [id number] [place] [address]- 8640 Nov, [facility] [place] [facility] [address] [facility] [id number], [place] [address]- 0007 Oct, [facility] [place] [facility] [address] [id number] [place] [address]- 6044 Oct, [facility] [place] [facility] [address] [facility] [id number] [place] [address]- 2874 Sep, [facility] [place] [facility] [address] [facility] [id number] [address]- 5868 Aug, [facility] [place] [facility] [address] [id number] [address]- 0829 Aug, [facility] [place] [facility] [address] [id number] [address]- 9233 Aug, [facility] [place] [facility] [address] [id number] [place] [address]- 2613 Aug, [facility] [place] [facility] [address] [facility] [id number], [place] [address]- 2285 Aug, [facility] [place] [facility] [address] [facility] [id number] [address]- 2462 Aug, [facility] [place] [facility] [address] [id number] [place] [address]- 3422 Aug, [facility] [place] [facility] [address] [id number] [place] [address]- 8676 Aug, [facility] [place] [facility] [address] [id number] [place] [address]- 0412 Aug, [facility] [place] [facility] [address] [id number] [place] [address]- 7781 Aug, [facility] [place] [facility] [address] [id number] [place] [address]- 4827 Jun, [facility] [place] [facility] [address] [id number] [place] [address]- 5492 Jun, [facility] [place] [facility] [address] [id number] [place] [address]- 1803 Jun, [facility] [place] [facility] [address] [id number] [place] [address]- 4329 Jun, [facility] [place] [facility] [address] [id number] [place] [address]- 9135 Jun, [facility] [place] [facility] [address] [id number] [place] [address]- 5750 Jun, [facility] [place] [facility] [address] [id number] [place] [address]- 3477 Jun, [facility] [place] [facility] [address] [id number] [place] [address]- 6087 Jun, [facility] [place] [facility] [address] [id number] [place] [address]- 7604 Jun, [facility] [place] [facility] [address] [id number] [place] [address]- 0053 Jun, [facility] [place] [facility] [address] [id number] [place] [address]- 9408 May, [facility] [place] [facility] [address] [id number] [place] [address] May, [facility] [place] [facility] [address] [id number] [place] [address] May, [facility] [place] [facility] [address] [id number] [place] [address] May, [facility] [place] [facility] [address] [id number] [place] [address] May, [facility] [place] [facility] [address] [id number] [place] [address] May, [facility] [place] [facility] [address] [id number] [place] [address] May, [facility] [place] [facility] [address] [id number] [place] [address] May, [facility] [place] [facility] [address] [id number] [place] [address] May, 2013 [facility] [place] [facility] [address] [id number] [place] [address] May, 2013 [facility] [place] [facility] [address] [id number] [place] [address] May, [facility] [place] [facility] [address] [id number] [place] [address] May, 2013 [facility] [place] [facility] [address] [id number] [place] [address] May, [facility] [place] [facility] [address] [id number] [place] [address] May, 2013 [facility] [place] [facility] [address] [id number] [place] [address] May, [facility] [place] [facility] [address] [id number] [place] [address] May, [facility] [place] [facility] [address] [id number] [place] [address] May, 2013 [facility] [place] [facility] [address] [id number] [place] [address] May, [facility] [place] [facility] [address] [id number] [place] [address] Apr, [facility] [place] [facility] [address] [id number] [place] [address] Apr, [facility] [place] [facility] [address] [id number] [place] [address] Apr, [facility] [place] [facility] [address] [id number] [place] [address] Apr, [facility] [place] [facility] [address] [id number] [place] [address] Apr, [facility] [place] [facility] [address] [id number] [place] [address] Apr, [facility] [place] [facility] [address] [id number] [place] [address] Apr, [facility] [place] [facility] [address] [id number] [place] [address] Apr, [facility] [place] [facility] [address] [id number] [place] [address]- [address] Apr, [facility] [place] [facility] [address] [id number] [place] [address] Apr, [facility] [place] [facility] [address] [id number] [place] [address]- [address] Apr, [facility] [place] [facility] [address] [id number] [place] [address] Apr, [facility] [place] [facility] [address] [id number] [place] [address] March, [facility] [place] [facility] [address] [id number] [place] [address] March, [facility] [place] [facility] [address] [id number] [place] [address] March, [facility] [place] [facility] [address] [id number] [place] [address] March, [facility] [place] [facility] [address] [id number] [place] [address] March, [facility] [place] [facility] [address] [id number] [place] [address] March, [facility] [place] [facility] [address] [id number] [place] [address] March, [facility] [place] [facility] [address] [id number] [place] [address] March, [facility] [place] [facility] [address] [address] [id number] [place] [address] March, [facility] [place] [facility] [address] [id number] [place] [address] March[facility] [place] [facility] [address] [id number] [place] [address] 92[address] March, [facility] [place] [facility] [address] [id number] [place] [address] 7[address] Feb, [facility] [place] [facility] [address] [id number] [place] [address] 4767 Feb, [facility] [place] [facility] [address] [id number] [place] [address] 7102 Feb, [facility] [place] [facility] [address] [id number] [place] [address] 3096 Feb, [facility] [place] [facility] [address] [id number] [place] [address] Feb, [facility] [place] [facility] [address] [id number] [place] [address] 3320 Feb, [facility] [place] [facility] [address] [id number] [place] [address] 5995 Feb, [facility] [place] [facility] [address] [id number] [place] [address]- 4782 Feb, [facility] [place] [facility] [address] [id number] [place] [address]- 5251 Feb, [facility] [place] [facility] [address] [id number] [place] [address]- 0688 Feb, [facility] [place] [facility] [address] [id number] [place] [address]- 6801 Feb, [facility] [place] [facility] [address] [id number] [place] [address]- 3364 Feb, [facility] [place] [facility] [address] [id number] [place] [address]- 2243 Feb, [facility] [place] [facility] [address] [id number] [place] [address]- 9600 Feb, [facility] [place] [facility] [address] [id number] [place] [address]- 4880 Feb, [facility] [place] [facility] [address] [id number] [place] [address]- 8257 Feb, [facility] [place] [facility] [address] [id number] [place] [address]- 8484 Feb, [facility] [place] [facility] [address] [id number] [place] [address]- 1351 Feb, [facility] [place] [facility] [address] [id number] [place] [address]- 1141 Feb, [facility] [place] [facility] [address] [id number] [place] [address]- 2257 Feb, [facility] [place] [facility] [address] [id number] [place] [address]- 5817 Jan, [facility] [place] [facility] [address] [id number] [place] [address]- 1227 Jan, [facility] [place] [facility] [address] [id number] [place] [address]- 3089 Jan, [facility] [place] [facility] [address] [id number] [place] [address]- 5602 25 Jan, 2014 [facility] [place] [facility] [address] [id number] [place] [address]- 4464 24 Jan, 2014 [facility] [place] [facility] [address] [id number] [place] [address] 24 Jan, 2014 [facility] [place] [facility] [address] [id number] [place] [address]- 8649 18 Jan, 2014 [facility] [place] [facility] [address] [id number] [place] [address]- 7698 18 Jan, 2014 [facility] [place] [facility] [address] [id number] [place] [address]- 2048 14 Jan, 2014 [facility] [place] [facility] [address] [id number] [place] [address]- 8745 14 Jan, 2014 [facility] [place] [facility] [address] [id number] [place] [address]- 3131 Jan, [facility] [place] [facility] [address] [id number] [place] [address]- 7931 Jan, [facility] [place] [facility] [address] [id number] [place] [address]- 8402 05 Jan, 2014 [facility] [place] [facility] [address] [id number] [place] [address]- 8135 Jan, [facility] [place] [facility] [address] [id number] [place] [address]- 8703 Dec, [facility] [place] [facility] [address] [id number] [place] [address]- 7861 Dec, [facility] [place] [facility] [address] [id number] [place] [address]- 4925 Dec, [facility] [place] [facility] [address] [id number] [place] [address]- 0446 Dec, [facility] [place] [facility] [address] [id number] [place] [address]- 6295 Dec, [facility] [address] [id number] [place] [address]- 3028 Dec, [facility] [place] [facility] [address] [id number] [place] [address]- 6911 Dec, [facility] [place] [facility] [address] [id number] [place] [address]- 2320 Dec, [facility] [place] [facility] [address] [id number] [place] [address]- 7219 Dec, [facility] [place] [facility] [address] [id number] [place] [address]- 4482 Nov, [facility] [place] [facility] [address] [id number] [place] [address]- 3333 Nov, [facility] [place] [facility] [address] [id number] [place] [address]- 2001 Nov, [facility] [place] [facility] [address] [id number] [place] [address]- 6288 Nov, [facility] [place] [facility] [address] [id number] [place] [address]- 5559 Oct, [facility] [place] [facility] [address] [id number] [place] [address]- 9367 Oct, [facility] [place] [facility] [address] [id number] [place] [address]- 6734 Oct, [facility] [place] [facility] [address] [id number] [place] [address]- 2259 Oct, [facility] [place] [facility] [address] [id number] [place] [address]- 1835 Oct, [facility] [place] [facility] [address] [id number] [place] [address]- 8662 Oct, [facility] [place] [facility] [address] [id number] [place] [address]- 9685 Oct, [facility] [place] [facility] [address] [id number] [place] [address]- 9638 23 Oct, 2012 [facility] [address] [id number] [place] [address]- 5116 20 Oct, 2013 [facility] [address] [id number] [place] [address]36 19 Oct, 2013 [facility] [address] [id number] [place] [address]- 3096 19 Oct, 2013 [facility] [address] [id number] [place] [address]- 4959 18 Oct, 2013 [facility] [address] [id number] [place] [address] 18 Oct, 2013 [facility] [address] [id number] [place] [address]- 4823 17 Oct, 2013 [facility] [address] [id number] [place] [address]- 0647 17 Oct, 2013 [facility] [address] [id number] [place] [address]- 2356 17 Oct, 2013 [facility] [address] [id number] [place] [address]- 1934 17 Oct, 2013 [facility] [address] [id number] [place] [address]- 9773 17 Oct, 2013 [facility] [address] [id number] [place] [address]- 6461 17 Oct, 2013 [facility] [address] [id number] [place] [address]- 1624 11 Oct, 2013 [facility] [address] [id number] [place] [address]- 9345 11 Oct, 2013 [facility] [address] [id number] [place] [address]- 4909 27 Sep, 2013 [facility] [address] [id number] [place] [address]- 4754 Sep, [facility] [place] [facility] [address] [id number] [place] [address]- 6809 Sep, [facility] [place] [facility] [address] [id number] [place] [address]- 4600 Sep, [facility] [place] [facility] [address] [id number] [place] [address]- 3050 18 Sep, 2013 [facility] [place] [facility] [address] [id number] [place] [address]- 3675 Sep, [facility] [place] [facility] [address] [id number] [place] [address]- 7285 Sep, [facility] [place] [facility] [address] [id number] [place] [address]- 8076 Sep, [facility] [place] [facility] [address] [id number] [place] [address]- 6264 Sep, [facility] [place] [facility] [address] [id number] [place] [address]- 9516 Sep, [facility] [place] [facility] [address] [id number] [place] [address]- 0519 Sep, [facility] [place] [facility] [address] [id number] [address]- 3805 Sep, [facility] [place] [facility] [address] [id number], [place] [address]- 9896 Aug, [facility] [place] [facility] [address] [id number] [address]- 6988 Aug, [facility] [place] [facility] [address] [id number] [place] [address]- 8617 Aug, [facility] [place] [facility] [address] [id number] [place] [address]- 5047 Aug, [facility] [place] [facility] [address] [id number] [address]- 9376 Aug, [facility] [place] [facility] [address] [id number] [place] [address]- 6788 Aug, 2012 [facility] [place] [facility] [address] [id number] [place] [address]- 7835 Aug, 2012 [facility] [place] [facility] [address] [id number] [place] [address]- 6641 Aug, 2012 [facility] [place] [facility] [address] [id number] [place] [address]- 7039 16 Aug, 2012 [facility] [place] [facility] [address] [id number] [place] [address]- 0578 16 Aug, 2012 [facility] [place] [facility] [address] [id number] [place] [address]- 0548 10 Aug, 2012 [facility] [place] [facility] [address] [id number] [place] [address]- 3170 10 Aug, 2012 [facility] [place] [facility] [address] [id number] [place] [address]- 1166 08 Aug, 2012 [facility] [place] [facility] [address] [id number] [place] [address]- 2531 07 Aug, 2013 [facility] [place] [facility] [address] [id number] [place] [address]- 5552 04 Aug, 2013 [facility] [place] [facility] [address] [id number] [place] [address]- 2520 Aug, [facility] [place] [facility] [address] [id number] [place] [address]- 1324 Aug, [facility] [place] [facility] [address] [id number] [address]- 5565 Jul, [facility] [place] [facility] [address] [id number] [place] [address]- 2124 Jun, [facility] [place] [facility] [address] [id number] [place] [address]- 7553 Jun, [facility] [place] [facility] [address] [id number] [address]- 7075 May, [facility] [place] [facility] [address] [id number] [place] [address]- 1171 May, [facility] [place] [facility] [address] [id number] [place] [address]- 9651 Apr, [facility] [place] [facility] [address] [id number] [place] [address]- 8363 Apr, [facility] [place] [facility] [address] [id number] [place] [address]- 4108 Apr, [facility] [place] [facility] [address] [id number] [place] [address]- 4869 Apr, [facility] [place] [facility] [address] [id number] [place] [address]- 7622 Apr, [facility] [place] [facility] [address] [id number] [place] [address]- 9622 Apr, [facility] [place] [facility] [address] [id number] [place] [address]- 6385 07 Apr, 2013 [facility] [place] [facility] [address] [id number] [place] [address]- 8004 07 Apr, 2013 [facility] [place] [facility] [address] [id number] [place] [address]- 6277 Apr, [facility] [place] [facility] [address] [id number] [place] [address]- 8450 Apr, [facility] [place] [facility] [address] [id number] [place] [address]- 6630 Apr, [facility] [place] [facility] [address] [id number] [place] [address]- 8330 March, [facility] [place] [facility] [address] [id number] [place] [address]- 6446 March, [facility] [place] [facility] [address] [id number] [place] [address]- 5047 March, [facility] [place] [facility] [address] [id number] [place] [address]- 9811 March, [facility] [address] [id number] [place] [address]- 0809 March, [facility] [address] [id number] [place] [address]- 0806 Feb, [facility] [address] [id number] [place] [address]- 1860 Feb, [facility] [address] [id number] [place] [address]- 2872 Jan, [facility] [address] [id number] [place] [address]- 5825 Jan, [facility] [address] [id number] [place] [address]- 7090 Jan, [facility] [address] [id number] [place] [address]- 9746 Jan, [facility] [address] [id number] [place] [address]- 7050 Jan, [facility] [address] [id number] [place] [address]- 9832 Dec, [facility] [place] [facility] [address] [id number] [place] [address]- 6476 Dec, [facility] [address] [id number], [place] [address]- 8825 Nov, [facility] [place] [facility] [address] [id number], [place] [address]- 3608 Nov, [facility] [place] [facility] [address] [id number] [place] [address]- 9396 Nov, [facility] [place] [facility] [address] [id number] [place] [address]- 2166 Nov, [facility] [place] [facility] [address] [id number] [place] [address]- 0746 Nov, [facility] [place] [facility] [address] [id number] [place] [address]- 1457 14 Nov, 2012 [facility] [address] [id number] [place] [address]- 8308 14 Nov, 2012 [facility] [address] [id number] [place] [address]- 7479 11 Nov, 2012 [facility] [address] [id number] [place] [address]- 8037 Nov, [facility] [address] [id number] [place] [address]- 6633 Nov, [facility] [address] [id number] [place] [address]- 6578 Nov, [facility] [address] [id number] [place] [address]- 5708 Oct, [facility] [address] [id number] [place] [address]- 0069 Oct, [facility] [address] [id number] [place] [address]- 3565 Sep, [facility] [address] [id number] [place] [address]- 4994 Sep, [facility] [address] [id number] [place] [address]- 9826 Sep, [facility] [address] [id number] [place] [address]- 6355 Sep, [facility] [address] [id number] [place] [address]- 2992 Sep, [facility] [address] [id number] [place] [address]- 9574 Sep, [facility] [address] [id number] [place] [address]- 5160 Sep, [facility] [address] [id number] [place] [address]- 5129 Sep, [facility] [place] [facility] [address] [id number] [place] [address]- 4035 Sep, [facility] [place] [facility] [address] [id number] [place] [address]- 5806 Sep, [facility] [place] [facility] [address] [id number] [place] [address]- 6641 Sep, [facility] [place] [facility] [address] [id number] [place] [address]- 9072 Sep, [facility] [place] [facility] [address] [id number] [place] [address]- 6885 Sep, [facility] [place] [facility] [address] [id number] [place] [address]- 5419 Sep, [facility] [place] [facility] [address] [facility] [id number] [place] [address]- 0995 Aug, [facility] [place] [facility] [address] [id number], [place] [address]- 3210 Aug, [facility] [place] [facility] [address] [facility] [id number], [place] [address]- 9476 Aug, [facility] [place] [facility] [address] [facility] [id number] [address]- 5744 Aug, [facility] [place] [facility] [address] [facility] [id number], [place] [address]- 6385 Aug, [facility] [place] [facility] [address] [id number], [place] [address]- 5775 Aug, [facility] [place] [facility] [address] [facility] [id number], [place] [address]- 7422 Aug, [facility] [place] [facility] [address] [facility] [id number], [place] [address]- 2582 Aug, [facility] [place] [facility] [address] [facility] [id number], [place] [address]- 6197 Aug, [facility] [place] [facility] [address] [id number], [place] [address]- 8391 Aug, [facility] [id number], [place] [address]- 8499 Aug, [facility] [id number], [place] [address]- 6887 Aug, [facility] [id number], [place] [address]- 4848 Aug, [facility] [id number], [place] [address]- 9269 Aug, [facility] [id number] [place] [address]- 1351 Aug, [facility] [address] [id number] [place] [address]78- 5342 Aug, [facility] [id number], [place] [address]- 2698 Aug, [facility] [id number], [place] [address]- 1523 Jul, [facility] [id number], [place] [address]- 6276 Jun, [facility] [address]00565100[place] [address]- 2827 Aug, [facility] [id number], [place] [address]- 6308 Aug, [facility] [id number], [place] [address]- 6858 Aug, IMMUNIZATIONS No Known Immunizations SOCIAL HISTORY Never Assessed REASON FOR VISIT refax order PLAN OF CARE VITAL SIGNS MEDICATIONS Medication Instructions Dosage Frequency Start Date End Date Duration Status Incontinence Supplies - Depends brief-size requested by patient 8h Apr Active RESULTS No Results PROCEDURES No [...]
--- OUTSIDE RECORDS SUMMARY | 2018-05-03 19:58 | XMS REPORT ---
Author Author PIPPA DIMAS [facility] Address [address] [place] [address] Care Team Providers Care Director Agricultural Services Name Role Phone MADDIEArjun PIPPA Unavailable PROBLEMS Type Condition ICD9-CM Code QVQ69-QU Code Onset Dates Condition Status SNOMED Code Problem Mixed hyperlipidemia E78.2 Active 144906640 Problem Stasis dermatitis without varicosities I87.2 Active 01091575 Problem Edema of both legs R60.0 Active 029907073 Problem Morbid (severe) obesity due to excess calories E66.01 Active 726835646 Problem Chronic pain syndrome G89.4 Active 090006508 Problem Dependence on supplemental oxygen Z99.81 Active 385298237021 Problem 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 Active 65337034 Problem Gastroesophageal reflux disease without esophagitis K21.9 Active 099718445 Problem Urge incontinence of urine N39.41 Active 91951007 Problem Restless legs syndrome G25.81 Active 318359182 Problem Essential hypertension I10 Active 43459767 Problem Chronic stasis dermatitis I83.10 Active 05940615 Problem Renal insufficiency N28.9 Active 942716668 Problem Acquired hypothyroidism E03.9 Active 632787961 Problem Lymphedema I89.0 Active 936176982 Problem Lumbar pain M54.5 Active 192266106 Problem Nocturnal hypoxia G47.34 Active [id number] ALLERGIES No Information ENCOUNTERS Encounter Location Date Diagnosis [facility] [place] [address] [facility] [id number], [place] [address] Apr, [facility] [place] [address], [place] [address] 6[address] Apr, [facility] [place] [address] [id number], [place] [address] 0[address] Feb, [facility] [place] [address] [id number], [place] [address] 6626 Jan, [facility] [place] [address], [place] [address] 97[address] Jan, [facility] [place] [id number] [place] [address] 65224- 9027 Jan, Acquired hypothyroidism E03.9 ; Morbid (severe) obesity due to excess calories E66.01 ; Body mass index (BMI) 70 or greater, adult Z68.45 ; Cellulitis of left anterior lower leg L03.116 ; Restless legs syndrome G25.81 ; Nocturnal hypoxia G47.34 and Dependence on supplemental oxygen Z99.81 [facility] [place] [id number] [place] [address] 24754- 1559 Jan, [facility] [place] [id number] [place] [address] 03996- 0083 Dec, [facility] [place] [id number] [place] [address] 47374- 9122 15 Oct, 2017 [facility] [place] [id number] [place] [address] 94746- 9252 07 Oct, 2017 [facility] [place] [id number] [place] [address] 32794- 7239 Sep, [facility] [place] [id number] [place] [address] 17690- 0954 16 Sep, 2017 [facility] [place] [id number] [place] [address] 39850- 6286 16 Sep, 2017 Dental examination Z01.20 [facility] [place] [address] [id number], [place] [address] 9255 Sep, Morbid obesity due to excess calories E66.01 ; Body mass index (BMI) of 70 or greater in adult Z68.45 ; Stasis dermatitis without varicosities I87.2 ; Lymphedema I89.0 ; Renal insufficiency N28.9 ; Acquired hypothyroidism E03.9 ; Cellulitis L03.90 ; Bronchitis J40 and BMI 40.0-44.9, adult Z68.41 [facility] [place] [address] [facility] [id number], [place] [address] Aug, [facility] [address] [id number] Aug, Dental examination Z01.20 [facility] [place] [address], [place] [address]- 7296 Aug, [facility] [place] [id number] [place] [address] 04970- 2481 Jul, [facility] [place] [id number] [place] [address] 37606- 4352 Jul, [facility] [place] [id number] [place] [address] 49932- 1069 18 Jul, 2017 [facility] [place] [id number] [place] [address] 14210- 5769 Jul, [facility] [place] [id number] [place] [address] 00503- 5638 Jul, [facility] [place] [id number] [place] [address] 13362- 7166 Jun, [facility] [place] [id number] [place] [address] 48595- 9351 Jun, Dependence on nocturnal oxygen therapy Z99.81 ; Morbid obesity due to excess calories E66.01 and Bronchitis J40 [facility] [place] [id number] [place] [address] 67244- 0367 Jun, Restless legs syndrome G25.81 [facility] [place] [address], [place] [address]- 1474 Jun, [facility] [place] [id number] [place] [address] 99656- 9498 May, [facility] [id number] [place] [address] [id number] Apr, [facility] [place] [id number] [place] [address] 28808- 0419 Apr, [facility] [place] [address], [place] [address] 1370 Apr, Essential hypertension I10 [place] [id number] [place] [address] 74794- 1640 Apr, [place] [id number] [place] [address] 48843- 0406 Apr, Chronic pain syndrome G89.4 and Urge incontinence of urine N39.41 [place] [id number] [place] [address] 69454- 8625 March, Acquired hypothyroidism E03.9 [place] [id number] [place] [address] 36206- 0137 March, [place] [id number] [place] [address] 01091- 1879 March, [place] [id number] [place] [address] 11644- 0625 March, Chronic pain syndrome G89.4 ; Essential [...] extremity L03.116 and Screening breast examination Z12.39 [place] [address], [place] [address]- 4332 March, [place] [id number] [place] [address] 12106- 7720 Feb, [place] [id number] [place] [address] 86714- 2488 Feb, [place] [address], [place] [address]- 1340 Feb, Chronic pain syndrome G89.4 [facility] [address], [place] [address]38 Feb, Right foot pain M79.671 and Right foot sprain, initial encounter S93.601A [facility] [place] [address], [place] [address]- 0520 Jan, [facility] [place] [id number] [place] [address] 21322- 8745 Jan, [facility] [place] [id number] [place] [address] 97508- 8075 Jan, Chronic pain syndrome G89.4 [facility] [place] [id number] [place] [address] 22156- 3042 Jan, [facility] [place] [id number] [place] [address] 59501- 3463 Dec, [facility] [place] [id number] [place] [address] 20785- 8342 Dec, [facility] [place] [id number] [place] [address] 99302- 3452 Dec, Pain in right knee M25.561 ; Pain in left knee M25.562 ; Essential hypertension I10 ; Chronic stasis dermatitis I83.10 ; Restless legs syndrome G25.81 ; Acquired hypothyroidism E03.9 ; Dependence on nocturnal oxygen therapy Z99.81 ; Mixed hyperlipidemia E78.2 ; Lymphedema I89.0 ; Chronic pain syndrome G89.4 ; Gastroesophageal reflux disease without esophagitis K21.9 and Urge incontinence of urine N39.41 [facility] [place] [address], [place] [address]- 9663 Nov, Mixed hyperlipidemia E78.2 [facility] [place] [id number] [place] [address] 73110- 4247 Nov, [facility] [place] [address], [place] [address]- 0597 Nov, [facility] [place] [address] [place] [address]- 4978 Nov, [facility] [id number], [place] [address]3 Nov, Stasis ulcer, left I83.029 [facility] [place] [address] [facility] [id number] [place] [address]- 6151 Nov, [facility] [place] [address], [place] [address]- 7735 Oct, [facility] [place] [address] [id number] [place] [address]- 6119 Oct, [facility] [place] [address] [place] [address]- 5246 Oct, [facility] [place] [address] [place] [address]- 8799 Sep, [facility] [place] [address], [place] [address]- 9405 Sep, [facility] [address] [facility] [id number] [id number] Sep, [facility] [place] [address], [place] [address]- 6184 Aug, [facility] [place] [id number], [place] [address]- 8730 Jul, [facility] [place] [id number], [place] [address]- 4122 Jul, [facility] [place] [id number], [place] [address]- 8031 Jul, [facility] [place] [address], [place] [address]- 4354 Jul, [facility] [place] [id number], [place] [address]- 0651 14 Jul, 2016 Chest pain, unspecified type R07.9 ; Dyspnea on exertion R06.09 ; Essential hypertension I10 ; Hyperlipidemia, unspecified hyperlipidemia type E78.5 ; Left bundle branch block I44.7 and Hypothyroidism, unspecified type E03.9 [facility] [address] [address] -[address]36 Jun, Fever, unspecified fever cause R50.9 ; Headache, unspecified headache type R51 ; SOB (shortness of breath) R06.02 and Strep pharyngitis J02.0 [facility] [place] [address] 95744- 0470 Jun, [facility] [place] [address] 43111- 3950 Jun, [place] [address] 87356- 0387 Jun, Essential hypertension I10 ; Mixed hyperlipidemia E78.2 and Acquired hypothyroidism E03.9 [facility] [place] [address] 36591- 9674 Jun, Edema of both legs R60.0 ; Hypoxia R09.02 and Essential hypertension I10 [place] [address] 13012- 1594 Jun, [facility] [place] [address] 36048- 1341 Jun, Edema of both legs R60.0 ; Hypoxia R09.02 and Essential hypertension I10 [place] [address] 00535- 5216 Jun, Essential hypertension I10 ; Dependence on supplemental oxygen Z99.81 and Edema of both legs R60.0 [place] [address] 23044- 5409 May, Lumbar pain M54.5 ; Essential hypertension I10 ; Edema of both legs R60.0 ; Stasis dermatitis without varicosities I87.2 and Left knee pain M25.562 [place] [address] 12690- 8177 May, [facility] [place] [address], [place] [address]- 8273 May, [facility] [place] [address], [place] [address]- 8221 May, [facility] [place] [address], [place] [address]- 5296 Apr, [facility] [place] [id number] [place] [address] 05695- 2236 Apr, [facility] [place] [address], [place] [address]- 6251 March, [facility] [place] [id number] [place] [address] 97509- 7282 March, Lymphedema I89.0 ; Morbid obesity due to excess calories E66.01 ; Alteration in mobility due to weakness R53.1 and Hypoxia R09.02 [facility] [place] [address], [place] [address]- 2045 March, Abdominal wall mass R19.00 [facility] [place] [address], [place] [address]- 2602 March, [facility] [place] [address], [place] [address]- 6185 March, Abdominal wall mass R19.00 ; Lower abdominal pain R10.30 ; Alteration in mobility due to weakness R53.1 ; Hypoxia R09.02 and Lymphedema I89.0 [facility] [place] [address], [place] [address]- 8264 Feb, [facility] [place] [address], [place] [address]- 4609 Feb, Acquired hypothyroidism E03.9 ; Dependence on machine for supplemental oxygen V46.2 ; Restless legs syndrome G25.81 ; Essential hypertension I10 ; Renal insufficiency N28.9 ; Chronic stasis dermatitis I83.10 ; Mixed hyperlipidemia E78.2 ; Other chronic pain 338.29 and Cellulitis of left lower extremity L03.116 [place] [id number] [place] [address] 37259- 3680 Feb, [place] [id number] [place] [address] 53702- 8603 Feb, [facility] [id number] [place] [address] 01818 -3744 Feb, Shortness of breath R06.02 and Bronchitis J40 [place] [id number] [place] [address] 85399- 2510 Jan, Dependence on supplemental oxygen Z99.81 [place] [address] 53232- 0780 Jan, [place] [address] 10804- 0094 Dec, [place] [address] 37434- 9665 Dec, [place] [id number] [place] [address] 28280- 9254 Nov, Osteoarthritis of knees, bilateral M17.0 [place] [id number] [place] [address] 26480- 8818 Nov, Dependence on machine for supplemental oxygen V46.2 ; Nocturnal hypoxia G47.34 and Urgency of urination R39.15 [place] [id number] [place] [address] 42963- 4733 Nov, [place] [id number] [place] [address] 44283- 2760 Oct, Pain in right knee M25.561 and Pain in left knee M25.562 [place] [id number] [place] [address] 35848- 4355 Oct, Acquired hypothyroidism E03.9 ; Renal insufficiency N28.9 and Chronic stasis dermatitis I83.10 [place] [id number] [place] [address] 18365- 3196 Oct, [place] [address] 28047- 1217 Sep, Cellulitis L03.90 ; Left knee pain M25.562 ; Essential hypertension I10 ; Lymphedema I89.0 ; Lumbar pain M54.5 ; Morbid obesity due to excess calories E66.01 and Renal insufficiency N28.9 [place] [address] 91815- 3776 Sep, Cellulitis L03.90 and Lymphedema I89.0 [place] [address] 19737- 7472 Sep, [place] [address] 72512- 4020 Sep, [place] [address] 09852- 2494 Sep, Left knee pain M25.562 ; Lumbar pain M54.5 ; Restless legs syndrome G25.81 ; Acquired hypothyroidism E03.9 and Essential hypertension I10 [place] [id number] [place] [address] 96808- 4446 Jul, [place] [id number] [place] [address] 23795- 4555 Jun, [place] [id number] [place] [address] 40009- 3544 May, [place] [id number] [place] [address] 46935- 3025 May, [place] [id number] [place] [address] 90860- 9794 May, Hypertension 997.91 ; Restless legs syndrome [RLS] 333.94 ; Unspecified venous (peripheral) insufficiency 459.81 ; Unspecified hypothyroidism 244.9 and Other chronic pain 338.29 [place] [id number] [address]- 1231 Apr, [facility] [place] [id number] [place] [address] 87358- 4121 Apr, [facility] [place] [address], [place] [address]- 5711 Apr, Restless legs syndrome [RLS] 333.94 ; Shortness of breath 786.05 ; Unspecified venous (peripheral) insufficiency 459.81 ; Unspecified hypothyroidism 244.9 ; Obesity, unspecified 278.00 ; Other chronic pain 338.29 ; Hypertension 997.91 and Hyperlipidemia 272.4 [facility] [place] [id number] [place] [address] 62820- 6992 Feb, [facility] [place] [id number] [place] [address] 04749- 6019 Feb, [facility] [place] [id number] [place] [address] 49416- 7064 Jan, [facility] [place] [id number], [place] [address]- 8985 30 Jan, 2015 [facility] [place] [id number] [place] [address] 77868- 6501 Jan, [facility] [place] [address], [place] [address]- 2803 Jan, [facility] [place] [id number] [place] [address] 84065- 0526 Jan, [facility] [place] [address], [place] [address]- 4840 Jan, [facility] [place] [id number] [place] [address] 137215- 9809 Jan, [facility] [place] [id number] [address]- 7471 Jan, [facility] [place] [id number] [place] [address] 348703- 4021 Jan, [facility] [place] [facility] [address] [id number] [place] [address]- 2912 Jan, [facility] [place] [facility] [address] [id number] [place] [address]- 9837 Jan, [facility] [place] [facility] [address] [id number] [place] [address]- 3204 Jan, [facility] [place] [facility] [address] [id number] [place] [address]- 3441 Jan, [facility] [place] [facility] [address] [id number] [place] [address]- 1858 Jan, [facility] [place] [facility] [address] [id number] [place] [address]- 8983 Dec, [facility] [place] [facility] [address] [id number] [place] [address] Dec, [facility] [place] [facility] [address] [id number] [place] [address] Nov, [facility] [place] [facility] [address] [id number] [place] [address] Nov, [facility] [place] [facility] [address] [id number] [place] [address] Nov, [facility] [place] [facility] [address] [id number] [place] [address] Nov, [facility] [place] [facility] [address] [id number], [place] [address] Nov, [facility] [place] [facility] [address] [id number] [place] [address] Nov, [facility] [place] [facility] [address] [id number] [place] [address] Nov, [facility] [place] [facility] [address] [id number] [place] [address] Nov, [facility] [place] [facility] [address] [id number], [place] [address] Nov, [facility] [place] [facility] [address] [id number] [place] [address] Nov, [facility] [place] [facility] [address] [id number], [place] [address] Nov, [facility] [place] [facility] [address] [facility] [id number] [place] [address] Nov, [facility] [place] [facility] [address] [id number] [place] [address] Nov, [facility] [place] [facility] [address] [id number] [place] [address] Nov, [facility] [place] [facility] [address] [id number] [place] [address] Nov, [facility] [place] [facility] [address] [facility] [id number], [place] [address] Nov, [facility] [place] [facility] [address] [id number], [place] [address] Oct, [facility] [place] [facility] [address] [id number] [place] [address] Oct, [facility] [place] [facility] [address] [facility] [id number], [place] [address] Sep, [facility] [place] [facility] [address] [id number], [place] [address] Aug, [facility] [place] [facility] [address] [id number], [place] [address] Aug, [facility] [place] [facility] [address] [id number], [place] [address] Aug, [facility] [place] [facility] [address] [facility] [id number], [place] [address] Aug, [facility] [place] [facility] [address] [facility] [id number], [place] [address] Aug, [facility] [place] [facility] [address] [id number] [place] [address] 6465 Aug, [facility] [place] [facility] [address] [id number] [place] [address] 9024 Aug, [facility] [place] [facility] [address] [id number] [place] [address]- [address] Aug, [facility] [place] [facility] [address] [id number] [place] [address]- 0654 Aug, [facility] [place] [facility] [address] [id number] [place] [address]- 1669 Aug, [facility] [place] [facility] [address] [id number] [place] [address]- 0038 Jun, [facility] [place] [facility] [address] [id number] [place] [address]- 5542 Jun, [facility] [place] [facility] [address] [id number] [place] [address]- 0284 Jun, [facility] [place] [facility] [address] [id number] [place] [address]- 1017 Jun, [facility] [place] [facility] [address] [id number] [place] [address]- 4977 Jun, [facility] [place] [facility] [address] [id number] [place] [address]- 8233 Jun, [facility] [place] [facility] [address] [id number] [place] [address]- 1698 Jun, [facility] [place] [facility] [address] [id number] [place] [address]- 5506 Jun, [facility] [place] [facility] [address] [id number] [place] [address]- 8234 Jun, [facility] [place] [facility] [address] [id number] [place] [address]- 5315 Jun, [facility] [place] [facility] [address] [id number] [place] [address]- 2689 May, [facility] [place] [facility] [address] [id number] [place] [address]- 5148 May, [facility] [place] [facility] [address] [id number] [place] [address]- 1799 May, [facility] [place] [facility] [address] [id number] [place] [address]- 7468 May, [facility] [place] [facility] [address] [id number] [place] [address]- 4163 May, [facility] [place] [facility] [address] [id number] [place] [address]- 2801 May, [facility] [place] [facility] [address] [id number] [place] [address]- 8079 May, [facility] [place] [facility] [address] [id number] [place] [address]- 5324 May, [facility] [place] [facility] [address] [id number] [place] [address]- 2766 May, [facility] [place] [facility] [address] [id number] [place] [address]- 6355 May, [facility] [place] [facility] [address] [id number] [place] [address]- 8898 May, [facility] [place] [facility] [address] [id number] [place] [address]- 6531 May, [facility] [place] [facility] [address] [id number] [place] [address]- 4771 May, [facility] [place] [facility] [address] [id number] [place] [address]- 6806 May, [facility] [place] [facility] [address] [id number] [place] [address]- 3332 May, [facility] [place] [facility] [address] [id number] [place] [address]- 1229 May, 2013 [facility] [place] [facility] [address] [id number] [place] [address]- 1964 May, [facility] [place] [facility] [address] [id number] [place] [address]- 7566 May, [facility] [place] [facility] [address] [id number] [place] [address]- 1067 Apr, [facility] [place] [facility] [address] [id number] [place] [address]- 9655 Apr, [facility] [place] [facility] [address] [id number] [place] [address]- 6512 Apr, [facility] [place] [facility] [address] [id number] [place] [address]- 5812 Apr, [facility] [place] [facility] [address] [id number] [place] [address]- 0132 Apr, [facility] [place] [facility] [address] [id number] [place] [address]- 1590 Apr, [facility] [place] [facility] [address] [id number] [place] [address]- 4494 Apr, [facility] [place] [facility] [address] [id number] [place] [address]- 8021 Apr, [facility] [place] [facility] [address] [id number] [place] [address]- 4726 Apr, [facility] [place] [facility] [address] [id number] [place] [address]- 0218 Apr, [facility] [place] [facility] [address] [id number] [place] [address]- 6467 Apr, [facility] [place] [facility] [address] [id number] [place] [address]- 8620 Apr, [facility] [place] [facility] [address] [id number] [place] [address]- 1319 March, [facility] [place] [facility] [address] [id number] [place] [address]- 4742 March, [facility] [place] [facility] [address] [id number] [place] [address]- 2926 March, [facility] [place] [facility] [address] [id number] [place] [address]- 0229 March, [facility] [place] [facility] [address] [id number] [place] [address] March, [facility] [place] [facility] [address] [id number] [place] [address]- 0040 March, [facility] [place] [address] [id number] [place] [address]- 5882 March, [facility] [place] [facility] [address] [id number] [place] [address]- 2827 March, [facility] [address] [id number] [place] [address]- 5978 March, [facility] [place] [facility] [address] [id number] [place] [address]- 5020 March, [facility] [place] [facility] [address] [id number] [place] [address]- 4215 March, [facility] [place] [facility] [address] [id number] [place] [address]- 3087 Feb, [facility] [place] [facility] [address] [id number] [place] [address]- 6276 Feb, [facility] [place] [facility] [address] [id number] [place] [address]- 5137 Feb, [facility] [place] [facility] [address] [id number] [place] [address]- 3463 Feb, [facility] [place] [facility] [address] [id number] [place] [address]- 9443 Feb, [facility] [place] [facility] [address] [id number] [place] [address]- 3021 Feb, [facility] [place] [facility] [address] [id number] [place] [address]- 5704 Feb, [facility] [place] [facility] [address] [id number] [place] [address]- 2042 Feb, [facility] [place] [facility] [address] [id number] [place] [address]- 5321 Feb, [facility] [place] [facility] [address] [id number] [place] [address]- 5218 Feb, [facility] [place] [facility] [address] [id number] [place] [address]- 6929 Feb, [facility] [place] [facility] [address] [id number] [place] [address]- 2699 Feb, [facility] [place] [facility] [address] [id number] [place] [address]- 1661 Feb, [facility] [place] [facility] [address] [id number] [place] [address]- 9726 Feb, [facility] [place] [facility] [address] [id number] [place] [address]- 1081 Feb, [facility] [place] [facility] [address] [id number] [place] [address]- 2636 Feb, [facility] [place] [facility] [address] [id number] [place] [address]- 9881 Feb, [facility] [place] [facility] [address] [id number] [place] [address]- 8008 Feb, [facility] [place] [facility] [address] [id number] [place] [address]- 7055 Feb, [facility] [place] [facility] [address] [id number] [place] [address]- 0866 Feb, [facility] [place] [facility] [address] [id number] [place] [address]- 2559 Jan, [facility] [place] [facility] [address] [id number] [place] [address]- 3734 Jan, [facility] [place] [facility] [address] [id number] [place] [address]- 3670 25 Jan, 2014 [facility] [place] [facility] [address] [id number] [place] [address]- 4420 Jan, [facility] [place] [facility] [address] [id number] [place] [address]- 4583 Jan, [facility] [place] [facility] [address] [id number] [place] [address]- 4085 Jan, [facility] [place] [facility] [address] [id number] [place] [address]- 0201 18 Jan, 2014 [facility] [place] [facility] [address] [id number] [place] [address]- 2796 18 Jan, 2014 [facility] [place] [facility] [address] [id number] [place] [address]- 9499 Jan, [facility] [place] [facility] [address] [id number] [place] [address]- 5371 14 Jan, 2014 [facility] [place] [facility] [address] [id number] [place] [address]- 0092 Jan, [facility] [place] [facility] [address] [id number] [place] [address]- 7045 Jan, [facility] [place] [facility] [address] [id number] [place] [address]- 1655 Jan, [facility] [place] [facility] [address] [id number] [place] [address]- 3855 Jan, [facility] [place] [facility] [address] [id number] [place] [address]- 8742 Dec, [facility] [place] [facility] [address] [id number] [place] [address]- 3403 Dec, [facility] [place] [facility] [address] [id number] [place] [address]- 5397 Dec, [facility] [place] [facility] [address] [id number] [place] [address]- 9500 Dec, [facility] [place] [facility] [address] [id number] [place] [address]- 1055 Dec, [facility] [place] [facility] [address] [id number] [place] [address]- 0676 Dec, [facility] [place] [facility] [address] [id number] [place] [address]- 2456 Dec, [facility] [place] [facility] [address] [id number] [place] [address]- 9192 Dec, [facility] [place] [facility] [address] [id number] [place] [address]- 7422 Dec, [facility] [place] [facility] [address] [id number] [place] [address]- 4777 Nov, [facility] [place] [facility] [address] [id number] [place] [address]- 6237 Nov, [facility] [place] [facility] [address] [id number] [place] [address]- 2618 Nov, [facility] [place] [facility] [address] [id number] [place] [address]- 0383 Nov, [facility] [place] [facility] [address] [id number] [place] [address]- 4020 Oct, [facility] [place] [facility] [address] [id number] [place] [address]- 8185 Oct, [facility] [place] [facility] [address] [id number] [place] [address]- 1392 Oct, [facility] [place] [facility] [address] [id number] [place] [address]- 5724 Oct, [facility] [place] [facility] [address] [id number] [place] [address]- 0173 Oct, [facility] [place] [facility] [address] [id number] [place] [address]- 1691 Oct, [facility] [place] [facility] [address] [id number] [place] [address]- 9309 23 Oct, 2012 [facility] [address] [id number] [place] [address]- 1706 23 Oct, 2013 [facility] [address] [id number] [place] 20 Oct, 2013 [facility] [address] [id number] [place] [address]- 5556 19 Oct, 2012 [facility] [address] [id number] [place] [address]- 9855 19 Oct, 2013 [facility] [address] [id number] [place] 3057 18 Oct, 2013 [facility] [address] [id number] [place] [address]- 0944 18 Oct, 2013 [facility] [address] [id number] [place] [address]- 7754 17 Oct, 2013 [facility] [address] [id number] [place] [address]- 3052 17 Oct, 2013 [facility] [address] [id number] [place] [address]- 2182 17 Oct, 2013 [facility] [address] [id number] [place] [address]- 2462 17 Oct, 2013 [facility] [address] [id number] [place] [address]- 0838 17 Oct, 2013 [facility] [address] [id number] [place] [address]- 1581 17 Oct, 2013 [facility] [address] [id number] [place] [address]- 4893 11 Oct, 2013 [facility] [address] [id number] [place] [address]- 0806 11 Oct, 2013 [facility] [address] [id number] [place] [address]- 5565 Sep, [facility] [place] [facility] [address] [id number] [place] [address]- 7383 Sep, [facility] [place] [facility] [address] [id number] [place] [address]- 3777 Sep, [facility] [place] [facility] [address] [id number] [place] [address]- 4014 Sep, [facility] [place] [facility] [address] [id number] [place] [address]- 0712 Sep, [facility] [place] [facility] [address] [id number] [place] [address]- 0474 Sep, [facility] [place] [facility] [address] [id number] [place] [address]- 6347 Sep, [facility] [place] [facility] [address] [id number] [place] [address]- 9127 Sep, [facility] [place] [facility] [address] [id number] [place] [address]- 4485 Sep, [facility] [place] [facility] [address] [id number] [place] [address]- 8681 Sep, [facility] [place] [facility] [address] [id number], [place] [address]- 2334 Sep, [facility] [place] [facility] [address] [id number], [place] [address]- 7918 Sep, [facility] [place] [facility] [address] [id number], [place] [address]- 5962 Aug, [facility] [place] [facility] [address] [id number] [place] [address]- 5492 Aug, [facility] [place] [facility] [address] [id number] [place] [address]- 5064 Aug, [facility] [place] [facility] [address] [id number] [place] [address]- 8756 Aug, [facility] [place] [facility] [address] [id number] [place] [address]- 6993 Aug, 2012 [facility] [place] [facility] [address] [id number] [place] [address]- 2652 23 Aug, 2012 [facility] [place] [facility] [address] [id number] [place] [address]- 9749 Aug, 2012 [facility] [place] [facility] [address] [id number] [place] [address]- 2898 Aug, 2012 [facility] [place] [facility] [address] [id number] [place] [address]- 0487 16 Aug, 2012 [facility] [place] [facility] [address] [id number] [place] [address]- 4876 16 Aug, 2012 [facility] [place] [facility] [address] [id number] [place] [address]- 9392 10 Aug, 2012 [facility] [place] [facility] [address] [id number] [place] [address]- 1633 10 Aug, 2012 [facility] [place] [facility] [address] [id number] [place] [address]- 9777 08 Aug, 2013 [facility] [place] [facility] [address] [id number] [place] [address]- 2885 07 Aug, 2012 [facility] [place] [facility] [address] [id number] [place] [address]- 4269 04 Aug, 2013 [facility] [place] [facility] [address] [id number] [place] [address]- 1307 Aug, [facility] [place] [facility] [address] [id number], [place] [address]- 0277 Aug, [facility] [place] [facility] [address] [id number] [place] [address]- 7773 16 Jul, 2013 [facility] [place] [facility] [address] [id number] [place] [address]- 7035 Jun, [facility] [place] [facility] [address] [id number] [place] [address]- 5855 Jun, [facility] [place] [facility] [address] [id number] [place] [address]- 0262 May, [facility] [place] [facility] [address] [id number] [place] [address]- 3281 May, [facility] [place] [facility] [address] [id number] [place] [address]- 5933 Apr, [facility] [place] [facility] [address] [id number] [place] [address]- 1518 Apr, [facility] [place] [facility] [address] [id number] [place] [address]- 7295 Apr, [facility] [place] [facility] [address] [id number] [place] [address]- 1808 Apr, [facility] [place] [facility] [address] [id number] [place] [address]- 8622 Apr, [facility] [place] [facility] [address] [id number] [place] [address]- 9602 Apr, [facility] [place] [facility] [address] [id number] [place] [address]- 6590 Apr, [facility] [place] [facility] [address] [id number] [place] [address]- 4219 Apr, [facility] [place] [facility] [address] [id number] [place] [address]- 0578 Apr, [facility] [place] [facility] [address] [id number] [place] [address]- 8789 Apr, [facility] [place] [facility] [address] [id number] [place] [address]- 0152 Apr, [facility] [place] [facility] [address] [id number] [place] [address]- 9972 March, [facility] [place] [facility] [address] [id number] [place] [address]- 6730 March, [facility] [place] [facility] [address] [id number] [place] [address]- 9097 March, [facility] [address] [id number] [place] [address]- 4904 March, [facility] [address] [id number] [place] [address]- 7386 March, [facility] [address] [id number] [place] [address]- 8781 Feb, [facility] [address] [id number] [place] [address]- 5940 Feb, [facility] [address] [id number] [place] [address]- 2461 Jan, [facility] [address] [id number] [place] [address]- 4607 Jan, [facility] [address] [id number] [place] [address]- 4633 Jan, [facility] [address] [id number] [place] [address]- 4257 Jan, [facility] [address] [id number] [place] [address]- 1397 Jan, [facility] [address] [id number] [place] [address]- 1669 Dec, [facility] [address] [id number], [place] [address]- 8426 Dec, [facility] [place] [facility] [address] [id number], [place] [address]- 5609 Nov, [facility] [place] [facility] [address] [id number] [place] [address]- 6296 Nov, [facility] [place] [facility] [address] [id number] [place] [address]- 2601 Nov, [facility] [place] [facility] [address] [id number] [place] [address]- 7366 Nov, [facility] [place] [facility] [address] [id number] [place] [address]- 7191 15 Nov, 2012 [facility] [address] [id number] [place] [address] 14 Nov, 2012 [facility] [address] [id number] [place] [address] 14 Nov, 2012 [facility] [address] [id number] [place] [address] 11 Nov, 2012 [facility] [address] [id number] [place] [address] Nov, [facility] [address] [id number] [place] [address] Nov, [facility] [address] [id number] [place] [address] Nov, [facility] [address] [id number] [place] [address] Oct, [facility] [address] [id number] [place] [address] Oct, [facility] [address] [id number] [place] [address] Sep, [facility] [address] [id number] [place] [address] Sep, [facility] [address] [id number] [place] [address] Sep, [facility] [address] [id number] [place] [address] Sep, [facility] [address] [id number] [place] [address] Sep, [facility] [address] [id number] [place] [address] Sep, [facility] [address] [id number] [place] [address] Sep, [facility] [place] [facility] [address] [id number] [place] [address] Sep, [facility] [place] [facility] [address] [id number] [place] [address] Sep, [facility] [place] [facility] [address] [id number] [place] [address] Sep, [facility] [place] [facility] [address] [id number] [place] [address] Sep, [facility] [place] [facility] [address] [id number] [place] [address] Sep, [facility] [place] [facility] [address] [id number] [place] [address] Sep, [facility] [place] [facility] [address] [facility] [id number] [place] [address] Sep, [facility] [place] [facility] [address] [id number], [place] [address] Aug, [facility] [place] [facility] [address] [facility] [id number], [place] [address] Aug, [facility] [place] [facility] [address] [facility] [id number], [place] [address] Aug, [facility] [place] [facility] [address] [facility] [id number], [place] [address] Aug, [facility] [place] [facility] [address] [id number], [place] [address] Aug, [facility] [place] [facility] [address] [facility] [id number], [place] [address] Aug, [facility] [place] [facility] [address] [facility] [id number], [place] [address] Aug, [facility] [place] [facility] [address] [facility] [id number], [place] [address] Aug, [facility] [place] [facility] [address] [id number], [place] [address] Aug, [facility] [place] [address], [place] [address] Aug, [facility] [place] [address], [place] [address] Aug, [facility] [place] [id number], [place] [address] Aug, [facility] [place] [id number] [place] [address] Aug, [facility] [place] [id number] [place] [address]- [address] Aug, [facility] [place] [id number] [place] [address] 330901- [address]13 Aug, [facility] [place] [id number] [place] [address]- [address] Aug, [facility] [place] [id number], [place] [address] Aug, [facility] [place] [id number] [place] [address]- [address] Jul, [facility] [place] [id number], [place] [address] Jun, [facility] [place] [id number], [place] [address] Aug, [facility] [place] [address], [place] [address] Aug, [facility] [place] [id number], [place] [address] Aug, IMMUNIZATIONS No Known Immunizations SOCIAL HISTORY Never Assessed REASON FOR VISIT Refill request PLAN OF CARE VITAL SIGNS MEDICATIONS Medication Instructions Dosage Frequency Start Date End Date Duration Status Cyclobenzaprine HCl 10 mg Orally at bedtime 1 tablet Active RESULTS No Results PROCEDURES No Known [...]
--- OUTSIDE RECORDS SUMMARY | 2018-05-03 20:03 | XMS REPORT | Continuity of Care Document ---
Author Author [facility] Address Unknown Phone Unavailable Allergies Active Description Code Type Severity Reaction Onset Reported/Identified Relationship to Patient Clinical Status Yes trimethoprim [id number] Drug Allergy Unknown N/A 04/23/2006 Yes Bactrim Drug Allergy 08/10/2009 Yes Bactrim Drug Allergy N/A N/A 08/10/2009 Yes sulfamethoxazole [id number] Drug Allergy Unknown N/A 11/14/2017 Medications There is no data. Problems Date Dx Coded Attending Type Code Diagnosis Diagnosed By 10/19/1455 SVETA SAMS MD, Ot E66.01 MORBID (SEVERE) OBESITY DUE TO EXCESS CA 10/19/1455 SVETA SAMS MD, Ot 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 ULC 10/19/1455 [...] APRN 465.9 UPPER RESPIRATORY INFECTION 08/10/2009 WILVER BOX CAR BRACER, AAKASH T 692.9 CONTACT DERMATITIS AND OTHER [place] UNSPECIFIED CAUSE 08/10/2009 MADL BOX CAR BRACER, PIPPA L 465.9 UPPER RESPIRATORY INFECTION 08/10/2009 MADL BOX CAR BRACER, PIPPA L 692.9 CONTACT DERMATITIS AND OTHER [place] UNSPECIFIED CAUSE 08/10/2009 WISEMAN DO, MICKEY K 465.9 UPPER RESPIRATORY INFECTION 08/10/2009 WISEMAN DO, MICKEY K 692.9 CONTACT DERMATITIS AND OTHER [place] UNSPECIFIED CAUSE 08/10/2009 WISEMAN DO, MICKEY K 465.9 UPPER RESPIRATORY INFECTION 08/10/2009 WISEMAN DO, MICKEY K 692.9 CONTACT DERMATITIS AND OTHER [place] UNSPECIFIED CAUSE 08/10/2009 RAFAEL BOX CAR BRACER, NICKOLAS R 465.9 UPPER RESPIRATORY INFECTION 08/10/2009 RAFAEL BOX CAR BRACER, NICKOLAS R 692.9 CONTACT DERMATITIS AND OTHER ECZ[place] UNSPECIFIED CAUSE 08/10/2009 JORDEN MEZA MD 465.9 ACUTE UPPER RESPIRATORY INFECTIONS OF UNSPECIFIED SITE 08/10/2009 JORDEN MEZA MD 692.9 CONTACT DERMATITIS AND OTHER [place] UNSPECIFIED CAUSE 08/10/2009 WISEMAN DO, MICKEY K 465.9 UPPER RESPIRATORY INFECTION 08/10/2009 WISEMAN DO, MICKEY K 692.9 CONTACT DERMATITIS AND OTHER [place] UNSPECIFIED CAUSE 08/10/2009 MADL BOX CAR BRACER, PIPPA L 465.9 UPPER RESPIRATORY INFECTION 08/10/2009 MADL BOX CAR BRACER, PIPPA L 692.9 CONTACT DERMATITIS AND OTHER ECZEMA UNSPECIFIED CAUSE 08/10/2009 MADL BOX CAR BRACER, PIPPA L 465.9 UPPER RESPIRATORY INFECTION 08/10/2009 MADL BOX CAR BRACER, PIPPA L 692.9 CONTACT DERMATITIS AND OTHER [...] MEZA MD 593.9 RENAL INSUFFICIENCY 08/17/2012 CARMELLA BOX CAR BRACER, INOCENTE S 244.9 HYPOTHYROIDISM 08/17/2012 CARMELLA BOX CAR BRACER, INOCENTE S 272.4 HYPERLIPIDEMIA 08/17/2012 CARMELLA BOX CAR BRACER, INOCENTE S 278.00 OBESITY 08/17/2012 CARMELLA BOX CAR BRACER, INOCENTE S 296.90 EPISODIC MOOD DISORDERS 08/17/2012 CARMELLA BOX CAR BRACER, INOCENTE S 338.29 CHRONIC PAIN 08/17/2012 CARMELLA BOX CAR BRACER, INOCENTE S 593.9 RENAL INSUFFICIENCY 08/17/2012 WISEMAN [...] Castrejon T 593.9 RENAL INSUFFICIENCY 08/17/2012 MADL BOX CAR BRACER, PIPPA L 244.9 HYPOTHYROIDISM 08/17/2012 MADL BOX CAR BRACER, PIPPA L 272.4 HYPERLIPIDEMIA 08/17/2012 MADL BOX CAR BRACER, PIPAP L 278.00 OBESITY 08/17/2012 MADL BOX CAR BRACER, PIPPA L 296.90 EPISODIC MOOD DISORDERS 08/17/2012 MADL BOX CAR BRACER, PIPPA L 338.29 CHRONIC PAIN 08/17/2012 MADL BOX CAR BRACER, PIPPA L 593.9 RENAL INSUFFICIENCY 08/17/2012 WISEMAN DO, MICKEY K 244.9 HYPOTHYROIDISM 08/17/2012 WISEMAN DO, MICKYE K 272.4 HYPERLIPIDEMIA 08/17/2012 WISEMAN DO, MICKEY [...] MICKEY K 593.9 RENAL INSUFFICIENCY 08/17/2012 RAFAEL BOX CAR BRACER, NICKOLAS R 244.9 HYPOTHYROIDISM 08/17/2012 RAFAEL BOX CAR BRACER, NICKOLAS R 272.4 HYPERLIPIDEMIA 08/17/2012 RAFAEL BOX CAR BRACER, NICKOLAS R 278.00 OBESITY 08/17/2012 RAFAEL BOX CAR BRACER, NICKOLAS R 296.90 EPISODIC MOOD DISORDERS 08/17/2012 RAFAEL BOX CAR BRACER, NICKOLAS R 338.29 CHRONIC PAIN 08/17/2012 RAFAEL BOX CAR BRACER, NICKOLAS R 593.9 RENAL INSUFFICIENCY 08/17/2012 JORDEN [...] MICKEY K 593.9 RENAL INSUFFICIENCY 08/17/2012 MADL BOX CAR BRACER, PIPPA L 244.9 HYPOTHYROIDISM 08/17/2012 MADL BOX CAR BRACER, PIPPA L 272.4 HYPERLIPIDEMIA 08/17/2012 MADL BOX CAR BRACER, PIPPA L 278.00 OBESITY 08/17/2012 MADL BOX CAR BRACER, PIPPA L 296.90 EPISODIC MOOD DISORDERS 08/17/2012 MADL BOX CAR BRACER, PIPPA L 338.29 CHRONIC PAIN 08/17/2012 MADL BOX CAR BRACER, PIPPA L 593.9 RENAL INSUFFICIENCY 08/17/2012 MADL BOX CAR BRACER, PIPPA L 244.9 HYPOTHYROIDISM 08/17/2012 MADL BOX CAR BRACER, PIPPA L 272.4 HYPERLIPIDEMIA 08/17/2012 MADL BOX CAR BRACER, PIPPA L 278.00 OBESITY 08/17/2012 MADL BOX CAR BRACER, PIPPA L 296.90 EPISODIC MOOD DISORDERS 08/17/2012 MADL BOX CAR BRACER, PIPPA L 338.29 CHRONIC PAIN 08/17/2012 MADL BOX CAR BRACER, PIPPA L 593.9 RENAL INSUFFICIENCY 09/02/2012 Ot [...] JORDEN MEZA MD 786.2 COUGH 11/16/2012 EARLY BOX CAR BRACER, JAY R 466.0 BRONCHITIS, ACUTE 11/16/2012 EARLY BOX CAR BRACER, JAY R 786.07 WHEEZING 11/16/2012 EARLY BOX CAR BRACER, JAY R 786.2 cough 11/16/2012 466.0 BRONCHITIS, ACUTE 11/16/2012 786.07 WHEEZING 11/16/2012 786.2 cough 11/16/2012 EARLY BOX CAR BRACER, JAY R 466.0 BRONCHITIS, ACUTE 11/16/2012 EARLY BOX CAR BRACER, JAY R 786.07 WHEEZING 11/16/2012 EARLY BOX CAR BRACER, JAY R 786.2 cough 11/16/2012 466.0 BRONCHITIS, [...] 11/16/2012 DIO CHI MD 786.07 WHEEZING 11/16/2012 IDO CHI MD 786.2 cough 11/16/2012 SHARATH BOX CAR BRACER, JAY R 466.0 BRONCHITIS, ACUTE 11/16/2012 SHARATH [...] M 466.0 BRONCHITIS, ACUTE 11/16/2012 ALON WHITE, DOI M 786.07 WHEEZING 11/16/2012 ALON WHITE, DIO [...] APRN T 466.0 BRONCHITIS, ACUTE 11/16/2012 WILVER BOX CAR BRACER, AAKASH T 786.07 WHEEZING 11/16/2012 WILVER BOX CAR BRACER, AAKASH T 786.2 COUGH 11/16/2012 WILVER [place] AAKASH T 466.0 BRONCHITIS, ACUTE 11/16/2012 WILVER BOX CAR BRACER AAKASH T 786.07 WHEEZING 11/16/2012 WILVER BOX CAR BRACER, AAKASH T 786.2 COUGH 11/16/2012 MADL BOX CAR BRACER, PIPPA L 466.0 BRONCHITIS, ACUTE 11/16/2012 MADL BOX CAR BRACER, PIPPA L 786.07 WHEEZING 11/16/2012 MADL BOX CAR BRACER, PIPPA L 786.2 COUGH 11/16/2012 WISEMAN DO, MICKEY K 466.0 BRONCHITIS, ACUTE 11/16/2012 WISEMAN DO, MICKEY K 786.07 WHEEZING 11/16/2012 WISEMAN DO, MICKEY K 786.2 COUGH 11/16/2012 WISEMAN DO, MICKEY K 466.0 BRONCHITIS, ACUTE 11/16/2012 WISEMAN DO, MICKEY K 786.07 WHEEZING 11/16/2012 WISEMAN DO, MICKEY K 786.2 COUGH 11/16/2012 RAFAEL BOX CAR BRACER, NICKOLAS R 466.0 BRONCHITIS, ACUTE 11/16/2012 RAFAEL BOX CAR BRACER, NICKOLAS R 786.07 WHEEZING 11/16/2012 RAFAEL BOX CAR BRACER, NICKOLAS R 786.2 COUGH 11/16/2012 WISEMAN DO, MICKEY K 466.0 BRONCHITIS, ACUTE 11/16/2012 WISEMAN DO, MICKEY K 786.07 WHEEZING 11/16/2012 WISEMAN DO, MICKEY K 786.2 COUGH 11/16/2012 MADL BOX CAR BRACER, PIPPA L 466.0 BRONCHITIS, ACUTE 11/16/2012 MADL BOX CAR BRACER, PIPPA L 786.07 WHEEZING 11/16/2012 MADL BOX CAR BRACER, PIPPA L 786.2 COUGH 11/16/2012 MADL BOX CAR BRACER, PIPPA L 466.0 BRONCHITIS, ACUTE 11/16/2012 MADL BOX CAR BRACER, PIPPA L 786.07 WHEEZING 11/16/2012 MADL BOX CAR BRACER, PIPPA L 786.2 COUGH 03/14/2013 380.4 CERUMEN [...] CHI MD 477.9 ALLERGIC RHINITIS 03/14/2013 EARLY BOX CAR BRACER, JAY R 380.4 CERUMEN IMPACTION 03/14/2013 EARLY BOX CAR BRACER, JAY R 477.9 ALLERGIC RHINITIS 03/14/2013 WISEMAN [...] WHITE, JORDEN 477.9 ALLERGIC RHINITIS 03/14/2013 CARMELLA BOX CAR BRACER, INOCENTE S 380.4 CERUMEN IMPACTION 03/14/2013 CARMELLA BOX CAR BRACER, INOCENTE S 477.9 ALLERGIC RHINITIS 03/14/2013 WISEMAN [...] MICKEY K 477.9 ALLERGIC RHINITIS 03/14/2013 WILVER BOX CAR BRACER, AAKASH T 380.4 CERUMEN IMPACTION 03/14/2013 WILVER BOX CAR BRACER, AAKASH T 477.9 ALLERGIC RHINITIS 03/14/2013 WILVER BOX CAR BRACER, AAKASH T 380.4 CERUMEN IMPACTION 03/14/2013 WILVER BOX CAR BRACER, AAKASH T 477.9 ALLERGIC RHINITIS 03/14/2013 MADL BOX CAR BRACER, PIPPA L 380.4 CERUMEN IMPACTION 03/14/2013 MADL BOX CAR BRACER, PIPPA L 477.9 ALLERGIC RHINITIS 03/14/2013 WISEMAN DO, MICKEY K 380.4 CERUMEN IMPACTION 03/14/2013 WISEMAN DO, MIKCEY K 477.9 ALLERGIC RHINITIS 03/14/2013 WISEMAN DO, MICKEY K 380.4 CERUMEN IMPACTION 03/14/2013 WISEMAN DO, MICKEY K 477.9 ALLERGIC RHINITIS 03/14/2013 RAFAEL BOX CAR BRACER, NICKOLAS R 380.4 CERUMEN IMPACTION 03/14/2013 RAFAEL BOX CAR BRACER, NICKOLAS R 477.9 ALLERGIC RHINITIS 03/14/2013 WISEMAN DO, MICKEY K 380.4 CERUMEN IMPACTION 03/14/2013 WISEMAN DO, MICKEY K 477.9 ALLERGIC RHINITIS 03/14/2013 MADL BOX CAR BRACER, PIPPA L 380.4 CERUMEN IMPACTION 03/14/2013 MADL BOX CAR BRACER, PIPPA L 477.9 ALLERGIC RHINITIS 03/14/2013 MADL BOX CAR BRACER, PIPPA L 380.4 CERUMEN IMPACTION 03/14/2013 MADL BOX CAR BRACER, PIPPA L 477.9 ALLERGIC RHINITIS 04/25/2013 327.23 [...] K 327.23 SLEEP APNEA OBSTRUCTIVE 04/25/2013 JUDIE BOX CAR BRACERMONTANA CastrejonA L 327.23 SLEEP APNEA OBSTRUCTIVE 04/25/2013 [...] CELLULITIS AND ABSCESS OF TRUNK 05/21/2013 RAFAEL BOX CAR BRACER, NICKOLAS R 333.94 RESTLESS LEGS SYNDROME (RLS) 05/21/2013 RAFAEL BOX CAR BRACER, NICKOLAS R 682.2 CELLULITIS AND ABSCESS OF TRUNK 05/21/2013 WISEMAN DO MICKEY K 333.94 RESTLESS LEGS SYNDROME (RLS) 05/21/2013 WISEMAN DO, MICKEY K 682.2 CELLULITIS AND ABSCESS OF TRUNK 05/21/2013 MADL BOX CAR BRACER, PIPPA L 333.94 RESTLESS LEGS SYNDROME (RLS) 05/21/2013 MADL BOX CAR BRACER, PIPPA L 682.2 CELLULITIS AND ABSCESS OF TRUNK 05/21/2013 MADL BOX CAR BRACER, PIPPA L 333.94 RESTLESS LEGS SYNDROME (RLS) 05/21/2013 MADL BOX CAR BRACER, PIPPA L 682.2 CELLULITIS AND ABSCESS OF [...] MD 717.7 CHONDROMALACIA OF [place] 08/22/2013 DIO CHI MD 717.7 CHONDROMALACIA OF [place] 08/22/2013 WISEMAN [...] APRN T 782.0 TINGLING (PARESTHESIA) 09/04/2013 MADDIEL BOX CAR BRACER, PIPPA L 782.0 TINGLING (PARESTHESIA) 09/04/2013 WISEMAN DO, MICKEY K 782.0 [place] (PARESTHESIA) 09/04/2013 WISEMAN DO, MICKEY K 782.0 [place]INGLING (PARESTHESIA) 09/04/2013 RAFAEL PINTO NICKOLAS R 782.0 [place]INGLING (PARESTHESIA) 09/04/2013 WISEMAN DO, MICKEY K 782.0 [place] (PARESTHESIA) 09/04/2013 MADL BOX CAR BRACER, PIPPA L 782.0 TINGLING (PARESTHESIA) 09/04/2013 MADL BOX CAR BRACER, PIPPA L 782.0 TINGLING (PARESTHESIA) 10/02/2013 JAY [...] AND UNSPECIFIED SITES WITHOUT INFECTION 10/02/2013 RAFAEL BOX CAR BRACERFLORENCIONICKOLAS R 919.4 INSECT BITE NONVENOMOUS OF OTHER MULTIPLE AND UNSPECIFIED SITES WITHOUT INFECTION 10/02/2013 WISEMAN DO, MICKEY K 919.4 INSECT BITE NONVENOMOUS OF OTHER MULTIPLE AND UNSPECIFIED SITES WITHOUT INFECTION 10/02/2013 MADL BOX CAR BRACER, PIPPA L 919.4 INSECT BITE NONVENOMOUS OF OTHER MULTIPLE AND UNSPECIFIED SITES WITHOUT INFECTION 10/02/2013 MADL BOX CAR BRACER, PIPPA L 919.4 INSECT BITE NONVENOMOUS OF [...] 682.6 CELLULITIS OF THE LEG 10/16/2013 INOCENTE WEIR APRN S 300.00 ANXIETY UNSPEC 10/16/2013 INOCENTE [...] 682.6 CELLULITIS OF THE LEG 10/16/2013 MADDIEL BOX CAR BRACER, PIPPA L 300.00 anxiety 10/16/2013 MADL BOX CAR BRACER, PIPPA L 682.6 CELLULITIS OF THE LEG [...] 682.6 CELLULITIS OF THE LEG 10/16/2013 MADL BOX CAR BRACER, PIPPA L 300.00 anxiety 10/16/2013 MADL BOX CAR BRACER, PIPPA L 682.6 CELLULITIS OF THE LEG 10/16/2013 JUDIE BOX CAR BRACER, PIPPA L 300.00 anxiety 10/16/2013 JUDIE BOX CAR BRACER, PIPPA L 682.6 CELLULITIS OF THE LEG [...] 459.81 VENOUS (PERIPHERAL) INSUFFICIENCY UNSPECIFIED 11/07/2013 JUDIE BOX CAR BRACER, PIPPA L 459.81 VENOUS (PERIPHERAL) INSUFFICIENCY UNSPECIFIED 11/07/2013 MADL BOX CAR BRACER, PIPPA L 459.81 VENOUS (PERIPHERAL) INSUFFICIENCY UNSPECIFIED 12/04/2013 SVETA PORTER MD Ot 401.9 HYPERTENSION NOS 12/04/2013 SVETA PORTER MD Ot 414.01 CORONARY ATHEROSCLEROSIS OF [place] CORON 12/04/2013 SVETA PORTER MD Ot 717.40 [...] PINTO AAKASH T 782.3 EDEMA 01/08/2014 JUDIE BOX CAR BRACER, PIPPA L 782.3 EDEMA 01/08/2014 WISEMAN DO, MICKEY K 782.3 EDEMA 01/08/2014 WISEMAN DO, MICKEY K 782.3 EDEMA 01/08/2014 RAFAEL PINTO NICOKLAS R 782.3 EDEMA 01/08/2014 WISEMAN DO, MICKEY K 782.3 EDEMA 01/08/2014 MADArjun BOX CAR BRACER, PIPPA L 782.3 EDEMA 01/08/2014 MADL BOX CAR BRACER, PIPPA L 782.3 EDEMA 01/22/2014 DIO CHI [...] K 786.05 shortness of breath 01/22/2014 WILVER BOX CAR BRACER, AAKASH T 682.9 CELLULITIS OF EXTREMITY 01/22/2014 WILVER BOX CAR BRACER, AAKASH T 786.05 shortness of breath 01/22/2014 WILVER BOX CAR BRACER, AAKASH T 682.9 CELLULITIS OF EXTREMITY 01/22/2014 WILVER BOX CAR BRACER, AAKASH T 786.05 shortness of breath 01/22/2014 MADL BOX CAR BRACER, PIPPA L 682.9 CELLULITIS OF EXTREMITY 01/22/2014 MADL BOX CAR BRACER, PIPPA L 786.05 SHORTNESS OF BREATH 01/22/2014 WISEMAN DO, MICKEY K 682.9 CELLULITIS OF EXTREMITY 01/22/2014 WISEMAN DO, MICKEY K 786.05 SHORTNESS OF BREATH 01/22/2014 WISEMAN DO, MICKEY K 682.9 CELLULITIS OF EXTREMITY 01/22/2014 WISEMAN DO, MICKEY K 786.05 SHORTNESS OF BREATH 01/22/2014 RAFAEL BOX CAR BRACER, NICKOLAS R 682.9 CELLULITIS OF EXTREMITY 01/22/2014 RAFAEL BOX CAR BRACER, NICKOLAS R 786.05 SHORTNESS OF BREATH 01/22/2014 WISEMAN DO, MICKEY K 682.9 CELLULITIS OF EXTREMITY 01/22/2014 WISEMAN DO, MICKEY K 786.05 SHORTNESS OF BREATH 01/22/2014 MADL BOX CAR BRACER, PIPPA L 682.9 CELLULITIS OF EXTREMITY 01/22/2014 MADL BOX CAR BRACER, PIPPA L 786.05 SHORTNESS OF BREATH 01/22/2014 MADL BOX CAR BRACER, PIPPA L 682.9 CELLULITIS OF EXTREMITY 01/22/2014 MADL BOX CAR BRACER, PIPPA L 786.05 SHORTNESS OF BREATH 02/17/2014 [...] APRN T 466.0 BRONCHITIS, ACUTE 02/17/2014 WILVER BOX CAR BRACERAAKASH T 461.9 SINUSITIS ACUTE 02/17/2014 WILVER BOX CAR BRACERAAKASH T 466.0 BRONCHITIS, ACUTE 02/17/2014 MADL BOX CAR BRACER, PIPPA L 461.9 SINUSITIS ACUTE 02/17/2014 MADL BOX CAR BRACER, PIPPA L 466.0 BRONCHITIS, ACUTE 02/17/2014 WISEMAN DO, MICKEY K 461.9 SINUSITIS ACUTE 02/17/2014 WISEMAN DO, MICKEY K 466.0 BRONCHITIS, ACUTE 02/17/2014 WISEMAN DO, MICKEY K 461.9 SINUSITIS ACUTE 02/17/2014 WISEMAN DO, MICKEY K 466.0 BRONCHITIS, ACUTE 02/17/2014 RAFAEL BOX CAR BRACER, NICKOLAS R 461.9 SINUSITIS ACUTE 02/17/2014 RAFAEL BOX CAR BRACER, NICKOLAS R 466.0 BRONCHITIS, ACUTE 02/17/2014 WISEMAN DO, MICKEY K 461.9 SINUSITIS ACUTE 02/17/2014 WISEMAN DO, MICKEY K 466.0 BRONCHITIS, ACUTE 02/17/2014 MADL BOX CAR BRACER, PIPPA L 461.9 SINUSITIS ACUTE 02/17/2014 MADL BOX CAR BRACER, PIPPA L 466.0 BRONCHITIS, ACUTE 02/17/2014 MADL BOX CAR BRACER, PIPPA L 461.9 SINUSITIS ACUTE 02/17/2014 MADL BOX CAR BRACER, PIPPA L 466.0 BRONCHITIS, ACUTE 05/13/2014 AAKASH PETTIT APRN T 719.46 PAIN KNEE 05/13/2014 MADL BOX CAR BRACER, PIPPA L 719.46 PAIN KNEE 05/13/2014 WISEMAN DO, MICKEY K 719.46 PAIN KNEE 05/13/2014 WISEMAN DO, MICKEY K 719.46 PAIN KNEE 05/13/2014 RAFAEL BOX CAR BRACER, NICKOLAS R 719.46 PAIN KNEE 05/13/2014 WISEMAN DO, MICKEY K 719.46 PAIN KNEE 05/13/2014 MADL BOX CAR BRACER, PIPPA L 719.46 PAIN KNEE 05/13/2014 MADL BOX CAR BRACER, PIPPA L 719.46 PAIN KNEE 06/17/2014 MADL BOX CAR BRACER, PIPPA L 790.29 OTHER ABNORMAL GLUCOSE 06/17/2014 MADL BOX CAR BRACER, PIPPA L V46.2 DEPENDENCE ON SUPPLEMENTAL OXYGEN 06/17/2014 WISEMAN DO, MICKEY K 790.29 OTHER ABNORMAL GLUCOSE 06/17/2014 WISEMAN DO, MICKEY K V46.2 DEPENDENCE ON SUPPLEMENTAL OXYGEN 06/17/2014 WISEMAN DO, MICKEY K 790.29 OTHER ABNORMAL GLUCOSE 06/17/2014 WISEMAN DO, MICKEY K V46.2 DEPENDENCE ON SUPPLEMENTAL OXYGEN 06/17/2014 RAFAEL BOX CAR BRACER, NICKOLAS R 790.29 OTHER ABNORMAL GLUCOSE 06/17/2014 RAFAEL BOX CAR BRACER, NICKOLAS R V46.2 DEPENDENCE ON SUPPLEMENTAL OXYGEN 06/17/2014 WISEMAN DO, MICKEY K 790.29 OTHER ABNORMAL GLUCOSE 06/17/2014 WISEMAN DO, MICKEY K V46.2 DEPENDENCE ON SUPPLEMENTAL OXYGEN 06/17/2014 MADL BOX CAR BRACER, PIPPA L 790.29 OTHER ABNORMAL GLUCOSE 06/17/2014 MADL BOX CAR BRACER, PIPPA L V46.2 DEPENDENCE ON SUPPLEMENTAL OXYGEN 06/17/2014 MADL BOX CAR BRACER, PIPPA L 790.29 OTHER ABNORMAL GLUCOSE 06/17/2014 MADL BOX CAR BRACER, PIPPA L V46.2 DEPENDENCE ON SUPPLEMENTAL OXYGEN 08/09/2014 SHAD WHITE, CANDY Whitley Ot 682.6 CELLULITIS OF LEG 09/09/2014 WISEMAN DO, MICKEY K 401.1 HYPERTENSION, BENIGN ESSENTIAL 09/09/2014 RAFAEL BOX CAR BRACER, NICKOLAS R 401.1 HYPERTENSION, BENIGN ESSENTIAL 09/09/2014 WISEMAN DO, MICKEY K 401.1 HYPERTENSION, BENIGN ESSENTIAL 09/09/2014 MADL BOX CAR BRACER, PIPPA L 401.1 HYPERTENSION, BENIGN ESSENTIAL 09/09/2014 MADL BOX CAR BRACER, PIPPA L 401.1 HYPERTENSION, BENIGN ESSENTIAL 11/17/2014 [...] MD Ot V74.8 11/17/2014 [place] DIMASA L REGISTERED NURSE MATERNITY Ot 786.05 11/25/2014 RAFAEL BOX CAR BRACER, NICKOLAS R 786.2 COUGH 11/25/2014 WISEMAN DO, MICKEY K 786.2 COUGH 11/25/2014 MADL BOX CAR BRACER, PIPPA L 786.2 COUGH 11/25/2014 MADL BOX CAR BRACER, PIPPA L 786.2 COUGH 01/06/2015 WISEMAN DO, MICKEY K 726.71 ACHILLES BURSITIS OR TENDINITIS 01/06/2015 MADL BOX CAR BRACER, PIPPA L 726.71 ACHILLES BURSITIS OR TENDINITIS 01/06/2015 MADL BOX CAR BRACER, PIPPA L 726.71 ACHILLES BURSITIS OR TENDINITIS 02/16/2015 MADL BOX CAR BRACER, PIPPA L 465.9 UPPER RESPIRATORY INFECTION 02/16/2015 MADL BOX CAR BRACER, PIPPA L 465.9 UPPER RESPIRATORY INFECTION 03/02/2015 MADL BOX CAR BRACER, PIPPA L 719.45 PAIN IN JOINT INVOLVING PELVIC REGION AND THIGH 04/13/2015 JANNY TROY MD Ot 397.0 04/13/2015 JANNY TROY MD Ot 401.9 04/13/2015 JANNY TROY MD Ot 424.0 04/13/2015 JANNY TROY MD Ot 786.09 04/13/2015 JANNY TROY MD Ot 401.9 04/13/2015 JANNY TROY MD Ot 786.09 04/13/2015 SVETA PORTER MD Ot 717.7 04/13/2015 SVETA PORTER MD Ot V72.63 04/13/2015 SVETA PORTER MD Ot V74.8 04/13/2015 PIPPA DIMAS L REGISTERED NURSE MATERNITY Ot 786.05 04/13/2015 JANNY TROY MD Ot 244.9 HYPOTHYROIDISM NOS 04/13/2015 JANNY TROY MD Ot 272.4 HYPERLIPIDEMIA NEC/NOS 04/13/2015 JANNY TROY MD Ot 278.01 MORBID OBESITY 04/13/2015 JANNY TROY MD Ot 278.03 OBESITY HYPOVENTILATION SYNDROME 04/13/2015 AJNNY TROY MD Ot 327.23 OBSTRUCTIVE SLEEP APNEA [...] SVETA Caal Ot V74.8 04/15/2015 PIPPA DIMAS REGISTERED NURSE MATERNITY Ot 786.05 05/18/2015 SYDNI WHITE, JANNY Mann Ot 397.0 05/18/2015 SYDNI WHITE, JANNY J Ot 401.9 05/18/2015 SYDNI WHITE, JANNY J Ot 424.0 05/18/2015 SYDNI WHITE, JANNY Mann Ot 786.09 05/18/2015 SYDNI WHITE, JANNY Mann Ot 401.9 05/18/2015 YSDNI WHITE, JANNY Mann Ot 786.09 05/18/2015 [place] WHITE, SVETA Caal Ot 717.7 05/18/2015 [place] WHITE, SVETA Caal Ot V72.63 05/18/2015 [place] WHITE, SVETA Caal Ot V74.8 05/18/2015 PIPPA DIMAS REGISTERED NURSE MATERNITY Ot 786.05 07/10/2015 Ot 244.9 07/10/2015 Ot [...] SVETA PORTER MD Ot 717.7 10/20/2015 SVETA OPRTER MD Ot V72.63 10/20/2015 SVETA PORTER MD Ot V74.8 10/20/2015 PIPPA DIMAS REGISTERED NURSE MATERNITY Ot 786.05 10/21/2015 SVETA SAMS MD Ot [...] P Ot V74.8 12/14/2015 MADDIEL, PIPPA L REGISTERED NURSE MATERNITY Ot 786.05 12/14/2015 MADDIEL, PIPPA L REGISTERED NURSE MATERNITY Ot M17.0 04/15/2016 MADDIEL, PIPPA L REGISTERED NURSE MATERNITY Ot R19.00 INTRA-ABD AND PELVIC SWELLING, MASS AND 04/19/2016 MADL, PIPPA L REGISTERED NURSE MATERNITY Ot R19.00 INTRA-ABD AND PELVIC SWELLING, MASS AND 04/19/2016 MADDIEL, PIPPA L REGISTERED NURSE MATERNITY Ot M17.0 BILATERAL PRIMARY OSTEOARTHRITIS OF [place] 04/29/2016 MADDIEL, PIPPA L REGISTERED NURSE MATERNITY Ot R19.00 INTRA-ABD AND PELVIC SWELLING, MASS [...] V74.8 SCREEN-BACTERIAL DIS NEC 08/16/2016 PIPPA DIMAS REGISTERED NURSE MATERNITY Ot 786.05 SHORTNESS OF BREATH 08/16/2016 PIPPA DIMAS REGISTERED NURSE MATERNITY Ot M17.0 BILATERAL PRIMARY OSTEOARTHRITIS OF KNEE 08/16/2016 PIPPA DIMAS REGISTERED NURSE MATERNITY Ot R19.00 INTRA-ABD AND PELVIC SWELLING, MASS [...] CCDS Ot I25.10 ATHSCL HEART DISEASE OF [place] CORONARY 08/17/2016 PRIYA WHITE FACC, VENUS FACP [...] MD, FACC FACP CCDS Ot Z79.899 OTHER QUARRY BOSS (CURRENT) DRUG THERAPY 08/31/2016 VENUS POWERS MD, FACC FACP CCDS Ot [...] CCDS Ot I25.10 ATHSCL HEART DISEASE OF [place] CORONARY 08/31/2016 PRIYA WHITE FACC, ALI FACP [...] FACC, ALI FACP CCDS Ot Z79.899 OTHER SENIOR LIVING (CURRENT) DRUG THERAPY 11/09/2016 CANDY KULKARNI MD [...] STATUS 11/09/2016 CANDY KULKARNI MD Ot Z79.02 SENIOR LIVING (CURRENT) USE OF ANTITHROMBOTI 11/09/2016 CANDY KULKARNI MD Ot Z79.82 QUARRY BOSS (CURRENT) USE OF ASPIRIN 11/15/2016 MADL, PIPPA L REGISTERED NURSE MATERNITY Ot M17.0 BILATERAL PRIMARY OSTEOARTHRITIS OF KNEE [...] STATUS 11/16/2016 CANDY KULKARNI MD, Ot Z79.02 SENIOR LIVING (CURRENT) USE OF ANTITHROMBOTI 11/16/2016 CANDY KULKARNI MD, Ot Z79.82 SENIOR LIVING (CURRENT) USE OF ASPIRIN 01/13/2017 JANNY TROY [...] V74.8 SCREEN-BACTERIAL DIS NEC 01/13/2017 PIPPA DIMAS REGISTERED NURSE MATERNITY Ot 786.05 SHORTNESS OF BREATH 01/13/2017 PIPPA DIMAS REGISTERED NURSE MATERNITY Ot M17.0 BILATERAL PRIMARY OSTEOARTHRITIS OF KNEE 01/13/2017 PIPPA DIMAS REGISTERED NURSE MATERNITY Ot R19.00 INTRA-ABD AND PELVIC SWELLING, MASS AND 01/13/2017 SVETA SAMS MD Ot E66.01 MORBID (SEVERE) OBESITY DUE TO EXCESS CA 01/13/2017 SVETA SAMS MD Ot 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 [facility] 01/13/2017 SVETA SAMS MD Ot I89.0 LYMPHEDEMA, NOT ELSEWHERE CLASSIFIED 01/13/2017 SVETA SAMS MD Ot L30.8 OTHER SPECIFIED DERMATITIS 01/31/2017 SVETA SAMS MD Ot E66.01 MORBID (SEVERE) OBESITY DUE TO EXCESS CA 01/31/2017 SVETA SAMS MD Ot 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 [facility] 01/31/2017 SVETA SAMS MD, Ot I89.0 LYMPHEDEMA, NOT ELSEWHERE CLASSIFIED 01/31/2017 SVETA SAMS MD Ot L30.8 OTHER SPECIFIED DERMATITIS 02/17/2017 SVETA SAMS MD Ot E66.01 MORBID (SEVERE) OBESITY DUE TO EXCESS CA 02/17/2017 SVETA SAMS MD Ot 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 [facility] 02/17/2017 SVETA SAMS MD Ot I89.0 LYMPHEDEMA, NOT ELSEWHERE CLASSIFIED 02/17/2017 SVETA SAMS MD Ot L30.8 OTHER SPECIFIED DERMATITIS 02/21/2017 SVETA SAMS MD Ot E66.01 MORBID (SEVERE) OBESITY DUE TO EXCESS CA 02/21/2017 VSETA SAMS MD Ot I30.8 OTHER FORMS OF ACUTE PERICARDITIS 02/21/2017 SVETA SAMS MD Ot 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 [facility] 02/21/2017 SVETA SAMS MD Ot I89.0 LYMPHEDEMA, NOT ELSEWHERE CLASSIFIED 02/21/2017 SVETA SAMS MD Ot E66.01 MORBID (SEVERE) OBESITY DUE TO EXCESS CA 02/21/2017 SVETA SAMS MD Ot I30.8 OTHER FORMS OF ACUTE PERICARDITIS 02/21/2017 SVETA SAMS MD Ot 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 [facility] 02/21/2017 SVETA SAMS MD Ot I89.0 [...] V74.8 SCREEN-BACTERIAL DIS NEC 02/21/2017 PIPPA DIMAS REGISTERED NURSE MATERNITY Ot 786.05 SHORTNESS OF BREATH 02/21/2017 PIPPA DIMAS REGISTERED NURSE MATERNITY Ot M17.0 BILATERAL PRIMARY OSTEOARTHRITIS OF KNEE 02/21/2017 PIPPA DIMAS REGISTERED NURSE MATERNITY Ot R19.00 INTRA-ABD AND PELVIC SWELLING, MASS AND 02/21/2017 SVETA SAMS MD Ot E66.01 MORBID (SEVERE) OBESITY DUE TO EXCESS CA 02/21/2017 SVETA SAMS MD Ot I30.8 OTHER FORMS OF ACUTE PERICARDITIS 02/21/2017 SVETA SAMS MD Ot 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 [facility] 02/21/2017 SVETA SAMS MD Ot I89.0 LYMPHEDEMA, NOT ELSEWHERE CLASSIFIED 03/02/2017 SVETA SAMS MD Ot E66.01 MORBID (SEVERE) OBESITY DUE TO EXCESS CA 03/02/2017 SVETA SAMS MD Ot I30.8 OTHER FORMS OF ACUTE PERICARDITIS 03/02/2017 SVETA SAMS MD Ot 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 [facility] 03/02/2017 SVETA SAMS MD Ot I89.0 LYMPHEDEMA, NOT ELSEWHERE CLASSIFIED 03/13/2017 SVETA SAMS MD Ot E66.01 MORBID (SEVERE) OBESITY DUE TO EXCESS CA 03/13/2017 SVETA SAMS MD Ot I30.8 OTHER FORMS OF ACUTE PERICARDITIS 03/13/2017 SVETA SAMS MD Ot 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 [facility] 03/13/2017 SVETA SAMS MD, Ot I89.0 LYMPHEDEMA, NOT ELSEWHERE CLASSIFIED 03/22/2017 SVETA SAMS MD Ot E66.01 MORBID (SEVERE) OBESITY DUE TO EXCESS CA 03/22/2017 SVETA SAMS MD Ot I30.8 OTHER FORMS OF ACUTE PERICARDITIS 03/22/2017 SVETA SAMS MD Ot 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 [facility] 03/22/2017 SVETA SAMS MD, Ot I89.0 [...] Ot 786.09 RESPIRATORY ABNORM NEC 04/04/2017 SVETA PORTER MD Ot 717.7 CHONDROMALACIA PATELLAE 04/04/2017 SVETA PORTER MD Ot V72.63 PRE-PROCEDURAL LABORATORY EXAMINATION 04/04/2017 SVETA PORTER MD Ot V74.8 SCREEN-BACTERIAL DIS NEC 04/04/2017 JUDIE, PIPPA L REGISTERED NURSE MATERNITY Ot 786.05 SHORTNESS OF BREATH 04/04/2017 JUDIE, PIPPA L REGISTERED NURSE MATERNITY Ot M17.0 BILATERAL PRIMARY OSTEOARTHRITIS OF KNEE 04/04/2017 JUDIE PIPPA L REGISTERED NURSE MATERNITY Ot R19.00 INTRA-ABD AND PELVIC SWELLING, MASS [...] SCREEN-BACTERIAL DIS NEC 04/11/2017 PIPPA DIMAS L REGISTERED NURSE MATERNITY Ot 786.05 SHORTNESS OF BREATH 04/11/2017 MADDIELMONTANAA L REGISTERED NURSE MATERNITY Ot M17.0 BILATERAL PRIMARY OSTEOARTHRITIS OF KNEE 04/11/2017 MADL, PIPPA L REGISTERED NURSE MATERNITY Ot R19.00 INTRA-ABD AND PELVIC SWELLING, MASS [...] V74.8 SCREEN-BACTERIAL DIS NEC 04/11/2017 MADDIELPIPPA L REGISTERED NURSE MATERNITY Ot 786.05 SHORTNESS OF BREATH 04/11/2017 MADDIEPIPPA Díaz L REGISTERED NURSE MATERNITY Ot M17.0 BILATERAL PRIMARY OSTEOARTHRITIS OF KNEE 04/11/2017 MADDIELMONTANAA L REGISTERED NURSE MATERNITY Ot R19.00 INTRA-ABD AND PELVIC SWELLING, MASS [...] V74.8 SCREEN-BACTERIAL DIS NEC 05/14/2017 MADDIEPIPPA Díaz REGISTERED NURSE MATERNITY Ot 786.05 SHORTNESS OF BREATH 05/14/2017 MADDIEPIPPA Díaz REGISTERED NURSE MATERNITY Ot M17.0 BILATERAL PRIMARY OSTEOARTHRITIS OF KNEE 05/14/2017 JUDIEPIPPA REGISTERED NURSE MATERNITY Ot R19.00 INTRA-ABD AND PELVIC SWELLING, MASS AND 05/15/2017 MELVINA MCNAIR MD, Ot E03.9 HYPOTHYROIDISM, UNSPECIFIED 05/15/2017 MELVINA MCNAIR MD, Ot E66.01 MORBID (SEVERE) OBESITY DUE TO EXCESS CA 05/15/2017 MELVINA MCNAIR MD, Ot I10 ESSENTIAL (PRIMARY) HYPERTENSION 05/15/2017 MELVINA MCNAIR MD, Ot I25.10 ATHSCL HEART DISEASE OF [place] CORONARY 05/15/2017 MELVINA MCNAIR MD, Ot I25.5 [...] ALFREDO 05/15/2017 MELVINA MCNAIR MD, Ot Z79.82 SENIOR LIVING (CURRENT) USE OF ASPIRIN 05/15/2017 MELVINA MCNAIR MD, Ot Z79.899 OTHER SENIOR LIVING (CURRENT) DRUG THERAPY 05/15/2017 MELVINA MCNAIR MD, Ot Z95.5 PRESENCE OF CORONARY ANGIOPLASTY IMPLANT 05/18/2017 MELVINA MCNAIR MD, Ot E03.9 HYPOTHYROIDISM, UNSPECIFIED 05/18/2017 MELVINA MCNAIR MD, Ot E66.01 MORBID (SEVERE) OBESITY DUE TO EXCESS CA 05/18/2017 MELVINA MCNAIR MD, Ot I10 ESSENTIAL (PRIMARY) HYPERTENSION 05/18/2017 MELVINA MCNAIR MD, Ot I25.10 ATHSCL HEART DISEASE OF [place] CORONARY 05/18/2017 MELVINA MCNAIR MD, Ot I25.5 [...] ALFREDO 05/18/2017 MELVINA MCNAIR MD, Ot Z79.82 SENIOR LIVING (CURRENT) USE OF ASPIRIN 05/18/2017 MELVINA MCNAIR MD, Ot Z79.899 OTHER SENIOR LIVING (CURRENT) DRUG THERAPY 05/18/2017 MELVINA MCNAIR MD, [...] V74.8 SCREEN-BACTERIAL DIS NEC 07/25/2017 PIPPA DIMAS REGISTERED NURSE MATERNITY Ot 786.05 SHORTNESS OF BREATH 07/25/2017 PIPPA DIMAS REGISTERED NURSE MATERNITY Ot M17.0 BILATERAL PRIMARY OSTEOARTHRITIS OF [place]NEE 07/25/2017 PIPPA DIMAS REGISTERED NURSE MATERNITY Ot R19.00 INTRA-ABD AND PELVIC SWELLING, MASS AND 07/27/2017 Ot J45.909 UNSPECIFIED ASTHMA, UNCOMPLICATED 08/08/2017 Ot J45.909 UNSPECIFIED ASTHMA, UNCOMPLICATED 08/10/2017 RADHA JOHNSTON MD, Ot K21.9 GASTRO-ESOPHAGEAL REFLUX DISEASE WITHOUT 08/10/2017 RADHA JOHNSTON MD Ot Z01.818 ENCOUNTER FOR OTHER PREPROCEDURAL EXAMIN 08/10/2017 RADHA JOHNSTON MD Ot Z79.02 SENIOR LIVING (CURRENT) USE OF ANTITHROMBOTI 09/06/2017 RADHA JOHNSTON MD, Ot K21.9 GASTRO-ESOPHAGEAL REFLUX DISEASE WITHOUT 09/06/2017 RADHA JOHNSTON MD Ot Z01.818 ENCOUNTER FOR OTHER PREPROCEDURAL EXAMIN 09/06/2017 RADHA JOHNSTON MD, Ot K21.9 GASTRO-ESOPHAGEAL REFLUX DISEASE WITHOUT 09/06/2017 RADHA JOHNSTON MD Ot Z01.818 ENCOUNTER FOR OTHER PREPROCEDURAL EXAMIN 09/11/2017 RADHA JOHNSTON MD Ot E66.01 MORBID (SEVERE) OBESITY DUE TO EXCESS CA 09/11/2017 RADHA JOHNSTON MD Ot E78.00 PURE HYPERCHOLESTEROLEMIA, UNSPECIFIED 09/11/2017 RADHA JOHNSTON MD Ot I10 ESSENTIAL (PRIMARY) HYPERTENSION 09/11/2017 RADHA JOHNSTON MD Ot I25.10 ATHSCL HEART DISEASE OF [place] CORONARY 09/11/2017 RADHA JOHNSTON MD Ot K20.9 [...] (SEVERE) OBESITY DUE TO EXCESS CA 09/18/2017 RADHA JOHNSTON MD Ot E78.00 PURE HYPERCHOLESTEROLEMIA, UNSPECIFIED 09/18/2017 RADHA JOHNSTON MD Ot I10 ESSENTIAL (PRIMARY) HYPERTENSION 09/18/2017 RADHA JOHNSTON MD Ot I25.10 ATHSCL HEART DISEASE OF [place] CORONARY 09/18/2017 RADHA JOHNSTON MD Ot K20.9 ESOPHAGITIS, UNSPECIFIED 09/18/2017 RADHA JOHNSTON MD, Ot K25.9 GASTRIC ULCER, UNSP ACUTE OR CHRONIC, 09/18/2017 RADHA JOHNSTON MD Ot K26.9 DUODENAL ULCER, UNSP ACUTE OR CHRONIC 09/18/2017 RADHA JOHNSTON MD Ot K44.9 DIAPHRAGMATIC HERNIA WITHOUT OBSTRUCTION 09/18/2017 RADHA JOHNSTON MD Ot Z68.45 BODY MASS INDEX (BMI) 70 OR GREATER, ALFREDO 09/18/2017 RADHA JOHNSTON MD Ot Z95.5 PRESENCE OF CORONARY ANGIOPLASTY IMPLANT 10/24/2017 PRIYA WHITE FACC, VENUS FACP CCDS Ot E66.9 OBESITY, UNSPECIFIED 10/24/2017 PRIYA WHITE FACC, ALI FACP CCDS Ot G47.33 OBSTRUCTIVE SLEEP APNEA (ADULT) (PEDIATR 10/24/2017 PRIYA WHITE FACC, ALI FACP CCDS Ot I11.0 HYPERTENSIVE HEART DISEASE WITH HEART FA 10/24/2017 PRIYA WHITE FACC, VENUS FACP CCDS Ot I25.10 ATHSCL HEART DISEASE OF [place] CORONARY 10/24/2017 PRIYA WHITE FACC, ALI FACP CCDS Ot I42.0 DILATED CARDIOMYOPATHY 10/24/2017 PRIYA WHITE FACC, VENUS FACP CCDS Ot I44.69 OTHER FASCICULAR BLOCK 10/24/2017 PRIYA WHITE FACC, ALI FACP CCDS Ot I50.22 CHRONIC SYSTOLIC (CONGESTIVE) HEART FAIL 10/24/2017 PRIYA WHITE FACC, ALI FACP CCDS Ot K21.9 GASTRO-ESOPHAGEAL REFLUX DISEASE WITHOUT 11/14/2017 CANDY KULKARNI MD Ot E03.9 HYPOTHYROIDISM, UNSPECIFIED 11/14/2017 CANDY KULKARNI MD Ot E66.01 MORBID (SEVERE) OBESITY DUE TO EXCESS CA 11/14/2017 CANDY KULKARNI MD Ot E78.00 PURE HYPERCHOLESTEROLEMIA, UNSPECIFIED 11/14/2017 CANDY KULKARNI MD Ot F41.9 ANXIETY DISORDER, UNSPECIFIED 11/14/2017 CANDY KULKARNI MD Ot I11.0 HYPERTENSIVE HEART DISEASE WITH HEART FA 11/14/2017 CANDY KULKARNI MD Ot I25.10 ATHSCL HEART DISEASE OF [place] CORONARY 11/14/2017 CANDY KULKARNI MD Ot I50.9 HEART FAILURE, UNSPECIFIED 11/14/2017 CANDY KULKARNI MD Ot J45.909 UNSPECIFIED ASTHMA, UNCOMPLICATED 11/14/2017 CANDY KULKARNI MD Ot K21.9 GASTRO-ESOPHAGEAL REFLUX DISEASE WITHOUT 11/14/2017 CANDY KULKARNI MD Ot L03.115 CELLULITIS OF RIGHT LOWER LIMB 11/14/2017 CANDY KULKARNI MD Ot L03.116 CELLULITIS OF LEFT LOWER LIMB 11/14/2017 CANDY KULKARNI MD Ot S80.821A BLISTER (NONTHERMAL), RIGHT LOWER LEG, I 11/14/2017 CANDY KULKARNI MD Ot Z79.82 QUARRY BOSS (CURRENT) USE OF ASPIRIN 11/14/2017 CANDY KULKARNI MD Ot Z82.49 FAMILY HX OF [place] HEART DIS AND OTH DI 11/14/2017 CANDY KULKARNI MD Ot Z95.5 PRESENCE OF CORONARY ANGIOPLASTY IMPLANT 11/16/2017 CANDY KULKARNI MD Ot E03.9 HYPOTHYROIDISM, UNSPECIFIED 11/16/2017 CANDY KULKARNI MD Ot E66.01 MORBID (SEVERE) OBESITY DUE TO EXCESS CA 11/16/2017 CANDY KULKARNI MD Ot E78.00 PURE HYPERCHOLESTEROLEMIA, UNSPECIFIED 11/16/2017 CANDY KULKARNI MD Ot F41.9 ANXIETY DISORDER, UNSPECIFIED 11/16/2017 CANDY KULKARNI MD Ot I11.0 HYPERTENSIVE HEART DISEASE WITH HEART FA 11/16/2017 CANDY KULKARNI MD Ot I25.10 ATHSCL HEART DISEASE OF [place] CORONARY 11/16/2017 CANDY KULKARNI MD, Ot I50.9 HEART FAILURE, UNSPECIFIED 11/16/2017 CANDY KULKARNI MD, Ot J45.909 UNSPECIFIED ASTHMA, UNCOMPLICATED 11/16/2017 CANDY KULKARNI MD, Ot K21.9 GASTRO-ESOPHAGEAL REFLUX DISEASE WITHOUT 11/16/2017 CANDY KULKARNI MD, Ot L03.115 CELLULITIS OF RIGHT LOWER LIMB 11/16/2017 CANDY KULKARNI MD, Ot L03.116 CELLULITIS OF LEFT LOWER LIMB 11/16/2017 CANDY KULKARNI MD, Ot S80.821A BLISTER (NONTHERMAL), RIGHT LOWER LEG, I 11/16/2017 CANDY KULKARNI MD, Ot Z79.82 QUARRY BOSS (CURRENT) USE OF ASPIRIN 11/16/2017 CANDY KULKARNI MD, Ot Z82.49 FAMILY HX OF ISCHEM HEART DIS AND OTH DI 11/16/2017 CANDY KULKARNI MD, Ot Z95.5 PRESENCE OF CORONARY ANGIOPLASTY IMPLANT 11/24/2017 JANNY TROY MD Ot 397.0 TRICUSPID VALVE DISEASE 11/24/2017 JANNY TROY MD Ot 401.9 HYPERTENSION NOS 11/24/2017 JANNY TROY MD Ot 424.0 MITRAL VALVE DISORDER 11/24/2017 JANNY TROY MD Ot 786.09 RESPIRATORY ABNORM NEC 11/24/2017 JANNY TROY MD Ot 401.9 HYPERTENSION NOS 11/24/2017 JANNY TROY MD Ot 786.09 RESPIRATORY ABNORM NEC 11/24/2017 SVETA PORTER MD Ot 717.7 CHONDROMALACIA PATELLAE 11/24/2017 SVETA PORTER MD Ot V72.63 PRE-PROCEDURAL LABORATORY EXAMINATION 11/24/2017 SVETA PORTER MD Ot V74.8 SCREEN-BACTERIAL DIS NEC 11/24/2017 PIPPA DIMAS L REGISTERED NURSE MATERNITY Ot 786.05 SHORTNESS OF BREATH 11/24/2017 [place] DIMASA L REGISTERED NURSE MATERNITY Ot M17.0 BILATERAL PRIMARY OSTEOARTHRITIS OF [place] 11/24/2017 [place] DIMASA L REGISTERED NURSE MATERNITY Ot R19.00 INTRA-ABD AND PELVIC SWELLING, MASS AND 11/24/2017 Ot J45.909 UNSPECIFIED ASTHMA, UNCOMPLICATED 11/24/2017 PRIYA WHITE FAC, ALI FACP CCDS Ot E66.9 OBESITY, UNSPECIFIED 11/24/2017 PRIYA WHITE FACC, ALI FACP CCDS Ot G47.33 OBSTRUCTIVE SLEEP APNEA (ADULT) (PEDIATR 11/24/2017 PRIYA WHITE FACC, ALI FACP CCDS Ot I11.0 HYPERTENSIVE HEART DISEASE WITH HEART FA 11/24/2017 PRIYA WHITE FACC, ALI FACP CCDS Ot I25.10 ATHSCL HEART DISEASE OF [place] CORONARY 11/24/2017 PRIYA WHITE FAC, ALI FACP CCDS Ot I42.0 DILATED CARDIOMYOPATHY 11/24/2017 PRIYA WHITE FAC, ALI FACP CCDS Ot I44.69 OTHER FASCICULAR BLOCK 11/24/2017 PRIYA WHITE FACC, ALI FACP CCDS Ot I50.22 CHRONIC SYSTOLIC (CONGESTIVE) HEART FAIL 11/24/2017 PRIYA WHITE FACC, ALI FACP CCDS Ot K21.9 GASTRO-ESOPHAGEAL REFLUX DISEASE WITHOUT 01/20/2018 BANDAR REESE MD Ot E03.9 HYPOTHYROIDISM, UNSPECIFIED 01/20/2018 BANDAR REESE MD Ot E66.01 MORBID (SEVERE) OBESITY DUE TO EXCESS CA 01/20/2018 BANDAR REESE MD Ot E78.00 PURE HYPERCHOLESTEROLEMIA, UNSPECIFIED 01/20/2018 BANDAR REESE MD Ot F32.9 MAJOR DEPRESSIVE DISORDER, SINGLE EPISOD 01/20/2018 BANDAR REESE MD Ot F41.9 ANXIETY DISORDER, UNSPECIFIED 01/20/2018 BANDAR REESE MD Ot G25.81 RESTLESS LEGS SYNDROME 01/20/2018 BANDAR REESE MD Ot I11.0 HYPERTENSIVE HEART DISEASE WITH HEART FA 01/20/2018 BANDAR REESE MD Ot I25.10 ATHSCL HEART DISEASE OF [place] CORONARY 01/20/2018 BANDAR REESE MD Ot I50.9 HEART FAILURE, UNSPECIFIED 01/20/2018 BANDAR REESE MD Ot K21.9 GASTRO-ESOPHAGEAL REFLUX DISEASE WITHOUT 01/20/2018 BANDAR REESE MD Ot L03.116 CELLULITIS OF LEFT LOWER LIMB 01/20/2018 BANDAR REESE MD Ot M79.89 OTHER SPECIFIED SOFT TISSUE DISORDERS 01/20/2018 BANDAR REESE MD Ot Z79.82 QUARRY BOSS (CURRENT) USE OF ASPIRIN 01/20/2018 BANDAR REESE MD Ot Z87.59 PERSONAL HISTORY OF COMP OF PREG, CHLDBR 01/20/2018 BANDAR REESE MD Ot Z88.2 ALLERGY STATUS TO SULFONAMIDES STATUS 01/20/2018 BANDAR REESE MD Ot Z88.8 ALLERGY STATUS TO OTH DRUG/MEDS/BIOL SUB 01/20/2018 BANDAR REESE MD Ot Z95.5 PRESENCE OF CORONARY ANGIOPLASTY IMPLANT 01/22/2018 BANDAR REESE MD Ot E03.9 HYPOTHYROIDISM, UNSPECIFIED 01/22/2018 BANDAR REESE MD Ot E66.01 MORBID (SEVERE) OBESITY DUE TO EXCESS CA 01/22/2018 BANDAR REESE MD Ot E78.00 PURE HYPERCHOLESTEROLEMIA, UNSPECIFIED 01/22/2018 BANDAR REESE MD Ot F32.9 MAJOR DEPRESSIVE DISORDER, SINGLE EPISOD 01/22/2018 BANDAR REESE MD Ot F41.9 ANXIETY DISORDER, UNSPECIFIED 01/22/2018 BANDAR REESE MD Ot G25.81 RESTLESS LEGS SYNDROME 01/22/2018 BANDAR REESE MD Ot I11.0 HYPERTENSIVE HEART DISEASE WITH HEART FA 01/22/2018 BANDAR REESE MD Ot I25.10 ATHSCL HEART DISEASE OF [place] CORONARY 01/22/2018 BANDAR REESE MD Ot I50.9 HEART FAILURE, UNSPECIFIED 01/22/2018 BANDAR REESE MD Ot K21.9 GASTRO-ESOPHAGEAL REFLUX DISEASE WITHOUT 01/22/2018 BANDAR REESE MD Ot L03.116 CELLULITIS OF LEFT LOWER LIMB 01/22/2018 BANDAR REESE MD Ot M79.89 OTHER SPECIFIED SOFT TISSUE DISORDERS 01/22/2018 BANDAR REESE MD Ot Z79.82 QUARRY BOSS (CURRENT) USE OF ASPIRIN 01/22/2018 BANDAR REESE MD Ot Z87.59 PERSONAL HISTORY OF COMP OF PREG, CHLDBR 01/22/2018 BANDAR REESE MD Ot Z88.2 ALLERGY STATUS TO SULFONAMIDES STATUS 01/22/2018 BANDAR REESE MD Ot Z88.8 ALLERGY STATUS TO OTH DRUG/MEDS/BIOL SUB 01/22/2018 BANDAR REESE MD Ot Z95.5 PRESENCE OF CORONARY ANGIOPLASTY IMPLANT 01/22/2018 BANDAR REESE MD Ot E03.9 HYPOTHYROIDISM, UNSPECIFIED 01/22/2018 BANDAR REESE MD Ot E66.01 MORBID (SEVERE) OBESITY DUE TO EXCESS CA 01/22/2018 BANDAR REESE MD Ot E78.00 PURE HYPERCHOLESTEROLEMIA, UNSPECIFIED 01/22/2018 BANDAR REESE MD Ot F32.9 MAJOR DEPRESSIVE DISORDER, SINGLE EPISOD 01/22/2018 BANDAR REESE MD Ot F41.9 ANXIETY DISORDER, UNSPECIFIED 01/22/2018 BANDAR REESE MD Ot G25.81 RESTLESS LEGS SYNDROME 01/22/2018 BANDAR REESE MD Ot I11.0 HYPERTENSIVE HEART DISEASE WITH HEART FA 01/22/2018 BANDAR REESE MD Ot I25.10 ATHSCL HEART DISEASE OF [place] CORONARY 01/22/2018 BANDAR REESE MD Ot I50.9 HEART FAILURE, UNSPECIFIED 01/22/2018 BANDAR REESE MD Ot K21.9 GASTRO-ESOPHAGEAL REFLUX DISEASE WITHOUT 01/22/2018 BANDAR REESE MD Ot L03.116 CELLULITIS OF LEFT LOWER LIMB 01/22/2018 BANDAR REESE MD Ot M79.89 OTHER SPECIFIED SOFT TISSUE DISORDERS 01/22/2018 BANDAR REESE MD Ot Z79.82 QUARRY BOSS (CURRENT) USE OF ASPIRIN 01/22/2018 ABNDAR REESE MD Ot Z87.59 PERSONAL HISTORY OF COMP OF PREG, CHLDBR 01/22/2018 BANDAR REESE MD Ot Z88.2 ALLERGY STATUS TO SULFONAMIDES STATUS 01/22/2018 BANDAR REESE MD Ot Z88.8 ALLERGY STATUS TO OTH DRUG/MEDS/BIOL SUB 01/22/2018 BANDAR REESE MD Ot Z95.5 PRESENCE OF CORONARY ANGIOPLASTY IMPLANT 03/19/2018 JANNY TROY MD Ot 397.0 TRICUSPID VALVE DISEASE 03/19/2018 JANNY TROY MD Ot 401.9 HYPERTENSION NOS 03/19/2018 JANNY TROY MD Ot 424.0 MITRAL VALVE DISORDER 03/19/2018 JANNY TROY MD Ot 786.09 RESPIRATORY ABNORM NEC 03/19/2018 JANNY TROY MD Ot 401.9 HYPERTENSION NOS 03/19/2018 JANNY TROY MD Ot 786.09 RESPIRATORY ABNORM NEC 03/19/2018 SVETA PORTER MD Ot 717.7 CHONDROMALACIA PATELLAE 03/19/2018 SVETA PORTER MD Ot V72.63 PRE-PROCEDURAL LABORATORY EXAMINATION 03/19/2018 SVETA PORTER MD Ot V74.8 SCREEN-BACTERIAL DIS NEC 03/19/2018 MADL, PIPPA L REGISTERED NURSE MATERNITY Ot 786.05 SHORTNESS OF BREATH 03/19/2018 MADL, PIPPA L REGISTERED NURSE MATERNITY Ot M17.0 BILATERAL PRIMARY OSTEOARTHRITIS OF [place] 03/19/2018 MADL, PIPPA L REGISTERED NURSE MATERNITY Ot R19.00 INTRA-ABD AND PELVIC SWELLING, MASS AND 03/19/2018 Ot J45.909 UNSPECIFIED ASTHMA, UNCOMPLICATED 03/19/2018 PRIYA WHITE FACC, ALI FACP CCDS Ot E66.9 OBESITY, UNSPECIFIED 03/19/2018 PRIYA WHITE FACC, ALI FACP CCDS Ot G47.33 OBSTRUCTIVE SLEEP APNEA (ADULT) (PEDIATR 03/19/2018 PRIYA WHITE FACC, ALI FACP CCDS Ot I11.0 HYPERTENSIVE HEART DISEASE WITH HEART FA 03/19/2018 PRIYA WHITE FACC, ALI FACP CCDS Ot I25.10 ATHSCL HEART DISEASE OF [place] CORONARY 03/19/2018 PRIYA WHITE FACC, ALI FACP CCDS Ot I42.0 DILATED CARDIOMYOPATHY 03/19/2018 PRIYA WHITE FACC, ALI FACP CCDS Ot I44.69 OTHER FASCICULAR BLOCK 03/19/2018 PRIYA WHITE FACC, ALI FACP CCDS Ot I50.22 CHRONIC SYSTOLIC (CONGESTIVE) HEART FAIL 03/19/2018 PRIYA WHITE FACC, ALI FACP CCDS Ot K21.9 GASTRO-ESOPHAGEAL REFLUX DISEASE WITHOUT Procedures Code [place] [address] A1C (IN-HOUSE) 11/30/2012 67948 BNP 12/05/2012 98215 MEASURE BLOOD OXYGEN LEVEL 12/05/2012 10150 UA LONG DIP 03/14/2013 38957 PULMONARY FUNCTION TEST (IN- HOUSE) 04/26/2013 05359 BRONCHODILATION PRE/POST 04/26/2013 81963 RESPIRATORY FLOW VOLUME LOOP 04/26/2013 80041 OXIMETRY 04/29/2013 91499 JOINT INJECTION- LARGE JOINT (SPECIFY MEDCIN DESCRIPTION) 08/22/2013 27673 XRAY KNEE RIGHT 1 OR 2 VIEWS 10/03/2013 PHYSICAL PHYSICAL THERAPY, VIA JEREMY 10/03/2013 J0696 ROCEPHIN INJ 1 g 10/30/2013 53178 THERAPUTIC INJ SQ/IM 10/30/2013 81530 ROUTINE VENIPUNCTURE 11/07/2013 2189781 GFR CALC (RESULT ONLY) 11/08/2013 00844 BMP 11/08/2013 Sveta Wilson 11/12/2013 74606 ROUTINE VENIPUNCTURE 01/08/2014 2721936 GFR CALC (RESULT ONLY) 01/09/2014 27190 BMP 01/09/2014 17292 BNP 01/10/2014 70394 XRAY CHEST 2 VIEW 01/22/2014 44904 PULMONARY FUNCTION TEST 01/22/2014 61019 A1C (IN-HOUSE) 01/22/2014 53558 OXIMETRY 02/25/2014 87486 PULMONARY FUNCTION TEST 02/25/2014 41065 ROUTINE VENIPUNCTURE 03/20/2014 58383 A1C (IN-HOUSE) 03/20/2014 84553 CBC 03/20/2014 14594 CMP 03/20/2014 32687 LIPID PANEL 03/20/2014 8284751 GFR CALC (RESULT ONLY) 03/20/2014 82277 TSH 03/20/2014 04548 BNP 03/21/2014 SVETA WILSON 03/24/2014 10146 ROUTINE VENIPUNCTURE 06/17/2014 27748 A1C (IN-HOUSE) 06/17/2014 0822402 GFR CALC (RESULT ONLY) 06/17/2014 81315 CMP 06/17/2014 85848 TSH 06/17/2014 87900 OXIMETRY 06/18/2014 65107 ROUTINE VENIPUNCTURE 09/09/2014 57665 CMP 09/09/2014 48109 CBC 09/09/2014 11996 OXIMETRY 11/26/2014 04897 ROUTINE VENIPUNCTURE 02/16/2015 86201 CBC 02/16/2015 55027 MYCOPLASMA ANTIBODY 02/16/2015 45780 OXIMETRY 02/16/2015 53897 OXIMETRY 03/02/2015 Results Test Result Range Automated [...] culture - 05/14/17 08:50 Bacterial urine culture [id number] NRG COLONY COUNT 10,000/ML - 100,000/ML NRG [...] human chorionic gonadotropin (hCG) measurement NEGATIVE NEGATIVE TSH - 02/13/18 17:25 TSH 2.88 mIU/L NRG TSH - 04/26/18 11:24 TSH 2.75 mIU/L NRG Complete blood count (CBC) with automated white blood cell (WBC) differential - 05/03/18 14:00 Blood leukocytes automated count (number/volume) 8.9 10*3/uL 4.3-11.0 Blood erythrocytes automated count (number/volume) 4.37 10*6/uL 4.35-5.85 Venous blood hemoglobin measurement (mass/volume) 13.3 g/dL 11.5-16.0 Blood hematocrit (volume fraction) 41 % 35-52 Automated erythrocyte mean corpuscular volume 95 [foz_us] 80-99 Automated erythrocyte mean corpuscular hemoglobin (mass per erythrocyte) 30 pg 25-34 Automated erythrocyte mean corpuscular hemoglobin concentration measurement ( mass/volume) 32 g/dL 32-36 Automated erythrocyte distribution width ratio 14.0 % 10.0-14.5 Automated blood platelet count (count/volume) 218 10*3/uL 130-400 Automated blood platelet mean volume measurement 9.5 [foz_us] 7.4-10.4 Automated blood neutrophils/100 leukocytes 79 % 42-75 Automated blood lymphocytes/100 leukocytes 13 % 12-44 Blood monocytes/100 leukocytes 5 % 0-12 Automated blood eosinophils/100 leukocytes 3 % 0-10 Automated blood basophils/100 leukocytes 0 % 0-10 Blood neutrophils automated count (number/volume) 7.0 10*3 1.8-7.8 Blood lymphocytes automated count (number/volume) 1.2 10*3 1.0-4.0 Blood monocytes automated count (number/volume) 0.4 10*3 0.0-1.0 Automated eosinophil count 0.2 10*3/uL 0.0-0.3 Automated blood basophil count (count/volume) 0.0 10*3/uL 0.0-0.1 PT panel in platelet poor plasma by coagulation assay - 05/03/18 14:00 Prothrombin time (PT) in platelet poor plasma by coagulation assay 13.5 s 12.2-14.7 INR in platelet poor plasma or blood by coagulation assay 1.0 0.8-1.4 Activated partial thromboplastin time (aPTT) in platelet poor plasma bycoagulation assay - 05/03/18 14:00 Activated partial thromboplastin time (aPTT) in platelet poor plasma bycoagulation assay 28 s 24-35 Serum or plasma choriogonadotropin ( test) detection - 05/03/18 14:00 Serum or plasma choriogonadotropin ( test) detection NEGATIVE NEGATIVE Comprehensive metabolic panel - 05/03/18 14:00 Serum or plasma sodium measurement (moles/volume) 138 mmol/L 135-145 Serum or plasma potassium measurement (moles/volume) 4.4 mmol/L 3.6-5.0 Serum or plasma chloride measurement (moles/volume) 106 mmol/L 98-107 Carbon dioxide 22 mmol/L 21-32 Serum or plasma anion gap determination (moles/volume) 10 mmol/L 5-14 Serum or plasma urea nitrogen measurement (mass/volume) 16 mg/dL 7-18 Serum or plasma creatinine measurement (mass/volume) 1.31 mg/dL 0.60-1.30 Serum or plasma urea nitrogen/creatinine mass ratio 12 NRG Serum or plasma creatinine measurement with calculation of estimated glomerular filtration rate 45 NRG Serum or plasma glucose measurement (mass/volume) 112 mg/dL 70-105 Serum or plasma calcium measurement (mass/volume) 9.4 mg/dL 8.5-10.1 Serum or plasma total bilirubin measurement (mass/volume) 0.6 mg/dL 0.1-1.0 Serum or plasma alkaline phosphatase measurement (enzymatic activity/volume) 87 U/L 40-136 Serum or plasma aspartate aminotransferase measurement (enzymatic activity/ volume) 13 U/L 5-34 Serum or plasma alanine aminotransferase measurement (enzymatic activity/volume ) 10 U/L 0-55 Serum or plasma protein measurement (mass/volume) 8.3 g/dL 6.4-8.2 Serum or plasma albumin measurement (mass/volume) 3.8 g/dL 3.2-4.5 Magnesium - 05/03/18 14:00 Magnesium 2.0 mg/dL 1.8-2.4 Serum or plasma creatine kinase measurement (enzymatic activity/volume) - 05/03 14:00 Serum or plasma creatine kinase measurement (enzymatic activity/volume) 23 U/L 29-168 Serum or plasma creatine kinase MB measurement (enzymatic activity/volume) - 14:00 Serum or plasma creatine kinase MB measurement (enzymatic activity/volume) 1.5 ng/mL <6.6 Serum or plasma troponin i.cardiac measurement (mass/volume) - 05/03/18 14:00 Serum or plasma troponin i.cardiac measurement (mass/volume) < ng/ mL <0.30 Serum or plasma amylase measurement (enzymatic activity/volume) - 05/03/18 14: 00 Serum or plasma amylase measurement (enzymatic activity/volume) 42 U /L 25-125 Serum or plasma lithium measurement (moles/volume) - 05/03/18 14:00 BNP level 92.6 pg/mL <100.0 Lipase - 05/03/18 14:00 Lipase 30 U/L 8-78 Encounters ACCT No. Visit Date/Time Discharge Status Pt. Type Provider Facility Loc./Unit Complaint [id number] 03/02/2015 11:40:00 03/02/2015 23:59:59 CLS Outpatient MADArjun MAZANPIPPA [id number] 02/16/2015 10:12:00 02/16/2015 23:59:59 CLS Outpatient MADL BOX CAR BRACERPIPPA [id number] 01/27/2015 13:38:00 01/27/2015 23:59:59 CLS Outpatient BOWEN SEXTON MICKEY Ontiveros [id number] 11/25/2014 16:59:00 11/25/2014 23:59:59 CLS Outpatient NICKOLAS HALL APRN [id number] 09/09/2014 15:31:00 09/09/2014 23:59:59 CLS Outpatient LUX WISEMAN DOMario Ontiveros [id number] 06/17/2014 09:05:00 06/17/2014 23:59:59 CLS Outpatient MADL BOX CAR BRACERPIPPA [id number] 06/17/2014 09:05:00 06/17/2014 23:59:59 CLS Outpatient LUX WISEMAN DOMario Ontiveros [id number] 03/20/2014 08:28:00 03/20/2014 23:59:59 CLS Outpatient AAKASH PETTIT APRN [id number] 03/19/2014 17:56:00 03/19/2014 23:59:59 CLS Outpatient AAKASH PETTIT APRN [id number] 02/25/2014 14:53:00 02/25/2014 23:59:59 CLS Outpatient LUX WISEMAN DOMario Ontiveros [id number] 02/25/2014 14:53:00 02/25/2014 23:59:59 CLS Outpatient BOWEN SEXTONMICKEY [id number] 02/17/2014 17:31:00 02/17/2014 23:59:59 CLS Outpatient BOWEN SEXTONMICKEY [id number] 01/22/2014 13:31:00 01/22/2014 23:59:59 CLS Outpatient DIO CHI MD [id number] 01/22/2014 13:31:00 01/22/2014 23:59:59 CLS Outpatient DIO CHI MD [id number] 01/08/2014 15:04:00 01/08/2014 23:59:59 CLS Outpatient DIO CHI MD [id number] 01/08/2014 15:04:00 01/08/2014 23:59:59 CLS Outpatient DIO CHI MD [id number] 11/14/2013 18:19:00 11/14/2013 23:59:59 CLS Outpatient INOCENTE WEIR APRN [id number] 11/07/2013 15:47:00 11/07/2013 23:59:59 CLS Outpatient JORDEN MEZA MD [id number] 11/07/2013 15:47:00 11/07/2013 23:59:59 CLS Outpatient JORDEN MEZA MD [id number] 10/30/2013 14:16:00 10/30/2013 23:59:59 CLS Outpatient BOWEN SEXTONMICKEY [id number] 10/30/2013 14:16:00 10/30/2013 23:59:59 CLS Outpatient WISEMAN MICKEY [id number] 10/16/2013 16:09:00 10/16/2013 23:59:59 CLS Outpatient DIO CHI MD [id number] 10/03/2013 13:43:00 10/03/2013 23:59:59 CLS Outpatient BOWEN SEXTON MICKEY K [id number] 10/03/2013 13:43:00 10/03/2013 23:59:59 CLS Outpatient BOWEN SEXTONMICKEY [id number] 10/02/2013 12:43:00 10/02/2013 23:59:59 CLS Outpatient JAY EARLY APRN [id number] 09/04/2013 13:30:00 09/04/2013 23:59:59 CLS Outpatient DIO CHI MD [id number] 08/22/2013 14:52:00 08/22/2013 23:59:59 CLS Outpatient MICKEY WISEMAN DO [id number] 05/21/2013 13:41:00 05/21/2013 23:59:59 CLS Outpatient DIO CHI MD [id number] 12/05/2012 13:56:00 12/05/2012 23:59:59 CLS Outpatient JAY EARLY APRN [id number] 12/05/2012 13:56:00 12/05/2012 23:59:59 CLS Outpatient JAY EARLY APRN [id number] 11/30/2012 08:54:00 11/30/2012 23:59:59 CLS Outpatient JORDEN MEZA MD [id number] 11/30/2012 08:54:00 11/30/2012 23:59:59 CLS Outpatient [id number] 11/16/2012 14:40:00 11/16/2012 23:59:59 CLS Outpatient MICKEY WISEMAN DO [id number] 09/14/2012 10:34:00 09/14/2012 23:59:59 CLS Outpatient JORDEN MEZA MD [id number] 04/26/2013 07:56:00 Document Registration [id number] 04/11/2013 16:03:00 Document Registration [id number] 04/11/2013 16:03:00 Document Registration [id number] 03/26/2013 13:53:00 Document Registration [id number] 03/14/2013 14:04:00 Document Registration [email or web address] 04/13/2015 07:24:59 ACT Document Registration [id number] 02/13/2018 15:40:00 02/13/2018 23:59:59 CLS Outpatient PIPPA DIMAS APRN [facility] [id number] 04/26/2018 10:20:00 Document Registration [id number] 02/13/2018 15:40:00 Document Registration [id number] 04/04/2018 20:00:00 04/04/2018 23:59:59 CLS Preadmit LUCAS RAMIREZ APRN [facility] SLEEP G47.30 SLEEP APNEA [id number] 03/21/2018 11:45:00 03/21/2018 23:59:59 CLS Preadmit LUCAS RAMIREZ APRN [facility] RT J45.909 ASTHMA [id number] 01/20/2018 03:08:00 01/20/2018 04:08:00 DIS Emergency BANDAR REESE MD [facility] ER LEFT LEG REDNESS,BURNING THROBBING [id number] 11/14/2017 21:34:00 11/14/2017 22:58:00 DIS Emergency CANDY KULKARNI MD [facility] ER BLISTERS ON LEGS [id number] 09/21/2017 11:50:00 09/21/2017 23:59:59 CLS Outpatient PRIYA WHITE FACC, VENUS WILKERSON CCDS [facility] CARD CAD [id number] 09/11/2017 08:54:00 09/11/2017 15:00:00 DIS Outpatient RADHA JOHNSTON MD [facility] ENDO GERD [id number] 09/06/2017 05:35:00 09/06/2017 09:38:00 DIS Outpatient RADHA JOHNSTON MD [facility] PREOP EGD WITH BIOPSY [id number] 08/14/2017 09:30:00 08/14/2017 23:59:59 CLS Preadmit RADHA JOHNSTON MD [facility] ENDO GERD [id number] 08/10/2017 05:32:00 08/10/2017 14:37:00 DIS Outpatient RADHA JOHNSTON MD [facility] PREOP EGD WITH BIOPSY [id number] 08/07/2017 20:00:00 08/07/2017 23:59:59 CLS Preadmit LUCAS RAMIREZ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
[2018-05-03] MEDS: SACUBITRIL/VALSARTAN 24/26 MG (ENTRESTO) TABLET PO SCH (20:36)
[2018-05-03] MEDS: meTOprolol TARTRATE 50 MG (LOPRESSOR) TAB PO SCH (20:36)
[2018-05-03] MEDS ORDERED: FUROSEMIDE 40 MG/4 ML INJ (LASIX) IV NR (21:00)
[2018-05-03 21:44] LABS: INR 1.1 (0.8-1.4); PROTHROMBIN TIME PATIENT 14.3 SEC (12.2-14.7)
[2018-05-03 21:52] LABS: CREATINE KINASE 21 U/L (29-168)
[2018-05-03 21:58] LABS: MYOGLOBIN SERUM 51.7 NG/ML (10.0-92.0)
[2018-05-03] MEDS: inSUlin ASPART (NovoLOG) 1 UNIT/0.01 ML (CHARGE PER UNIT) SC SCH (22:38)
[2018-05-03] MEDS: CATHETER FLUSH 10 ML SYR IV SCH (22:38)
[2018-05-04 01:00] VITALS: BP 141/96
[2018-05-04] MEDS: NITROGLYCERIN 2% OINT 1 GM UNIT DOSE PACKET TOP SCH ×2 (01:51→05:29)
[2018-05-04 03:00] VITALS: BP 147/84
[2018-05-04 05:00] VITALS: BP 127/78
[2018-05-04] MEDS: CATHETER FLUSH 10 ML SYR IV SCH (05:31)
[2018-05-04] MEDS: inSUlin ASPART (NovoLOG) 1 UNIT/0.01 ML (CHARGE PER UNIT) SC SCH (06:05)
[2018-05-04 06:37] LABS: BASOPHILS % (AUTO) 0 % (0-10); EOSINOPHILS # (AUTO) 0.2 10^3/uL (0.0-0.3); EOSINOPHILS % (AUTO) 2 % (0-10); HEMATOCRIT 42 % (35-52); HEMOGLOBIN 13.3 G/DL (11.5-16.0); LYMPHOCYTES # (AUTO) 1.3 X 10^3 (1.0-4.0); LYMPHOCYTES % (AUTO) 14 % (12-44); MEAN CORPUSCULAR HEMOGLOBIN 30 PG (25-34); MEAN CORPUSCULAR HGB CONC 32 G/DL (32-36); MEAN CORPUSCULAR VOLUME 94 FL (80-99); MEAN PLATELET VOLUME 9.3 FL (7.4-10.4); MONOCYTES # (AUTO) 0.5 X 10^3 (0.0-1.0); MONOCYTES % (AUTO) 6 % (0-12); NEUTROPHILS # (AUTO) 7.1 X 10^3 (1.8-7.8); NEUTROPHILS % (AUTO) 78 % (42-75); PLATELET COUNT 233 10^3/uL (130-400); RED BLOOD COUNT 4.43 10^6/uL (4.35-5.85); RED CELL DISTRIBUTION WIDTH 14.1 % (10.0-14.5); WHITE BLOOD COUNT 9.1 10^3/uL (4.3-11.0)
--- NOTE | 2018-05-04 06:44 | History & Physicial (CHS) ---
HPI History of Present Illness: Super morbidly obese female with known CAD presented to ED yesterday with report of chest pain - aching in upper retrosternal area, no radiation; shortness of breath. Feels her edema in her right leg is worse than before. Denies palpitations or syncope. Placed in observation for trending troponins and consult to cardiology, with whom she follows due to her known history of CAD , HTN, Hyperlipidemia, and Coronary Stenting in the past, as well as previously low EF. Source: patient, RN/MD, RN notes reviewed, old records Exam Limitations: no limitations Date seen by provider: May 04, 2018 Time Seen by Provider: 09:34 Attending Physician Ivonne Arango DO [facility] Consult Cardiology Date of Admission May 03, 2018 at 15:05 Home Medications Home Medications Reviewed patient Home Medication Reconciliation performed by pharmacy medication reconciliations smt technician and/or nursing. Patients Allergies have been reviewed. Allergies Coded Allergies: sulfamethoxazole (Unverified Allergy, Unknown, 11/14/17) trimethoprim (Unverified Allergy, Unknown, 04/23/06) QWK-Omziwz-Qgnhmu Hx Patient Social History Marrital Status: Living Status: lives with spouse Employed/Student: unemployed Alcohol Use: Denies Use Recreational Drug Use: No Smoking Status: Never a Smoker 2nd Hand Smoke Exposure: No Recent Foreign Travel: No Contact w/other who traveled: No Recent Hopitalizations: No Recent Infectious Disease Expo: No Physical Abuse Screen: No Sexual Abuse: No Immunizations Up To Date Date of Influenza Vaccine: Aug 20, 2012 Past Medical History Past Medical History 1. Obstructive Sleep Apnea- using only O2 (not using CPAP) 2. Hypertension 3. Hyperlipidemia 4. Chronic Left Bundle Branch Block 5. Chronic peripheral edema secondary to extreme morbid obesity and lymphedema 6. Extreme Morbid Obesity 7. Restless legs 8. GERD 9. Hypothyroidism 10. CAD 11. Hx of cornary stenting x2 - RCA, LAD 07/2016 12. Reduced EF, LVEF 40-45% 04/2018; Systolic LV Dysfunction 13. Chronic pain 14. Anxiety 15. Mood Disorder 16. Urge Incontinence 17. Dilated Cardiomyopathy 18. Chronic Stasis Dermatitis Past Surgical History 1. Right knee arthroscopy 12/04 Ge[facility]ani 2. Cholecystectomy - 1995 3. - 1989 4. Cardiac Cath [address] Puentes with no obstructive disease 5. Angioplasty 2005 6. RODRIGO 2012 7. Bilateral arthroscopic knee surgery - 2007, 2008 8. Cardiac Cath with Stent Placement RCA and LAD by Jed - 07/2016 Family Medical History Significant Family History: Heart Disease, Vascular Disease Family History: FH: COPD (chronic obstructive pulmonary disease) 19 MOTHER FH: congestive heart failure 19 MOTHER FH: renal failure 19 MOTHER Review of Systems (CHC) Constitutional: see HPI EENTM: no symptoms reported Respiratory: see HPI Cardiovascular: see HPI Gastrointestinal: no symptoms reported Genitourinary: no symptoms reported : No Musculoskeletal: no symptoms reported Skin: see HPI Psychiatric/Neurological: No Symptoms Reported Reviewed Test Results Reviewed Test Results Lab Laboratory Tests Test 05/03/18 14:00 05/03/18 18:50 05/03/18 21:20 05/03/18 22:00 Range/Units White Blood Count 8.9 4.3-11.0 10^3/uL Red Blood Count 4.37 4.35-5.85 10^6/uL Hemoglobin 13.3 11.5-16.0 G/DL Hematocrit 41 35-52 % Mean Corpuscular Volume 95 80-99 FL Mean Corpuscular Hemoglobin 30 25-34 PG Mean Corpuscular Hemoglobin Concent 32 32-36 G/DL Red Cell Distribution Width 14.0 10.0-14.5 % Platelet Count 218 130-400 10^3/uL Mean Platelet Volume 9.5 7.4-10.4 FL Neutrophils (%) (Auto) 79 H 42-75 % Lymphocytes (%) (Auto) 13 12-44 % Monocytes (%) (Auto) 5 0-12 % Eosinophils (%) (Auto) 3 0-10 % Basophils (%) (Auto) 0 0-10 % Neutrophils # (Auto) 7.0 1.8-7.8 X 10^3 Lymphocytes # (Auto) 1.2 1.0-4.0 X 10^3 Monocytes # (Auto) 0.4 0.0-1.0 X 10^3 Eosinophils # (Auto) 0.2 0.0-0.3 10^3/uL Basophils # (Auto) 0.0 0.0-0.1 10^3/uL Prothrombin Time 13.5 14.3 12.2-14.7 SEC INR Comment 1.0 1.1 0.8-1.4 Activated Partial Thromboplast Time 28 27 24-35 SEC Sodium Level 138 135-145 MMOL/L Potassium Level 4.4 3.6-5.0 MMOL/L Chloride Level 106 98-107 MMOL/L Carbon Dioxide Level 22 21-32 MMOL/L Anion Gap 10 5-14 MMOL/L Blood Urea Nitrogen 16 7-18 MG/DL Creatinine 1.31 H 0.60-1.30 MG/DL Estimat Glomerular Filtration Rate 45 BUN/Creatinine Ratio 12 Glucose Level 112 H 70-105 MG/DL Calcium Level 9.4 8.5-10.1 MG/DL Magnesium Level 2.0 1.8-2.4 MG/DL Total Bilirubin 0.6 0.1-1.0 MG/DL Aspartate Amino Transf (AST/SGOT) 13 5-34 U/L Alanine Aminotransferase (ALT/SGPT) 10 0-55 U/L Alkaline Phosphatase 87 40-136 U/L Total Creatine Kinase 23 L 21 L 29-168 U/L Creatine Kinase MB 1.5 <6.6 NG/ML Troponin I < 0.30 < 0.30 <0.30 NG/ML B-Type Natriuretic Peptide 92.6 <100.0 PG/ML Total Protein 8.3 H 6.4-8.2 GM/DL Albumin 3.8 3.2-4.5 GM/DL Amylase Level 42 25-125 U/L Lipase 30 8-78 U/L Serum Test, Qualitative NEGATIVE NEGATIVE Urine Color YELLOW Urine Clarity VERY CLOUDY H Urine pH 6 5-9 Urine Specific [place] 1.005 L 1.016-1.022 Urine Protein NEGATIVE NEGATIVE Urine Glucose (UA) NEGATIVE NEGATIVE Urine Ketones NEGATIVE NEGATIVE Urine Nitrite NEGATIVE NEGATIVE Urine Bilirubin NEGATIVE NEGATIVE Urine Urobilinogen NORMAL NORMAL MG/DL Urine Leukocyte Esterase 2+ H NEGATIVE Urine RBC (Auto) 2+ H NEGATIVE Urine RBC 10-25 H /HPF Urine WBC 2-5 /HPF Urine Squamous Epithelial Cells >50 H /HPF Urine Crystals NONE /LPF Urine Bacteria LARGE H /HPF Urine Casts NONE /LPF Urine Mucus NEGATIVE /LPF Urine Culture Indicated NO Myoglobin 51.7 10.0-92.0 NG/ML Glucometer 120 H 70-110 MG/DL Test 05/04/18 05:38 05/04/18 06:17 Range/Units Glucometer 102 70-110 MG/DL White Blood Count 9.1 4.3-11.0 10^3/uL Red Blood Count 4.43 4.35-5.85 10^6/uL Hemoglobin 13.3 11.5-16.0 G/DL Hematocrit 42 35-52 % Mean Corpuscular Volume 94 80-99 FL Mean Corpuscular Hemoglobin 30 25-34 PG Mean Corpuscular Hemoglobin Concent 32 32-36 G/DL Red Cell Distribution Width 14.1 10.0-14.5 % Platelet Count 233 130-400 10^3/uL Mean Platelet Volume 9.3 7.4-10.4 FL Neutrophils (%) (Auto) 78 H 42-75 % Lymphocytes (%) (Auto) 14 12-44 % Monocytes (%) (Auto) 6 0-12 % Eosinophils (%) (Auto) 2 0-10 % Basophils (%) (Auto) 0 0-10 % Neutrophils # (Auto) 7.1 1.8-7.8 X 10^3 Lymphocytes # (Auto) 1.3 1.0-4.0 X 10^3 Monocytes # (Auto) 0.5 0.0-1.0 X 10^3 Eosinophils # (Auto) 0.2 0.0-0.3 10^3/uL Basophils # (Auto) 0.0 0.0-0.1 10^3/uL Radiology Date of Exam: 05/03/18 CHEST 1 VIEW, AP/PA ONLY Indication: Chest pain. Time of exam: 2:29 PM Correlation is made with prior study from 07/25/2017. The study is somewhat compromised due to portable technique and patient body habitus. There appears to be some central congestion. No overt failure is seen. No infiltrate or effusion is detected. There is no pneumothorax. Impression: Central congestion. Physical Exam-(CHC) Physical Exam Vital Signs VS - Last 72 Hours, by Label 05/03/18 05/03/18 05/03/18 05/03/18 13:55 17:30 18:05 18:30 Temp 98.0 97.8 Pulse 113 103 98 103 Resp 20 22 20 B/P (MAP) 189/109 (135) 161/107 139/91 (107) 149/66 (93) Pulse Ox 95 94 96 96 O2 Delivery Room Air Room Air Room Air 05/03/18 05/03/18 05/03/18 05/03/18 18:57 19:00 19:00 19:15 Pulse 131 105 103 105 Resp 20 20 B/P (MAP) 142/89 (106) 163/96 (118) Pulse Ox 94 98 O2 Delivery Room Air Room Air 05/03/18 05/03/18 05/03/18 05/03/18 19:25 19:30 20:00 21:00 Pulse 109 109 Resp 20 20 B/P (MAP) 141/78 (99) 148/70 (96) Pulse Ox 93 93 O2 Delivery Room Air Room Air Room Air Room Air 05/03/18 05/03/18 05/03/18 05/04/18 21:00 22:00 23:00 01:00 Temp 98.6 Pulse 107 98 80 100 Resp 20 20 20 B/P (MAP) 144/76 (98) 164/89 (114) 114/66 (82) Pulse Ox 93 96 95 O2 Delivery Room Air Room Air Room Air 05/04/18 05/04/18 05/04/18 05/04/18 01:00 03:00 05:00 06:53 Temp 99.1 97.7 97.7 97.9 Pulse 77 86 84 90 Resp 18 18 20 20 B/P (MAP) 141/96 (111) 147/84 (105) 127/78 (94) 150/90 (110) Pulse Ox 94 95 94 95 O2 Delivery Room Air Room Air Room Air Room Air 05/04/18 05/04/18 05/04/18 07:00 08:48 10:35 Temp 98.3 Pulse 88 81 Resp 20 B/P (MAP) 151/76 (101) Pulse Ox 98 O2 Delivery Room Air Capillary Refill : Less Than 3 Seconds General Appearance: WD/WN, no apparent distress Eyes: Bilateral Eye Normal Inspection, Bilateral Eye EOMI HEENT: normal ENT inspection; No scleral icterus (R), No scleral icterus (L), No photophobia Neck: non-tender, full range of motion, supple, normal inspection Respiratory: chest non-tender, lungs clear, normal breath sounds, no respiratory distress, no accessory muscle use; No rales, No rhonchi, No wheezing Cardiovascular: regular rate, rhythm, no gallop, systolic murmur Gastrointestinal: normal bowel sounds, non tender, soft, no pulsatile mass; No guarding, No rebound; other (morbidly obese) Rectal: deferred Extremities: non-tender, no calf tenderness, inflammation (chronic venous stasis, ulceration on right leg), swelling Neurologic/Psychiatric: load dispatcher local II-XII nml as tested, alert, normal mood/affect, oriented x 3 Skin: normal color, warm/dry, other (chronic venous stasis changes bilateral lower extremities) Assessment/Plan Assessment/Plan Admission Dx Chest Pain Edema Dyspnea Exacerbation of Chronic Systolic Heart Failure Super Morbid Obesity, BMI 84.7 CAD of [place] Vessel Hyperlipidemia Hypothyroidism Chronic Pain HTN Admission Status: Observation (1) Edema Status: Chronic Assessment & Plan: 05/04 -chronic issue for patient -due to body habitus, difficult to discern new edema -BNP not significantly elevated on admission -pt has appt with lymphedema clinic in [place] today and is requesting early discharge so she can make it to appt -cleared by cardiology, no med changes, will discharge this AM so patient can keep appt with Lymphedema Clinic Qualifiers: Qualified Codes: R60.9 - Edema, unspecified (2) Chronic pain Status: Chronic Assessment & Plan: 05/04 -will resume home medications for pain control if needed -no complaints of pain -discharge this morning, no medication changes Qualifiers: Qualified Codes: G89.29 - Other chronic pain (3) Morbid obesity with BMI of 70 and over, adult Status: Chronic (4) Dependence on supplemental oxygen Status: Chronic Assessment & Plan: 05/04 -uses at night; has sleep apnea but will not wear CPAP (5) Chest pain Status: Resolved Assessment & Plan: 05/04 -2-3 days of retrosternal discomfort and pressure without radiation -cardiology consulted -troponins negative initially, trended and remained negative -pt reports this AM chest pain has resolved and she would like discharge -cleared by cardiology for discharge Qualifiers: Qualified Codes: R07.9 - Chest pain, unspecified (6) HTN (hypertension) Status: Chronic Assessment & Plan: 05/04 -cardiology consulted, will defer to their management -per cardiology, HTN is somewhat labile -continue medications as prior to discharge -discharge to home; no medication changes Qualifiers: Qualified Codes: I10 - Essential (primary) hypertension (7) Hx of congestive heart failure Status: Chronic Assessment & Plan: 05/04 -appears previous LVEF was ~20% per cardiology notes,with plans to repeat echo today -will monitor for results and defer management to cardiology -repeat echo done this morning, EF 40-45 %, reduced LV systolic function -no medication changes -okay to discharge, pt to follow up with cardiology on outpatient basis (8) Hx of coronary artery disease Status: Chronic Assessment & Plan: 05/04 -known LAD disease from previous cath -stenting in the past - RCA and LAD in 07/[address] Adkins -defer to cardiology management (9) Chronic kidney disease Status: Chronic Assessment & Plan: 05/04 -appears pt baseline to be ~1.29, so admission value of 1.31 is not significantly different from previous baseline -discharge to home today Qualifiers: Qualified Codes: N18.9 - Chronic kidney disease, unspecified (10) Dilated cardiomyopathy Status: Chronic Assessment & Plan: 05/04 -resume home medications (11) Hyperlipidemia Status: Chronic Assessment & Plan: 05/04 -resume home medications Qualifiers: Qualified Codes: E78.2 - Mixed hyperlipidemia (12) Hypothyroidism (acquired) Status: Chronic Assessment & Plan: 05/04 -resume home medications (13) GERD (gastroesophageal reflux disease) Status: Chronic Assessment & Plan: 05/04 -resume home medications Qualifiers: Qualified Codes: K21.9 - Gastro-esophageal reflux disease without esophagitis (14) Urge incontinence Status: Chronic Assessment & Plan: 05/04 -resume home medications (15) Mood disorder Status: Chronic Assessment & Plan: 05/04 -resume home medications (16) Anxiety Status: Chronic Assessment & Plan: 05/04 -resume home medications (17) Restless leg syndrome Status: Chronic Assessment & Plan: 05/04 -resume home medications Clinical Quality Measures DVT/VTE Risk/Contraindication: Risk Factor Score Per Nursin RFS Level Per Nursing on Admit: 4+=Very High Copy Copies To 1: [facility]/IVONNE JOHNSON DO May 04, 2018 06:44
[2018-05-04 06:53] VITALS: BP 150/90
[2018-05-04 06:58] LABS: ALANINE AMINOTRANSFERASE 10 U/L (0-55); ALBUMIN 3.8 GM/DL (3.2-4.5); ALKALINE PHOSPHATASE 83 U/L (40-136); BILIRUBIN,TOTAL 0.8 MG/DL (0.1-1.0); BUN/CREATININE RATIO 12; CALCIUM 9.4 MG/DL (8.5-10.1); CARBON DIOXIDE 25 MMOL/L (21-32); CHLORIDE 100 MMOL/L (98-107); CHOLESTEROL 175 MG/DL (< 200); CREATININE SERUM 1.46 MG/DL (0.60-1.30); GFR ESTIMATED 39; GLUCOSE 104 MG/DL (70-105); HDL CHOLESTEROL 43 MG/DL (40-60); POTASSIUM 3.8 MMOL/L (3.6-5.0); SODIUM 137 MMOL/L (135-145); TOTAL PROTEIN 7.9 GM/DL (6.4-8.2); TRIGLYCERIDES 113 MG/DL (<150); VLDL CHOLESTEROL 23 MG/DL (5-40)
--- NOTE | 2018-05-04 08:13 | Diagnostic Imaging Report ---
INDICATION: Congestive heart failure. Comparison made with prior examination 05/03/2018. FINDINGS: There is cardiomegaly. There is some mild venous congestion. There is no pleural effusion or pneumothorax. Mediastinum is unremarkable. IMPRESSION: Cardiomegaly and mild central pulmonary venous congestion. Dictated by: Dictated on workstation # [id number]
[2018-05-04 08:48] VITALS: BP 151/76
--- NOTE | 2018-05-04 08:55 | Cardiology Progress Note ---
Subjective Date Seen by Provider: May 04, 2018 Time Seen by Provider: 08:54 Subjective/Events-last exam Patient is laying down in bed, feeling better, breathing better, denied any chest pain, chronic enzymes were negative. Review of Systems General: No Chills, No Night Sweats, No Fatigue, No Malaise, No Appetite, No Other HEENT: No Head Aches, No Visual Changes, No Eye Pain, No Ear Pain, No Dysphasia , No Sinus Congestion, No Post Nasal Drip, No Sore Throat, No Other Pulmonary: Dyspnea; No Cough, No Pleuritic Chest Pain, No Other Cardiovascular: Edema; No: Chest Pain, Palpitations, Orthopnea, Paroxysmal Noc. Dyspnea, Lt Headedness, Other Objective-Cardiology Exam Last Set of Vital Signs Vital Signs 05/04/18 08:48 Temp 98.3 Pulse 81 Resp 20 B/P (MAP) 151/76 (101) Pulse Ox 98 O2 Delivery Room Air Capillary Refill : Less Than 3 Seconds I&O Intake and Output 05/04/18 00:00 Intake Total 940 ml Output Total 4800 ml Balance -3860 ml Intake Oral 940 ml Output Urine Total 4800 ml # Voids 1 # Bowel Movements 2 Daily Weight Change No General: Alert, Oriented X3, Cooperative HEENT: Atraumatic, PERRLA Neck: Supple, No JVD, No Thyromegaly Lungs: Clear to Auscultation, Normal Air Movement Heart: Regular Rate, Normal S1, Normal S2, No Murmurs Abdomen: Normal Bowel Sounds, Soft, No Tenderness, No Hepatosplenomegaly, No Masses Extremities: No Clubbing, No Cyanosis, Normal Pulses, No Tenderness/Swelling, Other (peripheral edema) Skin: No Rashes, No Breakdown, No Significant Lesion Neuro: Normal Gait, Normal Speech, Strength at 5/5 X4 Ext, Normal Tone, Sensation Intact Psych/Mental Status: Mental Status NL, Mood NL Results Lab Laboratory Tests 05/03/18 14:00 05/04/18 06:17 A/P-Cardiology Admission Diagnosis Chest pain nonspecific etiology Labile hypertension Coronary artery disease Hyperlipidemia Assessment/Plan Chest pain nonspecific etiology, reporting improvement, cardiac enzymes and EKG did not show any acute changes. Baseline left bundle branch block which has been persistent. Labile hypertension, better control at this time. Continue to monitor blood pressure as an outpatient Lymphedema, bilateral edema with ulcer on the right leg, has been seen by Dr. Trejo and referred for lymphedema clinic in [place], scheduled to go to the clinic this afternoon. Coronary artery disease. History of cardiac catheterization in July 2016 showing severe disease at the LAD and right coronary artery had a stent placed to the right coronary artery using Promus Premier 3 x18 mm and a stent to the LAD using 2.7516 mm Promus Premier with excellent results, done by Dr. Adkins, repeat cardiac catheterization showed patent stents with small vessel disease nonobstructive disease. Dilated cardiomyopathy with global hypokinesis and left ventricular ejection fraction 25 to 30%. Per cardiac cath of 08-16-16, during cardiac catheterization and her ejection fraction was 20-25 percent, echocardiogram showed ejection fraction 50 percent done in 2012, echo is pending Hypothyroidism, being treated with thyroid replacement and managed by her PCP Morbid obesity with a BMI of 81 H/O nocturnal hypoxemia for which she is on nocturnal home oxygen Suspected NAVA, COPD. Hyperlipidemia, monitor lipids Okay for discharge from cardiology standpoint and follow-up as an outpatient with Dr. Adkins Clinical Quality Measures DVT/VTE Risk/Contraindication: Risk Factor Score Per Nursin RFS Level Per Nursing on Admit: 4+=Very High JANNY TROY MD May 04, 2018 08:55
[2018-05-04] MEDS ORDERED: ASPIRIN E.C. 81 MG (ECOTRIN) TAB PO SCH (09:00)
[2018-05-04] MEDS: meTOprolol TARTRATE 50 MG (LOPRESSOR) TAB PO SCH (09:19)
[2018-05-04] MEDS: SACUBITRIL/VALSARTAN 24/26 MG (ENTRESTO) TABLET PO SCH (09:19)
--- NOTE | 2018-05-04 09:54 | Discharge Summary ---
Diagnosis/Chief Complaint Date of Admission May 03, 2018 at 15:05 Date of Discharge 05/04/18 Admission Diagnosis Admission Diagnosis Chest Pain Edema Dyspnea Exacerbation of Chronic Systolic Heart Failure Super Morbid Obesity, BMI 84.7 CAD of [place] Vessel Hyperlipidemia Hypothyroidism Chronic Pain HTN Discharge Diagnosis (1) Edema Status: Chronic Assessment & Plan: 05/04 -chronic issue for patient -due to body habitus, difficult to discern new edema -BNP not significantly elevated on admission -pt has appt with lymphedema clinic in [place] today and is requesting early discharge so she can make it to appt -cleared by cardiology, no med changes, will discharge this AM so patient can keep appt with Lymphedema Clinic Qualifiers: Qualified Codes: R60.9 - Edema, unspecified (2) Chronic pain Status: Chronic Assessment & Plan: 05/04 -will resume home medications for pain control if needed -no complaints of pain -discharge this morning, no medication changes Qualifiers: Qualified Codes: G89.29 - Other chronic pain (3) Morbid obesity with BMI of 70 and over, adult Status: Chronic (4) Dependence on supplemental oxygen Status: Chronic Assessment & Plan: 05/04 -uses at night; has sleep apnea but will not wear CPAP (5) Chest pain Status: Resolved Assessment & Plan: 05/04 -2-3 days of retrosternal discomfort and pressure without radiation -cardiology consulted -troponins negative initially, trended and remained negative -pt reports this AM chest pain has resolved and she would like discharge -cleared by cardiology for discharge Qualifiers: Qualified Codes: R07.9 - Chest pain, unspecified (6) HTN (hypertension) Status: Chronic Assessment & Plan: 05/04 -cardiology consulted, will defer to their management -per cardiology, HTN is somewhat labile -continue medications as prior to discharge -discharge to home; no medication changes Qualifiers: Qualified Codes: I10 - Essential (primary) hypertension (7) Hx of congestive heart failure Status: Chronic Assessment & Plan: 05/04 -appears previous LVEF was ~20% per cardiology notes,with plans to repeat echo today -will monitor for results and defer management to cardiology -repeat echo done this morning, EF 40-45 %, reduced LV systolic function -no medication changes -okay to discharge, pt to follow up with cardiology on outpatient basis (8) Hx of coronary artery disease Status: Chronic Assessment & Plan: 05/04 -known LAD disease from previous cath -stenting in the past - RCA and LAD in 07/[address] Adkins -defer to cardiology management (9) Chronic kidney disease Status: Chronic Assessment & Plan: 05/04 -appears pt baseline to be ~1.29, so admission value of 1.31 is not significantly different from previous baseline -discharge to home today Qualifiers: Qualified Codes: N18.9 - Chronic kidney disease, unspecified (10) Dilated cardiomyopathy Status: Chronic Assessment & Plan: 05/04 -resume home medications (11) Hyperlipidemia Status: Chronic Assessment & Plan: 05/04 -resume home medications Qualifiers: Qualified Codes: E78.2 - Mixed hyperlipidemia (12) Hypothyroidism (acquired) Status: Chronic Assessment & Plan: 05/04 -resume home medications (13) GERD (gastroesophageal reflux disease) Status: Chronic Assessment & Plan: 05/04 -resume home medications Qualifiers: Qualified Codes: K21.9 - Gastro-esophageal reflux disease without esophagitis (14) Urge incontinence Status: Chronic Assessment & Plan: 05/04 -resume home medications (15) Mood disorder Status: Chronic Assessment & Plan: 05/04 -resume home medications (16) Anxiety Status: Chronic Assessment & Plan: 05/04 -resume home medications (17) Restless leg syndrome Status: Chronic Assessment & Plan: 05/04 -resume home medications Chief Complaint/HPI Chief Complaint/HPI Super morbidly obese female with known CAD presented to ED yesterday with report of chest pain - aching in upper retrosternal area, no radiation; shortness of breath. Feels her edema in her right leg is worse than before. Denies palpitations or syncope. Placed in observation for trending troponins and consult to cardiology, with whom she follows due to her known history of CAD , HTN, Hyperlipidemia, and Coronary Stenting in the past, as well as previously low EF. Discharge Summary-Simple/Stand Procedures Echo per cardiology Consultations Cardiology Discharge Physical Examination Allergies: Coded Allergies: sulfamethoxazole (Unverified Allergy, Unknown, 11/14/17) trimethoprim (Unverified Allergy, Unknown, 04/23/06) Vitals & I&Os Vital Sign - Last 12Hours Date Time Temp Pulse Resp B/P (MAP) Pulse Ox O2 Delivery O2 Flow Rate FiO2 05/04/18 08:48 98.3 81 20 151/76 (101) 98 Room Air Intake and Output 05/04/18 00:00 Intake Total 940 ml Output Total 4800 ml Balance -3860 ml General Appearance: Alert, Oriented X3, Cooperative, No Acute Distress HEENT: Atraumatic, EOMI, Mucous Memb Moist/[place] Respiratory: Clear to Auscultation, Normal Air Movement Cardiovascular: Regular Rate, Normal S1, Normal S2 Abdominal: Normal Bowel Sounds, Soft, No Tenderness, No Hepatosplenomegaly Extremities: No Clubbing, Other (significant bilateral lower extremety lymphedema, right leg ulceration) Skin: No Rashes, Other (right leg ulceration - follows with wound care; chronic venous stasis changes bilaterally) Neuro: Normal Speech, Normal Tone, Cranial Nerves 3-12 NL Psych/Mental Status: Mental Status NL, Mood NL Hospital Course See final discharge diagnosis. Labs Laboratory Tests Test 05/03/18 14:00 05/03/18 18:50 05/03/18 21:20 05/03/18 22:00 Range/Units White Blood Count 8.9 4.3-11.0 10^3/uL Red Blood Count 4.37 4.35-5.85 10^6/uL Hemoglobin 13.3 11.5-16.0 G/DL Hematocrit 41 35-52 % Mean Corpuscular Volume 95 80-99 FL Mean Corpuscular Hemoglobin 30 25-34 PG Mean Corpuscular Hemoglobin Concent 32 32-36 G/DL Red Cell Distribution Width 14.0 10.0-14.5 % Platelet Count 218 130-400 10^3/uL Mean Platelet Volume 9.5 7.4-10.4 FL Neutrophils (%) (Auto) 79 H 42-75 % Lymphocytes (%) (Auto) 13 12-44 % Monocytes (%) (Auto) 5 0-12 % Eosinophils (%) (Auto) 3 0-10 % Basophils (%) (Auto) 0 0-10 % Neutrophils # (Auto) 7.0 1.8-7.8 X 10^3 Lymphocytes # (Auto) 1.2 1.0-4.0 X 10^3 Monocytes # (Auto) 0.4 0.0-1.0 X 10^3 Eosinophils # (Auto) 0.2 0.0-0.3 10^3/uL Basophils # (Auto) 0.0 0.0-0.1 10^3/uL Prothrombin Time 13.5 14.3 12.2-14.7 SEC INR Comment 1.0 1.1 0.8-1.4 Activated Partial Thromboplast Time 28 27 24-35 SEC Sodium Level 138 135-145 MMOL/L Potassium Level 4.4 3.6-5.0 MMOL/L Chloride Level 106 98-107 MMOL/L Carbon Dioxide Level 22 21-32 MMOL/L Anion Gap 10 5-14 MMOL/L Blood Urea Nitrogen 16 7-18 MG/DL Creatinine 1.31 H 0.60-1.30 MG/DL Estimat Glomerular Filtration Rate 45 BUN/Creatinine Ratio 12 Glucose Level 112 H 70-105 MG/DL Calcium Level 9.4 8.5-10.1 MG/DL Magnesium Level 2.0 1.8-2.4 MG/DL Total Bilirubin 0.6 0.1-1.0 MG/DL Aspartate Amino Transf (AST/SGOT) 13 5-34 U/L Alanine Aminotransferase (ALT/SGPT) 10 0-55 U/L Alkaline Phosphatase 87 40-136 U/L Total Creatine Kinase 23 L 21 L 29-168 U/L Creatine Kinase MB 1.5 <6.6 NG/ML Troponin I < 0.30 < 0.30 <0.30 NG/ML B-Type Natriuretic Peptide 92.6 <100.0 PG/ML Total Protein 8.3 H 6.4-8.2 GM/DL Albumin 3.8 3.2-4.5 GM/DL Amylase Level 42 25-125 U/L Lipase 30 8-78 U/L Serum Test, Qualitative NEGATIVE NEGATIVE Urine Color YELLOW Urine Clarity VERY CLOUDY H Urine pH 6 5-9 Urine Specific [place] 1.005 L 1.016-1.022 Urine Protein NEGATIVE NEGATIVE Urine Glucose (UA) NEGATIVE NEGATIVE Urine Ketones NEGATIVE NEGATIVE Urine Nitrite NEGATIVE NEGATIVE Urine Bilirubin NEGATIVE NEGATIVE Urine Urobilinogen NORMAL NORMAL MG/DL Urine Leukocyte Esterase 2+ H NEGATIVE Urine RBC (Auto) 2+ H NEGATIVE Urine RBC 10-25 H /HPF Urine WBC 2-5 /HPF Urine Squamous Epithelial Cells >50 H /HPF Urine Crystals NONE /LPF Urine Bacteria LARGE H /HPF Urine Casts NONE /LPF Urine Mucus NEGATIVE /LPF Urine Culture Indicated NO Myoglobin 51.7 10.0-92.0 NG/ML Glucometer 120 H 70-110 MG/DL Test 6/15/18 05:38 05/04/18 06:17 Range/Units Glucometer 102 70-110 MG/DL White Blood Count 9.1 4.3-11.0 10^3/uL Red Blood Count 4.43 4.35-5.85 10^6/uL Hemoglobin 13.3 11.5-16.0 G/DL Hematocrit 42 35-52 % Mean Corpuscular Volume 94 80-99 FL Mean Corpuscular Hemoglobin 30 25-34 PG Mean Corpuscular Hemoglobin Concent 32 32-36 G/DL Red Cell Distribution Width 14.1 10.0-14.5 % Platelet Count 233 130-400 10^3/uL Mean Platelet Volume 9.3 7.4-10.4 FL Neutrophils (%) (Auto) 78 H 42-75 % Lymphocytes (%) (Auto) 14 12-44 % Monocytes (%) (Auto) 6 0-12 % Eosinophils (%) (Auto) 2 0-10 % Basophils (%) (Auto) 0 0-10 % Neutrophils # (Auto) 7.1 1.8-7.8 X 10^3 Lymphocytes # (Auto) 1.3 1.0-4.0 X 10^3 Monocytes # (Auto) 0.5 0.0-1.0 X 10^3 Eosinophils # (Auto) 0.2 0.0-0.3 10^3/uL Basophils # (Auto) 0.0 0.0-0.1 10^3/uL Sodium Level 137 135-145 MMOL/L Potassium Level 3.8 3.6-5.0 MMOL/L Chloride Level 100 98-107 MMOL/L Carbon Dioxide Level 25 21-32 MMOL/L Anion Gap 12 5-14 MMOL/L Blood Urea Nitrogen 18 7-18 MG/DL Creatinine 1.46 H 0.60-1.30 MG/DL Estimat Glomerular Filtration Rate 39 BUN/Creatinine Ratio 12 Glucose Level 104 70-105 MG/DL Calcium Level 9.4 8.5-10.1 MG/DL Total Bilirubin 0.8 0.1-1.0 MG/DL Aspartate Amino Transf (AST/SGOT) 11 5-34 U/L Alanine Aminotransferase (ALT/SGPT) 10 0-55 U/L Alkaline Phosphatase 83 40-136 U/L Troponin I < 0.30 <0.30 NG/ML B-Type Natriuretic Peptide 114.1 H <100.0 PG/ML Total Protein 7.9 6.4-8.2 GM/DL Albumin 3.8 3.2-4.5 GM/DL Triglycerides Level 113 <150 MG/DL Cholesterol Level 175 < 200 MG/DL LDL Cholesterol Direct 120 1-129 MG/DL VLDL Cholesterol 23 5-40 MG/DL HDL Cholesterol 43 40-60 MG/DL Thyroid Stimulating Hormone (TSH) 4.71 0.35-4.94 UIU/ML Radiology Reviewed Date of Exam: 05/03/18 CHEST 1 VIEW, AP/PA ONLY Indication: Chest pain. Time of exam: 2:29 PM Correlation is made with prior study from 07/25/2017. The study is somewhat compromised due to portable technique and patient body habitus. There appears to be some central congestion. No overt failure is seen. No infiltrate or effusion is detected. There is no pneumothorax. Impression: Central congestion. Discharge Condition at discharge stable Instructions to patient/family Please see electronic discharge instructions given to patient. Discharge Medications Reviewed and agree with Discharge Medication list on patient's Discharge Instruction sheet Clinical Quality Measures DVT/VTE Risk/Contraindication: Risk Factor Score Per Nursin RFS Level Per Nursing on Admit: 4+=Very High Copy Copies To 1: [facility]/ADI JOHNSON DO May 04, 2018 09:54
--- NOTE | 2018-05-04 10:01 | Discharge Instructions ---
Discharge [facility] Discharge Medications New, Converted or Re-Newed RX: Other (no change in rx) Continued Medications: Albuterol Sulfate (Proventil Hfa) 6.7 Gm Hfa.aer.ad 2 PUFF IH EVERY 4-6 HOURS PRN for SHORTNESS OF BREATH, GM Aspirin (Aspir 81) 81 Mg Tablet.dr 81 MG PO DAILY, TAB Cephalexin (Cephalexin) 500 Mg Tablet 500 MG PO TID, #30 TAB 0 Refills Cephalexin (Keflex) 500 Mg Capsule 500 MG PO QIDPCHS for 10 Days, #40 CAP 0 Refills Clopidogrel Bisulfate (Clopidogrel) 75 Mg Tablet 75 MG PO DAILY, TAB Cyclobenzaprine HCl (Cyclobenzaprine HCl) 10 Mg Tablet 10 MG PO HS, TAB Duloxetine HCl (Duloxetine HCl) 60 Mg Capsule.dr 60 MG PO DAILY, CAP Gabapentin (Gabapentin) 300 Mg Capsule 300 MG PO HS, CAP Levothyroxine Sodium (Levothyroxine Sodium) 75 Mcg Tablet 75 MCG PO DAILY, TAB Metolazone (Metolazone) 2.5 Mg Tablet 2.5 MG PO DAILY, TAB Metoprolol Tartrate (Metoprolol Tartrate) 50 Mg Tablet 50 MG PO BID, TAB Mupirocin (Mupirocin) 22 Gm Oint...g. 22 GM TP UD, TUBE APPLY TO AFFECTED AREAS EVERY OTHER DAY Omeprazole (Omeprazole) 20 Mg Capsule.dr 20 MG PO DAILY, CAP Potassium Chloride (K-Tab ER) 20 Meq Tablet.er 20 MEQ PO DAILY, TAB Ropinirole HCl (Ropinirole HCl) 4 Mg Tablet 4 MG PO DAILY@1900, TAB TAKES 1-3 HOURS PRIOR TO BEDTIME Sacubitril/Valsartan (Entresto 24 mg-26 mg Tablet) 1 Each Tablet 1 EACH PO BID, TAB Simvastatin (Simvastatin) 20 Mg Tablet 20 MG PO HS, TAB Patient Instructions Patient Instructions -take medications as directed -keep follow up appts Goal/Follow Up Appt: Taylor Emanuel, 05/08 at 11:20 Return to The Hospital For: chest pain or pressure, shortness of breath that is out of normal and not relieved by rest and normal medications, nausea or vomiting that makes you unable to keep down medications or clear liquids for more than 12 hours, temp >101 that is not relieved by tylenol, severe pain not relieved by normal measures, if directed by coagulation operator provider or any other emergent complaints or concerns. Activity & Diet Discharge Diet: Cardiac Diet Activity as Tolerated: Yes Orders-Post D/C & Referrals Pneu Vac Indicated: Yes Copy Copies To 1: [facility]/ADI JOHNSON DO May 04, 2018 10:01
[2018-05-04] MEDS ORDERED: METOLAZONE 2.5 MG (ZAROXOLYN) TAB PO SCH (10:15)
[2018-05-04] MEDS ORDERED: MUPIROCIN 2% OINT 22 GM (BACTROBAN) TUBE TOP SCH (10:15)
[2018-05-04] MEDS ORDERED: DULoxetine 30 MG (CYMBALTA) CAP PO SCH (10:15)
[2018-05-04] MEDS ORDERED: CEPHALEXIN 250 MG (KEFLEX) CAP PO SCH ×2 (13:00)
[2018-05-04] MEDS ORDERED: rOPINIRole 1 MG (REQUIP) TABLET PO SCH (19:00)
[2018-05-04] MEDS ORDERED: GABAPENTIN 300 MG (NEURONTIN) CAP PO SCH (21:00)
[2018-05-04] MEDS ORDERED: SIMvastatin 20 MG (ZOCOR) TAB PO SCH (21:00)
[2018-05-04] MEDS ORDERED: meTOprolol TARTRATE 50 MG (LOPRESSOR) TAB PO SCH (21:00)
[2018-05-04] MEDS ORDERED: CYCLOBENZAPRINE 10 MG (FLEXERIL) TAB PO SCH (21:00)
[2018-05-05] MEDS ORDERED: PANTOPRAZOLE 20 MG TABLET (PROTONIX) PO SCH (07:00)
[2018-05-05] MEDS ORDERED: KCL 20 MEQ TAB (K-DUR) PO SCH (07:00)
[2018-05-05] MEDS ORDERED: LEVOTHYROXINE 75 MCG (LEVOTHROID) TABLET PO SCH (09:00)
[2018-05-05] MEDS ORDERED: CLOPIDOGREL 75 MG (PLAVIX) TABLET PO SCH (09:00)
[2018-05-05] MEDS ORDERED: NON-FORMULARY MEDICATION 1 EA EA (Aspirin (Aspir 81) 81 MG) PO SCH (09:00)
== END 2018-05-04 09:58 | disposition home or self-care (01) ==
LOC: EDUNIT# 13:53 → ER 13:55 → 4TH 15:05 → UNDOADMOB 15:05 → 4TH 18:00 → UNDODISOB 05-04 10:35
PROVIDERS: ADMIT Family Medicine; ATTEND Family Medicine
DX: R07.9 Chest pain, unspecified (principal); I89.0 Lymphedema, not elsewhere classified; I42.0 Dilated cardiomyopathy; I13.0 Hypertensive heart and chronic kidney disease with heart failure and stage 1 through stage 4 chronic kidney disease, or unspecified chronic kidney disease; I50.9 Heart failure, unspecified; N18.9 Chronic kidney disease, unspecified; I25.10 Atherosclerotic heart disease of native coronary artery without angina pectoris; E78.5 Hyperlipidemia, unspecified; Z79.899 Other long term (current) drug therapy; I44.7 Left bundle-branch block, unspecified; K21.9 Gastro-esophageal reflux disease without esophagitis; E03.9 Hypothyroidism, unspecified; J45.909 Unspecified asthma, uncomplicated; F41.9 Anxiety disorder, unspecified; G25.81 Restless legs syndrome; J44.9 Chronic obstructive pulmonary disease, unspecified; G47.33 Obstructive sleep apnea (adult) (pediatric); I83.219 Varicose veins of right lower extremity with both ulcer of unspecified site and inflammation; L97.919 Non-pressure chronic ulcer of unspecified part of right lower leg with unspecified severity; N39.41 Urge incontinence; F39 Unspecified mood [affective] disorder; G89.29 Other chronic pain; E66.01 Morbid (severe) obesity due to excess calories; Z68.45 Body mass index [BMI] 70 or greater, adult; Z79.82 Long term (current) use of aspirin; Z95.5 Presence of coronary angioplasty implant and graft
CPT/HCPCS: 36415; 71045; 80053; 80061; 81000; 82150; 82550; 82553; 82962; 83690; 83735; 83874; 83880; 84443; 84484; 84703; 85025; 85027; 85610; 85730; 93005; 93041; 93306; 96374; G0378

== ENCOUNTER → 2018-09-08 | Emergency (ER) | payer MEDICAID, OTHER ==
[~2018-09-08] VITALS: Ht 157.5 cm; Wt 211.8 kg
[~2018-09-08] MED LIST changes: +ACHD5005 PO; +ASPIRIN 81 MG CHEW (CHILDREN'S ASA) PO ONE; +HYDR-4226 PO; -HYDR-757 PO; +HYDROcodone/APAP 5 MG/325 MG (LORTAB) TAB PO ONE; +ROPI4TAB5 PO
--- OUTSIDE RECORDS SUMMARY | 2018-09-08 15:03 | XMS REPORT ---
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 Active 35201743 Problem Urge incontinence of urine N39.41 Active 73355328 Problem Dependence on supplemental oxygen Z99.81 Active 960600383148 Problem Other chronic pain G89.29 Active 72161385 Problem Restless legs syndrome G25.81 Active 740734943 Problem Chronic systolic heart failure I50.22 Active 451763476 Problem Chronic pain syndrome G89.4 Active 920150580 Problem Gastroesophageal reflux disease without esophagitis K21.9 Active 508666705 Problem Morbid obesity E66.01 Active 072590502 Problem Morbid (severe) obesity due to excess calories E66.01 Active 569581431 Problem Lumbar pain M54.5 Active 731923174 Problem Chronic stasis dermatitis I83.10 Active 80645949 Problem Essential hypertension I10 Active 40271668 Problem Acquired hypothyroidism E03.9 Active 536090685 Problem Nocturnal hypoxia G47.34 Active 287399925 Problem Mixed hyperlipidemia E78.2 Active 547498476 Problem Renal insufficiency N28.9 Active 575045634 Problem Edema of both legs R60.0 Active 372600241 Problem Lymphedema I89.0 Active 878548626 Problem Stasis dermatitis without varicosities I87.2 Active 33718419 ALLERGIES Substance Reaction Event Type Date Status Bactrim DS hives Drug Allergy Jun, Active nitrate tape hives Non Drug Allergy Jun, Active ENCOUNTERS Encounter Location Date Diagnosis [facility] [address] [facility] [id number] [place] [address] Jun, Cellulitis of right lower leg L03.115 [facility] [address], [place] [address] Jun, [facility] [id number] [place] [address] 10203- 9148 May, [facility] [id number] [place] [address] 33376- 4767 May, [facility] [id number] [place] [address] 17383- 0229 Apr, Essential hypertension I10 ; Chronic systolic heart failure I50.22 ; Pain in right knee M25.561 ; Pain in left knee M25.562 ; Other chronic pain G89.29 ; Mixed hyperlipidemia E78.2 ; Morbid obesity E66.01 and Body mass index (BMI) 70 or greater, adult Z68.45 [facility] [id number] [place] [address] 14757- 7673 Apr, [facility] [id number] [place] [address] 97354- 8057 Apr, Acquired hypothyroidism E03.9 [facility] [id number] [place] [address] 26510- 5298 Apr, Acquired hypothyroidism E03.9 [facility] [id number] [place] [address] 92279- 6221 Apr, [facility] [id number] [place] [address] 13375- 6022 Apr, [facility] [id number] [place] [address] 30869- 2038 Apr, Acquired hypothyroidism E03.9 ; Morbid (severe) obesity due to excess calories E66.01 ; Body mass index (BMI) 70 or greater, adult Z68.45 ; Restless legs syndrome G25.81 ; Essential hypertension I10 and Lymphedema I89.0 [facility] [id number] [place] [address] 64392- 4725 16 Feb, 2018 [facility] [id number] [place] [address] 12150- 6497 Jan, [facility] [id number] [place] [address] 81516- 8932 Jan, [facility] [id number] [place] [address] 97207- 5982 Jan, Acquired hypothyroidism E03.9 ; Morbid (severe) obesity due to excess calories E66.01 ; Body mass index (BMI) 70 or greater, adult Z68.45 ; Cellulitis of left anterior lower leg L03.116 ; Restless legs syndrome G25.81 ; Nocturnal hypoxia G47.34 and Dependence on supplemental oxygen Z99.81 [facility] [id number] [place] [address] 28636- 4998 Jan, [facility] [id number] [place] [address] 35789- 0955 Dec, [facility] [id number] [place] [address] 16875- 4010 Oct, [facility] [id number] [place] [address] 12429- 5642 07 Oct, 2017 [facility] [id number] [place] [address] 59631- 9359 Sep, [facility] [id number] [place] [address] 15131- 3551 16 Sep, 2017 [facility] [id number] [place] [address] 11550- 4023 16 Sep, 2017 Dental examination Z01.20 [facility] [address] [place] [address] 61477- 9984 Sep, Morbid obesity due to excess calories E66.01 ; Body mass index (BMI) of 70 or greater in adult Z68.45 ; Stasis dermatitis without varicosities I87.2 ; Lymphedema I89.0 ; Renal insufficiency N28.9 ; Acquired hypothyroidism E03.9 ; Cellulitis L03.90 ; Bronchitis J40 and BMI 40.0-44.9, adult Z68.41 [facility] [id number], [place] [address] Aug, [facility] [address] [id number] Aug, Dental examination Z01.20 [facility] [address] [place] [address] 81868- 4442 Aug, [facility] [id number] [place] [address] 38812- 6804 Jul, [facility] [id number] [place] [address] 34027- 7464 Jul, [facility] [id number] [place] [address] 77930- 0153 18 Jul, 2017 [facility] [id number] [place] [address] 69925- 4090 Jul, [facility] [id number] [place] [address] 89153- 9440 Jul, [facility] [id number] [place] [address] 31744- 5408 Jun, [facility] [id number] [place] [address] 31516- 2984 Jun, Dependence on nocturnal oxygen therapy Z99.81 ; Morbid obesity due to excess calories E66.01 and Bronchitis J40 [facility] [address] [place] [address] 89552- 5264 Jun, Restless legs syndrome G25.81 [facility] [address], [place] [address] 1620 Jun, [facility] [id number] [place] [address] 74604- 9921 May, [facility] [id number] [place] [address] [id number] Apr, [facility] [id number] [place] [address] 96124- 5501 Apr, [facility] [address], [place] [address] 6749 Apr, Essential hypertension I10 [facility] [id number] [place] [address] 47032- 8568 Apr, [facility] [id number] [place] [address] 06742- 3036 Apr, Chronic pain syndrome G89.4 and Urge incontinence of urine N39.41 [facility] [id number] [place] [address] 08978- 8442 March, Acquired hypothyroidism E03.9 [facility] [id number] [place] [address] 14187- 2344 March, [facility] [id number] [place] [address] 08980- 3363 March, [facility] [id number] [place] [address] 12485- 4424 March, Chronic pain syndrome G89.4 ; Essential [...] extremity L03.116 and Screening breast examination Z12.39 [facility] [address], [place] [address] March, [facility] [address] [place] [address] 13538- 3398 Feb, [facility] [id number] [place] [address] 56344- 8396 Feb, [facility] [address] [address] 8218 Feb, Chronic pain syndrome G89.4 [facility] [address], [place] [address] Feb, Right foot pain M79.671 and Right foot sprain, initial encounter S93.601A [facility] [address], [place] [address] 9615 Jan, [facility] [id number] [place] [address] 13474- 4271 Jan, [facility] [id number] [place] [address] 50591- 2174 Jan, Chronic pain syndrome G89.4 [facility] [id number] [place] [address] 68965- 8584 Jan, [facility] [id number] [place] [address] 45190- 7410 Dec, [facility] [id number] [place] [address] 38600- 7399 Dec, [facility] [id number] [place] [address] 66464- 7661 Dec, Pain in right knee M25.561 ; Pain in left knee M25.562 ; Essential hypertension I10 ; Chronic stasis dermatitis I83.10 ; Restless legs syndrome G25.81 ; Acquired hypothyroidism E03.9 ; Dependence on nocturnal oxygen therapy Z99.81 ; Mixed hyperlipidemia E78.2 ; Lymphedema I89.0 ; Chronic pain syndrome G89.4 ; Gastroesophageal reflux disease without esophagitis K21.9 and Urge incontinence of urine N39.41 [facility] [address], [place] [address] 8122 Nov, Mixed hyperlipidemia E78.2 [facility] [id number] [place] [address] 42294- 7559 Nov, [facility] [address] [address] 7769 Nov, [facility] [address] [place] [address] 6722 Nov, [facility] [address], [place] [address] Nov, Stasis ulcer, left I83.029 [facility] [address] [place] [address]- 9029 Nov, [facility] [address], [place] [address]- 0547 Oct, [facility] [address] [place] [address]- 3155 Oct, [facility] [address] [place] [address]- 2332 Oct, [facility] [address] [place] [address]- 1626 Sep, [facility] [address], [place] [address]- 5161 Sep, [address] [id number] Sep, [facility] [address], [place] [address]- 0915 Aug, [facility] [id number], [place] [address]- 9602 Jul, [facility] [address], [place] [address]- 4236 Jul, [facility] [id number], [place] [address]- 4501 Jul, [facility] [address], [place] [address]- 2968 Jul, [facility] [id number] [address]- 0994 14 Jul, 2016 Chest pain, unspecified type R07.9 ; Dyspnea on exertion R06.09 ; Essential hypertension I10 ; Hyperlipidemia, unspecified hyperlipidemia type E78.5 ; Left bundle branch block I44.7 and Hypothyroidism, unspecified type E03.9 [facility] [address] [address] Jun, Fever, unspecified fever cause R50.9 ; Headache, unspecified headache type R51 ; SOB (shortness of breath) R06.02 and Strep pharyngitis J02.0 [facility] [address] 20046- 4209 Jun, [facility] [address] [address] Jun, [facility] [address] 39473- 2388 Jun, Essential hypertension I10 ; Mixed hyperlipidemia E78.2 and Acquired hypothyroidism E03.9 [facility] [address] 70038- 7871 Jun, Edema of both legs R60.0 ; Hypoxia R09.02 and Essential hypertension I10 [facility] [address] 16729- 0999 Jun, [facility] [address] 06442- 8173 Jun, Edema of both legs R60.0 ; Hypoxia R09.02 and Essential hypertension I10 [facility] [id number] [place] [address] 29961- 8024 Jun, Essential hypertension I10 ; Dependence on supplemental oxygen Z99.81 and Edema of both legs R60.0 [facility] [facility] [address] 87371- 4807 May, Lumbar pain M54.5 ; Essential hypertension I10 ; Edema of both legs R60.0 ; Stasis dermatitis without varicosities I87.2 and Left knee pain M25.562 [facility] [address] 87696- 8471 May, [facility] [address], [place] [address]- 4041 May, [facility] [address], [place] [address]- 4757 May, [facility] [address] [place] [address] 92113- 8610 Apr, [facility] [id number] [place] [address] 80895- 6310 Apr, [facility] [address] [place] [address] 45740- 7091 March, [facility] [id number] [place] [address] 76806- 6743 March, Lymphedema I89.0 ; Morbid obesity due to excess calories E66.01 ; Alteration in mobility due to weakness R53.1 and Hypoxia R09.02 [facility] [address], [place] [address]- 1004 March, Abdominal wall mass R19.00 [facility] [id number] [place] [address] 87864- 5588 March, [facility] [address], [place] [address] 1992 March, Abdominal wall mass R19.00 ; Lower abdominal pain R10.30 ; Alteration in mobility due to weakness R53.1 ; Hypoxia R09.02 and Lymphedema I89.0 [facility] [address], [place] [address]- 8440 Feb, [facility] [address] [place] [address] 16607- 3145 Feb, Acquired hypothyroidism E03.9 ; Dependence on machine for supplemental oxygen V46.2 ; Restless legs syndrome G25.81 ; Essential hypertension I10 ; Renal insufficiency N28.9 ; Chronic stasis dermatitis I83.10 ; Mixed hyperlipidemia E78.2 ; Other chronic pain 338.29 and Cellulitis of left lower extremity L03.116 [facility] [id number] [place] [address] 41199- 0803 Feb, [facility] [id number] [place] [address] 97021- 5840 Feb, [facility] [id number] [place] [address] 81712 -9095 Feb, Shortness of breath R06.02 and Bronchitis J40 [facility] [id number] [place] [address] 20147- 8065 Jan, Dependence on supplemental oxygen Z99.81 [facility] [facility] [address] 51196- 7790 Jan, [facility] [facility] [address] 93100- 4461 Dec, [facility] [facility] [address] 59201- 0049 Dec, [facility] [facility] [id number] [place] [address] 78103- 6647 Nov, Osteoarthritis of knees, bilateral M17.0 [facility] [id number] [place] [address] 67584- 6858 Nov, Dependence on machine for supplemental oxygen V46.2 ; Nocturnal hypoxia G47.34 and Urgency of urination R39.15 [place] [facility] [id number] [place] [address] 82828- 3130 Nov, [facility] [facility] [id number] [place] [address] 90460- 4867 Oct, Pain in right knee M25.561 and Pain in left knee M25.562 [facility] [id number] [place] [address] 67979- 1236 Oct, Acquired hypothyroidism E03.9 ; Renal insufficiency N28.9 and Chronic stasis dermatitis I83.10 [place] [facility] [address] 39520- 8181 Oct, [place] [facility] [address] 75308- 7639 Sep, Cellulitis L03.90 ; Left knee pain M25.562 ; Essential hypertension I10 ; Lymphedema I89.0 ; Lumbar pain M54.5 ; Morbid obesity due to excess calories E66.01 and Renal insufficiency N28.9 [place] [facility] [address] 41312- 3060 Sep, Cellulitis L03.90 and Lymphedema I89.0 [place] [facility] [address] 28582- 0129 Sep, [place] [facility] [address] 03269- 8671 Sep, [place] [facility] [address] 76287- 2824 Sep, Left knee pain M25.562 ; Lumbar pain M54.5 ; Restless legs syndrome G25.81 ; Acquired hypothyroidism E03.9 and Essential hypertension I10 [place] [facility] [address] 07779- 2776 Jul, [facility] [facility] [id number] [place] [address] 53544- 0099 Jun, [facility] [facility] [id number] [place] [address] 62146- 6921 May, [facility] [facility] [address] 88918- 8386 May, [place] [facility] [address] 20122- 2612 May, Hypertension 997.91 ; Restless legs syndrome [RLS] 333.94 ; Unspecified venous (peripheral) insufficiency 459.81 ; Unspecified hypothyroidism 244.9 and Other chronic pain 338.29 [place] [facility] [address] [place] [address]- 3979 Apr, [facility] [address], [place] [address]- 0277 Apr, [facility] [address], [place] [address]- 0408 Apr, Restless legs syndrome [RLS] 333.94 ; Shortness of breath 786.05 ; Unspecified venous (peripheral) insufficiency 459.81 ; Unspecified hypothyroidism 244.9 ; Obesity, unspecified 278.00 ; Other chronic pain 338.29 ; Hypertension 997.91 and Hyperlipidemia 272.4 [facility] [id number] [place] [address] 74969- 3293 Feb, [facility] [id number] [place] [address] 89495- 4788 Feb, [facility] [id number] [place] [address] 76215- 4983 Jan, [facility] [address], [place] [address]- 7689 Jan, [facility] [id number] [place] [address] 80357- 5222 Jan, [facility] [address], [place] [address]- 6186 Jan, [facility] [address], [place] [address]- 7805 Jan, [facility] [address], [place] [address]- 8474 Jan, [facility] [address] 6109 Jan, [facility] [address] 0905 Jan, [facility] [address] 8750 Jan, [facility] [place] [facility] [address] [id number] [place] [address]- 3091 Jan, [facility] [place] [facility] [address] [id number] [place] [address]- 9441 Jan, [facility] [place] [facility] [address] [id number] [place] [address]- 9786 Jan, [facility] [place] [facility] [address] [id number] [place] [address]- 3736 Jan, [facility] [place] [facility] [address] [id number] [place] [address]- 6893 Jan, [facility] [place] [facility] [address] [id number] [place] [address]- 5100 Dec, [facility] [place] [facility] [address] [id number] [place] [address]- 5821 Dec, [facility] [place] [facility] [address] [id number] [place] [address]- 9911 Nov, [facility] [place] [facility] [address] [id number] [place] [address]- 8425 Nov, [facility] [place] [facility] [address] [id number] [place] [address]- 4303 Nov, [facility] [place] [facility] [address] [id number] [place] [address]- 4724 Nov, [facility] [place] [facility] [address] [id number] [place] [address]- 7633 Nov, [facility] [place] [facility] [address] [id number] [place] [address]- 6154 Nov, [facility] [place] [facility] [address] [id number] [place] [address]- 5026 Nov, [facility] [place] [facility] [address] [id number] [place] [address]- 6148 Nov, [facility] [place] [facility] [address] [id number] [address]- 8483 Nov, [facility] [place] [facility] [address] [id number] [place] [address]- 9178 Nov, [facility] [place] [facility] [address] [id number] [place] [address]- 0162 Nov, [facility] [place] [facility] [address] [id number] [place] [address]- 3066 Nov, [facility] [place] [facility] [address] [id number] [place] [address] Nov, [facility] [place] [facility] [address] [id number] [place] [address] Nov, [facility] [place] [facility] [address] [id number] [place] [address] Nov, [facility] [place] [facility] [address] [id number] [place] [address] Nov, [facility] [place] [facility] [address] [id number] [place] [address] Oct, [facility] [place] [facility] [address] [id number] [place] [address] Oct, [facility] [place] [facility] [address] [id number] [place] [address] Sep, [facility] [place] [facility] [address] [id number], [place] [address] Aug, [facility] [place] [facility] [address] [id number], [place] [address] Aug, [facility] [place] [facility] [address] [id number] [place] [address] Aug, [facility] [place] [facility] [address] [id number] [place] [address] Aug, [facility] [place] [facility] [address] [id number] [place] [address] Aug, [facility] [place] [facility] [address] [id number] [place] [address] Aug, [facility] [place] [facility] [address] [id number] [place] [address] Aug, [facility] [place] [facility] [address] [id number] [place] [address] Aug, [facility] [place] [facility] [address] [id number] [place] [address] Aug, [facility] [place] [facility] [address] [id number] [place] [address] Aug, [facility] [place] [facility] [address] [id number] [place] [address] Jun, [facility] [place] [facility] [address] [id number] [place] [address] Jun, [facility] [place] [facility] [address] [id number] [place] [address] Jun, [facility] [place] [facility] [address] [id number] [place] [address] Jun, [facility] [place] [facility] [address] [id number] [place] [address] Jun, [facility] [place] [facility] [address] [id number] [place] [address] Jun, [facility] [place] [facility] [address] [id number] [place] [address] Jun, [facility] [place] [facility] [address] [id number] [place] [address] Jun, [facility] [place] [facility] [address] [id number] [place] [address] Jun, [facility] [place] [facility] [address] [id number] [place] [address] Jun, [facility] [place] [facility] [address] [id number] [place] [address] May, [facility] [place] [facility] [address] [address] [id number] [place] [address] May, 2013 [facility] [place] [facility] [address] [id number] [place] [address] 16[address] May, [facility] [place] [facility] [address] [id number] [place] [address]- 3331 May, 2013 [facility] [place] [facility] [address] [id number] [place] [address]- 1287 May, 2013 [facility] [place] [facility] [address] [id number] [place] [address] 56[address] May, [facility] [place] [facility] [address] [id number] [place] [address] 6124 May, [facility] [place] [facility] [address] [id number] [place] [address]- 6896 May, 2013 [facility] [place] [facility] [address] [id number] [place] [address]- 1375 May, 2013 [facility] [place] [facility] [address] [id number] [place] [address]- 6670 May, 2013 [facility] [place] [facility] [address] [id number] [place] [address]- 9380 May, 2013 [facility] [place] [facility] [address] [id number] [place] [address]- 5032 May, 2013 [facility] [place] [facility] [address] [id number] [place] [address]- 6569 May, [facility] [place] [facility] [address] [id number] [place] [address]- 8237 May, [facility] [place] [facility] [address] [id number] [place] [address]- 6311 May, 2013 [facility] [place] [facility] [address] [id number] [place] [address]- 9589 May, 2013 [facility] [place] [facility] [address] [id number] [place] [address]- 9284 May, [facility] [place] [facility] [address] [id number] [place] [address]- 5197 May, [facility] [place] [facility] [address] [id number] [place] [address]- 3489 Apr, [facility] [place] [facility] [address] [id number] [place] [address]- 9264 Apr, [facility] [place] [facility] [address] [id number] [place] [address]- 5016 Apr, [facility] [place] [facility] [address] [id number] [place] [address]- 4920 Apr, [facility] [place] [facility] [address] [id number] [place] [address]- 9623 Apr, [facility] [place] [facility] [address] [id number] [place] [address]- 9511 Apr, [facility] [place] [facility] [address] [id number] [place] [address]- 3724 Apr, [facility] [place] [facility] [address] [id number] [place] [address]- 4099 Apr, [facility] [place] [facility] [address] [id number] [place] [address]- 1760 Apr, [facility] [place] [facility] [address] [id number] [place] [address]- 1447 Apr, [facility] [place] [facility] [address] [id number] [place] [address]- 6369 Apr, [facility] [place] [facility] [address] [id number] [place] [address]- 7371 Apr, [facility] [place] [facility] [address] [id number] [place] [address]- 6875 March, [facility] [place] [facility] [address] [id number] [place] [address]- 3213 March, [facility] [place] [facility] [address] [id number] [place] [address]- 6324 March, [facility] [place] [facility] [address] [id number] [place] [address]- 4300 March, [facility] [place] [facility] [address] [id number] [place] [address]- 3262 March, [facility] [place] [facility] [address] [id number] [place] [address]- 1805 March, [facility] [place] [facility] [address] [id number] [place] [address]- 5148 March, [facility] [place] [facility] [address] [id number] [place] [address]- 1691 March, [facility] [place] [facility] [address] [id number] [place] [address]- 6358 March, [facility] [place] [facility] [address] [id number] [place] [address]- 2037 March, [facility] [place] [facility] [address] [id number] [place] [address]- 8378 March, [facility] [place] [facility] [address] [id number] [place] [address]- 2272 Feb, [facility] [place] [facility] [address] [id number] [place] [address]- 4048 Feb, [facility] [place] [facility] [address] [id number] [place] [address]- 5614 Feb, [facility] [place] [facility] [address] [id number] [place] [address]- 7595 Feb, [facility] [place] [facility] [address] [id number] [place] [address]- 7784 Feb, [facility] [place] [facility] [address] [id number] [place] [address]- 0535 Feb, [facility] [place] [facility] [address] [id number] [place] [address]- 3831 Feb, [facility] [place] [facility] [address] [id number] [place] [address]- 3514 Feb, [facility] [place] [facility] [address] [id number] [place] [address]- 4165 Feb, [facility] [place] [facility] [address] [id number] [place] [address]- 4122 Feb, [facility] [place] [facility] [address] [id number] [place] [address]- 0470 Feb, [facility] [place] [facility] [address] [id number] [place] [address]- 7083 Feb, [facility] [place] [facility] [address] [id number] [place] [address]- 1837 Feb, [facility] [place] [facility] [address] [id number] [place] [address]- 2204 Feb, [facility] [place] [facility] [address] [id number] [place] [address]- 8098 Feb, [facility] [place] [facility] [address] [id number] [place] [address]- 5351 Feb, [facility] [place] [facility] [address] [id number] [place] [address]- 1764 Feb, [facility] [place] [facility] [address] [id number] [place] [address]- 0007 Feb, [facility] [place] [facility] [address] [id number] [address] 8391 Feb, [facility] [place] [facility] [address] [id number] [place] [address]- 1962 Feb, [facility] [place] [facility] [address] [id number] [place] [address]- 0121 Jan, [facility] [place] [facility] [address] [id number] [place] [address]- 1622 Jan, [facility] [place] [facility] [address] [id number] [place] [address]- 1228 Jan, [facility] [place] [facility] [address] [id number] [place] [address]- 2043 Jan, [facility] [place] [facility] [address] [id number] [place] [address]- 0473 Jan, [facility] [place] [facility] [address] [id number] [place] [address]- 6039 Jan, [facility] [place] [facility] [address] [id number] [place] [address]- 4350 Jan, [facility] [place] [facility] [address] [id number] [place] [address]- 9051 18 Jan, 2014 [facility] [place] [facility] [address] [id number] [place] [address]- 7492 Jan, [facility] [place] [facility] [address] [id number] [place] [address]- 0168 Jan, [facility] [place] [facility] [address] [id number] [place] [address]- 4408 Jan, [facility] [place] [facility] [address] [id number] [place] [address]- 2650 Jan, [facility] [place] [facility] [address] [facility] [id number] [place] [address]- 7806 Jan, [facility] [place] [facility] [address] [id number] [place] [address]- 5937 Jan, [facility] [place] [facility] [address] [id number] [place] [address]- 7216 Dec, [facility] [place] [facility] [address] [id number] [place] [address]- 1848 Dec, [facility] [place] [facility] [address] [id number] [place] [address]- 2757 Dec, [facility] [place] [facility] [address] [id number] [place] [address]- 9162 Dec, [facility] [place] [facility] [address] [id number] [place] [address]- 6039 Dec, [facility] [place] [facility] [address] [id number] [place] [address]- 1750 Dec, [facility] [place] [facility] [address] [id number] [place] [address]- 5689 Dec, [facility] [place] [facility] [address] [id number] [place] [address]- 7832 Dec, [facility] [place] [facility] [address] [id number] [place] [address]- 3705 Dec, [facility] [place] [facility] [address] [id number] [place] [address]- 5274 Nov, [facility] [place] [facility] [address] [id number] [place] [address]- 0238 Nov, [facility] [place] [facility] [address] [id number] [place] [address]- 8587 Nov, [facility] [place] [facility] [address] [id number] [place] [address]- 5950 Nov, [facility] [place] [facility] [address] [id number] [place] [address]- 6616 Oct, [facility] [place] [facility] [address] [id number] [place] [address]- 6302 Oct, [facility] [place] [facility] [address] [id number] [place] [address]- 5256 Oct, [facility] [place] [facility] [address] [id number] [place] [address]- 9461 Oct, [facility] [place] [facility] [address] [id number] [place] [address]- 4887 Oct, [facility] [place] [facility] [address] [id number] [place] [address]- 4632 Oct, [facility] [place] [facility] [address] [id number] [place] [address]- 1151 23 Oct, 2012 [facility] [address] [id number] [place] [address]- 4010 23 Oct, 2012 [facility] [address] [id number] [place] [address]- 4262 20 Oct, 2013 [facility] [address] [id number] [place] [address]- 0323 19 Oct, 2012 [facility] [address] [id number] [place] [address]- 8448 19 Oct, 2012 [facility] [address] [id number] [place] [address]- 2214 18 Oct, 2013 [facility] [address] [id number] [place] [address]- 5451 18 Oct, 2013 [facility] [address] [id number] [place] [address]- 3642 17 Oct, 2013 [facility] [address] [id number] [place] [address]- 2832 17 Oct, 2013 [facility] [address] [id number] [place] [address]- 8710 17 Oct, 2013 [facility] [address] [id number] [place] [address]- 2789 17 Oct, 2013 [facility] [address] [id number] [place] [address]- 2848 17 Oct, 2013 [facility] [address] [id number] [place] [address]30 17 Oct, 2013 [facility] [address] [id number] [place] [address]- 3733 11 Oct, 2013 [facility] [address] [id number] [place] [address]89 11 Oct, 2013 [facility] [address] [id number] [place] [address]- 9925 Sep, [facility] [place] [facility] [address] [id number] [place] [address]- 2010 Sep, [facility] [place] [facility] [address] [id number] [place] [address]- 4549 Sep, [facility] [place] [facility] [address] [id number] [place] [address]- 7633 Sep, [facility] [place] [facility] [address] [id number] [place] [address]- 7871 18 Sep, 2013 [facility] [place] [facility] [address] [id number] [place] [address]- 6422 Sep, [facility] [place] [facility] [address] [id number] [place] [address]- 9342 Sep, [facility] [place] [facility] [address] [id number] [place] [address]- 1379 Sep, [facility] [place] [facility] [address] [id number] [place] [address]- 3788 Sep, [facility] [place] [facility] [address] [id number] [place] [address]- 1565 Sep, [facility] [place] [facility] [address] [id number], [place] [address]- 4190 Sep, [facility] [place] [facility] [address] [id number], [place] [address]- 7611 Sep, [facility] [place] [facility] [address] [id number], [place] [address]- 8713 Aug, [facility] [place] [facility] [address] [id number] [place] [address]- 5171 Aug, [facility] [place] [facility] [address] [id number], [place] [address]- 8390 Aug, [facility] [place] [facility] [address] [id number], [place] [address]- 6361 Aug, [facility] [place] [facility] [address] [id number], [place] [address]- 8358 Aug, [facility] [place] [facility] [address] [id number] [place] [address]- 4737 Aug, 2012 [facility] [place] [facility] [address] [id number] [place] [address]- 4332 Aug, 2012 [facility] [place] [facility] [address] [id number] [place] [address]- 4960 Aug, [facility] [place] [facility] [address] [id number] [place] [address]- 6514 Aug, 2012 [facility] [place] [facility] [address] [id number] [place] [address]- 9258 16 Aug, 2013 [facility] [place] [facility] [address] [id number] [place] [address]- 2685 Aug, [facility] [place] [facility] [address] [id number] [place] [address]- 9921 10 Aug, 2013 [facility] [place] [facility] [address] [id number] [place] [address]- 2646 08 Aug, 2013 [facility] [place] [facility] [address] [id number] [place] [address]- 3128 07 Aug, 2013 [facility] [place] [facility] [address] [id number] [place] [address]- 0838 04 Aug, 2013 [facility] [place] [facility] [address] [id number], [place] [address]- 3800 Aug, [facility] [place] [facility] [address] [id number], [place] [address]- 9171 Aug, [facility] [place] [facility] [address] [id number] [place] [address]- 6512 Jul, [facility] [place] [facility] [address] [id number] [place] [address]97 Jun, [facility] [place] [facility] [address] [id number] [place] [address]- 3821 Jun, [facility] [place] [facility] [address] [id number] [place] [address]- 3652 May, [facility] [place] [facility] [address] [id number] [place] [address]- 3548 May, [facility] [place] [facility] [address] [id number] [place] [address]- 9831 Apr, [facility] [place] [facility] [address] [id number] [place] [address]- 0238 Apr, [facility] [place] [facility] [address] [id number] [place] [address]- 4275 Apr, [facility] [place] [facility] [address] [id number] [place] [address]- 3151 Apr, [facility] [place] [facility] [address] [id number] [place] [address]- 9178 Apr, [facility] [place] [facility] [address] [id number] [place] [address]- 8621 Apr, [facility] [place] [facility] [address] [id number] [place] [address]- 3363 Apr, [facility] [place] [facility] [address] [id number] [place] [address]- 5832 Apr, [facility] [place] [facility] [address] [id number] [place] [address]- 3646 Apr, [facility] [place] [facility] [address] [id number] [place] [address]- 6190 Apr, [facility] [place] [facility] [address] [id number] [place] [address]- 2648 Apr, [facility] [place] [facility] [address] [id number] [place] [address]- 7483 March, [facility] [place] [facility] [address] [id number] [place] [address]- 7346 March, [facility] [place] [facility] [address] [id number] [place] [address]- 4707 March, [facility] [address] [id number] [place] [address]- 1448 March, [facility] [address] [id number] [place] [address]- 9348 March, [facility] [address] [id number] [place] [address]- 8183 Feb, [facility] [address] [id number] [place] [address]- 4284 Feb, [facility] [address] [id number] [place] [address]- 7405 Jan, [facility] [address] [id number] [place] [address]- 0065 Jan, [facility] [address] [id number] [place] [address]- 9577 Jan, [facility] [address] [id number] [place] [address]- 2231 Jan, [facility] [address] [id number] [place] [address]- 5594 Jan, [facility] [address] [id number] [place] [address]- 4108 Dec, [facility] [address] [id number] [place] [address]- 4300 Dec, [facility] [place] [facility] [address] [id number], [place] [address]- 8536 Nov, [facility] [place] [facility] [address] [id number] [place] [address]- 5378 Nov, [facility] [place] [facility] [address] [id number] [place] [address]- 4151 Nov, [facility] [place] [facility] [address] [id number] [place] [address]- 2941 Nov, [facility] [place] [facility] [address] [id number] [place] [address]- 2990 15 Nov, 2012 [facility] [address] [id number] [place] [address]- 2739 14 Nov, 2012 [facility] [place] [facility] [address] [id number] [place] [address]- 8657 14 Nov, 2012 [facility] [address] [id number] [place] [address]- 1615 Nov, [facility] [place] [facility] [address] [id number] [place] [address]- 7103 Nov, [facility] [address] [id number] [place] [address]- 7787 Nov, [facility] [place] [facility] [address] [id number] [place] [address]- 0536 Nov, [facility] [address] [id number] [place] [address]- 1589 Oct, [facility] [place] [facility] [address] [id number] [place] [address]- 6513 Oct, [facility] [place] [facility] [address] [id number] [place] [address]- 1779 Sep, [facility] [place] [facility] [address] [id number] [place] [address]- 0406 Sep, [facility] [place] [facility] [address] [id number] [place] [address]- 2597 Sep, [facility] [place] [facility] [address] [id number] [place] [address]- 0235 Sep, [facility] [place] [facility] [address] [id number] [place] [address]- 2439 Sep, [facility] [place] [facility] [address] [id number] [place] [address]- 8438 Sep, [facility] [place] [facility] [address] [id number] [place] [address]- 2270 Sep, [facility] [place] [facility] [address] [id number] [place] [address]- 5205 Sep, [facility] [place] [facility] [address] [id number] [place] [address] Sep, [facility] [place] [facility] [address] [id number] [place] [address] Sep, [facility] [place] [facility] [address] [id number] [place] [address], [place] [address] Sep, [facility] [place] [facility] [address] [id number] [place] [address] Sep, [facility] [place] [facility] [address] [id number] [place] [address] Sep, [facility] [place] [facility] [address] [id number] [place] [address] Sep, [facility] [place] [facility] [address] [id number] [place] [address] Aug, [facility] [place] [facility] [address] [id number] [place] [address] Aug, [facility] [place] [facility] [address] [id number] [place] [address] Aug, [facility] [place] [facility] [address] [id number] [place] [address] Aug, [facility] [place] [facility] [address] [id number], [place] [address] Aug, [facility] [place] [facility] [address] [id number] [place] [address] Aug, [facility] [place] [facility] [address] [id number] [place] [address] Aug, [facility] [place] [facility] [address] [id number] [place] [address] Aug, [facility] [place] [facility] [address] [id number], [place] [address] Aug, [facility] [address] [facility] [id number] [address] Aug, [facility] [address] [facility] [id number], [place] [address] Aug, [facility] [address] [facility] [id number], [place] [address] Aug, [facility] [address] [facility] [id number], [place] [address] Aug, [facility] [address] [facility] [id number] [address] [address] Aug, [facility] [address] [facility] [id number], [place] [address] Aug, [facility] [id number], [place] [address] Aug, [facility] [address] [id number], [place] [address] Aug, [facility] [address] [id number] [address] Jul, [facility] [id number], [place] [address] Jun, [facility] [id number], [place] [address] Aug, [facility] [id number], [place] [address] Aug, [facility] [address] [id number] [address] Aug, IMMUNIZATIONS No Known Immunizations SOCIAL HISTORY Never Assessed REASON FOR VISIT cellulitis/leg pain started 2.5 weeks ago [facility] OF CARE VITAL SIGNS Height 62 in 2018-07-14 Weight 457.6 lbs 2018-07-14 Temperature 98.8 degrees Fahrenheit 2018-07-14 Heart Rate 84 bpm 2018-07-14 Respiratory Rate 22 2018-07-14 BMI 83.69 kg/m2 2018-07-14 Blood pressure systolic 150 mmHg 2018-07-14 Blood pressure diastolic 90 mmHg 2018-07-14 MEDICATIONS Medication Instructions Dosage Frequency Start Date End Date Duration Status Martine HFA 108 (90 Base) MCG/ACT INHALE TWO PUFFS BY MOUTH EVERY 4 TO 6 HOURS NEEDED FOR COUGH OR WHEEZE 17 Active Incontinence Supplies - Depends brief-size requested by patient 8h Apr Active Simvastatin 20 mg Orally at bedtime 1 tablet 30 day Active Cymbalta 60 MG TAKE ONE CAPSULE BY MOUTH ONCE DAILY 30 Active Wheelchair 1 as directed March, Active Metoprolol Tartrate 50 MG Orally Twice a day 1 tablet with food 12h Active Triamcinolone Acetonide 0.1 % APPLY TO AFFECTED AREA TWICE DAILY FOR 10 DAYS 10 Active Ropinirole HCl 4 MG Orally Once a day 1 tablet 1 to 3 hours before bedtime 24h 4 Active Potassium Chloride ER 20 MEQ TAKE ONE TABLET BY MOUTH ONCE DAILY WITH FOOD 30 Active Aspirin 81 81 MG Orally Once a day 1 tablet 24h Active Clopidogrel Bisulfate 75 MG Orally Once a day 1 tablet 24h Active Entresto 24-26 MG Orally Twice a day 1 tablet 12h Active Levothyroxine Sodium 75 MCG Orally Once a day 1 tablet on an empty stomach in the morning 24h Active Metolazone 2.5 MG Orally Once a day 1 tablet 24h 30 day Active Neurontin 300 MG Orally Once a day at night 1 capsule 30 Active Protonix 40 mg Orally Once a day 1 tablet 24h 28 Jan, 2018 30 day(s) Active Keflex 500 mg Orally 4 times a day 1 capsule 6h Jun, Jul, 10 day(s) Active Cyclobenzaprine HCl 10 MG TAKE ONE TABLET BY MOUTH AT BEDTIME 28 Active RESULTS No Results PROCEDURES No Known [...] Medical History Other abnormal glucose Medical History 9/27/16 Multi Vessel CAD ([place]) Drug Eluting stend [...] surgery 08/16/2016 Hospitalization History Chest pain, CAD, HTN-[facility] [place] 05/14/17 Hospitalization History chest pain, edema-[facility] [place] 05/04/18
--- OUTSIDE RECORDS SUMMARY | 2018-09-08 15:04 | XMS REPORT ---
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 Active 44801872 Problem Urge incontinence of urine N39.41 Active 34306167 Problem Dependence on supplemental oxygen Z99.81 Active 943713714479 Problem Other chronic pain G89.29 Active 00436605 Problem Restless legs syndrome G25.81 Active 708273709 Problem Chronic systolic heart failure I50.22 Active 268943808 Problem Chronic pain syndrome G89.4 Active 536443534 Problem Gastroesophageal reflux disease without esophagitis K21.9 Active 566717477 Problem Morbid obesity E66.01 Active 487588790 Problem Morbid (severe) obesity due to excess calories E66.01 Active 677464513 Problem Lumbar pain M54.5 Active 860522292 Problem Chronic stasis dermatitis I83.10 Active 48028544 Problem Essential hypertension I10 Active 83057151 Problem Acquired hypothyroidism E03.9 Active 726547826 Problem Nocturnal hypoxia G47.34 Active 254533499 Problem Mixed hyperlipidemia E78.2 Active 240908212 Problem Renal insufficiency N28.9 Active 331035058 Problem Edema of both legs R60.0 Active 276034141 Problem Lymphedema I89.0 Active 786476663 Problem Stasis dermatitis without varicosities I87.2 Active [id number] ALLERGIES No Information ENCOUNTERS Encounter Location Date Diagnosis [facility] [address] [facility] [id number], [place] [address] Jun, Cellulitis of right lower leg L03.115 [facility] [place] [address] [facility] [id number], [place] [address] Jun, [facility] [place] [address], [place] [address] May, [facility] [place] [id number] [place] [address] 12483- 3136 May, [facility] [place] [address] [place] [address] 25258- 2805 Apr, Essential hypertension I10 ; Chronic systolic heart failure I50.22 ; Pain in right knee M25.561 ; Pain in left knee M25.562 ; Other chronic pain G89.29 ; Mixed hyperlipidemia E78.2 ; Morbid obesity E66.01 and Body mass index (BMI) 70 or greater, adult Z68.45 [place] [id number] [place] [address] 34216- 0732 18 Apr, 2018 [facility] [place] [id number] [place] [address] 03141- 1809 Apr, Acquired hypothyroidism E03.9 [facility] [place] [id number] [place] [address] 71776- 5058 08 Apr, 2018 Acquired hypothyroidism E03.9 [facility] [place] [id number] [place] [address] 01706- 7506 Apr, [facility] [place] [address] [place] [address] 94837- 4856 Apr, [facility] [place] [id number] [place] [address] 86779- 7812 Apr, Acquired hypothyroidism E03.9 ; Morbid (severe) obesity due to excess calories E66.01 ; Body mass index (BMI) 70 or greater, adult Z68.45 ; Restless legs syndrome G25.81 ; Essential hypertension I10 and Lymphedema I89.0 [facility] [place] [address] [place] [address] 73030- 1299 Feb, [facility] [place] [address], [place] [address] Jan, [facility] [place] [id number] [place] [address] 17558- 6087 28 Jan, 2018 [facility] [place] [id number] [place] [address] 39109- 1227 Jan, Acquired hypothyroidism E03.9 ; Morbid (severe) obesity due to excess calories E66.01 ; Body mass index (BMI) 70 or greater, adult Z68.45 ; Cellulitis of left anterior lower leg L03.116 ; Restless legs syndrome G25.81 ; Nocturnal hypoxia G47.34 and Dependence on supplemental oxygen Z99.81 [place] [id number] [place] [address] 44323- 8037 22 Jan, 2018 [place] [id number] [place] [address] 34482- 0437 12 Dec, 2017 [place] [id number] [place] [address] 30455- 1357 Oct, [place] [id number] [place] [address] 66471- 3729 07 Oct, 2017 [place] [id number] [place] [address] 83332- 4717 Sep, [place] [id number] [place] [address] 29571- 0582 16 Sep, 2017 [place] [id number] [place] [address] 96411- 2936 16 Sep, 2017 Dental examination Z01.20 [facility] [place] [id number] [place] [address] 44207- 7731 Sep, Morbid obesity due to excess calories E66.01 ; Body mass index (BMI) of 70 or greater in adult Z68.45 ; Stasis dermatitis without varicosities I87.2 ; Lymphedema I89.0 ; Renal insufficiency N28.9 ; Acquired hypothyroidism E03.9 ; Cellulitis L03.90 ; Bronchitis J40 and BMI 40.0-44.9, adult Z68.41 [place] [id number] [place] [address] 52986- 1263 Aug, [facility] [address] [facility] [id number] [id number] Aug, Dental examination Z01.20 [facility] [place] [address] [id number], [place] [address] Aug, [facility] [place] [address], [place] [address] Jul, [facility] [id number] [place] [address] 07661- 4653 Jul, [facility] [address] [id number], [place] [address] 8840 18 Jul, 2017 [facility] [place] [address] [place] [address] 40429- 6562 Jul, [facility] [id number] [place] [address] 30146- 4683 Jul, [facility] [address], [place] [address]646 Jun, [facility] [place] [address] [place] [address] 25417- 5956 Jun, Dependence on nocturnal oxygen therapy Z99.81 ; Morbid obesity due to excess calories E66.01 and Bronchitis J40 [facility] [place] [address], [place] [address] 6[address] Jun, Restless legs syndrome G25.81 [facility] [place] [address], [place] [address] 0532 Jun, [facility] [address], [place] [address] 1231 May, [facility] [id number] [place] [address] [id number] Apr, [facility] [address], [place] [address] 2451 Apr, [facility] [address] [id number] [address] 7128 Apr, Essential hypertension I10 [facility] [place] [id number] [place] [address] 04206- 5294 Apr, [facility] [place] [id number] [place] [address] 89195- 9741 13 Apr, 2017 Chronic pain syndrome G89.4 and Urge incontinence of urine N39.41 [place] [id number] [place] [address] 52810- 3449 March, Acquired hypothyroidism E03.9 [place] [id number] [place] [address] 01118- 8913 March, [facility] [place] [id number] [place] [address] 03560- 3216 March, [place] [id number] [place] [address] 43423- 7832 March, Chronic pain syndrome G89.4 ; Essential [...] extremity L03.116 and Screening breast examination Z12.39 [place] [id number] [place] [address] 23745- 5014 March, [facility] [place] [id number] [place] [address] 15278- 0879 Feb, [place] [id number] [place] [address] 19108- 9843 Feb, [facility] [place] [id number] [place] [address] 40833- 2826 Feb, Chronic pain syndrome G89.4 [facility] [id number] [place] [address] 11661 -3834 Feb, Right foot pain M79.671 and Right foot sprain, initial encounter S93.601A [place] [id number] [place] [address] 01710- 5742 Jan, [facility] [place] [id number] [place] [address] 69512- 6959 Jan, [place] [address] 81399- 6714 Jan, Chronic pain syndrome G89.4 [place] [id number] [place] [address] 91541- 4795 Jan, [place] [id number] [place] [address] 07487- 2934 Dec, [place] [id number] [place] [address] 61056- 2696 Dec, [place] [id number] [place] [address] 99662- 6783 Dec, Pain in right knee M25.561 ; Pain in left knee M25.562 ; Essential hypertension I10 ; Chronic stasis dermatitis I83.10 ; Restless legs syndrome G25.81 ; Acquired hypothyroidism E03.9 ; Dependence on nocturnal oxygen therapy Z99.81 ; Mixed hyperlipidemia E78.2 ; Lymphedema I89.0 ; Chronic pain syndrome G89.4 ; Gastroesophageal reflux disease without esophagitis K21.9 and Urge incontinence of urine N39.41 [place] [address] [place] [address] 77506- 6789 Nov, Mixed hyperlipidemia E78.2 [place] [id number] [place] [address] 15414- 1663 Nov, [place] [id number] [place] [address] 66829- 5230 Nov, [place] [id number] [place] [address] 95306- 2595 Nov, [facility] [address] [facility] [id number], [place] [address] Nov, Stasis ulcer, left I83.029 [facility] [place] [address] [id number], [place] [address]- 8323 Nov, [facility] [place] [address], [place] [address]- 4790 Oct, [facility] [place] [address], [place] [address]- 8675 Oct, [facility] [place] [address], [place] [address]- 7374 Oct, [facility] [place] [address], [place] [address]- 9212 Sep, [facility] [place] [address], [place] [address]- 7209 Sep, [address] [id number] Sep, [facility] [place] [address] [id number], [place] [address] 1987 Aug, [facility] [place] [address], [place] [address] 1994 Jul, [facility] [place] [id number], [place] [address]- 7507 Jul, [facility] [place] [id number], [place] [address]- 3715 Jul, [facility] [place] [id number], [place] [address]- 2157 Jul, [facility] [place] [id number], [place] [address]- 9375 14 Jul, 2016 Chest pain, unspecified type R07.9 ; Dyspnea on exertion R06.09 ; Essential hypertension I10 ; Hyperlipidemia, unspecified hyperlipidemia type E78.5 ; Left bundle branch block I44.7 and Hypothyroidism, unspecified type E03.9 [facility] [id number] [place] [address] 71756 -5786 Jun, Fever, unspecified fever cause R50.9 ; Headache, unspecified headache type R51 ; SOB (shortness of breath) R06.02 and Strep pharyngitis J02.0 [facility] [place] [id number] [place] [address] 18202- 5819 Jun, [facility] [place] [address] 35386- 6356 Jun, [facility] [place] [address] 85910- 2178 Jun, Essential hypertension I10 ; Mixed hyperlipidemia E78.2 and Acquired hypothyroidism E03.9 [facility] [place] [address] 02192- 8639 Jun, Edema of both legs R60.0 ; Hypoxia R09.02 and Essential hypertension I10 [place] [id number] [place] [address] 89158- 9844 Jun, [facility] [place] [address] 39765- 1918 Jun, Edema of both legs R60.0 ; Hypoxia R09.02 and Essential hypertension I10 [facility] [place] [id number] [place] [address] 42149- 0092 Jun, Essential hypertension I10 ; Dependence on supplemental oxygen Z99.81 and Edema of both legs R60.0 [place] [id number] [place] [address] 27353- 8832 May, Lumbar pain M54.5 ; Essential hypertension I10 ; Edema of both legs R60.0 ; Stasis dermatitis without varicosities I87.2 and Left knee pain M25.562 [facility] [place] [id number] [place] [address] 39331- 8926 May, [facility] [place] [address] [place] [address]- 2088 May, [facility] [place] [address], [place] [address]- 0231 May, [facility] [place] [address], [place] [address]- 9143 Apr, [facility] [place] [id number] [place] [address] 88265- 3573 Apr, [facility] [place] [id number] [place] [address] 18507- 2213 March, [facility] [place] [address] [place] [address] 29782- 0957 March, Lymphedema I89.0 ; Morbid obesity due to excess calories E66.01 ; Alteration in mobility due to weakness R53.1 and Hypoxia R09.02 [place] [address] [place] [address] 98209- 5903 March, Abdominal wall mass R19.00 [facility] [place] [id number] [place] [address] 23590- 9112 March, [facility] [place] [address] [place] [address] 92194- 0506 March, Abdominal wall mass R19.00 ; Lower abdominal pain R10.30 ; Alteration in mobility due to weakness R53.1 ; Hypoxia R09.02 and Lymphedema I89.0 [facility] [place] [address], [place] [address]- 2433 Feb, [facility] [place] [address], [place] [address]- 8666 Feb, Acquired hypothyroidism E03.9 ; Dependence on machine for supplemental oxygen V46.2 ; Restless legs syndrome G25.81 ; Essential hypertension I10 ; Renal insufficiency N28.9 ; Chronic stasis dermatitis I83.10 ; Mixed hyperlipidemia E78.2 ; Other chronic pain 338.29 and Cellulitis of left lower extremity L03.116 [place] [id number] [place] [address] 73699- 6145 Feb, [facility] [place] [id number] [place] [address] 68049- 0747 Feb, [facility] [id number] [place] [address] 56352 -5506 Feb, Shortness of breath R06.02 and Bronchitis J40 [facility] [place] [address] 65363- 7708 Jan, Dependence on supplemental oxygen Z99.81 [place] [id number] [place] [address] 21793- 5253 Jan, [place] [address] 66890- 9636 Dec, [place] [address] 49239- 1978 Dec, [place] [address] 96313- 2327 Nov, Osteoarthritis of knees, bilateral M17.[address] 74061- 9633 Nov, Dependence on machine for supplemental oxygen V46.2 ; Nocturnal hypoxia G47.34 and Urgency of urination R39.[address] 17140- 4474 Nov, [address] 59313- 9069 Oct, Pain in right knee M25.561 and Pain in left knee M25.[address] 86231- 6691 Oct, Acquired hypothyroidism E03.9 ; Renal insufficiency N28.9 and Chronic stasis dermatitis I83.[address] 58601- 5496 Oct, [facility] [place] [id number] [place] [address] 58206- 3226 Sep, Cellulitis L03.90 ; Left knee pain M25.562 ; Essential hypertension I10 ; Lymphedema I89.0 ; Lumbar pain M54.5 ; Morbid obesity due to excess calories E66.01 and Renal insufficiency N28.9 [facility] [place] [address] 73102- 8605 Sep, Cellulitis L03.90 and Lymphedema I89.0 [facility] [place] [address] 97958- 3648 Sep, [place] [address] 33514- 9164 Sep, [facility] [place] [address] 87293- 1826 Sep, Left knee pain M25.562 ; Lumbar pain M54.5 ; Restless legs syndrome G25.81 ; Acquired hypothyroidism E03.9 and Essential hypertension I10 [facility] [place] [id number] [place] [address] 29515- 2674 Jul, [facility] [place] [id number] [place] [address] 16637- 7825 Jun, [facility] [id number] [place] [address] 86917- 1770 May, [facility] [address] 67534- 4609 May, [facility] [id number] [place] [address] 02735- 0830 May, Hypertension 997.91 ; Restless legs syndrome [RLS] 333.94 ; Unspecified venous (peripheral) insufficiency 459.81 ; Unspecified hypothyroidism 244.9 and Other chronic pain 338.29 [facility] [id number] [place] [address] 99356- 8482 Apr, [facility] [address], [place] [address]- 9397 Apr, [facility] [id number] [place] [address] 44284- 1340 Apr, Restless legs syndrome [RLS] 333.94 ; Shortness of breath 786.05 ; Unspecified venous (peripheral) insufficiency 459.81 ; Unspecified hypothyroidism 244.9 ; Obesity, unspecified 278.00 ; Other chronic pain 338.29 ; Hypertension 997.91 and Hyperlipidemia 272.4 [facility] [id number] [place] [address] 03588- 6468 Feb, [facility] [id number] [place] [address] 95553- 1583 Feb, [facility] [id number] [place] [address] 999818- 3889 Jan, [facility] [id number] [place] [address] [phone] 8954 Jan, [facility] [place] [id number] [place] [address] [id number] 5204 Jan, [facility] [place] [id number] [place] [address]25- 4954 Jan, [facility] [place] [address] [id number] [address] Jan, [facility] [place] [id number] [place] [address] [phone] 9458 Jan, [facility] [place] [id number] [address] Jan, [facility] [place] [id number] [place] [address] [id number] Jan, [facility] [place] [id number] [address] Jan, [facility] [place] [id number] [place] [address] [id number]- 3120 Jan, [facility] [place] [facility] [address] [id number] [place] [address] Jan, [facility] [place] [facility] [address] [id number] [place] [address] 6410 Jan, [facility] [place] [facility] [address] [id number] [place] [address]- 4723 Jan, [facility] [place] [facility] [address] [id number] [place] [address]- 8580 Jan, [facility] [place] [facility] [address] [id number] [place] [address]- 0125 Dec, [facility] [place] [facility] [address] [id number] [place] [address]- 8826 Dec, [facility] [place] [facility] [address] [id number] [place] [address]- 8916 Nov, [facility] [place] [facility] [address] [id number] [place] [address]- 5860 Nov, [facility] [place] [facility] [address] [id number] [place] [address]- 9138 Nov, [facility] [place] [facility] [address] [id number] [place] [address]- 8809 Nov, [facility] [place] [facility] [address] [id number], [place] [address] Nov, [facility] [place] [facility] [address] [id number] [place] [address]- 4511 Nov, [facility] [place] [facility] [address] [id number] [place] [address]- 9381 Nov, [facility] [place] [facility] [address] [id number] [place] [address]- 7823 Nov, [facility] [place] [facility] [address] [id number] [place] [address]- 0991 Nov, [facility] [place] [facility] [address] [id number] [place] [address]- [address]26 14 Nov, 2014 [facility] [address] [id number] [place] [address]- 1066 14 Nov, 2014 [facility] [place] [facility] [address] [id number] [place] [address]- 0399 13 Nov, 2014 [facility] [place] [facility] [address] [id number] [place] [address]- 4377 Nov, [facility] [place] [facility] [address] [id number] [place] [address]- 4247 Nov, [facility] [place] [facility] [address] [id number] [place] [address]- 6532 Nov, [facility] [place] [facility] [address] [id number] [place] [address]- 4803 Nov, [facility] [place] [facility] [address] [id number] [place] [address]- 3854 Oct, [facility] [address] [id number] [place] [address]- 5828 Oct, [facility] [place] [facility] [address] [address] [id number] [place] [address] Sep, [facility] [place] [facility] [address] [id number] [place] [address] Aug, [facility] [place] [facility] [address] [id number] [place] [address] Aug, [facility] [place] [facility] [address] [id number] [place] [address] 6433 Aug, [facility] [place] [facility] [address] [id number] [place] [address] 8243 Aug, [facility] [place] [facility] [address] [id number] [place] [address] 0661 Aug, [facility] [place] [facility] [address] [id number] [place] [address] 455[address] Aug, [facility] [place] [facility] [address] [id number] [place] [address] 4380 Aug, [facility] [place] [facility] [address] [id number] [place] [address]- 7611 Aug, [facility] [place] [facility] [address] [id number] [place] [address]- 8791 Aug, [facility] [place] [facility] [address] [id number] [place] [address]- 9183 Aug, [facility] [place] [facility] [address] [id number] [place] [address]- 4[address] Jun, [facility] [place] [facility] [address] [id number] [place] [address]- 2954 Jun, [facility] [place] [facility] [address] [id number] [place] [address]- 5416 Jun, [facility] [place] [facility] [address] [id number] [place] [address]- 5612 Jun, [facility] [place] [facility] [address] [id number] [place] [address]- 4396 Jun, [facility] [place] [facility] [address] [id number] [place] [address]- 2901 Jun, [facility] [place] [facility] [address] [id number] [place] [address]- 9185 Jun, [facility] [place] [facility] [address] [id number] [place] [address]- 8049 Jun, [facility] [place] [facility] [address] [id number] [place] [address]- 7186 Jun, [facility] [place] [facility] [address] [id number] [place] [address]- 6[address] Jun, [facility] [place] [facility] [address] [id number] [place] [address]- 8525 May, [facility] [place] [facility] [address] [id number] [place] [address]- 8233 May, 2013 [facility] [place] [facility] [address] [id number] [place] [address]- 4888 May, 2013 [facility] [place] [facility] [address] [id number] [place] [address]- 0250 May, 2013 [facility] [place] [facility] [address] [id number] [place] [address]- 1957 May, 2013 [facility] [place] [facility] [address] [id number] [place] [address]- 0988 May, 2013 [facility] [place] [facility] [address] [id number] [place] [address]- 1433 May, 2013 [facility] [place] [facility] [address] [id number] [place] [address]- 0998 May, 2013 [facility] [place] [facility] [address] [id number] [place] [address]- 7445 May, 2013 [facility] [place] [facility] [address] [id number] [place] [address]- 7598 May, 2013 [facility] [place] [facility] [address] [id number] [place] [address]- 2784 May, 2013 [facility] [place] [facility] [address] [id number] [place] [address]- 2859 May, 2013 [facility] [place] [facility] [address] [id number] [place] [address]- 1723 May, 2013 [facility] [place] [facility] [address] [id number] [place] [address]- 3090 May, 2013 [facility] [place] [facility] [address] [id number] [place] [address]- 9585 May, 2013 [facility] [place] [facility] [address] [id number] [place] [address]- 7645 May, 2013 [facility] [place] [facility] [address] [id number] [place] [address]- 3458 May, 2013 [facility] [place] [facility] [address] [id number] [place] [address]- 1712 May, [facility] [place] [facility] [address] [id number] [place] [address]- 2680 Apr, [facility] [place] [facility] [address] [id number] [place] [address]- 7706 Apr, [facility] [place] [facility] [address] [id number] [place] [address]- 9741 Apr, [facility] [place] [facility] [address] [id number] [place] [address]- 5005 Apr, [facility] [place] [facility] [address] [id number] [place] [address]- 8513 Apr, [facility] [place] [facility] [address] [id number] [place] [address]- 4892 Apr, [facility] [place] [facility] [address] [id number] [place] [address]- 4709 Apr, [facility] [place] [facility] [address] [id number] [place] [address]- 9473 Apr, [facility] [place] [facility] [address] [id number] [place] [address]- 4274 Apr, [facility] [place] [facility] [address] [id number] [place] [address]- 0033 Apr, [facility] [place] [facility] [address] [id number] [place] [address]- 2555 Apr, [facility] [place] [facility] [address] [id number] [place] [address]- 0527 Apr, [facility] [place] [facility] [address] [id number] [place] [address]- 0366 March, [facility] [place] [facility] [address] [id number] [place] [address]- 2631 March, [facility] [place] [facility] [address] [id number] [place] [address]- 3311 March, [facility] [place] [facility] [address] [id number] [place] [address]- 3509 March, [facility] [place] [facility] [address] [id number] [place] [address]- 8183 March, [facility] [place] [facility] [address] [id number] [place] [address]- 1254 March, [facility] [place] [facility] [address] [id number] [place] [address]- 9146 March, [facility] [place] [facility] [address] [id number] [place] [address]- 7800 March, [facility] [place] [facility] [address] [id number] [place] [address]- 3182 March, [facility] [place] [facility] [address] [id number] [place] [address]- 1760 March, [facility] [place] [facility] [address] [id number] [place] [address]- 5495 March, [facility] [place] [facility] [address] [id number] [place] [address]- 0855 Feb, [facility] [place] [facility] [address] [id number] [place] [address]- 1826 Feb, [facility] [place] [facility] [address] [id number] [place] [address]- 0280 Feb, [facility] [place] [facility] [address] [id number] [place] [address]- 4542 Feb, [facility] [place] [facility] [address] [id number] [place] [address]- 4938 Feb, [facility] [place] [facility] [address] [id number] [place] [address]- 8036 Feb, [facility] [place] [facility] [address] [id number] [place] [address]- 2767 Feb, [facility] [place] [facility] [address] [id number] [place] [address]- 8681 Feb, [facility] [place] [facility] [address] [id number] [place] [address]- 6995 Feb, [facility] [place] [facility] [address] [id number] [place] [address]- 1481 Feb, [facility] [place] [facility] [address] [id number] [place] [address]- 7614 Feb, [facility] [place] [facility] [address] [id number] [place] [address]- 5355 Feb, [facility] [place] [facility] [address] [id number] [place] [address]- 5961 Feb, [facility] [place] [facility] [address] [id number] [place] [address]- 4387 Feb, [facility] [place] [facility] [address] [id number] [place] [address]- 9697 Feb, [facility] [place] [facility] [address] [id number] [place] [address]- 2902 Feb, [facility] [place] [facility] [address] [id number] [place] [address]- 6504 Feb, [facility] [place] [facility] [address] [id number] [place] [address]- 0779 Feb, [facility] [place] [facility] [address] [id number] [place] [address]- 5385 Feb, [facility] [place] [facility] [address] [id number] [place] [address]- 4297 Feb, [facility] [place] [facility] [address] [id number] [place] [address]- 1698 Jan, [facility] [place] [facility] [address] [id number] [place] [address]- 7263 Jan, [facility] [place] [facility] [address] [id number] [place] [address]- 8967 Jan, [facility] [place] [facility] [address] [id number] [place] [address]- 0725 Jan, [facility] [place] [facility] [address] [id number] [place] [address]- 9753 Jan, [facility] [place] [facility] [address] [id number] [place] [address]- 7089 Jan, [facility] [place] [facility] [address] [id number] [place] [address]- 4903 Jan, [facility] [place] [facility] [address] [id number] [place] [address]- 8890 Jan, [facility] [place] [facility] [address] [id number] [place] [address]- 5408 Jan, [facility] [place] [facility] [address] [id number] [place] [address]- 5869 Jan, [facility] [place] [facility] [address] [id number] [place] [address]- 4832 Jan, [facility] [place] [facility] [address] [id number] [place] [address]- 1761 Jan, [facility] [place] [facility] [address] [id number] [place] [address]- 9714 Jan, [facility] [place] [facility] [address] [id number] [place] [address]- 5094 Jan, [facility] [place] [facility] [address] [id number] [place] [address]- 0717 Dec, [facility] [place] [facility] [address] [id number] [place] [address]- 5383 Dec, [facility] [place] [facility] [address] [id number] [place] [address]- 4838 Dec, [facility] [place] [facility] [address] [id number] [place] [address]- 9865 Dec, [facility] [place] [facility] [address] [id number] [place] [address]- 2673 Dec, [facility] [address] [id number] [place] [address]- 8626 Dec, [facility] [address] [id number] [place] [address] Dec, [facility] [address] [id number] [place] [address]- 9706 Dec, [facility] [address] [id number] [place] [address] 2549 Dec, [facility] [address] [id number] [place] [address]- 8963 Nov, [facility] [address] [id number] [place] [address]- 3628 Nov, [facility] [address] [id number] [place] [address]- 1411 Nov, [facility] [address] [id number] [place] [address]- 2312 Nov, [facility] [address] [id number] [place] [address]- 5465 Oct, [facility] [address] [id number] [place] [address]- 3105 Oct, [facility] [address] [id number] [place] [address] 2546 Oct, [facility] [address] [id number] [place] [address]- 2543 Oct, [facility] [place] [facility] [address] [id number] [place] [address] 2542 Oct, [facility] [place] [facility] [address] [id number] [place] [address]- 2543 Oct, [facility] [address] [id number] [place] [address]- 3006 Oct, [facility] [place] [facility] [address] [id number] [place] [address] 23 Oct, 2013 [facility] [address] [id number] [place] [address]- 8084 20 Oct, 2013 [facility] [address] [id number] [place] 1151 19 Oct, 2013 [facility] [place] [facility] [address] [id number] [place] [address]- 6941 19 Oct, 2013 [facility] [address] [id number] [place] 4416 18 Oct, 2013 [facility] [address] [id number] [place] [address]- 4471 18 Oct, 2013 [facility] [address] [id number] [place] [address]- 5377 17 Oct, 2013 [facility] [address] [id number] [place] [address]- 6240 17 Oct, 2013 [facility] [address] [id number] [place] [address]- 3736 17 Oct, 2013 [facility] [address] [id number] [place] [address]- 1973 17 Oct, 2013 [facility] [place] [facility] [address] [id number] [place] [address]- 5229 17 Oct, 2013 [facility] [place] [facility] [address] [id number] [place] [address]- 2444 17 Oct, 2013 [facility] [place] [facility] [address] [id number] [place] [address]- 1345 11 Oct, 2013 [facility] [place] [facility] [address] [id number] [place] [address]- 3270 11 Oct, 2013 [facility] [place] [facility] [address] [id number] [place] [address]- 9031 27 Sep, 2013 [facility] [place] [facility] [address] [id number], [place] [address]- 5291 Sep, [facility] [place] [facility] [address] [id number] [place] [address]- 4763 Sep, [facility] [place] [facility] [address] [id number], [place] [address]- 6903 Sep, [facility] [place] [facility] [address] [id number] [place] [address]- 3852 Sep, [facility] [place] [facility] [address] [id number], [place] [address]- 9916 Sep, [facility] [place] [facility] [address] [id number] [place] [address]- 6462 Sep, [facility] [place] [facility] [address] [id number] [place] [address]- 3445 Sep, [facility] [place] [facility] [address] [id number], [place] [address]- 9571 Sep, [facility] [place] [facility] [address] [id number] [place] [address]- 2265 Sep, [facility] [place] [facility] [address] [id number], [place] [address]- 8565 Sep, [facility] [place] [facility] [address] [id number] [place] [address]- 3568 Sep, [facility] [place] [facility] [address] [id number], [place] [address]- 2092 Aug, [facility] [place] [facility] [address] [id number], [place] [address]- 9354 Aug, [facility] [place] [facility] [address] [id number], [place] [address]- 8477 Aug, [facility] [place] [facility] [address] [id number], [place] [address]- 7417 Aug, [facility] [place] [facility] [address] [id number] [place] [address]- 8652 Aug, [facility] [place] [facility] [address] [id number] [place] [address]- 5527 23 Aug, 2012 [facility] [place] [facility] [address] [id number] [place] [address]- 3759 Aug, 2012 [facility] [place] [facility] [address] [id number] [place] [address]- 3286 Aug, 2012 [facility] [place] [facility] [address] [id number] [place] [address]- 2266 16 Aug, 2012 [facility] [place] [facility] [address] [id number] [place] [address]- 2279 16 Aug, 2012 [facility] [place] [facility] [address] [id number] [place] [address]- 6061 10 Aug, 2012 [facility] [place] [facility] [address] [id number] [place] [address]- 5981 10 Aug, 2012 [facility] [place] [facility] [address] [id number] [place] [address]- 2050 08 Aug, 2012 [facility] [place] [facility] [address] [id number] [place] [address]- 1275 07 Aug, 2013 [facility] [place] [facility] [address] [id number] [place] [address]- 6036 04 Aug, 2013 [facility] [place] [facility] [address] [id number] [place] [address]- 1023 Aug, [facility] [place] [facility] [address] [id number] [place] [address]- 1275 Aug, [facility] [place] [facility] [address] [id number] [place] [address]- 3636 Jul, [facility] [place] [facility] [address] [id number] [place] [address]- 2886 Jun, [facility] [place] [facility] [address] [id number] [place] [address]- 2546 Jun, [facility] [place] [facility] [address] [id number] [place] [address]- 3595 May, [facility] [place] [facility] [address] [id number] [place] [address]- 2587 May, [facility] [place] [facility] [address] [id number] [place] [address]- 3172 Apr, [facility] [place] [facility] [address] [id number] [place] [address]- 2080 Apr, [facility] [place] [facility] [address] [id number] [place] [address]- 2143 Apr, [facility] [place] [facility] [address] [id number] [place] [address]- 7351 Apr, [facility] [place] [facility] [address] [id number] [place] [address]- 1070 Apr, [facility] [place] [facility] [address] [id number] [place] [address]- 5720 Apr, [facility] [place] [facility] [address] [id number] [place] [address]- 6277 Apr, [facility] [place] [facility] [address] [id number] [place] [address]- 7124 Apr, [facility] [place] [facility] [address] [id number] [place] [address]- 7501 Apr, [facility] [place] [facility] [address] [id number] [place] [address]- 1913 Apr, [facility] [place] [facility] [address] [id number], [place] [address]- 3236 Apr, [facility] [place] [facility] [address] [id number] [place] [address]- 2766 March, [facility] [place] [facility] [address] [id number] [place] [address]- 7764 March, [facility] [place] [facility] [address] [id number] [place] [address]- 2254 March, [facility] [place] [facility] [address] [id number] [place] [address]- 6007 March, [facility] [address] [id number] [place] [address]- 6114 March, [facility] [address] [id number] [place] [address]- 0004 Feb, [facility] [address] [id number] [place] [address]- 6776 Feb, [facility] [place] [facility] [address] [id number] [place] [address]- 6963 Jan, [facility] [address] [id number] [place] [address]- 5948 Jan, [facility] [address] [id number] [place] [address]- 8936 Jan, [facility] [address] [id number] [place] [address]- 9137 Jan, [facility] [address] [id number] [place] [address]- 5627 Jan, [facility] [address] [id number] [place] [address]- 6070 Dec, [facility] [address] [id number] [place] [address]- 5500 Dec, [facility] [address] [id number] [place] [address]- 6177 Nov, [facility] [place] [facility] [address] [id number] [place] [address]- 8375 Nov, [facility] [place] [facility] [address] [id number] [place] [address]- 2298 Nov, [facility] [place] [facility] [address] [id number] [place] [address]- 2506 16 Nov, 2012 [facility] [address] [id number] [place] [address]- 4581 15 Nov, 2012 [facility] [place] [facility] [address] [id number] [place] [address]- 8867 14 Nov, 2012 [facility] [address] [id number] [place] [address]- 8214 14 Nov, 2012 [facility] [address] [id number] [place] [address]- 0702 11 Nov, 2012 [facility] [address] [id number] [place] [address]- 2106 Nov, [facility] [address] [id number] [place] [address]- 0158 Nov, [facility] [address] [id number] [place] [address]- 0247 Nov, [facility] [address] [id number] [place] [address] Oct, [facility] [address] [id number] [place] [address] Oct, [facility] [address] [id number] [place] [address] Sep, [facility] [address] [id number] [place] [address] Sep, [facility] [address] [id number] [place] [address] Sep, [facility] [address] [id number] [place] [address] Sep, [facility] [place] [facility] [address] [id number] [place] [address] Sep, [facility] [place] [facility] [address] [id number] [place] [address] Sep, [facility] [place] [facility] [address] [id number] [place] [address] 09 Sep, 2012 [facility] [address] [id number] [place] [address] Sep, [facility] [place] [facility] [address] [id number] [place] [address] Sep, [facility] [place] [facility] [address] [id number] [place] [address] Sep, [facility] [place] [facility] [address] [id number] [place] [address] Sep, [facility] [place] [facility] [address] [id number] [place] [address] Sep, [facility] [place] [facility] [address] [id number] [place] [address] Sep, [facility] [place] [facility] [address] [id number] [place] [address] Sep, [facility] [place] [facility] [address] [id number] [place] [address] Aug, [facility] [place] [facility] [address] [id number] [place] [address] Aug, [facility] [place] [facility] [address] [id number] [place] [address] Aug, [facility] [place] [facility] [address] [id number] [place] [address] Aug, [facility] [place] [facility] [address] [id number], [place] [address] Aug, [facility] [place] [facility] [address] [id number], [place] [address] Aug, [facility] [place] [facility] [address] [id number] [place] [address] Aug, [facility] [place] [facility] [address] [id number] [place] [address] Aug, [facility] [place] [facility] [address] [id number] [place] [address] Aug, [facility] [place] [facility] [id number] [address] Aug, [facility] [place] [id number] [address] Aug, [facility] [place] [id number] [address] Aug, [facility] [place] [id number] [address] Aug, [facility] [place] [id number] [address] Aug, [facility] [place] [id number] [place] [address] Aug, [facility] [place] [id number] [place] [address] Aug, [facility] [place] [id number] [place] [address] Aug, [facility] [place] [id number], [place] [address] Jul, [facility] [place] [address] [id number] [address] Jun, [facility] [place] [id number], [place] [address] Aug, [facility] [place] [id number], [place] [address] Aug, [facility] [place] [id number], [place] [address] Aug, IMMUNIZATIONS No Known Immunizations SOCIAL HISTORY Never Assessed REASON FOR VISIT refill request PLAN OF CARE VITAL SIGNS [...] surgery 08/16/2016 Hospitalization History Chest pain, CAD, HTN-[facility] 05/14/17 Hospitalization History chest pain, edema-[facility] 05/04/18
--- OUTSIDE RECORDS SUMMARY | 2018-09-08 15:05 | XMS REPORT ---
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 Active 42660179 Problem Urge incontinence of urine N39.41 Active 86462788 Problem Dependence on supplemental oxygen Z99.81 Active 825507821807 Problem Other chronic pain G89.29 Active 58206950 Problem Restless legs syndrome G25.81 Active 302861241 Problem Chronic systolic heart failure I50.22 Active 970285255 Problem Chronic pain syndrome G89.4 Active 545185821 Problem Gastroesophageal reflux disease without esophagitis K21.9 Active 707385885 Problem Morbid obesity E66.01 Active 547681266 Problem Morbid (severe) obesity due to excess calories E66.01 Active 523219810 Problem Lumbar pain M54.5 Active 585079600 Problem Chronic stasis dermatitis I83.10 Active 87471907 Problem Essential hypertension I10 Active 20719806 Problem Acquired hypothyroidism E03.9 Active 494393485 Problem Nocturnal hypoxia G47.34 Active 062352772 Problem Mixed hyperlipidemia E78.2 Active 562827477 Problem Renal insufficiency N28.9 Active 285894024 Problem Edema of both legs R60.0 Active 189364044 Problem Lymphedema I89.0 Active 765422954 Problem Stasis dermatitis without varicosities I87.2 Active 77590283 ALLERGIES No Information ENCOUNTERS Encounter Location Date Diagnosis [facility] [address] [facility] [id number] [address] Jul, [facility] [address] [facility] [id number] [address] Jun, Cellulitis of right lower leg L03.115 [place] [address] [address] Jun, [place] [id number] [place] [address] 53909- 9981 May, [facility] [id number] [place] [address] 21515- 6887 May, [facility] [id number] [place] [address] 78922- 4298 Apr, Essential hypertension I10 ; Chronic systolic heart failure I50.22 ; Pain in right knee M25.561 ; Pain in left knee M25.562 ; Other chronic pain G89.29 ; Mixed hyperlipidemia E78.2 ; Morbid obesity E66.01 and Body mass index (BMI) 70 or greater, adult Z68.45 [place] [id number] [place] [address] 89057- 4126 Apr, [place] [id number] [place] [address] 26653- 2642 Apr, Acquired hypothyroidism E03.9 [place] [id number] [place] [address] 94450- 4839 Apr, Acquired hypothyroidism E03.9 [place] [id number] [place] [address] 91057- 5858 Apr, [place] [id number] [place] [address] 35546- 9669 Apr, [facility] [id number] [place] [address] 02705- 8814 Apr, Acquired hypothyroidism E03.9 ; Morbid (severe) obesity due to excess calories E66.01 ; Body mass index (BMI) 70 or greater, adult Z68.45 ; Restless legs syndrome G25.81 ; Essential hypertension I10 and Lymphedema I89.0 [place] [address] [address] 78[address] Feb, [place] [id number] [address]65 29 Jan, 2018 [facility] [id number] [place] [address] 07814- 1473 Jan, [facility] [id number] [place] [address] 93778- 2841 Jan, Acquired hypothyroidism E03.9 ; Morbid (severe) obesity due to excess calories E66.01 ; Body mass index (BMI) 70 or greater, adult Z68.45 ; Cellulitis of left anterior lower leg L03.116 ; Restless legs syndrome G25.81 ; Nocturnal hypoxia G47.34 and Dependence on supplemental oxygen Z99.81 [facility] [id number] [place] [address] 49628- 3173 Jan, [facility] [id number] [place] [address] 06878- 9099 Dec, [facility] [id number] [place] [address] 59996- 8437 Oct, [facility] [id number] [place] [address] 16702- 4644 Oct, [facility] [id number] [place] [address] 75461- 8400 Sep, [facility] [id number] [place] [address] 95965- 1427 Sep, [facility] [id number] [place] [address] 31389- 5345 Sep, Dental examination Z01.20 [facility] [address]005[address] [address] 12[address] Sep, Morbid obesity due to excess calories E66.01 ; Body mass index (BMI) of 70 or greater in adult Z68.45 ; Stasis dermatitis without varicosities I87.2 ; Lymphedema I89.0 ; Renal insufficiency N28.9 ; Acquired hypothyroidism E03.9 ; Cellulitis L03.90 ; Bronchitis J40 and BMI 40.0-44.9, adult Z68.41 [facility] [address]005[address] [address] Aug, [facility] [address] [id number] Aug, Dental examination Z01.20 [facility] [address] [address] 6[address] Aug, [facility] [id number] [place] [address] 24689- 9582 Jul, [facility] [address] [address] Jul, [facility] [id number] [place] [address] 63623- 3985 18 Jul, 2017 [facility] [id number] [place] [address] 90110- 0907 Jul, [facility] [id number] [place] [address] 96635- 5468 Jul, [facility] [id number] [place] [address] 76918- 0977 Jun, [facility] [address] [address] Jun, Dependence on nocturnal oxygen therapy Z99.81 ; Morbid obesity due to excess calories E66.01 and Bronchitis J40 [facility] [address] [address] 6[address] Jun, Restless legs syndrome G25.81 [facility] [address] [address] 6[address] Jun, [facility] [id number] [place] [address] 95495- 3854 May, [facility] [address] [id number] [id number] Apr, [facility] [id number] [address]- 6304 Apr, [facility] [id number] [place] [address] 50574- 7084 Apr, Essential hypertension I10 [facility] [address] [address]- 7890 Apr, [place] [id number] [place] [address] 59513- 4376 Apr, Chronic pain syndrome G89.4 and Urge incontinence of urine N39.41 [place] [id number] [place] [address] 86954- 5903 March, Acquired hypothyroidism E03.9 [place] [id number] [place] [address] 68959- 5947 March, [place] [id number] [place] [address] 75671- 4277 March, [place] [address] [address] 0[address] March, Chronic pain syndrome G89.4 ; Essential [...] extremity L03.116 and Screening breast examination Z12.39 [place] [address] [address]- 5[address] March, [place] [id number] [place] [address] 38369- 9908 Feb, [facility] [id number] [place] [address] 24174- 2774 Feb, [place] [id number] [place] [address] 32337- 4482 Feb, Chronic pain syndrome G89.4 [facility] [address] [address] Feb, Right foot pain M79.671 and Right foot sprain, initial encounter S93.601A [facility] [id number] [place] [address] 46964- 3277 Jan, [facility] [id number] [place] [address] 05768- 1028 Jan, [facility] [id number] [place] [address] 12427- 5319 Jan, Chronic pain syndrome G89.4 [facility] [id number] [place] [address] 31738- 5903 Jan, [facility] [id number] [place] [address] 15029- 1710 Dec, [facility] [id number] [place] [address] 55450- 8898 Dec, [facility] [id number] [place] [address] 11542- 4290 Dec, Pain in right knee M25.561 ; Pain in left knee M25.562 ; Essential hypertension I10 ; Chronic stasis dermatitis I83.10 ; Restless legs syndrome G25.81 ; Acquired hypothyroidism E03.9 ; Dependence on nocturnal oxygen therapy Z99.81 ; Mixed hyperlipidemia E78.2 ; Lymphedema I89.0 ; Chronic pain syndrome G89.4 ; Gastroesophageal reflux disease without esophagitis K21.9 and Urge incontinence of urine N39.41 [facility] [id number] [place] [address] 03971- 9077 Nov, Mixed hyperlipidemia E78.2 [facility] [id number] [place] [address] 37282- 5998 Nov, [facility] [id number] [place] [address] 50701- 0346 Nov, [facility] [address] [id number] [address]- 8561 Nov, [facility] [id number] [place] [address] Nov, Stasis ulcer, left I83.029 [facility] [address] [facility] [id number] [place] [address]- 0209 Nov, [facility] [address] [facility] [id number] [address]- 4013 Oct, [facility] [address] [id number] [place] [address]- 6813 Oct, [facility] [address] [address]- 2895 Oct, [facility] [address] [address]- 4626 Sep, [facility] [address] [address]- 2270 Sep, [facility] [address] [id number] [id number] Sep, [facility] [address] [address]- 0937 Aug, [facility] [address] [id number] [address]- 6764 Jul, [facility] [address] [address]- 5313 Jul, [facility] [address] [facility] [id number] [place] [address]- 3763 Jul, [facility] [address] [address]- 3319 21 Jul, 2016 [facility] [address] [id number] [address]- 1904 14 Jul, 2016 Chest pain, unspecified type R07.9 ; Dyspnea on exertion R06.09 ; Essential hypertension I10 ; Hyperlipidemia, unspecified hyperlipidemia type E78.5 ; Left bundle branch block I44.7 and Hypothyroidism, unspecified type E03.9 [facility] [address] [address] Jun, Fever, unspecified fever cause R50.9 ; Headache, unspecified headache type R51 ; SOB (shortness of breath) R06.02 and Strep pharyngitis J02.0 [place] [address] 64141- 5168 Jun, [place] [address] 901986- 6043 Jun, [place] [address] 20338- 5016 Jun, Essential hypertension I10 ; Mixed hyperlipidemia E78.2 and Acquired hypothyroidism E03.9 [place] [address] 70899- 4403 Jun, Edema of both legs R60.0 ; Hypoxia R09.02 and Essential hypertension I10 [place] [address] 76193- 6164 Jun, [place] [address] 35113- 5510 Jun, Edema of both legs R60.0 ; Hypoxia R09.02 and Essential hypertension I10 [place] [address] 02047- 5963 Jun, Essential hypertension I10 ; Dependence on supplemental oxygen Z99.81 and Edema of both legs R60.0 [place] [address] 73981- 0672 May, Lumbar pain M54.5 ; Essential hypertension I10 ; Edema of both legs R60.0 ; Stasis dermatitis without varicosities I87.2 and Left knee pain M25.562 [place] [address] [place] [address]- 1367 May, [facility] [address] [address]- 3053 May, [facility] [address] [address]- 4037 May, [facility] [address] [address]- 0569 Apr, [facility] [address] [address]- 5142 Apr, [facility] [id number] [place] [address] 02642- 4116 March, [facility] [address] [address]- 4585 March, Lymphedema I89.0 ; Morbid obesity due to excess calories E66.01 ; Alteration in mobility due to weakness R53.1 and Hypoxia R09.02 [facility] [address] [address]- 2497 March, Abdominal wall mass R19.00 [facility] [address] [address]- 8700 March, [facility] [address] [address]- 8652 March, Abdominal wall mass R19.00 ; Lower abdominal pain R10.30 ; Alteration in mobility due to weakness R53.1 ; Hypoxia R09.02 and Lymphedema I89.0 [facility] [address] [address]- 8056 Feb, [facility] [address] [address]- 8814 Feb, Acquired hypothyroidism E03.9 ; Dependence on machine for supplemental oxygen V46.2 ; Restless legs syndrome G25.81 ; Essential hypertension I10 ; Renal insufficiency N28.9 ; Chronic stasis dermatitis I83.10 ; Mixed hyperlipidemia E78.2 ; Other chronic pain 338.29 and Cellulitis of left lower extremity L03.116 [place] [address] 17215- 0530 Feb, [facility] [address] 07186- 0251 Feb, [facility] [address] 23397 -4078 Feb, Shortness of breath R06.02 and Bronchitis J40 [place] [address] 84991- 9681 Jan, Dependence on supplemental oxygen Z99.81 [place] [address] 01536- 1957 Jan, [place] [address] 73707- 8983 Dec, [place] [address] 51333- 0745 Dec, [place] [address] 16712- 4404 Nov, Osteoarthritis of knees, bilateral M17.0 [place] [address] 54504- 8089 Nov, Dependence on machine for supplemental oxygen V46.2 ; Nocturnal hypoxia G47.34 and Urgency of urination R39.15 [place] [address] 46367- 9371 Nov, [place] [address] 95536- 4151 14 Oct, 2015 Pain in right knee M25.561 and Pain in left knee M25.562 [place] [id number] [place] [address] 50206- 5080 02 Oct, 2015 Acquired hypothyroidism E03.9 ; Renal insufficiency N28.9 and Chronic stasis dermatitis I83.10 [place] [id number] [place] [address] 35086- 7179 Oct, [place] [address] 85043- 0838 Sep, Cellulitis L03.90 ; Left knee pain M25.562 ; Essential hypertension I10 ; Lymphedema I89.0 ; Lumbar pain M54.5 ; Morbid obesity due to excess calories E66.01 and Renal insufficiency N28.9 [place] [address] 05755- 3461 Sep, Cellulitis L03.90 and Lymphedema I89.0 [place] [address] 48682- 8793 Sep, [place] [address] 65209- 4702 Sep, [place] [address] 57574- 2141 Sep, Left knee pain M25.562 ; Lumbar pain M54.5 ; Restless legs syndrome G25.81 ; Acquired hypothyroidism E03.9 and Essential hypertension I10 [place] [id number] [place] [address] 35902- 0461 Jul, [place] [id number] [place] [address] 31923- 9173 Jun, [place] [address] 06414- 7132 May, [place] [address] 82880- 7461 May, [place] [address] 34049- 8574 May, Hypertension 997.91 ; Restless legs syndrome [RLS] 333.94 ; Unspecified venous (peripheral) insufficiency 459.81 ; Unspecified hypothyroidism 244.9 and Other chronic pain 338.29 [facility] [address] [address]- 6526 24 Apr, 2015 [facility] [id number] [place] [address] 608910- 8040 Apr, [facility] [id number] [place] [address] 89421- 8107 Apr, Restless legs syndrome [RLS] 333.94 ; Shortness of breath 786.05 ; Unspecified venous (peripheral) insufficiency 459.81 ; Unspecified hypothyroidism 244.9 ; Obesity, unspecified 278.00 ; Other chronic pain 338.29 ; Hypertension 997.91 and Hyperlipidemia 272.4 [facility] [id number] [place] [address] 66983- 6631 Feb, [facility] [id number] [place] [address] 17728- 9034 Feb, [facility] [id number] [place] [address] 93764- 8001 Jan, [facility] [id number] [place] [address] 34313- 6678 Jan, [facility] [id number] [place] [address] 68356- 2555 Jan, [facility] [id number] [place] [address] 70849- 4179 Jan, [facility] [id number] [place] [address] 18475- 7676 Jan, [facility] [id number] [place] [address] 10796- 2858 Jan, [facility] [id number] [place] [address] 13651- 1652 Jan, [facility] [id number] [place] [address] 64288- 2959 Jan, [facility] [id number] [place] [address] 00316- 8986 Jan, [facility] [place] [facility] [address] [id number] [place] [address]- 3537 Jan, [facility] [place] [facility] [address] [id number] [place] [address]- 3623 Jan, [facility] [place] [facility] [address] [id number] [place] [address]- 1845 Jan, [facility] [place] [facility] [address] [id number] [place] [address]- 0563 Jan, [facility] [place] [facility] [address] [id number] [place] [address]- 5268 Jan, [facility] [place] [facility] [address] [id number] [place] [address]- 1483 Dec, [facility] [place] [facility] [address] [id number] [place] [address]- 8056 Dec, [facility] [place] [facility] [address] [id number] [place] [address]- 2687 Nov, [facility] [place] [facility] [address] [id number] [place] [address]- 6538 Nov, [facility] [place] [facility] [address] [id number] [place] [address]- 4525 Nov, [facility] [place] [facility] [address] [id number] [place] [address]- 1339 Nov, [facility] [place] [facility] [address] [id number] [place] [address]- 0806 Nov, [facility] [place] [facility] [address] [id number] [place] [address]- 4987 Nov, [facility] [place] [facility] [address] [id number] [place] [address]- 6953 Nov, [facility] [place] [facility] [address] [id number] [place] [address]- 4748 Nov, [facility] [place] [facility] [address] [id number] [place] [address]- 2834 Nov, [facility] [address] [id number] [place] [address]- 3720 Nov, [facility] [place] [facility] [address] [id number] [place] [address]- 8218 Nov, [facility] [address] [id number] [place] [address]- 7592 Nov, [facility] [place] [facility] [address] [id number] [place] [address]- 0956 Nov, [facility] [address] [id number] [place] [address]- 6615 Nov, [facility] [place] [facility] [address] [id number] [place] [address]- 5814 Nov, [facility] [place] [facility] [address] [id number] [place] [address]- 1290 Nov, [facility] [address] [id number] [place] [address]- 1903 Oct, [facility] [place] [facility] [address] [id number] [place] [address]- 5913 Oct, [facility] [address] [id number] [place] [address]- 7262 Sep, [facility] [place] [facility] [address] [id number] [place] [address]- 0729 Aug, [facility] [place] [facility] [address] [id number] [place] [address] Aug, [facility] [place] [facility] [address] [id number] [place] [address] Aug, [facility] [place] [facility] [address] [id number] [place] [address] Aug, [facility] [place] [facility] [address] [id number] [place] [id number] Aug, [facility] [place] [facility] [address] [id number] [place] [address] Aug, [facility] [place] [facility] [address] [id number] [place] [address] Aug, [facility] [place] [facility] [address] [id number] [place] [address] Aug, [facility] [place] [facility] [address] [id number] [place] [address] Aug, [facility] [place] [facility] [address] [id number] [place] [address] Aug, [facility] [place] [facility] [address] [id number] [place] [address] Jun, [facility] [place] [facility] [address] [id number] [place] [address] Jun, [facility] [place] [facility] [address] [id number] [place] [address] Jun, [facility] [place] [facility] [address] [id number] [place] [address] Jun, [facility] [place] [facility] [address] [id number] [place] [address] Jun, [facility] [place] [facility] [address] [id number] [place] [address] Jun, [facility] [place] [facility] [address] [id number] [place] [address] Jun, [facility] [place] [facility] [address] [id number] [place] [address] Jun, [facility] [place] [facility] [address] [id number] [place] [address] Jun, [facility] [place] [facility] [address] [id number] [place] [address] Jun, [facility] [place] [facility] [address] [id number] [place] [address] May, 2013 [facility] [place] [facility] [address] [id number] [place] [address] May, 2013 [facility] [place] [facility] [address] [id number] [place] [address] May, 2013 [facility] [place] [facility] [address] [id number] [place] [address] May, 2013 [facility] [place] [facility] [address] [id number] [place] [address] May, 2013 [facility] [place] [facility] [address] [id number] [place] [address] May, [facility] [place] [facility] [address] [id number] [place] [address] May, 2013 [facility] [place] [facility] [address] [id number] [place] [address] May, 2013 [facility] [place] [facility] [address] [id number] [place] [address] May, 2013 [facility] [place] [facility] [address] [id number] [place] [address] May, 2013 [facility] [place] [facility] [address] [id number] [place] [address] May, 2013 [facility] [place] [facility] [address] [id number] [place] [address] 6[address] May, 2013 [facility] [place] [facility] [address] [id number] [place] [address] 7427 May, 2013 [facility] [place] [facility] [address] [id number] [place] [address] 4727 May, 2013 [facility] [place] [facility] [address] [id number] [place] [address] 5055 May, 2013 [facility] [place] [facility] [address] [id number] [place] [address] 4918 May, 2013 [facility] [place] [facility] [address] [id number] [place] [address] 3508 May, [facility] [place] [facility] [address] [id number] [place] [address]- 2652 May, [facility] [place] [facility] [address] [id number] [place] [address] 9597 Apr, [facility] [place] [facility] [address] [id number] [place] [address]- 1091 Apr, [facility] [place] [facility] [address] [id number] [place] [address]- 6348 Apr, [facility] [place] [facility] [address] [id number] [place] [address]- 0244 Apr, [facility] [place] [facility] [address] [id number] [place] [address]- 5073 Apr, [facility] [place] [facility] [address] [id number] [place] [address] 8426 Apr, [facility] [place] [facility] [address] [id number] [place] [address]- 0532 Apr, [facility] [place] [facility] [address] [id number] [place] [address]- 9398 Apr, [facility] [place] [facility] [address] [id number] [place] [address]- 8692 Apr, [facility] [place] [facility] [address] [id number] [place] [address]- 4114 Apr, [facility] [place] [facility] [address] [id number] [place] [address]- 9277 Apr, [facility] [place] [facility] [address] [id number] [place] [address]- 6406 Apr, [facility] [place] [facility] [address] [id number] [place] [address]- 9554 March, [facility] [place] [facility] [address] [id number] [place] [address]- 6474 March, [facility] [place] [facility] [address] [id number] [place] [address]- 2694 March, [facility] [place] [facility] [address] [id number] [place] [address]- 3255 March, [facility] [place] [facility] [address] [id number] [place] [address] March, [facility] [place] [facility] [address] [id number] [place] [address]- 7165 March, [facility] [place] [facility] [address] [id number] [place] [address]- 6178 March, [facility] [place] [facility] [address] [id number] [place] [address]- 3313 March, [facility] [place] [facility] [address] [id number] [place] [address]- 4052 March, [facility] [place] [facility] [address] [id number] [place] [address]- 9257 March, [facility] [place] [facility] [address] [id number] [place] [address]- 1333 March, [facility] [place] [facility] [address] [id number] [place] [address]- 8473 Feb, [facility] [place] [facility] [address] [id number] [place] [address]- 1204 Feb, [facility] [place] [facility] [address] [id number] [place] [address]- 9065 Feb, [facility] [place] [facility] [address] [id number] [place] [address]- 7006 Feb, [facility] [place] [facility] [address] [id number] [place] [address]- 2460 Feb, [facility] [place] [facility] [address] [id number] [place] [address]- 3337 Feb, [facility] [place] [facility] [address] [id number] [place] [address]- 0564 Feb, [facility] [place] [facility] [address] [id number] [place] [address]- 9439 Feb, [facility] [place] [facility] [address] [id number] [place] [address]- 7857 Feb, [facility] [place] [facility] [address] [id number] [place] [address]- 0125 Feb, [facility] [place] [facility] [address] [id number] [place] [address]- 5772 Feb, [facility] [place] [facility] [address] [id number] [place] [address]- 4069 Feb, [facility] [place] [facility] [address] [id number] [place] [address]- 2124 Feb, [facility] [place] [facility] [address] [id number] [place] [address]- 1152 Feb, [facility] [place] [facility] [address] [id number] [place] [address]- 3256 Feb, [facility] [place] [facility] [address] [id number] [place] [address]- 2367 Feb, [facility] [place] [facility] [address] [id number] [place] [address] 1890 Feb, [facility] [place] [facility] [address] [id number] [place] [address]- 3682 Feb, [facility] [place] [facility] [address] [id number] [place] [address]- 3666 Feb, [facility] [place] [facility] [address] [id number] [place] [address]- 5820 Feb, [facility] [place] [facility] [address] [id number] [place] [address]- 7526 Jan, [facility] [place] [facility] [address] [id number] [place] [address]- 6721 Jan, [facility] [place] [facility] [address] [id number] [place] [address]- 6545 Jan, [facility] [place] [facility] [address] [id number] [place] [address]- 6784 Jan, [facility] [place] [facility] [address] [id number] [place] [address]- 1810 Jan, [facility] [place] [facility] [address] [id number] [place] [address]- 5127 Jan, [facility] [place] [facility] [address] [id number] [place] [address]- 2630 Jan, [facility] [place] [facility] [address] [id number] [place] [address]- 6459 18 Jan, 2014 [facility] [place] [facility] [address] [id number] [place] [address]- 1436 Jan, [facility] [place] [facility] [address] [id number] [place] [address]- 9583 14 Jan, 2014 [facility] [place] [facility] [address] [id number] [place] [address]- 5977 Jan, [facility] [place] [facility] [address] [id number] [place] [address]- 5332 Jan, [facility] [place] [facility] [address] [id number] [place] [address]- 7557 Jan, [facility] [place] [facility] [address] [id number] [place] [address]- 1445 Jan, [facility] [place] [facility] [address] [id number] [place] [address]- 1568 Dec, [facility] [place] [facility] [address] [id number] [place] [address]- 7103 Dec, [facility] [place] [facility] [address] [id number] [place] [address]- 4449 Dec, [facility] [place] [facility] [address] [id number] [place] [address]- 5122 Dec, [facility] [address] [id number] [place] [address]- 4456 Dec, [facility] [address] [id number] [place] [address]- 8586 Dec, [facility] [address] [id number] [place] [address]- 2956 Dec, [facility] [place] [facility] [address] [id number] [place] [address] 2543 Dec, [facility] [address] [id number] [place] [address]- 9586 Dec, [facility] [address] [id number] [place] [address]- 5250 Nov, [facility] [address] [id number] [place] [address]- 4680 Nov, [facility] [address] [id number] [place] [address]- 3683 Nov, [facility] [address] [id number] [place] [address]- 3522 Nov, [facility] [address] [id number] [place] [address]- 6230 Oct, [facility] [place] [facility] [address] [id number] [place] [address] 2546 Oct, [facility] [place] [facility] [address] [id number] [place] [address]- 2543 Oct, [facility] [place] [facility] [address] [id number] [place] [address]- 8036 Oct, [facility] [place] [facility] [address] [id number] [place] [address]- 2548 Oct, [facility] [place] [facility] [address] [id number] [place] [address]- 4162 Oct, [facility] [place] [facility] [address] [id number] [place] [address]- 2642 23 Oct, 2013 [facility] [address] [id number] [place] [address]- 2562 23 Oct, 2013 [facility] [address] [id number] [place] [address]- 8789 20 Oct, 2013 [facility] [place] [facility] [address] [id number] [place] [address]- 8184 19 Oct, 2013 [facility] [address] [id number] [place] [address]- 4773 19 Oct, 2013 [facility] [address] [id number] [place] [address]- 8632 18 Oct, 2013 [facility] [address] [id number] [place] [address]- 8661 18 Oct, 2013 [facility] [address] [id number] [place] [address]- 1828 17 Oct, 2013 [facility] [address] [id number] [place] [address]- 0620 17 Oct, 2013 [facility] [address] [id number] [place] [address]- 3471 17 Oct, 2013 [facility] [place] [facility] [address] [id number] [place] [address]- 6026 17 Oct, 2013 [facility] [place] [facility] [address] [id number] [place] [address]- 7965 17 Oct, 2013 [facility] [place] [facility] [address] [id number] [place] [address] 17 Oct, 2013 [facility] [place] [facility] [address] [id number] [place] [address]- 8017 11 Oct, 2013 [facility] [place] [facility] [address] [id number] [place] [address]- 0278 11 Oct, 2013 [facility] [place] [facility] [address] [id number] [place] [address]- 4779 Sep, [facility] [place] [facility] [address] [id number] [place] [address]- 4697 Sep, [facility] [place] [facility] [address] [id number] [place] [address]- 5453 Sep, [facility] [place] [facility] [address] [id number] [place] [address]- 1937 Sep, [facility] [place] [facility] [address] [id number] [place] [address]- 5040 18 Sep, 2013 [facility] [place] [facility] [address] [id number] [place] [address]- 3471 Sep, [facility] [place] [facility] [address] [id number] [place] [address]- 0575 Sep, [facility] [place] [facility] [address] [id number] [place] [address]- 9872 Sep, [facility] [place] [facility] [address] [id number] [place] [address]- 7189 Sep, [facility] [place] [facility] [address] [id number] [place] [address]- 3689 Sep, [facility] [place] [facility] [address] [id number] [place] [address]- 8259 Sep, [facility] [place] [facility] [address] [id number] [place] [address]- 2908 Sep, [facility] [place] [facility] [address] [id number] [place] [address]- 1517 Aug, [facility] [place] [facility] [address] [id number] [place] [address]- 8589 Aug, [facility] [place] [facility] [address] [id number] [place] [address]- 5420 Aug, [facility] [place] [facility] [address] [id number] [place] [address]- 8630 Aug, [facility] [place] [facility] [address] [id number] [place] [address]- 9569 23 Aug, 2012 [facility] [place] [facility] [address] [id number] [place] [address]- 5933 23 Aug, 2012 [facility] [place] [facility] [address] [id number] [place] [address]- 5635 Aug, 2012 [facility] [place] [facility] [address] [id number] [place] [address]- 0222 Aug, 2012 [facility] [place] [facility] [address] [id number] [place] [address]- 2847 16 Aug, 2012 [facility] [place] [facility] [address] [id number] [place] [address]- 6698 16 Aug, 2012 [facility] [place] [facility] [address] [id number] [place] [address]- 4903 10 Aug, 2012 [facility] [place] [facility] [address] [id number] [place] [address]- 9231 10 Aug, 2012 [facility] [place] [facility] [address] [id number] [place] [address]- 9525 08 Aug, 2013 [facility] [place] [facility] [address] [id number] [place] [address]- 6785 07 Aug, 2013 [facility] [place] [facility] [address] [id number] [place] [address]- 9160 04 Aug, 2013 [facility] [place] [facility] [address] [id number] [place] [address]- 5188 Aug, [facility] [place] [facility] [address] [id number] [place] [address]- 9587 Aug, [facility] [place] [facility] [address] [id number] [place] [address]- 6427 Jul, [facility] [place] [facility] [address] [id number] [place] [address] 2546 Jun, [facility] [place] [facility] [address] [id number] [place] [address]- 1144 Jun, [facility] [place] [facility] [address] [id number] [place] [address]- 5630 May, [facility] [place] [facility] [address] [id number] [place] [address]- 7429 May, [facility] [place] [facility] [address] [id number] [place] [address]- 7839 Apr, [facility] [place] [facility] [address] [id number] [place] [address]- 3515 Apr, [facility] [place] [facility] [address] [id number] [place] [address]- 5823 Apr, [facility] [place] [facility] [address] [id number] [place] [address]- 5240 Apr, [facility] [place] [facility] [address] [id number] [place] [address]- 9279 Apr, [facility] [place] [facility] [address] [id number] [place] [address]- 6648 Apr, [facility] [place] [facility] [address] [id number] [place] [address]- 5169 Apr, [facility] [place] [facility] [address] [id number] [place] [address]- 3302 Apr, [facility] [place] [facility] [address] [id number] [place] [address]- 8608 Apr, [facility] [place] [facility] [address] [id number] [place] [address]- 9356 Apr, [facility] [place] [facility] [address] [id number] [place] [address]- 7500 Apr, [facility] [place] [facility] [address] [id number] [place] [address]- 1874 March, [facility] [place] [facility] [address] [id number] [place] [address]- 1167 March, [facility] [place] [facility] [address] [id number] [place] [address]- 4155 March, [facility] [address] [id number] [place] [address]- 5274 March, [facility] [address] [id number] [place] [address]- 9003 March, [facility] [address] [id number] [place] [address]- 4568 Feb, [facility] [address] [id number] [place] [address]- 3997 Feb, [facility] [address] [id number] [place] [address]- 5725 Jan, [facility] [address] [id number] [place] [address]- 8653 Jan, [facility] [address] [id number] [place] [address]- 4724 Jan, [facility] [address] [id number] [place] [address]- 6827 Jan, [facility] [address] [id number] [place] [address]- 9166 Jan, [facility] [address] [id number] [place] [address]- 1708 Dec, [facility] [address] [id number] [place] [address]- 9286 Dec, [facility] [address] [id number] [place] [address]- 6115 Nov, [facility] [place] [facility] [address] [id number] [place] [address]- 0440 Nov, [facility] [place] [facility] [address] [id number] [place] [address]- 5661 Nov, [facility] [address] [id number] [place] [address]- 7885 16 Nov, 2012 [facility] [place] [facility] [address] [id number] [place] [address]- 6330 15 Nov, 2012 [facility] [address] [id number] [place] [address]- 0432 14 Nov, 2012 [facility] [address] [id number] [place] [address]- 5740 14 Nov, 2012 [facility] [address] [id number] [place] [address]- 1419 Nov, [facility] [address] [id number] [place] [address]- 1067 Nov, [facility] [address] [id number] [place] [address]- 6340 Nov, [facility] [address] [id number] [place] [address]- 3049 Nov, [facility] [address] [id number] [place] [address]- 6060 Oct, [facility] [address] [id number] [place] [address]- 3696 Oct, [facility] [address] [id number] [place] [address]- 6508 Sep, [facility] [address] [id number] [place] [address]- 0413 Sep, [facility] [address] [id number] [place] [address]- 4049 Sep, [facility] [address] [id number] [place] [address]- 3928 Sep, [facility] [place] [facility] [address] [id number] [place] [address]- 9992 Sep, [facility] [place] [facility] [address] [id number] [place] [address]- 6104 Sep, [facility] [address] [id number] [place] [address]- 4171 Sep, [facility] [place] [facility] [address] [id number] [place] [address]- 1339 Sep, [facility] [place] [facility] [address] [id number] [place] [address]- 5051 Sep, [facility] [place] [facility] [address] [id number] [place] [address]- 6536 Sep, [facility] [place] [facility] [address] [id number] [place] [address]- 6105 Sep, [facility] [place] [facility] [address] [id number] [place] [address]- 0601 Sep, [facility] [place] [facility] [address] [id number] [place] [address]- 2829 Sep, [facility] [place] [facility] [address] [id number] [place] [address]- 4124 Sep, [facility] [place] [facility] [address] [id number] [place] [address]- 5553 Aug, [facility] [place] [facility] [address] [id number] [place] [address]- 3641 Aug, [facility] [place] [facility] [address] [id number] [place] [address]- 5774 Aug, [facility] [place] [facility] [address] [id number] [place] [address]- 3163 Aug, [facility] [place] [facility] [address] [id number] [place] [address]- 8226 Aug, [facility] [place] [facility] [address] [id number] [place] [address]- 8353 Aug, [facility] [place] [facility] [address] [id number] [place] [address]- 2228 Aug, [facility] [place] [facility] [address] [id number] [place] [address]- 2606 Aug, [facility] [place] [facility] [id number] [place] [address]- 3773 Aug, [facility] [address] [facility] [id number] [place] [address]- 7844 Aug, [facility] [address] [facility] [id number] [place] [address]- 1830 Aug, [facility] [id number] [address] Aug, [facility] [address] [facility] [id number] [place] [address] Aug, [facility] [id number] [place] [id number] Aug, [facility] [id number] [address] Aug, [facility] [id number] [place] [address] Aug, [facility] [id number] [address] Aug, [facility] [id number] [address] Jul, [facility] [id number] [address] Jun, [facility] [id number] [address] Aug, [facility] [id number] [address] Aug, [facility] [id number] [address] Aug, IMMUNIZATIONS No Known Immunizations SOCIAL HISTORY Never Assessed REASON FOR VISIT Needs info faxed PLAN OF CARE VITAL SIGNS MEDICATIONS Unknown [...] surgery 08/16/2016 Hospitalization History Chest pain, CAD, HTN-[facility] 05/14/17 Hospitalization History chest pain, edema-[facility] 05/04/18
--- OUTSIDE RECORDS SUMMARY | 2018-09-08 15:06 | XMS REPORT ---
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 Active 65402337 Problem Urge incontinence of urine N39.41 Active 36986371 Problem Dependence on supplemental oxygen Z99.81 Active 375298684502 Problem Other chronic pain G89.29 Active 55824543 Problem Restless legs syndrome G25.81 Active 301317983 Problem Chronic systolic heart failure I50.22 Active 943496543 Problem Chronic pain syndrome G89.4 Active 491153065 Problem Gastroesophageal reflux disease without esophagitis K21.9 Active 387789947 Problem Morbid obesity E66.01 Active 293235111 Problem Morbid (severe) obesity due to excess calories E66.01 Active 588443413 Problem Lumbar pain M54.5 Active 330463685 Problem Chronic stasis dermatitis I83.10 Active 27405796 Problem Essential hypertension I10 Active 41955591 Problem Acquired hypothyroidism E03.9 Active 139070031 Problem Nocturnal hypoxia G47.34 Active 898244939 Problem Mixed hyperlipidemia E78.2 Active 928020480 Problem Renal insufficiency N28.9 Active 089374698 Problem Edema of both legs R60.0 Active 545318740 Problem Lymphedema I89.0 Active 228245145 Problem Stasis dermatitis without varicosities I87.2 Active 35293507 ALLERGIES No Information ENCOUNTERS Encounter Location Date Diagnosis [facility] [address] [facility] [id number], [place] [address] Jul, [facility] [address] [facility] [id number], [place] [address] Jun, Cellulitis of right lower leg L03.115 [facility] [address], [place] [address] 7702 Jun, [facility] [id number] [place] [address] 23649- 3091 May, [facility] [address] [place] [address] 58864- 6146 May, [facility] [id number] [place] [address] 57944- 4330 Apr, Essential hypertension I10 ; Chronic systolic heart failure I50.22 ; Pain in right knee M25.561 ; Pain in left knee M25.562 ; Other chronic pain G89.29 ; Mixed hyperlipidemia E78.2 ; Morbid obesity E66.01 and Body mass index (BMI) 70 or greater, adult Z68.45 [facility] [id number] [place] [address] 26091- 6370 Apr, [facility] [id number] [place] [address] 44215- 9941 Apr, Acquired hypothyroidism E03.9 [facility] [id number] [place] [address] 18319- 7376 Apr, Acquired hypothyroidism E03.9 [facility] [id number] [place] [address] 06911- 6234 Apr, [facility] [id number] [place] [address] 47409- 6529 Apr, [facility] [id number] [place] [address] 37642- 3141 Apr, Acquired hypothyroidism E03.9 ; Morbid (severe) obesity due to excess calories E66.01 ; Body mass index (BMI) 70 or greater, adult Z68.45 ; Restless legs syndrome G25.81 ; Essential hypertension I10 and Lymphedema I89.0 [facility] [address], [place] [address] 0875 Feb, [facility] [address] [id number], [place] [address] 3665 29 Jan, 2018 [facility] [id number] [place] [address] 53582- 3630 Jan, [facility] [id number] [place] [address] 69940- 3432 Jan, Acquired hypothyroidism E03.9 ; Morbid (severe) obesity due to excess calories E66.01 ; Body mass index (BMI) 70 or greater, adult Z68.45 ; Cellulitis of left anterior lower leg L03.116 ; Restless legs syndrome G25.81 ; Nocturnal hypoxia G47.34 and Dependence on supplemental oxygen Z99.81 [facility] [id number] [place] [address] 44424- 6736 Jan, [facility] [id number] [place] [address] 88842- 4479 Dec, [facility] [id number] [place] [address] 45364- 9343 Oct, [facility] [id number] [place] [address] 05751- 8722 Oct, [facility] [id number] [place] [address] 35037- 1902 Sep, [facility] [id number] [place] [address] 86069- 4499 Sep, [facility] [id number] [place] [address] 18229- 7588 Sep, Dental examination Z01.20 [facility] [address], [place] [address] 9184 Sep, Morbid obesity due to excess calories E66.01 ; Body mass index (BMI) of 70 or greater in adult Z68.45 ; Stasis dermatitis without varicosities I87.2 ; Lymphedema I89.0 ; Renal insufficiency N28.9 ; Acquired hypothyroidism E03.9 ; Cellulitis L03.90 ; Bronchitis J40 and BMI 40.0-44.9, adult Z68.41 [facility] [address], [place] [address] 8295 Aug, [facility] [address] [address] Aug, Dental examination Z01.20 [facility] [address], [place] [address] 1220 Aug, [facility] [id number] [place] [address] 62569- 2106 Jul, [facility] [address], [place] [address]- 4896 Jul, [facility] [id number] [place] [address] 30867- 2596 18 Jul, 2017 [facility] [id number] [place] [address] 74307- 2730 Jul, [facility] [id number] [place] [address] 30156- 3242 Jul, [facility] [id number] [place] [address] 20088- 8446 Jun, [facility] [address], [place] [address] 7807 Jun, Dependence on nocturnal oxygen therapy Z99.81 ; Morbid obesity due to excess calories E66.01 and Bronchitis J40 [facility] [address], [place] [address]- 2736 Jun, Restless legs syndrome G25.81 [facility] [address], [place] [address]- 3444 Jun, [facility] [id number] [place] [address] 86831- 3438 May, [facility] [address] [id number] [address] Apr, [facility] [address] [id number], [place] [address]- 3630 Apr, [facility] [id number] [place] [address] 62010- 5947 Apr, Essential hypertension I10 [facility] [address], [place] [address]- 9544 Apr, [facility] [id number] [place] [address] 22334- 6835 Apr, Chronic pain syndrome G89.4 and Urge incontinence of urine N39.41 [facility] [id number] [place] [address] 49106- 5080 March, Acquired hypothyroidism E03.9 [facility] [id number] [place] [address] 32963- 9621 March, [facility] [id number] [place] [address] 63057- 0632 March, [facility] [address], [place] [address]- 9264 March, Chronic pain syndrome G89.4 ; Essential [...] extremity L03.116 and Screening breast examination Z12.39 [facility] [address], [place] [address]- 5649 March, [facility] [id number] [place] [address] 76902- 9404 Feb, [facility] [id number] [place] [address] 82236- 8175 Feb, [facility] [id number] [place] [address] 97664- 4956 Feb, Chronic pain syndrome G89.4 [facility] [address], [place] [address] Feb, Right foot pain M79.671 and Right foot sprain, initial encounter S93.601A [facility] [id number] [place] [address] 38685- 1567 Jan, [facility] [id number] [place] [address] 13257- 2578 Jan, [facility] [id number] [place] [address] 19927- 5051 Jan, Chronic pain syndrome G89.4 [facility] [id number] [place] [address] 25266- 5090 Jan, [facility] [id number] [place] [address] 01545- 5670 Dec, [facility] [id number] [place] [address] 54396- 3897 Dec, [facility] [id number] [place] [address] 42847- 7281 Dec, Pain in right knee M25.561 ; Pain in left knee M25.562 ; Essential hypertension I10 ; Chronic stasis dermatitis I83.10 ; Restless legs syndrome G25.81 ; Acquired hypothyroidism E03.9 ; Dependence on nocturnal oxygen therapy Z99.81 ; Mixed hyperlipidemia E78.2 ; Lymphedema I89.0 ; Chronic pain syndrome G89.4 ; Gastroesophageal reflux disease without esophagitis K21.9 and Urge incontinence of urine N39.41 [facility] [id number] [place] [address] 61860- 9510 Nov, Mixed hyperlipidemia E78.2 [facility] [id number] [place] [address] 13816- 7467 Nov, [facility] [id number] [place] [address] 31579- 3292 Nov, [facility] [address] [id number], [place] [address]- 4562 Nov, [facility] [address] [place] [address] Nov, Stasis ulcer, left I83.029 [facility] [address] [facility] [id number] [place] [address]- 0326 Nov, [facility] [address] [facility] [id number], [place] [address]- 7986 Oct, [facility] [address] [id number] [place] [address]- 2200 Oct, [facility] [address], [place] [address]- 4955 Oct, [facility] [address], [place] [address]- 5957 Sep, [facility] [address], [place] [address]- 0735 Sep, [facility] [address] [id number] [address] Sep, [facility] [address], [place] [address]- 0432 Aug, [facility] [address] [id number], [place] [address]- 3142 Jul, [facility] [address], [place] [address]- 1471 Jul, [facility] [address] [facility] [id number], [place] [address]- 6312 Jul, [facility] [address], [place] [address]- 2954 21 Jul, 2016 [facility] [address] [id number], [place] [address]- 0936 14 Jul, 2016 Chest pain, unspecified type R07.9 ; Dyspnea on exertion R06.09 ; Essential hypertension I10 ; Hyperlipidemia, unspecified hyperlipidemia type E78.5 ; Left bundle branch block I44.7 and Hypothyroidism, unspecified type E03.9 [facility] [address] [address] Jun, Fever, unspecified fever cause R50.9 ; Headache, unspecified headache type R51 ; SOB (shortness of breath) R06.02 and Strep pharyngitis J02.0 [facility] [address] 26504- 1546 Jun, [facility] [address] 674254- 0067 Jun, [facility] [address] 20331- 1028 Jun, Essential hypertension I10 ; Mixed hyperlipidemia E78.2 and Acquired hypothyroidism E03.9 [facility] [address] 58207- 0803 Jun, Edema of both legs R60.0 ; Hypoxia R09.02 and Essential hypertension I10 [facility] [address] 40080- 5793 Jun, [facility] [address] 67537- 1022 Jun, Edema of both legs R60.0 ; Hypoxia R09.02 and Essential hypertension I10 [facility] [address] 39169- 3400 Jun, Essential hypertension I10 ; Dependence on supplemental oxygen Z99.81 and Edema of both legs R60.0 [facility] [address] 74396- 2653 May, Lumbar pain M54.5 ; Essential hypertension I10 ; Edema of both legs R60.0 ; Stasis dermatitis without varicosities I87.2 and Left knee pain M25.562 [facility] [address] [place] [address]- 5997 May, [facility] [address], [place] [address]- 0393 May, [facility] [address], [place] [address]- 9584 May, [facility] [address], [place] [address]- 1287 Apr, [facility] [address], [place] [address]- 7307 Apr, [facility] [address] [place] [address] 91115- 5294 March, [facility] [address], [place] [address]- 2439 March, Lymphedema I89.0 ; Morbid obesity due to excess calories E66.01 ; Alteration in mobility due to weakness R53.1 and Hypoxia R09.02 [facility] [address], [place] [address]- 1768 March, Abdominal wall mass R19.00 [facility] [address], [place] [address]- 1078 March, [facility] [address], [place] [address]- 0090 March, Abdominal wall mass R19.00 ; Lower abdominal pain R10.30 ; Alteration in mobility due to weakness R53.1 ; Hypoxia R09.02 and Lymphedema I89.0 [facility] [address], [place] [address]- 2911 Feb, [facility] [address], [place] [address]- 4142 Feb, Acquired hypothyroidism E03.9 ; Dependence on machine for supplemental oxygen V46.2 ; Restless legs syndrome G25.81 ; Essential hypertension I10 ; Renal insufficiency N28.9 ; Chronic stasis dermatitis I83.10 ; Mixed hyperlipidemia E78.2 ; Other chronic pain 338.29 and Cellulitis of left lower extremity L03.116 [facility] [facility] [address] 93925- 5090 Feb, [facility] [address] 27977- 5634 Feb, [facility] [address] 37258 -6459 Feb, Shortness of breath R06.02 and Bronchitis J40 [facility] [address] 79356- 2906 Jan, Dependence on supplemental oxygen Z99.81 [facility] [address] 24252- 0160 Jan, [place] [address] 00280- 6719 Dec, [place] [address] 19900- 8767 Dec, [facility] [address] 49887- 8887 Nov, Osteoarthritis of knees, bilateral M17.0 [facility] [address] 37006- 7177 Nov, Dependence on machine for supplemental oxygen V46.2 ; Nocturnal hypoxia G47.34 and Urgency of urination R39.15 [facility] [address] 36951- 4893 Nov, [facility] [address] 73534- 6030 14 Oct, 2015 Pain in right knee M25.561 and Pain in left knee M25.562 [facility] [id number] [place] [address] 19027- 9626 02 Oct, 2015 Acquired hypothyroidism E03.9 ; Renal insufficiency N28.9 and Chronic stasis dermatitis I83.10 [facility] [id number] [place] [address] 60040- 7804 Oct, [facility] [address] 63354- 7674 Sep, Cellulitis L03.90 ; Left knee pain M25.562 ; Essential hypertension I10 ; Lymphedema I89.0 ; Lumbar pain M54.5 ; Morbid obesity due to excess calories E66.01 and Renal insufficiency N28.9 [place] [address] 35201- 9644 Sep, Cellulitis L03.90 and Lymphedema I89.0 [place] [address] 91799- 1949 Sep, [place] [place] [address] 42848- 8157 Sep, [place] [address] 87239- 4347 Sep, Left knee pain M25.562 ; Lumbar pain M54.5 ; Restless legs syndrome G25.81 ; Acquired hypothyroidism E03.9 and Essential hypertension I10 [place] [id number] [place] [address] 52127- 2769 Jul, [facility] [id number] [place] [address] 18618- 6387 Jun, [facility] [place] [address] 84039- 7580 May, [place] [address] 05422- 1253 May, [place] [address] 34017- 4168 May, Hypertension 997.91 ; Restless legs syndrome [RLS] 333.94 ; Unspecified venous (peripheral) insufficiency 459.81 ; Unspecified hypothyroidism 244.9 and Other chronic pain 338.29 [facility] [address], [place] [address]- 5332 24 Apr, 2015 [facility] [id number] [place] [address] 721774- 2708 Apr, [facility] [id number] [place] [address] 36199- 5314 Apr, Restless legs syndrome [RLS] 333.94 ; Shortness of breath 786.05 ; Unspecified venous (peripheral) insufficiency 459.81 ; Unspecified hypothyroidism 244.9 ; Obesity, unspecified 278.00 ; Other chronic pain 338.29 ; Hypertension 997.91 and Hyperlipidemia 272.4 [facility] [id number] [place] [address] 39777- 2572 Feb, [facility] [id number] [place] [address] 25983- 2098 Feb, [facility] [id number] [place] [address] 92471- 5361 Jan, [facility] [id number] [place] [address] 50149- 4218 Jan, [facility] [id number] [place] [address] 98047- 6773 Jan, [facility] [id number] [place] [address] 82762- 6030 Jan, [facility] [id number] [place] [address] 64849- 2466 Jan, [facility] [address] [place] [address] 00853- 7763 Jan, [facility] [id number] [place] [address] 86725- 5775 Jan, [facility] [id number] [place] [address] 12791- 7891 Jan, [facility] [id number] [place] [address] 24574- 0941 Jan, [facility] [place] [facility] [address] [id number] [place] [address]- 9479 Jan, [facility] [place] [facility] [address] [id number] [place] [address]- 3847 Jan, [facility] [place] [facility] [address] [id number] [place] [address]- 7231 Jan, [facility] [place] [facility] [address] [id number] [place] [address]- 4698 Jan, [facility] [place] [facility] [address] [id number] [place] [address]- 5951 Jan, [facility] [place] [facility] [address] [id number] [place] [address]- 0901 Dec, [facility] [place] [facility] [address] [id number] [place] [address]- 9006 Dec, [facility] [place] [facility] [address] [id number] [place] [address]- 1988 Nov, [facility] [place] [facility] [address] [id number] [place] [address]- 9360 Nov, [facility] [place] [facility] [address] [id number] [place] [address]- 1038 Nov, [facility] [place] [facility] [address] [id number] [place] [address]- 4224 Nov, [facility] [place] [facility] [address] [id number] [place] [address]- 8741 Nov, [facility] [place] [facility] [address] [id number] [place] [address]- 7001 Nov, [facility] [place] [facility] [address] [id number] [place] [address]- 0704 Nov, [facility] [place] [facility] [address] [id number] [place] [address]- 6504 Nov, [facility] [place] [facility] [address] [id number] [place] [address]- 9395 Nov, [facility] [address] [id number] [place] [address]- 1363 Nov, [facility] [place] [facility] [address] [id number] [place] [address]- 1960 Nov, [facility] [address] [id number] [place] [address]- 5043 Nov, [facility] [place] [facility] [address] [id number] [place] [address]- 8340 Nov, [facility] [address] [id number] [place] [address]- 4190 Nov, [facility] [place] [facility] [address] [id number] [place] [address]- 5278 Nov, [facility] [place] [facility] [address] [id number] [place] [address]- 8280 Nov, [facility] [address] [id number] [place] [address]- 9904 Oct, [facility] [place] [facility] [address] [id number] [place] [address]- 9232 Oct, [facility] [address] [id number] [place] [address]- 3953 Sep, [facility] [place] [facility] [address] [id number] [place] [address]- 1079 Aug, [facility] [place] [facility] [address] [id number] [place] [address]- 8944 Aug, [facility] [place] [facility] [address] [id number] [place] [address] Aug, [facility] [place] [facility] [address] [id number] [place] [address] Aug, [facility] [place] [facility] [address] [id number] [place] [id number] Aug, [facility] [place] [facility] [address] [id number] [place] [address] Aug, [facility] [place] [facility] [address] [id number] [place] [address] Aug, [facility] [place] [facility] [address] [id number] [place] [address] Aug, [facility] [place] [facility] [address] [id number] [place] [address] Aug, [facility] [place] [facility] [address] [id number] [place] [address] Aug, [facility] [place] [facility] [address] [id number] [place] [address] Jun, [facility] [place] [facility] [address] [id number] [place] [address] Jun, [facility] [place] [facility] [address] [id number] [place] [address] Jun, [facility] [place] [facility] [address] [id number] [place] [address] Jun, [facility] [place] [facility] [address] [id number] [place] [address] Jun, [facility] [place] [facility] [address] [id number] [place] [address] Jun, [facility] [place] [facility] [address] [id number], [place] [address] Jun, [facility] [place] [facility] [address] [id number] [place] [address] Jun, [facility] [place] [facility] [address] [id number] [place] [address] Jun, [facility] [place] [facility] [address] [id number] [place] [address] Jun, [facility] [place] [facility] [address] [id number] [place] [address] May, 2013 [facility] [place] [facility] [address] [id number] [place] [address] May, 2013 [facility] [place] [facility] [address] [id number] [place] [address] May, 2013 [facility] [place] [facility] [address] [id number] [place] [address] May, 2013 [facility] [place] [facility] [address] [id number] [place] [address] May, 2013 [facility] [place] [facility] [address] [id number] [place] [address] May, [facility] [place] [facility] [address] [id number] [place] [address] May, 2013 [facility] [place] [facility] [address] [id number] [place] [address] May, 2013 [facility] [place] [facility] [address] [id number] [place] [address] May, 2013 [facility] [place] [facility] [address] [id number] [place] [address] May, 2013 [facility] [place] [facility] [address] [id number] [place] [place] [address] May, 2013 [facility] [place] [facility] [address] [id number] [place] [address] May, 2013 [facility] [place] [facility] [address] [id number] [place] [address] 7679 May, 2013 [facility] [place] [facility] [address] [id number] [place] [address]- 6526 May, 2013 [facility] [place] [facility] [address] [id number] [place] [address]- 1013 May, 2013 [facility] [place] [facility] [address] [id number] [place] [address]- 7377 May, 2013 [facility] [place] [facility] [address] [id number] [place] [address]- 5941 May, [facility] [place] [facility] [address] [id number] [place] [address]- 6553 May, [facility] [place] [facility] [address] [id number] [place] [address]- 6886 Apr, [facility] [place] [facility] [address] [id number] [place] [address]- 9816 Apr, [facility] [place] [facility] [address] [id number] [place] [address]- 3083 Apr, [facility] [place] [facility] [address] [id number] [place] [address]- 6788 Apr, [facility] [place] [facility] [address] [id number] [place] [address]- 0421 Apr, [facility] [place] [facility] [address] [id number] [place] [address]- 1146 Apr, [facility] [place] [facility] [address] [id number] [place] [address]- 6884 Apr, [facility] [place] [facility] [address] [id number] [place] [address]- 8613 Apr, [facility] [place] [facility] [address] [id number] [place] [address]- 1781 Apr, [facility] [place] [facility] [address] [id number] [place] [address]- 5165 Apr, [facility] [place] [facility] [address] [id number] [place] [address]- 2869 Apr, [facility] [place] [facility] [address] [id number] [place] [address]- 1511 Apr, [facility] [place] [facility] [address] [id number] [place] [address]- 5674 March, [facility] [place] [facility] [address] [id number] [place] [address]- 1050 March, [facility] [place] [facility] [address] [id number] [place] [address]- 7652 March, [facility] [place] [facility] [address] [id number] [place] [address]- 4958 March, [facility] [place] [facility] [address] [id number] [place] [address] March, [facility] [place] [facility] [address] [id number] [place] [address]- 2288 March, [facility] [place] [facility] [address] [id number] [place] [address]- 2108 March, [facility] [place] [facility] [address] [id number] [place] [address]- 3390 March, [facility] [place] [facility] [address] [id number] [place] [address]- 7395 March, [facility] [place] [facility] [address] [id number] [place] [address]- 6409 March, [facility] [place] [facility] [address] [id number] [place] [address]- 7077 March, [facility] [place] [facility] [address] [id number] [place] [address]- 3405 Feb, [facility] [place] [facility] [address] [id number] [place] [address]- 7408 Feb, [facility] [place] [facility] [address] [id number], [place] [address] 6758 Feb, [facility] [place] [facility] [address] [id number] [place] [address]- 7780 Feb, [facility] [place] [facility] [address] [id number] [place] [address]- 1593 Feb, [facility] [place] [facility] [address] [id number] [place] [address]- 7737 Feb, [facility] [place] [facility] [address] [id number] [place] [address]- 5113 Feb, [facility] [place] [facility] [address] [id number] [place] [address]- 5049 Feb, [facility] [place] [facility] [address] [id number] [place] [address]- 1839 Feb, [facility] [place] [facility] [address] [id number] [place] [address]- 5231 Feb, [facility] [place] [facility] [address] [id number] [place] [address]- 8021 Feb, [facility] [place] [facility] [address] [id number] [place] [address]- 9850 Feb, [facility] [place] [facility] [address] [id number] [place] [address]- 6492 Feb, [facility] [place] [facility] [address] [id number] [place] [address]- 1924 Feb, [facility] [place] [facility] [address] [id number] [place] [address]- 3646 Feb, [facility] [place] [facility] [address] [id number] [place] [address]- 5717 Feb, [facility] [place] [facility] [address] [id number] [place] [address]- 8483 Feb, [facility] [place] [facility] [address] [id number] [place] [address]- 3244 Feb, [facility] [place] [facility] [address] [id number] [place] [address]- 1942 Feb, [facility] [place] [facility] [address] [id number] [place] [address]- 2147 Feb, [facility] [place] [facility] [address] [id number] [place] [address]- 6304 Jan, [facility] [place] [facility] [address] [id number] [place] [address]- 2271 Jan, [facility] [place] [facility] [address] [id number] [place] [address]- 2797 Jan, [facility] [place] [facility] [address] [id number] [place] [address]- 7441 Jan, [facility] [place] [facility] [address] [id number] [place] [address]- 6669 Jan, [facility] [place] [facility] [address] [id number] [place] [address]- 9806 Jan, [facility] [place] [facility] [address] [id number] [place] [address]- 5923 Jan, [facility] [place] [facility] [address] [id number] [place] [address]- 1501 18 Jan, 2014 [facility] [place] [facility] [address] [id number] [place] [address]- 3454 Jan, [facility] [place] [facility] [address] [id number] [place] [address]- 0076 14 Jan, 2014 [facility] [place] [facility] [address] [id number] [place] [address]- 2945 Jan, [facility] [place] [facility] [address] [id number] [place] [address]- 8881 Jan, [facility] [place] [facility] [address] [id number] [place] [address]- 1479 Jan, [facility] [place] [facility] [address] [id number] [place] [address]- 1869 Jan, [facility] [place] [facility] [address] [id number] [place] [address]- 7747 Dec, [facility] [place] [facility] [address] [id number] [place] [address]- 6671 Dec, [facility] [place] [facility] [address] [id number] [place] [address]- 6116 Dec, [facility] [place] [facility] [address] [id number] [place] [address]- 4643 Dec, [facility] [address] [id number] [place] [address]- 2656 Dec, [facility] [address] [id number] [place] [address]- 9816 Dec, [facility] [address] [id number] [place] [address]- 8136 Dec, [facility] [place] [facility] [address] [id number] [place] [address] 254 Dec, [facility] [address] [id number] [place] [address]- 7676 Dec, [facility] [address] [id number] [place] [address]- 3308 Nov, [facility] [address] [id number] [place] [address]- 8322 Nov, [facility] [address] [id number] [place] [address]- 3698 Nov, [facility] [address] [id number] [place] [address]- 5499 Nov, [facility] [address] [id number] [place] [address]- 9544 Oct, [facility] [place] [facility] [address] [id number] [place] [address] 2546 Oct, [facility] [place] [facility] [address] [id number] [place] [address]- 2548 Oct, [facility] [place] [facility] [address] [id number] [place] [address]- 5845 Oct, [facility] [place] [facility] [address] [id number] [place] [address]- 2547 Oct, [facility] [place] [facility] [address] [id number] [place] [address]- 9949 Oct, [facility] [place] [facility] [address] [id number] [place] [address]- 8682 23 Oct, 2013 [facility] [address] [id number] [place] [address]- 6175 23 Oct, 2013 [facility] [address] [id number] [place] [address]- 0769 20 Oct, 2013 [facility] [place] [facility] [address] [id number] [place] [address]- 2557 19 Oct, 2013 [facility] [address] [id number] [place] [address]- 4873 19 Oct, 2013 [facility] [address] [id number] [place] [address]- 4120 18 Oct, 2013 [facility] [address] [id number] [place] [address]- 6298 18 Oct, 2013 [facility] [address] [id number] [place] [address]- 1781 17 Oct, 2013 [facility] [address] [id number] [place] [address]- 9256 17 Oct, 2013 [facility] [address] [id number] [place] [address]- 3884 17 Oct, 2013 [facility] [place] [facility] [address] [id number] [place] [address]- 0398 17 Oct, 2013 [facility] [place] [facility] [address] [id number] [place] [address]- 6672 17 Oct, 2013 [facility] [place] [facility] [address] [id number] [place] [address]99 17 Oct, 2013 [facility] [place] [facility] [address] [id number] [place] [address]- 3034 11 Oct, 2013 [facility] [place] [facility] [address] [id number] [place] [address]- 8449 11 Oct, 2013 [facility] [place] [facility] [address] [id number], [place] [address]- 9308 Sep, [facility] [place] [facility] [address] [id number] [place] [address]- 5153 Sep, [facility] [place] [facility] [address] [id number], [place] [address]- 6335 Sep, [facility] [place] [facility] [address] [id number] [place] [address]- 3273 Sep, [facility] [place] [facility] [address] [id number], [place] [address]- 9010 18 Sep, 2013 [facility] [place] [facility] [address] [id number] [place] [address]- 5825 Sep, [facility] [place] [facility] [address] [id number] [place] [address]- 1826 Sep, [facility] [place] [facility] [address] [id number], [place] [address]- 0036 Sep, [facility] [place] [facility] [address] [id number] [place] [address]- 5902 Sep, [facility] [place] [facility] [address] [id number], [place] [address]- 6641 Sep, [facility] [place] [facility] [address] [id number], [place] [address]- 3041 Sep, [facility] [place] [facility] [address] [id number], [place] [address]- 0447 Sep, [facility] [place] [facility] [address] [id number], [place] [address]- 4941 Aug, [facility] [place] [facility] [address] [id number], [place] [address]- 6966 Aug, [facility] [place] [facility] [address] [id number], [place] [address]- 6706 Aug, [facility] [place] [facility] [address] [id number] [place] [address]- 3082 Aug, [facility] [place] [facility] [address] [id number] [place] [address]- 8219 23 Aug, 2012 [facility] [place] [facility] [address] [id number] [place] [address]- 5102 23 Aug, 2012 [facility] [place] [facility] [address] [id number] [place] [address]- 4942 Aug, 2012 [facility] [place] [facility] [address] [id number] [place] [address]- 7999 Aug, 2012 [facility] [place] [facility] [address] [id number] [place] [address]- 9098 16 Aug, 2012 [facility] [place] [facility] [address] [id number] [place] [address]- 8948 16 Aug, 2012 [facility] [place] [facility] [address] [id number] [place] [address]- 0728 10 Aug, 2012 [facility] [place] [facility] [address] [id number] [place] [address]- 4624 10 Aug, 2012 [facility] [place] [facility] [address] [id number] [place] [address]- 6467 08 Aug, 2013 [facility] [place] [facility] [address] [id number] [place] [address]- 5001 07 Aug, 2013 [facility] [place] [facility] [address] [id number] [place] [address]- 5636 04 Aug, 2013 [facility] [place] [facility] [address] [id number] [place] [address]- 6865 Aug, [facility] [place] [facility] [address] [id number] [place] [address]- 8691 Aug, [facility] [place] [facility] [address] [id number] [place] [address]- 9117 Jul, [facility] [place] [facility] [address] [id number] [place] [address] 2546 Jun, [facility] [place] [facility] [address] [id number] [place] [address]- 8248 Jun, [facility] [place] [facility] [address] [id number] [place] [address]- 2763 May, [facility] [place] [facility] [address] [id number] [place] [address]- 3180 May, [facility] [place] [facility] [address] [id number] [place] [address]- 5808 Apr, [facility] [place] [facility] [address] [id number] [place] [address]- 8690 Apr, [facility] [place] [facility] [address] [id number] [place] [address]- 1372 Apr, [facility] [place] [facility] [address] [id number] [place] [address]- 6572 Apr, [facility] [place] [facility] [address] [id number] [place] [address]- 6662 Apr, [facility] [place] [facility] [address] [id number] [place] [address]- 8506 Apr, [facility] [place] [facility] [address] [id number] [place] [address]- 8378 Apr, [facility] [place] [facility] [address] [id number] [place] [address]- 5562 Apr, [facility] [place] [facility] [address] [id number] [place] [address]- 3260 Apr, [facility] [place] [facility] [address] [id number], [place] [address]- 0614 Apr, [facility] [place] [facility] [address] [id number] [place] [address]- 7432 Apr, [facility] [place] [facility] [address] [id number] [place] [address]- 3411 March, [facility] [place] [facility] [address] [id number] [place] [address]- 8688 March, [facility] [place] [facility] [address] [id number] [place] [address]- 0732 March, [facility] [address] [id number] [place] [address]- 3220 March, [facility] [address] [id number] [place] [address]- 5832 March, [facility] [address] [id number] [place] [address]- 3830 Feb, [facility] [address] [id number] [place] [address]- 8904 Feb, [facility] [address] [id number] [place] [address]- 6064 Jan, [facility] [address] [id number] [place] [address]- 2228 Jan, [facility] [address] [id number] [place] [address]- 8063 Jan, [facility] [address] [id number] [place] [address]- 3249 Jan, [facility] [address] [id number] [place] [address]- 9218 Jan, [facility] [address] [id number] [place] [address]- 4721 Dec, [facility] [address] [id number] [place] [address]- 0478 Dec, [facility] [address] [id number] [place] [address]- 5333 Nov, [facility] [place] [facility] [address] [id number] [place] [address]- 6818 Nov, [facility] [place] [facility] [address] [id number] [place] [address]- 9033 Nov, [facility] [address] [id number] [place] [address]- 2704 16 Nov, 2012 [facility] [place] [facility] [address] [id number] [place] [address]- 8847 15 Nov, 2012 [facility] [address] [id number] [place] [address]- 4529 14 Nov, 2012 [facility] [address] [id number] [place] [address]- 6836 14 Nov, 2012 [facility] [address] [id number] [place] [address]- 1413 Nov, [facility] [address] [id number] [place] [address]- 1109 Nov, [facility] [address] [id number] [place] [address]- 3493 Nov, [facility] [address] [id number] [place] [address]- 4293 Nov, [facility] [address] [id number] [place] [address]- 6999 Oct, [facility] [address] [id number] [place] [address]- 3313 Oct, [facility] [address] [id number] [place] [address]- 0306 Sep, [facility] [address] [id number] [place] [address]- 2915 Sep, [facility] [address] [id number] [place] [address]- 8573 Sep, [facility] [address] [id number] [place] [address]- 4372 Sep, [facility] [place] [facility] [address] [id number] [place] [address]- 8112 Sep, [facility] [place] [facility] [address] [id number] [place] [address]- 7036 Sep, [facility] [address] [id number] [place] [address]- 4038 Sep, [facility] [place] [facility] [address] [id number] [place] [address]- 2310 Sep, [facility] [place] [facility] [address] [id number] [place] [address]- 6429 Sep, [facility] [place] [facility] [address] [id number] [place] [address]- 9169 Sep, [facility] [place] [facility] [address] [id number] [place] [address]- 0737 Sep, [facility] [place] [facility] [address] [id number] [place] [address]- 0321 Sep, [facility] [place] [facility] [address] [id number] [place] [address]- 0971 Sep, [facility] [place] [facility] [address] [id number] [place] [address]- 0893 Sep, [facility] [place] [facility] [address] [id number] [place] [address]- 2885 Aug, [facility] [place] [facility] [address] [id number] [place] [address]- 3633 Aug, [facility] [place] [facility] [address] [id number] [place] [address]- 0731 Aug, [facility] [place] [facility] [address] [id number], [place] [address]- 2471 Aug, [facility] [place] [facility] [address] [id number], [place] [address]- 5153 Aug, [facility] [place] [facility] [address] [id number] [place] [address]- 4094 Aug, [facility] [place] [facility] [address] [id number] [place] [address] Aug, [facility] [place] [facility] [address] [id number] [place] [address] Aug, [facility] [place] [facility] [id number] [id number] Aug, [facility] [address] [facility] [id number], [place] [address] Aug, [facility] [address] [facility] [id number][place] [address] Aug, [facility] [id number] [address] Aug, [facility] [address] [facility] [id number], [place] [address] Aug, [facility] [id number] [place] [address] Aug, [facility] [id number] [address] Aug, [facility] [id number], [place] [address] Aug, [facility] [id number], [place] [address] Aug, [facility] [id number], [place] [address] Jul, [facility] [id number], [place] [address] Jun, [facility] [id number], [place] [address] Aug, [facility] [id number], [place] [address] Aug, [facility] [id number] [address] Aug, IMMUNIZATIONS No Known Immunizations SOCIAL HISTORY Never Assessed REASON FOR VISIT April report PLAN OF CARE VITAL SIGNS MEDICATIONS Unknown [...] surgery 08/16/2016 Hospitalization History Chest pain, CAD, HTN-[facility] 05/14/17 Hospitalization History chest pain, edema-[facility] 05/04/18
--- OUTSIDE RECORDS SUMMARY | 2018-09-08 15:07 | XMS REPORT ---
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 Active 47976064 Problem Urge incontinence of urine N39.41 Active 06043746 Problem Dependence on supplemental oxygen Z99.81 Active 729380759876 Problem Other chronic pain G89.29 Active 73007808 Problem Restless legs syndrome G25.81 Active 196172787 Problem Chronic systolic heart failure I50.22 Active 847282818 Problem Chronic pain syndrome G89.4 Active 681369658 Problem Gastroesophageal reflux disease without esophagitis K21.9 Active 191201846 Problem Morbid obesity E66.01 Active 269351723 Problem Morbid (severe) obesity due to excess calories E66.01 Active 828745800 Problem Lumbar pain M54.5 Active 208827082 Problem Chronic stasis dermatitis I83.10 Active 33234071 Problem Essential hypertension I10 Active 41563975 Problem Acquired hypothyroidism E03.9 Active 589219203 Problem Nocturnal hypoxia G47.34 Active 616659720 Problem Mixed hyperlipidemia E78.2 Active 973274633 Problem Renal insufficiency N28.9 Active 321712078 Problem Edema of both legs R60.0 Active 504031541 Problem Lymphedema I89.0 Active 640151990 Problem Stasis dermatitis without varicosities I87.2 Active 10888948 ALLERGIES Substance Reaction Event Type Date Status Bactrim DS hives Drug Allergy Apr, Active nitrate tape hives Non Drug Allergy Apr, Active ENCOUNTERS Encounter Location Date Diagnosis [facility] [address] [facility] [id number] [address] Jul, [facility] [address] [id number] [address] Jun, Cellulitis of right lower leg L03.115 [facility] [id number] [place] [address] 41425- 2350 Jun, [facility] [id number] [place] [address] 06894- 5921 May, [facility] [id number] [place] [address] 92243- 1674 May, [facility] [id number] [place] [address] 09960- 8543 Apr, Essential hypertension I10 ; Chronic systolic heart failure I50.22 ; Pain in right knee M25.561 ; Pain in left knee M25.562 ; Other chronic pain G89.29 ; Mixed hyperlipidemia E78.2 ; Morbid obesity E66.01 and Body mass index (BMI) 70 or greater, adult Z68.45 [facility] [id number] [place] [address] 03709- 8712 Apr, [facility] [id number] [place] [address] 27830- 2905 Apr, Acquired hypothyroidism E03.9 [facility] [id number] [place] [address] 35831- 6247 Apr, Acquired hypothyroidism E03.9 [facility] [address], [place] [address] 72[address] Apr, [facility] [id number] [place] [address] 68211- 7549 Apr, [facility] [id number] [place] [address] 68244- 0569 Apr, Acquired hypothyroidism E03.9 ; Morbid (severe) obesity due to excess calories E66.01 ; Body mass index (BMI) 70 or greater, adult Z68.45 ; Restless legs syndrome G25.81 ; Essential hypertension I10 and Lymphedema I89.0 [facility] [id number] [place] [address] 53553- 9275 Feb, [facility] [id number] [place] [address] 40875- 4974 Jan, [facility] [id number] [place] [address] 58703- 0041 Jan, [facility] [id number] [place] [address] 59054- 0644 Jan, Acquired hypothyroidism E03.9 ; Morbid (severe) obesity due to excess calories E66.01 ; Body mass index (BMI) 70 or greater, adult Z68.45 ; Cellulitis of left anterior lower leg L03.116 ; Restless legs syndrome G25.81 ; Nocturnal hypoxia G47.34 and Dependence on supplemental oxygen Z99.81 [facility] [id number] [place] [address] 53518- 2450 Jan, [facility] [id number] [place] [address] 06099- 6520 Dec, [facility] [id number] [place] [address] 69022- 2197 Oct, [facility] [id number] [place] [address] 41790- 2193 07 Oct, 2017 [facility] [id number] [place] [address] 23274- 6039 Sep, [facility] [id number] [place] [address] 78161- 0919 Sep, [facility] [id number] [place] [address] 23485- 3449 16 Sep, 2017 Dental examination Z01.20 [facility] [id number] [place] [address] 65119- 6322 01 Sep, 2017 Morbid obesity due to excess calories E66.01 ; Body mass index (BMI) of 70 or greater in adult Z68.45 ; Stasis dermatitis without varicosities I87.2 ; Lymphedema I89.0 ; Renal insufficiency N28.9 ; Acquired hypothyroidism E03.9 ; Cellulitis L03.90 ; Bronchitis J40 and BMI 40.0-44.9, adult Z68.41 [facility] [id number] [place] [address] 27954- 2934 Aug, [facility] [address] [id number] Aug, Dental examination Z01.20 [facility] [id number] [place] [address] 59714- 0710 Aug, [facility] [id number] [place] [address] 69544- 6247 Jul, [facility] [id number] [place] [address] 54935- 9062 Jul, [facility] [id number] [place] [address] 93165- 8853 18 Jul, 2017 [facility] [id number] [place] [address] 90384- 1058 Jul, [facility] [id number] [place] [address] 02952- 0714 Jul, [facility] [id number] [place] [address] 09743- 1805 Jun, [facility] [id number] [place] [address] 53562- 9262 Jun, Dependence on nocturnal oxygen therapy Z99.81 ; Morbid obesity due to excess calories E66.01 and Bronchitis J40 [facility] [id number] [place] [address] 98760- 2108 Jun, Restless legs syndrome G25.81 [facility] [id number] [place] [address] 45830- 8826 Jun, [facility] [id number] [place] [address] 70784- 8975 May, [facility] [address] [place] [id number] Apr, [facility] [id number] [place] [address] 70424- 0245 Apr, [facility] [id number] [place] [address] 43965- 4469 Apr, Essential hypertension I10 [facility] [id number] [place] [address] 89447- 3142 Apr, [facility] [id number] [place] [address] 68699- 8306 Apr, Chronic pain syndrome G89.4 and Urge incontinence of urine N39.41 [facility] [id number] [place] [address] 89255- 7992 March, Acquired hypothyroidism E03.9 [facility] [id number] [place] [address] 30472- 7964 March, [facility] [id number] [place] [address] 12325- 6291 March, [facility] [id number] [place] [address] 83377- 4612 March, Chronic pain syndrome G89.4 ; Essential [...] extremity L03.116 and Screening breast examination Z12.39 [facility] [address] [place] [address] 68222- 0648 March, [facility] [id number] [place] [address] 80801- 0458 Feb, [facility] [id number] [place] [address] 82500- 4249 Feb, [facility] [id number] [place] [address] 28718- 4414 Feb, Chronic pain syndrome G89.4 [facility] [id number] [place] [address] 25062 -0043 Feb, Right foot pain M79.671 and Right foot sprain, initial encounter S93.601A [facility] [id number] [place] [address] 38305- 9481 Jan, [facility] [id number] [place] [address] 19565- 5048 Jan, [facility] [id number] [place] [address] 60812- 0506 Jan, Chronic pain syndrome G89.4 [facility] [id number] [place] [address] 36200- 0795 Jan, [facility] [id number] [place] [address] 21108- 4449 Dec, [facility] [id number] [place] [address] 08732- 2648 Dec, [facility] [id number] [place] [address] 80676- 4694 Dec, Pain in right knee M25.561 ; Pain in left knee M25.562 ; Essential hypertension I10 ; Chronic stasis dermatitis I83.10 ; Restless legs syndrome G25.81 ; Acquired hypothyroidism E03.9 ; Dependence on nocturnal oxygen therapy Z99.81 ; Mixed hyperlipidemia E78.2 ; Lymphedema I89.0 ; Chronic pain syndrome G89.4 ; Gastroesophageal reflux disease without esophagitis K21.9 and Urge incontinence of urine N39.41 [facility] [id number] [place] [address] 60320- 0812 Nov, Mixed hyperlipidemia E78.2 [facility] [id number] [place] [address] 01333- 3629 Nov, [facility] [address] [id number] [place] [address]- 5799 Nov, [facility] [address] [id number] [place] [address]- 4263 Nov, [facility] [address] [id number] [place] [address] Nov, Stasis ulcer, left I83.029 [facility] [address] [id number] [place] [address]- 8737 Nov, [facility] [address] [id number] [place] [address]- 1681 Oct, [facility] [address] [id number] [place] [address]- 9929 Oct, [facility] [address] [id number] [place] [address]- 1032 Oct, [facility] [address] [id number] [place] [address]- 1413 Sep, [facility] [address] [id number] [place] [address]- 0133 Sep, [facility] [address] [id number] [id number] Sep, [facility] [address] [id number] [place] [address]- 5881 Aug, [facility] [address] [id number] [place] [address]- 7909 Jul, [facility] [address] [id number] [place] [address]- 3298 Jul, [facility] [address] [id number] [place] [address]- 5759 Jul, [facility] [address] [id number] [place] [address]- 8835 Jul, [facility] [id number] [place] [address] 23084- 4438 14 Jul, 2016 Chest pain, unspecified type R07.9 ; Dyspnea on exertion R06.09 ; Essential hypertension I10 ; Hyperlipidemia, unspecified hyperlipidemia type E78.5 ; Left bundle branch block I44.7 and Hypothyroidism, unspecified type E03.9 [facility] [id number] [place] [address] 75864 -6580 Jun, Fever, unspecified fever cause R50.9 ; Headache, unspecified headache type R51 ; SOB (shortness of breath) R06.02 and Strep pharyngitis J02.0 [facility] [address] 88438- 6117 Jun, [facility] [address] 54510- 6175 Jun, [facility] [address] 90174- 2483 Jun, Essential hypertension I10 ; Mixed hyperlipidemia E78.2 and Acquired hypothyroidism E03.9 [facility] [address] 75664- 9342 Jun, Edema of both legs R60.0 ; Hypoxia R09.02 and Essential hypertension I10 [facility] [id number] [place] [address] 45882- 8015 Jun, [facility] [address] 62943- 2047 Jun, Edema of both legs R60.0 ; Hypoxia R09.02 and Essential hypertension I10 [facility] [address] 57708- 8996 Jun, Essential hypertension I10 ; Dependence on supplemental oxygen Z99.81 and Edema of both legs R60.0 [facility] [id number] [place] [address] 47591- 5860 May, Lumbar pain M54.5 ; Essential hypertension I10 ; Edema of both legs R60.0 ; Stasis dermatitis without varicosities I87.2 and Left knee pain M25.562 [facility] [id number] [place] [address] 15896- 5401 May, [facility] [id number] [place] [address] 74088- 6297 May, [facility] [id number] [place] [address] 50239- 7384 May, [facility] [id number] [place] [address] 60518- 4064 Apr, [facility] [id number] [place] [address] 30397- 2966 Apr, [facility] [id number] [place] [address] 31438- 2858 March, [facility] [id number] [place] [address] 49499- 5476 March, Lymphedema I89.0 ; Morbid obesity due to excess calories E66.01 ; Alteration in mobility due to weakness R53.1 and Hypoxia R09.02 [facility] [id number] [place] [address] 55581- 6697 March, Abdominal wall mass R19.00 [facility] [id number] [place] [address] 34958- 4262 March, [facility] [id number] [place] [address] 25857- 8422 March, Abdominal wall mass R19.00 ; Lower abdominal pain R10.30 ; Alteration in mobility due to weakness R53.1 ; Hypoxia R09.02 and Lymphedema I89.0 [facility] [id number] [place] [address] 89030- 3946 Feb, [facility] [id number] [place] [address] 18105- 3653 Feb, Acquired hypothyroidism E03.9 ; Dependence on machine for supplemental oxygen V46.2 ; Restless legs syndrome G25.81 ; Essential hypertension I10 ; Renal insufficiency N28.9 ; Chronic stasis dermatitis I83.10 ; Mixed hyperlipidemia E78.2 ; Other chronic pain 338.29 and Cellulitis of left lower extremity L03.116 [facility] [id number] [place] [address] 48177- 6136 Feb, [facility] [address] 16180- 3968 Feb, [facility] [address] 28267 -6667 Feb, Shortness of breath R06.02 and Bronchitis J40 [facility] [address] 02488- 5482 Jan, Dependence on supplemental oxygen Z99.81 [facility] [address] 49888- 9899 Jan, [facility] [address] 18798- 0456 Dec, [facility] [address] 31498- 2610 Dec, [facility] [address] 35985- 7927 Nov, Osteoarthritis of knees, bilateral M17.[address] [address]130- 1978 Nov, Dependence on machine for supplemental oxygen V46.2 ; Nocturnal hypoxia G47.34 and Urgency of urination R39.[address] 61557- 9187 Nov, [address] 19722- 8134 14 Oct, 2015 Pain in right knee M25.561 and Pain in left knee M25.562 [facility] [address] 77162- 5108 Oct, Acquired hypothyroidism E03.9 ; Renal insufficiency N28.9 and Chronic stasis dermatitis I83.10 [facility] [address] 25956- 2896 Oct, [facility] [id number] [place] [address] 94923- 6670 Sep, Cellulitis L03.90 ; Left knee pain M25.562 ; Essential hypertension I10 ; Lymphedema I89.0 ; Lumbar pain M54.5 ; Morbid obesity due to excess calories E66.01 and Renal insufficiency N28.9 [facility] [address] 29919- 1382 Sep, Cellulitis L03.90 and Lymphedema I89.0 [facility] [address] 32284- 8817 Sep, [facility] [address] 57124- 5231 Sep, [facility] [id number] [place] [address] 04677- 5034 Sep, Left knee pain M25.562 ; Lumbar pain M54.5 ; Restless legs syndrome G25.81 ; Acquired hypothyroidism E03.9 and Essential hypertension I10 [facility] [id number] [place] [address] 15455- 8781 Jul, [facility] [id number] [place] [address] 42036- 9316 Jun, [facility] [id number] [place] [address] 70858- 9899 May, [facility] [address] 84958- 8811 May, [facility] [id number] [place] [address] 17773- 5518 May, Hypertension 997.91 ; Restless legs syndrome [RLS] 333.94 ; Unspecified venous (peripheral) insufficiency 459.81 ; Unspecified hypothyroidism 244.9 and Other chronic pain 338.29 [facility] [id number] [place] [address] 684609- 3006 Apr, [facility] [id number] [place] [address] 12933- 4061 Apr, [facility] [id number] [place] [address] 669388- 3729 Apr, Restless legs syndrome [RLS] 333.94 ; Shortness of breath 786.05 ; Unspecified venous (peripheral) insufficiency 459.81 ; Unspecified hypothyroidism 244.9 ; Obesity, unspecified 278.00 ; Other chronic pain 338.29 ; Hypertension 997.91 and Hyperlipidemia 272.4 [facility] [id number] [place] [address] 92736- 6771 Feb, [facility] [id number] [place] [address] 32092- 9371 Feb, [facility] [id number] [place] [address] 74410- 6637 Jan, [facility] [id number] [place] [address] 27632- 9873 Jan, [facility] [address], [place] [address]- 1434 Jan, [facility] [address] [address]- 7342 Jan, [facility] [address] [place] [address] 07186- 5184 Jan, [facility] [id number] [place] [address] 04898962- 1877 Jan, [facility] [address] 7370 Jan, [facility] [id number] [place] [address] 29242- 1596 Jan, [facility] [place] [facility] [address] [id number] [place] [address]- 6003 Jan, [facility] [place] [facility] [address] [id number] [place] [address]- 2041 Jan, [facility] [place] [facility] [address] [id number] [place] [address]- 3100 Jan, [facility] [place] [facility] [address] [id number] [place] [address]- 5501 Jan, [facility] [place] [facility] [address] [id number] [place] [address]- 3170 Jan, [facility] [place] [facility] [address] [id number] [place] [address]- 1893 Jan, [facility] [place] [facility] [address] [id number] [place] [address]- 7375 Dec, [facility] [place] [facility] [address] [id number] [place] [address]- 7336 Dec, [facility] [place] [facility] [address] [id number] [place] [address]- 9358 Nov, [facility] [place] [facility] [address] [id number] [place] [address]- 8774 Nov, [facility] [place] [facility] [address] [id number] [place] [address]- 5683 Nov, [facility] [place] [facility] [address] [id number] [place] [address]- 1139 Nov, [facility] [place] [facility] [address] [id number] [place] [address]- 5243 Nov, [facility] [place] [facility] [address] [id number] [place] [address]- 2419 Nov, [facility] [place] [facility] [address] [id number] [place] [address]- 1980 Nov, [facility] [place] [facility] [address] [id number] [place] [address]- 0839 Nov, [facility] [address] [id number] [place] [address]- 8286 Nov, [facility] [place] [facility] [address] [id number] [place] [address]- 1673 Nov, [facility] [address] [id number] [place] [address]- 4163 Nov, [facility] [place] [facility] [address] [id number] [place] [address]- 5392 Nov, [facility] [address] [id number] [place] [address]- 8035 Nov, [facility] [place] [facility] [address] [id number] [place] [address]- 6711 Nov, [facility] [address] [id number] [place] [address]- 6657 Nov, [facility] [address] [id number] [place] [address] Nov, [facility] [place] [facility] [address] [id number] [place] [address] Oct, [facility] [address] [id number] [place] [address] Oct, [facility] [place] [facility] [address] [id number] [place] [address] Sep, [facility] [place] [facility] [address] [id number] [place] [address] Aug, [facility] [place] [facility] [address] [id number] [place] [address] Aug, [facility] [place] [facility] [address] [id number] [place] [address] Aug, [facility] [place] [facility] [address] [id number] [place] [address] Aug, [facility] [place] [facility] [address] [id number] [place] [address] Aug, [facility] [place] [facility] [address] [id number] [place] [address] Aug, [facility] [place] [facility] [address] [id number] [place] [address] Aug, [facility] [place] [facility] [address] [id number] [place] [address] Aug, [facility] [place] [facility] [address] [id number] [place] [address] Aug, [facility] [place] [facility] [address] [id number] [place] [address] Aug, [facility] [place] [facility] [address] [id number] [place] [address] Jun, [facility] [place] [facility] [address] [id number] [place] [address] Jun, [facility] [place] [facility] [address] [id number] [place] [address] Jun, [facility] [place] [facility] [address] [id number] [place] [address] Jun, [facility] [place] [facility] [address] [id number] [place] [address] Jun, [facility] [place] [facility] [address] [id number], [place] [address] Jun, [facility] [place] [facility] [address] [id number] [place] [address] Jun, [facility] [place] [facility] [address] [id number] [place] [address] Jun, [facility] [place] [facility] [address] [id number] [place] [address] Jun, [facility] [place] [facility] [address] [id number] [place] [address] Jun, [facility] [place] [facility] [address] [id number] [place] [address] May, [facility] [place] [facility] [address] [id number] [place] [address] May, [facility] [place] [facility] [address] [id number] [place] [address] 5768 May, [facility] [place] [facility] [address] [id number] [place] [address] 7991 May, [facility] [place] [facility] [address] [id number] [place] [address] 0802 May, [facility] [place] [facility] [address] [id number] [place] [address] 6088 May, [facility] [place] [facility] [address] [id number] [place] [address]- 5643 May, [facility] [place] [facility] [address] [id number] [place] [address]- 2507 May, [facility] [place] [facility] [address] [id number] [place] [address]- 5919 May, [facility] [place] [facility] [address] [id number] [place] [address]- 3247 May, [facility] [place] [facility] [address] [id number] [place] [address]- 7236 May, [facility] [place] [facility] [address] [id number] [place] [address]- 0021 May, [facility] [place] [facility] [address] [id number] [place] [address]- 9284 May, [facility] [place] [facility] [address] [id number] [place] [address]- 2649 May, [facility] [place] [facility] [address] [id number] [place] [address]- 0065 May, [facility] [place] [facility] [address] [id number] [place] [address]- 9604 May, [facility] [place] [facility] [address] [id number] [place] [address]- 2756 May, [facility] [place] [facility] [address] [id number] [place] [address]- 1704 May, [facility] [place] [facility] [address] [id number] [place] [address]- 5551 Apr, [facility] [place] [facility] [address] [id number] [place] [address]- 2195 Apr, [facility] [place] [facility] [address] [id number] [place] [address]- 0493 Apr, [facility] [place] [facility] [address] [id number] [place] [address]- 8828 Apr, [facility] [place] [facility] [address] [id number] [place] [address]- 6540 Apr, [facility] [place] [facility] [address] [id number] [place] [address]- 5878 Apr, [facility] [place] [facility] [address] [id number] [place] [address]- 0719 Apr, [facility] [place] [facility] [address] [id number] [place] [address]- 1772 Apr, [facility] [place] [facility] [address] [id number] [place] [address]- 4679 Apr, [facility] [place] [facility] [address] [id number] [place] [address]- 3273 Apr, [facility] [place] [facility] [address] [id number] [place] [address]- 8448 Apr, [facility] [place] [facility] [address] [id number] [place] [address]- 5989 Apr, [facility] [place] [facility] [address] [id number] [place] [address]- 5277 March, [facility] [address] [id number] [place] [address]- 6370 March, [facility] [place] [facility] [address] [id number] [place] [address]- 9074 March, [facility] [place] [facility] [address] [id number] [place] [address]- 5825 March, [facility] [place] [facility] [address] [id number] [place] [address]- 6715 March, [facility] [place] [facility] [address] [id number] [place] [address]- 9128 March, [facility] [place] [facility] [address] [id number] [place] [address]- 6378 March, [facility] [place] [facility] [address] [id number] [place] [address]- 1763 March, [facility] [place] [facility] [address] [id number] [place] [address]- 6585 March, [facility] [place] [facility] [address] [id number] [place] [address]- 3257 March, [facility] [place] [facility] [address] [id number] [place] [address]- 5884 March, [facility] [place] [facility] [address] [id number] [place] [address]- 2486 Feb, [facility] [place] [facility] [address] [id number] [place] [address]- 2171 Feb, [facility] [place] [facility] [address] [id number] [place] [address]- 2483 Feb, [facility] [place] [facility] [address] [id number] [place] [address]- 9971 Feb, [facility] [place] [facility] [address] [id number] [place] [address]- 5653 Feb, [facility] [place] [facility] [address] [id number] [place] [address]- 5034 Feb, [facility] [place] [facility] [address] [id number] [place] [address]- 9499 Feb, [facility] [place] [facility] [address] [id number] [place] [address]- 7340 Feb, [facility] [place] [facility] [address] [id number] [place] [address]- 5585 Feb, [facility] [place] [facility] [address] [id number] [place] [address]- 3356 Feb, [facility] [place] [facility] [address] [id number] [place] [address]- 9449 Feb, [facility] [place] [facility] [address] [id number] [place] [address]- 2080 Feb, [facility] [place] [facility] [address] [id number] [place] [address]- 4245 Feb, [facility] [place] [facility] [address] [id number] [place] [address]- 5258 Feb, [facility] [place] [facility] [address] [id number] [place] [address]- 0878 Feb, [facility] [place] [facility] [address] [id number] [place] [address]- 3907 Feb, [facility] [place] [facility] [address] [id number] [place] [address]- 0176 Feb, [facility] [place] [facility] [address] [id number] [place] [address]- 9636 Feb, [facility] [place] [facility] [address] [id number] [place] [address]- 0945 Feb, [facility] [place] [facility] [address] [id number] [place] [address]- 9207 Feb, [facility] [place] [facility] [address] [id number] [place] [address]- 9461 Jan, [facility] [place] [facility] [address] [id number] [place] [address]- 0087 31 Jan, 2014 [facility] [place] [facility] [address] [id number] [place] [address]- 7387 Jan, [facility] [place] [facility] [address] [id number] [place] [address]- 6829 Jan, [facility] [place] [facility] [address] [id number] [place] [address]- 7813 Jan, [facility] [place] [facility] [address] [id number] [place] [address]- 5364 24 Jan, 2014 [facility] [place] [facility] [address] [id number] [place] [address]- 7816 Jan, [facility] [place] [facility] [address] [id number] [place] [address]- 7963 Jan, [facility] [place] [facility] [address] [id number] [place] [address]- 7649 Jan, [facility] [place] [facility] [address] [id number] [place] [address]- 5109 Jan, [facility] [place] [facility] [address] [id number] [place] [address]- 4026 Jan, [facility] [place] [facility] [address] [id number] [place] [address]- 4132 Jan, [facility] [place] [facility] [address] [id number] [place] [address]- 0297 Jan, [facility] [place] [facility] [address] [id number] [place] [address]- 8798 Jan, [facility] [place] [facility] [address] [id number] [place] [address]- 6980 Dec, [facility] [place] [facility] [address] [id number] [place] [address]- 3941 Dec, [facility] [place] [facility] [address] [id number] [place] [address]- 0167 Dec, [facility] [address] [id number] [place] [address]- 3516 Dec, [facility] [place] [facility] [address] [id number] [place] [address]- 0466 Dec, [facility] [place] [facility] [address] [id number] [place] [address]- 9406 Dec, [facility] [place] [facility] [address] [id number] [place] [address]- 7113 Dec, [facility] [place] [facility] [address] [id number] [place] [address]- 2656 Dec, [facility] [place] [facility] [address] [id number] [place] [address]- 4043 Dec, [facility] [address] [id number] [place] [address]- 5458 Nov, [facility] [place] [facility] [address] [id number] [place] [address]- 1289 Nov, [facility] [place] [facility] [address] [id number] [place] [address]- 1166 Nov, [facility] [address] [id number] [place] [address]- 7028 Nov, [facility] [address] [id number] [place] [address]- 9948 Oct, [facility] [place] [facility] [address] [id number] [place] [address]- 3294 Oct, [facility] [place] [facility] [address] [id number] [place] [address]- 0874 Oct, [facility] [place] [facility] [address] [id number] [place] [address]- 3702 Oct, [facility] [place] [facility] [address] [id number] [place] [address]- 4704 Oct, [facility] [place] [facility] [address] [id number] [place] [address]- 6782 24 Oct, 2013 [facility] [address] [id number] [place] [address]- 6627 23 Oct, 2013 [facility] [place] [facility] [address] [id number] [place] [address] 23 Oct, 2013 [facility] [address] [id number] [place] [address]- 5866 20 Oct, 2013 [facility] [address] [id number] [place] [address]- 9230 19 Oct, 2013 [facility] [address] [id number] [place] [address]- 4278 19 Oct, 2013 [facility] [address] [id number] [place] [address]- 2092 18 Oct, 2013 [facility] [address] [id number] [place] [address]- 2641 18 Oct, 2013 [facility] [address] [id number] [place] [address]- 7762 17 Oct, 2013 [facility] [address] [id number] [place] [address]- 7138 17 Oct, 2013 [facility] [address] [id number] [place] [address]- 2913 17 Oct, 2013 [facility] [place] [facility] [address] [id number] [place] [address]- 1371 17 Oct, 2013 [facility] [place] [facility] [address] [id number] [place] [address]- 1259 17 Oct, 2013 [facility] [place] [facility] [address] [id number] [place] [address]- 4745 17 Oct, 2013 [facility] [place] [facility] [address] [id number] [place] [address]- 0819 11 Oct, 2013 [facility] [place] [facility] [address] [id number], [place] [address]- 6847 Oct, [facility] [place] [facility] [address] [id number] [place] [address]- 5874 Sep, [facility] [place] [facility] [address] [id number], [place] [address]- 3752 Sep, [facility] [place] [facility] [address] [id number], [place] [address]- 8344 Sep, [facility] [place] [facility] [address] [id number], [place] [address]- 4629 Sep, [facility] [place] [facility] [address] [id number] [place] [address]- 6652 18 Sep, 2013 [facility] [place] [facility] [address] [id number], [place] [address]- 8470 Sep, [facility] [place] [facility] [address] [id number], [place] [address]- 8762 Sep, [facility] [place] [facility] [address] [id number], [place] [address]- 8597 Sep, [facility] [place] [facility] [address] [id number], [place] [address]- 6643 Sep, [facility] [place] [facility] [address] [id number], [place] [address]- 5523 Sep, [facility] [place] [facility] [address] [id number], [place] [address]- 8562 Sep, [facility] [place] [facility] [address] [id number], [place] [address]- 3406 Sep, [facility] [place] [facility] [address] [id number], [place] [address]- 0514 Aug, [facility] [place] [facility] [address] [id number], [place] [address]- 3370 Aug, [facility] [place] [facility] [address] [id number], [place] [address]- 2131 Aug, [facility] [place] [facility] [address] [id number] [place] [address]- 2545 Aug, 2012 [facility] [address] [id number] [place] [address]- 5910 Aug, 2012 [facility] [place] [facility] [address] [id number] [place] [address]- 9048 Aug, 2012 [facility] [address] [id number] [place] [address]- 7852 Aug, 2012 [facility] [place] [facility] [address] [id number] [place] [address]- 5602 Aug, 2012 [facility] [address] [id number] [place] [address]99 Aug, 2012 [facility] [address] [id number] [place] [address]- 9596 16 Aug, 2012 [facility] [place] [facility] [address] [id number] [place] [address]- 3493 Aug, 2012 [facility] [address] [id number] [place] [address]- 2869 10 Aug, 2013 [facility] [place] [facility] [address] [id number] [place] [address]- 5091 08 Aug, 2013 [facility] [address] [id number] [place] [address]- 5931 07 Aug, 2013 [facility] [place] [facility] [address] [id number] [place] [address]- 8021 04 Aug, 2013 [facility] [place] [facility] [address] [id number] [place] [address]- 4378 Aug, [facility] [place] [facility] [address] [id number] [place] [address]- 5146 02 Aug, 2013 [facility] [place] [facility] [address] [id number] [place] [address]- 2546 16 Jul, 2013 [facility] [place] [facility] [address] [id number] [place] [address]- 5291 Jun, [facility] [place] [facility] [address] [id number] [place] [address]- 4440 Jun, [facility] [place] [facility] [address] [id number] [place] [address]- 8966 May, [facility] [place] [facility] [address] [id number] [place] [address]- 9538 May, [facility] [place] [facility] [address] [id number] [place] [address]- 9824 Apr, [facility] [place] [facility] [address] [id number] [place] [address]- 1928 Apr, [facility] [place] [facility] [address] [id number] [place] [address]- 9935 Apr, [facility] [place] [facility] [address] [id number] [place] [address]- 1056 Apr, [facility] [place] [facility] [address] [id number] [place] [address]- 1166 Apr, [facility] [place] [facility] [address] [id number] [place] [address]- 5979 Apr, [facility] [place] [facility] [address] [id number] [place] [address]- 7797 Apr, [facility] [place] [facility] [address] [id number] [place] [address]- 9700 Apr, [facility] [place] [facility] [address] [id number], [place] [address]- 2867 Apr, [facility] [place] [facility] [address] [id number] [place] [address]- 0892 Apr, [facility] [place] [facility] [address] [id number] [place] [address]- 2661 Apr, [facility] [place] [facility] [address] [id number], [place] [address]- 1639 March, [facility] [place] [facility] [address] [id number], [place] [address]- 9615 March, [facility] [address] [id number] [place] [address]- 3896 March, [facility] [address] [id number] [place] [address]- 4816 March, [facility] [address] [id number] [place] [address]- 0376 March, [facility] [address] [id number] [place] [address]- 7226 Feb, [facility] [address] [id number] [place] [address]- 4448 Feb, [facility] [address] [id number] [place] [address]- 9207 Jan, [facility] [address] [id number] [place] [address]- 1117 Jan, [facility] [address] [id number] [place] [address]- 9613 Jan, [facility] [address] [id number] [place] [address]- 3875 Jan, [facility] [address] [id number] [place] [address]- 5388 Jan, [facility] [address] [id number] [place] [address]- 4694 Dec, [facility] [address] [id number] [place] [address]- 8521 Dec, [facility] [address] [id number] [place] [address]- 5212 Nov, [facility] [address] [id number] [place] [address]- 1440 Nov, [facility] [address] [id number] [place] [address]- 3315 Nov, [facility] [address] [id number] [place] [address]- 9042 16 Nov, 2012 [facility] [place] [facility] [address] [id number] [place] [address]- 0777 15 Nov, 2012 [facility] [place] [facility] [address] [id number] [place] [address]- 3518 14 Nov, 2012 [facility] [place] [facility] [address] [id number] [place] [address]- 2726 14 Nov, 2012 [facility] [place] [facility] [address] [id number] [place] [address]- 3827 Nov, [facility] [place] [facility] [address] [id number] [place] [address]- 5193 Nov, [facility] [place] [facility] [address] [id number] [place] [address]- 8962 Nov, [facility] [place] [facility] [address] [id number] [place] [address]- 1705 Nov, [facility] [place] [facility] [address] [id number] [place] [address]- 9253 Oct, [facility] [place] [facility] [address] [id number] [place] [address]- 6902 28 Oct, 2012 [facility] [place] [facility] [address] [id number] [place] [address]- 7597 Sep, [facility] [place] [facility] [address] [id number] [place] [address]- 0393 27 Sep, 2012 [facility] [place] [facility] [address] [id number] [place] [address] 2541 13 Sep, 2012 [facility] [place] [facility] [address] [id number] [place] [address] 2545 13 Sep, 2012 [facility] [place] [facility] [address] [id number] [place] [address]- 2542 12 Sep, 2012 [facility] [place] [facility] [address] [id number] [place] [address]- 6851 Sep, [facility] [place] [facility] [address] [id number] [place] [address]- 8648 Sep, [facility] [place] [facility] [address] [id number], [place] [address]- 7226 Sep, [facility] [place] [facility] [address] [facility] [id number] [place] [address]- 9223 Sep, [facility] [place] [facility] [address] [id number], [place] [address]- 4626 Sep, [facility] [place] [facility] [address] [id number] [place] [address]- 0559 Sep, [facility] [place] [facility] [address] [facility] [id number], [place] [address] Sep, [facility] [place] [facility] [address] [facility] [id number], [place] [address] Sep, [facility] [place] [facility] [address] [id number], [place] [address] Sep, [facility] [place] [facility] [address] [facility] [id number], [place] [address] Aug, [facility] [place] [facility] [address] [facility] [id number], [place] [address] Aug, [facility] [place] [facility] [address] [facility] [id number], [place] [address] Aug, [facility] [place] [facility] [address] [id number], [place] [address] Aug, [facility] [place] [facility] [address] [id number], [place] [address] Aug, [facility] [place] [facility] [address] [facility] [id number], [place] [address] Aug, [facility] [place] [facility] [address] [facility] [id number], [place] [address] Aug, [facility] [place] [facility] [address] [facility] [id number], [place] [address] Aug, [facility] [address] [facility] [id number], [place] [address] Aug, [facility] [address] [facility] [id number], [place] [address] Aug, [facility] [address] [facility] [id number][place] [address] Aug, [facility] [address] [facility] [id number], [place] [address] Aug, [facility] [address] [facility] [id number] [place] [address] [address] Aug, [facility] [address] [facility] [id number], [place] [address] Aug, [facility] [address] [facility] [id number], [place] [address] Aug, [facility] [address] [facility] [id number], [place] [address] Aug, [facility] [address] [facility] [id number], [place] [address] Aug, [facility] [address] [facility] [id number], [place] [address] Jul, [facility] [address] [facility] [id number], [place] [address] Jun, [facility] [address] [facility] [id number], [place] [address] Aug, [facility] [address] [facility] [id number], [place] [address] Aug, [facility] [address] [facility] [id number], [place] [address] Aug, IMMUNIZATIONS No Known Immunizations SOCIAL HISTORY Never Assessed REASON FOR VISIT [facility] follow up-FERNIE Quijano, wants refill of metolazone, Pt wants you to look at her left knee because they dropped her at the hospital and she fell on her knee PLAN OF CARE Activity Details Follow Up 3 months Reason: VITAL SIGNS Height 62 in 2018-05-08 Weight 469.7 lbs 2018-05-08 Temperature 98.3 degrees Fahrenheit 2018-05-08 Heart Rate 80 bpm 2018-05-08 Respiratory Rate 20 2018-05-08 BMI 85.90 kg/m2 2018-05-08 Blood pressure systolic 130 mmHg 2018-05-08 Blood pressure diastolic 68 mmHg 2018-05-08 MEDICATIONS Medication Instructions Dosage Frequency Start Date End Date Duration Status Cymbalta 60 MG TAKE ONE CAPSULE BY MOUTH ONCE DAILY 30 Active Aspirin 81 81 MG Orally Once a day 1 tablet 24h Active Ropinirole HCl 4 MG Orally Once a day 1 tablet 1 to 3 hours before bedtime 24h 30 Active Potassium Chloride ER 20 MEQ TAKE ONE TABLET BY MOUTH ONCE DAILY WITH FOOD 30 Active Wheelchair 1 as directed March, Active Levothyroxine Sodium 75 MCG Orally Once a day 1 tablet on an empty stomach in the morning 24h Active Entresto 24-26 MG Orally Twice a day 1 tablet 12h Active Cyclobenzaprine HCl 10 mg Orally at bedtime 1 tablet Active Triamcinolone Acetonide 0.1 % APPLY TO AFFECTED AREA TWICE DAILY FOR 10 DAYS 10 Active Clopidogrel Bisulfate 75 MG Orally Once a day 1 tablet 24h Active Simvastatin 20 mg Orally at bedtime 1 tablet 30 day Active Metolazone 2.5 MG Orally Once a day 1 tablet 24h 30 day Active Incontinence Supplies - Depends brief-size requested by patient 8h Apr Active Neurontin 300 MG Orally Once a day at night 1 capsule 30 Active Protonix 40 mg Orally Once a day 1 tablet 24h Jan, 30 day(s) Active Proventil HFA 108 (90 Base) MCG/ACT INHALE TWO PUFFS BY MOUTH EVERY 4 TO 6 HOURS NEEDED FOR COUGH OR WHEEZE 17 Active Metoprolol Tartrate 50 MG Orally Twice a day 1 tablet with food 12h Active RESULTS Name Result Date Reference Range Xray : Knees, Bilateral (IN HOUSE) 2018-05-08 PROCEDURES Procedure Date Ordered Result Body Site X-RAY EXAM OF KNEES May 08, 2018 INSTRUCTIONS MEDICATIONS ADMINISTERED No Known Medications MEDICAL [...] surgery 08/16/2016 Hospitalization History Chest pain, CAD, HTN-[facility] 05/14/17 Hospitalization History chest pain, edema-[facility] 05/04/18
--- OUTSIDE RECORDS SUMMARY | 2018-09-08 15:08 | XMS REPORT ---
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 Active 56894796 Problem Urge incontinence of urine N39.41 Active 06261950 Problem Dependence on supplemental oxygen Z99.81 Active 230648420175 Problem Other chronic pain G89.29 Active 69903169 Problem Restless legs syndrome G25.81 Active 007060681 Problem Chronic systolic heart failure I50.22 Active 040555509 Problem Chronic pain syndrome G89.4 Active 233062103 Problem Gastroesophageal reflux disease without esophagitis K21.9 Active 732565070 Problem Morbid obesity E66.01 Active 188507751 Problem Morbid (severe) obesity due to excess calories E66.01 Active 029958438 Problem Lumbar pain M54.5 Active 103985078 Problem Chronic stasis dermatitis I83.10 Active 11449027 Problem Essential hypertension I10 Active 37885254 Problem Acquired hypothyroidism E03.9 Active 993107178 Problem Nocturnal hypoxia G47.34 Active 273938091 Problem Mixed hyperlipidemia E78.2 Active 129718425 Problem Renal insufficiency N28.9 Active 906208749 Problem Edema of both legs R60.0 Active 256633677 Problem Lymphedema I89.0 Active 160599671 Problem Stasis dermatitis without varicosities I87.2 Active 32625345 ALLERGIES No Information ENCOUNTERS Encounter Location Date Diagnosis [facility] [address] [facility] [id number] [address] Jul, [facility] [address] [facility] [id number] [address] Jun, Cellulitis of right lower leg L03.115 [place] [id number] [place] [address] 72650- 9306 Jun, [facility] [id number] [place] [address] 11055- 7035 May, [facility] [id number] [place] [address] 91619- 3433 May, [facility] [id number] [place] [address] 03278- 1079 Apr, Essential hypertension I10 ; Chronic systolic heart failure I50.22 ; Pain in right knee M25.561 ; Pain in left knee M25.562 ; Other chronic pain G89.29 ; Mixed hyperlipidemia E78.2 ; Morbid obesity E66.01 and Body mass index (BMI) 70 or greater, adult Z68.45 [place] [place] [id number] [place] [address] 93212- 7965 Apr, [facility] [place] [id number] [place] [address] 88512- 6234 Apr, Acquired hypothyroidism E03.9 [facility] [place] [id number] [place] [address] 96202- 9539 Apr, Acquired hypothyroidism E03.9 [place] [id number] [place] [address] 55091- 1807 Apr, [facility] [place] [id number] [place] [address] 33742- 1755 Apr, [facility] [id number] [place] [address] 10053- 2007 Apr, Acquired hypothyroidism E03.9 ; Morbid (severe) obesity due to excess calories E66.01 ; Body mass index (BMI) 70 or greater, adult Z68.45 ; Restless legs syndrome G25.81 ; Essential hypertension I10 and Lymphedema I89.0 [place] [id number] [place] [address] 52208- 7459 16 Feb, 2018 [facility] [place] [id number] [address] 4525 29 Jan, 2018 [facility] [id number] [place] [address] 94341- 9078 Jan, [facility] [id number] [place] [address] 56427- 1344 Jan, Acquired hypothyroidism E03.9 ; Morbid (severe) obesity due to excess calories E66.01 ; Body mass index (BMI) 70 or greater, adult Z68.45 ; Cellulitis of left anterior lower leg L03.116 ; Restless legs syndrome G25.81 ; Nocturnal hypoxia G47.34 and Dependence on supplemental oxygen Z99.81 [facility] [id number] [place] [address] 85476- 9219 Jan, [facility] [place] [id number] [place] [address] 67345- 8284 Dec, [place] [id number] [place] [address] 16821- 0120 Oct, [facility] [id number] [place] [address] 06564- 7002 Oct, [place] [id number] [place] [address] 01365- 3692 Sep, [facility] [id number] [place] [address] 60714- 6005 Sep, [place] [id number] [place] [address] 68693- 1708 Sep, Dental examination Z01.20 [facility] [id number] [place] [address] 57614- 5919 Sep, Morbid obesity due to excess calories E66.01 ; Body mass index (BMI) of 70 or greater in adult Z68.45 ; Stasis dermatitis without varicosities I87.2 ; Lymphedema I89.0 ; Renal insufficiency N28.9 ; Acquired hypothyroidism E03.9 ; Cellulitis L03.90 ; Bronchitis J40 and BMI 40.0-44.9, adult Z68.41 [facility] [address] [address] Aug, [facility] [address] [id number] Aug, Dental examination Z01.20 [facility] [id number] [place] [address] 69752- 5203 Aug, [facility] [id number] [place] [address] 39781- 1368 Jul, [facility] [id number] [place] [address] 92303- 1445 Jul, [facility] [id number] [place] [address] 57276- 8990 18 Jul, 2017 [facility] [id number] [place] [address] 38897- 0246 Jul, [facility] [id number] [place] [address] 25794- 2764 Jul, [facility] [id number] [place] [address] 84665- 9035 Jun, [facility] [id number] [place] [address] 55591- 6432 Jun, Dependence on nocturnal oxygen therapy Z99.81 ; Morbid obesity due to excess calories E66.01 and Bronchitis J40 [facility] [id number] [place] [address] 70997- 1212 Jun, Restless legs syndrome G25.81 [facility] [id number] [place] [address] 80422- 4566 Jun, [facility] [id number] [place] [address] 55663- 2325 May, [facility] [place] [facility] [id number] [place] [address] [id number] Apr, [facility] [address] [address]- 1121 Apr, [facility] [id number] [place] [address] 19788- 2422 Apr, Essential hypertension I10 [facility] [id number] [place] [address] 79360- 3967 Apr, [place] [id number] [place] [address] 20478- 9326 Apr, Chronic pain syndrome G89.4 and Urge incontinence of urine N39.41 [place] [id number] [place] [address] 17437- 8627 March, Acquired hypothyroidism E03.9 [place] [id number] [place] [address] 77123- 1455 March, [place] [id number] [place] [address] 95383- 1474 March, [facility] [id number] [place] [address] 56134- 2707 March, Chronic pain syndrome G89.4 ; Essential [...] extremity L03.116 and Screening breast examination Z12.39 [place] [id number] [place] [address] 46583- 7139 March, [facility] [id number] [place] [address] 72916- 0875 Feb, [facility] [id number] [place] [address] 53672- 7078 Feb, [place] [id number] [place] [address] 44781- 6384 Feb, Chronic pain syndrome G89.4 [facility] [address] [address] Feb, Right foot pain M79.671 and Right foot sprain, initial encounter S93.601A [facility] [address] [address]- 2918 Jan, [facility] [id number] [place] [address] 35531- 3390 Jan, [facility] [id number] [place] [address] 04219- 5432 Jan, Chronic pain syndrome G89.4 [facility] [id number] [place] [address] 38066- 2539 Jan, [facility] [id number] [place] [address] 09589- 4726 Dec, [facility] [id number] [place] [address] 55596- 9958 Dec, [facility] [id number] [place] [address] 25254- 6177 Dec, Pain in right knee M25.561 ; Pain in left knee M25.562 ; Essential hypertension I10 ; Chronic stasis dermatitis I83.10 ; Restless legs syndrome G25.81 ; Acquired hypothyroidism E03.9 ; Dependence on nocturnal oxygen therapy Z99.81 ; Mixed hyperlipidemia E78.2 ; Lymphedema I89.0 ; Chronic pain syndrome G89.4 ; Gastroesophageal reflux disease without esophagitis K21.9 and Urge incontinence of urine N39.41 [facility] [id number] [place] [address] 55196- 1178 Nov, Mixed hyperlipidemia E78.2 [facility] [id number] [place] [address] 59047- 0748 Nov, [facility] [id number] [place] [address] 64259- 6121 Nov, [facility] [address] [facility] [id number] [place] [address]- 7719 Nov, [facility] [address] [place] [address] Nov, Stasis ulcer, left I83.029 [facility] [address] [place] [address]- 1853 Nov, [facility] [address] [place] [address]- 8551 Oct, [facility] [address] [facility] [id number] [place] [address]- 9909 Oct, [facility] [address] [place] [address]- 1950 Oct, [facility] [address] [place] [address]- 8069 Sep, [facility] [address] [place] [address]- 2738 Sep, [facility] [address] [id number] [id number] Sep, [facility] [address] [place] [address]- 2112 Aug, [facility] [id number] [address]- 3208 Jul, [facility] [address] [address]- 2386 Jul, [facility] [address] [facility] [id number] [place] [address]- 1069 Jul, [facility] [address] [address]- 1127 Jul, [facility] [id number] [address]- 2862 14 Jul, 2016 Chest pain, unspecified type R07.9 ; Dyspnea on exertion R06.09 ; Essential hypertension I10 ; Hyperlipidemia, unspecified hyperlipidemia type E78.5 ; Left bundle branch block I44.7 and Hypothyroidism, unspecified type E03.9 [facility] [id number] [place] [address] 47602 -5240 Jun, Fever, unspecified fever cause R50.9 ; Headache, unspecified headache type R51 ; SOB (shortness of breath) R06.02 and Strep pharyngitis J02.0 [facility] [id number] [place] [address] 62846- 1400 Jun, [place] [address] 34408- 4614 Jun, [facility] [address] 39744- 8702 Jun, Essential hypertension I10 ; Mixed hyperlipidemia E78.2 and Acquired hypothyroidism E03.9 [facility] [id number] [place] [address] 40704- 4713 Jun, Edema of both legs R60.0 ; Hypoxia R09.02 and Essential hypertension I10 [place] [id number] [place] [address] 83281- 3517 Jun, [facility] [id number] [place] [address] 73883- 0357 Jun, Edema of both legs R60.0 ; Hypoxia R09.02 and Essential hypertension I10 [facility] [id number] [place] [address] 60703- 5446 Jun, Essential hypertension I10 ; Dependence on supplemental oxygen Z99.81 and Edema of both legs R60.0 [place] [id number] [place] [address] 23590- 5135 May, Lumbar pain M54.5 ; Essential hypertension I10 ; Edema of both legs R60.0 ; Stasis dermatitis without varicosities I87.2 and Left knee pain M25.562 [place] [id number] [address]- 8380 May, [facility] [address] [address]- 3855 May, [facility] [address] [address]- 8899 May, [facility] [address] [place] [address] 07651- 5255 Apr, [facility] [address] [address]- 7308 Apr, [facility] [address] [place] [address] 33932- 6770 March, [facility] [address] [address]- 8551 March, Lymphedema I89.0 ; Morbid obesity due to excess calories E66.01 ; Alteration in mobility due to weakness R53.1 and Hypoxia R09.02 [facility] [address] [address]- 0352 March, Abdominal wall mass R19.00 [facility] [address] [address]- 6795 March, [facility] [address] [address]- 9516 March, Abdominal wall mass R19.00 ; Lower abdominal pain R10.30 ; Alteration in mobility due to weakness R53.1 ; Hypoxia R09.02 and Lymphedema I89.0 [facility] [address] [address]- 7250 Feb, [facility] [address] [address]- 8235 Feb, Acquired hypothyroidism E03.9 ; Dependence on machine for supplemental oxygen V46.2 ; Restless legs syndrome G25.81 ; Essential hypertension I10 ; Renal insufficiency N28.9 ; Chronic stasis dermatitis I83.10 ; Mixed hyperlipidemia E78.2 ; Other chronic pain 338.29 and Cellulitis of left lower extremity L03.116 [facility] [address] 08392- 4314 Feb, [facility] [address] 80021- 3707 Feb, [facility] [address] 49377 -4663 Feb, Shortness of breath R06.02 and Bronchitis J40 [place] [address] 44354- 5246 Jan, Dependence on supplemental oxygen Z99.81 [place] [address] 39075- 1560 Jan, [place] [address] 08040- 5130 Dec, [place] [address] 32409- 4185 Dec, [place] [address] 77083- 8951 Nov, Osteoarthritis of knees, bilateral M17.0 [place] [address] 46391- 7572 Nov, Dependence on machine for supplemental oxygen V46.2 ; Nocturnal hypoxia G47.34 and Urgency of urination R39.15 [place] [address] 99336- 7583 Nov, [place] [address] 37237- 8679 Oct, Pain in right knee M25.561 and Pain in left knee M25.562 [place] [address] 80563- 6227 Oct, Acquired hypothyroidism E03.9 ; Renal insufficiency N28.9 and Chronic stasis dermatitis I83.10 [place] [address] 75889- 5333 Oct, [place] [address] 42631- 1048 Sep, Cellulitis L03.90 ; Left knee pain M25.562 ; Essential hypertension I10 ; Lymphedema I89.0 ; Lumbar pain M54.5 ; Morbid obesity due to excess calories E66.01 and Renal insufficiency N28.9 [place] [address] 05003- 8741 Sep, Cellulitis L03.90 and Lymphedema I89.0 [place] [address] 64397- 9520 Sep, [place] [address] 16353- 0201 Sep, [place] [address] 52163- 2764 Sep, Left knee pain M25.562 ; Lumbar pain M54.5 ; Restless legs syndrome G25.81 ; Acquired hypothyroidism E03.9 and Essential hypertension I10 [place] [id number] [place] [address] 98020- 4228 Jul, [place] [address] 97721- 6223 Jun, [place] [address] 07700- 6973 May, [place] [address] 81033- 0021 May, [place] [address] 05179- 1225 May, Hypertension 997.91 ; Restless legs syndrome [RLS] 333.94 ; Unspecified venous (peripheral) insufficiency 459.81 ; Unspecified hypothyroidism 244.9 and Other chronic pain 338.29 [facility] [address] [address]- 7657 Apr, [facility] [id number] [place] [address] 193864- 1925 Apr, [facility] [id number] 6595 Apr, Restless legs syndrome [RLS] 333.94 ; Shortness of breath 786.05 ; Unspecified venous (peripheral) insufficiency 459.81 ; Unspecified hypothyroidism 244.9 ; Obesity, unspecified 278.00 ; Other chronic pain 338.29 ; Hypertension 997.91 and Hyperlipidemia 272.4 [facility] [id number] [place] [address] 30461- 4524 Feb, [facility] [id number] [place] [address] 90203- 2138 Feb, [facility] [id number] [place] [address] 13974- 0482 Jan, [facility] [id number] [place] [address] 71005- 2202 Jan, [facility] [id number] [place] [address] 28282- 0184 Jan, [facility] [address] [address]- 8145 Jan, [facility] [address] [address]- 1325 Jan, [facility] [address] [address]- 7124 Jan, [facility] [id number] [place] [address] 28634- 7070 Jan, [facility] [address] 7471 Jan, [facility] [id number] [place] [address] 39498- 5723 Jan, [facility] [place] [facility] [address] [id number] [place] [address]- 8273 Jan, [facility] [place] [facility] [address] [id number] [place] [address]- 0845 Jan, [facility] [place] [facility] [address] [id number] [place] [address]- 1718 Jan, [facility] [place] [facility] [address] [id number] [place] [address]- 9515 Jan, [facility] [place] [facility] [address] [id number] [place] [address]- 6061 Jan, [facility] [place] [facility] [address] [id number] [place] [address]- 8186 Dec, [facility] [place] [facility] [address] [id number] [place] [address]- 6180 Dec, [facility] [place] [facility] [address] [id number] [place] [address]- 7019 Nov, [facility] [place] [facility] [address] [id number] [place] [address]- 6510 Nov, [facility] [place] [facility] [address] [id number] [place] [address]- 2129 Nov, [facility] [place] [facility] [address] [id number] [place] [address]- 4069 Nov, [facility] [place] [facility] [address] [id number] [place] [address]- 2224 Nov, [facility] [place] [facility] [address] [id number] [place] [address]- 2373 Nov, [facility] [place] [facility] [address] [id number] [place] [address]- 2393 Nov, [facility] [place] [facility] [address] [id number] [place] [address]- 8722 Nov, [facility] [place] [facility] [address] [id number] [place] [address]- 0661 Nov, [facility] [place] [facility] [address] [id number] [place] [address]- 3758 Nov, [facility] [place] [facility] [address] [id number] [place] [address]- 0040 Nov, [facility] [place] [facility] [address] [id number] [place] [address]- 8906 Nov, [facility] [place] [facility] [address] [id number] [place] [address]- 4985 Nov, [facility] [place] [facility] [address] [id number] [place] [address]- 8079 Nov, [facility] [place] [facility] [address] [id number] [place] [address]- 4412 Nov, [facility] [place] [facility] [address] [id number] [place] [address]- 1292 Nov, [facility] [place] [facility] [address] [id number] [place] [address]- 8288 Oct, [facility] [place] [facility] [address] [id number] [place] [address] Oct, [facility] [place] [facility] [address] [id number] [place] [address] Sep, [facility] [place] [facility] [address] [id number] [place] [address] Aug, [facility] [place] [facility] [address] [id number] [place] [address] Aug, [facility] [place] [facility] [address] [id number] [place] [address] Aug, [facility] [place] [facility] [address] [id number] [place] [address] Aug, [facility] [place] [facility] [address] [id number] [place] [address] Aug, [facility] [place] [facility] [address] [id number] [place] [address] Aug, [facility] [place] [facility] [address] [id number] [place] [address] Aug, [facility] [place] [facility] [address] [id number] [place] [address] Aug, [facility] [place] [facility] [address] [id number] [place] [address] Aug, [facility] [place] [facility] [address] [id number] [place] [address] Aug, [facility] [place] [facility] [address] [id number] [place] [address] Jun, [facility] [place] [facility] [address] [id number] [place] [address] Jun, [facility] [place] [facility] [address] [id number] [place] [address] Jun, [facility] [place] [facility] [address] [id number] [place] [address] Jun, [facility] [place] [facility] [address] [id number] [place] [address] Jun, [facility] [place] [facility] [address] [id number] [place] [address] Jun, [facility] [place] [facility] [address] [id number] [place] [address] Jun, [facility] [place] [facility] [address] [id number] [place] [address] Jun, [facility] [place] [facility] [address] [id number] [place] [address] Jun, [facility] [place] [facility] [address] [id number] [place] [address] Jun, [facility] [place] [facility] [address] [id number] [place] [address] May, 2013 [facility] [place] [facility] [address] [id number] [place] [address] May, 2013 [facility] [place] [facility] [address] [id number] [place] [address] May, 2013 [facility] [place] [facility] [address] [id number] [place] [address] May, 2013 [facility] [place] [facility] [address] [id number] [place] [address] May, 2013 [facility] [place] [facility] [address] [id number] [place] [address] May, [facility] [place] [facility] [address] [id number] [place] [address] May, [facility] [place] [facility] [address] [id number] [place] [address] May, 2013 [facility] [place] [facility] [address] [id number] [place] [address] May, 2013 [facility] [place] [facility] [address] [address] [id number] [place] [address] May, 2013 [facility] [place] [facility] [address] [id number] [place] [address] May, 2013 [facility] [place] [facility] [address] [id number] [place] [address] 69[address] May, 2013 [facility] [place] [facility] [address] [id number] [place] [address] 0801 May, 2013 [facility] [place] [facility] [address] [id number] [place] [address] 3491 May, 2013 [facility] [place] [facility] [address] [id number] [place] [address] 9329 May, 2013 [facility] [place] [facility] [address] [id number] [place] [address] 4598 May, [facility] [place] [facility] [address] [id number] [place] [address]- 6582 May, [facility] [place] [facility] [address] [id number] [place] [address] 2282 May, [facility] [place] [facility] [address] [id number] [place] [address] 1709 Apr, [facility] [place] [facility] [address] [id number] [place] [address]- 6762 Apr, [facility] [place] [facility] [address] [id number] [place] [address] 3547 Apr, [facility] [place] [facility] [address] [id number] [place] [address]- 0646 Apr, [facility] [place] [facility] [address] [id number] [place] [address]- 6267 Apr, [facility] [place] [facility] [address] [id number] [place] [address]- 3804 Apr, [facility] [place] [facility] [address] [id number] [place] [address]- 7417 Apr, [facility] [place] [facility] [address] [id number] [place] [address]- 7893 Apr, [facility] [place] [facility] [address] [id number] [place] [address]- 1084 Apr, [facility] [place] [facility] [address] [id number] [place] [address]- 5259 Apr, [facility] [place] [facility] [address] [id number] [place] [address]- 0961 Apr, [facility] [place] [facility] [address] [id number] [place] [address]- 7109 Apr, [facility] [place] [facility] [address] [id number] [place] [address] 3994 March, [facility] [place] [facility] [address] [id number] [place] [address]- 6516 March, [facility] [place] [facility] [address] [id number] [place] [address]- 3552 March, [facility] [place] [facility] [address] [id number] [place] [address]- 2802 March, [facility] [place] [facility] [address] [id number] [place] [address]- 7508 March, [facility] [place] [facility] [address] [id number] [place] [address]- 0280 March, [facility] [place] [facility] [address] [id number] [place] [address]- 1283 March, [facility] [place] [facility] [address] [id number] [place] [address]- 5225 March, [facility] [place] [facility] [address] [id number] [place] [address]- 2553 March, [facility] [place] [facility] [address] [id number] [place] [address]- 9227 March, [facility] [place] [facility] [address] [id number] [place] [address]- 3330 March, [facility] [place] [facility] [address] [id number] [place] [address]- 8341 Feb, [facility] [place] [facility] [address] [id number] [place] [address]- 2967 Feb, [facility] [place] [facility] [address] [id number] [place] [address]- 0373 Feb, [facility] [place] [facility] [address] [id number] [place] [address]- 3205 Feb, [facility] [place] [facility] [address] [id number] [place] [address]- 8213 Feb, [facility] [place] [facility] [address] [id number] [place] [address]- 2430 Feb, [facility] [place] [facility] [address] [id number] [place] [address]- 5153 Feb, [facility] [address] [id number] [place] [address]- 2481 Feb, [facility] [place] [facility] [address] [id number] [place] [address]- 6063 Feb, [facility] [address] [id number] [place] [address]- 2858 Feb, [facility] [place] [facility] [address] [id number] [place] [address]- 6315 Feb, [facility] [address] [id number] [place] [address]- 1273 Feb, [facility] [place] [facility] [address] [id number] [place] [address]- 5016 Feb, [facility] [place] [facility] [address] [id number] [place] [address]- 4240 Feb, [facility] [address] [id number] [place] [address]- 9129 Feb, [facility] [place] [facility] [address] [id number] [place] [address]- 2239 Feb, [facility] [address] [id number] [place] [address]- 0627 Feb, [facility] [place] [facility] [address] [id number] [place] [address]- 1760 Feb, [facility] [place] [facility] [address] [id number] [place] [address]- 3753 Feb, [facility] [place] [facility] [address] [id number] [place] [address]- 6939 Feb, [facility] [place] [facility] [address] [id number] [place] [address]- 7266 Jan, [facility] [place] [facility] [address] [id number] [place] [address]- 1721 Jan, [facility] [place] [facility] [address] [id number] [place] [address]- 0690 Jan, [facility] [place] [facility] [address] [id number] [place] [address]- 3042 Jan, [facility] [place] [facility] [address] [id number] [place] [address]- 7695 Jan, [facility] [place] [facility] [address] [id number] [place] [address]- 1564 24 Jan, 2014 [facility] [place] [facility] [address] [id number] [place] [address]- 0350 18 Jan, 2014 [facility] [place] [facility] [address] [id number] [place] [address]- 1411 18 Jan, 2014 [facility] [place] [facility] [address] [id number] [place] [address]- 0792 14 Jan, 2014 [facility] [place] [facility] [address] [id number] [place] [address]- 3072 14 Jan, 2014 [facility] [place] [facility] [address] [id number] [place] [address]- 6223 Jan, [facility] [place] [facility] [address] [id number] [place] [address]- 7678 Jan, [facility] [place] [facility] [address] [id number] [place] [address]- 6663 Jan, [facility] [place] [facility] [address] [id number] [place] [address]- 0178 05 Jan, 2014 [facility] [place] [facility] [address] [id number] [place] [address]- 9433 Dec, [facility] [place] [facility] [address] [id number] [place] [address]- 1168 Dec, [facility] [place] [facility] [address] [id number] [place] [address]- 7416 Dec, [facility] [place] [facility] [address] [id number] [place] [address]- 1953 Dec, [facility] [address] [id number] [place] [address]- 6536 Dec, [facility] [place] [facility] [address] [id number] [place] [address] 2546 Dec, [facility] [place] [facility] [address] [id number] [place] [address]- 7956 Dec, [facility] [place] [facility] [address] [id number] [place] [address]- 2596 Dec, [facility] [place] [facility] [address] [id number] [place] [address]- 7246 Dec, [facility] [place] [facility] [address] [id number] [place] [address]- 9527 Nov, [facility] [place] [facility] [address] [id number] [place] [address]- 2517 Nov, [facility] [address] [id number] [place] [address]- 7974 Nov, [facility] [place] [facility] [address] [id number] [place] [address]- 7750 Nov, [facility] [address] [id number] [place] [address]- 8836 Oct, [facility] [place] [facility] [address] [id number] [place] [address] 2549 Oct, [facility] [place] [facility] [address] [id number] [place] [address] 2542 Oct, [facility] [place] [facility] [address] [id number] [place] [address]- 2626 Oct, [facility] [place] [facility] [address] [id number] [place] [address]- 2546 Oct, [facility] [place] [facility] [address] [id number] [place] [address] [address] Oct, [facility] [address] [id number] [place] [address]- 4392 23 Oct, 2013 [facility] [place] [facility] [address] [id number] [place] [address]- 1865 23 Oct, 2013 [facility] [address] [id number] [place] [address]- 5938 20 Oct, 2013 [facility] [place] [facility] [address] [id number] [place] [address]- 2073 19 Oct, 2013 [facility] [address] [id number] [place] [address]- 5865 19 Oct, 2013 [facility] [address] [id number] [place] [address]- 2223 18 Oct, 2013 [facility] [address] [id number] [place] [address]- 7372 18 Oct, 2013 [facility] [address] [id number] [place] [address]- 6003 17 Oct, 2013 [facility] [place] [facility] [address] [id number] [place] [address]- 1051 17 Oct, 2013 [facility] [place] [facility] [address] [id number] [place] [address]- 9368 17 Oct, 2013 [facility] [place] [facility] [address] [id number] [place] [address]- 0033 17 Oct, 2013 [facility] [place] [facility] [address] [id number] [place] [address]- 0568 17 Oct, 2013 [facility] [place] [facility] [address] [id number] [place] [address]- 9945 17 Oct, 2013 [facility] [place] [facility] [address] [id number] [place] [address]- 7947 11 Oct, 2013 [facility] [place] [facility] [address] [id number] [place] [address]- 4796 11 Oct, 2013 [facility] [place] [facility] [address] [id number] [place] [address]- 1398 Sep, [facility] [place] [facility] [address] [id number] [place] [address]- 0050 Sep, [facility] [place] [facility] [address] [id number] [place] [address]- 8527 Sep, [facility] [place] [facility] [address] [id number] [place] [address]- 8991 Sep, [facility] [place] [facility] [address] [id number] [place] [address]- 7899 18 Sep, 2013 [facility] [place] [facility] [address] [id number] [place] [address]- 0365 Sep, [facility] [place] [facility] [address] [id number] [place] [address]- 4827 Sep, [facility] [place] [facility] [address] [id number] [place] [address]- 0425 Sep, [facility] [place] [facility] [address] [id number] [place] [address]- 8967 Sep, [facility] [place] [facility] [address] [id number] [place] [address]- 8935 Sep, [facility] [place] [facility] [address] [facility] [id number] [place] [address]- 5527 Sep, [facility] [place] [facility] [address] [id number] [place] [address]- 3332 Sep, [facility] [place] [facility] [address] [id number] [place] [address]- 9460 Aug, [facility] [place] [facility] [address] [id number] [place] [address]- 3659 Aug, [facility] [place] [facility] [address] [id number] [place] [address]- 2064 Aug, [facility] [place] [facility] [address] [id number] [place] [address]- 4356 Aug, [facility] [place] [facility] [address] [id number] [place] [address]- 9784 Aug, 2012 [facility] [place] [facility] [address] [id number] [place] [address]- 4943 Aug, 2012 [facility] [place] [facility] [address] [id number] [place] [address]- 8976 Aug, 2012 [facility] [place] [facility] [address] [id number] [place] [address]- 6537 Aug, 2012 [facility] [place] [facility] [address] [id number] [place] [address]- 6780 Aug, 2012 [facility] [place] [facility] [address] [id number] [place] [address]- 6039 16 Aug, 2012 [facility] [place] [facility] [address] [id number] [place] [address]- 9328 Aug, [facility] [place] [facility] [address] [id number] [place] [address]- 1422 10 Aug, 2013 [facility] [place] [facility] [address] [id number] [place] [address]- 1626 08 Aug, 2013 [facility] [place] [facility] [address] [id number] [place] [address]- 6031 07 Aug, 2013 [facility] [place] [facility] [address] [id number] [place] [address]- 4564 04 Aug, 2013 [facility] [place] [facility] [address] [id number] [place] [address]- 0563 Aug, [facility] [place] [facility] [address] [id number] [place] [address]- 1192 Aug, [facility] [place] [facility] [address] [id number] [place] [address]- 7548 Jul, [facility] [place] [facility] [address] [id number] [place] [address]- 6495 Jun, [facility] [place] [facility] [address] [id number] [place] [address]- 5153 Jun, [facility] [place] [facility] [address] [id number] [place] [address]- 7968 May, [facility] [place] [facility] [address] [id number] [place] [address]- 2578 May, [facility] [place] [facility] [address] [id number] [place] [address]- 6035 Apr, [facility] [place] [facility] [address] [id number] [place] [address]- 2296 Apr, [facility] [place] [facility] [address] [id number] [place] [address]- 6066 Apr, [facility] [place] [facility] [address] [id number] [place] [address]- 5166 Apr, [facility] [place] [facility] [address] [id number] [place] [address]- 2297 Apr, [facility] [place] [facility] [address] [id number] [place] [address]- 6529 Apr, [facility] [place] [facility] [address] [id number] [place] [address]- 5851 Apr, [facility] [place] [facility] [address] [id number] [place] [address]- 2646 Apr, [facility] [place] [facility] [address] [id number] [place] [address]- 6721 Apr, [facility] [place] [facility] [address] [id number] [place] [address]- 2616 Apr, [facility] [place] [facility] [address] [id number] [place] [address]- 7929 Apr, [facility] [place] [facility] [address] [id number] [place] [address]- 4816 March, [facility] [place] [facility] [address] [id number] [place] [address]- 4161 March, [facility] [place] [facility] [address] [id number] [place] [address]- 1306 March, [facility] [address] [id number] [place] [address]- 3636 March, [facility] [address] [id number] [place] [address] 2546 March, [facility] [address] [id number] [place] [address]- 4377 Feb, [facility] [address] [id number] [place] [address]- 0991 Feb, [facility] [address] [id number] [place] [address]- 8354 Jan, [facility] [address] [id number] [place] [address]- 2588 Jan, [facility] [address] [id number] [place] [address]- 1629 Jan, [facility] [address] [id number] [place] [address]- 6727 Jan, [facility] [address] [id number] [place] [address]- 4934 Jan, [facility] [address] [id number] [place] [address]- 6755 Dec, [facility] [address] [id number] [place] [address]- 8613 Dec, [facility] [address] [id number] [place] [address]- 7944 Nov, [facility] [address] [id number] [place] [address]- 2080 Nov, [facility] [address] [id number] [place] [address]- 2546 Nov, [facility] [address] [id number] [place] 16 Nov, 2012 [facility] [address] [id number] [place] [address]- 5973 15 Nov, 2012 [facility] [place] [facility] [address] [id number] [place] [address]- 9031 14 Nov, 2012 [facility] [place] [facility] [address] [id number] [place] [address]- 4169 14 Nov, 2012 [facility] [place] [facility] [address] [id number] [place] [address]- 1123 Nov, [facility] [place] [facility] [address] [id number] [place] [address]- 4746 Nov, [facility] [place] [facility] [address] [id number] [place] [address]- 6117 Nov, [facility] [place] [facility] [address] [id number] [place] [address]- 1702 Nov, [facility] [place] [facility] [address] [id number] [place] [address]- 4274 Oct, [facility] [place] [facility] [address] [id number] [place] [address]- 3514 Oct, [facility] [place] [facility] [address] [id number] [place] [address]- 3607 Sep, [facility] [place] [facility] [address] [id number] [place] [address]- 6619 Sep, [facility] [place] [facility] [address] [id number] [place] [address]- 6464 13 Sep, 2012 [facility] [place] [facility] [address] [id number] [place] [address]- 5375 Sep, [facility] [place] [facility] [address] [id number] [place] [address]- 0117 Sep, [facility] [place] [facility] [address] [id number] [place] [address]- 7846 Sep, [facility] [place] [facility] [address] [id number] [place] [address]- 3789 Sep, [facility] [place] [facility] [address] [id number] [place] [address]- 5419 Sep, [facility] [place] [facility] [address] [facility] [id number] [place] [address]- 2990 Sep, [facility] [place] [facility] [address] [facility] [id number] [place] [address]- 3802 Sep, [facility] [place] [facility] [address] [facility] [id number] [place] [address]- 0106 Sep, [facility] [place] [facility] [address] [facility] [id number] [place] [address], [place] [address]- 6720 Sep, [facility] [place] [facility] [address] [facility] [id number] [place] [address]- 4380 Sep, [facility] [place] [facility] [id number] [place] [address]- 8465 Sep, [facility] [place] [facility] [address] [facility] [id number] [place] [address]- 1440 Aug, [facility] [place] [facility] [address] [id number] [place] [address]- 2812 Aug, [facility] [place] [facility] [address] [id number] [place] [address]- 5670 Aug, [facility] [place] [facility] [address] [facility] [id number] [place] [address] Aug, [facility] [address] [facility] [id number] [place] [address] Aug, [facility] [address] [facility] [id number] [place] [address] Aug, [facility] [address] [facility] [id number] [place] [address] Aug, [facility] [address] [id number] [address] Aug, [facility] [address] [facility] [id number] [place] [address] Aug, [facility] [address] [facility] [id number] [place] [address] Aug, [facility] [address] [facility] [id number] [place] [address] Aug, [facility] [address] [facility] [id number] [place] Aug, [facility] [address] [id number] [place] [address] Aug, [facility] [address] [facility] [id number] [place] [address] Aug, [facility] [address] [facility] [id number] [place] [address] Aug, [facility] [address] [facility] [id number] [place] [address] Aug, [facility] [address] [facility] [id number] [place] [address] Aug, [facility] [address] [facility] [id number] [place] [address] Jul, [facility] [address] [facility] [id number] [place] [address] Jun, [facility] [address] [facility] [id number] [place] [address] Aug, [facility] [address] [facility] [id number] [place] [address] Aug, [facility] [address] [facility] [id number] [place] [address] Aug, IMMUNIZATIONS No Known Immunizations SOCIAL HISTORY Never Assessed REASON FOR VISIT hospital admit/DC PLAN OF CARE VITAL SIGNS MEDICATIONS Medication Instructions Dosage Frequency Start Date End Date Duration Status Neurontin 300 MG Orally Once a day at night 1 capsule 30 Active Simvastatin 20 mg Orally at bedtime 1 tablet Active Wheelchair 1 as directed March, Active Cyclobenzaprine HCl 10 mg Orally at bedtime 1 tablet Active Triamcinolone Acetonide 0.1 % APPLY TO AFFECTED AREA TWICE DAILY FOR 10 DAYS 10 Not-Taking Protonix 40 mg Orally Once a day 1 tablet 24h Jan, 30 day(s) Not-Taking Cymbalta 60 MG TAKE ONE CAPSULE BY MOUTH ONCE DAILY 30 Active Levothyroxine Sodium 75 MCG Orally Once a day 1 tablet on an empty stomach in the morning 24h Active Clopidogrel Bisulfate 75 MG Orally Once a day 1 tablet 24h Active Metolazone 2.5 MG Orally Once a day 1 tablet 24h Active Ropinirole HCl 4 MG Orally Once a day 1 tablet 1 to 3 hours before bedtime 24h 30 Active Incontinence Supplies - Depends brief-size requested by patient 8h Apr Active Proventil HFA 108 (90 Base) MCG/ACT INHALE TWO PUFFS BY MOUTH EVERY 4 TO 6 HOURS NEEDED FOR COUGH OR WHEEZE 17 Active Mupirocin 2 % Externally every other day 1 application to affected area Active Potassium Chloride ER 20 MEQ TAKE ONE TABLET BY MOUTH ONCE DAILY WITH FOOD 30 Active Entresto 24-26 MG Orally Twice a day 1 tablet 12h Active Omeprazole 20 MG Orally Once a day 1 capsule 24h Active Metoprolol Tartrate 50 MG Orally Twice a day 1 tablet with food 12h Active Aspirin 81 81 MG Orally Once a day 1 tablet 24h Active RESULTS No Results PROCEDURES No Known [...] surgery 08/16/2016 Hospitalization History Chest pain, CAD, HTN-[facility] 05/14/17 Hospitalization History chest pain, edema-[facility] 05/04/18
--- OUTSIDE RECORDS SUMMARY | 2018-09-08 15:09 | XMS REPORT ---
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 Active 30820748 Problem Urge incontinence of urine N39.41 Active 62414868 Problem Dependence on supplemental oxygen Z99.81 Active 628374799815 Problem Other chronic pain G89.29 Active 93145325 Problem Restless legs syndrome G25.81 Active 912414067 Problem Chronic systolic heart failure I50.22 Active 048793311 Problem Chronic pain syndrome G89.4 Active 005326704 Problem Gastroesophageal reflux disease without esophagitis K21.9 Active 719065655 Problem Morbid obesity E66.01 Active 784568940 Problem Morbid (severe) obesity due to excess calories E66.01 Active 970614053 Problem Lumbar pain M54.5 Active 672066613 Problem Chronic stasis dermatitis I83.10 Active 37863861 Problem Essential hypertension I10 Active 12084555 Problem Acquired hypothyroidism E03.9 Active 292585431 Problem Nocturnal hypoxia G47.34 Active 316393862 Problem Mixed hyperlipidemia E78.2 Active 329883836 Problem Renal insufficiency N28.9 Active 750341376 Problem Edema of both legs R60.0 Active 714043062 Problem Lymphedema I89.0 Active 835437774 Problem Stasis dermatitis without varicosities I87.2 Active 67283347 ALLERGIES No Information ENCOUNTERS Encounter Location Date Diagnosis [facility] [id number], [place] [address] Jun, [facility] [id number], [place] [address] 7529 May, [facility] [id number], [place] [address] 9846 May, [facility] [id number] [place] [address] 01303- 9451 19 Apr, 2018 Essential hypertension I10 ; Chronic systolic heart failure I50.22 ; Pain in right knee M25.561 ; Pain in left knee M25.562 ; Other chronic pain G89.29 ; Mixed hyperlipidemia E78.2 ; Morbid obesity E66.01 and Body mass index (BMI) 70 or greater, adult Z68.45 [facility] [id number] [place] [address] 62819- 3451 18 Apr, 2018 [facility] [id number] [place] [address] 00031- 2300 Apr, Acquired hypothyroidism E03.9 [facility] [id number] [place] [address] 37186- 8363 Apr, Acquired hypothyroidism E03.9 [facility] [id number] [place] [address] 51109- 7857 Apr, [facility] [id number] [place] [address] 41249- 1868 Apr, [facility] [id number] [place] [address] 58844- 7428 Apr, Acquired hypothyroidism E03.9 ; Morbid (severe) obesity due to excess calories E66.01 ; Body mass index (BMI) 70 or greater, adult Z68.45 ; Restless legs syndrome G25.81 ; Essential hypertension I10 and Lymphedema I89.0 [facility] [id number] [place] [address] 55363- 4823 Feb, [facility] [id number] [place] [address] 74517- 7421 Jan, [facility] [id number] [place] [address] 19957- 5235 Jan, [facility] [id number] [place] [address] 41010- 3430 Jan, Acquired hypothyroidism E03.9 ; Morbid (severe) obesity due to excess calories E66.01 ; Body mass index (BMI) 70 or greater, adult Z68.45 ; Cellulitis of left anterior lower leg L03.116 ; Restless legs syndrome G25.81 ; Nocturnal hypoxia G47.34 and Dependence on supplemental oxygen Z99.81 [facility] [id number] [place] [address] 88241- 5223 Jan, [facility] [id number] [place] [address] 28724- 1673 Dec, [facility] [address] 98394- 7752 Oct, [facility] [address] 29809- 7008 Oct, [facility] [address] 08244- 1247 Sep, [facility] [id number] [place] [address] 74981- 4907 Sep, [facility] [address] 15895- 9929 Sep, Dental examination Z01.20 [facility] [id number] [place] [address] 15072- 8225 Sep, Morbid obesity due to excess calories E66.01 ; Body mass index (BMI) of 70 or greater in adult Z68.45 ; Stasis dermatitis without varicosities I87.2 ; Lymphedema I89.0 ; Renal insufficiency N28.9 ; Acquired hypothyroidism E03.9 ; Cellulitis L03.90 ; Bronchitis J40 and BMI 40.0-44.9, adult Z68.41 [facility] [id number] [place] [address] 52373- 2658 Aug, [facility] [id number] [place] [address] [id number] Aug, Dental examination Z01.20 [facility] [id number] [place] [address] 87764- 5233 Aug, [facility] [id number] [place] [address] 82647- 7006 Jul, [facility] [id number] [place] [address] 23877- 7175 Jul, [facility] [address] 88034- 7197 18 Jul, 2017 [facility] [id number] [place] [address] 83393- 9632 Jul, [facility] [id number] [place] [address] 68635- 3432 Jul, [facility] [id number] [place] [address] 59883- 8045 Jun, [facility] [id number] [place] [address] 58388- 8612 Jun, Dependence on nocturnal oxygen therapy Z99.81 ; Morbid obesity due to excess calories E66.01 and Bronchitis J40 [facility] [id number] [place] [address] 33924- 4753 Jun, Restless legs syndrome G25.81 [facility] [id number] [place] [address] 60767- 1405 Jun, [facility] [id number] [place] [address] 52107- 2723 May, [facility] [id number] [place] [address] [id number] Apr, [facility] [id number] [place] [address] 01527- 1242 Apr, [facility] [id number] [place] [address] 92723- 3030 Apr, Essential hypertension I10 [facility] [id number] [place] [address] 74785- 1063 Apr, [id number] [place] [address] 22804- 3262 Apr, Chronic pain syndrome G89.4 and Urge incontinence of urine N39.41 [facility] [id number] [place] [address] 76064- 6888 March, Acquired hypothyroidism E03.9 [facility] [id number] [place] [address] 07699- 7435 March, [facility] [id number] [place] [address] 42416- 6455 March, [facility] [id number] [place] [address] 49260- 0084 March, Chronic pain syndrome G89.4 ; Essential [...] and Screening breast examination Z12.39 [facility] [id number] [place] [address] 41461- 2680 March, [facility] [id number] [place] [address] 53604- 8585 Feb, [facility] [id number] [place] [address] 24486- 7847 Feb, [facility] [id number] [place] [address] 89787- 7651 Feb, Chronic pain syndrome G89.4 [facility] [id number] [place] [address] 52044 -8725 Feb, Right foot pain M79.671 and Right foot sprain, initial encounter S93.601A [facility] [id number] [address]- 3442 Jan, [facility] [id number] [place] [address] 64184- 0996 Jan, [facility] [id number] [place] [address] 00363- 4426 Jan, Chronic pain syndrome G89.4 [facility] [id number] [place] [address] 49904- 2118 Jan, [facility] [id number] [place] [address] 57356- 5440 Dec, [facility] [id number] [place] [address] 21875- 1594 Dec, [facility] [id number] [place] [address] 95028- 6385 Dec, Pain in right knee M25.561 ; Pain in left knee M25.562 ; Essential hypertension I10 ; Chronic stasis dermatitis I83.10 ; Restless legs syndrome G25.81 ; Acquired hypothyroidism E03.9 ; Dependence on nocturnal oxygen therapy Z99.81 ; Mixed hyperlipidemia E78.2 ; Lymphedema I89.0 ; Chronic pain syndrome G89.4 ; Gastroesophageal reflux disease without esophagitis K21.9 and Urge incontinence of urine N39.41 [facility] [address], [place] [address]- 1522 Nov, Mixed hyperlipidemia E78.2 [facility] [id number] [place] [address] 84801- 1001 Nov, [facility] [address], [place] [address]- 6676 Nov, [facility] [id number] [place] [address] 17357- 7833 Nov, [facility] [address], [place] [address] -0837 Nov, Stasis ulcer, left I83.029 [facility] [address], [place] [address]- 2019 Nov, [facility] [address], [place] [address]- 4625 Oct, [facility] [address], [place] [address]- 6842 Oct, [facility] [address], [place] [address]- 8695 Oct, [facility] [address], [place] [address]- 6136 Sep, [facility] [address], [place] [address]- 0568 Sep, [id number] [id number] Sep, [facility] [address], [place] [address]- 1498 Aug, [facility] [address], [place] [address]- 2741 Jul, [facility] [address], [place] [address]- 4281 Jul, [facility] [id number], [place] [address]- 9766 Jul, [facility] [address], [place] [address]- 8759 Jul, [facility] [id number], [place] [address]- 3163 Jul, Chest pain, unspecified type R07.9 ; Dyspnea on exertion R06.09 ; Essential hypertension I10 ; Hyperlipidemia, unspecified hyperlipidemia type E78.5 ; Left bundle branch block I44.7 and Hypothyroidism, unspecified type E03.9 [facility] [id number], [place] [address]63 Jun, Fever, unspecified fever cause R50.9 ; Headache, unspecified headache type R51 ; SOB (shortness of breath) R06.02 and Strep pharyngitis J02.0 [address] [address] 69398- 9585 Jun, [facility] [facility] [address] 03938- 9403 Jun, [address] [address] 20352- 6914 Jun, Essential hypertension I10 ; Mixed hyperlipidemia E78.2 and Acquired hypothyroidism E03.9 [facility] [facility] [address] 04086- 9326 Jun, Edema of both legs R60.0 ; Hypoxia R09.02 and Essential hypertension I10 [facility] [facility] [address] 18627- 9627 Jun, [address] [facility] [address] 70456- 1106 Jun, Edema of both legs R60.0 ; Hypoxia R09.02 and Essential hypertension I10 [address] [facility] [address] 36173- 8361 Jun, Essential hypertension I10 ; Dependence on supplemental oxygen Z99.81 and Edema of both legs R60.0 [facility] [facility] [address] 98057- 7535 May, Lumbar pain M54.5 ; Essential hypertension I10 ; Edema of both legs R60.0 ; Stasis dermatitis without varicosities I87.2 and Left knee pain M25.562 [facility] [facility] [address] 13605- 7854 May, [address] [address] 12942- 3816 May, [address] [address] 16312- 2100 May, [facility] [id number] [place] [address] 69737- 8770 Apr, [facility] [id number] [place] [address] 95479- 9777 Apr, [facility] [id number] [place] [address] 48835- 9709 March, [facility] [id number] [place] [address] 20844- 1968 March, Lymphedema I89.0 ; Morbid obesity due to excess calories E66.01 ; Alteration in mobility due to weakness R53.1 and Hypoxia R09.02 [facility] [id number] [place] [address] 59833- 9879 March, Abdominal wall mass R19.00 [facility] [id number] [place] [address] 38109- 7234 March, [facility] [id number] [place] [address] 00164- 4499 March, Abdominal wall mass R19.00 ; Lower abdominal pain R10.30 ; Alteration in mobility due to weakness R53.1 ; Hypoxia R09.02 and Lymphedema I89.0 [facility] [facility] [id number] [place] [address] 98023- 1187 Feb, [facility] [facility] [id number] [place] [address] 69031- 2274 Feb, Acquired hypothyroidism E03.9 ; Dependence on machine for supplemental oxygen V46.2 ; Restless legs syndrome G25.81 ; Essential hypertension I10 ; Renal insufficiency N28.9 ; Chronic stasis dermatitis I83.10 ; Mixed hyperlipidemia E78.2 ; Other chronic pain 338.29 and Cellulitis of left lower extremity L03.116 [facility] [facility] [id number] [place] [address] 73852- 1178 Feb, [facility] [id number] [place] [address] 74752- 3201 Feb, [facility] [id number] [place] [address] 13516 -1525 Feb, Shortness of breath R06.02 and Bronchitis J40 [facility] [id number] [place] [address] 13457- 5037 Jan, Dependence on supplemental oxygen Z99.81 [address] [facility] [address] 45452- 5033 Jan, [place] [address] 46571- 5980 Dec, [place] [facility] [address] 10577- 0508 Dec, [place] [address] 91333- 7619 Nov, Osteoarthritis of knees, bilateral M17.0 [facility] [facility] [address] 43603- 7458 Nov, Dependence on machine for supplemental oxygen V46.2 ; Nocturnal hypoxia G47.34 and Urgency of urination R39.15 [facility] [facility] [id number] [place] [address] 06235- 5085 Nov, [facility] [facility] [id number] [place] [address] 24802- 3115 Oct, Pain in right knee M25.561 and Pain in left knee M25.562 [facility] [id number] [place] [address] 37191- 1115 Oct, Acquired hypothyroidism E03.9 ; Renal insufficiency N28.9 and Chronic stasis dermatitis I83.10 [facility] [facility] [id number] [place] [address] 83920- 6032 Oct, [facility] [facility] [id number] [place] [address] 98464- 7925 Sep, Cellulitis L03.90 ; Left knee pain M25.562 ; Essential hypertension I10 ; Lymphedema I89.0 ; Lumbar pain M54.5 ; Morbid obesity due to excess calories E66.01 and Renal insufficiency N28.9 [address] [address] 33738- 4841 Sep, Cellulitis L03.90 and Lymphedema I89.0 [place] [address] 35582- 1008 Sep, [place] [address] 23177- 8068 Sep, [place] [address] 27949- 6191 Sep, Left knee pain M25.562 ; Lumbar pain M54.5 ; Restless legs syndrome G25.81 ; Acquired hypothyroidism E03.9 and Essential hypertension I10 [facility] [facility] [address] 59725- 5029 Jul, [place] [facility] [address] 78395- 3413 Jun, [place] [facility] [address] 39663- 6835 May, [facility] [facility] [id number] [place] [address] 80618- 1128 May, [place] [facility] [address] 22665- 9935 May, Hypertension 997.91 ; Restless legs syndrome [RLS] 333.94 ; Unspecified venous (peripheral) insufficiency 459.81 ; Unspecified hypothyroidism 244.9 and Other chronic pain 338.29 [place] [facility] [address] 69771- 5630 Apr, [place] [address] 65414- 0449 Apr, [place] [address] [place] [address]- 9523 Apr, Restless legs syndrome [RLS] 333.94 ; Shortness of breath 786.05 ; Unspecified venous (peripheral) insufficiency 459.81 ; Unspecified hypothyroidism 244.9 ; Obesity, unspecified 278.00 ; Other chronic pain 338.29 ; Hypertension 997.91 and Hyperlipidemia 272.4 [facility] [address], [place] [address]- 5454 Feb, [facility] [id number] [place] [address] 542914- 4541 Feb, [facility] [id number] [place] [address] 92538- 2285 Jan, [facility] [id number] [place] [address] 32785784- 7352 Jan, [facility] [id number] [place] [address] 59789- 1026 Jan, [facility] [id number], [place] [address]- 8795 Jan, [facility] [id number], [place] [address]- 8541 Jan, [facility] [address], [place] [address]- 8446 Jan, [facility] [address], [place] [address]- 4557 Jan, [facility] [address] [address]- 8142 Jan, [facility] [id number] 8241 Jan, [facility] [address]- 8708 Jan, [facility] [address] 2461 Jan, [facility] [place] [facility] [address] [id number] [place] [address]- 3475 11 Jan, 2015 [facility] [place] [facility] [address] [id number] [place] [address]- 2716 Jan, [facility] [place] [facility] [address] [id number] [place] [address]- 5098 Jan, [facility] [place] [facility] [address] [id number] [place] [address]- 0446 Dec, [facility] [place] [facility] [address] [id number] [place] [address]- 3738 Dec, [facility] [place] [facility] [address] [id number] [place] [address]- 9768 Nov, [facility] [place] [facility] [address] [id number] [place] [address]- 6494 Nov, [facility] [place] [facility] [address] [id number] [place] [address]- 5180 Nov, [facility] [place] [facility] [address] [id number] [place] [address]- 6872 Nov, [facility] [place] [facility] [address] [id number] [place] [address]- 5943 Nov, [facility] [place] [facility] [address] [id number] [place] [address]- 6980 Nov, [facility] [place] [facility] [address] [id number] [place] [address]- 9235 Nov, [facility] [place] [facility] [address] [id number] [place] [address]- 7553 Nov, [facility] [place] [facility] [address] [id number] [place] [address]- 8620 Nov, [facility] [place] [facility] [address] [id number] [place] [address]- 9285 14 Nov, 2014 [facility] [place] [facility] [address] [id number] [address]- 8997 Nov, [facility] [place] [facility] [address] [id number] [place] [address]- 9424 Nov, [facility] [place] [facility] [address] [id number] [place] 3096 Nov, [facility] [place] [facility] [address] [id number] [place] [address]- 7218 Nov, [facility] [place] [facility] [address] [id number] [place] [address]- 3590 Nov, [facility] [place] [facility] [address] [id number] [place] [address]- 2974 Nov, [facility] [place] [facility] [address] [id number] [place] [address]- 8225 Oct, [facility] [place] [facility] [address] [id number] [place] [address]- 1316 Oct, [facility] [place] [facility] [address] [id number] [place] [address]- 7377 Sep, [facility] [place] [facility] [address] [id number] [place] [address]- 2861 Aug, [facility] [place] [facility] [address] [id number] [place] [address]- 9738 Aug, [facility] [place] [facility] [address] [id number] [address]- 8342 Aug, [facility] [place] [facility] [address] [id number], [place] [address]- 1310 Aug, [facility] [place] [facility] [address] [id number] [place] [address]- 2938 Aug, [facility] [place] [facility] [address] [id number] [place] [address]- 0212 Aug, [facility] [place] [facility] [address] [id number] [place] [address]- 5037 Aug, [facility] [place] [facility] [address] [id number] [place] [address]- 3944 Aug, [facility] [place] [facility] [address] [id number] [place] [address]- 8745 Aug, [facility] [place] [facility] [address] [id number] [place] [address]- 2392 Aug, [facility] [place] [facility] [address] [id number] [place] [address]- 6642 Jun, [facility] [place] [facility] [address] [id number] [place] [address]- 7649 Jun, [facility] [place] [facility] [address] [id number] [place] [address] Jun, [facility] [place] [facility] [address] [id number] [place] [address] Jun, [facility] [place] [facility] [address] [id number] [place] [address] Jun, [facility] [place] [facility] [address] [id number] [place] [address] Jun, [facility] [place] [facility] [address] [id number] [place] [address] Jun, [facility] [place] [facility] [address] [id number] [place] [address] Jun, [facility] [place] [facility] [address] [id number] [place] [address] Jun, [facility] [place] [facility] [address] [id number] [place] [address] Jun, [facility] [place] [facility] [address] [id number] [place] [address] May, [facility] [place] [facility] [address] [id number] [place] [address] May, [facility] [place] [facility] [address] [id number] [place] [address] May, [facility] [place] [facility] [address] [id number] [place] [address] May, 2013 [facility] [place] [facility] [address] [id number] [place] [address] May, 2013 [facility] [place] [facility] [address] [id number] [place] [address] May, 2013 [facility] [place] [facility] [address] [id number] [place] [address] May, 2013 [facility] [place] [facility] [address] [id number] [place] [address] May, 2013 [facility] [place] [facility] [address] [id number] [place] [address] May, 2013 [facility] [place] [facility] [address] [id number] [place] [address] 2018 May, 2013 [facility] [place] [facility] [address] [id number] [place] [address] May, 2013 [facility] [place] [facility] [address] [id number] [place] [address] May, 2013 [facility] [place] [facility] [address] [id number] [place] [address] May, [facility] [place] [facility] [address] [id number] [place] [address] May, 2013 [facility] [place] [facility] [address] [id number] [place] [address] May, [facility] [place] [facility] [address] [id number] [place] [address] May, 2013 [facility] [place] [facility] [address] [id number] [place] [address] May, [facility] [place] [facility] [address] [id number] [place] [address] May, 2013 [facility] [place] [facility] [address] [id number] [place] [address] Apr, [facility] [place] [facility] [address] [id number] [place] [address] Apr, [facility] [place] [facility] [address] [id number] [place] [address] Apr, [facility] [place] [facility] [address] [id number] [place] [address] Apr, [facility] [place] [facility] [address] [id number] [place] [address] Apr, [facility] [place] [facility] [address] [id number] [place] [address] Apr, [facility] [place] [facility] [address] [id number] [place] [address] 6994 Apr, [facility] [place] [facility] [address] [id number] [place] [address] 3339 Apr, [facility] [place] [facility] [address] [id number] [place] [address] 2154 Apr, [facility] [place] [facility] [address] [id number] [place] [address] 0634 Apr, [facility] [place] [facility] [address] [id number] [place] [address] 6198 Apr, [facility] [place] [facility] [address] [id number] [place] [address] 6992 Apr, [facility] [place] [facility] [address] [id number] [place] [address] 9470 March, [facility] [place] [facility] [address] [id number] [place] [address] 5340 March, [facility] [place] [facility] [address] [id number] [place] [address] 5331 March, [facility] [place] [facility] [address] [id number] [place] [address] 0528 March, [facility] [place] [facility] [address] [id number] [place] [address] 6233 March, [facility] [place] [facility] [address] [id number] [place] [address] 0109 March, [facility] [place] [facility] [address] [id number] [place] [address] 9176 March, [facility] [place] [facility] [address] [id number] [place] [address]- 5258 March, [facility] [place] [facility] [address] [id number] [place] [address] 7559 March, [facility] [place] [facility] [address] [id number] [place] [address]- 9294 March, [facility] [place] [facility] [address] [id number] [place] [address] 8189 March, [facility] [place] [facility] [address] [id number] [place] [address] 8503 Feb, [facility] [place] [facility] [address] [id number] [place] [address]- 0354 Feb, [facility] [place] [facility] [address] [id number] [place] [address] 4230 Feb, [facility] [place] [facility] [address] [id number] [place] [address] 3688 Feb, [facility] [place] [facility] [address] [id number] [place] [address]- 9256 Feb, [facility] [place] [facility] [address] [id number] [place] [address]- 2391 Feb, [facility] [place] [facility] [address] [id number] [place] [address]- 0309 Feb, [facility] [place] [facility] [address] [id number] [place] [address] 1918 Feb, [facility] [place] [facility] [address] [id number] [place] [address]- 3750 Feb, [facility] [place] [facility] [address] [id number] [place] [address]- 6827 Feb, [facility] [place] [facility] [address] [id number] [place] [address]- 3406 Feb, [facility] [place] [facility] [address] [id number] [place] [address]- 4055 Feb, [facility] [place] [facility] [address] [id number] [place] [address]- 9048 Feb, [facility] [place] [facility] [address] [id number] [place] [address]- 9745 Feb, [facility] [place] [facility] [address] [id number] [place] [address]- 1132 Feb, [facility] [place] [facility] [address] [id number] [place] [address]- 4179 Feb, [facility] [place] [facility] [address] [id number] [place] [address]- 4094 Feb, [facility] [place] [facility] [address] [id number] [place] [address]- 6526 Feb, [facility] [place] [facility] [address] [id number] [place] [address]- 9003 Feb, [facility] [place] [facility] [address] [id number] [place] [address]- 7260 Feb, [facility] [place] [facility] [address] [id number], [place] [address]- 4989 Jan, [facility] [place] [facility] [address] [id number] [place] [address]- 8820 Jan, [facility] [place] [facility] [address] [id number] [place] [address]- 2309 Jan, [facility] [place] [facility] [address] [id number] [place] [address]- 7866 Jan, [facility] [place] [facility] [address] [id number] [place] [address]- 7687 24 Jan, 2014 [facility] [place] [facility] [address] [id number] [place] [address]- 7375 24 Jan, 2014 [facility] [place] [facility] [address] [id number] [place] [address]- 7806 18 Jan, 2014 [facility] [place] [facility] [address] [id number] [place] [address]- 7686 18 Jan, 2014 [facility] [place] [facility] [address] [id number] [place] [address]- 9761 14 Jan, 2014 [facility] [place] [facility] [address] [id number] [place] [address]- 3338 14 Jan, 2014 [facility] [place] [facility] [address] [id number] [place] [address]- 9159 11 Jan, 2014 [facility] [place] [facility] [address] [id number] [place] [address]- 3418 Jan, [facility] [place] [facility] [address] [id number] [place] [address]- 0605 05 Jan, 2014 [facility] [place] [facility] [address] [id number] [place] [address]- 2220 05 Jan, 2014 [facility] [place] [facility] [address] [facility] [id number] [place] [address]- 7082 Dec, [facility] [place] [facility] [address] [id number] [place] [address]- 3126 Dec, [facility] [place] [facility] [address] [id number] [place] [address]- 5147 Dec, [facility] [place] [facility] [address] [id number] [place] [address] Dec, [facility] [place] [facility] [address] [id number] [place] [address]- 4554 20 Dec, 2013 [facility] [place] [facility] [address] [id number] [place] [address]- 9773 Dec, [facility] [place] [facility] [address] [id number] [place] [address]- 6447 Dec, [facility] [place] [facility] [address] [id number] [place] [address]- 5368 Dec, [facility] [place] [facility] [address] [id number] [place] [address]- 5352 Dec, [facility] [place] [facility] [address] [id number] [place] [address]- 8783 Nov, [facility] [place] [facility] [address] [id number] [place] [address]- 2676 Nov, [facility] [place] [facility] [address] [id number] [place] [address]- 5607 Nov, [facility] [place] [facility] [address] [id number] [place] [address]- 7277 Nov, [facility] [place] [facility] [address] [id number] [place] [address]- 5815 Oct, [facility] [place] [facility] [address] [id number] [place] [address]- 2282 Oct, [facility] [place] [facility] [address] [id number] [place] [address]- 1327 Oct, [facility] [place] [facility] [address] [id number] [place] [address]- 1662 Oct, [facility] [place] [facility] [address] [id number], [place] [address]- 9109 Oct, [facility] [place] [facility] [address] [id number] [place] [address]- 8459 Oct, [facility] [place] [facility] [address] [id number] [place] [address]- 2839 Oct, [facility] [place] [facility] [address] [id number] [place] [address]- 6316 Oct, [facility] [place] [facility] [address] [id number] [place] [address]- 4877 20 Oct, 2012 [facility] [address] [id number] [place] [address]- 0011 19 Oct, 2012 [facility] [address] [id number] [place] [address]- 5745 19 Oct, 2013 [facility] [address] [id number] [place] [address] 18 Oct, 2013 [facility] [address] [id number] [place] [address]- 2239 18 Oct, 2013 [facility] [address] [id number] [place] [address]- 9107 17 Oct, 2013 [facility] [address] [id number] [place] [address]- 5534 17 Oct, 2013 [facility] [address] [id number] [place] [address]- 3012 17 Oct, 2013 [facility] [address] [id number] [place] [address]- 8865 17 Oct, 2013 [facility] [address] [id number] [place] [address]- 2028 17 Oct, 2013 [facility] [address] [id number] [place] [address]- 7245 17 Oct, 2013 [facility] [address] [id number] [place] [address]- 2073 11 Oct, 2013 [facility] [address] [id number] [place] [address]- 7531 11 Oct, 2013 [facility] [address] [id number] [place] [address]- 9929 27 Sep, 2013 [facility] [address] [id number] [place] [address]- 7221 27 Sep, 2013 [facility] [address] [id number] [place] [address]- 5406 Sep, [facility] [place] [facility] [address] [id number] [place] [address]- 7055 Sep, [facility] [place] [facility] [address] [id number] [place] [address]- 1431 18 Sep, 2013 [facility] [place] [facility] [address] [id number] [place] [address]- 7728 Sep, [facility] [place] [facility] [address] [id number] [place] [address]- 6036 14 Sep, 2013 [facility] [place] [facility] [address] [id number] [place] [address]- 1448 Sep, [facility] [place] [facility] [address] [id number] [place] [address]- 2818 Sep, [facility] [place] [facility] [address] [id number] [place] [address]- 5478 Sep, [facility] [place] [facility] [address] [id number] [place] [address]- 3465 Sep, [facility] [place] [facility] [address] [id number] [place] [address]- 6226 Sep, [facility] [place] [facility] [address] [id number], [place] [address]- 2174 Aug, [facility] [place] [facility] [address] [id number], [place] [address]- 2082 Aug, [facility] [place] [facility] [address] [id number], [place] [address]- 4207 Aug, [facility] [place] [facility] [address] [id number], [place] [address]- 7767 Aug, [facility] [place] [facility] [address] [id number], [place] [address]- 4776 Aug, [facility] [place] [facility] [address] [id number], [place] [address]- 2605 Aug, [facility] [place] [facility] [address] [id number], [place] [address]- 6163 Aug, 2012 [facility] [place] [facility] [address] [id number] [place] [address]- 3551 Aug, 2012 [facility] [place] [facility] [address] [id number] [place] [address]- 1680 Aug, 2012 [facility] [place] [facility] [address] [id number] [place] [address] 16 Aug, 2012 [facility] [place] [facility] [address] [id number] [place] [address]- 2387 Aug, 2012 [facility] [place] [facility] [address] [id number] [place] [address]- 4018 10 Aug, 2012 [facility] [place] [facility] [address] [id number] [place] [address]- 6717 08 Aug, 2013 [facility] [place] [facility] [address] [id number] [place] [address]- 5785 Aug, [facility] [place] [facility] [address] [id number] [place] [address]- 0600 Aug, [facility] [place] [facility] [address] [id number] [place] [address]- 9753 Aug, [facility] [place] [facility] [address] [id number] [place] [address]- 5860 Aug, [facility] [place] [facility] [address] [id number] [place] [address]- 6078 Jul, [facility] [place] [facility] [address] [id number] [place] [address]- 7511 Jun, [facility] [place] [facility] [address] [id number] [place] [address]- 0049 Jun, [facility] [place] [facility] [address] [id number] [place] [address]- 6285 May, [facility] [place] [facility] [address] [id number] [place] [address]- 7068 May, [facility] [place] [facility] [address] [id number] [place] [address]- 9524 26 Apr, 2013 [facility] [address] [id number] [place] [address]- 9552 Apr, [facility] [place] [facility] [address] [id number] [place] [address]- 1832 Apr, [facility] [place] [facility] [address] [id number] [place] [address]- 0579 Apr, [facility] [place] [facility] [address] [id number] [place] [address]- 8219 18 Apr, 2013 [facility] [place] [facility] [address] [id number] [place] [address]- 8667 10 Apr, 2013 [facility] [place] [facility] [address] [id number] [place] [address]- 4623 07 Apr, 2013 [facility] [place] [facility] [address] [id number] [place] [address]- 6224 07 Apr, 2013 [facility] [address] [id number] [place] [address]- 1937 06 Apr, 2013 [facility] [place] [facility] [address] [id number] [place] [address]- 1289 Apr, [facility] [place] [facility] [address] [id number] [place] [address]- 5754 Apr, [facility] [place] [facility] [address] [id number] [place] [address]- 8089 March, [facility] [place] [facility] [address] [id number] [place] [address]- 1489 March, [facility] [place] [facility] [address] [id number] [place] [address]- 4545 March, [facility] [place] [facility] [address] [id number] [place] [address]- 6223 March, [facility] [place] [facility] [address] [id number] [place] [address]- 4256 March, [facility] [address] [id number] [place] [address]- 2978 Feb, [facility] [place] [facility] [address] [id number] [place] [address]- 2048 Feb, [facility] [address] [id number] [place] [address]- 5245 Jan, [facility] [place] [facility] [address] [id number] [place] [address]- 5173 Jan, [facility] [address] [id number] [place] [address]- 6914 Jan, [facility] [address] [id number] [place] [address]- 5576 Jan, [facility] [address] [id number] [place] [address]- 2232 Jan, [facility] [address] [id number] [place] [address]- 1835 Dec, [facility] [address] [id number] [place] [address]- 9955 Dec, [facility] [address] [id number] [place] [address]- 1470 Nov, [facility] [place] [facility] [address] [id number], [place] [address]- 3261 Nov, [facility] [place] [facility] [address] [id number], [place] [address]- 9624 18 Nov, 2012 [facility] [place] [facility] [address] [id number] [place] [address]- 9678 16 Nov, 2012 [facility] [place] [facility] [address] [id number], [place] [address]- 5732 15 Nov, 2012 [facility] [place] [facility] [address] [id number] [place] [address]- 3437 14 Nov, 2012 [facility] [place] [facility] [address] [id number] [place] [address]- 6971 14 Nov, 2012 [facility] [address] [id number] [place] [address]- 2910 Nov, [facility] [place] [facility] [address] [id number] [place] [address]- 8151 Nov, [facility] [address] [id number] [place] [address]- 5584 Nov, [facility] [place] [facility] [address] [id number] [place] [address]- 0436 Nov, [facility] [place] [facility] [address] [id number] [place] [address]- 9482 Oct, [facility] [place] [facility] [address] [id number] [place] [address]- 0717 Oct, [facility] [address] [id number] [place] [address]- 4524 Sep, [facility] [place] [facility] [address] [id number] [place] [address]- 1213 Sep, [facility] [place] [facility] [address] [id number] [place] [address]- 7733 Sep, [facility] [place] [facility] [address] [facility] [id number] [place] [address]- 9716 Sep, [facility] [place] [facility] [address] [id number] [place] [address]- 7797 Sep, [facility] [place] [facility] [address] [id number] [place] [address]- 8279 Sep, [facility] [place] [facility] [address] [id number] [place] [address]- 8529 Sep, [facility] [place] [facility] [address] [id number] [place] [address]- 2584 Sep, [facility] [place] [facility] [address] [id number] [place] [address]- 8978 Sep, [facility] [place] [facility] [address] [id number] [place] [address]- 0007 Sep, [facility] [place] [facility] [address] [id number] [place] [address]- 2493 Sep, [facility] [place] [facility] [address] [id number] [place] [address]- 3642 Sep, [facility] [place] [facility] [address] [id number] [place] [address], [place] [address]- 4984 Sep, [facility] [place] [facility] [address] [id number] [place] [address]- 5420 Sep, [facility] [place] [facility] [address] [id number] [place] [address]- 8089 Aug, [facility] [place] [facility] [address] [id number] [place] [address]- 1514 Aug, [facility] [place] [facility] [address] [id number] [place] [address]- 4426 Aug, [facility] [place] [facility] [address] [id number] [place] [address]- 8778 Aug, [facility] [place] [facility] [address] [id number] [place] [address]- 3274 Aug, [facility] [place] [facility] [address] [id number] [place] [address]- 9413 Aug, [facility] [place] [facility] [address] [id number], [place] [address]- 8887 Aug, [facility] [place] [facility] [address] [id number] [place] [address]- 7239 Aug, [facility] [place] [facility] [address] [id number] [place] [address]- 1377 Aug, [facility] [place] [facility] [address] [id number] [place] [address]- 5464 Aug, [facility] [place] [facility] [address] [id number], [place] [address]- 3128 Aug, [facility] [id number], [place] [address]- 1768 Aug, [facility] [id number], [place] [address]- 6005 Aug, [facility] [id number], [place] [address]- 2045 Aug, [facility] [id number], [place] [address]- 7597 Aug, [facility] [id number], [place] [address]- 8082 Aug, [facility] [id number] [place] [address]- 0876 Aug, [facility] [id number] [address] Jul, [facility] [id number] [place] [address] Jun, [facility] [id number] [address] Aug, [facility] [id number] [place] [address] Aug, [facility] [id number] [address] Aug, IMMUNIZATIONS No Known Immunizations SOCIAL HISTORY [...] surgery 08/16/2016 Hospitalization History Chest pain, CAD, HTN-[facility] 05/14/17 Hospitalization History chest pain, edema-[facility] 05/04/18
--- OUTSIDE RECORDS SUMMARY | 2018-09-08 15:10 | XMS REPORT ---
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 Active 92684273 Problem Urge incontinence of urine N39.41 Active 86348701 Problem Dependence on supplemental oxygen Z99.81 Active 620425956744 Problem Other chronic pain G89.29 Active 77564706 Problem Restless legs syndrome G25.81 Active 511717523 Problem Chronic systolic heart failure I50.22 Active 395352306 Problem Chronic pain syndrome G89.4 Active 617106958 Problem Gastroesophageal reflux disease without esophagitis K21.9 Active 824381108 Problem Morbid obesity E66.01 Active 499895685 Problem Morbid (severe) obesity due to excess calories E66.01 Active 073913970 Problem Lumbar pain M54.5 Active 292447338 Problem Chronic stasis dermatitis I83.10 Active 13391874 Problem Essential hypertension I10 Active 94469632 Problem Acquired hypothyroidism E03.9 Active 300870835 Problem Nocturnal hypoxia G47.34 Active 493174187 Problem Mixed hyperlipidemia E78.2 Active 638570413 Problem Renal insufficiency N28.9 Active 725892975 Problem Edema of both legs R60.0 Active 851950332 Problem Lymphedema I89.0 Active 856442265 Problem Stasis dermatitis without varicosities I87.2 Active [id number] ALLERGIES No Information ENCOUNTERS Encounter Location Date Diagnosis [facility] [id number] [address] Jun, [facility] [id number] [address] 9350 May, [facility] [id number] [address] 9713 May, [facility] [id number] [place] [address] 05768- 3864 19 Apr, 2018 Essential hypertension I10 ; Chronic systolic heart failure I50.22 ; Pain in right knee M25.561 ; Pain in left knee M25.562 ; Other chronic pain G89.29 ; Mixed hyperlipidemia E78.2 ; Morbid obesity E66.01 and Body mass index (BMI) 70 or greater, adult Z68.45 [facility] [id number] [place] [address] 82574- 2060 18 Apr, 2018 [facility] [id number] [place] [address] 14424- 3018 Apr, Acquired hypothyroidism E03.9 [facility] [id number] [place] [address] 22393- 1490 Apr, Acquired hypothyroidism E03.9 [facility] [id number] [place] [address] 93935- 4431 Apr, [facility] [id number] [place] [address] 41312- 2075 Apr, [facility] [id number] [place] [address] 41383- 3252 Apr, Acquired hypothyroidism E03.9 ; Morbid (severe) obesity due to excess calories E66.01 ; Body mass index (BMI) 70 or greater, adult Z68.45 ; Restless legs syndrome G25.81 ; Essential hypertension I10 and Lymphedema I89.0 [facility] [id number] [place] [address] 59534- 4067 Feb, [facility] [id number] [place] [address] 47104- 8965 Jan, [facility] [id number] [place] [address] 65209- 4382 Jan, [facility] [id number] [place] [address] 91078- 2954 Jan, Acquired hypothyroidism E03.9 ; Morbid (severe) obesity due to excess calories E66.01 ; Body mass index (BMI) 70 or greater, adult Z68.45 ; Cellulitis of left anterior lower leg L03.116 ; Restless legs syndrome G25.81 ; Nocturnal hypoxia G47.34 and Dependence on supplemental oxygen Z99.81 [facility] [id number] [place] [address] 60421- 6912 Jan, [facility] [id number] [place] [address] 68398- 8282 Dec, [facility] [address] 62872- 9023 Oct, [facility] [address] 84685- 5152 Oct, [facility] [address] 89530- 2311 Sep, [facility] [id number] [place] [address] 10408- 0181 Sep, [facility] [address] 15153- 5145 Sep, Dental examination Z01.20 [facility] [id number] [place] [address] 22534- 1607 Sep, Morbid obesity due to excess calories E66.01 ; Body mass index (BMI) of 70 or greater in adult Z68.45 ; Stasis dermatitis without varicosities I87.2 ; Lymphedema I89.0 ; Renal insufficiency N28.9 ; Acquired hypothyroidism E03.9 ; Cellulitis L03.90 ; Bronchitis J40 and BMI 40.0-44.9, adult Z68.41 [facility] [id number] [place] [address] 67765- 4024 Aug, [facility] [id number] [place] [address] [id number] Aug, Dental examination Z01.20 [facility] [id number] [place] [address] 20885- 5736 Aug, [facility] [id number] [place] [address] 19632- 8409 Jul, [facility] [id number] [place] [address] 28615- 6321 Jul, [facility] [address] 83414- 1484 18 Jul, 2017 [facility] [id number] [place] [address] 12325- 9408 Jul, [facility] [id number] [place] [address] 81274- 3477 Jul, [facility] [id number] [place] [address] 32506- 1923 Jun, [facility] [id number] [place] [address] 10748- 2833 Jun, Dependence on nocturnal oxygen therapy Z99.81 ; Morbid obesity due to excess calories E66.01 and Bronchitis J40 [facility] [id number] [place] [address] 07199- 8300 Jun, Restless legs syndrome G25.81 [facility] [id number] [place] [address] 42563- 4282 Jun, [facility] [id number] [place] [address] 52066- 5880 May, [facility] [id number] [place] [address] [id number] Apr, [facility] [id number] [place] [address] 28673- 1281 Apr, [facility] [id number] [place] [address] 96223- 8570 Apr, Essential hypertension I10 [facility] [id number] [place] [address] 27205- 2232 Apr, [id number] [place] [address] 70762- 8304 Apr, Chronic pain syndrome G89.4 and Urge incontinence of urine N39.41 [facility] [id number] [place] [address] 05142- 6712 March, Acquired hypothyroidism E03.9 [facility] [id number] [place] [address] 22921- 4949 March, [facility] [id number] [place] [address] 76369- 4985 March, [facility] [id number] [place] [address] 22362- 4246 March, Chronic pain syndrome G89.4 ; Essential [...] extremity L03.116 and Screening breast examination Z12.39 [facility] [id number] [place] [address] 36503- 9485 March, [facility] [id number] [place] [address] 45281- 9317 Feb, [facility] [id number] [place] [address] 08448- 2443 Feb, [facility] [id number] [place] [address] 84650- 2221 Feb, Chronic pain syndrome G89.4 [facility] [id number] [place] [address] 25914 -2244 Feb, Right foot pain M79.671 and Right foot sprain, initial encounter S93.601A [facility] [id number] [address]- 9921 Jan, [facility] [id number] [place] [address] 45788- 5421 Jan, [facility] [id number] [place] [address] 52152- 0419 Jan, Chronic pain syndrome G89.4 [facility] [id number] [place] [address] 01715- 2726 Jan, [facility] [id number] [place] [address] 17083- 9646 Dec, [facility] [id number] [place] [address] 55064- 9905 Dec, [facility] [id number] [place] [address] 39842- 3444 Dec, Pain in right knee M25.561 ; Pain in left knee M25.562 ; Essential hypertension I10 ; Chronic stasis dermatitis I83.10 ; Restless legs syndrome G25.81 ; Acquired hypothyroidism E03.9 ; Dependence on nocturnal oxygen therapy Z99.81 ; Mixed hyperlipidemia E78.2 ; Lymphedema I89.0 ; Chronic pain syndrome G89.4 ; Gastroesophageal reflux disease without esophagitis K21.9 and Urge incontinence of urine N39.41 [facility] [address] [address]- 7870 Nov, Mixed hyperlipidemia E78.2 [facility] [id number] [place] [address] 14445- 6452 Nov, [facility] [id number] [address]- 7118 Nov, [facility] [id number] [place] [address] 50315- 0854 Nov, [facility] [id number] [address] -4401 Nov, Stasis ulcer, left I83.029 [facility] [id number] [address]- 7503 Nov, [facility] [id number] [address]- 2474 Oct, [facility] [id number] [address]- 6525 Oct, [facility] [id number] [address]- 1258 Oct, [facility] [id number] [address]- 4474 Sep, [facility] [id number] [address]- 3611 Sep, [id number] [id number] Sep, [facility] [id number] [address]- 5412 Aug, [facility] [id number] [address]- 2081 Jul, [facility] [id number] [address]- 1399 Jul, [facility] [id number] [address]- 3618 Jul, [facility] [address] [address]- 2331 Jul, [facility] [id number] [address]- 6053 Jul, Chest pain, unspecified type R07.9 ; Dyspnea on exertion R06.09 ; Essential hypertension I10 ; Hyperlipidemia, unspecified hyperlipidemia type E78.5 ; Left bundle branch block I44.7 and Hypothyroidism, unspecified type E03.9 [facility] [id number] [address] Jun, Fever, unspecified fever cause R50.9 ; Headache, unspecified headache type R51 ; SOB (shortness of breath) R06.02 and Strep pharyngitis J02.0 [address] 40255- 3426 Jun, [address] [address] 42562- 2005 Jun, [address] [address] 55925- 9147 Jun, Essential hypertension I10 ; Mixed hyperlipidemia E78.2 and Acquired hypothyroidism E03.9 [address] [facility] [address] 61381- 1097 Jun, Edema of both legs R60.0 ; Hypoxia R09.02 and Essential hypertension I10 [address] [facility] [address] 09075- 9355 Jun, [address] [facility] [address] 75423- 9846 Jun, Edema of both legs R60.0 ; Hypoxia R09.02 and Essential hypertension I10 [address] [facility] 91754- 4190 Jun, Essential hypertension I10 ; Dependence on supplemental oxygen Z99.81 and Edema of both legs R60.0 [address] [address] 50910- 6144 May, Lumbar pain M54.5 ; Essential hypertension I10 ; Edema of both legs R60.0 ; Stasis dermatitis without varicosities I87.2 and Left knee pain M25.562 [address] [facility] [address] 17065- 2191 May, [address] [facility] 39502- 1401 May, [address] [facility] [address] 30700- 4163 May, [facility] [id number] [place] [address] 30997- 9587 Apr, [facility] [id number] [place] [address] 54220- 9110 Apr, [facility] [id number] [place] [address] 73492- 0927 March, [facility] [id number] [place] [address] 70401- 6690 March, Lymphedema I89.0 ; Morbid obesity due to excess calories E66.01 ; Alteration in mobility due to weakness R53.1 and Hypoxia R09.02 [facility] [id number] [place] [address] 87402- 9050 March, Abdominal wall mass R19.00 [facility] [id number] [place] [address] 86631- 2164 March, [address] [facility] [id number] [place] [address] 33149- 8014 March, Abdominal wall mass R19.00 ; Lower abdominal pain R10.30 ; Alteration in mobility due to weakness R53.1 ; Hypoxia R09.02 and Lymphedema I89.0 [address] [id number] [place] [address] 45718- 3439 Feb, [address] [facility] [id number] [place] [address] 51192- 0168 Feb, Acquired hypothyroidism E03.9 ; Dependence on machine for supplemental oxygen V46.2 ; Restless legs syndrome G25.81 ; Essential hypertension I10 ; Renal insufficiency N28.9 ; Chronic stasis dermatitis I83.10 ; Mixed hyperlipidemia E78.2 ; Other chronic pain 338.29 and Cellulitis of left lower extremity L03.116 [facility] [id number] [place] [address] 27062- 5403 Feb, [facility] [id number] [place] [address] 12358- 1575 Feb, [facility] [id number] [place] [address] 05664 -4168 Feb, Shortness of breath R06.02 and Bronchitis J40 [facility] [id number] [place] [address] 84235- 8325 Jan, Dependence on supplemental oxygen Z99.81 [address] [address] 34233- 3836 Jan, [address] [facility] [address] 47135- 8714 Dec, [facility] [address] 95132- 1237 Dec, [facility] [address] 82784- 3750 Nov, Osteoarthritis of knees, bilateral M17.0 [address] [address] 08902- 6918 Nov, Dependence on machine for supplemental oxygen V46.2 ; Nocturnal hypoxia G47.34 and Urgency of urination R39.15 [facility] [id number] [place] [address] 30516- 7605 Nov, [facility] [id number] [place] [address] 92674- 5755 Oct, Pain in right knee M25.561 and Pain in left knee M25.562 [facility] [id number] [place] [address] 86077- 5932 Oct, Acquired hypothyroidism E03.9 ; Renal insufficiency N28.9 and Chronic stasis dermatitis I83.10 [facility] [id number] [place] [address] 82409- 7237 Oct, [facility] [id number] [place] [address] 89446- 7989 Sep, Cellulitis L03.90 ; Left knee pain M25.562 ; Essential hypertension I10 ; Lymphedema I89.0 ; Lumbar pain M54.5 ; Morbid obesity due to excess calories E66.01 and Renal insufficiency N28.9 [facility] [address] 23753- 8357 Sep, Cellulitis L03.90 and Lymphedema I89.0 [facility] [address] 82509- 9263 Sep, [facility] [address] 53675- 0772 Sep, [facility] [address] 61658- 7575 Sep, Left knee pain M25.562 ; Lumbar pain M54.5 ; Restless legs syndrome G25.81 ; Acquired hypothyroidism E03.9 and Essential hypertension I10 [facility] [address] 96744- 1439 Jul, [facility] [address] 77954- 7586 Jun, [facility] [address] 78820- 7276 May, [facility] [id number] [place] [address] 37964- 1251 May, [facility] [address] 12197- 2896 May, Hypertension 997.91 ; Restless legs syndrome [RLS] 333.94 ; Unspecified venous (peripheral) insufficiency 459.81 ; Unspecified hypothyroidism 244.9 and Other chronic pain 338.29 [facility] [address] 93588- 8790 Apr, [facility] [address] 39702- 5485 Apr, [facility] [place] [address] [place] [address]- 2519 Apr, Restless legs syndrome [RLS] 333.94 ; Shortness of breath 786.05 ; Unspecified venous (peripheral) insufficiency 459.81 ; Unspecified hypothyroidism 244.9 ; Obesity, unspecified 278.00 ; Other chronic pain 338.29 ; Hypertension 997.91 and Hyperlipidemia 272.4 [facility] [address] [address]- 1599 Feb, [facility] [id number] [place] [address] 919660- 4825 Feb, [facility] [id number] [place] [address] 36172- 0030 Jan, [facility] [id number] [place] [address] 12885287- 6854 Jan, [facility] [id number] [place] [address] 31867- 8501 Jan, [facility] [id number] [address]- 7560 Jan, [facility] [id number] [address]- 2395 Jan, [facility] [address] [address]- 0329 Jan, [facility] [address] [address]- 8931 Jan, [facility] [address] [address] 2209 Jan, [facility] [id number]- 3036 Jan, [facility] [address] 8514 Jan, [facility] [address] 4518 Jan, [facility] [place] [facility] [address] [id number] [place] [address]- 0300 11 Jan, 2015 [facility] [place] [facility] [address] [id number] [place] [address]- 3616 Jan, [facility] [place] [facility] [address] [id number] [place] [address]- 9207 Jan, [facility] [place] [facility] [address] [id number] [place] [address]- 7296 Dec, [facility] [place] [facility] [address] [id number] [place] [address]- 4088 Dec, [facility] [place] [facility] [address] [id number] [place] [address]- 6693 Nov, [facility] [place] [facility] [address] [id number] [place] [address]- 9955 Nov, [facility] [place] [facility] [address] [id number] [place] [address]- 8792 Nov, [facility] [place] [facility] [address] [id number] [place] [address]- 2946 Nov, [facility] [place] [facility] [address] [id number] [place] [address]- 2418 Nov, [facility] [place] [facility] [address] [id number] [place] [address]- 6237 Nov, [facility] [place] [facility] [address] [id number] [place] [address]- 4979 Nov, [facility] [place] [facility] [address] [id number] [place] [address]- 9187 Nov, [facility] [place] [facility] [address] [id number] [place] [address]- 2267 Nov, [facility] [place] [facility] [address] [id number] [place] [address]- 2110 14 Nov, 2014 [facility] [place] [facility] [address] [id number] [address]- 5574 Nov, [facility] [place] [facility] [address] [id number] [place] [address]- 0442 Nov, [facility] [place] [facility] [address] [id number] [place] 8935 Nov, [facility] [place] [facility] [address] [id number] [place] [address] Nov, [facility] [place] [facility] [address] [id number] [place] [address] Nov, [facility] [place] [facility] [address] [id number] [place] [address] Nov, [facility] [place] [facility] [address] [id number] [place] [address] Oct, [facility] [place] [facility] [address] [id number] [place] [address] Oct, [facility] [place] [facility] [address] [id number] [place] [address] Sep, [facility] [place] [facility] [address] [id number] [place] [address] Aug, [facility] [place] [facility] [address] [id number] [place] [address] Aug, [facility] [place] [facility] [address] [id number] [place] [address] Aug, [facility] [place] [facility] [address] [id number] [place] [address] Aug, [facility] [place] [facility] [address] [id number] [place] [address] Aug, [facility] [place] [facility] [address] [id number] [place] [address] Aug, [facility] [place] [facility] [address] [id number] [place] [address] Aug, [facility] [place] [facility] [address] [id number] [place] [address] Aug, [facility] [place] [facility] [address] [id number] [place] [address] Aug, [facility] [place] [facility] [address] [id number] [place] [address] Aug, [facility] [place] [facility] [address] [id number] [place] [address] Jun, [facility] [place] [facility] [address] [id number] [place] [address] Jun, [facility] [place] [facility] [address] [id number] [place] [address] Jun, [facility] [place] [facility] [address] [id number] [place] [address] Jun, [facility] [place] [facility] [address] [id number] [place] [address] Jun, [facility] [place] [facility] [address] [id number] [place] [address] Jun, [facility] [place] [facility] [address] [id number] [place] [address] Jun, [facility] [place] [facility] [address] [id number] [place] [address] Jun, [facility] [place] [facility] [address] [id number] [place] [address] Jun, [facility] [place] [facility] [address] [id number] [place] [address] Jun, [facility] [place] [facility] [address] [id number] [place] [address] May, [facility] [place] [facility] [address] [id number] [place] [address] May, [facility] [place] [facility] [address] [id number] [place] [address] May, [facility] [place] [facility] [address] [id number] [place] [address] May, 2013 [facility] [place] [facility] [address] [id number] [place] [address] May, 2013 [facility] [place] [facility] [address] [id number] [place] [address] May, 2013 [facility] [place] [facility] [address] [id number] [place] [address]- 9837 May, 2013 [facility] [place] [facility] [address] [id number] [place] [address] May, 2013 [facility] [place] [facility] [address] [id number] [place] [address] 6967 May, 2013 [facility] [place] [facility] [address] [id number] [place] [address] 5991 May, 2013 [facility] [place] [facility] [address] [id number] [place] [address]- 0622 May, 2013 [facility] [place] [facility] [address] [id number] [place] [address] 1070 May, 2013 [facility] [place] [facility] [address] [id number] [place] [address]- 2037 May, [facility] [place] [facility] [address] [id number] [place] [address] 3700 May, 2013 [facility] [place] [facility] [address] [id number] [place] [address]- 0129 May, [facility] [place] [facility] [address] [id number] [place] [address]- 6974 May, 2013 [facility] [place] [facility] [address] [id number] [place] [address]- 6371 May, [facility] [place] [facility] [address] [id number] [place] [address]- 6325 May, 2013 [facility] [place] [facility] [address] [id number] [place] [address]- 0806 Apr, [facility] [place] [facility] [address] [id number] [place] [address]- 6573 Apr, [facility] [place] [facility] [address] [id number] [place] [address]- 4756 Apr, [facility] [place] [facility] [address] [id number] [place] [address]- 2352 Apr, [facility] [place] [facility] [address] [id number] [place] [address]- 2340 Apr, [facility] [place] [facility] [address] [id number] [place] [address]- 8627 Apr, [facility] [place] [facility] [address] [id number] [place] [address]- 6173 Apr, [facility] [place] [facility] [address] [id number] [place] [address]- 0333 Apr, [facility] [place] [facility] [address] [id number] [place] [address]- 4299 Apr, [facility] [place] [facility] [address] [id number] [place] [address]- 5850 Apr, [facility] [place] [facility] [address] [id number] [place] [address]- 9582 Apr, [facility] [place] [facility] [address] [id number] [place] [address]- 2015 Apr, [facility] [place] [facility] [address] [id number] [place] [address]- 3690 March, [facility] [place] [facility] [address] [id number] [place] [address]- 4688 March, [facility] [place] [facility] [address] [id number] [place] [address]- 8846 March, [facility] [place] [facility] [address] [id number] [place] [address]- 2478 March, [facility] [place] [facility] [address] [id number] [place] [address] 7241 March, [facility] [place] [facility] [address] [id number] [place] [address]- 5934 March, [facility] [place] [facility] [address] [id number] [place] [address]- 4242 March, [facility] [place] [facility] [address] [id number] [place] [address]- 8853 March, [facility] [place] [facility] [address] [id number] [place] [address]- 9221 March, [facility] [place] [facility] [address] [id number] [place] [address]- 9169 March, [facility] [place] [facility] [address] [id number] [place] [address] 5015 March, [facility] [place] [facility] [address] [id number] [place] [address]- 1260 Feb, [facility] [place] [facility] [address] [id number] [place] [address]- 9919 Feb, [facility] [place] [facility] [address] [id number] [place] [address]- 6659 Feb, [facility] [place] [facility] [address] [id number] [place] [address]- 7193 Feb, [facility] [place] [facility] [address] [id number] [place] [address]- 4902 Feb, [facility] [place] [facility] [address] [id number] [place] [address]- 7068 Feb, [facility] [place] [facility] [address] [id number] [place] [address]- 2383 Feb, [facility] [place] [facility] [address] [id number] [place] [address]- 9603 Feb, [facility] [place] [facility] [address] [id number] [place] [address]- 8086 Feb, [facility] [place] [facility] [address] [id number] [place] [address]- 3765 Feb, [facility] [place] [facility] [address] [id number] [place] [address]- 2682 Feb, [facility] [place] [facility] [address] [id number] [place] [address]- 4204 Feb, [facility] [place] [facility] [address] [id number] [place] [address]- 7135 Feb, [facility] [place] [facility] [address] [id number] [place] [address]- 1371 Feb, [facility] [place] [facility] [address] [id number] [place] [address]- 0095 Feb, [facility] [place] [facility] [address] [id number] [place] [address]- 5144 Feb, [facility] [place] [facility] [address] [id number] [place] [address]- 3881 Feb, [facility] [place] [facility] [address] [id number] [place] [address]- 9785 Feb, [facility] [place] [facility] [address] [id number] [place] [address]- 4513 Feb, [facility] [place] [facility] [address] [id number] [place] [address]- 1503 Feb, [facility] [place] [facility] [address] [id number] [address] 2449 Jan, [facility] [place] [facility] [address] [id number] [place] [address]- 1659 Jan, [facility] [place] [facility] [address] [id number] [place] [address]- 3500 Jan, [facility] [place] [facility] [address] [id number] [place] [address]- 7017 Jan, [facility] [place] [facility] [address] [id number] [place] [address]- 6648 24 Jan, 2014 [facility] [place] [facility] [address] [id number] [place] [address]- 8399 24 Jan, 2014 [facility] [place] [facility] [address] [id number] [place] [address]- 9656 18 Jan, 2014 [facility] [place] [facility] [address] [id number] [place] [address]- 5570 18 Jan, 2014 [facility] [place] [facility] [address] [id number] [place] [address]- 4479 14 Jan, 2014 [facility] [place] [facility] [address] [id number] [place] [address]- 2863 14 Jan, 2014 [facility] [place] [facility] [address] [id number] [place] [address]- 6306 11 Jan, 2014 [facility] [place] [facility] [address] [id number] [place] [address]- 9902 Jan, [facility] [place] [facility] [address] [id number] [place] [address]- 5330 05 Jan, 2014 [facility] [place] [facility] [address] [id number] [place] [address]- 4641 05 Jan, 2014 [facility] [place] [facility] [address] [facility] [id number] [place] [address]- 5256 Dec, [facility] [place] [facility] [address] [id number] [place] [address]- 5966 Dec, [facility] [place] [facility] [address] [id number] [place] [address]- 1881 Dec, [facility] [place] [facility] [address] [id number] [place] [address] Dec, [facility] [place] [facility] [address] [id number] [place] [address]- 9051 20 Dec, 2013 [facility] [place] [facility] [address] [id number] [place] [address]- 3454 Dec, [facility] [place] [facility] [address] [id number] [place] [address]- 3312 Dec, [facility] [place] [facility] [address] [id number] [place] [address]- 2709 Dec, [facility] [place] [facility] [address] [id number] [place] [address]- 9504 Dec, [facility] [place] [facility] [address] [id number] [place] [address]- 1418 Nov, [facility] [place] [facility] [address] [id number] [place] [address]- 1783 Nov, [facility] [place] [facility] [address] [id number] [place] [address]- 2586 Nov, [facility] [place] [facility] [address] [id number] [place] [address]- 3315 Nov, [facility] [place] [facility] [address] [id number] [place] [address]- 8283 Oct, [facility] [place] [facility] [address] [id number] [place] [address]- 9039 Oct, [facility] [place] [facility] [address] [id number] [place] [address]- 1820 Oct, [facility] [place] [facility] [address] [id number] [place] [address]- 6027 Oct, [facility] [place] [facility] [address] [id number] [address]- 5653 Oct, [facility] [place] [facility] [address] [id number] [place] [address]- 1514 Oct, [facility] [place] [facility] [address] [id number] [place] [address]- 3484 Oct, [facility] [place] [facility] [address] [id number] [place] [address]- 2459 Oct, [facility] [place] [facility] [address] [id number] [place] [address]- 9471 20 Oct, 2012 [facility] [address] [id number] [place] [address]- 5656 19 Oct, 2012 [facility] [address] [id number] [place] [address]- 6976 19 Oct, 2013 [facility] [address] [id number] [place] [address] 18 Oct, 2013 [facility] [address] [id number] [place] [address]- 4391 18 Oct, 2013 [facility] [address] [id number] [place] [address]- 8324 17 Oct, 2013 [facility] [address] [id number] [place] [address]- 4175 17 Oct, 2013 [facility] [address] [id number] [place] [address]- 1446 17 Oct, 2013 [facility] [address] [id number] [place] [address]- 5101 17 Oct, 2013 [facility] [address] [id number] [place] [address]- 5289 17 Oct, 2013 [facility] [address] [id number] [place] [address]- 3171 17 Oct, 2013 [facility] [address] [id number] [place] [address]- 3682 11 Oct, 2013 [facility] [address] [id number] [place] [address]- 3661 11 Oct, 2013 [facility] [address] [id number] [place] [address]- 5901 27 Sep, 2013 [facility] [address] [id number] [place] [address]- 8830 27 Sep, 2013 [facility] [address] [id number] [place] [address]- 8322 Sep, [facility] [place] [facility] [address] [id number] [place] [address]- 4116 Sep, [facility] [place] [facility] [address] [id number] [place] [address]- 0518 18 Sep, 2013 [facility] [place] [facility] [address] [id number] [place] [address]- 7830 Sep, [facility] [place] [facility] [address] [id number] [place] [address]- 7153 14 Sep, 2013 [facility] [place] [facility] [address] [id number] [place] [address]- 4685 Sep, [facility] [place] [facility] [address] [id number] [place] [address]- 9894 Sep, [facility] [place] [facility] [address] [id number] [place] [address]- 7317 Sep, [facility] [place] [facility] [address] [id number] [place] [address]- 7911 Sep, [facility] [place] [facility] [address] [id number] [place] [address]- 1091 Sep, [facility] [place] [facility] [address] [id number] [address]- 7616 Aug, [facility] [place] [facility] [address] [id number] [place] [address]- 5084 Aug, [facility] [place] [facility] [address] [id number] [address]- 9766 Aug, [facility] [place] [facility] [address] [id number] [place] [address]- 0480 Aug, [facility] [place] [facility] [address] [id number] [place] [address]- 0656 Aug, [facility] [place] [facility] [address] [id number] [place] [address]- 4152 Aug, [facility] [place] [facility] [address] [id number] [place] [address]- 4349 Aug, 2012 [facility] [place] [facility] [address] [id number] [place] [address]- 5917 Aug, 2012 [facility] [place] [facility] [address] [id number] [place] [address]- 6377 Aug, 2012 [facility] [place] [facility] [address] [id number] [place]261 16 Aug, 2012 [facility] [place] [facility] [address] [id number] [place] [address]- 9318 Aug, 2012 [facility] [place] [facility] [address] [id number] [place] [address]- 9015 10 Aug, 2012 [facility] [place] [facility] [address] [id number] [place] [address]- 9178 08 Aug, 2013 [facility] [place] [facility] [address] [id number] [place] [address]- 5374 Aug, [facility] [place] [facility] [address] [id number] [place] [address]- 3356 Aug, [facility] [place] [facility] [address] [id number] [place] [address]- 4724 Aug, [facility] [place] [facility] [address] [id number] [place] [address]- 6507 Aug, [facility] [place] [facility] [address] [id number] [place] [address]- 6808 Jul, [facility] [place] [facility] [address] [id number] [place] [address]- 6894 Jun, [facility] [place] [facility] [address] [id number] [place] [address]- 4266 Jun, [facility] [place] [facility] [address] [id number] [place] [address]- 5125 May, [facility] [place] [facility] [address] [id number] [place] [address]- 5750 May, [facility] [place] [facility] [address] [id number] [place] [address]- 1244 26 Apr, 2013 [facility] [address] [id number] [place] [address]- 2534 Apr, [facility] [place] [facility] [address] [id number] [place] [address]- 1088 Apr, [facility] [place] [facility] [address] [id number] [place] [address]- 8391 Apr, [facility] [place] [facility] [address] [id number] [place] [address]- 3652 18 Apr, 2013 [facility] [place] [facility] [address] [id number] [place] [address]- 4340 10 Apr, 2013 [facility] [place] [facility] [address] [id number] [place] [address]- 1658 07 Apr, 2013 [facility] [place] [facility] [address] [id number] [place] [address]- 6765 07 Apr, 2013 [facility] [address] [id number] [place] [address]- 5457 06 Apr, 2013 [facility] [place] [facility] [address] [id number] [place] [address]- 1853 Apr, [facility] [place] [facility] [address] [id number] [place] [address]- 3458 Apr, [facility] [place] [facility] [address] [id number] [place] [address]- 2893 March, [facility] [place] [facility] [address] [id number] [place] [address]- 6449 March, [facility] [place] [facility] [address] [id number] [place] [address]- 6060 March, [facility] [place] [facility] [address] [id number] [place] [address]- 9449 March, [facility] [place] [facility] [address] [id number] [place] [address]- 8055 March, [facility] [address] [id number] [place] [address]- 4703 Feb, [facility] [place] [facility] [address] [id number] [place] [address]- 3276 Feb, [facility] [address] [id number] [place] [address]- 9894 Jan, [facility] [place] [facility] [address] [id number] [place] [address]- 4566 Jan, [facility] [address] [id number] [place] [address]- 9098 Jan, [facility] [address] [id number] [place] [address]- 1143 Jan, [facility] [address] [id number] [place] [address]- 5230 Jan, [facility] [address] [id number] [place] [address]- 8782 Dec, [facility] [address] [id number] [place] [address]- 0290 Dec, [facility] [address] [id number] [place] [address]- 6714 Nov, [facility] [place] [facility] [address] [id number] [address]- 9024 Nov, [facility] [place] [facility] [address] [id number] [address]- 2964 18 Nov, 2012 [facility] [place] [facility] [address] [id number] [place] [address]- 9379 16 Nov, 2012 [facility] [place] [facility] [address] [id number] [address]- 4924 15 Nov, 2012 [facility] [place] [facility] [address] [id number] [place] [address]- 7163 14 Nov, 2012 [facility] [place] [facility] [address] [id number] [place] [address]- 9840 14 Nov, 2012 [facility] [address] [id number] [place] [address]- 8622 Nov, [facility] [place] [facility] [address] [id number] [place] [address]- 6328 Nov, [facility] [address] [id number] [place] [address]- 4550 Nov, [facility] [place] [facility] [address] [id number] [place] [address]- 9301 Nov, [facility] [place] [facility] [address] [id number] [place] [address]- 7713 Oct, [facility] [place] [facility] [address] [id number] [place] [address]- 6498 Oct, [facility] [address] [id number] [place] [address]- 4240 Sep, [facility] [place] [facility] [address] [id number] [place] [address]- 4954 Sep, [facility] [place] [facility] [address] [id number] [place] [address]- 8886 Sep, [facility] [place] [facility] [address] [facility] [id number] [place] [address]- 3758 Sep, [facility] [place] [facility] [address] [id number] [place] [address]- 0068 Sep, [facility] [place] [facility] [address] [id number] [place] [address]- 0353 Sep, [facility] [place] [facility] [address] [id number] [place] [address]- 9577 Sep, [facility] [place] [facility] [address] [id number] [place] [address]- 7399 Sep, [facility] [place] [facility] [address] [id number] [place] [address]- 6673 Sep, [facility] [place] [facility] [address] [id number] [place] [address]- 9054 Sep, [facility] [place] [facility] [address] [id number] [place] [address]- 6579 Sep, [facility] [place] [facility] [address] [id number] [place] [address]- 2831 Sep, [facility] [place] [facility] [address] [id number] [place] [address], [place] [address]- 8819 Sep, [facility] [place] [facility] [address] [id number] [place] [address] Sep, [facility] [place] [facility] [address] [id number] [place] [address] Aug, [facility] [place] [facility] [address] [id number] [place] [address] Aug, [facility] [place] [facility] [address] [id number] [place] [address] Aug, [facility] [place] [facility] [address] [id number] [place] [address] Aug, [facility] [place] [facility] [address] [id number] [place] [address] Aug, [facility] [place] [facility] [address] [id number] [place] [address] Aug, [facility] [place] [facility] [address] [id number] [address] Aug, [facility] [place] [facility] [address] [id number] [place] [address] Aug, [facility] [place] [facility] [address] [id number] [place] [address] Aug, [facility] [place] [facility] [address] [id number] [place] [address] Aug, [facility] [place] [facility] [address] [id number] [place] [address] Aug, [facility] [id number] [address] Aug, [facility] [id number] [address] Aug, [facility] [id number] [address] Aug, [facility] [id number] [address] Aug, [facility] [id number] [address] Aug, [facility] [id number] [place] [address] Aug, [facility] [id number] [place] [address] Jul, [facility] [id number] [place] [address] Jun, [facility] [id number] [address] Aug, [facility] [id number] [address] Aug, [facility] [id number] [address] Aug, IMMUNIZATIONS No Known Immunizations SOCIAL HISTORY Never Assessed REASON FOR VISIT Lab results PLAN OF CARE VITAL SIGNS MEDICATIONS Unknown [...] surgery 08/16/2016 Hospitalization History Chest pain, CAD, HTN-[facility] 05/14/17 Hospitalization History chest pain, edema-[facility] 05/04/18
--- OUTSIDE RECORDS SUMMARY | 2018-09-08 15:11 | XMS REPORT ---
Author Author PIPPA DIMAS 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 Active 07347549 Problem Urge incontinence of urine N39.41 Active 67397010 Problem Dependence on supplemental oxygen Z99.81 Active 942258680516 Problem Other chronic pain G89.29 Active 68454936 Problem Restless legs syndrome G25.81 Active 156439504 Problem Chronic systolic heart failure I50.22 Active 857839354 Problem Chronic pain syndrome G89.4 Active 763100795 Problem Gastroesophageal reflux disease without esophagitis K21.9 Active 604796136 Problem Morbid obesity E66.01 Active 505628398 Problem Morbid (severe) obesity due to excess calories E66.01 Active 447191037 Problem Lumbar pain M54.5 Active 627300705 Problem Chronic stasis dermatitis I83.10 Active 83656763 Problem Essential hypertension I10 Active 06606144 Problem Acquired hypothyroidism E03.9 Active 416893362 Problem Nocturnal hypoxia G47.34 Active 181088913 Problem Mixed hyperlipidemia E78.2 Active 680626875 Problem Renal insufficiency N28.9 Active 060036328 Problem Edema of both legs R60.0 Active 397013876 Problem Lymphedema I89.0 Active 553721106 Problem Stasis dermatitis without varicosities I87.2 Active 12717080 ALLERGIES Substance Reaction Event Type Date Status Bactrim DS hives Drug Allergy Apr, Active ENCOUNTERS Encounter Location Date Diagnosis [facility] [address] [facility] [id number] [address] Jun, [facility] [address] [facility] [id number] [address] 4579 Jun, [facility] [id number] [place] [address] 70179- 8637 May, [facility] [id number] [place] [address] 68846- 9439 May, [facility] [id number] [place] [address] 37203- 3870 Apr, Essential hypertension I10 ; Chronic systolic heart failure I50.22 ; Pain in right knee M25.561 ; Pain in left knee M25.562 ; Other chronic pain G89.29 ; Mixed hyperlipidemia E78.2 ; Morbid obesity E66.01 and Body mass index (BMI) 70 or greater, adult Z68.45 [facility] [id number] [place] [address] 49702- 2491 18 Apr, 2018 [place] [id number] [place] [address] 44985- 1856 Apr, Acquired hypothyroidism E03.9 [facility] [id number] [place] [address] 43641- 7252 08 Apr, 2018 Acquired hypothyroidism E03.9 [facility] [id number] [place] [address] 49208- 6823 Apr, [facility] [id number] [place] [address] 15045- 5657 Apr, [facility] [id number] [place] [address] 02864- 6525 Apr, Acquired hypothyroidism E03.9 ; Morbid (severe) obesity due to excess calories E66.01 ; Body mass index (BMI) 70 or greater, adult Z68.45 ; Restless legs syndrome G25.81 ; Essential hypertension I10 and Lymphedema I89.0 [facility] [id number] [place] [address] 84318- 9432 Feb, [facility] [id number] [place] [address] 28383- 6871 Jan, [place] [id number] [place] [address] 09826- 1215 Jan, [place] [id number] [place] [address] 10841- 7449 Jan, Acquired hypothyroidism E03.9 ; Morbid (severe) obesity due to excess calories E66.01 ; Body mass index (BMI) 70 or greater, adult Z68.45 ; Cellulitis of left anterior lower leg L03.116 ; Restless legs syndrome G25.81 ; Nocturnal hypoxia G47.34 and Dependence on supplemental oxygen Z99.81 [place] [id number] [place] [address] 69250- 4048 Jan, [place] [id number] [place] [address] 27524- 8056 Dec, [place] [id number] [place] [address] 11275- 7834 Oct, [place] [id number] [place] [address] 69862- 1432 07 Oct, 2017 [place] [id number] [place] [address] 15613- 2279 Sep, [place] [id number] [place] [address] 22430- 6063 16 Sep, 2017 [place] [id number] [place] [address] 69745- 6090 16 Sep, 2017 Dental examination Z01.20 [place] [id number] [place] [address] 08047- 8683 Sep, Morbid obesity due to excess calories E66.01 ; Body mass index (BMI) of 70 or greater in adult Z68.45 ; Stasis dermatitis without varicosities I87.2 ; Lymphedema I89.0 ; Renal insufficiency N28.9 ; Acquired hypothyroidism E03.9 ; Cellulitis L03.90 ; Bronchitis J40 and BMI 40.0-44.9, adult Z68.41 [place] [id number] [place] [address] 12163- 3381 Aug, [facility] [id number] [id number] Aug, Dental examination Z01.20 [facility] [address] [address] 9254 Aug, [facility] [address] [address]- 0742 Jul, [facility] [id number] [place] [address] 47216- 1349 Jul, [facility] [id number] [place] [address] 29665- 9546 18 Jul, 2017 [facility] [id number] [place] [address] 00857- 4616 Jul, [facility] [id number] [place] [address] 89659- 7184 Jul, [facility] [address] [address]- 2360 Jun, [facility] [id number] [place] [address] 60937- 4555 Jun, Dependence on nocturnal oxygen therapy Z99.81 ; Morbid obesity due to excess calories E66.01 and Bronchitis J40 [facility] [id number] [place] [address] 46840- 8470 Jun, Restless legs syndrome G25.81 [facility] [address] [address] 4607 Jun, [facility] [id number] [place] [address] 08931- 0151 May, [facility] [facility] [id number] [place] [address] [id number] Apr, [facility] [id number] [place] [address] 25563- 0617 Apr, [facility] [address] [address]- 9065 Apr, Essential hypertension I10 [facility] [id number] [place] [address] 93656- 7399 Apr, [facility] [id number] [place] [address] 26531- 9247 13 Apr, 2017 Chronic pain syndrome G89.4 and Urge incontinence of urine N39.41 [facility] [id number] [place] [address] 91996- 5413 March, Acquired hypothyroidism E03.9 [place] [address] 23920- 5651 March, [facility] [id number] [place] [address] 09391- 5083 March, [place] [id number] [place] [address] 78185- 0121 March, Chronic pain syndrome G89.4 ; Essential [...] extremity L03.116 and Screening breast examination Z12.39 [facility] [id number] [place] [address] 14517- 3373 March, [facility] [id number] [place] [address] 12005- 4591 Feb, [facility] [id number] [place] [address] 20729- 4028 Feb, [facility] [id number] [place] [address] 22138- 7232 Feb, Chronic pain syndrome G89.4 [facility] [id number] [place] [address] 17112 -6716 Feb, Right foot pain M79.671 and Right foot sprain, initial encounter S93.601A [facility] [id number] [place] [address] 55839- 9645 Jan, [facility] [id number] [place] [address] 80670- 9340 Jan, [facility] [id number] [place] [address] 12454- 8489 Jan, Chronic pain syndrome G89.4 [place] [id number] [place] [address] 49413- 2680 Jan, [place] [id number] [place] [address] 45750- 6776 Dec, [place] [id number] [place] [address] 75453- 1889 Dec, [place] [id number] [place] [address] 25138- 7834 Dec, Pain in right knee M25.561 ; Pain in left knee M25.562 ; Essential hypertension I10 ; Chronic stasis dermatitis I83.10 ; Restless legs syndrome G25.81 ; Acquired hypothyroidism E03.9 ; Dependence on nocturnal oxygen therapy Z99.81 ; Mixed hyperlipidemia E78.2 ; Lymphedema I89.0 ; Chronic pain syndrome G89.4 ; Gastroesophageal reflux disease without esophagitis K21.9 and Urge incontinence of urine N39.41 [place] [id number] [place] [address] 47872- 9331 Nov, Mixed hyperlipidemia E78.2 [place] [id number] [place] [address] 66390- 7293 Nov, [place] [id number] [place] [address] 68612- 4132 Nov, [place] [id number] [place] [address] 90370- 2290 Nov, [facility] [id number] [address] -6969 Nov, Stasis ulcer, left I83.029 [facility] [address] [address]- 7746 Nov, [facility] [address] [address]- 3581 Oct, [facility] [address] [address]- 3414 Oct, [facility] [address] [address]- 6447 Oct, [facility] [address] [address]- 6795 Sep, [facility] [address] [address]- 5558 Sep, [id number] [id number] Sep, [facility] [address] [address]- 3653 Aug, [facility] [address] [address]- 5954 Jul, [facility] [id number] [address]- 9245 Jul, [facility] [address] [address]- 1546 Jul, [facility] [address] [address]- 9851 Jul, [facility] [id number] [address]- 0394 14 Jul, 2016 Chest pain, unspecified type R07.9 ; Dyspnea on exertion R06.09 ; Essential hypertension I10 ; Hyperlipidemia, unspecified hyperlipidemia type E78.5 ; Left bundle branch block I44.7 and Hypothyroidism, unspecified type E03.9 [facility] [id number] [place] [address] 16983 -1941 Jun, Fever, unspecified fever cause R50.9 ; Headache, unspecified headache type R51 ; SOB (shortness of breath) R06.02 and Strep pharyngitis J02.0 [facility] [id number] [place] [address] 54066- 7721 Jun, [facility] [id number] [place] [address] 18495- 0287 Jun, [facility] [address] 03023- 2777 Jun, Essential hypertension I10 ; Mixed hyperlipidemia E78.2 and Acquired hypothyroidism E03.9 [facility] [id number] [place] [address] 54863- 4409 Jun, Edema of both legs R60.0 ; Hypoxia R09.02 and Essential hypertension I10 [facility] [id number] [place] [address] 71905- 3801 Jun, [facility] [id number] [place] [address] 73126- 0965 Jun, Edema of both legs R60.0 ; Hypoxia R09.02 and Essential hypertension I10 [facility] [id number] [place] [address] 96359- 5447 Jun, Essential hypertension I10 ; Dependence on supplemental oxygen Z99.81 and Edema of both legs R60.0 [facility] [id number] [place] [address] 08187- 8333 May, Lumbar pain M54.5 ; Essential hypertension I10 ; Edema of both legs R60.0 ; Stasis dermatitis without varicosities I87.2 and Left knee pain M25.562 [facility] [id number] [place] [address] 12190- 2886 May, [facility] [address] [address]- 0231 May, [facility] [id number] [place] [address] 37303- 3029 May, [facility] [id number] [place] [address] 64413- 0971 Apr, [place] [id number] [place] [address] 25011- 6854 Apr, [facility] [id number] [place] [address] 07885- 3019 March, [place] [id number] [place] [address] 20209- 5867 March, Lymphedema I89.0 ; Morbid obesity due to excess calories E66.01 ; Alteration in mobility due to weakness R53.1 and Hypoxia R09.02 [place] [id number] [place] [address] 16529- 8348 March, Abdominal wall mass R19.00 [place] [id number] [place] [address] 51604- 1773 March, [place] [id number] [place] [address] 14904- 3415 March, Abdominal wall mass R19.00 ; Lower abdominal pain R10.30 ; Alteration in mobility due to weakness R53.1 ; Hypoxia R09.02 and Lymphedema I89.0 [place] [address] [address]- 1867 Feb, [place] [address], [place] [address]- 6131 Feb, Acquired hypothyroidism E03.9 ; Dependence on machine for supplemental oxygen V46.2 ; Restless legs syndrome G25.81 ; Essential hypertension I10 ; Renal insufficiency N28.9 ; Chronic stasis dermatitis I83.10 ; Mixed hyperlipidemia E78.2 ; Other chronic pain 338.29 and Cellulitis of left lower extremity L03.116 [place] [id number] [place] [address] 83127- 8509 Feb, [facility] [address] 55171- 7554 Feb, [facility] [id number] [place] [address] 92648 -7954 Feb, Shortness of breath R06.02 and Bronchitis J40 [facility] [address] 78235- 7599 Jan, Dependence on supplemental oxygen Z99.81 [place] [address] 68997- 3004 Jan, [place] [address] 04533- 1475 Dec, [place] [address] 14522- 1114 Dec, [place] [address] 15484- 4091 Nov, Osteoarthritis of knees, bilateral M17.[address] 19810- 2672 Nov, Dependence on machine for supplemental oxygen V46.2 ; Nocturnal hypoxia G47.34 and Urgency of urination R39.15 [place] [id number] [place] [address] 80257- 1893 Nov, [place] [address] 32263- 1627 Oct, Pain in right knee M25.561 and Pain in left knee M25.[address] 83356- 2868 Oct, Acquired hypothyroidism E03.9 ; Renal insufficiency N28.9 and Chronic stasis dermatitis I83.10 [place] [address] 38657- 8367 Oct, [facility] [id number] [place] [address] 77830- 9637 Sep, Cellulitis L03.90 ; Left knee pain M25.562 ; Essential hypertension I10 ; Lymphedema I89.0 ; Lumbar pain M54.5 ; Morbid obesity due to excess calories E66.01 and Renal insufficiency N28.9 [facility] [address] 12624- 9062 Sep, Cellulitis L03.90 and Lymphedema I89.0 [place] [address] 76051- 7363 Sep, [place] [address] 07890- 6249 Sep, [place] [address] 06213- 7902 Sep, Left knee pain M25.562 ; Lumbar pain M54.5 ; Restless legs syndrome G25.81 ; Acquired hypothyroidism E03.9 and Essential hypertension I10 [place] [address] 34184- 9108 Jul, [facility] [address] 15413- 1191 Jun, [place] [address] 66547- 6284 May, [facility] [address] 35920- 5136 May, [facility] [address] 52937- 1632 May, Hypertension 997.91 ; Restless legs syndrome [RLS] 333.94 ; Unspecified venous (peripheral) insufficiency 459.81 ; Unspecified hypothyroidism 244.9 and Other chronic pain 338.29 [place] [address] 33034- 6860 Apr, [facility] [address] [address]- 3576 Apr, [facility] [id number] [place] [address] 40000- 5614 Apr, Restless legs syndrome [RLS] 333.94 ; Shortness of breath 786.05 ; Unspecified venous (peripheral) insufficiency 459.81 ; Unspecified hypothyroidism 244.9 ; Obesity, unspecified 278.00 ; Other chronic pain 338.29 ; Hypertension 997.91 and Hyperlipidemia 272.4 [facility] [address], [place] [address]- 8381 Feb, [facility] [id number] [place] [address] 49611- 1388 Feb, [facility] [id number] [place] [address] 823624- 9749 Jan, [facility] [id number] [place] [address] 22545- 3930 Jan, [facility] [address] [address]- 5201 Jan, [facility] [id number] [place] [address] 74767- 4228 Jan, [facility] [address], [place] [address]- 0878 Jan, [facility] [address], [place] [address]- 4706 Jan, [facility] [address] [address]- 8557 Jan, [facility] [id number] [place] [address] 713988- 5256 Jan, [facility] [address] 7104 Jan, [facility] [id number] [place] [address] 93978- 3553 Jan, [facility] [place] [facility] [address] [id number] [place] [address]- 8306 Jan, [facility] [place] [facility] [address] [id number] [place] [address]- 7507 Jan, [facility] [place] [facility] [address] [id number] [place] [address]- 0398 Jan, [facility] [place] [facility] [address] [id number] [place] [address]- 0016 Jan, [facility] [place] [facility] [address] [id number] [place] [address]- 7911 Dec, [facility] [place] [facility] [address] [id number] [place] [address]- 5789 Dec, [facility] [place] [facility] [address] [id number] [place] [address]- 1477 Nov, [facility] [place] [facility] [address] [id number] [place] [address]- 5139 Nov, [facility] [place] [facility] [address] [id number] [place] [address]- 2163 Nov, [facility] [place] [facility] [address] [facility] [id number] [place] [address]- 0993 Nov, [facility] [place] [facility] [address] [id number] [place] [address]- 6208 Nov, [facility] [place] [facility] [address] [id number] [place] [address]- 7520 Nov, [facility] [place] [facility] [address] [id number] [place] [address]- 4632 Nov, [facility] [place] [facility] [address] [id number] [place] [address]- 3935 Nov, [facility] [place] [facility] [address] [id number] [place] [address]- 4287 Nov, [facility] [place] [facility] [address] [id number] [place] [address]- 2406 14 Nov, 2014 [facility] [place] [facility] [address] [id number] [place] [address]- 6191 14 Nov, 2014 [facility] [place] [facility] [address] [id number] [place] [address]- 5769 Nov, [facility] [place] [facility] [address] [id number] [place] [address]- 6458 Nov, [facility] [place] [facility] [address] [id number] [place] [address] Nov, [facility] [place] [facility] [address] [id number] [place] [address] Nov, [facility] [place] [facility] [address] [id number] [place] [address] Nov, [facility] [place] [facility] [address] [id number] [place] [address] Oct, [facility] [place] [facility] [address] [id number] [place] [address] Oct, [facility] [place] [facility] [address] [id number] [place] [address] Sep, [facility] [place] [facility] [address] [id number] [place] [address] Aug, [facility] [place] [facility] [address] [id number] [place] [address] Aug, [facility] [place] [facility] [address] [id number] [place] [address] Aug, [facility] [place] [facility] [address] [id number] [place] [address] Aug, [facility] [place] [facility] [address] [id number] [place] [address] Aug, [facility] [place] [facility] [address] [id number] [place] [address] Aug, [facility] [place] [facility] [address] [id number] [place] [address] Aug, [facility] [place] [facility] [address] [id number] [place] [address] Aug, [facility] [place] [facility] [address] [id number] [place] [address] Aug, [facility] [place] [facility] [address] [id number] [place] [address] Aug, [facility] [place] [facility] [address] [id number] [place] [address] Jun, [facility] [place] [facility] [address] [id number] [place] [address] Jun, [facility] [place] [facility] [address] [id number] [place] [address] Jun, [facility] [place] [facility] [address] [id number] [place] [address] Jun, [facility] [place] [facility] [address] [id number] [place] [address] Jun, [facility] [place] [facility] [address] [id number] [place] [address] Jun, [facility] [place] [facility] [address] [id number] [place] [address] Jun, [facility] [place] [facility] [address] [id number] [address] Jun, [facility] [place] [facility] [address] [id number] [place] [address] Jun, [facility] [place] [facility] [address] [id number] [place] [address] 3[address] Jun, [facility] [place] [facility] [address] [id number] [place] [address] 0889 May, [facility] [place] [facility] [address] [id number] [place] [address] 7549 May, 2013 [facility] [place] [facility] [address] [id number] [place] [address] 7210 May, 2013 [facility] [place] [facility] [address] [id number] [place] [address]- 130[address] May, 2013 [facility] [place] [facility] [address] [id number] [place] [address] May, 2013 [facility] [place] [facility] [address] [id number] [place] [address] 6001 May, 2013 [facility] [place] [facility] [address] [id number] [place] [address]- 3126 May, 2013 [facility] [place] [facility] [address] [id number] [place] [address]- 7993 May, 2013 [facility] [place] [facility] [address] [id number] [place] [address]- 1541 May, 2013 [facility] [place] [facility] [address] [id number] [place] [address]- 3305 May, 2013 [facility] [place] [facility] [address] [id number] [place] [address]- 5856 May, 2013 [facility] [place] [facility] [address] [id number] [place] [address]- 3742 May, 2013 [facility] [place] [facility] [address] [id number] [place] [address]- 1732 May, 2013 [facility] [place] [facility] [address] [id number] [place] [address]- 8019 May, 2013 [facility] [place] [facility] [address] [id number] [place] [address]- 4831 May, 2013 [facility] [place] [facility] [address] [id number] [place] [address]- 9176 May, 2013 [facility] [place] [facility] [address] [id number] [place] [address]- 0026 May, [facility] [place] [facility] [address] [id number] [place] [address]- 0339 May, [facility] [place] [facility] [address] [id number] [place] [address]- 5268 Apr, [facility] [place] [facility] [address] [id number] [place] [address]- 3547 Apr, [facility] [place] [facility] [address] [id number] [place] [address]- 6659 Apr, [facility] [place] [facility] [address] [id number] [place] [address]- 1640 Apr, [facility] [place] [facility] [address] [id number] [place] [address]- 3271 Apr, [facility] [place] [facility] [address] [id number] [place] [address]- 7854 Apr, [facility] [place] [facility] [address] [id number] [place] [address]- 2579 Apr, [facility] [place] [facility] [address] [id number] [place] [address]- 0117 Apr, [facility] [place] [facility] [address] [id number] [place] [address]- 2584 Apr, [facility] [place] [facility] [address] [id number] [place] [address] Apr, [facility] [place] [facility] [address] [id number] [place] [address]- 5917 Apr, [facility] [place] [facility] [address] [id number] [place] [address]- 2354 Apr, [facility] [place] [facility] [address] [id number] [place] [address]- 1097 March, [facility] [place] [facility] [address] [id number] [place] [address]- 7018 March, [facility] [place] [facility] [address] [id number] [place] [address]- 4532 March, [facility] [place] [facility] [address] [id number] [place] [address]- 7996 March, [facility] [place] [facility] [address] [id number] [place] [address]- 6262 March, [facility] [place] [facility] [address] [id number] [place] [address]- 4984 March, [facility] [place] [facility] [address] [id number] [place] [address]- 2785 March, [facility] [place] [facility] [address] [id number] [place] [address]- 0363 March, [facility] [place] [facility] [address] [id number] [place] [address]- 9062 March, [facility] [place] [facility] [address] [id number] [place] [address]- 3126 March, [facility] [place] [facility] [address] [id number] [place] [address]- 7678 March, [facility] [place] [facility] [address] [id number] [place] [address]- 4957 Feb, [facility] [place] [facility] [address] [id number] [place] [address]- 2206 Feb, [facility] [place] [facility] [address] [id number] [place] [address]- 6509 Feb, [facility] [place] [facility] [address] [id number] [place] [address]- 3375 Feb, [facility] [place] [facility] [address] [id number] [place] [address]- 3101 Feb, [facility] [place] [facility] [address] [id number] [place] [address]- 2870 Feb, [facility] [place] [facility] [address] [id number] [place] [address]- 1171 Feb, [facility] [place] [facility] [address] [id number] [place] [address]- 6917 Feb, [facility] [place] [facility] [address] [id number] [place] [address]- 7504 Feb, [facility] [place] [facility] [address] [id number] [place] [address]- 0171 Feb, [facility] [place] [facility] [address] [id number] [place] [address]- 1810 Feb, [facility] [place] [facility] [address] [id number] [place] [address]- 7212 Feb, [facility] [place] [facility] [address] [id number] [place] [address]- 0342 Feb, [facility] [place] [facility] [address] [id number] [place] [address]- 9254 Feb, [facility] [place] [facility] [address] [id number] [place] [address]- 1712 Feb, [facility] [place] [facility] [address] [id number] [place] [address]- 3104 Feb, [facility] [place] [facility] [address] [id number] [place] [address]- 9102 Feb, [facility] [place] [facility] [address] [id number] [place] [address]- 9393 Feb, [facility] [place] [facility] [address] [id number] [place] [address]- 7426 Feb, [facility] [place] [facility] [address] [id number] [place] [address]- 8814 Feb, [facility] [place] [facility] [address] [id number] [place] [address] Jan, [facility] [place] [facility] [address] [id number] [place] [address] Jan, [facility] [place] [facility] [address] [id number] [place] [address]- 9109 Jan, [facility] [place] [facility] [address] [id number] [place] [address]- 4961 Jan, [facility] [place] [facility] [address] [id number] [place] [address]- 2364 Jan, [facility] [place] [facility] [address] [id number] [place] [address]- 7598 Jan, [facility] [place] [facility] [address] [id number] [place] [address]- 0829 Jan, [facility] [place] [facility] [address] [id number] [place] [address]- 1856 Jan, [facility] [place] [facility] [address] [id number] [place] [address]- 2086 Jan, [facility] [place] [facility] [address] [id number] [place] [address]- 1432 Jan, [facility] [place] [facility] [address] [id number] [place] [address]- 5936 Jan, [facility] [place] [facility] [address] [id number] [place] [address]- 0938 Jan, [facility] [place] [facility] [address] [id number] [place] [address]- 4675 Jan, [facility] [place] [facility] [address] [id number] [place] [address]- 0439 Jan, [facility] [place] [facility] [address] [id number] [place] [address]- 3087 Dec, [facility] [place] [facility] [address] [id number] [place] [address]- 7280 Dec, [facility] [place] [facility] [address] [id number] [place] [address]- 8101 Dec, [facility] [place] [facility] [address] [id number] [place] [address]- 2647 Dec, [facility] [place] [facility] [address] [id number] [place] [address]- 7166 Dec, [facility] [address] [id number] [place] [address]- 1166 Dec, [facility] [place] [facility] [address] [id number] [place] [address]- 2546 Dec, [facility] [place] [facility] [address] [id number] [place] [address]- 8026 Dec, [facility] [place] [facility] [address] [id number] [place] [address]- 2546 Dec, [facility] [place] [facility] [address] [id number] [place] [address]- 7193 Nov, [facility] [place] [facility] [address] [id number] [place] [address]- 9939 Nov, [facility] [place] [facility] [address] [id number] [place] [address]- 5360 Nov, [facility] [address] [id number] [place] [address]- 9058 Nov, [facility] [place] [facility] [address] [id number] [place] [address]- 8271 Oct, [facility] [address] [id number] [place] [address]- 0262 Oct, [facility] [place] [facility] [address] [id number] [place] [address] 2546 Oct, [facility] [place] [facility] [address] [id number] [place] [address] 2546 Oct, [facility] [place] [facility] [address] [id number] [place] [address] 2546 Oct, [facility] [place] [facility] [address] [id number] [place] [address]- 2546 Oct, [facility] [place] [facility] [address] [id number] [place] [address]- 7294 23 Oct, 2013 [facility] [address] [id number] [place] [address]- 5294 23 Oct, 2013 [facility] [place] [facility] [address] [id number] [place] [address]- 1557 20 Oct, 2013 [facility] [place] [facility] [address] [id number] [place] 2259 19 Oct, 2013 [facility] [place] [facility] [address] [id number] [place] [address]- 8231 19 Oct, 2013 [facility] [address] [id number] [place] [address]- 3807 18 Oct, 2013 [facility] [place] [facility] [address] [id number] [place] [address]- 2090 18 Oct, 2013 [facility] [place] [facility] [address] [id number] [place] [address]- 4494 17 Oct, 2013 [facility] [place] [facility] [address] [id number] [place] [address]- 5972 17 Oct, 2013 [facility] [place] [facility] [address] [id number] [place] [address]- 2345 17 Oct, 2013 [facility] [place] [facility] [address] [id number] [place] [address]- 4044 17 Oct, 2013 [facility] [place] [facility] [address] [id number] [place] [address]- 3900 17 Oct, 2013 [facility] [place] [facility] [address] [id number] [address]- 2197 17 Oct, 2013 [facility] [place] [facility] [address] [id number] [place] [address]- 3674 11 Oct, 2013 [facility] [place] [facility] [address] [id number] [place] [address]- 7149 11 Oct, 2013 [facility] [place] [facility] [address] [id number] [place] [address]- 2424 27 Sep, 2013 [facility] [place] [facility] [address] [id number] [place] [address]- 7100 27 Sep, 2013 [facility] [place] [facility] [address] [id number] [place] [address]- 9927 Sep, [facility] [place] [facility] [address] [id number] [place] [address]- 1020 Sep, [facility] [place] [facility] [address] [id number] [place] [address]- 2418 18 Sep, 2013 [facility] [place] [facility] [address] [id number] [place] [address]- 9900 14 Sep, 2013 [facility] [place] [facility] [address] [id number] [place] [address]- 9187 14 Sep, 2013 [facility] [place] [facility] [address] [id number] [place] [address]- 5013 Sep, [facility] [place] [facility] [address] [id number] [place] [address]- 1347 Sep, [facility] [place] [facility] [address] [id number] [place] [address]- 3714 Sep, [facility] [place] [facility] [address] [id number] [place] [address]- 1098 Sep, [facility] [place] [facility] [address] [id number] [place] [address]- 4599 Sep, [facility] [place] [facility] [address] [id number] [place] [address]- 6621 Aug, [facility] [place] [facility] [address] [id number] [place] [address]- 0448 Aug, [facility] [place] [facility] [address] [id number] [place] [address]- 6246 Aug, [facility] [place] [facility] [address] [id number] [place] [address]- 6124 Aug, [facility] [place] [facility] [address] [id number] [address]- 5380 Aug, [facility] [place] [facility] [address] [id number] [place] [address]- 7048 23 Aug, 2012 [facility] [place] [facility] [address] [id number] [place] [address]- 0611 Aug, 2012 [facility] [place] [facility] [address] [id number] [place] [address]- 8213 Aug, 2012 [facility] [place] [facility] [address] [id number] [place] [address]- 1271 16 Aug, 2013 [facility] [place] [facility] [address] [id number] [place] [address]- 1077 16 Aug, 2012 [facility] [place] [facility] [address] [id number] [place] [address]- 1728 10 Aug, 2013 [facility] [place] [facility] [address] [id number] [place] [address]- 8720 10 Aug, 2013 [facility] [place] [facility] [address] [id number] [place] [address]- 1798 08 Aug, 2013 [facility] [place] [facility] [address] [id number] [place] [address]- 7989 Aug, [facility] [place] [facility] [address] [id number] [place] [address]- 9654 04 Aug, 2013 [facility] [place] [facility] [address] [id number] [place] [address]- 7048 Aug, [facility] [place] [facility] [address] [id number] [place] [address]- 6061 Aug, [facility] [place] [facility] [address] [id number] [place] [address]- 9419 Jul, [facility] [place] [facility] [address] [id number] [place] [address]- 1144 Jun, [facility] [place] [facility] [address] [id number] [place] [address]- 7068 Jun, [facility] [place] [facility] [address] [id number] [place] [address]- 9716 May, [facility] [place] [facility] [address] [id number] [place] [address]- 4915 May, [facility] [place] [facility] [address] [id number] [place] [address]- 1058 Apr, [facility] [place] [facility] [address] [id number] [place] [address]- 6671 Apr, [facility] [place] [facility] [address] [id number] [place] [address]- 9400 Apr, [facility] [place] [facility] [address] [id number] [place] [address]- 8756 Apr, [facility] [place] [facility] [address] [id number] [place] [address]- 2289 Apr, [facility] [place] [facility] [address] [id number] [place] [address]- 4920 Apr, [facility] [place] [facility] [address] [id number] [place] [address]- 9633 Apr, [facility] [place] [facility] [address] [id number] [place] [address]- 5095 Apr, [facility] [place] [facility] [address] [id number] [place] [address]- 3001 Apr, [facility] [place] [facility] [address] [id number] [place] [address]- 4345 Apr, [facility] [place] [facility] [address] [id number] [place] [address]- 9778 Apr, [facility] [place] [facility] [address] [id number] [place] [address]- 2363 March, [facility] [place] [facility] [address] [id number] [place] [address]- 0155 March, [facility] [place] [facility] [address] [id number] [place] [address]- 8208 March, [facility] [place] [facility] [address] [id number] [place] [address] 2546 March, [facility] [address] [id number] [place] [address]- 6826 March, [facility] [address] [id number] [place] [address]- 1656 Feb, [facility] [address] [id number] [place] [address]- 8761 Feb, [facility] [address] [id number] [place] [address]- 7806 Jan, [facility] [address] [id number] [place] [address]- 2876 Jan, [facility] [address] [id number] [place] [address]- 3376 Jan, [facility] [address] [id number] [place] [address]- 5044 Jan, [facility] [address] [id number] [place] [address]- 2842 Jan, [facility] [address] [id number] [place] [address]- 0399 Dec, [facility] [address] [id number] [place] [address]- 8446 Dec, [facility] [address] [id number] [place] [address]- 2951 Nov, [facility] [address] [id number] [place] [address]- 7060 Nov, [facility] [address] [id number] [place] [address]- 7466 Nov, [facility] [address] [id number] [place] [address]- 2546 16 Nov, 2012 [facility] [address] [id number] [place] [address]- 7463 Nov, [facility] [place] [facility] [address] [id number] [place] [address]- 6772 14 Nov, 2012 [facility] [place] [facility] [address] [id number] [place] [address]- 6012 14 Nov, 2012 [facility] [place] [facility] [address] [id number] [place] [address]- 7041 11 Nov, 2012 [facility] [place] [facility] [address] [id number] [place] [address]- 9508 Nov, [facility] [place] [facility] [address] [id number] [place] [address]- 1841 Nov, [facility] [place] [facility] [address] [id number] [place] [address] Nov, [facility] [place] [facility] [address] [id number] [place] [address] Oct, [facility] [place] [facility] [address] [id number] [place] [address] Oct, [facility] [place] [facility] [address] [id number] [place] [address] Sep, [facility] [place] [facility] [address] [id number] [place] [address] Sep, [facility] [place] [facility] [address] [id number] [place] [address] Sep, [facility] [place] [facility] [address] [id number] [place] [address] Sep, [facility] [place] [facility] [address] [id number] [place] [address] Sep, [facility] [place] [facility] [address] [id number] [place] [address] Sep, [facility] [place] [facility] [address] [id number] [place] [address] Sep, [facility] [place] [facility] [address] [id number] [address] Sep, [facility] [place] [facility] [address] [id number] [place] [address] Sep, [facility] [place] [facility] [address] [id number] [address] Sep, [facility] [place] [facility] [address] [id number] [place] [address] Sep, [facility] [place] [facility] [address] [id number] [place] [address] Sep, [facility] [place] [facility] [id number] [place] [address], [place] [address] Sep, [facility] [place] [facility] [address] [id number] [place] [address] Sep, [facility] [place] [facility] [address] [facility] [id number] [place] [address] Aug, [facility] [place] [facility] [address] [id number][place] [address] Aug, [facility] [place] [facility] [address] [id number], [place] [address] Aug, [facility] [place] [facility] [address] [facility] [id number], [place] [address] Aug, [facility] [place] [facility] [address] [facility] [id number], [place] [address] Aug, [facility] [place] [facility] [address] [id number], [place] [address] Aug, [facility] [place] [facility] [address] [id number][place] [address] Aug, [facility] [place] [facility] [address] [facility] [id number], [place] [address] Aug, [facility] [place] [facility] [address] [facility] [id number][place] [address] Aug, [facility] [place] [facility] [address] [facility] [id number][place] [address] Aug, [facility] [address] [facility] [id number][place] [address] Aug, [facility] [address] [facility] [id number] [address] Aug, [facility] [address] [facility] [id number] [address] Aug, [facility] [address] [facility] [id number] [address] Aug, [facility] [id number] [address] Aug, [facility] [id number] [address] Aug, [facility] [id number], [place] [address] Aug, [facility] [id number], [place] [address] Jul, [facility] [id number] Jun, [facility] [id number], [place] [address] Aug, [facility] [id number], [place] [address] Aug, [facility] [address] [id number], [place] [address] Aug, IMMUNIZATIONS No Known Immunizations SOCIAL HISTORY Never Assessed REASON FOR VISIT Weight management -- tiffanie robledo PLAN OF CARE Activity Details Follow Up Physician 4 weeks Reason:weight VITAL SIGNS Height 62 in 2018-04-26 Weight 468.9 lbs 2018-04-26 Temperature 98.0 degrees Fahrenheit 2018-04-26 Heart Rate 90 bpm 2018-04-26 Respiratory Rate 24 2018-04-26 BMI 85.75 kg/m2 2018-04-26 Blood pressure systolic 144 mmHg 2018-04-26 Blood pressure diastolic 68 mmHg 2018-04-26 MEDICATIONS Medication Instructions Dosage Frequency Start Date End Date Duration Status Simvastatin 20 mg Orally at bedtime 1 tablet Active Metolazone 2.5 MG TAKE ONE TABLET BY MOUTH ONCE DAILY 30 Active Proventil HFA 108 (90 Base) MCG/ACT INHALE TWO PUFFS BY MOUTH EVERY 4 TO 6 HOURS NEEDED FOR COUGH OR WHEEZE 17 Active Metoprolol Tartrate 25 MG Orally Twice a day 1 tablet with food 12h 30 Active Potassium Chloride ER 20 MEQ TAKE ONE TABLET BY MOUTH ONCE DAILY WITH FOOD 30 Active Incontinence Supplies - Depends brief-size requested by patient 8h Apr Active Ropinirole HCl 4 MG Orally Once a day 1 tablet 1 to 3 hours before bedtime 24h 30 Active Protonix 40 mg Orally Once a day 1 tablet 24h 28 Jan, 2018 30 day(s) Active Triamcinolone Acetonide 0.1 % APPLY TO AFFECTED AREA TWICE DAILY FOR 10 DAYS 10 Active Cyclobenzaprine HCl 10 MG TAKE ONE TABLET BY MOUTH AT BEDTIME 28 Active Levothyroxine Sodium 75 mcg Orally Once a day 1 tablet on an empty stomach in the morning 24h 30 Active Neurontin 300 MG Orally Once a day at night 1 capsule 30 Active Entresto 24-26 MG Orally Twice a day 1 tablet 12h Active Ropinirole HCl 4 MG Orally Once a day 1 tablet 1 to 3 hours before bedtime 24h 28 days Active Cymbalta 60 MG TAKE ONE CAPSULE BY MOUTH ONCE DAILY 30 Active Wheelchair 1 as directed March, Active RESULTS No Results PROCEDURES Procedure Date Ordered Result Body Site LAB NOT BILLED BY [facility] April 26, 2018 INSTRUCTIONS MEDICATIONS ADMINISTERED No Known Medications [...]
--- OUTSIDE RECORDS SUMMARY | 2018-09-08 15:11 | XMS REPORT ---
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 Active 84141041 Problem Urge incontinence of urine N39.41 Active 57696695 Problem Dependence on supplemental oxygen Z99.81 Active 197124633296 Problem Other chronic pain G89.29 Active 94566620 Problem Restless legs syndrome G25.81 Active 901389377 Problem Chronic systolic heart failure I50.22 Active 405023988 Problem Chronic pain syndrome G89.4 Active 430373467 Problem Gastroesophageal reflux disease without esophagitis K21.9 Active 536318716 Problem Morbid obesity E66.01 Active 826507380 Problem Morbid (severe) obesity due to excess calories E66.01 Active 251748718 Problem Lumbar pain M54.5 Active 778058518 Problem Chronic stasis dermatitis I83.10 Active 31133942 Problem Essential hypertension I10 Active 21536415 Problem Acquired hypothyroidism E03.9 Active 329068966 Problem Nocturnal hypoxia G47.34 Active 433162707 Problem Mixed hyperlipidemia E78.2 Active 169690585 Problem Renal insufficiency N28.9 Active 451935959 Problem Edema of both legs R60.0 Active 024135254 Problem Lymphedema I89.0 Active 687764966 Problem Stasis dermatitis without varicosities I87.2 Active 53113595 ALLERGIES No Information ENCOUNTERS Encounter Location Date Diagnosis [facility], [place] [id number] [address] 08[address] Jun, [facility], [place] [id number] [address] 8968 May, [facility], [place] [id number] [address] 9857 May, [facility], [place] [id number] [place] [address] 42452- 6896 19 Apr, 2018 Essential hypertension I10 ; Chronic systolic heart failure I50.22 ; Pain in right knee M25.561 ; Pain in left knee M25.562 ; Other chronic pain G89.29 ; Mixed hyperlipidemia E78.2 ; Morbid obesity E66.01 and Body mass index (BMI) 70 or greater, adult Z68.45 [facility], [place] [id number] [place] [address] 17012- 6134 18 Apr, 2018 [facility], [place] [id number] [place] [address] 19280- 2062 Apr, Acquired hypothyroidism E03.9 [facility], [place] [id number] [place] [address] 22745- 8669 Apr, Acquired hypothyroidism E03.9 [facility], [place] [id number] [place] [address] 64359- 6957 Apr, [facility], [place] [id number] [place] [address] 29160- 6318 Apr, [facility], [place] [id number] [place] [address] 59187- 2169 Apr, Acquired hypothyroidism E03.9 ; Morbid (severe) obesity due to excess calories E66.01 ; Body mass index (BMI) 70 or greater, adult Z68.45 ; Restless legs syndrome G25.81 ; Essential hypertension I10 and Lymphedema I89.0 [facility], [place] [id number] [place] [address] 52272- 3859 Feb, [facility], [place] [id number] [place] [address] 26148- 8112 Jan, [facility], [place] [id number] [place] [address] 18810- 3895 Jan, [facility], [place] [id number] [place] [address] 07953- 0999 Jan, Acquired hypothyroidism E03.9 ; Morbid (severe) obesity due to excess calories E66.01 ; Body mass index (BMI) 70 or greater, adult Z68.45 ; Cellulitis of left anterior lower leg L03.116 ; Restless legs syndrome G25.81 ; Nocturnal hypoxia G47.34 and Dependence on supplemental oxygen Z99.81 [facility], [place] [id number] [place] [address] 26170- 9315 Jan, [facility], [place] [id number] [place] [address] 13493- 7833 Dec, [facility], [place] [address] 50968- 9909 Oct, [facility], [place] [address] 49510- 3459 Oct, [facility], [place] [address] 44006- 1231 Sep, [facility], [place] [id number] [place] [address] 85776- 5272 Sep, [facility], [place] [address] 57987- 4321 Sep, Dental examination Z01.20 [facility], [place] [id number] [place] [address] 08578- 0560 Sep, Morbid obesity due to excess calories E66.01 ; Body mass index (BMI) of 70 or greater in adult Z68.45 ; Stasis dermatitis without varicosities I87.2 ; Lymphedema I89.0 ; Renal insufficiency N28.9 ; Acquired hypothyroidism E03.9 ; Cellulitis L03.90 ; Bronchitis J40 and BMI 40.0-44.9, adult Z68.41 [facility], [place] [id number] [place] [address] 41253- 5713 Aug, [facility] [id number] [place] [address] [id number] Aug, Dental examination Z01.20 [facility], [place] [id number] [place] [address] 24224- 1351 Aug, [facility], [place] [id number] [place] [address] 49724- 5064 Jul, [facility], [place] [id number] [place] [address] 63443- 4595 Jul, [facility], [place] [address] 20750- 4393 18 Jul, 2017 [facility], [place] [id number] [place] [address] 83226- 8071 Jul, [facility], [place] [id number] [place] [address] 85735- 7676 Jul, [facility], [place] [id number] [place] [address] 95772- 2118 Jun, [facility], [place] [id number] [place] [address] 19145- 8023 Jun, Dependence on nocturnal oxygen therapy Z99.81 ; Morbid obesity due to excess calories E66.01 and Bronchitis J40 [facility], [place] [id number] [place] [address] 77299- 2901 Jun, Restless legs syndrome G25.81 [facility], [place] [id number] [place] [address] 52468- 2693 Jun, [facility], [place] [id number] [place] [address] 93517- 4621 May, [facility] [id number] [place] [address] [id number] Apr, [facility], [place] [id number] [place] [address] 16383- 1333 Apr, [facility], [place] [id number] [place] [address] 89082- 6380 Apr, Essential hypertension I10 [facility], [place] [id number] [place] [address] 66944- 1875 Apr, [place] [id number] [place] [address] 87609- 1471 Apr, Chronic pain syndrome G89.4 and Urge incontinence of urine N39.41 [place] [id number] [place] [address] 78712- 4273 March, Acquired hypothyroidism E03.9 [facility], [place] [id number] [place] [address] 26924- 7942 March, [place] [id number] [place] [address] 01386- 0270 March, [place] [id number] [place] [address] 50048- 2459 March, Chronic pain syndrome G89.4 ; Essential [...] extremity L03.116 and Screening breast examination Z12.39 [place] [id number] [place] [address] 69975- 9647 March, [place] [id number] [place] [address] 77756- 6524 Feb, [facility], [place] [id number] [place] [address] 33815- 3778 Feb, [facility], [place] [id number] [place] [address] 73904- 2148 Feb, Chronic pain syndrome G89.4 [facility] [id number] [place] [address] 92493 -4401 Feb, Right foot pain M79.671 and Right foot sprain, initial encounter S93.601A [place] [id number] [address]- 8092 Jan, [facility], [place] [id number] [place] [address] 33405- 7249 Jan, [facility], [place] [id number] [place] [address] 70759- 8260 Jan, Chronic pain syndrome G89.4 [facility], [place] [id number] [place] [address] 48056- 6569 Jan, [facility], [place] [id number] [place] [address] 26278- 8971 Dec, [facility], [place] [id number] [place] [address] 62974- 9500 Dec, [facility], [place] [id number] [place] [address] 32760- 6534 Dec, Pain in right knee M25.561 ; Pain in left knee M25.562 ; Essential hypertension I10 ; Chronic stasis dermatitis I83.10 ; Restless legs syndrome G25.81 ; Acquired hypothyroidism E03.9 ; Dependence on nocturnal oxygen therapy Z99.81 ; Mixed hyperlipidemia E78.2 ; Lymphedema I89.0 ; Chronic pain syndrome G89.4 ; Gastroesophageal reflux disease without esophagitis K21.9 and Urge incontinence of urine N39.41 [facility], [place] [address], [place] [address]- 7820 Nov, Mixed hyperlipidemia E78.2 [facility], [place] [id number] [place] [address] 42054- 4626 Nov, [facility], [place] [address], [place] [address]- 1081 Nov, [facility], [place] [id number] [place] [address] 52194- 0494 Nov, [facility] [address], [place] [address] -6427 Nov, Stasis ulcer, left I83.029 [facility], [place] [address], [place] [address]- 1176 Nov, [facility], [place] [address], [place] [address]- 4535 Oct, [facility], [place] [address], [place] [address]- 9354 Oct, [facility], [place] [address], [place] [address]- 1840 Oct, [facility], [place] [address], [place] [address]- 7753 Sep, [facility], [place] [id number], [place] [address]- 4831 Sep, [id number] [id number] Sep, [facility], [place] [address], [place] [address]- 3281 Aug, [facility], [place] [address], [place] [address]- 6336 Jul, [facility], [place] [id number], [place] [address]- 8791 Jul, [facility], [place] [id number], [place] [address]- 0612 Jul, [facility], [place] [address], [place] [address]- 6187 Jul, [facility], [place] [id number], [place] [address]- 5030 Jul, Chest pain, unspecified type R07.9 ; Dyspnea on exertion R06.09 ; Essential hypertension I10 ; Hyperlipidemia, unspecified hyperlipidemia type E78.5 ; Left bundle branch block I44.7 and Hypothyroidism, unspecified type E03.9 [facility] [id number], [place] [address] -[address]27 Jun, Fever, unspecified fever cause R50.9 ; Headache, unspecified headache type R51 ; SOB (shortness of breath) R06.02 and Strep pharyngitis J02.0 [place] [address] 41219- 7593 Jun, [place] [address] 92059- 6800 Jun, [place] [address] 63098- 3039 Jun, Essential hypertension I10 ; Mixed hyperlipidemia E78.2 and Acquired hypothyroidism E03.9 [place] [address] 75812- 8366 Jun, Edema of both legs R60.0 ; Hypoxia R09.02 and Essential hypertension I10 [address] [place] [address] 73940- 7037 Jun, [place] [address] 62954- 4215 Jun, Edema of both legs R60.0 ; Hypoxia R09.02 and Essential hypertension I10 [place] [address] 56205- 1063 Jun, Essential hypertension I10 ; Dependence on supplemental oxygen Z99.81 and Edema of both legs R60.0 [address] [address] 03757- 5712 May, Lumbar pain M54.5 ; Essential hypertension I10 ; Edema of both legs R60.0 ; Stasis dermatitis without varicosities I87.2 and Left knee pain M25.562 [address] [address] 74992- 3511 May, [place] [address] 04570- 1973 May, [place] 82024- 1845 May, [facility], [place] [id number] [place] [address] 99316- 7440 Apr, [facility], [place] [id number] [place] [address] 43410- 0128 Apr, [facility], [place] [id number] [place] [address] 04788- 9517 March, [facility], [place] [id number] [place] [address] 87665- 1859 March, Lymphedema I89.0 ; Morbid obesity due to excess calories E66.01 ; Alteration in mobility due to weakness R53.1 and Hypoxia R09.02 [place] [id number] [place] [address] 56998- 6931 March, Abdominal wall mass R19.00 [place] [id number] [place] [address] 99491- 2734 March, [place] [id number] [place] [address] 27280- 9572 March, Abdominal wall mass R19.00 ; Lower abdominal pain R10.30 ; Alteration in mobility due to weakness R53.1 ; Hypoxia R09.02 and Lymphedema I89.0 [place] [id number] [place] [address] 04364- 0762 Feb, [place] [id number] [place] [address] 07864- 5747 Feb, Acquired hypothyroidism E03.9 ; Dependence on machine for supplemental oxygen V46.2 ; Restless legs syndrome G25.81 ; Essential hypertension I10 ; Renal insufficiency N28.9 ; Chronic stasis dermatitis I83.10 ; Mixed hyperlipidemia E78.2 ; Other chronic pain 338.29 and Cellulitis of left lower extremity L03.116 [place] [id number] [place] [address] 60685- 1427 Feb, [facility], [place] [id number] [place] [address] 45200- 3773 Feb, [facility] [id number] [place] [address] 43824 -0761 Feb, Shortness of breath R06.02 and Bronchitis J40 [facility], [place] [id number] [place] [address] 52254- 1684 Jan, Dependence on supplemental oxygen Z99.81 [place] [address] 66018- 5279 Jan, [place] [address] 97033- 8279 Dec, [place] [address] 46536- 4256 Dec, [place] [address] 08065- 9328 Nov, Osteoarthritis of knees, bilateral M17.0 [place] [address] 14066- 4542 Nov, Dependence on machine for supplemental oxygen V46.2 ; Nocturnal hypoxia G47.34 and Urgency of urination R39.15 [place] [id number] [place] [address] 43821- 0832 Nov, [place] [id number] [place] [address] 40351- 2309 Oct, Pain in right knee M25.561 and Pain in left knee M25.562 [place] [id number] [place] [address] 18375- 0504 Oct, Acquired hypothyroidism E03.9 ; Renal insufficiency N28.9 and Chronic stasis dermatitis I83.10 [place] [id number] [place] [address] 75886- 0353 Oct, [place] [id number] [place] [address] 06116- 7073 Sep, Cellulitis L03.90 ; Left knee pain M25.562 ; Essential hypertension I10 ; Lymphedema I89.0 ; Lumbar pain M54.5 ; Morbid obesity due to excess calories E66.01 and Renal insufficiency N28.9 [place] [address] 81559- 2602 Sep, Cellulitis L03.90 and Lymphedema I89.0 [place] [address] 61500- 2317 Sep, [place] [address] 95794- 7203 Sep, [place] [address] 98860- 4507 Sep, Left knee pain M25.562 ; Lumbar pain M54.5 ; Restless legs syndrome G25.81 ; Acquired hypothyroidism E03.9 and Essential hypertension I10 [place] [address] 51794- 4788 Jul, [place] [address] 44564- 3643 Jun, [place] [address] 09791- 1000 May, [place] [id number] [place] [address] 07547- 2677 May, [place] [address] 10924- 6860 May, Hypertension 997.91 ; Restless legs syndrome [RLS] 333.94 ; Unspecified venous (peripheral) insufficiency 459.81 ; Unspecified hypothyroidism 244.9 and Other chronic pain 338.29 [place] [address] 40722- 0811 Apr, [place] [address] 59186- 8807 Apr, [place] [address] [place] [address]- 3100 Apr, Restless legs syndrome [RLS] 333.94 ; Shortness of breath 786.05 ; Unspecified venous (peripheral) insufficiency 459.81 ; Unspecified hypothyroidism 244.9 ; Obesity, unspecified 278.00 ; Other chronic pain 338.29 ; Hypertension 997.91 and Hyperlipidemia 272.4 [facility], [place] [address], [place] [address]- 6091 Feb, [facility], [place] [id number] [place] [address] 308589- 8706 Feb, [facility], [place] [id number] [place] [address] 31510- 6657 Jan, [facility], [place] [id number] [place] [address] 20615372- 4038 Jan, [facility], [place] [id number] [place] [address] 13519- 0378 Jan, [facility], [place] [id number], [place] [address]- 4669 Jan, [facility], [place] [id number] [address]- 6074 Jan, [facility], [place] [address], [place] [address]- 8234 Jan, [facility], [place] [address], [place] [address]- 8485 Jan, [facility], [place] [address] [address]- 2042 Jan, [facility], [place] [id number]- 9073 Jan, [facility], [place] [address] 2438 Jan, [facility], [place] [address]- 9469 Jan, [facility] [place] [facility] [address] [id number] [place] [address]- 7664 11 Jan, 2015 [facility] [place] [facility] [address] [id number] [place] [address]- 9814 Jan, [facility] [place] [facility] [address] [id number] [place] [address]- 2533 Jan, [facility] [place] [facility] [address] [id number] [place] [address]- 1036 Dec, [facility] [place] [facility] [address] [id number] [place] [address]- 5433 Dec, [facility] [place] [facility] [address] [id number] [place] [address]- 3664 Nov, [facility] [place] [facility] [address] [id number] [place] [address]- 4838 Nov, [facility] [place] [facility] [address] [id number] [place] [address]- 5149 Nov, [facility] [place] [facility] [address] [id number] [place] [address]- 5721 Nov, [facility] [place] [facility] [address] [id number] [place] [address]- 9357 Nov, [facility] [place] [facility] [address] [id number] [place] [address]- 4839 Nov, [facility] [place] [facility] [address] [id number] [place] [address]- 5504 Nov, [facility] [place] [facility] [address] [id number] [place] [address]- 4286 Nov, [facility] [place] [facility] [address] [id number] [place] [address]- 3960 Nov, [facility] [place] [facility] [address] [id number] [place] [address]- 9333 14 Nov, 2014 [facility] [place] [facility] [address] [id number], [place] [address]- 7251 Nov, [facility] [place] [facility] [address] [id number] [place] [address]- 6202 Nov, [facility] [place] [facility] [address] [id number] [place] 4614 Nov, [facility] [place] [facility] [address] [id number] [place] [address]- 0962 Nov, [facility] [place] [facility] [address] [id number] [place] [address] Nov, [facility] [place] [facility] [address] [id number] [place] [address] Nov, [facility] [place] [facility] [address] [id number] [place] [address] Oct, [facility] [place] [facility] [address] [id number] [place] [address] Oct, [facility] [place] [facility] [address] [id number] [place] [address] Sep, [facility] [place] [facility] [address] [id number] [place] [address] Aug, [facility] [place] [facility] [address] [id number] [place] [address] Aug, [facility] [place] [facility] [address] [id number], [place] [address] Aug, [facility] [place] [facility] [address] [id number], [place] [address] Aug, [facility] [place] [facility] [address] [id number] [place] [address] Aug, [facility] [place] [facility] [address] [id number] [place] [address] Aug, [facility] [place] [facility] [address] [id number] [place] [address] Aug, [facility] [place] [facility] [address] [id number] [place] [address] Aug, [facility] [place] [facility] [address] [id number] [place] [address] Aug, [facility] [place] [facility] [address] [id number] [place] [address] Aug, [facility] [place] [facility] [address] [id number] [place] [address] Jun, [facility] [place] [facility] [address] [id number] [place] [address] Jun, [facility] [place] [facility] [address] [id number] [place] [address] Jun, [facility] [place] [facility] [address] [id number] [place] [address] Jun, [facility] [place] [facility] [address] [id number] [place] [address] Jun, [facility] [place] [facility] [address] [id number] [place] [address] Jun, [facility] [place] [facility] [address] [id number] [place] [address] Jun, [facility] [place] [facility] [address] [id number] [place] [address] Jun, [facility] [place] [facility] [address] [id number] [place] [address] Jun, [facility] [place] [facility] [address] [id number] [place] [address] Jun, [facility] [place] [facility] [address] [id number] [place] [address] May, [facility] [place] [facility] [address] [id number] [place] [address] May, [facility] [place] [facility] [address] [id number] [place] [address] May, [facility] [place] [facility] [address] [id number] [place] [address] May, 2013 [facility] [place] [facility] [address] [id number] [place] [address] May, 2013 [facility] [place] [facility] [address] [id number] [place] [address] May, 2013 [facility] [place] [facility] [address] [id number] [place] [address] May, 2013 [facility] [place] [facility] [address] [id number] [place] [address] May, 2013 [facility] [place] [facility] [address] [id number] [place] [address] May, 2013 [facility] [place] [facility] [address] [id number] [place] [address] May, 2013 [facility] [place] [facility] [address] [id number] [place] [address] 2613 May, 2013 [facility] [place] [facility] [address] [id number] [place] [address] 4969 May, 2013 [facility] [place] [facility] [address] [id number] [place] [address] 7842 May, [facility] [place] [facility] [address] [id number] [place] [address] 1636 May, 2013 [facility] [place] [facility] [address] [id number] [place] [address]- 6667 May, [facility] [place] [facility] [address] [id number] [place] [address]- 0049 May, 2013 [facility] [place] [facility] [address] [id number] [place] [address]- 5607 May, [facility] [place] [facility] [address] [id number] [place] [address]- 4793 May, 2013 [facility] [place] [facility] [address] [id number] [place] [address]- 4863 Apr, [facility] [place] [facility] [address] [id number] [place] [address]- 5423 Apr, [facility] [place] [facility] [address] [id number] [place] [address]- 3222 Apr, [facility] [place] [facility] [address] [id number] [place] [address]- 6753 Apr, [facility] [place] [facility] [address] [id number] [place] [address]- 1445 Apr, [facility] [place] [facility] [address] [id number] [place] [address]- 1746 Apr, [facility] [place] [facility] [address] [id number] [place] [address]- 5801 Apr, [facility] [place] [facility] [address] [id number] [place] [address]- 5192 Apr, [facility] [place] [facility] [address] [id number] [place] [address]- 4768 Apr, [facility] [place] [facility] [address] [id number] [place] [address]- 9481 Apr, [facility] [place] [facility] [address] [id number] [place] [address]- 4696 Apr, [facility] [place] [facility] [address] [id number] [place] [address]- 5111 Apr, [facility] [place] [facility] [address] [id number] [place] [address]- 5593 March, [facility] [place] [facility] [address] [id number] [place] [address]- 3795 March, [facility] [place] [facility] [address] [id number] [place] [address]- 6107 March, [facility] [place] [facility] [address] [id number] [place] [address]- 9268 March, [facility] [place] [facility] [address] [id number] [place] [address]- 8198 March, [facility] [place] [facility] [address] [id number] [place] [address]- 1735 March, [facility] [place] [facility] [address] [id number] [place] [address]- 4759 March, [facility] [place] [facility] [address] [id number] [place] [address]- 0985 March, [facility] [place] [facility] [address] [id number] [place] [address]- 8047 March, [facility] [place] [facility] [address] [id number] [place] [address]- 8219 March, [facility] [place] [facility] [address] [id number] [place] [address]- 6135 March, [facility] [place] [facility] [address] [id number] [place] [address]- 3025 Feb, [facility] [place] [facility] [address] [id number] [place] [address]- 3669 Feb, [facility] [place] [facility] [address] [id number] [place] [address]- 1131 Feb, [facility] [place] [facility] [address] [id number] [place] [address]- 0301 Feb, [facility] [place] [facility] [address] [id number] [place] [address]- 1352 Feb, [facility] [place] [facility] [address] [id number] [place] [address]- 2286 Feb, [facility] [place] [facility] [address] [id number] [place] [address]- 9460 Feb, [facility] [place] [facility] [address] [id number] [place] [address]- 7029 Feb, [facility] [place] [facility] [address] [id number] [place] [address]- 1421 Feb, [facility] [place] [facility] [address] [id number] [place] [address]- 1935 Feb, [facility] [place] [facility] [address] [id number] [place] [address]- 3540 Feb, [facility] [place] [facility] [address] [id number] [place] [address]- 4353 Feb, [facility] [place] [facility] [address] [id number] [place] [address]- 1360 Feb, [facility] [place] [facility] [address] [id number] [place] [address]- 5138 Feb, [facility] [place] [facility] [address] [id number] [place] [address]- 2130 Feb, [facility] [place] [facility] [address] [id number] [place] [address]- 4662 Feb, [facility] [place] [facility] [address] [id number] [place] [address]- 5482 Feb, [facility] [place] [facility] [address] [id number] [place] [address]- 1233 Feb, [facility] [place] [facility] [address] [id number] [place] [address]- 1355 Feb, [facility] [place] [facility] [address] [id number] [place] [address]- 9864 Feb, [facility] [place] [facility] [address] [id number], [place] [address]- 1187 Jan, [facility] [place] [facility] [address] [id number] [place] [address]- 9282 Jan, [facility] [place] [facility] [address] [id number] [place] [address]- 4795 Jan, [facility] [place] [facility] [address] [id number] [place] [address]- 2880 Jan, [facility] [place] [facility] [address] [id number] [place] [address]- 8163 24 Jan, 2014 [facility] [place] [facility] [address] [id number] [place] [address]- 6658 24 Jan, 2014 [facility] [place] [facility] [address] [id number] [place] [address]- 9986 18 Jan, 2014 [facility] [place] [facility] [address] [id number] [place] [address]- 0926 18 Jan, 2014 [facility] [place] [facility] [address] [id number] [place] [address]- 1144 14 Jan, 2014 [facility] [place] [facility] [address] [id number] [place] [address]- 8894 14 Jan, 2014 [facility] [place] [facility] [address] [id number] [place] [address]- 5536 11 Jan, 2014 [facility] [place] [facility] [address] [id number] [place] [address]- 1065 Jan, [facility] [place] [facility] [address] [id number] [place] [address]- 7083 05 Jan, 2014 [facility] [place] [facility] [address] [id number] [place] [address]- 8968 05 Jan, 2014 [facility] [place] [facility] [address] [facility] [id number] [place] [address]- 9565 Dec, [facility] [place] [facility] [address] [id number] [place] [address]- 8075 Dec, [facility] [place] [facility] [address] [id number] [place] [address]- 4373 Dec, [facility] [place] [facility] [address] [id number] [place] [address] Dec, [facility] [place] [facility] [address] [id number] [place] [address]- 3842 20 Dec, 2013 [facility] [place] [facility] [address] [id number] [place] [address]- 6528 Dec, [facility] [place] [facility] [address] [id number] [place] [address]- 8052 Dec, [facility] [place] [facility] [address] [id number] [place] [address]- 6128 Dec, [facility] [place] [facility] [address] [id number] [place] [address]- 2732 Dec, [facility] [place] [facility] [address] [id number] [place] [address]- 5449 Nov, [facility] [place] [facility] [address] [id number] [place] [address]- 6238 Nov, [facility] [place] [facility] [address] [id number] [place] [address]- 6681 Nov, [facility] [place] [facility] [address] [id number] [place] [address]- 5713 Nov, [facility] [place] [facility] [address] [id number] [place] [address]- 2459 Oct, [facility] [place] [facility] [address] [id number] [place] [address]- 9392 Oct, [facility] [place] [facility] [address] [id number] [place] [address]- 1512 Oct, [facility] [place] [facility] [address] [id number] [place] [address]- 5516 Oct, [facility] [place] [facility] [address] [id number], [place] [address]- 8575 Oct, [facility] [place] [facility] [address] [id number] [place] [address]- 4762 Oct, [facility] [place] [facility] [address] [id number] [place] [address]- 1597 Oct, [facility] [place] [facility] [address] [id number] [place] [address]- 4890 Oct, [facility] [place] [facility] [address] [id number] [place] [address]- 1617 20 Oct, 2012 [facility] [address] [id number] [place] [address]- 9931 19 Oct, 2012 [facility] [address] [id number] [place] [address]- 2342 19 Oct, 2013 [facility] [address] [id number] [place] 750[address] 18 Oct, 2013 [facility] [address] [id number] [place] [address]- 3538 18 Oct, 2013 [facility] [address] [id number] [place] [address]- 8044 17 Oct, 2013 [facility] [address] [id number] [place] [address]- 3585 17 Oct, 2013 [facility] [address] [id number] [place] [address]- 0551 17 Oct, 2013 [facility] [address] [id number] [place] [address]- 5969 17 Oct, 2013 [facility] [address] [id number] [place] [address]- 7532 17 Oct, 2013 [facility] [address] [id number] [place] [address]- 9011 17 Oct, 2013 [facility] [address] [id number] [place] [address]- 0649 11 Oct, 2013 [facility] [address] [id number] [place] [address]- 0076 11 Oct, 2013 [facility] [address] [id number] [place] [address]- 3520 27 Sep, 2013 [facility] [address] [id number] [place] [address]- 7900 27 Sep, 2013 [facility] [address] [id number] [place] [address]- 5355 Sep, [facility] [place] [facility] [address] [id number] [place] [address]- 2414 Sep, [facility] [place] [facility] [address] [id number] [place] [address]- 2081 18 Sep, 2013 [facility] [place] [facility] [address] [id number] [place] [address]- 5329 Sep, [facility] [place] [facility] [address] [id number] [place] [address]- 5206 14 Sep, 2013 [facility] [place] [facility] [address] [id number] [place] [address]- 7433 Sep, [facility] [place] [facility] [address] [id number] [place] [address]- 0218 Sep, [facility] [place] [facility] [address] [id number] [place] [address]- 5079 Sep, [facility] [place] [facility] [address] [id number] [place] [address]- 5048 Sep, [facility] [place] [facility] [address] [id number] [place] [address]- 3217 Sep, [facility] [place] [facility] [address] [id number], [place] [address]- 5478 Aug, [facility] [place] [facility] [address] [id number], [place] [address]- 5979 Aug, [facility] [place] [facility] [address] [id number], [place] [address]- 0825 Aug, [facility] [place] [facility] [address] [id number], [place] [address]- 6013 Aug, [facility] [place] [facility] [address] [id number], [place] [address]- 8819 Aug, [facility] [place] [facility] [address] [id number], [place] [address]- 1933 Aug, [facility] [place] [facility] [address] [id number], [place] [address]- 7225 Aug, 2012 [facility] [place] [facility] [address] [id number] [place] [address]- 7833 Aug, 2012 [facility] [place] [facility] [address] [id number] [place] [address]- 8807 Aug, 2012 [facility] [place] [facility] [address] [id number] [place] [address]407 16 Aug, 2012 [facility] [place] [facility] [address] [id number] [place] [address]- 4746 Aug, 2012 [facility] [place] [facility] [address] [id number] [place] [address]- 6949 10 Aug, 2012 [facility] [place] [facility] [address] [id number] [place] [address]- 0569 08 Aug, 2013 [facility] [place] [facility] [address] [id number] [place] [address]- 0147 Aug, [facility] [place] [facility] [address] [id number] [place] [address]- 4505 Aug, [facility] [place] [facility] [address] [id number] [place] [address]- 3758 Aug, [facility] [place] [facility] [address] [id number] [place] [address]- 2411 Aug, [facility] [place] [facility] [address] [id number] [place] [address]- 9627 Jul, [facility] [place] [facility] [address] [id number] [place] [address]- 3749 Jun, [facility] [place] [facility] [address] [id number] [place] [address]- 3273 Jun, [facility] [place] [facility] [address] [id number] [place] [address]- 0955 May, [facility] [place] [facility] [address] [id number] [place] [address]- 8721 May, [facility] [place] [facility] [address] [id number] [place] [address]- 4280 26 Apr, 2013 [facility] [address] [id number] [place] [address]- 3876 Apr, [facility] [place] [facility] [address] [id number] [place] [address]- 7642 Apr, [facility] [place] [facility] [address] [id number] [place] [address]- 7927 Apr, [facility] [place] [facility] [address] [id number] [place] [address]- 4106 18 Apr, 2013 [facility] [place] [facility] [address] [id number] [place] [address]- 6262 10 Apr, 2013 [facility] [place] [facility] [address] [id number] [place] [address]- 7835 07 Apr, 2013 [facility] [place] [facility] [address] [id number] [place] [address]- 5384 07 Apr, 2013 [facility] [address] [id number] [place] [address]- 9939 06 Apr, 2013 [facility] [place] [facility] [address] [id number] [place] [address]- 1082 Apr, [facility] [place] [facility] [address] [id number] [place] [address]- 1725 Apr, [facility] [place] [facility] [address] [id number] [place] [address]- 6664 March, [facility] [place] [facility] [address] [id number] [place] [address]- 2513 March, [facility] [place] [facility] [address] [id number] [place] [address]- 0332 March, [facility] [place] [facility] [address] [id number] [place] [address]- 6421 March, [facility] [place] [facility] [address] [id number] [place] [address]- 3010 March, [facility] [address] [id number] [place] [address]- 2080 Feb, [facility] [place] [facility] [address] [id number] [place] [address]- 5685 Feb, [facility] [address] [id number] [place] [address]- 7234 Jan, [facility] [place] [facility] [address] [id number] [place] [address]- 6166 Jan, [facility] [address] [id number] [place] [address]- 5053 Jan, [facility] [address] [id number] [place] [address]- 4867 Jan, [facility] [address] [id number] [place] [address]- 4543 Jan, [facility] [address] [id number] [place] [address]- 4832 Dec, [facility] [address] [id number] [place] [address]- 3547 Dec, [facility] [address] [id number] [place] [address]- 1582 Nov, [facility] [place] [facility] [address] [id number], [place] [address]- 6332 Nov, [facility] [place] [facility] [address] [id number], [place] [address]- 0859 18 Nov, 2012 [facility] [place] [facility] [address] [id number] [place] [address]- 3585 16 Nov, 2012 [facility] [place] [facility] [address] [id number][place] [address]- 1524 15 Nov, 2012 [facility] [place] [facility] [address] [id number] [place] [address]- 2025 14 Nov, 2012 [facility] [place] [facility] [address] [id number] [place] [address]- 1768 14 Nov, 2012 [facility] [address] [id number] [place] [address]- 6047 Nov, [facility] [place] [facility] [address] [id number] [place] [address]- 3610 Nov, [facility] [address] [id number] [place] [address]- 5200 Nov, [facility] [place] [facility] [address] [id number] [place] [address]- 3078 Nov, [facility] [place] [facility] [address] [id number] [place] [address]- 9599 Oct, [facility] [place] [facility] [address] [id number] [place] [address]- 3776 Oct, [facility] [address] [id number] [place] [address]- 1708 Sep, [facility] [place] [facility] [address] [id number] [place] [address]- 3649 Sep, [facility] [place] [facility] [address] [id number] [place] [address]- 2755 Sep, [facility] [place] [facility] [address] [facility] [id number] [place] [address]- 0833 Sep, [facility] [place] [facility] [address] [id number] [place] [address]- 5356 Sep, [facility] [place] [facility] [address] [id number] [place] [address]- 5058 Sep, [facility] [place] [facility] [address] [id number] [place] [address]- 9825 Sep, [facility] [place] [facility] [address] [id number] [place] [address]- 5278 Sep, [facility] [place] [facility] [address] [id number] [place] [address]- 4785 Sep, [facility] [place] [facility] [address] [id number] [place] [address]- 6182 Sep, [facility] [place] [facility] [address] [id number] [place] [address]- 0859 Sep, [facility] [place] [facility] [address] [id number] [place] [address]- 8597 Sep, [facility] [place] [facility] [address] [id number] [place] [address], [place] [address]- 3455 Sep, [facility] [place] [facility] [address] [id number] [place] [address]- 4475 Sep, [facility] [place] [facility] [address] [id number] [place] [address]- 2347 Aug, [facility] [place] [facility] [address] [id number] [place] [address]- 0238 Aug, [facility] [place] [facility] [address] [id number] [place] [address] Aug, [facility] [place] [facility] [address] [id number] [place] [address] Aug, [facility] [place] [facility] [address] [id number] [place] [address] Aug, [facility] [place] [facility] [address] [id number] [place] [address] Aug, [facility] [place] [facility] [address] [id number], [place] [address] Aug, [facility] [place] [facility] [address] [id number] [place] [address] Aug, [facility] [place] [facility] [address] [id number] [place] [address] Aug, [facility] [place] [facility] [address] [id number] [place] [address] Aug, [facility] [place] [facility] [address] [id number] [place] [address] Aug, [facility], [place] [id number] [address] Aug, [facility], [place] [id number], [place] [address] Aug, [facility], [place] [id number], [place] [address] Aug, [facility], [place] [id number], [place] [address] Aug, [facility], [place] [id number], [place] [address] Aug, [facility], [place] [id number] [place] [address] Aug, [facility], [place] [id number] [place] [address] Jul, [facility], [place] [id number] [place] [address] Jun, [facility], [place] [id number], [place] [address] Aug, [facility], [place] [id number], [place] [address] Aug, [facility], [place] [id number] [address] Aug, IMMUNIZATIONS No Known Immunizations SOCIAL HISTORY Never Assessed REASON FOR VISIT per lab results PLAN OF CARE VITAL SIGNS MEDICATIONS [...] surgery 08/16/2016 Hospitalization History Chest pain, CAD, HTN-[facility] 05/14/17 Hospitalization History chest pain, edema-[facility] 05/04/18
--- OUTSIDE RECORDS SUMMARY | 2018-09-08 15:12 | XMS REPORT ---
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 Active 76398229 Problem Urge incontinence of urine N39.41 Active 54266240 Problem Dependence on supplemental oxygen Z99.81 Active 692577161694 Problem Other chronic pain G89.29 Active 39906536 Problem Restless legs syndrome G25.81 Active 258374200 Problem Chronic systolic heart failure I50.22 Active 137364366 Problem Chronic pain syndrome G89.4 Active 770977421 Problem Gastroesophageal reflux disease without esophagitis K21.9 Active 480508825 Problem Morbid obesity E66.01 Active 977398943 Problem Morbid (severe) obesity due to excess calories E66.01 Active 575041891 Problem Lumbar pain M54.5 Active 464192240 Problem Chronic stasis dermatitis I83.10 Active 30908850 Problem Essential hypertension I10 Active 59963050 Problem Acquired hypothyroidism E03.9 Active 420338097 Problem Nocturnal hypoxia G47.34 Active 639204956 Problem Mixed hyperlipidemia E78.2 Active 765072778 Problem Renal insufficiency N28.9 Active 926179466 Problem Edema of both legs R60.0 Active 015763712 Problem Lymphedema I89.0 Active 544956654 Problem Stasis dermatitis without varicosities I87.2 Active 30683026 ALLERGIES No Information ENCOUNTERS Encounter Location Date Diagnosis [facility] [id number], [place] [address] Jun, [facility] [id number], [place] [address] 3996 Jun, [facility] [id number] [place] [address] 29347- 7465 May, [facility] [id number] [place] [address] 03264- 1411 May, [facility] [id number] [place] [address] 89157- 8788 Apr, Essential hypertension I10 ; Chronic systolic heart failure I50.22 ; Pain in right knee M25.561 ; Pain in left knee M25.562 ; Other chronic pain G89.29 ; Mixed hyperlipidemia E78.2 ; Morbid obesity E66.01 and Body mass index (BMI) 70 or greater, adult Z68.45 [facility] [id number] [place] [address] 32045- 9179 Apr, [facility] [id number] [place] [address] 92279- 4198 Apr, Acquired hypothyroidism E03.9 [facility] [id number] [place] [address] 36604- 1186 Apr, Acquired hypothyroidism E03.9 [facility] [id number] [place] [address] 64214- 9573 08 Apr, 2018 [facility] [id number] [place] [address] 83080- 3291 Apr, [facility] [id number] [place] [address] 05625- 4868 Apr, Acquired hypothyroidism E03.9 ; Morbid (severe) obesity due to excess calories E66.01 ; Body mass index (BMI) 70 or greater, adult Z68.45 ; Restless legs syndrome G25.81 ; Essential hypertension I10 and Lymphedema I89.0 [facility] [id number] [place] [address] 92651- 1320 Feb, [facility] [id number] [place] [address] 81196- 1947 Jan, [facility] [id number] [place] [address] 88375- 3451 28 Jan, 2018 [facility] [id number] [place] [address] 95970- 7374 27 Jan, 2018 Acquired hypothyroidism E03.9 ; Morbid (severe) obesity due to excess calories E66.01 ; Body mass index (BMI) 70 or greater, adult Z68.45 ; Cellulitis of left anterior lower leg L03.116 ; Restless legs syndrome G25.81 ; Nocturnal hypoxia G47.34 and Dependence on supplemental oxygen Z99.81 [facility] [id number] [place] [address] 24686- 4377 22 Jan, 2018 [facility] [address] 09362- 6344 12 Dec, 2017 [facility] [address] 58779- 5303 15 Oct, 2017 [facility] [address] 79898- 5722 07 Oct, 2017 [facility] [id number] [place] [address] 63157- 6912 Sep, [facility] [address] 34463- 2004 16 Sep, 2017 [facility] [id number] [place] [address] 95342- 2790 16 Sep, 2017 Dental examination Z01.20 [facility] [address] 46692- 3584 01 Sep, 2017 Morbid obesity due to excess calories E66.01 ; Body mass index (BMI) of 70 or greater in adult Z68.45 ; Stasis dermatitis without varicosities I87.2 ; Lymphedema I89.0 ; Renal insufficiency N28.9 ; Acquired hypothyroidism E03.9 ; Cellulitis L03.90 ; Bronchitis J40 and BMI 40.0-44.9, adult Z68.41 [facility] [id number] [place] [address] 93334- 9150 Aug, [facility] [address] [id number] [id number] Aug, Dental examination Z01.20 [facility] [id number] [place] [address] 21886- 3704 Aug, [facility] [address], [place] [address]- 2076 Jul, [facility] [id number] [place] [address] 90538- 0851 Jul, [facility] [address] [facility] [id number] [place] [address] 87866- 0951 18 Jul, 2017 [facility] [id number] [place] [address] 85505- 7605 14 Jul, 2017 [facility] [id number] [place] [address] 93525- 2634 Jul, [facility] [id number] [place] [address] 86983- 4813 Jun, [facility] [id number] [place] [address] 51540- 2335 Jun, Dependence on nocturnal oxygen therapy Z99.81 ; Morbid obesity due to excess calories E66.01 and Bronchitis J40 [facility] [address], [place] [address]- 4315 Jun, Restless legs syndrome G25.81 [facility] [id number] [place] [address] 70566- 2195 Jun, [facility] [id number] [place] [address] 70074- 4800 May, [facility] [id number] [place] [address] [id number] Apr, [facility] [address], [place] [address]- 1834 Apr, [facility] [id number] [place] [address] 30724- 6278 Apr, Essential hypertension I10 [facility] [address], [place] [address]- 6483 Apr, [facility] [id number] [place] [address] 98071- 0092 Apr, Chronic pain syndrome G89.4 and Urge incontinence of urine N39.41 [facility] [id number] [place] [address] 17247- 4423 March, Acquired hypothyroidism E03.9 [facility] [id number] [place] [address] 55897- 3980 March, [facility] [id number] [place] [address] 46333- 3277 March, [facility] [id number] [place] [address] 97676- 0677 March, Chronic pain syndrome G89.4 ; Essential [...] extremity L03.116 and Screening breast examination Z12.39 [facility] [address], [place] [address]- 9555 March, [facility] [id number] [place] [address] 23239- 7199 Feb, [facility] [id number] [place] [address] 03981- 9327 Feb, [facility] [id number] [place] [address] 82220- 4334 Feb, Chronic pain syndrome G89.4 [facility] [address], [place] [address]9675 Feb, Right foot pain M79.671 and Right foot sprain, initial encounter S93.601A [facility] [address], [place] [address]- 2555 Jan, [facility] [address], [place] [address]- 0019 Jan, [facility] [id number] [place] [address] 38965- 9749 Jan, Chronic pain syndrome G89.4 [facility] [id number] [place] [address] 89935- 6650 Jan, [facility] [id number] [place] [address] 92943- 7869 Dec, [facility] [id number] [place] [address] 28526- 1374 Dec, [facility] [id number] [place] [address] 75878- 2152 Dec, Pain in right knee M25.561 ; Pain in left knee M25.562 ; Essential hypertension I10 ; Chronic stasis dermatitis I83.10 ; Restless legs syndrome G25.81 ; Acquired hypothyroidism E03.9 ; Dependence on nocturnal oxygen therapy Z99.81 ; Mixed hyperlipidemia E78.2 ; Lymphedema I89.0 ; Chronic pain syndrome G89.4 ; Gastroesophageal reflux disease without esophagitis K21.9 and Urge incontinence of urine N39.41 [facility] [address], [place] [address]- 8115 Nov, Mixed hyperlipidemia E78.2 [facility] [address], [place] [address]- 2910 Nov, [facility] [address] [address]- 7353 Nov, [facility] [address], [place] [address]- 0921 Nov, [facility] [id number], [place] [address]0810 Nov, Stasis ulcer, left I83.029 [facility] [address], [place] [address]- 4933 Nov, [facility] [address], [place] [address]- 0155 Oct, [facility] [address], [place] [address]- 7997 Oct, [facility] [address], [place] [address]- 2225 Oct, [facility] [address], [place] [address]- 2410 Sep, [facility] [address], [place] [address]- 5108 Sep, [address] [address] Sep, [facility] [address], [place] [address]- 5204 Aug, [facility] [address], [place] [address]- 4639 Jul, [facility] [address], [place] [address]- 1681 Jul, [facility] [address], [place] [address]- 6009 Jul, [facility] [id number], [place] [address]- 3591 Jul, [facility] [id number], [place] [address]- 1597 14 Jul, 2016 Chest pain, unspecified type R07.9 ; Dyspnea on exertion R06.09 ; Essential hypertension I10 ; Hyperlipidemia, unspecified hyperlipidemia type E78.5 ; Left bundle branch block I44.7 and Hypothyroidism, unspecified type E03.9 [facility] [address] [place] [address] 62064 -8299 Jun, Fever, unspecified fever cause R50.9 ; Headache, unspecified headache type R51 ; SOB (shortness of breath) R06.02 and Strep pharyngitis J02.0 [facility] [id number] [place] [address] 80894- 9410 Jun, [facility] [address] 25366- 2370 Jun, [facility] [id number] [place] [address] 39212- 8148 Jun, Essential hypertension I10 ; Mixed hyperlipidemia E78.2 and Acquired hypothyroidism E03.9 [facility] [id number] [place] [address] 64160- 4506 Jun, Edema of both legs R60.0 ; Hypoxia R09.02 and Essential hypertension I10 [facility] [id number] [place] [address] 67256- 3953 Jun, [facility] [id number] [place] [address] 07651- 2687 Jun, Edema of both legs R60.0 ; Hypoxia R09.02 and Essential hypertension I10 [facility] [id number] [place] [address] 08057- 9840 Jun, Essential hypertension I10 ; Dependence on supplemental oxygen Z99.81 and Edema of both legs R60.0 [facility] [id number] [place] [address] 04885- 6311 May, Lumbar pain M54.5 ; Essential hypertension I10 ; Edema of both legs R60.0 ; Stasis dermatitis without varicosities I87.2 and Left knee pain M25.562 [facility] [id number] [place] [address] 90766- 1694 May, [facility] [id number] [place] [address] 83317- 1609 May, [facility] [address], [place] [address]- 8294 May, [facility] [id number] [place] [address] 37119- 6811 Apr, [facility] [id number] [place] [address] 15757- 9855 Apr, [facility] [id number] [place] [address] 27580- 5113 March, [facility] [id number] [place] [address] 58926- 5303 March, Lymphedema I89.0 ; Morbid obesity due to excess calories E66.01 ; Alteration in mobility due to weakness R53.1 and Hypoxia R09.02 [facility] [id number], [place] [address]- 3771 March, Abdominal wall mass R19.00 [facility] [id number], [place] [address]- 4972 March, [facility] [id number] [place] [address] 02612- 0980 March, Abdominal wall mass R19.00 ; Lower abdominal pain R10.30 ; Alteration in mobility due to weakness R53.1 ; Hypoxia R09.02 and Lymphedema I89.0 [facility] [address], [place] [address]- 4998 Feb, [facility] [address], [place] [address]- 1764 Feb, Acquired hypothyroidism E03.9 ; Dependence on machine for supplemental oxygen V46.2 ; Restless legs syndrome G25.81 ; Essential hypertension I10 ; Renal insufficiency N28.9 ; Chronic stasis dermatitis I83.10 ; Mixed hyperlipidemia E78.2 ; Other chronic pain 338.29 and Cellulitis of left lower extremity L03.116 [facility] [address] [place] [address] 72779- 4568 Feb, [facility] [id number] [place] [address] 96356- 9502 Feb, [facility] [id number] [place] [address] 99778 -9358 Feb, Shortness of breath R06.02 and Bronchitis J40 [facility] [address] 80375- 7080 Jan, Dependence on supplemental oxygen Z99.81 [facility] [address] 67038- 6560 Jan, [facility] [address] 66503- 8299 Dec, [facility] [address] 11101- 6384 Dec, [facility] [address] 64333- 9092 Nov, Osteoarthritis of knees, bilateral M17.[address] 92466- 3251 Nov, Dependence on machine for supplemental oxygen V46.2 ; Nocturnal hypoxia G47.34 and Urgency of urination R39.15 [facility] [id number] [place] [address] 33963- 8094 Nov, [facility] [address] 13260- 5447 Oct, Pain in right knee M25.561 and Pain in left knee M25.[address] 58135- 3797 Oct, Acquired hypothyroidism E03.9 ; Renal insufficiency N28.9 and Chronic stasis dermatitis I83.10 [facility] [address] 91426- 7108 Oct, [facility] [id number] [place] [address] 35606- 7362 Sep, Cellulitis L03.90 ; Left knee pain M25.562 ; Essential hypertension I10 ; Lymphedema I89.0 ; Lumbar pain M54.5 ; Morbid obesity due to excess calories E66.01 and Renal insufficiency N28.9 [facility] [id number] [place] [address] 46960- 9206 Sep, Cellulitis L03.90 and Lymphedema I89.0 [facility] [id number] [place] [address] 94021- 5169 Sep, [facility] [address] 34585- 7686 Sep, [facility] [id number] [place] [address] 59433- 8919 Sep, Left knee pain M25.562 ; Lumbar pain M54.5 ; Restless legs syndrome G25.81 ; Acquired hypothyroidism E03.9 and Essential hypertension I10 [facility] [id number] [place] [address] 52974- 7991 Jul, [facility] [id number] [place] [address] 25521- 8489 Jun, [facility] [id number] [place] [address] 55195- 9681 May, [facility] [id number] [place] [address] 03610- 5831 May, [facility] [id number] [place] [address] 66289- 1089 May, Hypertension 997.91 ; Restless legs syndrome [RLS] 333.94 ; Unspecified venous (peripheral) insufficiency 459.81 ; Unspecified hypothyroidism 244.9 and Other chronic pain 338.29 [facility] [id number] [place] [address] 67798- 8456 Apr, [facility] [address] [place] [address]- 7985 Apr, [facility] [address], [place] [address]- 7810 Apr, Restless legs syndrome [RLS] 333.94 ; Shortness of breath 786.05 ; Unspecified venous (peripheral) insufficiency 459.81 ; Unspecified hypothyroidism 244.9 ; Obesity, unspecified 278.00 ; Other chronic pain 338.29 ; Hypertension 997.91 and Hyperlipidemia 272.4 [facility] [address], [place] [address]- 6316 Feb, [facility] [id number] [place] [address] 56298- 3255 Feb, [facility] [id number] [place] [address] [id number]- 2489 Jan, [facility] [id number] [place] [address] 36658- 9805 Jan, [facility] [address], [place] [address]- 2497 Jan, [facility] [address], [place] [address]- 5936 Jan, [facility] [address], [place] [address]- 0044 Jan, [facility] [address], [place] [address]- 1797 Jan, [facility] [address], [place] [address]- 2162 Jan, [facility] [address] 1465 Jan, [facility] [address]- 4095 Jan, [facility] [address] 8719 Jan, [facility] [place] [facility] [address] [id number] [place] [address]- 9953 Jan, [facility] [place] [facility] [address] [id number] [place] [address]- 9432 Jan, [facility] [place] [facility] [address] [id number] [place] [address]- 9658 Jan, [facility] [place] [facility] [address] [id number] [place] [address]- 2077 Jan, [facility] [place] [facility] [address] [id number] [place] [address]- 2366 Dec, [facility] [place] [facility] [address] [id number] [place] [address]- 2502 Dec, [facility] [place] [facility] [address] [id number] [place] [address]- 9088 Nov, [facility] [place] [facility] [address] [id number] [place] [address]- 5719 Nov, [facility] [place] [facility] [address] [id number] [place] [address]- 6689 Nov, [facility] [place] [facility] [address] [id number] [place] [address]- 3910 Nov, [facility] [place] [facility] [address] [id number] [place] [address]- 8085 Nov, [facility] [place] [facility] [address] [id number] [place] [address]- 9462 Nov, [facility] [place] [facility] [address] [id number] [place] [address]- 8457 Nov, [facility] [place] [facility] [address] [id number] [place] [address]- 1102 Nov, [facility] [place] [facility] [address] [id number] [place] [address]- 2282 Nov, [facility] [place] [facility] [address] [id number], [place] [address]- 6587 Nov, [facility] [place] [facility] [address] [id number] [place] [address]- 4269 Nov, [facility] [place] [facility] [address] [id number] [place] [address]- 0532 Nov, [facility] [place] [facility] [address] [id number] [place] [address]- 5822 Nov, [facility] [place] [facility] [address] [id number] [place] [address]- 1877 Nov, [facility] [place] [facility] [address] [id number] [place] [address]- 3601 Nov, [facility] [place] [facility] [address] [id number] [place] [address]- 9587 Nov, [facility] [place] [facility] [address] [id number] [place] [address]- 9507 Oct, [facility] [place] [facility] [address] [id number] [place] [address]- 7309 Oct, [facility] [place] [facility] [address] [id number] [place] [address]- 6355 Sep, [facility] [place] [facility] [address] [id number] [place] [address]- 2947 Aug, [facility] [place] [facility] [address] [id number], [place] [address] Aug, [facility] [place] [facility] [address] [id number], [place] [address] Aug, [facility] [place] [facility] [address] [id number] [place] [address] Aug, [facility] [place] [facility] [address] [id number] [place] [address] Aug, [facility] [place] [facility] [address] [id number] [place] [address] Aug, [facility] [place] [facility] [address] [id number] [place] [address] Aug, [facility] [place] [facility] [address] [id number] [place] [address] Aug, [facility] [place] [facility] [address] [id number] [place] [address] Aug, [facility] [place] [facility] [address] [id number] [place] [address] Aug, [facility] [place] [facility] [address] [id number] [place] [address] Jun, [facility] [place] [facility] [address] [id number] [place] [address] Jun, [facility] [place] [facility] [address] [id number] [place] [address] Jun, [facility] [place] [facility] [address] [id number] [place] [address] Jun, [facility] [place] [facility] [address] [id number] [place] [address] Jun, [facility] [place] [facility] [address] [id number] [place] [address] Jun, [facility] [place] [facility] [address] [id number] [place] [address] Jun, [facility] [place] [facility] [address] [id number] [place] [address] Jun, [facility] [place] [facility] [address] [id number] [place] [address] Jun, [facility] [place] [facility] [address] [id number] [place] [address] Jun, [facility] [place] [facility] [address] [id number] [place] [address] May, [facility] [place] [facility] [address] [id number] [place] [address] May, [facility] [place] [facility] [address] [id number] [place] [address] May, 2013 [facility] [place] [facility] [address] [id number] [place] [address] May, [facility] [place] [facility] [address] [id number] [place] [address] May, 2013 [facility] [place] [facility] [address] [id number] [place] [address] May, 2013 [facility] [place] [facility] [address] [id number] [place] [address] May, [facility] [place] [facility] [address] [id number] [place] [address] May, [facility] [place] [facility] [address] [id number] [place] [address] May, [facility] [place] [facility] [address] [id number] [place] [address] May, 2013 [facility] [place] [facility] [address] [id number] [place] [address] May, [facility] [place] [facility] [address] [id number] [place] [address] 4217 May, 2013 [facility] [place] [facility] [address] [id number] [place] [address] May, 2013 [facility] [place] [facility] [address] [id number] [place] [address]- 8153 May, [facility] [place] [facility] [address] [id number] [place] [address]- 8987 May, [facility] [place] [facility] [address] [id number] [place] [address]- 0421 May, [facility] [place] [facility] [address] [id number] [place] [address]- 9594 May, 2013 [facility] [place] [facility] [address] [id number] [place] [address]- 2310 May, [facility] [place] [facility] [address] [id number] [place] [address]- 3117 Apr, [facility] [place] [facility] [address] [id number] [place] [address]- 3162 Apr, [facility] [place] [facility] [address] [id number] [place] [address]- 1646 Apr, [facility] [place] [facility] [address] [id number] [place] [address]- 7287 Apr, [facility] [place] [facility] [address] [id number] [place] [address]- 5853 Apr, [facility] [place] [facility] [address] [id number] [place] [address]- 2565 Apr, [facility] [place] [facility] [address] [id number] [place] [address]- 9870 Apr, [facility] [place] [facility] [address] [id number] [place] [address]- 2853 Apr, [facility] [place] [facility] [address] [id number] [place] [address]- 4386 Apr, [facility] [place] [facility] [address] [id number] [place] [address]- 0238 Apr, [facility] [place] [facility] [address] [id number] [place] [address]- 1775 Apr, [facility] [place] [facility] [address] [id number] [place] [address]- 0181 Apr, [facility] [place] [facility] [address] [id number] [place] [address]- 5761 March, [facility] [place] [facility] [address] [id number] [place] [address]- 8519 March, [facility] [place] [facility] [address] [id number] [place] [address]- 2501 March, [facility] [place] [facility] [address] [id number] [place] [address]- 4508 March, [facility] [place] [facility] [address] [id number] [place] [address]- 8680 March, [facility] [place] [facility] [address] [id number] [place] [address]- 4767 March, [facility] [place] [facility] [address] [id number] [place] [address]- 5821 March, [facility] [place] [facility] [address] [id number] [place] [address] 1860 March, [facility] [place] [facility] [address] [id number] [place] [address]- 3672 March, [facility] [place] [facility] [address] [id number] [place] [address] 7994 March, [facility] [place] [facility] [address] [id number] [place] [address]- 7003 March, [facility] [place] [facility] [address] [id number] [place] [address]- 4796 Feb, [facility] [place] [facility] [address] [id number] [place] [address]- 0716 Feb, [facility] [place] [facility] [address] [id number] [place] [address]- 0240 Feb, [facility] [place] [facility] [address] [id number] [place] [address]- 5050 Feb, [facility] [place] [facility] [address] [id number] [place] [address]- 8634 Feb, [facility] [place] [facility] [address] [id number] [place] [address]- 9887 Feb, [facility] [place] [facility] [address] [id number] [place] [address]- 5228 Feb, [facility] [place] [facility] [address] [id number] [place] [address]- 7963 Feb, [facility] [place] [facility] [address] [id number] [place] [address]- 8249 Feb, [facility] [place] [facility] [address] [id number] [place] [address]- 9244 Feb, [facility] [place] [facility] [address] [id number] [place] [address]- 3540 Feb, [facility] [place] [facility] [address] [id number] [place] [address]- 3368 Feb, [facility] [place] [facility] [address] [id number] [place] [address]- 3921 Feb, [facility] [place] [facility] [address] [id number] [place] [address]- 6916 Feb, [facility] [place] [facility] [address] [id number] [place] [address]- 5735 Feb, [facility] [place] [facility] [address] [id number] [place] [address]- 9405 Feb, [facility] [place] [facility] [address] [id number] [place] [address]- 8841 Feb, [facility] [place] [facility] [address] [id number] [place] [address]- 1160 Feb, [facility] [place] [facility] [address] [id number] [place] [address]- 1322 Feb, [facility] [place] [facility] [address] [id number] [place] [address]- 2847 Feb, [facility] [place] [facility] [address] [id number] [place] [address]- 1207 Jan, [facility] [place] [facility] [address] [id number] [place] [address]- 2134 Jan, [facility] [place] [facility] [address] [id number] [place] [address]- 8932 Jan, [facility] [place] [facility] [address] [id number] [place] [address]- 3824 25 Jan, 2014 [facility] [place] [facility] [address] [id number] [place] [address]- 3771 24 Jan, 2014 [facility] [place] [facility] [address] [id number] [place] [address]- 9303 24 Jan, 2014 [facility] [place] [facility] [address] [id number] [place] [address]- 5271 18 Jan, 2014 [facility] [place] [facility] [address] [id number] [place] [address]- 3820 18 Jan, 2014 [facility] [place] [facility] [address] [id number] [place] [address]- 4915 Jan, [facility] [place] [facility] [address] [id number] [place] [address]- 1353 14 Jan, 2014 [facility] [place] [facility] [address] [id number] [place] [address]- 9964 Jan, [facility] [place] [facility] [address] [id number] [place] [address]- 4691 Jan, [facility] [place] [facility] [address] [id number] [place] [address]- 8847 05 Jan, 2014 [facility] [place] [facility] [address] [facility] [id number] [place] [address]- 6726 Jan, [facility] [place] [facility] [address] [id number] [place] [address]- 7447 Dec, [facility] [place] [facility] [address] [id number] [place] [address]- 9018 Dec, [facility] [place] [facility] [address] [id number] [place] [address] Dec, [facility] [place] [facility] [address] [id number] [place] [address]- 4957 Dec, [facility] [place] [facility] [address] [id number] [place] [address]- 9210 Dec, [facility] [place] [facility] [address] [id number] [place] [address]- 7373 Dec, [facility] [place] [facility] [address] [id number] [place] [address]- 7870 Dec, [facility] [place] [facility] [address] [id number] [place] [address]- 8924 Dec, [facility] [place] [facility] [address] [id number] [place] [address]- 5511 Dec, [facility] [place] [facility] [address] [id number] [place] [address]- 1543 Nov, [facility] [place] [facility] [address] [id number] [place] [address]- 5090 Nov, [facility] [place] [facility] [address] [id number] [place] [address]- 2763 Nov, [facility] [place] [facility] [address] [id number] [place] [address]- 0200 Nov, [facility] [place] [facility] [address] [id number] [place] [address]- 8560 Oct, [facility] [place] [facility] [address] [id number] [place] [address]- 2298 Oct, [facility] [place] [facility] [address] [id number] [place] [address]- 9603 Oct, [facility] [place] [facility] [address] [id number] [place] [address]- 4888 Oct, [facility] [place] [facility] [address] [id number] [place] [address]- 5615 Oct, [facility] [place] [facility] [address] [id number] [place] [address]- 7596 Oct, [facility] [place] [facility] [address] [id number] [place] [address]- 7712 Oct, [facility] [place] [facility] [address] [id number] [place] [address]- 1677 23 Oct, 2012 [facility] [address] [id number] [place] [address]- 2942 20 Oct, 2013 [facility] [address] [id number] [place] [address]- 8406 19 Oct, 2013 [facility] [address] [id number] [place] [address]- 9071 19 Oct, 2013 [facility] [address] [id number] [place] [address]- 5493 18 Oct, 2013 [facility] [address] [id number] [place] [address]- 3669 18 Oct, 2013 [facility] [address] [id number] [place] [address]- 2906 17 Oct, 2013 [facility] [address] [id number] [place] [address]- 7963 17 Oct, 2013 [facility] [address] [id number] [place] [address]- 3116 17 Oct, 2013 [facility] [address] [id number] [place] [address]- 6276 17 Oct, 2013 [facility] [address] [id number] [place] [address]- 6949 17 Oct, 2013 [facility] [address] [id number] [place] [address]- 2990 17 Oct, 2013 [facility] [address] [id number] [place] 4562 11 Oct, 2013 [facility] [address] [id number] [place] [address]- 6668 11 Oct, 2013 [facility] [address] [id number] [place] [address]- 0988 27 Sep, 2013 [facility] [address] [id number] [place] [address]- 1192 Sep, [facility] [place] [facility] [address] [id number] [place] [address]- 8176 Sep, [facility] [place] [facility] [address] [id number] [place] [address]- 8066 Sep, [facility] [place] [facility] [address] [id number] [place] [address]- 2909 18 Sep, 2013 [facility] [place] [facility] [address] [id number] [place] [address]- 0655 Sep, [facility] [place] [facility] [address] [id number] [place] [address]- 1916 14 Sep, 2013 [facility] [place] [facility] [address] [id number] [place] [address]- 9354 Sep, [facility] [place] [facility] [address] [id number] [place] [address]- 5811 Sep, [facility] [place] [facility] [address] [id number], [place] [address]- 3801 Sep, [facility] [place] [facility] [address] [id number] [place] [address]- 3037 Sep, [facility] [place] [facility] [address] [id number], [place] [address]- 7558 Sep, [facility] [place] [facility] [address] [id number], [place] [address]- 1789 Aug, [facility] [place] [facility] [address] [id number], [place] [address]- 4936 Aug, [facility] [place] [facility] [address] [id number], [place] [address]- 9684 Aug, [facility] [place] [facility] [address] [id number], [place] [address]- 1352 Aug, [facility] [place] [facility] [address] [id number], [place] [address]- 1360 Aug, [facility] [place] [facility] [address] [id number], [place] [address]- 0408 Aug, 2012 [facility] [place] [facility] [address] [id number] [place] [address]- 9271 Aug, 2012 [facility] [place] [facility] [address] [id number] [place] [address] Aug, 2012 [facility] [place] [facility] [address] [id number] [place] [address]- 9085 Aug, 2012 [facility] [place] [facility] [address] [id number] [place] [address]- 1670 16 Aug, 2012 [facility] [place] [facility] [address] [id number] [place] [address]- 7101 10 Aug, 2012 [facility] [place] [facility] [address] [id number] [place] [address]- 9608 10 Aug, 2013 [facility] [place] [facility] [address] [id number] [place] [address]- 4309 08 Aug, 2013 [facility] [place] [facility] [address] [id number] [place] [address]- 7653 Aug, [facility] [place] [facility] [address] [id number] [place] [address]- 5414 Aug, [facility] [place] [facility] [address] [id number] [place] [address]- 2423 Aug, [facility] [place] [facility] [address] [id number], [place] [address]- 0540 Aug, [facility] [place] [facility] [address] [id number], [place] [address]- 2866 Jul, [facility] [place] [facility] [address] [id number] [place] [address]- 3922 Jun, [facility] [place] [facility] [address] [id number] [place] [address]- 9448 Jun, [facility] [place] [facility] [address] [id number] [place] [address]- 8271 May, [facility] [place] [facility] [address] [id number] [place] [address]- 3255 May, [facility] [address] [id number] [place] [address]- 5870 Apr, [facility] [place] [facility] [address] [id number] [place] [address]- 4997 Apr, [facility] [place] [facility] [address] [id number] [place] [address]- 2242 Apr, [facility] [place] [facility] [address] [id number] [place] [address]- 8321 Apr, [facility] [place] [facility] [address] [id number] [place] [address]- 6123 Apr, [facility] [place] [facility] [address] [id number] [place] [address]- 1069 Apr, [facility] [place] [facility] [address] [id number] [place] [address]- 9153 Apr, [facility] [place] [facility] [address] [id number] [place] [address]- 9664 Apr, [facility] [place] [facility] [address] [id number] [place] [address]- 4078 Apr, [facility] [place] [facility] [address] [id number] [place] [address]- 3345 Apr, [facility] [place] [facility] [address] [id number] [place] [address]- 3328 Apr, [facility] [place] [facility] [address] [id number] [place] [address]- 2036 March, [facility] [place] [facility] [address] [id number] [place] [address]- 0268 March, [facility] [place] [facility] [address] [id number] [place] [address]- 9036 March, [facility] [place] [facility] [address] [id number] [place] [address]- 3795 March, [facility] [address] [id number] [place] [address]- 0812 March, [facility] [address] [id number] [place] [address]- 3355 Feb, [facility] [address] [id number] [place] [address]- 1789 Feb, [facility] [address] [id number] [place] [address]- 8943 Jan, [facility] [address] [id number] [place] [address]- 1107 Jan, [facility] [address] [id number] [place] [address]- 1297 Jan, [facility] [address] [id number] [place] [address]- 4838 Jan, [facility] [address] [id number] [place] [address]- 8373 Jan, [facility] [address] [id number] [place] [address]- 0581 Dec, [facility] [address] [id number] [place] [address]- 0983 Dec, [facility] [address] [id number] [place] [address]- 8257 Nov, [facility] [place] [facility] [address] [id number], [place] [address]- 3786 Nov, [facility] [place] [facility] [address] [id number] [place] [address]- 2952 Nov, [facility] [place] [facility] [address] [id number] [place] [address]- 0388 16 Nov, 2012 [facility] [place] [facility] [address] [id number] [place] [address]- 8011 Nov, [facility] [place] [facility] [address] [id number] [place] [address]- 9213 14 Nov, 2012 [facility] [address] [id number] [place] [address]- 4983 14 Nov, 2012 [facility] [place] [facility] [address] [id number] [place] [address]- 4517 11 Nov, 2012 [facility] [address] [id number] [place] [address]- 4031 Nov, [facility] [place] [facility] [address] [id number] [place] [address]- 9458 03 Nov, 2012 [facility] [address] [id number] [place] [address]- 8874 Nov, [facility] [place] [facility] [address] [id number] [place] [address]- 9048 Oct, [facility] [address] [id number] [place] [address]- 3126 Oct, [facility] [place] [facility] [address] [id number] [place] [address]- 0035 Sep, [facility] [place] [facility] [address] [id number] [place] [address]- 0108 Sep, [facility] [address] [id number] [place] [address]- 7387 Sep, [facility] [place] [facility] [address] [id number] [place] [address]- 3610 Sep, [facility] [place] [facility] [address] [id number] [place] [address]- 2110 Sep, [facility] [place] [facility] [address] [id number] [place] [address]- 0796 Sep, [facility] [place] [facility] [address] [id number] [place] [address]- 9859 Sep, [facility] [place] [facility] [address] [id number] [place] [address]- 9359 Sep, [facility] [place] [facility] [address] [id number] [place] [address]- 9350 Sep, [facility] [place] [facility] [address] [id number] [place] [address]- 0177 Sep, [facility] [place] [facility] [address] [id number] [place] [address]- 9444 Sep, [facility] [place] [facility] [id number] [place] [address], [place] [address]- 1786 Sep, [facility] [place] [facility] [address] [id number] [place] [address]- 5684 Sep, [facility] [place] [facility] [address] [id number] [place] [address]- 1376 Sep, [facility] [place] [facility] [address] [id number] [place] [address]- 4495 Aug, [facility] [place] [facility] [address] [id number] [place] [address]- 4072 Aug, [facility] [place] [facility] [address] [id number] [place] [address]- 9835 Aug, [facility] [place] [facility] [address] [id number] [place] [address]- 1101 Aug, [facility] [place] [facility] [address] [facility] [id number] [place] [address]- 5576 Aug, [facility] [place] [facility] [address] [id number], [place] [address]- 7879 Aug, [facility] [place] [facility] [address] [id number] [place] [address]- 8806 Aug, [facility] [place] [facility] [address] [id number] [place] [address]- 5098 Aug, [facility] [place] [facility] [address] [id number] [place] [address]- 3544 Aug, [facility] [place] [facility] [address] [id number], [place] [address]- 7161 Aug, [facility] [id number], [place] [address]- 9264 Aug, [facility] [id number], [place] [address] Aug, [facility] [id number], [place] [address] Aug, [facility] [address] [facility] [id number], [place] [address] Aug, [facility] [id number], [place] [address] Aug, [facility] [id number] [place] [address] Aug, [facility] [id number], [place] [address] Aug, [facility] [id number], [place] [address] Jul, [facility] [id number], [place] [address] Jun, [facility] [id number], [place] [address] Aug, [facility] [id number], [place] [address] Aug, [facility] [id number], [place] [address] Aug, IMMUNIZATIONS No Known Immunizations SOCIAL HISTORY Never Assessed REASON FOR VISIT update referral PLAN OF CARE VITAL SIGNS MEDICATIONS Unknown [...] surgery 08/16/2016 Hospitalization History Chest pain, CAD, HTN-[facility] 05/14/17 Hospitalization History chest pain, edema-[facility] 05/04/18
--- OUTSIDE RECORDS SUMMARY | 2018-09-08 15:13 | XMS REPORT ---
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 Active 89631183 Problem Urge incontinence of urine N39.41 Active 10812029 Problem Dependence on supplemental oxygen Z99.81 Active 380317601135 Problem Other chronic pain G89.29 Active 72003386 Problem Restless legs syndrome G25.81 Active 187165200 Problem Chronic systolic heart failure I50.22 Active 022808042 Problem Chronic pain syndrome G89.4 Active 645395458 Problem Gastroesophageal reflux disease without esophagitis K21.9 Active 119110520 Problem Morbid obesity E66.01 Active 134583886 Problem Morbid (severe) obesity due to excess calories E66.01 Active 595616106 Problem Lumbar pain M54.5 Active 086949219 Problem Chronic stasis dermatitis I83.10 Active 35145711 Problem Essential hypertension I10 Active 62529255 Problem Acquired hypothyroidism E03.9 Active 961465154 Problem Nocturnal hypoxia G47.34 Active 551523884 Problem Mixed hyperlipidemia E78.2 Active 303957192 Problem Renal insufficiency N28.9 Active 560204953 Problem Edema of both legs R60.0 Active 638470993 Problem Lymphedema I89.0 Active 592475417 Problem Stasis dermatitis without varicosities I87.2 Active 19444657 ALLERGIES No Information ENCOUNTERS Encounter Location Date Diagnosis [facility] [id number], [place] [address] Jun, [facility] [id number] [address] 5490 May, [facility] [id number] [address] 2216 May, [facility] [id number] [place] [address] 32446- 8008 19 Apr, 2018 Essential hypertension I10 ; Chronic systolic heart failure I50.22 ; Pain in right knee M25.561 ; Pain in left knee M25.562 ; Other chronic pain G89.29 ; Mixed hyperlipidemia E78.2 ; Morbid obesity E66.01 and Body mass index (BMI) 70 or greater, adult Z68.45 [facility] [id number] [place] [address] 84791- 0367 18 Apr, 2018 [facility] [id number] [place] [address] 41128- 5435 Apr, Acquired hypothyroidism E03.9 [facility] [id number] [place] [address] 38501- 1006 Apr, Acquired hypothyroidism E03.9 [facility] [id number] [place] [address] 78983- 3986 Apr, [facility] [id number] [place] [address] 02558- 6161 Apr, [facility] [id number] [place] [address] 37845- 7381 Apr, Acquired hypothyroidism E03.9 ; Morbid (severe) obesity due to excess calories E66.01 ; Body mass index (BMI) 70 or greater, adult Z68.45 ; Restless legs syndrome G25.81 ; Essential hypertension I10 and Lymphedema I89.0 [facility] [id number] [place] [address] 10053- 3902 Feb, [facility] [id number] [place] [address] 26919- 8500 Jan, [facility] [id number] [place] [address] 50514- 3023 Jan, [facility] [id number] [place] [address] 42743- 9588 Jan, Acquired hypothyroidism E03.9 ; Morbid (severe) obesity due to excess calories E66.01 ; Body mass index (BMI) 70 or greater, adult Z68.45 ; Cellulitis of left anterior lower leg L03.116 ; Restless legs syndrome G25.81 ; Nocturnal hypoxia G47.34 and Dependence on supplemental oxygen Z99.81 [facility] [id number] [place] [address] 74009- 2737 Jan, [facility] [id number] [place] [address] 08980- 0690 Dec, [facility] [address] 11307- 2123 Oct, [facility] [address] 95573- 1806 Oct, [facility] [address] 66957- 7288 Sep, [facility] [id number] [place] [address] 09673- 2800 Sep, [facility] [address] 64258- 1920 Sep, Dental examination Z01.20 [facility] [id number] [place] [address] 38413- 2025 Sep, Morbid obesity due to excess calories E66.01 ; Body mass index (BMI) of 70 or greater in adult Z68.45 ; Stasis dermatitis without varicosities I87.2 ; Lymphedema I89.0 ; Renal insufficiency N28.9 ; Acquired hypothyroidism E03.9 ; Cellulitis L03.90 ; Bronchitis J40 and BMI 40.0-44.9, adult Z68.41 [facility] [id number] [place] [address] 71651- 9635 Aug, [facility] [place] [facility] [id number] [place] [address] [id number] Aug, Dental examination Z01.20 [facility] [address] [place] [address] 12549- 0690 Aug, [facility] [id number] [place] [address] 15949- 3127 Jul, [facility] [id number] [place] [address] 82613- 2657 Jul, [facility] [address] 52253- 7211 18 Jul, 2017 [facility] [id number] [place] [address] 33734- 2528 Jul, [facility] [id number] [place] [address] 40284- 6246 Jul, [facility] [id number] [place] [address] 30783- 0931 Jun, [facility] [id number] [place] [address] 95084- 0068 Jun, Dependence on nocturnal oxygen therapy Z99.81 ; Morbid obesity due to excess calories E66.01 and Bronchitis J40 [facility] [id number] [place] [address] 81851- 2505 Jun, Restless legs syndrome G25.81 [facility] [id number] [place] [address] 82863- 3621 Jun, [facility] [id number] [place] [address] 76495- 4342 May, [facility] [id number] [place] [address] [id number] Apr, [facility] [id number] [place] [address] 36040- 0042 Apr, [facility] [id number] [place] [address] 91534- 8172 Apr, Essential hypertension I10 [facility] [id number] [place] [address] 99113- 2283 Apr, [address] [place] [address] 15277- 5846 Apr, Chronic pain syndrome G89.4 and Urge incontinence of urine N39.41 [facility] [id number] [place] [address] 25642- 9254 March, Acquired hypothyroidism E03.9 [facility] [id number] [place] [address] 15115- 8021 March, [facility] [id number] [place] [address] 09027- 6334 March, [facility] [id number] [place] [address] 13340- 4327 March, Chronic pain syndrome G89.4 ; Essential [...] extremity L03.116 and Screening breast examination Z12.39 [facility] [id number] [place] [address] 96165- 9414 March, [address] [address] [place] [address] 48644- 2245 Feb, [facility] [id number] [place] [address] 27509- 8718 Feb, [facility] [address] [place] [address] 99721- 6871 Feb, Chronic pain syndrome G89.4 [facility] [address] [place] [address] 51180 -9373 Feb, Right foot pain M79.671 and Right foot sprain, initial encounter S93.601A [facility] [id number], [place] [address]- 8482 Jan, [facility] [address] [place] [address] 11887- 7371 Jan, [facility] [address] [place] [address] 83529- 8304 Jan, Chronic pain syndrome G89.4 [facility] [id number] [place] [address] 03239- 4558 Jan, [facility] [address] [place] [address] 02601- 1471 Dec, [facility] [id number] [place] [address] 03152- 6474 Dec, [facility] [id number] [place] [address] 92976- 8693 Dec, Pain in right knee M25.561 ; Pain in left knee M25.562 ; Essential hypertension I10 ; Chronic stasis dermatitis I83.10 ; Restless legs syndrome G25.81 ; Acquired hypothyroidism E03.9 ; Dependence on nocturnal oxygen therapy Z99.81 ; Mixed hyperlipidemia E78.2 ; Lymphedema I89.0 ; Chronic pain syndrome G89.4 ; Gastroesophageal reflux disease without esophagitis K21.9 and Urge incontinence of urine N39.41 [facility] [address], [place] [address]- 2123 Nov, Mixed hyperlipidemia E78.2 [facility] [address] [place] [address] 99078- 3860 Nov, [facility] [address], [place] [address]- 7506 Nov, [facility] [id number] [place] [address] 97043- 2178 Nov, [facility] [address], [place] [address]5657 Nov, Stasis ulcer, left I83.029 [facility] [address], [place] [address]- 3450 Nov, [facility] [address], [place] [address]- 3963 Oct, [facility] [address], [place] [address]- 4610 Oct, [facility] [address], [place] [address]- 7009 Oct, [facility] [address], [place] [address]- 6753 Sep, [facility] [address] [address]- 1148 Sep, [id number] [id number] Sep, [facility] [address], [place] [address]- 9714 Aug, [facility] [address], [place] [address]- 1767 Jul, [facility] [address] [address]- 2960 Jul, [facility] [id number], [place] [address]- 3488 Jul, [facility] [address], [place] [address]- 0361 Jul, [facility] [id number], [place] [address]- 6666 Jul, Chest pain, unspecified type R07.9 ; Dyspnea on exertion R06.09 ; Essential hypertension I10 ; Hyperlipidemia, unspecified hyperlipidemia type E78.5 ; Left bundle branch block I44.7 and Hypothyroidism, unspecified type E03.9 [facility] [id number], [place] [address]38 Jun, Fever, unspecified fever cause R50.9 ; Headache, unspecified headache type R51 ; SOB (shortness of breath) R06.02 and Strep pharyngitis J02.0 [address] 72010- 7418 Jun, [address] [address] 73792- 6631 Jun, [address] 99151- 9213 Jun, Essential hypertension I10 ; Mixed hyperlipidemia E78.2 and Acquired hypothyroidism E03.9 [address] [address] 21753- 7929 Jun, Edema of both legs R60.0 ; Hypoxia R09.02 and Essential hypertension I10 [address] [address] 69293- 6482 Jun, [address] 74113- 8865 Jun, Edema of both legs R60.0 ; Hypoxia R09.02 and Essential hypertension I10 [address] [facility] [address] 17532- 7074 Jun, Essential hypertension I10 ; Dependence on supplemental oxygen Z99.81 and Edema of both legs R60.0 [address] [facility] [address] 25035- 1804 May, Lumbar pain M54.5 ; Essential hypertension I10 ; Edema of both legs R60.0 ; Stasis dermatitis without varicosities I87.2 and Left knee pain M25.562 [address] [facility] [address] 40022- 6340 May, [address] [address] 70334- 4346 May, [address] [facility] [address] 40823- 2870 May, [facility] [address] [place] [address] 02224- 0993 Apr, [facility] [id number] [place] [address] 33725- 9485 Apr, [facility] [id number] [place] [address] 42575- 4521 March, [facility] [id number] [place] [address] 95548- 0340 March, Lymphedema I89.0 ; Morbid obesity due to excess calories E66.01 ; Alteration in mobility due to weakness R53.1 and Hypoxia R09.02 [facility] [id number] [place] [address] 33717- 4500 March, Abdominal wall mass R19.00 [facility] [id number] [place] [address] 15716- 0078 March, [facility] [id number] [place] [address] 55797- 2881 March, Abdominal wall mass R19.00 ; Lower abdominal pain R10.30 ; Alteration in mobility due to weakness R53.1 ; Hypoxia R09.02 and Lymphedema I89.0 [facility] [id number] [place] [address] 99969- 9634 Feb, [facility] [id number] [place] [address] 00297- 1152 Feb, Acquired hypothyroidism E03.9 ; Dependence on machine for supplemental oxygen V46.2 ; Restless legs syndrome G25.81 ; Essential hypertension I10 ; Renal insufficiency N28.9 ; Chronic stasis dermatitis I83.10 ; Mixed hyperlipidemia E78.2 ; Other chronic pain 338.29 and Cellulitis of left lower extremity L03.116 [facility] [id number] [place] [address] 79877- 1374 Feb, [facility] [id number] [place] [address] 85429- 6968 Feb, [facility] [id number] [place] [address] 89731 -3709 Feb, Shortness of breath R06.02 and Bronchitis J40 [facility] [id number] [place] [address] 79690- 4631 Jan, Dependence on supplemental oxygen Z99.81 [address] [address] 25053- 1193 Jan, [address] [facility] [address] 45871- 8856 Dec, [address] [facility] [address] 93998- 5889 Dec, [address] [facility] [address] 87093- 9790 Nov, Osteoarthritis of knees, bilateral M17.0 [address] [facility] [address] 36574- 2858 Nov, Dependence on machine for supplemental oxygen V46.2 ; Nocturnal hypoxia G47.34 and Urgency of urination R39.15 [facility] [id number] [place] [address] 90654- 1055 Nov, [facility] [id number] [place] [address] 61836- 1675 Oct, Pain in right knee M25.561 and Pain in left knee M25.562 [facility] [id number] [place] [address] 58932- 4262 Oct, Acquired hypothyroidism E03.9 ; Renal insufficiency N28.9 and Chronic stasis dermatitis I83.10 [facility] [id number] [place] [address] 91409- 8058 Oct, [address] [id number] [place] [address] 43463- 4338 Sep, Cellulitis L03.90 ; Left knee pain M25.562 ; Essential hypertension I10 ; Lymphedema I89.0 ; Lumbar pain M54.5 ; Morbid obesity due to excess calories E66.01 and Renal insufficiency N28.9 [address] [facility] [address] 69305- 2141 Sep, Cellulitis L03.90 and Lymphedema I89.0 [address] [facility] 36986- 3788 Sep, [address] [facility] [address] 97151- 1365 Sep, [address] [facility] [address] 67400- 7548 Sep, Left knee pain M25.562 ; Lumbar pain M54.5 ; Restless legs syndrome G25.81 ; Acquired hypothyroidism E03.9 and Essential hypertension I10 [address] [facility] 41941- 4478 Jul, [address] [address] 70361- 4893 Jun, [address] [facility] [address] 18718- 3116 May, [facility] [id number] [place] [address] 97759- 8480 May, [address] [facility] 98096- 4281 May, Hypertension 997.91 ; Restless legs syndrome [RLS] 333.94 ; Unspecified venous (peripheral) insufficiency 459.81 ; Unspecified hypothyroidism 244.9 and Other chronic pain 338.29 [address] [facility] [address] 94354- 7693 Apr, [address] [facility] [address] 15631- 8711 Apr, [address] [place] [address]- 7002 Apr, Restless legs syndrome [RLS] 333.94 ; Shortness of breath 786.05 ; Unspecified venous (peripheral) insufficiency 459.81 ; Unspecified hypothyroidism 244.9 ; Obesity, unspecified 278.00 ; Other chronic pain 338.29 ; Hypertension 997.91 and Hyperlipidemia 272.4 [facility] [address] [address]- 3671 Feb, [facility] [id number] [place] [address] 352135- 7532 Feb, [facility] [id number] [place] [address] 64769- 5659 Jan, [facility] [id number] [place] [address] 00069328- 7937 Jan, [facility] [id number] [place] [address] 32402- 9257 Jan, [facility] [id number] [address]- 1580 Jan, [facility] [id number] [address]- 7406 Jan, [facility] [address], [place] [address]- 8913 Jan, [facility] [address], [place] [address]- 5205 Jan, [facility] [address] [address]- 7890 Jan, [facility] [id number] 6251 Jan, [facility] [address] 5105 Jan, [facility] [address] 6028 Jan, [facility] [place] [facility] [address] [id number] [place] [address]- 1461 11 Jan, 2015 [facility] [place] [facility] [address] [id number] [place] [address]- 4200 Jan, [facility] [place] [facility] [address] [id number] [place] [address]- 8388 Jan, [facility] [place] [facility] [address] [id number] [place] [address]- 3156 Dec, [facility] [place] [facility] [address] [id number] [place] [address]- 8089 Dec, [facility] [place] [facility] [address] [id number] [place] [address]- 2034 Nov, [facility] [place] [facility] [address] [id number] [place] [address]- 3833 Nov, [facility] [place] [facility] [address] [id number] [place] [address]- 3524 Nov, [facility] [place] [facility] [address] [id number] [place] [address]- 1729 Nov, [facility] [place] [facility] [address] [id number] [place] [address]- 3023 Nov, [facility] [place] [facility] [address] [id number] [place] [address]- 2000 Nov, [facility] [place] [facility] [address] [id number] [place] [address]- 5250 Nov, [facility] [place] [facility] [address] [id number] [place] [address]- 4768 Nov, [facility] [place] [facility] [address] [id number] [place] [address]- 0559 Nov, [facility] [place] [facility] [address] [id number] [place] [address]- 4818 14 Nov, 2014 [facility] [place] [facility] [address] [id number], [place] [address]- 0639 Nov, [facility] [place] [facility] [address] [id number] [place] [address]- 9672 Nov, [facility] [place] [facility] [address] [id number] [place] 8044 Nov, [facility] [place] [facility] [address] [id number] [place] [address]- 2742 Nov, [facility] [place] [facility] [address] [id number] [place] [address]- 6612 Nov, [facility] [place] [facility] [address] [id number] [place] [address]- 5485 Nov, [facility] [place] [facility] [address] [id number] [place] [address]- 7712 Oct, [facility] [place] [facility] [address] [id number] [place] [address]- 3338 Oct, [facility] [place] [facility] [address] [id number] [place] [address]- 9228 Sep, [facility] [place] [facility] [address] [id number] [place] [address]- 6807 Aug, [facility] [place] [facility] [address] [id number] [place] [address]- 8563 Aug, [facility] [place] [facility] [address] [id number], [place] [address]- 5635 Aug, [facility] [place] [facility] [address] [id number], [place] [address]- 1210 Aug, [facility] [place] [facility] [address] [id number] [place] [address]- 2235 Aug, [facility] [place] [facility] [address] [id number] [place] [address]- 3090 Aug, [facility] [place] [facility] [address] [id number] [place] [address]- 0805 Aug, [facility] [place] [facility] [address] [id number] [place] [address]- 3398 Aug, [facility] [place] [facility] [address] [id number] [place] [address]- 5967 Aug, [facility] [place] [facility] [address] [id number] [place] [address]- 4299 Aug, [facility] [place] [facility] [address] [id number] [place] [address]- [address] Jun, [facility] [place] [facility] [address] [id number] [place] [address] Jun, [facility] [place] [facility] [address] [id number] [place] [address] Jun, [facility] [place] [facility] [address] [id number] [place] [address] Jun, [facility] [place] [facility] [address] [id number] [place] [address] Jun, [facility] [place] [facility] [address] [id number] [place] [address] Jun, [facility] [place] [facility] [address] [id number] [place] [address] Jun, [facility] [place] [facility] [address] [id number] [place] [address] Jun, [facility] [place] [facility] [address] [id number] [place] [address] Jun, [facility] [place] [facility] [address] [id number] [place] [address] Jun, [facility] [place] [facility] [address] [id number] [place] [address] May, [facility] [place] [facility] [address] [id number] [place] [address] May, [facility] [place] [facility] [address] [id number] [place] [address] May, [facility] [place] [facility] [address] [id number] [place] [address] May, 2013 [facility] [place] [facility] [address] [id number] [place] [address] May, 2013 [facility] [place] [facility] [address] [id number] [place] [address] May, 2013 [facility] [place] [facility] [address] [id number] [place] [address]- [address] May, 2013 [facility] [place] [facility] [address] [id number] [place] [address] May, 2013 [facility] [place] [facility] [address] [id number] [place] [address] May, 2013 [facility] [place] [facility] [address] [id number] [place] [address] May, 2013 [facility] [place] [facility] [address] [id number] [place] [address] May, 2013 [facility] [place] [facility] [address] [id number] [place] [address] May, 2013 [facility] [place] [facility] [address] [id number] [place] [address] May, [facility] [place] [facility] [address] [id number] [place] [address] May, 2013 [facility] [place] [facility] [address] [id number] [place] [address] May, [facility] [place] [facility] [address] [id number] [place] [address] May, 2013 [facility] [place] [facility] [address] [id number] [place] [address] May, [facility] [place] [facility] [address] [id number] [place] [address] May, 2013 [facility] [place] [facility] [address] [id number] [place] [address] Apr, [facility] [place] [facility] [address] [id number] [place] [address] Apr, [facility] [place] [facility] [address] [id number] [place] [address] Apr, [facility] [place] [facility] [address] [id number] [place] [address] Apr, [facility] [place] [facility] [address] [id number] [place] [address] Apr, [facility] [place] [facility] [address] [id number] [place] [address] Apr, [facility] [place] [facility] [address] [id number] [place] [address] Apr, [facility] [place] [facility] [address] [id number] [place] [address] Apr, [facility] [place] [facility] [address] [id number] [place] [address] Apr, [facility] [place] [facility] [address] [id number] [place] [address] Apr, [facility] [place] [facility] [address] [id number] [place] [address] Apr, [facility] [place] [facility] [address] [id number] [place] [address] Apr, [facility] [place] [facility] [address] [address] [id number] [place] [address] March, [facility] [place] [facility] [address] [id number] [place] [address]233 March, [facility] [place] [facility] [address] [id number] [place] [address] 3031 March, [facility] [place] [facility] [address] [id number] [place] [address] 0[address] March, [facility] [place] [facility] [address] [id number] [place] [address] 1265 March, [facility] [place] [facility] [address] [id number] [place] [address] 3451 March, [facility] [place] [facility] [address] [id number] [place] [address] 0785 March, [facility] [place] [facility] [address] [id number] [place] [address] 2177 March, [facility] [place] [facility] [address] [id number] [place] [address] 45[address] March, [facility] [place] [facility] [address] [id number] [place] [address] 7870 March, [facility] [place] [facility] [address] [id number] [place] [address] 1447 March, [facility] [place] [facility] [address] [id number] [place] [address] 6908 Feb, [facility] [place] [facility] [address] [id number] [place] [address]- 6230 Feb, [facility] [place] [facility] [address] [id number] [place] [address]- 7181 Feb, [facility] [place] [facility] [address] [id number] [place] [address]- 6859 Feb, [facility] [place] [facility] [address] [id number] [place] [address]- 5758 Feb, [facility] [place] [facility] [address] [id number] [place] [address]- 5559 Feb, [facility] [place] [facility] [address] [id number] [place] [address]- 5351 Feb, [facility] [place] [facility] [address] [id number] [place] [address]- 8473 Feb, [facility] [place] [facility] [address] [id number] [place] [address]- 6040 Feb, [facility] [place] [facility] [address] [id number] [place] [address]- 9192 Feb, [facility] [place] [facility] [address] [id number] [place] [address]- 2904 Feb, [facility] [place] [facility] [address] [id number] [place] [address]- 7587 Feb, [facility] [place] [facility] [address] [id number] [place] [address]- 5850 Feb, [facility] [place] [facility] [address] [id number] [place] [address]- 1745 Feb, [facility] [place] [facility] [address] [id number] [place] [address]- 5492 Feb, [facility] [place] [facility] [address] [id number] [place] [address]- 5818 Feb, [facility] [place] [facility] [address] [id number] [place] [address]- 0545 Feb, [facility] [place] [facility] [address] [id number] [place] [address]- 3002 Feb, [facility] [place] [facility] [address] [id number] [place] [address]- 4847 Feb, [facility] [place] [facility] [address] [id number] [place] [address]- 8368 Feb, [facility] [place] [facility] [address] [id number], [place] [address] 65[address] Jan, [facility] [place] [facility] [address] [id number] [place] [address]- 6419 Jan, [facility] [place] [facility] [address] [id number] [place] [address]- 6098 Jan, [facility] [place] [facility] [address] [id number] [place] [address]- 1655 Jan, [facility] [place] [facility] [address] [id number] [place] [address]- 7404 24 Jan, 2014 [facility] [place] [facility] [address] [id number] [place] [address]- 6369 24 Jan, 2014 [facility] [place] [facility] [address] [id number] [place] [address]- 4576 18 Jan, 2014 [facility] [place] [facility] [address] [id number] [place] [address]- 0867 18 Jan, 2014 [facility] [place] [facility] [address] [id number] [place] [address]- 3929 14 Jan, 2014 [facility] [place] [facility] [address] [id number] [place] [address]- 3428 14 Jan, 2014 [facility] [place] [facility] [address] [id number] [place] [address]- 5938 11 Jan, 2014 [facility] [place] [facility] [address] [id number] [place] [address]- 0403 Jan, [facility] [place] [facility] [address] [id number] [place] [address]- 9922 05 Jan, 2014 [facility] [place] [facility] [address] [id number] [place] [address]- 4033 05 Jan, 2014 [facility] [place] [facility] [address] [facility] [id number] [place] [address]- 6026 Dec, [facility] [place] [facility] [address] [id number] [place] [address]- 2548 Dec, [facility] [place] [facility] [address] [id number] [place] [address]- 7235 Dec, [facility] [place] [facility] [address] [id number] [place] [address] Dec, [facility] [place] [facility] [address] [id number] [place] [address]- 7721 20 Dec, 2013 [facility] [place] [facility] [address] [id number] [place] [address]- 3919 Dec, [facility] [place] [facility] [address] [id number] [place] [address]- 0935 Dec, [facility] [place] [facility] [address] [id number] [place] [address]- 6436 Dec, [facility] [place] [facility] [address] [id number] [place] [address]- 2099 Dec, [facility] [place] [facility] [address] [id number] [place] [address]- 6637 Nov, [facility] [place] [facility] [address] [id number] [place] [address]- 5639 Nov, [facility] [place] [facility] [address] [id number] [place] [address]- 8761 Nov, [facility] [place] [facility] [address] [id number] [place] [address]- 1837 Nov, [facility] [place] [facility] [address] [id number] [place] [address]- 2482 Oct, [facility] [place] [facility] [address] [id number] [place] [address]- 2941 Oct, [facility] [place] [facility] [address] [id number] [place] [address]- 9675 Oct, [facility] [place] [facility] [address] [id number] [place] [address]- 5154 Oct, [facility] [place] [facility] [address] [id number], [place] [address] 1372 Oct, [facility] [place] [facility] [address] [id number] [place] [address]- 9919 Oct, [facility] [place] [facility] [address] [id number] [place] [address]- 2189 Oct, [facility] [place] [facility] [address] [id number] [place] [address]- 9243 Oct, [facility] [place] [facility] [address] [id number] [place] [address]- 0671 20 Oct, 2012 [facility] [address] [id number] [place] [address]- 5417 19 Oct, 2012 [facility] [address] [id number] [place] [address]- 5566 19 Oct, 2013 [facility] [address] [id number] [place] [address] 18 Oct, 2013 [facility] [address] [id number] [place] [address]- 7324 18 Oct, 2013 [facility] [address] [id number] [place] [address]- 7643 17 Oct, 2013 [facility] [address] [id number] [place] [address]- 8694 17 Oct, 2013 [facility] [address] [id number] [place] [address]- 7909 17 Oct, 2013 [facility] [address] [id number] [place] [address]- 5794 17 Oct, 2013 [facility] [address] [id number] [place] [address]- 7396 17 Oct, 2013 [facility] [address] [id number] [place] [address]- 8679 17 Oct, 2013 [facility] [address] [id number] [place] [address]- 0965 11 Oct, 2013 [facility] [address] [id number] [place] [address]- 3072 11 Oct, 2013 [facility] [address] [id number] [place] [address]- 7042 27 Sep, 2013 [facility] [address] [id number] [place] [address]- 2837 27 Sep, 2013 [facility] [address] [id number] [place] [address]- 3411 Sep, [facility] [place] [facility] [address] [id number] [place] [address]- 4361 Sep, [facility] [place] [facility] [address] [id number] [place] [address]- 8320 18 Sep, 2013 [facility] [place] [facility] [address] [id number] [place] [address]- 1123 Sep, [facility] [place] [facility] [address] [id number] [place] [address]- 5250 14 Sep, 2013 [facility] [place] [facility] [address] [id number] [place] [address]- 8095 Sep, [facility] [place] [facility] [address] [id number] [place] [address]- 6373 Sep, [facility] [place] [facility] [address] [id number] [place] [address]- 3252 Sep, [facility] [place] [facility] [address] [id number] [place] [address]- 3129 Sep, [facility] [place] [facility] [address] [id number] [place] [address]- 6026 Sep, [facility] [place] [facility] [address] [id number], [place] [address]- 3716 Aug, [facility] [place] [facility] [address] [id number], [place] [address]- 2070 Aug, [facility] [place] [facility] [address] [id number], [place] [address]- 6009 Aug, [facility] [place] [facility] [address] [id number], [place] [address]- 6757 Aug, [facility] [place] [facility] [address] [id number], [place] [address]- 2403 Aug, [facility] [place] [facility] [address] [id number], [place] [address]- 9135 Aug, [facility] [place] [facility] [address] [id number], [place] [address]- 4055 Aug, 2012 [facility] [place] [facility] [address] [id number] [place] [address]- 9850 Aug, 2012 [facility] [place] [facility] [address] [id number] [place] [address]- 3364 Aug, 2012 [facility] [place] [facility] [address] [id number] [place]400 16 Aug, 2012 [facility] [place] [facility] [address] [id number] [place] [address]- 4404 Aug, 2012 [facility] [place] [facility] [address] [id number] [place] [address]- 7537 10 Aug, 2012 [facility] [place] [facility] [address] [id number] [place] [address]- 8789 08 Aug, 2013 [facility] [place] [facility] [address] [id number] [place] [address]- 9325 Aug, [facility] [place] [facility] [address] [id number] [place] [address]- 3378 Aug, [facility] [place] [facility] [address] [id number] [place] [address]- 0866 Aug, [facility] [place] [facility] [address] [id number] [place] [address]- 6143 Aug, [facility] [place] [facility] [address] [id number] [place] [address]- 6971 Jul, [facility] [place] [facility] [address] [id number] [place] [address]- 4415 Jun, [facility] [place] [facility] [address] [id number] [place] [address]- 4405 Jun, [facility] [place] [facility] [address] [id number] [place] [address]- 8031 May, [facility] [place] [facility] [address] [id number] [place] [address]- 0959 May, [facility] [place] [facility] [address] [id number] [place] [address]- 4518 26 Apr, 2013 [facility] [address] [id number] [place] [address]- 2188 Apr, [facility] [place] [facility] [address] [id number] [place] [address]- 6275 Apr, [facility] [place] [facility] [address] [id number] [place] [address]- 3300 Apr, [facility] [place] [facility] [address] [id number] [place] [address]- 4698 18 Apr, 2013 [facility] [place] [facility] [address] [id number] [place] [address]- 5055 10 Apr, 2013 [facility] [place] [facility] [address] [id number] [place] [address]- 1581 07 Apr, 2013 [facility] [place] [facility] [address] [id number] [place] [address]- 2379 07 Apr, 2013 [facility] [address] [id number] [place] [address]- 5583 06 Apr, 2013 [facility] [place] [facility] [address] [id number] [place] [address]- 7426 Apr, [facility] [place] [facility] [address] [id number] [place] [address]- 3678 Apr, [facility] [place] [facility] [address] [id number] [place] [address]- 4141 March, [facility] [place] [facility] [address] [id number] [place] [address]- 3405 March, [facility] [place] [facility] [address] [id number] [place] [address]- 2425 March, [facility] [place] [facility] [address] [id number] [place] [address]- 5773 March, [facility] [place] [facility] [address] [id number] [place] [address]- 8474 March, [facility] [address] [id number] [place] [address]- 3648 Feb, [facility] [place] [facility] [address] [id number] [place] [address]- 8616 Feb, [facility] [address] [id number] [place] [address]- 0647 Jan, [facility] [place] [facility] [address] [id number] [place] [address]- 5033 Jan, [facility] [address] [id number] [place] [address]- 0917 Jan, [facility] [address] [id number] [place] [address]- 4625 Jan, [facility] [address] [id number] [place] [address]- 8782 Jan, [facility] [address] [id number] [place] [address]- 2576 Dec, [facility] [address] [id number] [place] [address]- 4530 Dec, [facility] [address] [id number] [place] [address]- 2783 Nov, [facility] [place] [facility] [address] [id number], [place] [address]- 7309 Nov, [facility] [place] [facility] [address] [id number], [place] [address]- 1728 18 Nov, 2012 [facility] [place] [facility] [address] [id number] [place] [address]- 4572 16 Nov, 2012 [facility] [place] [facility] [address] [id number], [place] [address]- 9186 15 Nov, 2012 [facility] [place] [facility] [address] [id number] [place] [address]- 9372 14 Nov, 2012 [facility] [place] [facility] [address] [id number] [place] [address]- 6214 14 Nov, 2012 [facility] [address] [id number] [place] [address]- 8861 Nov, [facility] [place] [facility] [address] [id number] [place] [address]- 5446 Nov, [facility] [address] [id number] [place] [address]- 6406 Nov, [facility] [place] [facility] [address] [id number] [place] [address]- 5346 Nov, [facility] [place] [facility] [address] [id number] [place] [address]- 1080 Oct, [facility] [place] [facility] [address] [id number] [place] [address]- 7043 Oct, [facility] [address] [id number] [place] [address]- 2940 Sep, [facility] [place] [facility] [address] [id number] [place] [address]- 2493 Sep, [facility] [place] [facility] [address] [id number] [place] [address]- 6407 Sep, [facility] [place] [facility] [address] [facility] [id number] [place] [address]- 3048 Sep, [facility] [place] [facility] [address] [id number] [place] [address]- 7407 Sep, [facility] [place] [facility] [address] [id number] [place] [address]- 2696 Sep, [facility] [place] [facility] [address] [id number] [place] [address]- 9330 Sep, [facility] [place] [facility] [address] [id number] [place] [address]- 4007 Sep, [facility] [place] [facility] [address] [id number] [place] [address]- 3473 Sep, [facility] [place] [facility] [address] [id number] [place] [address]- 2303 Sep, [facility] [place] [facility] [address] [id number] [place] [address]- 5253 Sep, [facility] [place] [facility] [address] [id number] [place] [address]- 9895 Sep, [facility] [place] [facility] [address] [id number] [place] [address], [place] [address]- 3682 Sep, [facility] [place] [facility] [address] [id number] [place] [address]- 7839 Sep, [facility] [place] [facility] [address] [id number] [place] [address]- 1942 Aug, [facility] [place] [facility] [address] [id number] [place] [address]- 0098 Aug, [facility] [place] [facility] [address] [id number] [place] [address]- 2885 Aug, [facility] [place] [facility] [address] [id number] [place] [address]- 2674 Aug, [facility] [place] [facility] [address] [id number] [place] [address]- 6407 Aug, [facility] [place] [facility] [address] [id number] [place] [address]- 0699 Aug, [facility] [place] [facility] [address] [id number], [place] [address]- 8504 Aug, [facility] [place] [facility] [address] [id number] [place] [address]- 8580 Aug, [facility] [place] [facility] [address] [id number] [place] [address]- 2520 Aug, [facility] [place] [facility] [address] [id number] [place] [address]- 2657 Aug, [facility] [place] [facility] [address] [id number], [place] [address]- 7798 Aug, [facility] [id number], [place] [address]- 4911 Aug, [facility] [id number], [place] [address]- 4890 Aug, [facility] [id number], [place] [address]- 6627 Aug, [facility] [id number], [place] [address]- 4412 Aug, [facility] [id number], [place] [address]- 2132 Aug, [facility] [id number] [place] [address]- 2575 Aug, [facility] [id number], [place] [address]- 5548 Jul, [facility] [id number], [place] [address]- 6568 Jun, [facility] [id number], [place] [address]- 6200 Aug, [facility] [id number], [place] [address]- 7459 Aug, [facility] [address] [id number], [place] [address]- 7589 Aug, IMMUNIZATIONS No Known Immunizations SOCIAL HISTORY [...] surgery 08/16/2016 Hospitalization History Chest pain, CAD, HTN-[facility] 05/14/17 Hospitalization History chest pain, edema-[facility] 05/04/18
--- OUTSIDE RECORDS SUMMARY | 2018-09-08 15:14 | XMS REPORT ---
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 Active 44547423 Problem Urge incontinence of urine N39.41 Active 22945839 Problem Dependence on supplemental oxygen Z99.81 Active 538897669867 Problem Other chronic pain G89.29 Active 92717132 Problem Restless legs syndrome G25.81 Active 793226222 Problem Chronic systolic heart failure I50.22 Active 988688815 Problem Chronic pain syndrome G89.4 Active 574683799 Problem Gastroesophageal reflux disease without esophagitis K21.9 Active 439609912 Problem Morbid obesity E66.01 Active 392539421 Problem Morbid (severe) obesity due to excess calories E66.01 Active 684718135 Problem Lumbar pain M54.5 Active 277896540 Problem Chronic stasis dermatitis I83.10 Active 69048209 Problem Essential hypertension I10 Active 36012959 Problem Acquired hypothyroidism E03.9 Active 988552971 Problem Nocturnal hypoxia G47.34 Active 326405782 Problem Mixed hyperlipidemia E78.2 Active 102130063 Problem Renal insufficiency N28.9 Active 268014131 Problem Edema of both legs R60.0 Active 729423139 Problem Lymphedema I89.0 Active 050540036 Problem Stasis dermatitis without varicosities I87.2 Active 21023470 ALLERGIES No Information ENCOUNTERS Encounter Location Date Diagnosis [facility] [id number] [address] Jun, [facility] [id number] [address] 368[address] May, [facility] [id number] [address] 6966 May, [facility] [id number] [place] [address] 91085- 9408 19 Apr, 2018 Essential hypertension I10 ; Chronic systolic heart failure I50.22 ; Pain in right knee M25.561 ; Pain in left knee M25.562 ; Other chronic pain G89.29 ; Mixed hyperlipidemia E78.2 ; Morbid obesity E66.01 and Body mass index (BMI) 70 or greater, adult Z68.45 [facility] [id number] [place] [address] 17037- 4307 18 Apr, 2018 [facility] [id number] [place] [address] 56098- 0528 Apr, Acquired hypothyroidism E03.9 [facility] [id number] [place] [address] 82266- 7007 Apr, Acquired hypothyroidism E03.9 [facility] [id number] [place] [address] 82940- 1367 Apr, [facility] [id number] [place] [address] 73014- 1162 Apr, [facility] [id number] [place] [address] 70333- 6095 Apr, Acquired hypothyroidism E03.9 ; Morbid (severe) obesity due to excess calories E66.01 ; Body mass index (BMI) 70 or greater, adult Z68.45 ; Restless legs syndrome G25.81 ; Essential hypertension I10 and Lymphedema I89.0 [facility] [id number] [place] [address] 45118- 9594 Feb, [facility] [id number] [place] [address] 13625- 0726 Jan, [facility] [id number] [place] [address] 07920- 5080 Jan, [facility] [id number] [place] [address] 05485- 8139 Jan, Acquired hypothyroidism E03.9 ; Morbid (severe) obesity due to excess calories E66.01 ; Body mass index (BMI) 70 or greater, adult Z68.45 ; Cellulitis of left anterior lower leg L03.116 ; Restless legs syndrome G25.81 ; Nocturnal hypoxia G47.34 and Dependence on supplemental oxygen Z99.81 [facility] [id number] [place] [address] 53727- 1544 Jan, [facility] [id number] [place] [address] 73258- 3384 Dec, [facility] [address] 93077- 1203 Oct, [facility] [address] 20981- 7182 Oct, [facility] [address] 19899- 0498 Sep, [facility] [id number] [place] [address] 21267- 4883 Sep, [facility] [address] 87888- 6078 Sep, Dental examination Z01.20 [facility] [id number] [place] [address] 93881- 7965 Sep, Morbid obesity due to excess calories E66.01 ; Body mass index (BMI) of 70 or greater in adult Z68.45 ; Stasis dermatitis without varicosities I87.2 ; Lymphedema I89.0 ; Renal insufficiency N28.9 ; Acquired hypothyroidism E03.9 ; Cellulitis L03.90 ; Bronchitis J40 and BMI 40.0-44.9, adult Z68.41 [facility] [id number] [place] [address] 98016- 6974 Aug, [facility] [id number] [place] [address] [id number] Aug, Dental examination Z01.20 [facility] [id number] [place] [address] 17852- 1540 Aug, [facility] [id number] [place] [address] 14036- 7132 Jul, [facility] [id number] [place] [address] 12966- 9170 Jul, [facility] [address] 78922- 1637 18 Jul, 2017 [facility] [id number] [place] [address] 14705- 2552 Jul, [facility] [id number] [place] [address] 84317- 6248 Jul, [facility] [id number] [place] [address] 85323- 4392 Jun, [facility] [id number] [place] [address] 78149- 1335 Jun, Dependence on nocturnal oxygen therapy Z99.81 ; Morbid obesity due to excess calories E66.01 and Bronchitis J40 [facility] [id number] [place] [address] 93251- 9152 Jun, Restless legs syndrome G25.81 [facility] [id number] [place] [address] 29699- 0085 Jun, [facility] [id number] [place] [address] 55493- 0418 May, [facility] [id number] [place] [address] [id number] Apr, [facility] [id number] [place] [address] 23698- 4791 Apr, [facility] [id number] [place] [address] 56234- 0214 Apr, Essential hypertension I10 [facility] [id number] [place] [address] 69557- 6675 Apr, [address] [place] [id number] [place] [address] 95683- 9705 Apr, Chronic pain syndrome G89.4 and Urge incontinence of urine N39.41 [place] [id number] [place] [address] 77181- 8942 March, Acquired hypothyroidism E03.9 [facility] [id number] [place] [address] 82496- 0524 March, [place] [id number] [place] [address] 42449- 4621 March, [place] [id number] [place] [address] 21923- 9897 March, Chronic pain syndrome G89.4 ; Essential [...] and Screening breast examination Z12.39 [place] [id number] [place] [address] 66043- 7202 March, [place] [id number] [place] [address] 65472- 5517 Feb, [facility] [id number] [place] [address] 10820- 5411 Feb, [facility] [id number] [place] [address] 28713- 6969 Feb, Chronic pain syndrome G89.4 [facility] [address] [place] [address] 76689 -3532 Feb, Right foot pain M79.671 and Right foot sprain, initial encounter S93.601A [place] [id number] [address]- 6166 Jan, [facility] [id number] [place] [address] 94469- 9974 Jan, [facility] [id number] [place] [address] 80505- 6571 Jan, Chronic pain syndrome G89.4 [facility] [id number] [place] [address] 49494- 0956 Jan, [facility] [id number] [place] [address] 87576- 9816 Dec, [facility] [id number] [place] [address] 37672- 5092 Dec, [facility] [id number] [place] [address] 12362- 3816 Dec, Pain in right knee M25.561 ; Pain in left knee M25.562 ; Essential hypertension I10 ; Chronic stasis dermatitis I83.10 ; Restless legs syndrome G25.81 ; Acquired hypothyroidism E03.9 ; Dependence on nocturnal oxygen therapy Z99.81 ; Mixed hyperlipidemia E78.2 ; Lymphedema I89.0 ; Chronic pain syndrome G89.4 ; Gastroesophageal reflux disease without esophagitis K21.9 and Urge incontinence of urine N39.41 [facility] [address] [address]- 3003 Nov, Mixed hyperlipidemia E78.2 [facility] [id number] [place] [address] 18209- 5792 Nov, [facility] [address] [address]- 2033 Nov, [facility] [id number] [place] [address] 19364- 6498 Nov, [facility] [address] [address]4726 Nov, Stasis ulcer, left I83.029 [facility] [address] [address]- 2251 Nov, [facility] [address], [place] [address]- 2573 Oct, [facility] [address], [place] [address]- 3803 Oct, [facility] [address] [address]- 9864 Oct, [facility] [address] [address]- 4287 Sep, [facility] [address] [address]- 3688 Sep, [id number] [id number] Sep, [facility] [address], [place] [address]- 4313 Aug, [facility] [address] [address]- 3348 Jul, [facility] [address] [address]- 2593 Jul, [facility] [id number] [address]- 3751 Jul, [facility] [address] [address]- 4573 Jul, [facility] [id number] [address]- 4734 Jul, Chest pain, unspecified type R07.9 ; Dyspnea on exertion R06.09 ; Essential hypertension I10 ; Hyperlipidemia, unspecified hyperlipidemia type E78.5 ; Left bundle branch block I44.7 and Hypothyroidism, unspecified type E03.9 [facility] [id number] [address] Jun, Fever, unspecified fever cause R50.9 ; Headache, unspecified headache type R51 ; SOB (shortness of breath) R06.02 and Strep pharyngitis J02.0 [address] [place] [address] 57717- 5194 Jun, [place] [address] 36392- 8817 Jun, [place] [address] 86499- 9492 Jun, Essential hypertension I10 ; Mixed hyperlipidemia E78.2 and Acquired hypothyroidism E03.9 [place] [address] 50670- 4836 Jun, Edema of both legs R60.0 ; Hypoxia R09.02 and Essential hypertension I10 [address] [place] [address] 39954- 9984 Jun, [place] [address] 73717- 6266 Jun, Edema of both legs R60.0 ; Hypoxia R09.02 and Essential hypertension I10 [address] [place] [address] 64330- 2772 Jun, Essential hypertension I10 ; Dependence on supplemental oxygen Z99.81 and Edema of both legs R60.0 [address] [place] [address] 11954- 6056 May, Lumbar pain M54.5 ; Essential hypertension I10 ; Edema of both legs R60.0 ; Stasis dermatitis without varicosities I87.2 and Left knee pain M25.562 [address] [place] [address] 06246- 4939 May, [place] [address] 91476- 5027 May, [place] [address] 96597- 7750 May, [facility] [address] [place] [address] 58635- 5475 Apr, [facility] [id number] [place] [address] 76453- 0358 Apr, [facility] [id number] [place] [address] 76279- 5591 March, [facility] [id number] [place] [address] 20161- 3386 March, Lymphedema I89.0 ; Morbid obesity due to excess calories E66.01 ; Alteration in mobility due to weakness R53.1 and Hypoxia R09.02 [address] [place] [id number] [place] [address] 34569- 6856 March, Abdominal wall mass R19.00 [place] [id number] [place] [address] 67659- 5738 March, [place] [id number] [place] [address] 63629- 4855 March, Abdominal wall mass R19.00 ; Lower abdominal pain R10.30 ; Alteration in mobility due to weakness R53.1 ; Hypoxia R09.02 and Lymphedema I89.0 [place] [id number] [place] [address] 74042- 5177 Feb, [place] [id number] [place] [address] 99538- 4788 Feb, Acquired hypothyroidism E03.9 ; Dependence on machine for supplemental oxygen V46.2 ; Restless legs syndrome G25.81 ; Essential hypertension I10 ; Renal insufficiency N28.9 ; Chronic stasis dermatitis I83.10 ; Mixed hyperlipidemia E78.2 ; Other chronic pain 338.29 and Cellulitis of left lower extremity L03.116 [place] [id number] [place] [address] 15166- 8445 Feb, [facility] [id number] [place] [address] 72816- 8867 Feb, [facility] [id number] [place] [address] 18092 -7646 Feb, Shortness of breath R06.02 and Bronchitis J40 [facility] [id number] [place] [address] 75537- 4990 Jan, Dependence on supplemental oxygen Z99.81 [address] [place] [address] 76356- 8052 Jan, [place] [address] 97478- 0689 Dec, [place] [address] 61799- 8900 Dec, [place] [address] 12279- 4623 Nov, Osteoarthritis of knees, bilateral M17.0 [place] [address] 81677- 3675 Nov, Dependence on machine for supplemental oxygen V46.2 ; Nocturnal hypoxia G47.34 and Urgency of urination R39.15 [place] [id number] [place] [address] 90556- 0006 Nov, [place] [id number] [place] [address] 49128- 4589 Oct, Pain in right knee M25.561 and Pain in left knee M25.562 [address] [place] [id number] [place] [address] 43356- 1240 Oct, Acquired hypothyroidism E03.9 ; Renal insufficiency N28.9 and Chronic stasis dermatitis I83.10 [place] [id number] [place] [address] 42358- 9444 Oct, [place] [id number] [place] [address] 49738- 1615 Sep, Cellulitis L03.90 ; Left knee pain M25.562 ; Essential hypertension I10 ; Lymphedema I89.0 ; Lumbar pain M54.5 ; Morbid obesity due to excess calories E66.01 and Renal insufficiency N28.9 [address] [place] [address] 10013- 8835 Sep, Cellulitis L03.90 and Lymphedema I89.0 [place] [address] 55440- 6869 Sep, [place] [address] 27509- 0474 Sep, [place] [address] 80249- 9640 Sep, Left knee pain M25.562 ; Lumbar pain M54.5 ; Restless legs syndrome G25.81 ; Acquired hypothyroidism E03.9 and Essential hypertension I10 [address] [place] [address] 78661- 0165 Jul, [place] [address] 43106- 8366 Jun, [place] [address] 00537- 1269 May, [place] [id number] [place] [address] 15422- 2112 May, [place] [address] 34983- 6917 May, Hypertension 997.91 ; Restless legs syndrome [RLS] 333.94 ; Unspecified venous (peripheral) insufficiency 459.81 ; Unspecified hypothyroidism 244.9 and Other chronic pain 338.29 [place] [address] 35032- 8071 Apr, [place] [address] 25101- 6115 Apr, [address] [place] [address] [place] [address]- 7849 Apr, Restless legs syndrome [RLS] 333.94 ; Shortness of breath 786.05 ; Unspecified venous (peripheral) insufficiency 459.81 ; Unspecified hypothyroidism 244.9 ; Obesity, unspecified 278.00 ; Other chronic pain 338.29 ; Hypertension 997.91 and Hyperlipidemia 272.4 [facility] [address] [address]- 3794 Feb, [facility] [id number] [place] [address] 528092- 6320 Feb, [facility] [id number] [place] [address] 57144- 1961 Jan, [facility] [id number] [place] [address] 35661682- 8157 Jan, [facility] [id number] [place] [address] 12898- 5203 Jan, [facility] [id number] [address]- 3375 Jan, [facility] [id number] [address]- 4965 Jan, [facility] [address], [place] [address]- 1050 Jan, [facility] [address] [address]- 6523 Jan, [facility] [address] [address]- 4912 Jan, [facility] [id number] 3362 Jan, [facility] [address] 0206 Jan, [facility] [address] 4348 Jan, [facility] [place] [facility] [address] [id number] [place] [address]- 6822 11 Jan, 2015 [facility] [place] [facility] [address] [id number] [place] [address]- 4128 Jan, [facility] [place] [facility] [address] [id number] [place] [address]- 7225 Jan, [facility] [place] [facility] [address] [id number] [place] [address]- 8386 Dec, [facility] [place] [facility] [address] [id number] [place] [address]- 5898 Dec, [facility] [place] [facility] [address] [id number] [place] [address]- 3694 Nov, [facility] [place] [facility] [address] [id number] [place] [address]- 0057 Nov, [facility] [place] [facility] [address] [id number] [place] [address]- 6755 Nov, [facility] [place] [facility] [address] [id number] [place] [address]- 9748 Nov, [facility] [place] [facility] [address] [id number] [place] [address]- 7672 Nov, [facility] [place] [facility] [address] [id number] [place] [address]- 5144 Nov, [facility] [place] [facility] [address] [id number] [place] [address]- 3613 Nov, [facility] [place] [facility] [address] [id number] [place] [address]- 2137 Nov, [facility] [place] [facility] [address] [id number] [place] [address]- 6116 Nov, [facility] [place] [facility] [address] [id number] [place] [address]- 9783 14 Nov, 2014 [facility] [place] [facility] [address] [id number] [address]- 3015 Nov, [facility] [place] [facility] [address] [id number] [place] [address]- 4584 Nov, [facility] [place] [facility] [address] [id number] [place] 1682 Nov, [facility] [place] [facility] [address] [id number] [place] [address]- 8214 Nov, [facility] [place] [facility] [address] [id number] [place] [address]- 3083 Nov, [facility] [place] [facility] [address] [id number] [place] [address]- 5392 Nov, [facility] [place] [facility] [address] [id number] [place] [address]- 5864 Oct, [facility] [place] [facility] [address] [id number] [place] [address]- 5893 Oct, [facility] [place] [facility] [address] [id number] [place] [address]- 2747 Sep, [facility] [place] [facility] [address] [id number] [place] [address]- 5078 Aug, [facility] [place] [facility] [address] [id number] [place] [address]- 2888 Aug, [facility] [place] [facility] [address] [id number] [address]- 5093 Aug, [facility] [place] [facility] [address] [id number], [place] [address]- 0166 Aug, [facility] [place] [facility] [address] [id number] [place] [address]- 4872 Aug, [facility] [place] [facility] [address] [id number] [place] [address]- 4498 Aug, [facility] [place] [facility] [address] [id number] [place] [address]- 3198 Aug, [facility] [place] [facility] [address] [id number] [place] [address]- 0832 Aug, [facility] [place] [facility] [address] [id number] [place] [address]- 5491 Aug, [facility] [place] [facility] [address] [id number] [place] [address]- 3048 Aug, [facility] [place] [facility] [address] [id number] [place] [address]- 1403 Jun, [facility] [place] [facility] [address] [id number] [place] [address]- 4406 Jun, [facility] [place] [facility] [address] [id number] [place] [address]- 7505 Jun, [facility] [place] [facility] [address] [id number] [place] [address]- 4382 Jun, [facility] [place] [facility] [address] [id number] [place] [address]- 3512 Jun, [facility] [place] [facility] [address] [id number] [place] [address]- 6546 Jun, [facility] [place] [facility] [address] [id number] [place] [address]- 1698 Jun, [facility] [place] [facility] [address] [id number] [place] [address]- 7793 Jun, [facility] [place] [facility] [address] [id number] [place] [address] Jun, [facility] [place] [facility] [address] [id number] [place] [address] Jun, [facility] [place] [facility] [address] [id number] [place] [address] May, [facility] [place] [facility] [address] [id number] [place] [address] May, [facility] [place] [facility] [address] [id number] [place] [address] May, [facility] [place] [facility] [address] [id number] [place] [address] May, 2013 [facility] [place] [facility] [address] [id number] [place] [address] May, 2013 [facility] [place] [facility] [address] [id number] [place] [address] May, 2013 [facility] [place] [facility] [address] [id number] [place] [address] May, 2013 [facility] [place] [facility] [address] [id number] [place] [address] May, 2013 [facility] [place] [facility] [address] [id number] [place] [address] May, 2013 [facility] [place] [facility] [address] [id number] [place] [address] May, 2013 [facility] [place] [facility] [address] [id number] [place] [address] May, 2013 [facility] [place] [facility] [address] [id number] [place] [address] May, 2013 [facility] [place] [facility] [address] [id number] [place] [address] May, [facility] [place] [facility] [address] [id number] [place] [address] May, 2013 [facility] [place] [facility] [address] [id number] [place] [address] May, [facility] [place] [facility] [address] [id number] [place] [address] May, 2013 [facility] [place] [facility] [address] [id number] [place] [address] May, [facility] [place] [facility] [address] [id number] [place] [address] May, 2013 [facility] [place] [facility] [address] [id number] [place] [address] Apr, [facility] [place] [facility] [address] [id number] [place] [address] Apr, [facility] [place] [facility] [address] [id number] [place] [address] Apr, [facility] [place] [facility] [address] [id number] [place] [address] Apr, [facility] [place] [facility] [address] [id number] [place] [address] Apr, [facility] [place] [facility] [address] [address] [id number] [place] [address] Apr, [facility] [place] [facility] [address] [id number] [place] [address] Apr, [facility] [place] [facility] [address] [id number] [place] [address] 4374 Apr, [facility] [place] [facility] [address] [id number] [place] [address] 450[address] Apr, [facility] [place] [facility] [address] [id number] [place] [address] 7041 Apr, [facility] [place] [facility] [address] [id number] [place] [address] 9117 Apr, [facility] [place] [facility] [address] [id number] [place] [address] 1405 Apr, [facility] [place] [facility] [address] [id number] [place] [address] 6724 March, [facility] [place] [facility] [address] [id number] [place] [address] 2797 March, [facility] [place] [facility] [address] [id number] [place] [address] 0127 March, [facility] [place] [facility] [address] [id number] [place] [address] 4770 March, [facility] [place] [facility] [address] [id number] [place] [address] 1661 March, [facility] [place] [facility] [address] [id number] [place] [address]- 2864 March, [facility] [place] [facility] [address] [id number] [place] [address]- 0751 March, [facility] [place] [facility] [address] [id number] [place] [address]- 4615 March, [facility] [place] [facility] [address] [id number] [place] [address]- 6594 March, [facility] [place] [facility] [address] [id number] [place] [address]- 1390 March, [facility] [place] [facility] [address] [id number] [place] [address] 7297 March, [facility] [place] [facility] [address] [id number] [place] [address]- 2689 Feb, [facility] [place] [facility] [address] [id number] [place] [address]- 1118 Feb, [facility] [place] [facility] [address] [id number] [place] [address]- 9362 Feb, [facility] [place] [facility] [address] [id number] [place] [address]- 7990 Feb, [facility] [place] [facility] [address] [id number] [place] [address]- 3174 Feb, [facility] [place] [facility] [address] [id number] [place] [address]- 2899 Feb, [facility] [place] [facility] [address] [id number] [place] [address]- 3807 Feb, [facility] [place] [facility] [address] [id number] [place] [address]- 2073 Feb, [facility] [place] [facility] [address] [id number] [place] [address]- 4988 Feb, [facility] [place] [facility] [address] [id number] [place] [address]- 1860 Feb, [facility] [place] [facility] [address] [id number] [place] [address]- 9588 Feb, [facility] [place] [facility] [address] [id number] [place] [address]- 8953 Feb, [facility] [place] [facility] [address] [id number] [place] [address]- 1525 Feb, [facility] [place] [facility] [address] [id number] [place] [address]- 8676 Feb, [facility] [place] [facility] [address] [id number] [place] [address]- 5808 Feb, [facility] [place] [facility] [address] [id number] [place] [address]- 6938 Feb, [facility] [place] [facility] [address] [id number] [place] [address]- 1694 Feb, [facility] [place] [facility] [address] [id number] [place] [address]- 4375 Feb, [facility] [place] [facility] [address] [id number] [place] [address]- 0141 Feb, [facility] [place] [facility] [address] [id number] [place] [address]- 7214 Feb, [facility] [place] [facility] [address] [id number] [address]- 5873 Jan, [facility] [place] [facility] [address] [id number] [place] [address]- 6672 Jan, [facility] [place] [facility] [address] [id number] [place] [address]- 1703 Jan, [facility] [place] [facility] [address] [id number] [place] [address]- 7989 Jan, [facility] [place] [facility] [address] [id number] [place] [address]- 5493 24 Jan, 2014 [facility] [place] [facility] [address] [id number] [place] [address]- 9404 24 Jan, 2014 [facility] [place] [facility] [address] [id number] [place] [address]- 9496 18 Jan, 2014 [facility] [place] [facility] [address] [id number] [place] [address]- 4926 18 Jan, 2014 [facility] [place] [facility] [address] [id number] [place] [address]- 9784 14 Jan, 2014 [facility] [place] [facility] [address] [id number] [place] [address]- 5699 14 Jan, 2014 [facility] [place] [facility] [address] [id number] [place] [address]- 0485 11 Jan, 2014 [facility] [place] [facility] [address] [id number] [place] [address]- 1215 Jan, [facility] [place] [facility] [address] [id number] [place] [address]- 5574 05 Jan, 2014 [facility] [place] [facility] [address] [id number] [place] [address]- 0559 05 Jan, 2014 [facility] [place] [facility] [address] [facility] [id number] [place] [address]- 2838 Dec, [facility] [place] [facility] [address] [id number] [place] [address]- 8969 Dec, [facility] [place] [facility] [address] [id number] [place] [address]- 6771 Dec, [facility] [place] [facility] [address] [id number] [place] [address] Dec, [facility] [place] [facility] [address] [id number] [place] [address]- 8918 20 Dec, 2013 [facility] [place] [facility] [address] [id number] [place] [address]- 8833 Dec, [facility] [place] [facility] [address] [id number] [place] [address]- 7048 Dec, [facility] [place] [facility] [address] [id number] [place] [address]- 1227 Dec, [facility] [place] [facility] [address] [id number] [place] [address]- 1842 Dec, [facility] [place] [facility] [address] [id number] [place] [address]- 8460 Nov, [facility] [place] [facility] [address] [id number] [place] [address]- 9358 Nov, [facility] [place] [facility] [address] [id number] [place] [address]- 0864 Nov, [facility] [place] [facility] [address] [id number] [place] [address]- 5511 Nov, [facility] [place] [facility] [address] [id number] [place] [address]- 5960 Oct, [facility] [place] [facility] [address] [id number] [place] [address]- 4914 Oct, [facility] [place] [facility] [address] [id number] [place] [address]- 4132 Oct, [facility] [place] [facility] [address] [id number] [place] [address]- 9245 Oct, [facility] [place] [facility] [address] [id number] [address]- 3483 Oct, [facility] [place] [facility] [address] [id number] [place] [address]- 7927 Oct, [facility] [place] [facility] [address] [id number] [place] [address]- 6735 Oct, [facility] [place] [facility] [address] [id number] [place] [address]- 4134 Oct, [facility] [place] [facility] [address] [id number] [place] [address]- 9920 20 Oct, 2012 [facility] [address] [id number] [place] [address]- 6043 19 Oct, 2012 [facility] [address] [id number] [place] [address]- 9962 19 Oct, 2013 [facility] [address] [id number] [place] [address]169 18 Oct, 2013 [facility] [address] [id number] [place] [address]- 5788 18 Oct, 2013 [facility] [address] [id number] [place] [address]- 7183 17 Oct, 2013 [facility] [address] [id number] [place] [address]- 1710 17 Oct, 2013 [facility] [address] [id number] [place] [address]- 8666 17 Oct, 2013 [facility] [address] [id number] [place] [address]- 7832 17 Oct, 2013 [facility] [address] [id number] [place] [address]- 4338 17 Oct, 2013 [facility] [address] [id number] [place] [address]- 0052 17 Oct, 2013 [facility] [address] [id number] [place] [address]- 7327 11 Oct, 2013 [facility] [address] [id number] [place] [address]- 4296 11 Oct, 2013 [facility] [address] [id number] [place] [address]- 4585 27 Sep, 2013 [facility] [address] [id number] [place] [address]- 6008 27 Sep, 2013 [facility] [address] [id number] [place] [address]- 2055 Sep, [facility] [place] [facility] [address] [id number] [place] [address]- 3255 Sep, [facility] [place] [facility] [address] [id number] [place] [address]- 2508 18 Sep, 2013 [facility] [place] [facility] [address] [id number] [place] [address]- 7083 Sep, [facility] [place] [facility] [address] [id number] [place] [address]- 6687 14 Sep, 2013 [facility] [place] [facility] [address] [id number] [place] [address]- 7620 Sep, [facility] [place] [facility] [address] [id number] [place] [address]- 7167 Sep, [facility] [place] [facility] [address] [id number] [place] [address]- 9789 Sep, [facility] [place] [facility] [address] [id number] [place] [address]- 6100 Sep, [facility] [place] [facility] [address] [id number] [place] [address]- 3459 Sep, [facility] [place] [facility] [address] [id number], [place] [address]- 4056 Aug, [facility] [place] [facility] [address] [id number][place] [address]- 3003 Aug, [facility] [place] [facility] [address] [id number][place] [address]- 9961 Aug, [facility] [place] [facility] [address] [id number][place] [address]- 2921 Aug, [facility] [place] [facility] [address] [id number][place] [address]- 2104 Aug, [facility] [place] [facility] [address] [id number], [place] [address]- 9580 Aug, [facility] [place] [facility] [address] [id number][place] [address]- 5475 Aug, 2012 [facility] [place] [facility] [address] [id number] [place] [address]- 9441 Aug, 2012 [facility] [place] [facility] [address] [id number] [place] [address]- 8579 Aug, 2012 [facility] [place] [facility] [address] [id number] [place]703 16 Aug, 2012 [facility] [place] [facility] [address] [id number] [place] [address]- 7382 Aug, 2012 [facility] [place] [facility] [address] [id number] [place] [address]- 5598 10 Aug, 2012 [facility] [place] [facility] [address] [id number] [place] [address]- 9231 08 Aug, 2013 [facility] [place] [facility] [address] [id number] [place] [address]- 5963 Aug, [facility] [place] [facility] [address] [id number] [place] [address]- 3511 Aug, [facility] [place] [facility] [address] [id number] [place] [address]- 9429 Aug, [facility] [place] [facility] [address] [id number] [place] [address]- 0359 Aug, [facility] [place] [facility] [address] [id number] [place] [address]- 4142 Jul, [facility] [place] [facility] [address] [id number] [place] [address]- 5955 Jun, [facility] [place] [facility] [address] [id number] [place] [address]- 1756 Jun, [facility] [place] [facility] [address] [id number] [place] [address]- 5130 May, [facility] [place] [facility] [address] [id number] [place] [address]- 0466 May, [facility] [place] [facility] [address] [id number] [place] [address]- 7501 26 Apr, 2013 [facility] [address] [id number] [place] [address]- 3460 Apr, [facility] [place] [facility] [address] [id number] [place] [address]- 8409 Apr, [facility] [place] [facility] [address] [id number] [place] [address]- 9846 Apr, [facility] [place] [facility] [address] [id number] [place] [address]- 1109 18 Apr, 2013 [facility] [place] [facility] [address] [id number] [place] [address]- 5943 10 Apr, 2013 [facility] [place] [facility] [address] [id number] [place] [address]- 9695 07 Apr, 2013 [facility] [place] [facility] [address] [id number] [place] [address]- 0611 07 Apr, 2013 [facility] [address] [id number] [place] [address]- 1655 06 Apr, 2013 [facility] [place] [facility] [address] [id number] [place] [address]- 3739 Apr, [facility] [place] [facility] [address] [id number] [place] [address]- 9248 Apr, [facility] [place] [facility] [address] [id number] [place] [address]- 9779 March, [facility] [place] [facility] [address] [id number] [place] [address]- 1920 March, [facility] [place] [facility] [address] [id number] [place] [address]- 7101 March, [facility] [place] [facility] [address] [id number] [place] [address]- 1014 March, [facility] [place] [facility] [address] [id number] [place] [address]- 8656 March, [facility] [address] [id number] [place] [address]- 9587 Feb, [facility] [place] [facility] [address] [id number] [place] [address]- 4238 Feb, [facility] [address] [id number] [place] [address]- 6518 Jan, [facility] [place] [facility] [address] [id number] [place] [address]- 5821 Jan, [facility] [address] [id number] [place] [address]- 7398 Jan, [facility] [address] [id number] [place] [address]- 4940 Jan, [facility] [address] [id number] [place] [address]- 1815 Jan, [facility] [address] [id number] [place] [address]- 0559 Dec, [facility] [address] [id number] [place] [address]- 2705 Dec, [facility] [address] [id number] [place] [address]- 0964 Nov, [facility] [place] [facility] [address] [id number], [place] [address]- 3699 Nov, [facility] [place] [facility] [address] [id number], [place] [address]- 0445 18 Nov, 2012 [facility] [place] [facility] [address] [id number] [place] [address]- 6107 16 Nov, 2012 [facility] [place] [facility] [address] [id number], [place] [address]- 3392 15 Nov, 2012 [facility] [place] [facility] [address] [id number] [place] [address]- 0998 14 Nov, 2012 [facility] [place] [facility] [address] [id number] [place] [address]- 0722 14 Nov, 2012 [facility] [address] [id number] [place] [address]- 4809 Nov, [facility] [place] [facility] [address] [id number] [place] [address]- 6154 Nov, [facility] [address] [id number] [place] [address]- 0587 Nov, [facility] [place] [facility] [address] [id number] [place] [address]- 0089 Nov, [facility] [place] [facility] [address] [id number] [place] [address]- 0711 Oct, [facility] [place] [facility] [address] [id number] [place] [address]- 8551 Oct, [facility] [address] [id number] [place] [address]- 0205 Sep, [facility] [place] [facility] [address] [id number] [place] [address]- 0698 Sep, [facility] [place] [facility] [address] [id number] [place] [address]- 4826 Sep, [facility] [place] [facility] [address] [facility] [id number] [place] [address]- 9805 Sep, [facility] [place] [facility] [address] [id number] [place] [address]- 9417 Sep, [facility] [place] [facility] [address] [id number] [place] [address]- 2676 Sep, [facility] [place] [facility] [address] [id number] [place] [address]- 6762 Sep, [facility] [place] [facility] [address] [id number] [place] [address]- 9293 Sep, [facility] [place] [facility] [address] [id number] [place] [address]- 8179 Sep, [facility] [place] [facility] [address] [id number] [place] [address]- 2063 Sep, [facility] [place] [facility] [address] [id number] [place] [address]- 3560 Sep, [facility] [place] [facility] [address] [id number] [place] [address]- 6474 Sep, [facility] [place] [facility] [address] [id number] [place] [address], [place] [address]- 5258 Sep, [facility] [place] [facility] [address] [id number] [place] [address]- 3554 Sep, [facility] [place] [facility] [address] [id number] [place] [address]- 2002 Aug, [facility] [place] [facility] [address] [id number] [place] [address]- 0145 Aug, [facility] [place] [facility] [address] [id number] [place] [address]- 7086 Aug, [facility] [place] [facility] [address] [id number] [place] [address]- 8349 Aug, [facility] [place] [facility] [address] [id number] [place] [address]- 4373 Aug, [facility] [place] [facility] [address] [id number] [place] [address]- 2881 Aug, [facility] [place] [facility] [address] [id number] [address]- 7597 Aug, [facility] [place] [facility] [address] [id number] [place] [address]- 2337 Aug, [facility] [place] [facility] [address] [id number] [place] [address]- 2973 Aug, [facility] [place] [facility] [address] [id number] [place] [address]- 4076 Aug, [facility] [place] [facility] [address] [id number], [place] [address]- 5514 Aug, [facility] [address] [address]- 9886 Aug, [facility] [address], [place] [address]- 7311 Aug, [facility] [address] [address]- 7712 Aug, [facility] [address]005[place], [place] [address]- 9321 Aug, [facility] [address], [place] [address]- 3307 Aug, [facility] [id number] [place] [address]- 3306 Aug, [facility] [address]65[place], [place] [address]- 1426 Jul, [facility] [address], [place] [address]- 7008 Jun, [facility] [address] [address] Aug, [facility] [address] [address] Aug, [facility] [id number] [address] Aug, IMMUNIZATIONS No Known Immunizations SOCIAL HISTORY [...] surgery 08/16/2016 Hospitalization History Chest pain, CAD, HTN-[facility] 05/14/17 Hospitalization History chest pain, edema-[facility] 05/04/18
--- OUTSIDE RECORDS SUMMARY | 2018-09-08 15:15 | XMS REPORT ---
Author Author PIPPA DIMAS 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 Active 49832806 Problem Urge incontinence of urine N39.41 Active 16646598 Problem Dependence on supplemental oxygen Z99.81 Active 198296918203 Problem Other chronic pain G89.29 Active 23067399 Problem Restless legs syndrome G25.81 Active 301393094 Problem Chronic systolic heart failure I50.22 Active 855985617 Problem Chronic pain syndrome G89.4 Active 419463331 Problem Gastroesophageal reflux disease without esophagitis K21.9 Active 297435425 Problem Morbid obesity E66.01 Active 870217804 Problem Morbid (severe) obesity due to excess calories E66.01 Active 948710117 Problem Lumbar pain M54.5 Active 415751035 Problem Chronic stasis dermatitis I83.10 Active 80184053 Problem Essential hypertension I10 Active 25404512 Problem Acquired hypothyroidism E03.9 Active 181492242 Problem Nocturnal hypoxia G47.34 Active 067584772 Problem Mixed hyperlipidemia E78.2 Active 701698061 Problem Renal insufficiency N28.9 Active 307428498 Problem Edema of both legs R60.0 Active 532994043 Problem Lymphedema I89.0 Active 293549768 Problem Stasis dermatitis without varicosities I87.2 Active 02221975 ALLERGIES No Information ENCOUNTERS Encounter Location Date Diagnosis [facility] [id number] [address] May, [facility] [id number] [address] 9881 May, [facility] [id number] [address] 0266 May, [facility] [id number] [place] [address] 44784- 3791 19 Apr, 2018 Essential hypertension I10 ; Chronic systolic heart failure I50.22 ; Pain in right knee M25.561 ; Pain in left knee M25.562 ; Other chronic pain G89.29 ; Mixed hyperlipidemia E78.2 ; Morbid obesity E66.01 and Body mass index (BMI) 70 or greater, adult Z68.45 [facility] [id number] [place] [address] 91403- 7795 18 Apr, 2018 [facility] [id number] [place] [address] 57608- 1285 Apr, Acquired hypothyroidism E03.9 [facility] [id number] [place] [address] 71892- 2778 Apr, Acquired hypothyroidism E03.9 [facility] [id number] [place] [address] 64683- 3655 Apr, [facility] [id number] [place] [address] 88150- 6262 Apr, [facility] [id number] [place] [address] 67028- 8214 Apr, Acquired hypothyroidism E03.9 ; Morbid (severe) obesity due to excess calories E66.01 ; Body mass index (BMI) 70 or greater, adult Z68.45 ; Restless legs syndrome G25.81 ; Essential hypertension I10 and Lymphedema I89.0 [facility] [id number] [place] [address] 53279- 8876 Feb, [facility] [id number] [place] [address] 01063- 4087 Jan, [facility] [id number] [place] [address] 21495- 4829 Jan, [facility] [id number] [place] [address] 63358- 1682 Jan, Acquired hypothyroidism E03.9 ; Morbid (severe) obesity due to excess calories E66.01 ; Body mass index (BMI) 70 or greater, adult Z68.45 ; Cellulitis of left anterior lower leg L03.116 ; Restless legs syndrome G25.81 ; Nocturnal hypoxia G47.34 and Dependence on supplemental oxygen Z99.81 [facility] [id number] [place] [address] 29906- 2428 Jan, [facility] [id number] [place] [address] 30632- 4230 Dec, [facility] [address] 42000- 6154 Oct, [facility] [address] 38510- 2393 Oct, [facility] [address] 05694- 2767 Sep, [facility] [id number] [place] [address] 60337- 1755 Sep, [facility] [address] 78501- 0700 Sep, Dental examination Z01.20 [facility] [id number] [place] [address] 33118- 1574 Sep, Morbid obesity due to excess calories E66.01 ; Body mass index (BMI) of 70 or greater in adult Z68.45 ; Stasis dermatitis without varicosities I87.2 ; Lymphedema I89.0 ; Renal insufficiency N28.9 ; Acquired hypothyroidism E03.9 ; Cellulitis L03.90 ; Bronchitis J40 and BMI 40.0-44.9, adult Z68.41 [facility] [id number] [place] [address] 41473- 7432 Aug, [facility] [id number] [place] [address] [id number] Aug, Dental examination Z01.20 [facility] [id number] [place] [address] 23913- 3718 Aug, [facility] [id number] [place] [address] 75615- 8328 Jul, [facility] [id number] [place] [address] 28731- 9295 Jul, [facility] [address] 04466- 8954 18 Jul, 2017 [facility] [id number] [place] [address] 16166- 0104 Jul, [facility] [id number] [place] [address] 66786- 2831 Jul, [facility] [id number] [place] [address] 15751- 9960 Jun, [facility] [id number] [place] [address] 73156- 6210 Jun, Dependence on nocturnal oxygen therapy Z99.81 ; Morbid obesity due to excess calories E66.01 and Bronchitis J40 [facility] [id number] [place] [address] 32338- 3305 Jun, Restless legs syndrome G25.81 [facility] [id number] [place] [address] 83329- 0729 Jun, [facility] [id number] [place] [address] 89857- 0191 May, [facility] [id number] [place] [address] [id number] Apr, [facility] [id number] [place] [address] 95122- 5605 Apr, [facility] [id number] [place] [address] 79489- 4027 Apr, Essential hypertension I10 [facility] [id number] [place] [address] 58333- 2296 Apr, [id number] [place] [address] 79869- 4520 Apr, Chronic pain syndrome G89.4 and Urge incontinence of urine N39.41 [id number] [place] [address] 85633- 5661 March, Acquired hypothyroidism E03.9 [facility] [id number] [place] [address] 28479- 0159 March, [id number] [place] [address] 15782- 8350 March, [id number] [place] [address] 69081- 0665 March, Chronic pain syndrome G89.4 ; Essential [...] extremity L03.116 and Screening breast examination Z12.39 [id number] [place] [address] 45303- 2862 March, [id number] [place] [address] 41249- 6496 Feb, [facility] [id number] [place] [address] 93958- 0233 Feb, [facility] [id number] [place] [address] 68452- 2583 Feb, Chronic pain syndrome G89.4 [facility] [id number] [place] [address] 46704 -7003 Feb, Right foot pain M79.671 and Right foot sprain, initial encounter S93.601A [id number] [address]- 6792 Jan, [facility] [id number] [place] [address] 64451- 1012 Jan, [facility] [id number] [place] [address] 17550- 8642 Jan, Chronic pain syndrome G89.4 [facility] [id number] [place] [address] 63552- 9449 Jan, [facility] [id number] [place] [address] 60728- 2464 Dec, [facility] [id number] [place] [address] 12706- 2427 Dec, [facility] [id number] [place] [address] 22188- 6002 Dec, Pain in right knee M25.561 ; Pain in left knee M25.562 ; Essential hypertension I10 ; Chronic stasis dermatitis I83.10 ; Restless legs syndrome G25.81 ; Acquired hypothyroidism E03.9 ; Dependence on nocturnal oxygen therapy Z99.81 ; Mixed hyperlipidemia E78.2 ; Lymphedema I89.0 ; Chronic pain syndrome G89.4 ; Gastroesophageal reflux disease without esophagitis K21.9 and Urge incontinence of urine N39.41 [facility] [address] [address]- 2710 Nov, Mixed hyperlipidemia E78.2 [facility] [address] [place] [address] 02399- 1237 Nov, [facility] [address] [address]- 9385 Nov, [facility] [id number] [place] [address] 03830- 2476 Nov, [facility] [address] [address]4435 Nov, Stasis ulcer, left I83.029 [facility] [address] [address]- 4303 Nov, [facility] [address] [address]- 0038 Oct, [facility] [address] [address]- 4726 Oct, [facility] [address] [address]- 3431 Oct, [facility] [address] [address]- 0468 Sep, [facility] [address] [address]- 2319 Sep, [id number] [id number] Sep, [facility] [address] [address]- 4684 Aug, [facility] [address] [address]- 3118 Jul, [facility] [address] [address]- 3527 Jul, [facility] [id number] [address]- 8762 Jul, [facility] [address] [address]- 7371 Jul, [facility] [id number] [address]- 0049 Jul, Chest pain, unspecified type R07.9 ; Dyspnea on exertion R06.09 ; Essential hypertension I10 ; Hyperlipidemia, unspecified hyperlipidemia type E78.5 ; Left bundle branch block I44.7 and Hypothyroidism, unspecified type E03.9 [facility] [id number] [address] -[address] Jun, Fever, unspecified fever cause R50.9 ; Headache, unspecified headache type R51 ; SOB (shortness of breath) R06.02 and Strep pharyngitis J02.0 [address] 66188- 7047 Jun, [address] 47846- 2104 Jun, [address] [place] 84668- 7379 Jun, Essential hypertension I10 ; Mixed hyperlipidemia E78.2 and Acquired hypothyroidism E03.9 [address] 24459- 1205 Jun, Edema of both legs R60.0 ; Hypoxia R09.02 and Essential hypertension I10 [address] 95239- 6152 Jun, [address] 86193- 8539 Jun, Edema of both legs R60.0 ; Hypoxia R09.02 and Essential hypertension I10 [address] 35230- 2183 Jun, Essential hypertension I10 ; Dependence on supplemental oxygen Z99.81 and Edema of both legs R60.0 [address] 08461- 1086 May, Lumbar pain M54.5 ; Essential hypertension I10 ; Edema of both legs R60.0 ; Stasis dermatitis without varicosities I87.2 and Left knee pain M25.562 [address] 35733- 0005 May, [address] 29993- 6774 May, [address] 70651- 5593 May, [facility] [address] [place] [address] 61159- 9356 Apr, [facility] [id number] [place] [address] 71716- 8451 Apr, [facility] [id number] [place] [address] 27962- 1696 March, [facility] [id number] [place] [address] 46625- 5533 March, Lymphedema I89.0 ; Morbid obesity due to excess calories E66.01 ; Alteration in mobility due to weakness R53.1 and Hypoxia R09.02 [id number] [place] [address] 10099- 8813 March, Abdominal wall mass R19.00 [address] [id number] [place] [address] 17190- 9770 March, [id number] [place] [address] 93321- 0264 March, Abdominal wall mass R19.00 ; Lower abdominal pain R10.30 ; Alteration in mobility due to weakness R53.1 ; Hypoxia R09.02 and Lymphedema I89.0 [address] [id number] [place] [address] 18588- 9042 Feb, [address] [id number] [place] [address] 97538- 9530 Feb, Acquired hypothyroidism E03.9 ; Dependence on machine for supplemental oxygen V46.2 ; Restless legs syndrome G25.81 ; Essential hypertension I10 ; Renal insufficiency N28.9 ; Chronic stasis dermatitis I83.10 ; Mixed hyperlipidemia E78.2 ; Other chronic pain 338.29 and Cellulitis of left lower extremity L03.116 [address] [id number] [place] [address] 12739- 5650 Feb, [facility] [id number] [place] [address] 98129- 9420 Feb, [facility] [id number] [place] [address] 79741 -8475 Feb, Shortness of breath R06.02 and Bronchitis J40 [facility] [id number] [place] [address] 96383- 1412 Jan, Dependence on supplemental oxygen Z99.81 [address] [place] 40646- 3252 Jan, [address] 02405- 9531 Dec, [address] 28465- 7915 Dec, [address] 40572- 5715 Nov, Osteoarthritis of knees, bilateral M17.0 [address] 52401- 9558 Nov, Dependence on machine for supplemental oxygen V46.2 ; Nocturnal hypoxia G47.34 and Urgency of urination R39.15 [id number] [place] [address] 05083- 9122 Nov, [address] [id number] [place] [address] 63174- 4697 Oct, Pain in right knee M25.561 and Pain in left knee M25.562 [address] [id number] [place] [address] 36456- 1739 Oct, Acquired hypothyroidism E03.9 ; Renal insufficiency N28.9 and Chronic stasis dermatitis I83.10 [address] [id number] [place] [address] 28085- 3168 Oct, [address] [id number] [place] [address] 22373- 2704 Sep, Cellulitis L03.90 ; Left knee pain M25.562 ; Essential hypertension I10 ; Lymphedema I89.0 ; Lumbar pain M54.5 ; Morbid obesity due to excess calories E66.01 and Renal insufficiency N28.9 [address] [place] 37958- 6745 Sep, Cellulitis L03.90 and Lymphedema I89.0 [address] [place] 45407- 3799 Sep, [address] [address] 21838- 5827 Sep, [address] [address] 01821- 4984 Sep, Left knee pain M25.562 ; Lumbar pain M54.5 ; Restless legs syndrome G25.81 ; Acquired hypothyroidism E03.9 and Essential hypertension I10 [address] 40264- 7961 Jul, [address] [address] 16934- 9573 Jun, [address] 00116- 5314 May, [id number] [place] [address] 72220- 3935 May, [address] 06851- 2399 May, Hypertension 997.91 ; Restless legs syndrome [RLS] 333.94 ; Unspecified venous (peripheral) insufficiency 459.81 ; Unspecified hypothyroidism 244.9 and Other chronic pain 338.29 [address] [address] 83016- 0967 Apr, [address] 64340- 3953 Apr, [address] [place] [address]- 3427 Apr, Restless legs syndrome [RLS] 333.94 ; Shortness of breath 786.05 ; Unspecified venous (peripheral) insufficiency 459.81 ; Unspecified hypothyroidism 244.9 ; Obesity, unspecified 278.00 ; Other chronic pain 338.29 ; Hypertension 997.91 and Hyperlipidemia 272.4 [facility] [address], [place] [address]- 0073 Feb, [facility] [id number] [place] [address] 618185- 9859 Feb, [facility] [id number] [place] [address] 97660- 4827 Jan, [facility] [id number] [place] [address] 27487176- 6064 Jan, [facility] [id number] [place] [address] 58006- 3154 Jan, [facility] [id number] [address]- 5874 Jan, [facility] [id number] [address]- 1278 Jan, [facility] [address] [address]- 2633 Jan, [facility] [address] [address]- 5940 Jan, [facility] [address] [address] 0978 Jan, [facility] [id number] 0742 Jan, [facility] [address] 3003 Jan, [facility] [address] 2260 Jan, [facility] [place] [facility] [address] [id number] [place] [address]- 9288 11 Jan, 2015 [facility] [place] [facility] [address] [id number] [place] [address]- 8799 Jan, [facility] [place] [facility] [address] [id number] [place] [address]- 5018 Jan, [facility] [place] [facility] [address] [id number] [place] [address]- 8306 Dec, [facility] [place] [facility] [address] [id number] [place] [address]- 9227 Dec, [facility] [place] [facility] [address] [id number] [place] [address]- 6941 Nov, [facility] [place] [facility] [address] [id number] [place] [address]- 6429 Nov, [facility] [place] [facility] [address] [id number] [place] [address]- 2457 Nov, [facility] [place] [facility] [address] [id number] [place] [address]- 7991 Nov, [facility] [place] [facility] [address] [id number] [place] [address]- 8399 Nov, [facility] [place] [facility] [address] [id number] [place] [address]- 9537 Nov, [facility] [place] [facility] [address] [id number] [place] [address]- 5407 Nov, [facility] [place] [facility] [address] [id number] [place] [address]- 2140 Nov, [facility] [place] [facility] [address] [id number] [place] [address]- 4881 Nov, [facility] [place] [facility] [address] [id number] [place] [address]- 0290 14 Nov, 2014 [facility] [place] [facility] [address] [id number] [address]- 5487 Nov, [facility] [place] [facility] [address] [id number] [place] [address]- 5398 Nov, [facility] [place] [facility] [address] [id number] [place] 8389 Nov, [facility] [place] [facility] [address] [id number] [place] [address]- 1964 Nov, [facility] [place] [facility] [address] [id number] [place] [address]- 8716 Nov, [facility] [place] [facility] [address] [id number] [place] [address]- 5697 Nov, [facility] [place] [facility] [address] [id number] [place] [address] Oct, [facility] [place] [facility] [address] [id number] [place] [address] Oct, [facility] [place] [facility] [address] [id number] [place] [address] Sep, [facility] [place] [facility] [address] [id number] [place] [address] Aug, [facility] [place] [facility] [address] [id number] [place] [address] Aug, [facility] [place] [facility] [address] [id number], [place] [address] Aug, [facility] [place] [facility] [address] [id number], [place] [address] Aug, [facility] [place] [facility] [address] [id number] [place] [address] Aug, [facility] [place] [facility] [address] [id number] [place] [address] Aug, [facility] [place] [facility] [address] [id number] [place] [address] Aug, [facility] [place] [facility] [address] [id number] [place] [address] Aug, [facility] [place] [facility] [address] [id number] [place] [address] Aug, [facility] [place] [facility] [address] [id number] [place] [address] Aug, [facility] [place] [facility] [address] [id number] [place] [address] Jun, [facility] [place] [facility] [address] [id number] [place] [address] Jun, [facility] [place] [facility] [address] [id number] [place] [address] Jun, [facility] [place] [facility] [address] [id number] [place] [address] Jun, [facility] [place] [facility] [address] [id number] [place] [address] Jun, [facility] [place] [facility] [address] [id number] [place] [address] Jun, [facility] [place] [facility] [address] [id number] [place] [address] Jun, [facility] [place] [facility] [address] [id number] [place] [address] Jun, [facility] [place] [facility] [address] [id number] [place] [address] Jun, [facility] [place] [facility] [address] [id number] [place] [address] Jun, [facility] [place] [facility] [address] [id number] [place] [address] May, [facility] [place] [facility] [address] [id number] [place] [address] May, [facility] [place] [facility] [address] [id number] [place] [address] May, [facility] [place] [facility] [address] [id number] [place] [address] May, 2013 [facility] [place] [facility] [address] [id number] [place] [address] May, 2013 [facility] [place] [facility] [address] [id number] [place] [address] May, 2013 [facility] [place] [facility] [address] [id number] [place] [address] May, 2013 [facility] [place] [facility] [address] [id number] [place] [address] May, 2013 [facility] [place] [facility] [address] [id number] [place] [address] May, 2013 [facility] [place] [facility] [address] [id number] [place] [address] May, 2013 [facility] [facility] [address] [id number] [place] [address] May, 2013 [facility] [place] [facility] [address] [id number] [place] [address] 8[address] May, 2013 [facility] [place] [facility] [address] [id number] [place] [address] 6865 May, [facility] [place] [facility] [address] [id number] [place] [address]- 2994 May, 2013 [facility] [place] [facility] [address] [id number] [place] [address]- 6366 May, [facility] [place] [facility] [address] [id number] [place] [address]- 5010 May, 2013 [facility] [place] [facility] [address] [id number] [place] [address]- 3519 May, [facility] [place] [facility] [address] [id number] [place] [address]- 1409 May, 2013 [facility] [place] [facility] [address] [id number] [place] [address]- 8755 Apr, [facility] [place] [facility] [address] [id number] [place] [address]- 5946 Apr, [facility] [place] [facility] [address] [id number] [place] [address]- 9344 Apr, [facility] [place] [facility] [address] [id number] [place] [address]- 7651 Apr, [facility] [place] [facility] [address] [id number] [place] [address]- 8641 Apr, [facility] [place] [facility] [address] [id number] [place] [address]- 4107 Apr, [facility] [place] [facility] [address] [id number] [place] [address]- 6002 Apr, [facility] [place] [facility] [address] [id number] [place] [address]- 4560 Apr, [facility] [place] [facility] [address] [id number] [place] [address]- 8632 Apr, [facility] [place] [facility] [address] [id number] [place] [address]- 4094 Apr, [facility] [place] [facility] [address] [id number] [place] [address]- 9267 Apr, [facility] [place] [facility] [address] [id number] [place] [address]- 6066 Apr, [facility] [place] [facility] [address] [id number] [place] [address]- 2805 March, [facility] [place] [facility] [address] [id number] [place] [address]- 4011 March, [facility] [place] [facility] [address] [id number] [place] [address]- 1143 March, [facility] [address] [id number] [place] [address]- 2619 March, [facility] [place] [facility] [address] [id number] [place] [address]- 8420 March, [facility] [place] [facility] [address] [id number] [place] [address]- 1982 March, [facility] [place] [facility] [address] [id number] [place] [address]- 5984 March, [facility] [place] [facility] [address] [id number] [place] [address]- 7558 March, [facility] [place] [facility] [address] [id number] [place] [address]- 3884 March, [facility] [place] [facility] [address] [id number] [place] [address]- 5470 March, [facility] [address] [id number] [place] [address]- 5734 March, [facility] [place] [facility] [address] [id number] [place] [address]- 2319 Feb, [facility] [address] [id number] [place] [address]- 7557 Feb, [facility] [place] [facility] [address] [id number] [place] [address]- 9498 Feb, [facility] [address] [id number] [place] [address]- 4893 Feb, [facility] [address] [id number] [place] [address]- 7092 Feb, [facility] [place] [address] [id number] [place] [address]- 5475 Feb, [facility] [place] [address] [id number] [place] [address]- 1872 Feb, [facility] [address] [id number] [place] [address]- 3825 Feb, [facility] [place] [address] [id number] [place] [address]- 6901 Feb, [facility] [address] [id number] [place] [address]- 8551 Feb, [facility] [address] [id number] [place] [address]- 2234 Feb, [facility] [address] [id number] [place] [address]- 1564 Feb, [facility] [address] [id number] [place] [address]- 6420 Feb, [facility] [address] [id number] [place] [address]- 5452 Feb, [facility] [address] [id number] [place] [address]- 1198 Feb, [facility] [address] [id number] [place] [address]- 0822 Feb, [facility] [address] [id number] [place] [address]- 1045 Feb, [facility] [address] [id number] [place] [address]- 5788 Feb, [facility] [address] [id number] [place] [address]- 4826 Feb, [facility] [address] [id number] [place] [address]- 8340 Feb, [facility] [address] [id number] [address]- 06[address] Jan, [facility] [address] [id number] [place] [address]- 0619 Jan, [facility] [address] [id number] [place] [address]- 4543 Jan, [facility] [address] [id number] [place] [address]- 2458 Jan, [facility] [address] [id number] [place] [address]- 6085 24 Jan, 2014 [facility] [address] [id number] [place] [address]- 3568 24 Jan, 2014 [facility] [address] [id number] [place] [address]- 5936 18 Jan, 2014 [facility] [address] [id number] [place] [address]- 6087 18 Jan, 2014 [facility] [address] [id number] [place] [address]- 1277 14 Jan, 2014 [facility] [address] [id number] [place] [address]- 8164 14 Jan, 2014 [facility] [address] [id number] [place] [address]- 5545 11 Jan, 2014 [facility] [address] [id number] [place] [address]- 9097 Jan, [facility] [address] [id number] [place] [address]- 2328 05 Jan, 2014 [facility] [address] [id number] [place] [address]- 0880 05 Jan, 2014 [facility] [address] [facility] [id number] [place] [address]- 9571 Dec, [facility] [address] [id number] [place] [address]- 2737 Dec, [facility] [address] [id number] [place] [address]- 0416 Dec, [facility] [address] [id number] [place] [address] Dec, [facility] [address] [id number] [place] [address]- 5034 20 Dec, 2013 [facility] [address] [id number] [place] [address]- 8905 Dec, [facility] [address] [id number] [place] [address]- 7734 Dec, [facility] [address] [id number] [place] [address]- 6730 Dec, [facility] [address] [id number] [place] [address]- 1357 Dec, [facility] [address] [id number] [place] [address]- 8175 Nov, [facility] [address] [id number] [place] [address]- 9698 Nov, [facility] [address] [id number] [place] [address]- 4807 Nov, [facility] [address] [id number] [place] [address]- 7665 Nov, [facility] [address] [id number] [place] [address]- 9894 Oct, [facility] [address] [id number] [place] [address]- 6166 Oct, [facility] [address] [id number] [place] [address]- 1579 Oct, [facility] [address] [id number] [place] [address]- 0300 Oct, [facility] [address] [id number], [place] [address]- 2639 Oct, [facility] [address] [id number] [place] [address]- 8659 Oct, [facility] [address] [id number] [place] [address]- 0272 Oct, [facility] [address] [id number] [place] [address]- 8149 Oct, [facility] [address] [id number] [place] [address]- 6904 20 Oct, 2012 [facility] [address] [id number] [place] [address]- 7199 19 Oct, 2012 [facility] [address] [id number] [place] [address]- 6636 19 Oct, 2013 [facility] [address] [id number] [place] 18 Oct, 2013 [facility] [address] [id number] [place] [address]- 4663 18 Oct, 2013 [facility] [address] [id number] [place] [address]- 6512 17 Oct, 2013 [facility] [address] [id number] [place] [address]- 6514 17 Oct, 2013 [facility] [address] [id number] [place] [address]- 8059 17 Oct, 2013 [facility] [address] [id number] [place] [address]- 1946 17 Oct, 2013 [facility] [address] [id number] [place] [address]- 2419 17 Oct, 2013 [facility] [address] [id number] [place] [address]- 7732 17 Oct, 2013 [facility] [address] [id number] [place] [address]- 8843 11 Oct, 2013 [facility] [address] [id number] [place] [address]- 3083 11 Oct, 2013 [facility] [address] [id number] [place] [address]- 5188 27 Sep, 2013 [facility] [address] [id number] [place] [address]- 6853 27 Sep, 2013 [facility] [address] [id number] [place] [address]- 0654 Sep, [facility] [address] [id number] [place] [address]- 2861 Sep, [facility] [address] [id number] [place] [address]- 4909 18 Sep, 2013 [facility] [address] [id number] [place] [address]- 7685 Sep, [facility] [address] [id number] [place] [address]- 1238 14 Sep, 2013 [facility] [address] [id number] [place] [address]- 5425 Sep, [facility] [address] [id number] [place] [address]- 8221 Sep, [facility] [address] [id number] [place] [address]- 1374 Sep, [facility] [address] [id number] [place] [address]- 6800 Sep, [facility] [address] [id number] [place] [address]- 6269 Sep, [facility] [address] [id number], [place] [address]- 6000 Aug, [facility] [address] [id number], [place] [address]- 3764 Aug, [facility] [address] [id number], [place] [address]- 8325 Aug, [facility] [address] [id number], [place] [address]- 3124 Aug, [facility] [address] [id number], [place] [address]- 7396 Aug, [facility] [address] [id number], [place] [address]- 9717 Aug, [facility] [address] [id number], [place] [address]- 4794 Aug, 2012 [facility] [address] [id number] [place] [address]- 8866 Aug, 2012 [facility] [address] [id number] [place] [address]- 9661 Aug, 2012 [facility] [address] [id number] [place] [address]048 16 Aug, 2012 [facility] [address] [id number] [place] [address]- 4280 Aug, 2012 [facility] [address] [id number] [place] [address]- 3281 10 Aug, 2012 [facility] [address] [id number] [place] [address]- 3026 08 Aug, 2013 [facility] [address] [id number] [place] [address]- 9821 Aug, [facility] [address] [id number] [place] [address]- 9381 Aug, [facility] [address] [id number] [place] [address]- 2353 Aug, [facility] [address] [id number] [place] [address]- 9335 Aug, [facility] [address] [id number] [place] [address]- 9055 Jul, [facility] [address] [id number] [place] [address]- 9534 Jun, [facility] [address] [id number] [place] [address]- 0042 Jun, [facility] [address] [id number] [place] [address]- 5777 May, [facility] [address] [id number] [place] [address]- 4769 May, [facility] [address] [id number] [place] [address]- 2559 26 Apr, 2013 [facility] [address] [id number] [place] [address]- 0694 Apr, [facility] [address] [id number] [place] [address]- 7218 Apr, [facility] [address] [id number] [place] [address]- 6593 Apr, [facility] [address] [id number] [place] [address]- 9412 18 Apr, 2013 [facility] [address] [id number] [place] [address]- 3735 10 Apr, 2013 [facility] [address] [id number] [place] [address]- 8661 07 Apr, 2013 [facility] [address] [id number] [place] [address]- 9989 07 Apr, 2013 [facility] [address] [id number] [place] [address]- 1037 06 Apr, 2013 [facility] [address] [id number] [place] [address]- 0721 Apr, [facility] [address] [id number] [place] [address]- 6550 Apr, [facility] [address] [id number] [place] [address]- 2077 March, [facility] [address] [id number] [place] [address]- 0738 March, [facility] [place] [facility] [address] [id number] [place] [address]- 0388 March, [facility] [address] [id number] [place] [address]- 6611 March, [facility] [facility] [address] [id number] [place] [address]- 0002 March, [facility] [address] [id number] [place] [address]- 4044 Feb, [facility] [place] [facility] [address] [id number] [place] [address]- 6638 Feb, [facility] [address] [id number] [place] [address]- 2751 Jan, [facility] [place] [facility] [address] [id number] [place] [address]- 0431 Jan, [facility] [address] [id number] [place] [address]- 2940 Jan, [facility] [address] [id number] [place] [address]- 9550 Jan, [facility] [address] [id number] [place] [address]- 5079 Jan, [facility] [address] [id number] [place] [address]- 0841 Dec, [facility] [address] [id number] [place] [address]- 2604 Dec, [facility] [address] [id number] [place] [address]- 5183 Nov, [facility] [place] [facility] [address] [id number], [place] [address]- 7030 Nov, [facility] [place] [facility] [address] [id number], [place] [address]- 4870 18 Nov, 2012 [facility] [place] [facility] [address] [id number] [place] [address]- 1663 16 Nov, 2012 [facility] [place] [facility] [address] [id number], [place] [address]- 6759 15 Nov, 2012 [facility] [place] [facility] [address] [id number] [place] [address]- 0585 14 Nov, 2012 [facility] [place] [facility] [address] [id number] [place] [address]- 0740 14 Nov, 2012 [facility] [address] [id number] [place] [address]- 3166 Nov, [facility] [place] [facility] [address] [id number] [place] [address]- 1676 Nov, [facility] [address] [id number] [place] [address]- 3171 Nov, [facility] [place] [facility] [address] [id number] [place] [address]- 2095 Nov, [facility] [place] [facility] [address] [id number] [place] [address]- 2252 Oct, [facility] [place] [facility] [address] [id number] [place] [address]- 1108 Oct, [facility] [address] [id number] [place] [address]- 6209 Sep, [facility] [place] [facility] [address] [id number] [place] [address]- 9374 Sep, [facility] [place] [facility] [address] [id number] [place] [address]- 9043 Sep, [facility] [place] [facility] [address] [facility] [id number] [place] [address]- 3422 Sep, [facility] [place] [facility] [address] [id number] [place] [address]- 3241 Sep, [facility] [place] [facility] [address] [id number] [place] [address]- 4288 Sep, [facility] [place] [facility] [address] [id number] [place] [address]- 7880 Sep, [facility] [place] [facility] [address] [id number] [place] [address]- 4137 Sep, [facility] [place] [facility] [address] [id number] [place] [address]- 8005 Sep, [facility] [place] [facility] [address] [id number] [place] [address]- 3519 Sep, [facility] [place] [facility] [address] [id number] [place] [address]- 7703 Sep, [facility] [place] [facility] [address] [id number] [place] [address]- 6452 Sep, [facility] [place] [facility] [address] [id number] [place] [address], [place] [address]- 6589 Sep, [facility] [place] [facility] [address] [id number] [place] [address]- 3337 Sep, [facility] [place] [facility] [address] [id number] [place] [address]- 0693 Aug, [facility] [place] [facility] [address] [id number] [place] [address]- 8475 Aug, [facility] [place] [facility] [address] [id number] [place] [address]- 5998 Aug, [facility] [place] [facility] [address] [id number] [place] [address]- 0110 Aug, [facility] [place] [facility] [address] [id number] [place] [address]- 5066 Aug, [facility] [place] [facility] [address] [id number] [place] [address]- 7579 Aug, [facility] [place] [facility] [address] [id number], [place] [address] Aug, [facility] [place] [facility] [address] [id number] [place] [address] Aug, [facility] [place] [facility] [address] [id number] [place] [address] Aug, [facility] [place] [facility] [address] [id number] [place] [address] Aug, [facility] [place] [facility] [address] [id number], [place] [address] Aug, [facility] [id number] [address] Aug, [facility] [id number] [address] Aug, [facility] [id number] [address] Aug, [facility] [id number] [address] Aug, [facility] [id number] [address] Aug, [facility] [id number] [place] [address] Aug, [facility] [id number] [address] Jul, [facility] [id number] [address] Jun, [facility] [id number] [address] Aug, [facility] [id number] [address] Aug, [facility] [id number] [address] Aug, IMMUNIZATIONS No Known Immunizations SOCIAL HISTORY [...] surgery 08/16/2016 Hospitalization History Chest pain, CAD, HTN[facility] 05/14/17 Hospitalization History chest pain, edema-[facility] 05/04/18
--- OUTSIDE RECORDS SUMMARY | 2018-09-08 15:16 | XMS REPORT ---
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 Active 89231345 Problem Urge incontinence of urine N39.41 Active 32689610 Problem Dependence on supplemental oxygen Z99.81 Active 309754112713 Problem Other chronic pain G89.29 Active 76204569 Problem Restless legs syndrome G25.81 Active 406073510 Problem Chronic systolic heart failure I50.22 Active 171428236 Problem Chronic pain syndrome G89.4 Active 483645147 Problem Gastroesophageal reflux disease without esophagitis K21.9 Active 573467270 Problem Morbid obesity E66.01 Active 577630499 Problem Morbid (severe) obesity due to excess calories E66.01 Active 058256677 Problem Lumbar pain M54.5 Active 216282411 Problem Chronic stasis dermatitis I83.10 Active 72355360 Problem Essential hypertension I10 Active 56313251 Problem Acquired hypothyroidism E03.9 Active 869114199 Problem Nocturnal hypoxia G47.34 Active 773605484 Problem Mixed hyperlipidemia E78.2 Active 184847222 Problem Renal insufficiency N28.9 Active 105744367 Problem Edema of both legs R60.0 Active 159440519 Problem Lymphedema I89.0 Active 853639415 Problem Stasis dermatitis without varicosities I87.2 Active 74506274 ALLERGIES Substance Reaction Event Type Date Status Bactrim DS hives Drug Allergy Jan, Active ENCOUNTERS Encounter Location Date Diagnosis [facility] [address] [facility] [id number] [address] May, [facility] [address] [facility] [id number] [address] 17[address] May, [facility] [id number] [place] [address] 96462- 8292 May, [facility] [id number] [place] [address] 60545- 7290 Apr, Essential hypertension I10 ; Chronic systolic heart failure I50.22 ; Pain in right knee M25.561 ; Pain in left knee M25.562 ; Other chronic pain G89.29 ; Mixed hyperlipidemia E78.2 ; Morbid obesity E66.01 and Body mass index (BMI) 70 or greater, adult Z68.45 [facility] [id number] [place] [address] 33711- 5449 18 Apr, 2018 [facility] [id number] [place] [address] 49389- 5214 Apr, Acquired hypothyroidism E03.9 [facility] [id number] [place] [address] 40275- 1829 08 Apr, 2018 Acquired hypothyroidism E03.9 [facility] [id number] [place] [address] 02818- 3802 08 Apr, 2018 [facility] [id number] [place] [address] 32963- 0402 Apr, [facility] [id number] [place] [address] 65276- 8156 07 Apr, 2018 Acquired hypothyroidism E03.9 ; Morbid (severe) obesity due to excess calories E66.01 ; Body mass index (BMI) 70 or greater, adult Z68.45 ; Restless legs syndrome G25.81 ; Essential hypertension I10 and Lymphedema I89.0 [facility] [id number] [place] [address] 60679- 0275 Feb, [facility] [id number] [place] [address] 14334- 0143 Jan, [facility] [id number] [place] [address] 61460- 6066 Jan, [facility] [id number] [place] [address] 52167- 4497 27 Jan, 2018 Acquired hypothyroidism E03.9 ; Morbid (severe) obesity due to excess calories E66.01 ; Body mass index (BMI) 70 or greater, adult Z68.45 ; Cellulitis of left anterior lower leg L03.116 ; Restless legs syndrome G25.81 ; Nocturnal hypoxia G47.34 and Dependence on supplemental oxygen Z99.81 [facility] [address] 99118- 7694 22 Jan, 2018 [facility] [address] 98943- 4236 12 Dec, 2017 [facility] [address] 25940- 7128 15 Oct, 2017 [facility] [address] 10529- 7815 Oct, [facility] [address] 83890- 2159 Sep, [facility] [id number] [place] [address] 58032- 5948 Sep, [facility] [id number] [place] [address] 14919- 9990 16 Sep, 2017 Dental examination Z01.20 [facility] [id number] [place] [address] 95360- 9594 Sep, Morbid obesity due to excess calories E66.01 ; Body mass index (BMI) of 70 or greater in adult Z68.45 ; Stasis dermatitis without varicosities I87.2 ; Lymphedema I89.0 ; Renal insufficiency N28.9 ; Acquired hypothyroidism E03.9 ; Cellulitis L03.90 ; Bronchitis J40 and BMI 40.0-44.9, adult Z68.41 [facility] [id number] [place] [address] 35433- 2952 Aug, [facility] [address] [id number] Aug, Dental examination Z01.20 [facility] [address] [address] 8626 Aug, [facility] [id number] [place] [address] 42499- 8703 Jul, [facility] [id number] [place] [address] 66706- 6750 19 Jul, 2017 [facility] [id number] [place] [address] 31303- 9526 18 Jul, 2017 [facility] [id number] [place] [address] 37643- 4141 14 Jul, 2017 [facility] [id number] [place] [address] 42303- 7945 Jul, [facility] [id number] [place] [address] 27564- 3741 Jun, [facility] [id number] [place] [address] 92699- 5220 Jun, Dependence on nocturnal oxygen therapy Z99.81 ; Morbid obesity due to excess calories E66.01 and Bronchitis J40 [facility] [id number] [place] [address] 05901- 8515 Jun, Restless legs syndrome G25.81 [facility] [id number] [place] [address] 38046- 7646 Jun, [facility] [id number] [place] [address] 96050- 4689 May, [facility] [id number] [place] [address] [id number] Apr, [facility] [id number] [place] [address] [id number]- 4132 Apr, [facility] [id number] [place] [address] 18054- 8843 Apr, Essential hypertension I10 [facility] [id number] [place] [address] 72480- 8490 Apr, [facility] [id number] [place] [address] 21898- 6371 Apr, Chronic pain syndrome G89.4 and Urge incontinence of urine N39.41 [facility] [id number] [place] [address] 53762- 1853 March, Acquired hypothyroidism E03.9 [facility] [id number] [place] [address] 87625- 0741 March, [facility] [address] 21656- 1163 March, [facility] [id number] [place] [address] 51453- 6894 March, Chronic pain syndrome G89.4 ; Essential [...] extremity L03.116 and Screening breast examination Z12.39 [facility] [id number] [place] [address] 59570- 1012 March, [facility] [id number] [place] [address] 87369- 4361 Feb, [facility] [id number] [place] [address] 94543- 2726 Feb, [facility] [id number] [place] [address] 66468- 6980 Feb, Chronic pain syndrome G89.4 [facility] [id number] [place] [address] 11267 -5248 Feb, Right foot pain M79.671 and Right foot sprain, initial encounter S93.601A [facility] [address] [address]- 0610 Jan, [facility] [id number] [place] [address] 38657- 8148 Jan, [facility] [id number] [place] [address] 72181- 3182 Jan, Chronic pain syndrome G89.4 [facility] [id number] [place] [address] 07097- 0343 Jan, [facility] [id number] [place] [address] 06647- 4406 Dec, [facility] [id number] [place] [address] 18276- 9815 Dec, [facility] [id number] [place] [address] 33234- 4811 Dec, Pain in right knee M25.561 ; Pain in left knee M25.562 ; Essential hypertension I10 ; Chronic stasis dermatitis I83.10 ; Restless legs syndrome G25.81 ; Acquired hypothyroidism E03.9 ; Dependence on nocturnal oxygen therapy Z99.81 ; Mixed hyperlipidemia E78.2 ; Lymphedema I89.0 ; Chronic pain syndrome G89.4 ; Gastroesophageal reflux disease without esophagitis K21.9 and Urge incontinence of urine N39.41 [facility] [address] [address]- 4659 Nov, Mixed hyperlipidemia E78.2 [facility] [address] [address]- 3205 Nov, [facility] [id number] [place] [address] 89870- 2735 Nov, [facility] [address] [address]- 1481 Nov, [facility] [address] [address]0167 Nov, Stasis ulcer, left I83.029 [facility] [address] [address]- 9813 Nov, [facility] [address] [address]- 6147 Oct, [facility] [address] [address]- 9039 Oct, [facility] [id number] [place] [address] 62196- 4230 Oct, [facility] [id number] [place] [address] 89589- 2907 Sep, [facility] [address] [address]- 0381 Sep, [address] [id number] Sep, [facility] [address] [address]- 4484 Aug, [facility] [address] [address]- 7499 Jul, [facility] [address] [address]- 1023 Jul, [facility] [address] [address]- 2149 Jul, [facility] [address] [address]- 2573 Jul, [facility] [id number] [address]- 7369 14 Jul, 2016 Chest pain, unspecified type R07.9 ; Dyspnea on exertion R06.09 ; Essential hypertension I10 ; Hyperlipidemia, unspecified hyperlipidemia type E78.5 ; Left bundle branch block I44.7 and Hypothyroidism, unspecified type E03.9 [facility] [id number] [place] [address] 40041 -5955 Jun, Fever, unspecified fever cause R50.9 ; Headache, unspecified headache type R51 ; SOB (shortness of breath) R06.02 and Strep pharyngitis J02.0 [facility] [id number] [place] [address] 34701- 2260 Jun, [facility] [id number] [place] [address] 99289- 5030 Jun, [facility] [address] 98104- 3588 Jun, Essential hypertension I10 ; Mixed hyperlipidemia E78.2 and Acquired hypothyroidism E03.9 [facility] [id number] [place] [address] 75711- 6656 Jun, Edema of both legs R60.0 ; Hypoxia R09.02 and Essential hypertension I10 [facility] [id number] [place] [address] 60537- 4321 Jun, [facility] [id number] [place] [address] 34644- 1789 Jun, Edema of both legs R60.0 ; Hypoxia R09.02 and Essential hypertension I10 [facility] [id number] [place] [address] 89578- 5631 Jun, Essential hypertension I10 ; Dependence on supplemental oxygen Z99.81 and Edema of both legs R60.0 [facility] [id number] [place] [address] 13831- 0468 May, Lumbar pain M54.5 ; Essential hypertension I10 ; Edema of both legs R60.0 ; Stasis dermatitis without varicosities I87.2 and Left knee pain M25.562 [facility] [id number] [place] [address] 52985- 1286 May, [facility] [id number] [place] [address] 92953- 8623 May, [facility] [address] [address]- 5633 May, [facility] [id number] [place] [address] 58688- 9060 Apr, [facility] [id number] [place] [address] 07080- 5898 Apr, [facility] [id number] [place] [address] 30259- 1560 March, [facility] [id number] [place] [address] 74320- 8529 March, Lymphedema I89.0 ; Morbid obesity due to excess calories E66.01 ; Alteration in mobility due to weakness R53.1 and Hypoxia R09.02 [facility] [id number] [place] [address] 77732- 0065 March, Abdominal wall mass R19.00 [facility] [id number] [place] [address] 72247- 9318 March, [facility] [id number] [place] [address] 07455- 1927 March, Abdominal wall mass R19.00 ; Lower abdominal pain R10.30 ; Alteration in mobility due to weakness R53.1 ; Hypoxia R09.02 and Lymphedema I89.0 [facility] [address] [address]- 6276 Feb, [facility] [id number] [place] [address] 57671- 6087 Feb, Acquired hypothyroidism E03.9 ; Dependence on machine for supplemental oxygen V46.2 ; Restless legs syndrome G25.81 ; Essential hypertension I10 ; Renal insufficiency N28.9 ; Chronic stasis dermatitis I83.10 ; Mixed hyperlipidemia E78.2 ; Other chronic pain 338.29 and Cellulitis of left lower extremity L03.116 [facility] [address] [address]- 2348 Feb, [facility] [id number] [place] [address] 18429- 2743 Feb, [facility] [address] 44775 -7389 Feb, Shortness of breath R06.02 and Bronchitis J40 [facility] [id number] [place] [address] 06807- 1247 Jan, Dependence on supplemental oxygen Z99.81 [facility] [address] 73558- 5633 Jan, [facility] [address] 02337- 3663 Dec, [facility] [address] 40545- 3116 Dec, [facility] [address] 87960- 8626 Nov, Osteoarthritis of knees, bilateral M17.0 [facility] [address] 59470- 6283 Nov, Dependence on machine for supplemental oxygen V46.2 ; Nocturnal hypoxia G47.34 and Urgency of urination R39.15 [facility] [id number] [place] [address] 64432- 4484 Nov, [facility] [address] 96798- 6680 Oct, Pain in right knee M25.561 and Pain in left knee M25.562 [facility] [address] 14489- 3117 Oct, Acquired hypothyroidism E03.9 ; Renal insufficiency N28.9 and Chronic stasis dermatitis I83.10 [facility] [id number] [place] [address] 76280- 6795 Oct, [facility] [address] 46984- 5527 Sep, Cellulitis L03.90 ; Left knee pain M25.562 ; Essential hypertension I10 ; Lymphedema I89.0 ; Lumbar pain M54.5 ; Morbid obesity due to excess calories E66.01 and Renal insufficiency N28.9 [facility] [id number] [place] [address] 99050- 2461 Sep, Cellulitis L03.90 and Lymphedema I89.0 [facility] [address] 99712- 1883 Sep, [facility] [address] 30716- 4616 Sep, [facility] [address] 07428- 1047 Sep, Left knee pain M25.562 ; Lumbar pain M54.5 ; Restless legs syndrome G25.81 ; Acquired hypothyroidism E03.9 and Essential hypertension I10 [facility] [address] 60829- 6852 Jul, [facility] [address] 68745- 7598 Jun, [facility] [id number] [place] [address] 33473- 8968 May, [facility] [id number] [place] [address] 90064- 6987 May, [facility] [address] 28288- 6987 May, Hypertension 997.91 ; Restless legs syndrome [RLS] 333.94 ; Unspecified venous (peripheral) insufficiency 459.81 ; Unspecified hypothyroidism 244.9 and Other chronic pain 338.29 [facility] [id number] [place] [address] 72862- 8154 Apr, [facility] [address] 15666- 3031 Apr, [facility] [address] [address]- 1104 Apr, Restless legs syndrome [RLS] 333.94 ; Shortness of breath 786.05 ; Unspecified venous (peripheral) insufficiency 459.81 ; Unspecified hypothyroidism 244.9 ; Obesity, unspecified 278.00 ; Other chronic pain 338.29 ; Hypertension 997.91 and Hyperlipidemia 272.4 [facility] [id number] [place] [address] 38925- 0221 Feb, [facility] [id number] [place] [address] 48018- 1278 Feb, [facility] [id number] [place] [address] 00855- 0806 Jan, [facility] [id number] [place] [address] 363458- 5947 Jan, [facility] [id number] [place] [address] 41816- 0472 Jan, [facility] [id number] [place] [address] 90665- 0472 Jan, [facility] [id number] [place] [address] 86017126- 9930 Jan, [facility] [address] [address] 6179 Jan, [facility] [id number] [address] 3288 Jan, [facility] [address] 5297 Jan, [facility] [id number] [place] [address] 944568- 4776 Jan, [facility] [address] 3543 Jan, [facility] [id number] [place] [address] 94712- 1380 Jan, [facility] [place] [facility] [address] [id number] [place] [address]- 4183 11 Jan, 2015 [facility] [place] [facility] [address] [id number] [place] [address]- 3396 Jan, [facility] [place] [facility] [address] [id number] [place] [address]- 9974 Jan, [facility] [place] [facility] [address] [id number] [place] [address]- 8742 Dec, [facility] [place] [facility] [address] [id number] [place] [address]- 5259 Dec, [facility] [place] [facility] [address] [id number] [place] [address]- 1952 Nov, [facility] [place] [facility] [address] [id number] [place] [address]- 8186 Nov, [facility] [place] [facility] [address] [id number] [place] [address]- 6620 Nov, [facility] [place] [facility] [address] [id number] [place] [address]- 0264 Nov, [facility] [place] [facility] [address] [id number] [place] [address]- 2810 Nov, [facility] [place] [facility] [address] [id number] [place] [address]- 9508 Nov, [facility] [place] [facility] [address] [id number] [place] [address]- 4749 Nov, [facility] [place] [facility] [address] [id number] [place] [address]- 1047 Nov, [facility] [place] [facility] [address] [id number] [place] [address]- 5372 Nov, [facility] [place] [facility] [address] [id number] [place] [address]- 3577 Nov, [facility] [place] [facility] [address] [id number] [place] [address]- 7081 Nov, [facility] [place] [facility] [address] [id number] [place] [address]- 0740 Nov, [facility] [place] [facility] [address] [id number] [place] [address]- 0063 Nov, [facility] [place] [facility] [address] [id number] [place] [address]- 9815 Nov, [facility] [place] [facility] [address] [id number] [place] [address]- 7920 Nov, [facility] [place] [facility] [address] [id number] [place] [address]- 4331 Nov, [facility] [place] [facility] [address] [id number] [place] [address] Oct, [facility] [place] [facility] [address] [id number] [place] [address] Oct, [facility] [place] [facility] [address] [id number] [place] [address] Sep, [facility] [place] [facility] [address] [id number] [place] [address] Aug, [facility] [place] [facility] [address] [id number] [place] [address] Aug, [facility] [place] [facility] [address] [id number] [place] [address] Aug, [facility] [place] [facility] [address] [id number] [place] [address] Aug, [facility] [place] [facility] [address] [id number] [place] [address] Aug, [facility] [place] [facility] [address] [id number] [place] [address] Aug, [facility] [place] [facility] [address] [id number] [place] [address] Aug, [facility] [place] [facility] [address] [id number] [place] [address] Aug, [facility] [place] [facility] [address] [id number] [place] [address] Aug, [facility] [place] [facility] [address] [id number] [place] [address] Aug, [facility] [place] [facility] [address] [id number] [place] [address] Jun, [facility] [place] [facility] [address] [id number] [place] [address] Jun, [facility] [place] [facility] [address] [id number] [place] [address] Jun, [facility] [place] [facility] [address] [id number] [place] [address] Jun, [facility] [place] [facility] [address] [id number] [place] [address] Jun, [facility] [place] [facility] [address] [id number] [place] [address] Jun, [facility] [place] [facility] [address] [id number] [place] [address] Jun, [facility] [place] [facility] [address] [id number] [place] [address]- [address] Jun, [facility] [place] [facility] [address] [id number] [place] [address] Jun, [facility] [place] [facility] [address] [id number] [place] [address] Jun, [facility] [place] [facility] [address] [id number] [place] [address] May, [facility] [place] [facility] [address] [id number] [place] [address] May, [facility] [place] [facility] [address] [id number] [place] [address] May, 2013 [facility] [place] [facility] [address] [id number] [place] [address] May, 2013 [facility] [place] [facility] [address] [id number] [place] [address] May, 2013 [facility] [place] [facility] [address] [id number] [place] [address] May, 2013 [facility] [place] [facility] [address] [id number] [place] [address] May, 2013 [facility] [place] [facility] [address] [id number] [place] [address] May, 2013 [facility] [place] [facility] [address] [id number] [place] [address] May, 2013 [facility] [place] [facility] [address] [id number] [place] [address] May, 2013 [facility] [place] [facility] [address] [id number] [place] [address] May, 2013 [facility] [place] [facility] [address] [id number] [place] [address] May, 2013 [facility] [place] [facility] [address] [id number] [place] [address] 1476 May, 2013 [facility] [place] [facility] [address] [id number] [place] [address] 2147 May, 2013 [facility] [place] [facility] [address] [id number] [place] [address] 7754 May, 2013 [facility] [place] [facility] [address] [id number] [place] [address] 1722 May, 2013 [facility] [place] [facility] [address] [id number] [place] [address] 8429 May, 2013 [facility] [place] [facility] [address] [id number] [place] [address] 1285 May, [facility] [place] [facility] [address] [id number] [place] [address]- 9420 Apr, [facility] [place] [facility] [address] [id number] [place] [address]- 5584 Apr, [facility] [place] [facility] [address] [id number] [place] [address]- 5643 Apr, [facility] [place] [facility] [address] [id number] [place] [address]- 0698 Apr, [facility] [place] [facility] [address] [id number] [place] [address]- 2381 Apr, [facility] [place] [facility] [address] [id number] [place] [address]- 4259 Apr, [facility] [place] [facility] [address] [id number] [place] [address]- 3692 Apr, [facility] [place] [facility] [address] [id number] [place] [address]- 6389 Apr, [facility] [place] [facility] [address] [id number] [place] [address]- 0698 Apr, [facility] [place] [facility] [address] [id number] [place] [address]- 8845 Apr, [facility] [place] [facility] [address] [id number] [place] [address]- 0136 Apr, [facility] [place] [facility] [address] [id number] [place] [address]- 8570 Apr, [facility] [place] [facility] [address] [id number] [place] [address]- 4917 March, [facility] [place] [facility] [address] [id number] [place] [address]- 0783 March, [facility] [place] [facility] [address] [id number] [place] [address]- 4613 March, [facility] [place] [facility] [address] [id number] [place] [address]- 1378 March, [facility] [place] [facility] [address] [id number] [place] [address]- 3001 March, [facility] [place] [facility] [address] [id number] [place] [address]- 2409 March, [facility] [place] [facility] [address] [id number] [place] [address]- 5366 March, [facility] [place] [facility] [address] [id number] [place] [address]- 2686 March, [facility] [place] [facility] [address] [id number] [place] [address]- 8837 March, [facility] [place] [facility] [address] [id number] [place] [address]- 1406 March, [facility] [place] [facility] [address] [id number] [place] [address]- 9089 March, [facility] [place] [facility] [address] [id number] [place] [address]- 1077 Feb, [facility] [place] [facility] [address] [id number] [place] [address]- 3438 Feb, [facility] [place] [facility] [address] [id number] [place] [address]- 0553 Feb, [facility] [place] [facility] [address] [id number] [place] [address]- 9526 Feb, [facility] [place] [facility] [address] [id number] [place] [address]- 7883 Feb, [facility] [place] [facility] [address] [id number] [place] [address]- 8079 Feb, [facility] [place] [facility] [address] [id number] [place] [address]- 1223 Feb, [facility] [place] [facility] [address] [id number] [place] [address]- 1102 Feb, [facility] [place] [facility] [address] [id number] [place] [address]- 9164 Feb, [facility] [place] [facility] [address] [id number] [place] [address]- 9786 Feb, [facility] [place] [facility] [address] [id number] [place] [address]- 3911 Feb, [facility] [place] [facility] [address] [id number] [place] [address]- 6912 Feb, [facility] [place] [facility] [address] [id number] [place] [address]- 1266 Feb, [facility] [place] [facility] [address] [id number] [place] [address]- 2207 Feb, [facility] [place] [facility] [address] [id number] [place] [address]- 5354 Feb, [facility] [place] [facility] [address] [id number] [place] [address]- 8880 Feb, [facility] [place] [facility] [address] [id number] [place] [address]- 9104 Feb, [facility] [place] [facility] [address] [id number] [place] [address]- 1616 Feb, [facility] [place] [facility] [address] [id number] [place] [address]- 5857 Feb, [facility] [place] [facility] [address] [id number] [place] [address]- 8046 Feb, [facility] [place] [facility] [address] [id number] [place] [address]- 6828 Jan, [facility] [place] [facility] [address] [id number] [place] [address]- 0484 Jan, [facility] [place] [facility] [address] [id number] [place] [address]- 1138 Jan, [facility] [place] [facility] [address] [id number] [place] [address]- 2856 Jan, [facility] [place] [facility] [address] [id number] [place] [address]- 8069 Jan, [facility] [place] [facility] [address] [id number] [place] [address]- 9552 24 Jan, 2014 [facility] [place] [facility] [address] [id number] [place] [address]- 3190 18 Jan, 2014 [facility] [place] [facility] [address] [id number] [place] [address]- 1434 18 Jan, 2014 [facility] [place] [facility] [address] [id number] [place] [address]- 3830 Jan, [facility] [place] [facility] [address] [id number] [place] [address]- 4892 14 Jan, 2014 [facility] [place] [facility] [address] [id number] [place] [address]- 6445 Jan, [facility] [place] [facility] [address] [id number] [place] [address]- 0302 Jan, [facility] [place] [facility] [address] [id number] [place] [address]- 8853 Jan, [facility] [place] [facility] [address] [id number] [place] [address]- 8533 Jan, [facility] [place] [facility] [address] [id number] [place] [address]- 5814 Dec, [facility] [place] [facility] [address] [id number] [place] [address]- 1749 Dec, [facility] [place] [facility] [address] [id number] [place] [address]- 7084 Dec, [facility] [place] [facility] [address] [id number] [place] [address]- 7193 Dec, [facility] [place] [facility] [address] [id number] [place] [address]- 7742 Dec, [facility] [place] [facility] [address] [id number] [place] [address]- 8709 Dec, [facility] [address] [id number] [place] [address]- 0126 Dec, [facility] [place] [facility] [address] [id number] [place] [address]- 8036 Dec, [facility] [address] [id number] [place] [address]- 3406 Dec, [facility] [place] [facility] [address] [id number] [place] [address]- 5716 Nov, [facility] [address] [id number] [place] [address]- 9676 Nov, [facility] [address] [id number] [place] [address]- 6277 Nov, [facility] [address] [id number] [place] [address]- 4277 Nov, [facility] [address] [id number] [place] [address]- 9221 Oct, [facility] [address] [id number] [place] [address]- 9798 Oct, [facility] [address] [id number] [place] [address]- 0484 Oct, [facility] [place] [facility] [address] [id number] [place] [address]- 2547 Oct, [facility] [place] [facility] [address] [id number] [place] [address] 2547 Oct, [facility] [place] [facility] [address] [id number] [place] [address] 2546 Oct, [facility] [place] [facility] [address] [id number] [place] [address]- 2546 Oct, [facility] [place] [facility] [address] [id number] [place] [address]- 3137 23 Oct, 2013 [facility] [address] [id number] [place] [address]- 1657 20 Oct, 2013 [facility] [place] [facility] [address] [id number] [place] [address]- 4486 19 Oct, 2013 [facility] [place] [facility] [address] [id number] [place] 19 Oct, 2013 [facility] [place] [facility] [address] [id number] [place] [address]- 5393 18 Oct, 2013 [facility] [place] [facility] [address] [id number] [place] [address]- 5605 18 Oct, 2013 [facility] [place] [facility] [address] [id number] [place] [address]- 6470 17 Oct, 2013 [facility] [place] [facility] [address] [id number] [place] [address]- 2498 17 Oct, 2013 [facility] [place] [facility] [address] [id number] [place] [address]- 5597 17 Oct, 2013 [facility] [place] [facility] [address] [id number] [place] [address]- 0323 17 Oct, 2013 [facility] [place] [facility] [address] [id number] [place] [address]- 6039 17 Oct, 2013 [facility] [place] [facility] [address] [id number] [place] [address]- 0062 17 Oct, 2013 [facility] [place] [facility] [address] [id number] [place] [address]- 6508 11 Oct, 2013 [facility] [place] [facility] [address] [id number] [place] [address]- 9572 11 Oct, 2013 [facility] [place] [facility] [address] [id number] [place] [address]- 5453 27 Sep, 2013 [facility] [place] [facility] [address] [id number] [place] [address]- 3215 27 Sep, 2013 [facility] [place] [facility] [address] [id number] [place] [address]- 1684 Sep, [facility] [address] [id number] [place] [address]- 2709 19 Sep, 2013 [facility] [place] [facility] [address] [id number] [place] [address]- 1037 18 Sep, 2013 [facility] [place] [facility] [address] [id number] [place] [address]- 8615 14 Sep, 2013 [facility] [place] [facility] [address] [id number] [place] [address]- 5577 14 Sep, 2013 [facility] [place] [facility] [address] [id number] [place] [address]- 6496 Sep, [facility] [place] [facility] [address] [id number] [place] [address]- 1956 Sep, [facility] [place] [facility] [address] [id number] [place] [address]- 8770 Sep, [facility] [place] [facility] [address] [id number] [place] [address]- 2223 Sep, [facility] [place] [facility] [address] [id number] [place] [address]- 8262 Sep, [facility] [place] [facility] [address] [id number] [place] [address]- 1069 Aug, [facility] [place] [facility] [address] [id number] [place] [address]- 7319 Aug, [facility] [place] [facility] [address] [id number] [place] [address]- 8321 Aug, [facility] [place] [facility] [address] [id number] [place] [address]- 4742 Aug, [facility] [place] [facility] [address] [id number] [place] [address]- 7583 Aug, [facility] [place] [facility] [address] [id number] [place] [address]- 2005 Aug, [facility] [place] [facility] [address] [id number] [place] [address]- 8520 Aug, 2012 [facility] [place] [facility] [address] [id number] [place] [address]- 2416 Aug, 2012 [facility] [place] [facility] [address] [id number] [place] [address]- 1616 Aug, 2012 [facility] [place] [facility] [address] [id number] [place] [address]- 3338 16 Aug, 2012 [facility] [place] [facility] [address] [id number] [place] [address]- 3686 Aug, [facility] [place] [facility] [address] [id number] [place] [address]- 0228 10 Aug, 2013 [facility] [place] [facility] [address] [id number] [place] [address]- 5079 08 Aug, 2013 [facility] [place] [facility] [address] [id number] [place] [address]- 0294 Aug, [facility] [place] [facility] [address] [id number] [place] [address]- 0597 Aug, [facility] [place] [facility] [address] [id number] [place] [address]- 2867 Aug, [facility] [place] [facility] [address] [id number] [place] [address]- 7220 Aug, [facility] [place] [facility] [address] [id number] [place] [address]- 6364 Jul, [facility] [place] [facility] [address] [id number] [place] [address]- 5157 Jun, [facility] [place] [facility] [address] [id number] [place] [address]- 0400 Jun, [facility] [place] [facility] [address] [id number] [place] [address]- 4758 May, [facility] [place] [facility] [address] [id number] [place] [address]- 7643 May, [facility] [place] [facility] [address] [id number] [place] [address]- 4023 Apr, [facility] [place] [facility] [address] [id number] [place] [address]- 9352 Apr, [facility] [place] [facility] [address] [id number] [place] [address]- 6357 Apr, [facility] [place] [facility] [address] [id number] [place] [address]- 6228 Apr, [facility] [place] [facility] [address] [id number] [place] [address]- 7812 Apr, [facility] [place] [facility] [address] [id number] [place] [address]- 3838 Apr, [facility] [place] [facility] [address] [id number] [place] [address]- 2895 Apr, [facility] [place] [facility] [address] [id number] [place] [address]- 6828 Apr, [facility] [place] [facility] [address] [id number] [place] [address]- 4146 Apr, [facility] [place] [facility] [address] [id number] [place] [address]- 4794 Apr, [facility] [place] [facility] [address] [id number] [place] [address]- 6929 Apr, [facility] [place] [facility] [address] [id number] [place] [address]- 2922 March, [facility] [place] [facility] [address] [id number] [place] [address]- 4254 March, [facility] [place] [facility] [address] [id number] [place] [address]- 4861 March, [facility] [place] [facility] [address] [id number] [place] [address]- 4913 March, [facility] [place] [facility] [address] [id number] [place] [address]- 8145 March, [facility] [address] [id number] [place] [address]- 5654 Feb, [facility] [address] [id number] [place] [address]- 9677 Feb, [facility] [address] [id number] [place] [address]- 7398 Jan, [facility] [address] [id number] [place] [address]- 6303 Jan, [facility] [address] [id number] [place] [address]- 9866 Jan, [facility] [address] [id number] [place] [address]- 4576 Jan, [facility] [address] [id number] [place] [address]- 5653 Jan, [facility] [address] [id number] [place] [address]- 8316 Dec, [facility] [address] [id number] [place] [address]- 0871 Dec, [facility] [address] [id number] [place] [address]- 1871 Nov, [facility] [address] [id number] [place] [address]- 1494 Nov, [facility] [address] [id number] [place] [address]- 1696 18 Nov, 2012 [facility] [address] [id number] [place] [address]- 5581 16 Nov, 2012 [facility] [address] [id number] [place] [address] 2546 15 Nov, 2012 [facility] [address] [id number] [place] [id number] 1254 14 Nov, 2012 [facility] [place] [facility] [address] [id number] [place] [address]- 5822 14 Nov, 2012 [facility] [place] [facility] [address] [id number] [place] [address]- 6381 Nov, [facility] [place] [facility] [address] [id number] [place] [address]- 0519 Nov, [facility] [place] [facility] [address] [id number] [place] [address]- 9628 Nov, [facility] [place] [facility] [address] [id number] [place] [address]- 5450 Nov, [facility] [place] [facility] [address] [id number] [place] [address]- 0023 Oct, [facility] [place] [facility] [address] [id number] [place] [address]- 4372 Oct, [facility] [place] [facility] [address] [id number] [place] [address]- 9525 Sep, [facility] [place] [facility] [address] [id number] [place] [address]- 4120 Sep, [facility] [place] [facility] [address] [id number] [place] [address]- 5238 Sep, [facility] [place] [facility] [address] [id number] [place] [address]- 6993 Sep, [facility] [place] [facility] [address] [id number] [place] [address]- 7078 Sep, [facility] [place] [facility] [address] [id number] [place] [address]- 3695 Sep, [facility] [place] [facility] [address] [id number] [place] [address]- 4786 Sep, [facility] [place] [facility] [address] [id number] [place] [address]- 3738 Sep, [facility] [place] [facility] [address] [id number] [place] [address]- 6182 Sep, [facility] [place] [facility] [address] [id number] [place] [address]- 2495 Sep, [facility] [place] [facility] [address] [id number] [place] [address]- 2242 Sep, [facility] [place] [facility] [address] [id number] [place] [address]- 6228 Sep, [facility] [place] [facility] [address] [id number] [place] [address]- 0265 Sep, [facility] [place] [facility] [id number] [place] [address], [place] [address]- 8227 Sep, [facility] [place] [facility] [address] [id number] [place] [address]- 6614 Aug, [facility] [place] [facility] [address] [facility] [id number] [place] [address]- 1512 Aug, [facility] [place] [facility] [address] [id number] [place] [address]- 3916 Aug, [facility] [place] [facility] [address] [id number] [place] [address]- 4482 Aug, [facility] [place] [facility] [address] [facility] [id number] [place] [address]- 3237 Aug, [facility] [place] [facility] [address] [id number] [place] [address]- 2051 Aug, [facility] [place] [facility] [address] [id number] [place] [address]- 4740 Aug, [facility] [place] [facility] [address] [id number] [place] [address]- 7774 Aug, [facility] [place] [facility] [address] [facility] [id number] [place] [address] Aug, [facility] [address] [facility] [id number] [place] [address] Aug, [facility] [address] [facility] [id number] [place] [address] Aug, [facility] [id number] [address] Aug, [facility] [address] [facility] [id number] [place] Aug, [facility] [address] [facility] [id number] [place] Aug, [facility] [address] [facility] [id number] [place] Aug, [facility] [id number] [place] [id number] Aug, [facility] [id number] [address] Aug, [facility] [address] [id number] [address] Jul, [facility] [id number] [address] Jun, [facility] [id number] [address] Aug, [facility] [id number] [address] Aug, [facility] [id number] [address] Aug, IMMUNIZATIONS No Known Immunizations SOCIAL HISTORY Never Assessed REASON FOR VISIT Weight management, SUKUMAR Arevalo, Follow up, ER visit for cellulitis to [facility] PLAN OF CARE Activity Details Follow Up 4 Weeks Reason:weight AB [employer] VITAL SIGNS Height 62 in 2018-02-13 Weight 472 lbs 2018-02-13 Temperature 98.7 degrees Fahrenheit 2018-02-13 Heart Rate 99 bpm 2018-02-13 Respiratory Rate 24 2018-02-13 Oximetry 91 % 2018-02-13 BMI 86.32 kg/m2 2018-02-13 Blood pressure systolic 126 mmHg 2018-02-13 Blood pressure diastolic 78 mmHg 2018-02-13 MEDICATIONS Medication Instructions Dosage Frequency Start Date End Date Duration Status Proventil HFA 108 (90 Base) MCG/ACT INHALE TWO PUFFS BY MOUTH EVERY 4 TO 6 HOURS NEEDED FOR COUGH OR WHEEZE 17 Active Omeprazole 20 mg Orally twice a day 1 capsule 12h Not-Taking Cymbalta 60 mg Orally Once a day 1 capsule 24h 30 Not-Taking Metoprolol Tartrate 25 MG Orally Twice a day 1 tablet with food 12h 30 Active Incontinence Supplies - Depends brief-size requested by patient 8h Apr Active Neurontin 300 MG Orally Once a day at night 1 capsule 30 Active Wheelchair 1 as directed March, Active Levothyroxine Sodium 75 mcg Orally Once a day 1 tablet on an empty stomach in the morning 24h 30 Active Oxygen 2L Not-Taking Ropinirole HCl 4 MG Orally Once a day 1 tablet 1 to 3 hours before bedtime 24h 30 Active Plavix 75 MG Orally Once a day 1 tablet 24h 30 Not-Taking Potassium Chloride ER 20 meq Orally Once a day 1 tablet with food 24h 30 Not-Taking Aspir-81 81 MG Orally Once a day 1 tablet 24h Not-Taking Triamcinolone Acetonide 0.1 % APPLY TO AFFECTED AREA TWICE DAILY FOR 10 DAYS 10 Active Entresto 24-26 MG Orally Twice a day 1 tablet 12h Active Albuterol Sulfate 90 mcg/actuation take 2 puffs by Inhalation route every 4 -6 hours as needed PRN cough or wheezing Jan, Active Cyclobenzaprine HCl 10 mg Orally at bedtime 1 tablet 28 Active Keflex 500 mg Orally 3 times a day 1 capsule 8h Jan, Feb, 07 days Active Simvastatin 20 mg Orally at bedtime 1 tablet Active Metolazone 2.5 MG Orally Once a day 1 tablet 24h 30 Not-Taking RESULTS No Results PROCEDURES Procedure Date Ordered Result Body Site LAB NOT BILLED BY [facility] February 13, 2018 MARGY, ROUTINE* February 13, 2018 INSTRUCTIONS MEDICATIONS ADMINISTERED No Known Medications [...]
--- OUTSIDE RECORDS SUMMARY | 2018-09-08 15:17 | XMS REPORT ---
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 Active 03775283 Problem Urge incontinence of urine N39.41 Active 72222355 Problem Dependence on supplemental oxygen Z99.81 Active 718788601292 Problem Other chronic pain G89.29 Active 84150738 Problem Restless legs syndrome G25.81 Active 607812717 Problem Chronic systolic heart failure I50.22 Active 005029303 Problem Chronic pain syndrome G89.4 Active 792538476 Problem Gastroesophageal reflux disease without esophagitis K21.9 Active 612632862 Problem Morbid obesity E66.01 Active 008919822 Problem Morbid (severe) obesity due to excess calories E66.01 Active 894102889 Problem Lumbar pain M54.5 Active 127860541 Problem Chronic stasis dermatitis I83.10 Active 49334123 Problem Essential hypertension I10 Active 16666154 Problem Acquired hypothyroidism E03.9 Active 733302995 Problem Nocturnal hypoxia G47.34 Active 806020003 Problem Mixed hyperlipidemia E78.2 Active 532934839 Problem Renal insufficiency N28.9 Active 516982336 Problem Edema of both legs R60.0 Active 816516145 Problem Lymphedema I89.0 Active 000044284 Problem Stasis dermatitis without varicosities I87.2 Active 49029653 ALLERGIES No Information ENCOUNTERS Encounter Location Date Diagnosis [facility] [id number], [place] [address] May, [facility] [id number], [place] [address] 2691 May, [facility] [id number], [place] [address] 7976 May, [facility] [id number] [place] [address] 90893- 7803 19 Apr, 2018 Essential hypertension I10 ; Chronic systolic heart failure I50.22 ; Pain in right knee M25.561 ; Pain in left knee M25.562 ; Other chronic pain G89.29 ; Mixed hyperlipidemia E78.2 ; Morbid obesity E66.01 and Body mass index (BMI) 70 or greater, adult Z68.45 [facility] [id number] [place] [address] 54784- 6510 18 Apr, 2018 [facility] [id number] [place] [address] 21539- 5211 Apr, Acquired hypothyroidism E03.9 [facility] [id number] [place] [address] 92173- 7271 Apr, Acquired hypothyroidism E03.9 [facility] [id number] [place] [address] 20929- 8677 Apr, [facility] [id number] [place] [address] 24298- 6977 Apr, [facility] [id number] [place] [address] 75300- 2995 Apr, Acquired hypothyroidism E03.9 ; Morbid (severe) obesity due to excess calories E66.01 ; Body mass index (BMI) 70 or greater, adult Z68.45 ; Restless legs syndrome G25.81 ; Essential hypertension I10 and Lymphedema I89.0 [facility] [id number] [place] [address] 41796- 4765 Feb, [facility] [id number] [place] [address] 34438- 5067 Jan, [facility] [id number] [place] [address] 25188- 2379 Jan, [facility] [id number] [place] [address] 00549- 0322 Jan, Acquired hypothyroidism E03.9 ; Morbid (severe) obesity due to excess calories E66.01 ; Body mass index (BMI) 70 or greater, adult Z68.45 ; Cellulitis of left anterior lower leg L03.116 ; Restless legs syndrome G25.81 ; Nocturnal hypoxia G47.34 and Dependence on supplemental oxygen Z99.81 [facility] [id number] [place] [address] 31138- 5957 Jan, [facility] [id number] [place] [address] 19501- 6456 Dec, [facility] [address] 10388- 3290 Oct, [facility] [address] 54861- 6900 Oct, [facility] [address] 68555- 2012 Sep, [facility] [id number] [place] [address] 05722- 2441 Sep, [facility] [address] 22756- 1568 Sep, Dental examination Z01.20 [facility] [id number] [place] [address] 16914- 3264 Sep, Morbid obesity due to excess calories E66.01 ; Body mass index (BMI) of 70 or greater in adult Z68.45 ; Stasis dermatitis without varicosities I87.2 ; Lymphedema I89.0 ; Renal insufficiency N28.9 ; Acquired hypothyroidism E03.9 ; Cellulitis L03.90 ; Bronchitis J40 and BMI 40.0-44.9, adult Z68.41 [facility] [id number] [place] [address] 72642- 8977 Aug, [facility] [id number] [place] [address] [id number] Aug, Dental examination Z01.20 [facility] [id number] [place] [address] 64966- 5993 Aug, [facility] [id number] [place] [address] 61344- 3697 Jul, [facility] [id number] [place] [address] 52301- 8243 Jul, [facility] [address] 53621- 8635 18 Jul, 2017 [facility] [id number] [place] [address] 75036- 7632 Jul, [facility] [id number] [place] [address] 72657- 4469 Jul, [facility] [id number] [place] [address] 68222- 8546 Jun, [facility] [id number] [place] [address] 48376- 9491 Jun, Dependence on nocturnal oxygen therapy Z99.81 ; Morbid obesity due to excess calories E66.01 and Bronchitis J40 [facility] [id number] [place] [address] 75423- 7682 Jun, Restless legs syndrome G25.81 [facility] [id number] [place] [address] 61064- 0654 Jun, [facility] [id number] [place] [address] 41850- 2511 May, [facility] [id number] [place] [address] [id number] Apr, [facility] [id number] [place] [address] 23719- 9320 Apr, [facility] [id number] [place] [address] 47777- 4975 Apr, Essential hypertension I10 [facility] [id number] [place] [address] 81709- 3552 Apr, [facility] [id number] [place] [address] 84955- 7055 Apr, Chronic pain syndrome G89.4 and Urge incontinence of urine N39.41 [facility] [id number] [place] [address] 10874- 9639 March, Acquired hypothyroidism E03.9 [facility] [id number] [place] [address] 82773- 8611 March, [facility] [id number] [place] [address] 46432- 0768 March, [facility] [id number] [place] [address] 45292- 5117 March, Chronic pain syndrome G89.4 ; Essential [...] extremity L03.116 and Screening breast examination Z12.39 [facility] [id number] [place] [address] 48964- 8630 March, [facility] [id number] [place] [address] 66783- 8053 Feb, [facility] [id number] [place] [address] 64048- 5048 Feb, [facility] [id number] [place] [address] 27879- 7596 Feb, Chronic pain syndrome G89.4 [facility] [id number] [place] [address] 94731 -1546 Feb, Right foot pain M79.671 and Right foot sprain, initial encounter S93.601A [facility] [id number], [place] [address]- 0195 Jan, [facility] [id number] [place] [address] 78485- 8695 Jan, [facility] [id number] [place] [address] 16141- 1448 Jan, Chronic pain syndrome G89.4 [facility] [id number] [place] [address] 45341- 9818 Jan, [facility] [id number] [place] [address] 76910- 3072 Dec, [facility] [id number] [place] [address] 56740- 7854 Dec, [facility] [id number] [place] [address] 05708- 2044 Dec, Pain in right knee M25.561 ; Pain in left knee M25.562 ; Essential hypertension I10 ; Chronic stasis dermatitis I83.10 ; Restless legs syndrome G25.81 ; Acquired hypothyroidism E03.9 ; Dependence on nocturnal oxygen therapy Z99.81 ; Mixed hyperlipidemia E78.2 ; Lymphedema I89.0 ; Chronic pain syndrome G89.4 ; Gastroesophageal reflux disease without esophagitis K21.9 and Urge incontinence of urine N39.41 [facility] [address], [place] [address]- 7765 Nov, Mixed hyperlipidemia E78.2 [facility] [id number] [place] [address] 36292- 4035 Nov, [facility] [address], [place] [address]- 3315 Nov, [facility] [id number] [place] [address] 90220- 8431 Nov, [facility] [address], [place] [address] -0351 Nov, Stasis ulcer, left I83.029 [facility] [id number], [place] [address]- 9358 Nov, [facility] [address], [place] [address]- 5880 Oct, [facility] [address], [place] [address]- 8700 Oct, [facility] [id number], [place] [address]- 6396 Oct, [facility] [id number], [place] [address]- 5045 Sep, [facility] [id number], [place] [address]- 8223 Sep, [id number] [id number] Sep, [facility] [id number], [place] [address]- 4168 Aug, [facility] [id number], [place] [address]- 0697 Jul, [facility] [id number], [place] [address]- 1788 Jul, [facility] [id number], [place] [address]- 8217 Jul, [facility] [address], [place] [address]- 0689 Jul, [facility] [id number], [place] [address]- 0597 Jul, Chest pain, unspecified type R07.9 ; Dyspnea on exertion R06.09 ; Essential hypertension I10 ; Hyperlipidemia, unspecified hyperlipidemia type E78.5 ; Left bundle branch block I44.7 and Hypothyroidism, unspecified type E03.9 [facility] [id number], [place] [address]70 Jun, Fever, unspecified fever cause R50.9 ; Headache, unspecified headache type R51 ; SOB (shortness of breath) R06.02 and Strep pharyngitis J02.0 [address] [address] 43284- 1937 Jun, [facility] [address] 61224- 2122 Jun, [facility] [address] 51626- 3454 Jun, Essential hypertension I10 ; Mixed hyperlipidemia E78.2 and Acquired hypothyroidism E03.9 [facility] [address] 52941- 0954 Jun, Edema of both legs R60.0 ; Hypoxia R09.02 and Essential hypertension I10 [address] [address] 92280- 5210 Jun, [address] [address] 28704- 5032 Jun, Edema of both legs R60.0 ; Hypoxia R09.02 and Essential hypertension I10 [facility] [address] 93975- 2294 Jun, Essential hypertension I10 ; Dependence on supplemental oxygen Z99.81 and Edema of both legs R60.0 [facility] [address] 59913- 4627 May, Lumbar pain M54.5 ; Essential hypertension I10 ; Edema of both legs R60.0 ; Stasis dermatitis without varicosities I87.2 and Left knee pain M25.562 [facility] [address] 72105- 2829 May, [facility] [address] 44767- 0563 May, [facility] [address] 01504- 2600 May, [facility] [id number] [place] [address] 87241- 5754 Apr, [facility] [id number] [place] [address] 55888- 6131 Apr, [facility] [id number] [place] [address] 18301- 5047 March, [facility] [id number] [place] [address] 04844- 0122 March, Lymphedema I89.0 ; Morbid obesity due to excess calories E66.01 ; Alteration in mobility due to weakness R53.1 and Hypoxia R09.02 [facility] [id number] [place] [address] 76997- 5201 March, Abdominal wall mass R19.00 [facility] [id number] [place] [address] 42483- 1005 March, [facility] [id number] [place] [address] 54756- 3036 March, Abdominal wall mass R19.00 ; Lower abdominal pain R10.30 ; Alteration in mobility due to weakness R53.1 ; Hypoxia R09.02 and Lymphedema I89.0 [facility] [id number] [place] [address] 78760- 1382 Feb, [facility] [id number] [place] [address] 64036- 8274 Feb, Acquired hypothyroidism E03.9 ; Dependence on machine for supplemental oxygen V46.2 ; Restless legs syndrome G25.81 ; Essential hypertension I10 ; Renal insufficiency N28.9 ; Chronic stasis dermatitis I83.10 ; Mixed hyperlipidemia E78.2 ; Other chronic pain 338.29 and Cellulitis of left lower extremity L03.116 [facility] [id number] [place] [address] 56540- 5227 Feb, [facility] [id number] [place] [address] 74429- 6128 Feb, [facility] [id number] [place] [address] 92731 -2467 Feb, Shortness of breath R06.02 and Bronchitis J40 [facility] [id number] [place] [address] 46521- 2413 Jan, Dependence on supplemental oxygen Z99.81 [facility] [address] 01291- 5674 Jan, [facility] [address] 96193- 4051 Dec, [facility] [address] 89309- 6157 Dec, [facility] [address] 80373- 6602 Nov, Osteoarthritis of knees, bilateral M17.0 [facility] [address] 48555- 0517 Nov, Dependence on machine for supplemental oxygen V46.2 ; Nocturnal hypoxia G47.34 and Urgency of urination R39.15 [facility] [id number] [place] [address] 71022- 8349 Nov, [facility] [id number] [place] [address] 41995- 7104 Oct, Pain in right knee M25.561 and Pain in left knee M25.562 [facility] [id number] [place] [address] 95054- 1908 Oct, Acquired hypothyroidism E03.9 ; Renal insufficiency N28.9 and Chronic stasis dermatitis I83.10 [facility] [id number] [place] [address] 54707- 2199 Oct, [facility] [id number] [place] [address] 19570- 1425 Sep, Cellulitis L03.90 ; Left knee pain M25.562 ; Essential hypertension I10 ; Lymphedema I89.0 ; Lumbar pain M54.5 ; Morbid obesity due to excess calories E66.01 and Renal insufficiency N28.9 [facility] [address] 90168- 9100 Sep, Cellulitis L03.90 and Lymphedema I89.0 [facility] [address] 91258- 4676 Sep, [facility] [address] 74586- 1629 Sep, [facility] [address] 85440- 3693 Sep, Left knee pain M25.562 ; Lumbar pain M54.5 ; Restless legs syndrome G25.81 ; Acquired hypothyroidism E03.9 and Essential hypertension I10 [facility] [address] 51170- 0344 Jul, [facility] [address] 31367- 8597 Jun, [facility] [address] 60728- 1232 May, [facility] [id number] [place] [address] 07914- 7154 May, [facility] [address] 70044- 0522 May, Hypertension 997.91 ; Restless legs syndrome [RLS] 333.94 ; Unspecified venous (peripheral) insufficiency 459.81 ; Unspecified hypothyroidism 244.9 and Other chronic pain 338.29 [facility] [address] 32918- 1663 Apr, [facility] [address] 97688- 8880 Apr, [facility] [address] [place] [address]- 9434 Apr, Restless legs syndrome [RLS] 333.94 ; Shortness of breath 786.05 ; Unspecified venous (peripheral) insufficiency 459.81 ; Unspecified hypothyroidism 244.9 ; Obesity, unspecified 278.00 ; Other chronic pain 338.29 ; Hypertension 997.91 and Hyperlipidemia 272.4 [facility] [address], [place] [address]- 9471 Feb, [facility] [id number] [place] [address] 090519- 9477 Feb, [facility] [id number] [place] [address] 55419- 2749 Jan, [facility] [id number] [place] [address] 08343784- 4652 Jan, [facility] [id number] [place] [address] 91136- 2981 Jan, [facility] [id number], [place] [address]- 5127 Jan, [facility] [id number], [place] [address]- 6143 Jan, [facility] [address], [place] [address]- 1390 Jan, [facility] [address], [place] [address]- 9301 Jan, [facility] [id number] [address] 4619 Jan, [facility] [id number] 1589 Jan, [facility] [address] 3204 Jan, [facility] [address] 2878 Jan, [facility] [place] [facility] [address] [id number] [place] [address]- 5274 11 Jan, 2015 [facility] [place] [facility] [address] [id number] [place] [address]- 2413 Jan, [facility] [place] [facility] [address] [id number] [place] [address]- 5017 Jan, [facility] [place] [facility] [address] [id number] [place] [address]- 5556 Dec, [facility] [place] [facility] [address] [id number] [place] [address]- 2772 Dec, [facility] [place] [facility] [address] [id number] [place] [address]- 1769 Nov, [facility] [place] [facility] [address] [id number] [place] [address]- 7127 Nov, [facility] [place] [facility] [address] [id number] [place] [address]- 1546 Nov, [facility] [place] [facility] [address] [id number] [place] [address]- 6785 Nov, [facility] [place] [facility] [address] [id number] [place] [address]- 2645 Nov, [facility] [place] [facility] [address] [id number] [place] [address]- 6487 Nov, [facility] [place] [facility] [address] [id number] [place] [address]- 7993 Nov, [facility] [place] [facility] [address] [id number] [place] [address]- 8972 Nov, [facility] [place] [facility] [address] [id number] [place] [address]- 3738 Nov, [facility] [place] [facility] [address] [id number] [place] [address]- 6312 14 Nov, 2014 [facility] [place] [facility] [address] [id number], [place] [address]- 6760 Nov, [facility] [place] [facility] [address] [id number] [place] [address]- 8411 Nov, [facility] [place] [facility] [address] [id number] [place] 9982 Nov, [facility] [place] [facility] [address] [id number] [place] [address]- 6038 Nov, [facility] [place] [facility] [address] [id number] [place] [address]- 3142 Nov, [facility] [place] [facility] [address] [id number] [place] [address]- 8892 Nov, [facility] [place] [facility] [address] [id number] [place] [address]- 1081 Oct, [facility] [place] [facility] [address] [id number] [place] [address]- 9718 Oct, [facility] [place] [facility] [address] [id number] [place] [address]- 2689 Sep, [facility] [place] [facility] [address] [id number] [place] [address]- 7468 Aug, [facility] [place] [facility] [address] [id number] [place] [address]- 5628 Aug, [facility] [place] [facility] [address] [id number], [place] [address]- 4823 Aug, [facility] [place] [facility] [address] [id number], [place] [address]- 5938 Aug, [facility] [place] [facility] [address] [id number] [place] [address]- 7107 Aug, [facility] [place] [facility] [address] [id number] [place] [address]- 9116 Aug, [facility] [place] [facility] [address] [id number] [place] [address]- 8418 Aug, [facility] [place] [facility] [address] [id number] [place] [address]- 3291 Aug, [facility] [place] [facility] [address] [id number] [place] [address] Aug, [facility] [place] [facility] [address] [id number] [place] [address] Aug, [facility] [place] [facility] [address] [id number] [place] [address] Jun, [facility] [place] [facility] [address] [id number] [place] [address] Jun, [facility] [place] [facility] [address] [id number] [place] [address] Jun, [facility] [place] [facility] [address] [id number] [place] [address] Jun, [facility] [place] [facility] [address] [id number] [place] [address] Jun, [facility] [place] [facility] [address] [id number] [place] [address] Jun, [facility] [place] [facility] [address] [id number] [place] [address] Jun, [facility] [place] [facility] [address] [id number] [place] [address] Jun, [facility] [place] [facility] [address] [id number] [place] [address] Jun, [facility] [place] [facility] [address] [id number] [place] [address] Jun, [facility] [place] [facility] [address] [id number] [place] [address] May, [facility] [place] [facility] [address] [id number] [place] [address] May, [facility] [place] [facility] [address] [id number] [place] [address] May, [facility] [place] [facility] [address] [id number] [place] [address] May, 2013 [facility] [place] [facility] [address] [id number] [place] [address] May, 2013 [facility] [place] [facility] [address] [id number] [place] [address] May, 2013 [facility] [place] [facility] [address] [id number] [place] [address] May, 2013 [facility] [place] [facility] [address] [id number] [place] [address] May, 2013 [facility] [place] [facility] [address] [id number] [place] [address] May, 2013 [facility] [place] [facility] [address] [id number] [place] [address] May, 2013 [facility] [place] [facility] [address] [id number] [place] [address]- [address] May, 2013 [facility] [place] [facility] [address] [id number] [place] [address] May, 2013 [facility] [place] [facility] [address] [id number] [place] [address] May, [facility] [place] [facility] [address] [id number] [place] [address] May, 2013 [facility] [place] [facility] [address] [id number] [place] [address] May, [facility] [place] [facility] [address] [id number] [place] [address] May, 2013 [facility] [place] [facility] [address] [id number] [place] [address] May, [facility] [place] [facility] [address] [id number] [place] [address] May, 2013 [facility] [place] [facility] [address] [id number] [place] [address] Apr, [facility] [place] [facility] [address] [id number] [place] [address] Apr, [facility] [place] [facility] [address] [id number] [place] [address] Apr, [facility] [place] [facility] [address] [address] [id number] [place] [address] Apr, [facility] [place] [facility] [address] [id number] [place] [address] 7310 Apr, [facility] [place] [facility] [address] [id number] [place] [address] 0185 Apr, [facility] [place] [facility] [address] [id number] [place] [address] 5917 Apr, [facility] [place] [facility] [address] [id number] [place] [address] 3414 Apr, [facility] [place] [facility] [address] [id number] [place] [address] 3962 Apr, [facility] [place] [facility] [address] [id number] [place] [address] 2044 Apr, [facility] [place] [facility] [address] [id number] [place] [address]- 4204 Apr, [facility] [place] [facility] [address] [id number] [place] [address]- 3376 Apr, [facility] [place] [facility] [address] [id number] [place] [address] 7854 March, [facility] [place] [facility] [address] [id number] [place] [address] 6411 March, [facility] [place] [facility] [address] [id number] [place] [address]- 2102 March, [facility] [place] [facility] [address] [id number] [place] [address] 8727 March, [facility] [place] [facility] [address] [id number] [place] [address]- 2585 March, [facility] [place] [facility] [address] [id number] [place] [address]- 2602 March, [facility] [place] [facility] [address] [id number] [place] [address]- 6887 March, [facility] [place] [facility] [address] [id number] [place] [address]- 2422 March, [facility] [place] [facility] [address] [id number] [place] [address] 7250 March, [facility] [place] [facility] [address] [id number] [place] [address]- 5396 March, [facility] [place] [facility] [address] [id number] [place] [address] 3820 March, [facility] [place] [facility] [address] [id number] [place] [address]- 4223 Feb, [facility] [place] [facility] [address] [id number] [place] [address]- 6202 Feb, [facility] [place] [facility] [address] [id number] [place] [address]- 3368 Feb, [facility] [place] [facility] [address] [id number] [place] [address]- 1837 Feb, [facility] [place] [facility] [address] [id number] [place] [address]- 8716 Feb, [facility] [place] [facility] [address] [id number] [place] [address]- 1085 Feb, [facility] [place] [facility] [address] [id number] [place] [address] 1926 Feb, [facility] [place] [facility] [address] [id number] [place] [address] 8642 Feb, [facility] [place] [facility] [address] [id number] [place] [address]- 2671 Feb, [facility] [place] [facility] [address] [id number] [place] [address]- 3143 Feb, [facility] [place] [facility] [address] [id number] [place] [address]- 9464 Feb, [facility] [place] [facility] [address] [id number] [place] [address]- 0394 Feb, [facility] [place] [facility] [address] [id number] [place] [address]- 4981 Feb, [facility] [place] [facility] [address] [id number] [place] [address]- 3331 Feb, [facility] [place] [facility] [address] [id number] [place] [address]- 1030 Feb, [facility] [place] [facility] [address] [id number] [place] [address]- 9797 Feb, [facility] [place] [facility] [address] [id number] [place] [address]- 6183 Feb, [facility] [place] [facility] [address] [id number] [place] [address]- 2525 Feb, [facility] [place] [facility] [address] [id number] [place] [address]- 9738 Feb, [facility] [place] [facility] [address] [id number] [place] [address]- 2607 Feb, [facility] [place] [facility] [address] [id number], [place] [address] 8685 Jan, [facility] [place] [facility] [address] [id number] [place] [address]- 2569 Jan, [facility] [place] [facility] [address] [id number] [place] [address]- 1200 Jan, [facility] [place] [facility] [address] [id number] [place] [address]- 3171 Jan, [facility] [place] [facility] [address] [id number] [place] [address]- 9209 24 Jan, 2014 [facility] [place] [facility] [address] [id number] [place] [address]- 3259 24 Jan, 2014 [facility] [place] [facility] [address] [id number] [place] [address]- 4416 18 Jan, 2014 [facility] [place] [facility] [address] [id number] [place] [address]- 4262 18 Jan, 2014 [facility] [place] [facility] [address] [id number] [place] [address]- 1330 14 Jan, 2014 [facility] [place] [facility] [address] [id number] [place] [address]- 0066 14 Jan, 2014 [facility] [place] [facility] [address] [id number] [place] [address]- 4956 11 Jan, 2014 [facility] [place] [facility] [address] [id number] [place] [address]- 1272 Jan, [facility] [place] [facility] [address] [id number] [place] [address]- 2889 05 Jan, 2014 [facility] [place] [facility] [address] [id number] [place] [address]- 2737 05 Jan, 2014 [facility] [place] [facility] [address] [facility] [id number] [place] [address]- 2359 Dec, [facility] [place] [facility] [address] [id number] [place] [address]- 0642 Dec, [facility] [place] [facility] [address] [id number] [place] [address]- 8780 Dec, [facility] [place] [facility] [address] [id number] [place] [address] Dec, [facility] [place] [facility] [address] [id number] [place] [address]- 4969 20 Dec, 2013 [facility] [place] [facility] [address] [id number] [place] [address]- 9710 Dec, [facility] [place] [facility] [address] [id number] [place] [address]- 7937 Dec, [facility] [place] [facility] [address] [id number] [place] [address]- 1247 Dec, [facility] [place] [facility] [address] [id number] [place] [address]- 7235 Dec, [facility] [place] [facility] [address] [id number] [place] [address]- 7849 Nov, [facility] [place] [facility] [address] [id number] [place] [address]- 1227 Nov, [facility] [place] [facility] [address] [id number] [place] [address]- 1440 Nov, [facility] [place] [facility] [address] [id number] [place] [address]- 0752 Nov, [facility] [place] [facility] [address] [id number] [place] [address]- 5894 Oct, [facility] [place] [facility] [address] [id number] [place] [address]- 2306 Oct, [facility] [place] [facility] [address] [id number] [place] [address]- 1061 Oct, [facility] [place] [facility] [address] [id number] [place] [address]- 0300 Oct, [facility] [place] [facility] [address] [id number], [place] [address]- 7075 Oct, [facility] [place] [facility] [address] [id number] [place] [address]- 3240 Oct, [facility] [place] [facility] [address] [id number] [place] [address]- 3824 Oct, [facility] [place] [facility] [address] [id number] [place] [address]- 9783 Oct, [facility] [place] [facility] [address] [id number] [place] [address]- 8501 20 Oct, 2012 [facility] [address] [id number] [place] [address]- 1860 19 Oct, 2012 [facility] [address] [id number] [place] [address]- 1740 19 Oct, 2013 [facility] [address] [id number] [place] [address] 18 Oct, 2013 [facility] [address] [id number] [place] [address]- 1239 18 Oct, 2013 [facility] [address] [id number] [place] [address]- 0815 17 Oct, 2013 [facility] [address] [id number] [place] [address]- 8954 17 Oct, 2013 [facility] [address] [id number] [place] [address]- 8804 17 Oct, 2013 [facility] [address] [id number] [place] [address]- 3362 17 Oct, 2013 [facility] [address] [id number] [place] [address]- 9323 17 Oct, 2013 [facility] [address] [id number] [place] [address]- 7241 17 Oct, 2013 [facility] [address] [id number] [place] [address]- 6472 11 Oct, 2013 [facility] [address] [id number] [place] [address]- 9022 11 Oct, 2013 [facility] [address] [id number] [place] [address]- 9601 27 Sep, 2013 [facility] [address] [id number] [place] [address]- 5275 27 Sep, 2013 [facility] [address] [id number] [place] [address]- 4583 Sep, [facility] [place] [facility] [address] [id number] [place] [address]- 0566 Sep, [facility] [place] [facility] [address] [id number] [place] [address]- 5681 18 Sep, 2013 [facility] [place] [facility] [address] [id number] [place] [address]- 9751 Sep, [facility] [place] [facility] [address] [id number] [place] [address]- 9967 14 Sep, 2013 [facility] [place] [facility] [address] [id number] [place] [address]- 0658 Sep, [facility] [place] [facility] [address] [id number] [place] [address]- 5679 Sep, [facility] [place] [facility] [address] [id number] [place] [address]- 3376 Sep, [facility] [place] [facility] [address] [id number] [place] [address]- 5479 Sep, [facility] [place] [facility] [address] [id number] [place] [address]- 2168 Sep, [facility] [place] [facility] [address] [id number], [place] [address]- 7908 Aug, [facility] [place] [facility] [address] [id number], [place] [address]- 5437 Aug, [facility] [place] [facility] [address] [id number], [place] [address]- 6590 Aug, [facility] [place] [facility] [address] [id number], [place] [address]- 0559 Aug, [facility] [place] [facility] [address] [id number], [place] [address]- 5056 Aug, [facility] [place] [facility] [address] [id number], [place] [address]- 2806 Aug, [facility] [place] [facility] [address] [id number], [place] [address]- 6830 Aug, 2012 [facility] [place] [facility] [address] [id number] [place] [address]- 4302 Aug, 2012 [facility] [place] [facility] [address] [id number] [place] [address]- 5181 Aug, 2012 [facility] [place] [facility] [address] [id number] [place] 9613 16 Aug, 2012 [facility] [place] [facility] [address] [id number] [place] [address]- 6966 Aug, 2012 [facility] [place] [facility] [address] [id number] [place] [address]- 0500 10 Aug, 2012 [facility] [place] [facility] [address] [id number] [place] [address]- 1406 08 Aug, 2013 [facility] [place] [facility] [address] [id number] [place] [address]- 4423 Aug, [facility] [place] [facility] [address] [id number] [place] [address]- 3501 Aug, [facility] [place] [facility] [address] [id number] [place] [address]- 4066 Aug, [facility] [place] [facility] [address] [id number] [place] [address]- 8783 Aug, [facility] [place] [facility] [address] [id number] [place] [address]- 5526 Jul, [facility] [place] [facility] [address] [id number] [place] [address]- 0901 Jun, [facility] [place] [facility] [address] [id number] [place] [address]- 9028 Jun, [facility] [place] [facility] [address] [id number] [place] [address]- 5260 May, [facility] [place] [facility] [address] [id number] [place] [address]- 6490 May, [facility] [place] [facility] [address] [id number] [place] [address]- 5966 26 Apr, 2013 [facility] [address] [id number] [place] [address]- 4871 Apr, [facility] [place] [facility] [address] [id number] [place] [address]- 6455 Apr, [facility] [place] [facility] [address] [id number] [place] [address]- 4916 Apr, [facility] [place] [facility] [address] [id number] [place] [address]- 9694 18 Apr, 2013 [facility] [place] [facility] [address] [id number] [place] [address]- 4777 10 Apr, 2013 [facility] [place] [facility] [address] [id number] [place] [address]- 8770 07 Apr, 2013 [facility] [place] [facility] [address] [id number] [place] [address]- 8633 07 Apr, 2013 [facility] [address] [id number] [place] [address]- 1408 06 Apr, 2013 [facility] [place] [facility] [address] [id number] [place] [address]- 1468 Apr, [facility] [place] [facility] [address] [id number] [place] [address]- 3404 Apr, [facility] [place] [facility] [address] [id number] [place] [address]- 7228 March, [facility] [place] [facility] [address] [id number] [place] [address]- 7526 March, [facility] [place] [facility] [address] [id number] [place] [address]- 4125 March, [facility] [place] [facility] [address] [id number] [place] [address]- 6602 March, [facility] [place] [facility] [address] [id number] [place] [address]- 7540 March, [facility] [address] [id number] [place] [address]- 3034 Feb, [facility] [place] [facility] [address] [id number] [place] [address]- 7104 Feb, [facility] [address] [id number] [place] [address]- 9646 Jan, [facility] [place] [facility] [address] [id number] [place] [address]- 5489 Jan, [facility] [address] [id number] [place] [address]- 3948 Jan, [facility] [address] [id number] [place] [address]- 2538 Jan, [facility] [address] [id number] [place] [address]- 5149 Jan, [facility] [address] [id number] [place] [address]- 2157 Dec, [facility] [address] [id number] [place] [address]- 0992 Dec, [facility] [address] [id number] [place] [address]- 6934 Nov, [facility] [place] [facility] [address] [id number], [place] [address]- 2853 Nov, [facility] [place] [facility] [address] [id number], [place] [address]- 9929 18 Nov, 2012 [facility] [place] [facility] [address] [id number] [place] [address]- 7945 16 Nov, 2012 [facility] [place] [facility] [address] [id number], [place] [address]- 7698 15 Nov, 2012 [facility] [place] [facility] [address] [id number] [place] [address]- 8215 14 Nov, 2012 [facility] [place] [facility] [address] [id number] [place] [address]- 8485 14 Nov, 2012 [facility] [address] [id number] [place] [address]- 0783 Nov, [facility] [place] [facility] [address] [id number] [place] [address]- 6630 Nov, [facility] [address] [id number] [place] [address]- 1243 Nov, [facility] [place] [facility] [address] [id number] [place] [address]- 4898 Nov, [facility] [place] [facility] [address] [id number] [place] [address]- 6859 Oct, [facility] [place] [facility] [address] [id number] [place] [address]- 1520 Oct, [facility] [address] [id number] [place] [address]- 1276 Sep, [facility] [place] [facility] [address] [id number] [place] [address]- 8830 Sep, [facility] [place] [facility] [address] [id number] [place] [address]- 7321 Sep, [facility] [place] [facility] [address] [facility] [id number] [place] [address]- 6596 Sep, [facility] [place] [facility] [address] [id number] [place] [address]- 5623 Sep, [facility] [place] [facility] [address] [id number] [place] [address]- 2033 Sep, [facility] [place] [facility] [address] [id number] [place] [address]- 5890 Sep, [facility] [place] [facility] [address] [id number] [place] [address]- 7535 Sep, [facility] [place] [facility] [address] [id number] [place] [address]- 5351 Sep, [facility] [place] [facility] [address] [id number] [place] [address]- 9693 Sep, [facility] [place] [facility] [address] [id number] [place] [address]- 9322 Sep, [facility] [place] [facility] [address] [id number] [place] [address]- 3632 Sep, [facility] [place] [facility] [id number] [place] [address], [place] [address]- 7622 Sep, [facility] [place] [facility] [address] [id number] [place] [address]- 9614 Sep, [facility] [place] [facility] [address] [id number] [place] [address]- 3522 Aug, [facility] [place] [facility] [address] [id number] [place] [address]- 1940 Aug, [facility] [place] [facility] [address] [id number] [place] [address]- 1379 Aug, [facility] [place] [facility] [address] [id number] [place] [address]- 2762 Aug, [facility] [place] [facility] [address] [id number] [place] [address]- 6006 Aug, [facility] [place] [facility] [address] [id number] [place] [address]- 9721 Aug, [facility] [place] [facility] [address] [id number], [place] [address]- 5972 Aug, [facility] [place] [facility] [address] [id number] [place] [address]- 2168 Aug, [facility] [place] [facility] [address] [id number] [place] [address]- 8007 Aug, [facility] [place] [facility] [address] [id number] [place] [address]- 4259 Aug, [facility] [place] [facility] [address] [id number], [place] [address]- 2388 Aug, [facility] [id number], [place] [address]- 4685 Aug, [facility] [id number], [place] [address]- 0266 Aug, [facility] [id number], [place] [address]- 4350 Aug, [facility] [address] [facility] [id number][place] 1159 Aug, [facility] [id number] 8020 Aug, [facility] [id number] [place] [id number] Aug, [facility] [id number] [address] Jul, [facility] [id number] [address] Jun, [facility] [id number] [address] Aug, [facility] [id number] [address] Aug, [facility] [id number] [address] Aug, IMMUNIZATIONS No Known Immunizations SOCIAL HISTORY Never Assessed REASON FOR VISIT MTM (Medication Therapy Management) PLAN OF CARE VITAL SIGNS MEDICATIONS Medication Instructions Dosage Frequency Start Date End Date Duration Status Protonix 40 mg Orally Once a day 1 tablet 24h Jan, 30 day(s) Active RESULTS No Results PROCEDURES No Known [...] surgery 08/16/2016 Hospitalization History Chest pain, CAD, HTN-[facility] 05/14/17 Hospitalization History chest pain, edema-[facility] 05/04/18
--- OUTSIDE RECORDS SUMMARY | 2018-09-08 15:19 | XMS REPORT ---
Author Author PIPPA DIMAS [facility] Address [address] [place] [address] Care Team Providers Care Engraver Letter Name Role Phone MADDIEArjun PIPPA Unavailable PROBLEMS Type Condition ICD9-CM Code GSB61-AD Code Onset Dates Condition Status SNOMED Code Problem Mixed hyperlipidemia E78.2 Active 851300067 Problem Stasis dermatitis without varicosities I87.2 Active 01318140 Problem Edema of both legs R60.0 Active 982170312 Problem Morbid (severe) obesity due to excess calories E66.01 Active 229562031 Problem Chronic pain syndrome G89.4 Active 375469773 Problem Dependence on supplemental oxygen Z99.81 Active 059153206837 Problem 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 Active 38848191 Problem Gastroesophageal reflux disease without esophagitis K21.9 Active 052690450 Problem Urge incontinence of urine N39.41 Active 72920386 Problem Restless legs syndrome G25.81 Active 346142447 Problem Essential hypertension I10 Active 10715517 Problem Chronic stasis dermatitis I83.10 Active 59147748 Problem Renal insufficiency N28.9 Active 933056312 Problem Acquired hypothyroidism E03.9 Active 295397251 Problem Lymphedema I89.0 Active 229299710 Problem Lumbar pain M54.5 Active 704945574 Problem Nocturnal hypoxia G47.34 Active 418940093 ALLERGIES No Information ENCOUNTERS Encounter Location Date Diagnosis [facility] [address] [facility] [id number], [place] [address] Apr, [facility] [address], [place] [address] 268[address] March, [facility] [address] [id number], [place] [address] 2073 Feb, [facility] [address] [id number], [place] [address] 9913 Jan, [facility] [address], [place] [address] 4131 Jan, [facility] [id number] [place] [address] 06217- 8908 Jan, Acquired hypothyroidism E03.9 ; Morbid (severe) obesity due to excess calories E66.01 ; Body mass index (BMI) 70 or greater, adult Z68.45 ; Cellulitis of left anterior lower leg L03.116 ; Restless legs syndrome G25.81 ; Nocturnal hypoxia G47.34 and Dependence on supplemental oxygen Z99.81 [facility] [id number] [place] [address] 41808- 2372 Jan, [facility] [id number] [place] [address] 13003- 2848 Dec, [facility] [id number] [place] [address] 39555- 3929 15 Oct, 2017 [facility] [id number] [place] [address] 65388- 0333 07 Oct, 2017 [facility] [id number] [place] [address] 37846- 0258 Sep, [facility] [id number] [place] [address] 45260- 8598 16 Sep, 2017 [facility] [id number] [place] [address] 86596- 7292 16 Sep, 2017 Dental examination Z01.20 [facility] [address] [id number], [place] [address]- 6378 Sep, Morbid obesity due to excess calories E66.01 ; Body mass index (BMI) of 70 or greater in adult Z68.45 ; Stasis dermatitis without varicosities I87.2 ; Lymphedema I89.0 ; Renal insufficiency N28.9 ; Acquired hypothyroidism E03.9 ; Cellulitis L03.90 ; Bronchitis J40 and BMI 40.0-44.9, adult Z68.41 [facility] [address] [facility] [id number], [place] [address] Aug, [facility] [address] [id number] Aug, Dental examination Z01.20 [facility] [address], [place] [address] 3039 Aug, [facility] [id number] [place] [address] 15452- 1631 Jul, [facility] [id number] [place] [address] 70216- 7772 Jul, [facility] [id number] [place] [address] 96185- 4621 18 Jul, 2017 [facility] [id number] [place] [address] 90091- 0122 Jul, [facility] [id number] [place] [address] 18578- 1181 Jul, [facility] [id number] [place] [address] 60126- 2562 Jun, [facility] [id number] [place] [address] 64836- 6930 Jun, Dependence on nocturnal oxygen therapy Z99.81 ; Morbid obesity due to excess calories E66.01 and Bronchitis J40 [facility] [address] [place] [address] 80804- 3379 Jun, Restless legs syndrome G25.81 [facility] [address], [place] [address]- 4258 Jun, [facility] [id number] [place] [address] 04739- 6016 May, [facility] [id number] [place] [address] [id number] Apr, [facility] [id number] [place] [address] 17460- 9248 Apr, [facility] [address], [place] [address]- 1869 Apr, Essential hypertension I10 [place] [address] [place] [address] 05111- 6906 Apr, [place] [address] [place] [address] 74213- 4423 Apr, Chronic pain syndrome G89.4 and Urge incontinence of urine N39.41 [place] [address] [place] [address] 06333- 5465 March, Acquired hypothyroidism E03.9 [place] [id number] [place] [address] 78574- 2281 March, [place] [id number] [place] [address] 97310- 5706 March, [place] [id number] [place] [address] 25753- 5806 March, Chronic pain syndrome G89.4 ; Essential [...] extremity L03.116 and Screening breast examination Z12.39 [place] [address], [place] [address]- 4679 March, [place] [address] [place] [address] 29313- 9749 Feb, [place] [id number] [place] [address] 81788- 7165 Feb, [place] [address], [place] [address]- 6827 Feb, Chronic pain syndrome G89.4 [facility] [address], [place] [address] Feb, Right foot pain M79.671 and Right foot sprain, initial encounter S93.601A [facility] [address] [id number], [place] [address]- 3984 Jan, [facility] [id number] [place] [address] 93073- 5800 Jan, [facility] [id number] [place] [address] 97795- 9856 Jan, Chronic pain syndrome G89.4 [facility] [id number] [place] [address] 79620- 9749 Jan, [facility] [id number] [place] [address] 07416- 2276 Dec, [facility] [id number] [place] [address] 64812- 6700 Dec, [facility] [id number] [place] [address] 05586- 0952 Dec, Pain in right knee M25.561 ; [...] Urge incontinence of urine N39.41 [facility] [address], [place] [address]- 6165 Nov, Mixed hyperlipidemia E78.2 [facility] [id number] [place] [address] 78831- 0289 Nov, [facility] [address], [place] [address]- 1220 Nov, [facility] [address] [place] [address]- 5423 Nov, [facility] [address] [id number], [place] [address]9878 Nov, Stasis ulcer, left I83.029 [facility] [address] [facility] [id number] [place] [address]- 4988 Nov, [facility] [address], [place] [address]- 8797 Oct, [facility] [address] [id number] [place] [address]- 0216 Oct, [facility] [address] [place] [address]- 0465 Oct, [facility] [address] [place] [address]- 8792 Sep, [facility] [address], [place] [address]- 1497 Sep, [facility] [address] [facility] [id number] [id number] Sep, [facility] [address], [place] [address]- 2635 Aug, [facility] [id number], [place] [address]- 3133 Jul, [facility] [id number], [place] [address]- 4776 Jul, [facility] [id number], [place] [address]- 9301 Jul, [facility] [address], [place] [address]- 6698 Jul, [facility] [id number], [place] [address]- 8131 14 Jul, 2016 Chest pain, unspecified type R07.9 ; Dyspnea on exertion R06.09 ; Essential hypertension I10 ; Hyperlipidemia, unspecified hyperlipidemia type E78.5 ; Left bundle branch block I44.7 and Hypothyroidism, unspecified type E03.9 [facility] [address] [address] Jun, Fever, unspecified fever cause R50.9 ; Headache, unspecified headache type R51 ; SOB (shortness of breath) R06.02 and Strep pharyngitis J02.0 [facility] [address] 98385- 8194 Jun, [facility] [address] 52836- 2960 Jun, [place] [address] 20107- 7744 Jun, Essential hypertension I10 ; Mixed hyperlipidemia E78.2 and Acquired hypothyroidism E03.9 [facility] [address] 79862- 6572 Jun, Edema of both legs R60.0 ; Hypoxia R09.02 and Essential hypertension I10 [place] [address] 21764- 9696 Jun, [facility] [address] 39784- 5298 Jun, Edema of both legs R60.0 ; Hypoxia R09.02 and Essential hypertension I10 [place] [address] 61027- 3571 Jun, Essential hypertension I10 ; Dependence on supplemental oxygen Z99.81 and Edema of both legs R60.0 [place] [address] 84073- 3427 May, Lumbar pain M54.5 ; Essential hypertension I10 ; Edema of both legs R60.0 ; Stasis dermatitis without varicosities I87.2 and Left knee pain M25.562 [place] [address] 25026- 5893 May, [facility] [address], [place] [address]- 8357 May, [facility] [address], [place] [address]- 3835 May, [facility] [address], [place] [address]- 4370 Apr, [facility] [id number] [place] [address] 94163- 8826 Apr, [facility] [address], [place] [address]- 7121 March, [facility] [address] [place] [address] 96320- 2514 March, Lymphedema I89.0 ; Morbid obesity due to excess calories E66.01 ; Alteration in mobility due to weakness R53.1 and Hypoxia R09.02 [facility] [address], [place] [address]- 1151 March, Abdominal wall mass R19.00 [facility] [address], [place] [address]- 9639 March, [facility] [address], [place] [address]- 6549 March, Abdominal wall mass R19.00 ; Lower abdominal pain R10.30 ; Alteration in mobility due to weakness R53.1 ; Hypoxia R09.02 and Lymphedema I89.0 [facility] [address], [place] [address]- 4753 Feb, [facility] [address], [place] [address]- 2444 Feb, Acquired hypothyroidism E03.9 ; Dependence on machine for supplemental oxygen V46.2 ; Restless legs syndrome G25.81 ; Essential hypertension I10 ; Renal insufficiency N28.9 ; Chronic stasis dermatitis I83.10 ; Mixed hyperlipidemia E78.2 ; Other chronic pain 338.29 and Cellulitis of left lower extremity L03.116 [place] [id number] [place] [address] 47267- 5627 Feb, [place] [id number] [place] [address] 48370- 4680 Feb, [facility] [id number] [place] [address] 04879 -8799 Feb, Shortness of breath R06.02 and Bronchitis J40 [place] [id number] [place] [address] 28828- 0787 Jan, Dependence on supplemental oxygen Z99.81 [place] [address] 72961- 5179 Jan, [place] [address] 09813- 2421 Dec, [place] [address] 36889- 9454 Dec, [place] [id number] [place] [address] 17542- 4293 Nov, Osteoarthritis of knees, bilateral M17.0 [place] [id number] [place] [address] 96536- 3185 Nov, Dependence on machine for supplemental oxygen V46.2 ; Nocturnal hypoxia G47.34 and Urgency of urination R39.15 [place] [id number] [place] [address] 99376- 5758 Nov, [place] [id number] [place] [address] 66136- 3637 Oct, Pain in right knee M25.561 and Pain in left knee M25.562 [place] [id number] [place] [address] 36896- 0024 Oct, Acquired hypothyroidism E03.9 ; Renal insufficiency N28.9 and Chronic stasis dermatitis I83.10 [place] [id number] [place] [address] 38915- 6326 Oct, [place] [address] 83150- 6931 Sep, Cellulitis L03.90 ; Left knee pain M25.562 ; Essential hypertension I10 ; Lymphedema I89.0 ; Lumbar pain M54.5 ; Morbid obesity due to excess calories E66.01 and Renal insufficiency N28.9 [place] [address] 61641- 2918 Sep, Cellulitis L03.90 and Lymphedema I89.0 [place] [address] 94632- 3247 Sep, [place] [address] 49022- 3400 Sep, [place] [address] 80697- 7781 Sep, Left knee pain M25.562 ; Lumbar pain M54.5 ; Restless legs syndrome G25.81 ; Acquired hypothyroidism E03.9 and Essential hypertension I10 [place] [id number] [place] [address] 01378- 4095 Jul, [place] [id number] [place] [address] 09070- 3785 Jun, [place] [id number] [place] [address] 20684- 2649 May, [place] [id number] [place] [address] 77719- 8080 May, [place] [id number] [place] [address] 52281- 1984 May, Hypertension 997.91 ; Restless legs syndrome [RLS] 333.94 ; Unspecified venous (peripheral) insufficiency 459.81 ; Unspecified hypothyroidism 244.9 and Other chronic pain 338.29 [place] [id number] 6863 Apr, [facility] [address] [place] [address] 07198- 9872 Apr, [facility] [id number], [place] [address]- 3397 Apr, Restless legs syndrome [RLS] 333.94 ; Shortness of breath 786.05 ; Unspecified venous (peripheral) insufficiency 459.81 ; Unspecified hypothyroidism 244.9 ; Obesity, unspecified 278.00 ; Other chronic pain 338.29 ; Hypertension 997.91 and Hyperlipidemia 272.4 [facility] [id number] [place] [address] 40233- 9700 Feb, [facility] [id number] [place] [address] 76610- 1404 Feb, [facility] [id number] [place] [address] 31879- 7991 Jan, [facility] [address] [id number], [place] [address]- 6304 30 Jan, 2015 [facility] [id number] [place] [address] 93917- 1687 Jan, [facility] [address], [place] [address]- 4476 Jan, [facility] [address] [place] [address] 24849- 9727 Jan, [facility] [address], [place] [address]- 1740 Jan, [facility] [id number] [place] [address] 258086- 1548 Jan, [facility] [id number] [address] 7367 Jan, [facility] [address] [place] [address] 842206- 9298 Jan, [facility] [place] [facility] [address] [id number] [place] [address]- 2353 Jan, [facility] [place] [facility] [address] [id number] [place] [address]- 5541 Jan, [facility] [place] [facility] [address] [id number] [place] [address]- 5368 Jan, [facility] [place] [facility] [address] [id number] [place] [address]- 5408 Jan, [facility] [place] [facility] [address] [id number] [place] [address]- 0278 Jan, [facility] [place] [facility] [address] [id number] [place] [address]- 7948 Dec, [facility] [place] [facility] [address] [id number] [place] [address]- 0745 Dec, [facility] [place] [facility] [address] [id number] [place] [address]- 3601 Nov, [facility] [place] [facility] [address] [id number] [place] [address]- 1000 Nov, [facility] [place] [facility] [address] [id number] [place] [address]- 1774 Nov, [facility] [place] [facility] [address] [id number] [place] [address]- 3345 Nov, [facility] [place] [facility] [address] [id number], [place] [address]- 0043 Nov, [facility] [place] [facility] [address] [id number] [place] [address]- 8591 Nov, [facility] [place] [facility] [address] [id number] [place] [address]- 7079 Nov, [facility] [place] [facility] [address] [id number] [place] [address]- 2066 Nov, [facility] [place] [facility] [address] [id number], [place] [address]- 7250 Nov, [facility] [place] [facility] [address] [id number] [place] [address]- 1482 Nov, [facility] [place] [facility] [address] [id number], [place] [address]- 4192 Nov, [facility] [place] [facility] [address] [facility] [id number] [place] [address]- 7347 Nov, [facility] [place] [facility] [address] [id number] [place] [address]- 1939 Nov, [facility] [place] [facility] [address] [id number] [place] [address]- 1243 Nov, [facility] [place] [facility] [address] [id number] [place] [address]- 6253 Nov, [facility] [place] [facility] [address] [facility] [id number], [place] [address]- 5026 Nov, [facility] [place] [facility] [address] [id number], [place] [address]- 6732 Oct, [facility] [place] [facility] [address] [id number] [place] [address]- 8596 Oct, [facility] [place] [facility] [address] [facility] [id number], [place] [address]- 3397 Sep, [facility] [place] [facility] [address] [id number], [place] [address]- 7535 Aug, [facility] [place] [facility] [address] [id number], [place] [address]- 7057 Aug, [facility] [place] [facility] [address] [id number], [place] [address]- 5261 Aug, [facility] [place] [facility] [address] [facility] [id number], [place] [address]- 0536 Aug, [facility] [place] [facility] [address] [facility] [id number], [place] [address]- 9624 Aug, [facility] [place] [facility] [address] [id number] [place] [address]- 5583 Aug, [facility] [place] [facility] [address] [id number] [place] [address]- 8330 Aug, [facility] [place] [facility] [address] [id number] [place] [address]- 5503 Aug, [facility] [place] [facility] [address] [id number] [place] [address]- 7909 Aug, [facility] [place] [facility] [address] [id number] [place] [address]- 1229 Aug, [facility] [place] [facility] [address] [id number] [place] [address]- 9950 Jun, [facility] [place] [facility] [address] [id number] [place] [address]- 3991 Jun, [facility] [place] [facility] [address] [id number] [place] [address]- 8758 Jun, [facility] [place] [facility] [address] [id number] [place] [address]- 9608 Jun, [facility] [place] [facility] [address] [id number] [place] [address]- [address] Jun, [facility] [place] [facility] [address] [id number] [place] [address] Jun, [facility] [place] [facility] [address] [id number] [place] [address] Jun, [facility] [place] [facility] [address] [id number] [place] [address] Jun, [facility] [place] [facility] [address] [id number] [place] [address] Jun, [facility] [place] [facility] [address] [id number] [place] [address] Jun, [facility] [place] [facility] [address] [id number] [place] [address] May, [facility] [place] [facility] [address] [id number] [place] [address] May, [facility] [place] [facility] [address] [id number] [place] [address] May, [facility] [place] [facility] [address] [id number] [place] [address] May, [facility] [place] [facility] [address] [id number] [place] [address] May, [facility] [place] [facility] [address] [id number] [place] [address] May, [facility] [place] [facility] [address] [id number] [place] [address] May, [facility] [place] [facility] [address] [id number] [place] [address]- [address] May, [facility] [place] [facility] [address] [id number] [place] [address] May, [facility] [place] [facility] [address] [id number] [place] [address] May, [facility] [place] [facility] [address] [id number] [place] [address] May, [facility] [place] [facility] [address] [id number] [place] [address]- [address] May, [facility] [place] [facility] [address] [id number] [place] [address]- [address] May, [facility] [place] [facility] [address] [id number] [place] [address] May, [facility] [place] [facility] [address] [id number] [place] [address]- [address] May, [facility] [place] [facility] [address] [id number] [place] [address]- [address] May, 2013 [facility] [place] [facility] [address] [id number] [place] [address]- [address] May, [facility] [place] [facility] [address] [id number] [place] [address]- [address] May, [facility] [place] [facility] [address] [id number] [place] [address] Apr, [facility] [place] [facility] [address] [id number] [place] [address]- 2015 Apr, [facility] [place] [facility] [address] [id number] [place] [address] Apr, [facility] [place] [facility] [address] [id number] [place] [address] Apr, [facility] [place] [facility] [address] [id number] [place] [address] Apr, [facility] [place] [facility] [address] [id number] [place] [address] Apr, [facility] [place] [facility] [address] [id number] [place] [address] Apr, [facility] [place] [facility] [address] [id number] [place] [address] Apr, [facility] [place] [facility] [address] [id number] [place] [address] Apr, [facility] [place] [facility] [address] [id number] [place] [address] Apr, [facility] [place] [facility] [address] [id number] [place] [address] Apr, [facility] [place] [facility] [address] [id number] [place] [address] Apr, [facility] [place] [facility] [address] [id number] [place] [address] March, [facility] [place] [facility] [address] [id number] [place] [address] March, [facility] [place] [facility] [address] [id number] [place] [address] 9420 March, [facility] [place] [facility] [address] [id number] [place] [address] March, [facility] [place] [facility] [address] [id number] [place] [address] March, [facility] [place] [facility] [address] [id number] [place] [address] 3327 March, [facility] [address] [id number] [place] [address] March, [facility] [place] [facility] [address] [id number] [place] [address] 9709 March, [facility] [address] [id number] [place] [address] 76[address] March, [facility] [place] [facility] [address] [id number] [place] [address] 40[address] March, [facility] [place] [facility] [address] [id number] [place] [address] 3995 March, [facility] [place] [facility] [address] [id number] [place] [address] 1412 Feb, [facility] [place] [facility] [address] [id number] [place] [address]- 6313 Feb, [facility] [place] [facility] [address] [id number] [place] [address] 7125 Feb, [facility] [place] [facility] [address] [id number] [place] [address]- 9328 Feb, [facility] [place] [facility] [address] [id number] [place] [address]- 0358 Feb, [facility] [place] [facility] [address] [id number] [place] [address]- 8623 Feb, [facility] [place] [facility] [address] [id number] [place] [address]- 9879 Feb, [facility] [place] [facility] [address] [id number] [place] [address]- 2942 Feb, [facility] [place] [facility] [address] [id number] [place] [address]- 5576 Feb, [facility] [place] [facility] [address] [id number] [place] [address]- 7174 Feb, [facility] [place] [facility] [address] [id number] [place] [address]- 7779 Feb, [facility] [place] [facility] [address] [id number] [place] [address]- 6230 Feb, [facility] [place] [facility] [address] [id number] [place] [address]- 1767 Feb, [facility] [place] [facility] [address] [id number] [place] [address]- 0860 Feb, [facility] [place] [facility] [address] [id number] [place] [address]- 2501 Feb, [facility] [place] [facility] [address] [id number] [place] [address]- 2080 Feb, [facility] [place] [facility] [address] [id number] [place] [address]- 1469 Feb, [facility] [place] [facility] [address] [id number] [place] [address]- 7194 Feb, [facility] [place] [facility] [address] [id number] [place] [address]- 5662 Feb, [facility] [place] [facility] [address] [id number] [place] [address]- 5708 Feb, [facility] [place] [facility] [address] [id number] [place] [address]- 7774 Jan, [facility] [place] [facility] [address] [id number] [place] [address]- 7472 Jan, [facility] [place] [facility] [address] [id number] [place] [address]- 8835 25 Jan, 2014 [facility] [place] [facility] [address] [id number] [place] [address]- 3026 Jan, [facility] [place] [facility] [address] [id number] [place] [address]- 2122 Jan, [facility] [place] [facility] [address] [id number] [place] [address]- 4304 Jan, [facility] [place] [facility] [address] [id number] [place] [address]- 7653 18 Jan, 2014 [facility] [place] [facility] [address] [id number] [place] [address]- 2046 18 Jan, 2014 [facility] [place] [facility] [address] [id number] [place] [address]- 0868 Jan, [facility] [place] [facility] [address] [id number] [place] [address]- 8909 14 Jan, 2014 [facility] [place] [facility] [address] [id number] [place] [address]- 0953 Jan, [facility] [place] [facility] [address] [id number] [place] [address]- 8517 Jan, [facility] [place] [facility] [address] [id number] [place] [address]- 7755 Jan, [facility] [place] [facility] [address] [id number] [place] [address]- 0193 Jan, [facility] [place] [facility] [address] [id number] [place] [address]- 1550 Dec, [facility] [place] [facility] [address] [id number] [place] [address]- 7194 Dec, [facility] [place] [facility] [address] [id number] [place] [address]- 4713 Dec, [facility] [place] [facility] [address] [id number] [place] [address]- 6990 Dec, [facility] [place] [facility] [address] [id number] [place] [address]- 2182 Dec, [facility] [place] [facility] [address] [id number] [place] [address]- 0386 Dec, [facility] [place] [facility] [address] [id number] [place] [address]- 4716 Dec, [facility] [place] [facility] [address] [id number] [place] [address]- 1778 Dec, [facility] [place] [facility] [address] [id number] [place] [address]- 6456 Dec, [facility] [place] [facility] [address] [id number] [place] [address]- 2054 Nov, [facility] [place] [facility] [address] [id number] [place] [address]- 2177 Nov, [facility] [place] [facility] [address] [id number] [place] [address]- 4998 Nov, [facility] [place] [facility] [address] [id number] [place] [address]- 7165 Nov, [facility] [place] [facility] [address] [id number] [place] [address]- 9697 Oct, [facility] [place] [facility] [address] [id number] [place] [address]- 0693 Oct, [facility] [place] [facility] [address] [id number] [place] [address]- 1750 Oct, [facility] [place] [facility] [address] [id number] [place] [address]- 6499 Oct, [facility] [place] [facility] [address] [id number] [place] [address]- 7929 Oct, [facility] [place] [facility] [address] [id number] [place] [address]- 0970 Oct, [facility] [place] [facility] [address] [id number] [place] [address]- 6671 23 Oct, 2012 [facility] [address] [id number] [place] [address]- 7686 23 Oct, 2013 [facility] [address] [id number] [place] [address] 20 Oct, 2013 [facility] [address] [id number] [place] [address]- 9996 19 Oct, 2012 [facility] [address] [id number] [place] [address]- 7379 19 Oct, 2013 [facility] [address] [id number] [place] [address]23 18 Oct, 2013 [facility] [address] [id number] [place] [address]- 5916 18 Oct, 2013 [facility] [address] [id number] [place] [address]- 8296 17 Oct, 2013 [facility] [address] [id number] [place] [address]- 4567 17 Oct, 2013 [facility] [address] [id number] [place] [address]- 5550 17 Oct, 2013 [facility] [address] [id number] [place] [address]- 6892 17 Oct, 2013 [facility] [address] [id number] [place] [address]- 9949 17 Oct, 2013 [facility] [address] [id number] [place] [address]- 5401 17 Oct, 2013 [facility] [address] [id number] [place] [address]- 1949 11 Oct, 2013 [facility] [address] [id number] [place] [address]- 1526 11 Oct, 2013 [facility] [address] [id number] [place] [address]- 4630 Sep, [facility] [place] [facility] [address] [id number] [place] [address]- 5862 Sep, [facility] [place] [facility] [address] [id number] [place] [address]- 1024 Sep, [facility] [place] [facility] [address] [id number] [place] [address]- 7235 Sep, [facility] [place] [facility] [address] [id number] [place] [address]- 1254 Sep, [facility] [place] [facility] [address] [id number] [place] [address]- 4494 Sep, [facility] [place] [facility] [address] [id number] [place] [address]- 5755 Sep, [facility] [place] [facility] [address] [id number] [place] [address]- 8077 Sep, [facility] [place] [facility] [address] [id number] [place] [address]- 6555 Sep, [facility] [place] [facility] [address] [id number] [place] [address]- 4976 Sep, [facility] [place] [facility] [address] [id number], [place] [address]- 7482 Sep, [facility] [place] [facility] [address] [id number], [place] [address]- 7255 Sep, [facility] [place] [facility] [address] [id number], [place] [address]- 1459 Aug, [facility] [place] [facility] [address] [id number] [place] [address]- 6757 Aug, [facility] [place] [facility] [address] [id number] [place] [address]- 8958 Aug, [facility] [place] [facility] [address] [id number] [place] [address]- 4506 Aug, [facility] [place] [facility] [address] [id number] [place] [address]- 0187 Aug, 2012 [facility] [place] [facility] [address] [id number] [place] [address]- 9852 23 Aug, 2012 [facility] [place] [facility] [address] [id number] [place] [address]- 1854 Aug, 2012 [facility] [place] [facility] [address] [id number] [place] [address]- 8619 Aug, 2012 [facility] [place] [facility] [address] [id number] [place] [address]- 8165 16 Aug, 2012 [facility] [place] [facility] [address] [id number] [place] [address]- 4425 16 Aug, 2012 [facility] [place] [facility] [address] [id number] [place] [address]- 1422 10 Aug, 2012 [facility] [place] [facility] [address] [id number] [place] [address]- 8843 10 Aug, 2012 [facility] [place] [facility] [address] [id number] [place] [address]- 1255 08 Aug, 2013 [facility] [place] [facility] [address] [id number] [place] [address]- 2618 07 Aug, 2012 [facility] [place] [facility] [address] [id number] [place] [address]- 8946 04 Aug, 2013 [facility] [place] [facility] [address] [id number] [place] [address]- 2048 Aug, [facility] [place] [facility] [address] [id number], [place] [address]- 2925 Aug, [facility] [place] [facility] [address] [id number] [place] [address]- 7698 16 Jul, 2013 [facility] [place] [facility] [address] [id number] [place] [address]- 6833 Jun, [facility] [place] [facility] [address] [id number] [place] [address]- 4901 Jun, [facility] [place] [facility] [address] [id number] [place] [address]- 7541 May, [facility] [place] [facility] [address] [id number] [place] [address]- 1296 May, [facility] [place] [facility] [address] [id number] [place] [address]- 1949 Apr, [facility] [place] [facility] [address] [id number] [place] [address]- 0081 Apr, [facility] [place] [facility] [address] [id number] [place] [address]- 9255 Apr, [facility] [place] [facility] [address] [id number] [place] [address]- 2498 Apr, [facility] [place] [facility] [address] [id number] [place] [address]- 1322 Apr, [facility] [place] [facility] [address] [id number] [place] [address]- 5277 Apr, [facility] [place] [facility] [address] [id number] [place] [address]- 1738 Apr, [facility] [place] [facility] [address] [id number] [place] [address]- 5373 Apr, [facility] [place] [facility] [address] [id number] [place] [address]- 9516 Apr, [facility] [place] [facility] [address] [id number] [place] [address]- 1211 Apr, [facility] [place] [facility] [address] [id number] [place] [address]- 2457 Apr, [facility] [place] [facility] [address] [id number] [place] [address]- 8059 March, [facility] [place] [facility] [address] [id number] [place] [address]- 7116 March, [facility] [place] [facility] [address] [id number] [place] [address]- 0100 March, [facility] [address] [id number] [place] [address]- 4422 March, [facility] [address] [id number] [place] [address]- 3366 March, [facility] [address] [id number] [place] [address]- 7601 Feb, [facility] [address] [id number] [place] [address]- 8558 Feb, [facility] [address] [id number] [place] [address]- 4964 Jan, [facility] [address] [id number] [place] [address]- 8989 Jan, [facility] [address] [id number] [place] [address]- 1044 Jan, [facility] [address] [id number] [place] [address]- 1018 Jan, [facility] [address] [id number] [place] [address]- 9700 Jan, [facility] [address] [id number] [place] [address]- 5658 Dec, [facility] [address] [id number], [place] [address]- 4046 Dec, [facility] [place] [facility] [address] [id number], [place] [address]- 7632 Nov, [facility] [place] [facility] [address] [id number] [place] [address]- 3566 Nov, [facility] [place] [facility] [address] [id number] [place] [address]- 6545 Nov, [facility] [place] [facility] [address] [id number] [place] [address]- 1886 Nov, [facility] [place] [facility] [address] [id number] [place] [address]- 6166 15 Nov, 2012 [facility] [address] [id number] [place] [address]- 7844 14 Nov, 2012 [facility] [address] [id number] [place] [address]- 4734 14 Nov, 2012 [facility] [address] [id number] [place] [address]- 2848 11 Nov, 2012 [facility] [address] [id number] [place] [address]- 9533 Nov, [facility] [address] [id number] [place] [address]- 1777 Nov, [facility] [address] [id number] [place] [address]- 2643 Nov, [facility] [address] [id number] [place] [address]- 4155 Oct, [facility] [address] [id number] [place] [address]- 1296 Oct, [facility] [address] [id number] [place] [address]- 3389 Sep, [facility] [address] [id number] [place] [address]- 6349 Sep, [facility] [address] [id number] [place] [address]- 7973 Sep, [facility] [address] [id number] [place] [address]- 0290 Sep, [facility] [address] [id number] [place] [address]- 2269 Sep, [facility] [address] [id number] [place] [address]- 2766 Sep, [facility] [address] [id number] [place] [address]- 4572 Sep, [facility] [place] [facility] [address] [id number] [place] [address]- 4969 Sep, [facility] [place] [facility] [address] [id number] [place] [address]- 8575 Sep, [facility] [place] [facility] [address] [id number] [place] [address]- 9199 Sep, [facility] [place] [facility] [address] [id number] [place] [address]- 8167 Sep, [facility] [place] [facility] [address] [id number] [place] [address]- 5643 Sep, [facility] [place] [facility] [address] [id number] [place] [address]- 6809 Sep, [facility] [place] [facility] [address] [facility] [id number] [place] [address]- 9432 Sep, [facility] [place] [facility] [address] [id number], [place] [address]- 6889 Aug, [facility] [place] [facility] [address] [facility] [id number], [place] [address]- 9071 Aug, [facility] [place] [facility] [address] [facility] [id number], [place] [address]- 5969 Aug, [facility] [place] [facility] [address] [facility] [id number], [place] [address]- 1686 Aug, [facility] [place] [facility] [address] [id number], [place] [address]- 4505 Aug, [facility] [place] [facility] [address] [facility] [id number], [place] [address]- 9323 Aug, [facility] [place] [facility] [address] [facility] [id number], [place] [address]- 6975 Aug, [facility] [place] [facility] [address] [facility] [id number], [place] [address]- 0589 Aug, [facility] [place] [facility] [address] [id number], [place] [address]- 7292 Aug, [facility] [id number], [place] [address]- 9335 Aug, [facility] [id number], [place] [address]- 9853 Aug, [facility] [id number], [place] [address]- 9615 Aug, [facility] [id number] [place] [address] 27938- 3724 Aug, [facility] [id number] [place] [address] 25459- 3554 Aug, [facility] [id number] [place] [address] 361288- 5443 Aug, [facility] [id number] [place] [address] 94822- 6753 Aug, [facility] [id number], [place] [address]- 6835 Aug, [facility] [id number] [place] [address] 674[address]- 2708 Jul, [facility] [id number], [place] [address]- 0465 Jun, [facility] [id number], [place] [address]- 3832 Aug, [facility] [id number], [place] [address]- 7147 Aug, [facility] [id number], [place] [address]- 1533 Aug, IMMUNIZATIONS No Known Immunizations SOCIAL HISTORY [...]
--- OUTSIDE RECORDS SUMMARY | 2018-09-08 15:21 | XMS REPORT ---
Author Author ANUJ LANCASTER [facility] Address [address] [place] [address] Phone Unavailable Care Team Providers Care Instructor Nurse Name Role Phone ANUJ LANCASTER Unavailable Unavailable PROBLEMS Type Condition ICD9-CM Code ELY79-JB Code Onset Dates Condition Status SNOMED Code Problem Mixed hyperlipidemia E78.2 Active 769251021 Problem Stasis dermatitis without varicosities I87.2 Active 64288233 Problem Edema of both legs R60.0 Active 440013630 Problem Morbid (severe) obesity due to excess calories E66.01 Active 139369010 Problem Chronic pain syndrome G89.4 Active 000437960 Problem Dependence on supplemental oxygen Z99.81 Active 607683880727 Problem 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 Active 49319081 Problem Gastroesophageal reflux disease without esophagitis K21.9 Active 178698097 Problem Urge incontinence of urine N39.41 Active 53702289 Problem Restless legs syndrome G25.81 Active 820901863 Problem Essential hypertension I10 Active 60549077 Problem Chronic stasis dermatitis I83.10 Active 25547589 Problem Renal insufficiency N28.9 Active 496226639 Problem Acquired hypothyroidism E03.9 Active 604515300 Problem Lymphedema I89.0 Active 213065945 Problem Lumbar pain M54.5 Active 558213548 Problem Nocturnal hypoxia G47.34 Active 532349688 ALLERGIES Substance Reaction Event Type Date Status Bactrim DS Unknown Drug Allergy Aug, Active ENCOUNTERS Encounter Location Date Diagnosis [facility] [address] [facility] [id number] [address] Apr, [facility] [address] [facility] [id number] [address] [address] March, [facility] [address] [id number] [address] 5007 Feb, [facility] [address] [id number], [place] [address] 7732 Jan, [facility] [address]00565100[place], [place] [address] 3149 Jan, [facility] [id number] [place] [address] 81081- 5891 Jan, Acquired hypothyroidism E03.9 ; Morbid (severe) obesity due to excess calories E66.01 ; Body mass index (BMI) 70 or greater, adult Z68.45 ; Cellulitis of left anterior lower leg L03.116 ; Restless legs syndrome G25.81 ; Nocturnal hypoxia G47.34 and Dependence on supplemental oxygen Z99.81 [facility] [id number] [place] [address] 14503- 1596 Jan, [facility] [id number] [place] [address] 08377- 9557 Dec, [facility] [id number] [place] [address] 79028- 7486 15 Oct, 2017 [facility] [id number] [place] [address] 36997- 3620 07 Oct, 2017 [facility] [id number] [place] [address] 08539- 6948 Sep, [facility] [id number] [place] [address] 94520- 4042 16 Sep, 2017 [facility] [id number] [place] [address] 17100- 0042 16 Sep, 2017 Dental examination Z01.20 [facility] [address] [id number], [place] [address]- 4757 Sep, Morbid obesity due to excess calories E66.01 ; Body mass index (BMI) of 70 or greater in adult Z68.45 ; Stasis dermatitis without varicosities I87.2 ; Lymphedema I89.0 ; Renal insufficiency N28.9 ; Acquired hypothyroidism E03.9 ; Cellulitis L03.90 ; Bronchitis J40 and BMI 40.0-44.9, adult Z68.41 [facility] [address] [facility] [id number], [place] [address] Aug, [facility] [address] [address] Aug, Dental examination Z01.20 [facility] [address]00565100[place], [place] [address] 9875 Aug, [facility] [id number] [place] [address] 51571- 8975 Jul, [facility] [id number] [place] [address] 33304- 2197 Jul, [facility] [id number] [place] [address] 24718- 7663 18 Jul, 2017 [facility] [id number] [place] [address] 19857- 1474 Jul, [facility] [address] [place] [address] 02294- 3654 Jul, [facility] [address] [place] [address] 64268- 2529 Jun, [facility] [address] [place] [address] 42329- 9637 Jun, Dependence on nocturnal oxygen therapy Z99.81 ; Morbid obesity due to excess calories E66.01 and Bronchitis J40 [facility] [address] [place] [address] 25295- 8775 Jun, Restless legs syndrome G25.81 [facility] [address]00565100[place], [place] [address]- 7182 Jun, [facility] [id number] [place] [address] 25031- 1979 May, [facility] [id number] [place] [address] [id number] Apr, [facility] [id number] [place] [address] 24451- 3103 Apr, [facility] [address]00565100[place], [place] [address]- 0282 Apr, Essential hypertension I10 [place] [address] [place] [address] 49134- 5305 Apr, [place] [address] [place] [address] 25827- 9544 Apr, Chronic pain syndrome G89.4 and Urge incontinence of urine N39.41 [place] [address] [place] [address] 25808- 5721 March, Acquired hypothyroidism E03.9 [place] [id number] [place] [address] 46963- 9339 March, [place] [id number] [place] [address] 62433- 1392 March, [place] [id number] [place] [address] 85577- 4083 March, Chronic pain syndrome G89.4 ; Essential [...] and Screening breast examination Z12.39 [place] [address]00565100[place], [place] [address]- 1519 March, [place] [address] [place] [address] 85529- 2443 Feb, [place] [id number] [place] [address] 29604- 4057 Feb, [place] [address]00565100[place], [place] [address]- 4339 Feb, Chronic pain syndrome G89.4 [facility] [address]00565100[place], [place] [address]78 Feb, Right foot pain M79.671 and Right foot sprain, initial encounter S93.601A [facility] [address] [id number], [place] [address]- 0930 Jan, [facility] [id number] [place] [address] 12865- 3554 Jan, [facility] [id number] [place] [address] 14068- 6690 Jan, Chronic pain syndrome G89.4 [facility] [id number] [place] [address] 79677- 2009 Jan, [facility] [id number] [place] [address] 30872- 1337 Dec, [facility] [id number] [place] [address] 83721- 6095 Dec, [facility] [id number] [place] [address] 70052- 9623 Dec, Pain in right knee M25.561 ; [...] urine N39.41 [facility] [address]65100[place], [place] [address]- 0821 Nov, Mixed hyperlipidemia E78.2 [facility] [id number] [place] [address] 92314- 8400 Nov, [facility] [address]00565100[place] [address]- 7849 Nov, [facility] [address] [place] [address]- 3441 Nov, [facility] [address] [id number], [place] [address]21 Nov, Stasis ulcer, left I83.029 [facility] [address] [facility] [id number] [place] [address]- 5680 Nov, [facility] [address]100[place], [place] [address]- 1085 Oct, [facility] [address] [id number] [place] [address]- 8814 Oct, [facility] [address] [place] [address]- 8242 Oct, [facility] [address] [place] [address]- 6984 Sep, [facility] [address]65100[place], [place] [address]- 4950 Sep, [facility] [address] [facility] [id number] [id number] Sep, [facility] [address], [place] [address]- 7697 Aug, [facility] [address] [id number], [place] [address]- 7864 Jul, [facility] [address] [id number], [place] [address]- 6398 Jul, [facility] [address] [id number], [place] [address]- 2763 Jul, [facility] [address], [place] [address]- 0358 Jul, [facility] [address] [id number], [place] [address]- 1401 14 Jul, 2016 Chest pain, unspecified type R07.9 ; Dyspnea on exertion R06.09 ; Essential hypertension I10 ; Hyperlipidemia, unspecified hyperlipidemia type E78.5 ; Left bundle branch block I44.7 and Hypothyroidism, unspecified type E03.9 [facility] [address] [address] -[address]998 Jun, Fever, unspecified fever cause R50.9 ; Headache, unspecified headache type R51 ; SOB (shortness of breath) R06.02 and Strep pharyngitis J02.0 [facility] [address] 60897- 0974 Jun, [facility] [address] 62562- 7387 Jun, [place] [address] 18466- 6607 Jun, Essential hypertension I10 ; Mixed hyperlipidemia E78.2 and Acquired hypothyroidism E03.9 [facility] [address] 22587- 0898 Jun, Edema of both legs R60.0 ; Hypoxia R09.02 and Essential hypertension I10 [place] [address] 06400- 7388 Jun, [facility] [address] 02154- 9021 Jun, Edema of both legs R60.0 ; Hypoxia R09.02 and Essential hypertension I10 [place] [address] 11291- 8001 Jun, Essential hypertension I10 ; Dependence on supplemental oxygen Z99.81 and Edema of both legs R60.0 [place] [address] 16209- 6278 May, Lumbar pain M54.5 ; Essential hypertension I10 ; Edema of both legs R60.0 ; Stasis dermatitis without varicosities I87.2 and Left knee pain M25.562 [place] [address] 97600- 8635 May, [facility] [address]65100[place], [place] [address]- 2905 May, [facility] [address], [place] [address]- 4290 May, [facility] [address]65100[place], [place] [address]- 3891 Apr, [facility] [address] [place] [address] 63729- 7082 Apr, [facility] [address]65100[place], [place] [address]- 2661 March, [facility] [address] [place] [address] 32461- 5236 March, Lymphedema I89.0 ; Morbid obesity due to excess calories E66.01 ; Alteration in mobility due to weakness R53.1 and Hypoxia R09.02 [facility] [address], [place] [address]- 2348 March, Abdominal wall mass R19.00 [facility] [address], [place] [address]- 2175 March, [facility] [address], [place] [address]- 2655 March, Abdominal wall mass R19.00 ; Lower abdominal pain R10.30 ; Alteration in mobility due to weakness R53.1 ; Hypoxia R09.02 and Lymphedema I89.0 [facility] [address]65100[place], [place] [address]- 3878 Feb, [facility] [address], [place] [address]- 4345 Feb, Acquired hypothyroidism E03.9 ; Dependence on machine for supplemental oxygen V46.2 ; Restless legs syndrome G25.81 ; Essential hypertension I10 ; Renal insufficiency N28.9 ; Chronic stasis dermatitis I83.10 ; Mixed hyperlipidemia E78.2 ; Other chronic pain 338.29 and Cellulitis of left lower extremity L03.116 [place] [id number] [place] [address] 73621- 2082 Feb, [place] [id number] [place] [address] 95053- 1586 Feb, [facility] [id number] [place] [address] 75767 -4534 Feb, Shortness of breath R06.02 and Bronchitis J40 [place] [id number] [place] [address] 05242- 8589 Jan, Dependence on supplemental oxygen Z99.81 [place] [address] 08734- 6537 Jan, [place] [address] 43149- 6115 Dec, [place] [address] 33240- 3495 Dec, [place] [id number] [place] [address] 49675- 9272 Nov, Osteoarthritis of knees, bilateral M17.0 [place] [id number] [place] [address] 02989- 7429 Nov, Dependence on machine for supplemental oxygen V46.2 ; Nocturnal hypoxia G47.34 and Urgency of urination R39.15 [place] [id number] [place] [address] 62080- 9038 Nov, [place] [id number] [place] [address] 50005- 7622 Oct, Pain in right knee M25.561 and Pain in left knee M25.562 [place] [id number] [place] [address] 48940- 1817 Oct, Acquired hypothyroidism E03.9 ; Renal insufficiency N28.9 and Chronic stasis dermatitis I83.10 [place] [id number] [place] [address] 10049- 6805 Oct, [place] [address] 44894- 6040 Sep, Cellulitis L03.90 ; Left knee pain M25.562 ; Essential hypertension I10 ; Lymphedema I89.0 ; Lumbar pain M54.5 ; Morbid obesity due to excess calories E66.01 and Renal insufficiency N28.9 [place] [address] 83713- 5874 Sep, Cellulitis L03.90 and Lymphedema I89.0 [place] [address] 71289- 4837 Sep, [place] [address] 76868- 5469 Sep, [place] [address] 58540- 8305 Sep, Left knee pain M25.562 ; Lumbar pain M54.5 ; Restless legs syndrome G25.81 ; Acquired hypothyroidism E03.9 and Essential hypertension I10 [place] [id number] [place] [address] 75827- 4976 Jul, [place] [id number] [place] [address] 23934- 7083 Jun, [place] [id number] [place] [address] 99590- 7674 May, [place] [id number] [place] [address] 55713- 5035 May, [place] [id number] [place] [address] 27352- 2696 May, Hypertension 997.91 ; Restless legs syndrome [RLS] 333.94 ; Unspecified venous (peripheral) insufficiency 459.81 ; Unspecified hypothyroidism 244.9 and Other chronic pain 338.29 [place] [address] [id number] [address] 3400 Apr, [facility] [address] [place] [address] 28643- 0117 Apr, [facility] [address] [id number], [place] [address]- 5014 Apr, Restless legs syndrome [RLS] 333.94 ; Shortness of breath 786.05 ; Unspecified venous (peripheral) insufficiency 459.81 ; Unspecified hypothyroidism 244.9 ; Obesity, unspecified 278.00 ; Other chronic pain 338.29 ; Hypertension 997.91 and Hyperlipidemia 272.4 [facility] [id number] [place] [address] 72322- 5327 Feb, [facility] [id number] [place] [address] 31573- 4031 Feb, [facility] [id number] [place] [address] 89076- 6973 Jan, [facility] [address] [id number], [place] [address]- 1810 30 Jan, 2015 [facility] [id number] [place] [address] 42516- 6132 Jan, [facility] [address], [place] [address]- 0694 Jan, [facility] [address] [place] [address] 60952- 1279 Jan, [facility] [address] [address]- 1007 Jan, [facility] [id number] [place] [address] 870633- 5681 Jan, [facility] [id number] 3353 Jan, [facility] [address] [place] [address] 660347- 7847 Jan, [facility] [place] [facility] [address] [id number] [place] [address]- 1572 Jan, [facility] [place] [facility] [address] [id number] [place] [address]- 6234 Jan, [facility] [place] [facility] [address] [id number] [place] [address]- 3413 Jan, [facility] [place] [facility] [address] [id number] [place] [address]- 0889 Jan, [facility] [place] [facility] [address] [id number] [place] [address]- 6409 Jan, [facility] [place] [facility] [address] [id number] [place] [address]- 3482 Dec, [facility] [place] [facility] [address] [id number] [place] [address]- 1588 Dec, [facility] [place] [facility] [address] [id number] [place] [address]- 2638 Nov, [facility] [place] [facility] [address] [id number] [place] [address]- 2715 Nov, [facility] [place] [facility] [address] [id number] [place] [address]- 3988 Nov, [facility] [place] [facility] [address] [id number] [place] [address]- 4216 Nov, [facility] [place] [facility] [address] [id number], [place] [address]- 9927 Nov, [facility] [place] [facility] [address] [id number] [place] [address]- 0896 Nov, [facility] [place] [facility] [address] [id number] [place] [address]- 7661 Nov, [facility] [place] [facility] [address] [id number] [place] [address]- 7169 Nov, [facility] [place] [facility] [address] [id number], [place] [address]- 5244 Nov, [facility] [place] [facility] [address] [id number] [place] [address]- 9684 Nov, [facility] [place] [facility] [address] [id number], [place] [address]- 9605 Nov, [facility] [place] [facility] [address] [facility] [id number] [place] [address]- 4347 Nov, [facility] [place] [facility] [address] [id number] [place] [address]- 9045 Nov, [facility] [place] [facility] [address] [id number] [place] [address]- 7630 Nov, [facility] [place] [facility] [address] [id number] [place] [address]- 9953 Nov, [facility] [place] [facility] [address] [facility] [id number], [place] [address]- 0211 Nov, [facility] [place] [facility] [address] [id number], [place] [address]- 2716 Oct, [facility] [place] [facility] [address] [id number] [place] [address]- 0581 Oct, [facility] [place] [facility] [address] [facility] [id number], [place] [address]- 3940 Sep, [facility] [place] [facility] [address] [id number], [place] [address]- 0531 Aug, [facility] [place] [facility] [address] [id number], [place] [address]- 1720 Aug, [facility] [place] [facility] [address] [id number], [place] [address]- 1904 Aug, [facility] [place] [facility] [address] [facility] [id number], [place] [address]- 7887 Aug, [facility] [place] [facility] [address] [facility] [id number], [place] [address]- 4009 Aug, [facility] [place] [facility] [address] [id number] [place] [address]- 8619 Aug, [facility] [place] [facility] [address] [id number] [place] [address]- 9317 Aug, [facility] [place] [facility] [address] [id number] [place] [address]- 7742 Aug, [facility] [place] [facility] [address] [id number] [place] [address]- 1394 Aug, [facility] [place] [facility] [address] [id number] [place] [address]- 8690 Aug, [facility] [place] [facility] [address] [id number] [place] [address]- 8319 Jun, [facility] [place] [facility] [address] [id number] [place] [address]- 9647 Jun, [facility] [place] [facility] [address] [id number] [place] [address]- 9099 Jun, [facility] [place] [facility] [address] [id number] [place] [address]- 5956 Jun, [facility] [place] [facility] [address] [id number] [place] [address]- 7638 Jun, [facility] [place] [facility] [address] [id number] [place] [address] Jun, [facility] [place] [facility] [address] [id number] [place] [address] Jun, [facility] [place] [facility] [address] [id number] [place] [address] Jun, [facility] [place] [facility] [address] [id number] [place] [address] Jun, [facility] [place] [facility] [address] [id number] [place] [address] Jun, [facility] [place] [facility] [address] [id number] [place] [address] May, [facility] [place] [facility] [address] [id number] [place] [address] May, [facility] [place] [facility] [address] [id number] [place] [address] May, [facility] [place] [facility] [address] [id number] [place] [address] May, [facility] [place] [facility] [address] [id number] [place] [address] May, [facility] [place] [facility] [address] [id number] [place] [address] May, [facility] [place] [facility] [address] [id number] [place] [address] May, [facility] [place] [facility] [address] [id number] [place] [address] May, [facility] [place] [facility] [address] [id number] [place] [address] May, [facility] [place] [facility] [address] [id number] [place] [address] May, [facility] [place] [facility] [address] [id number] [place] [address] May, [facility] [place] [facility] [address] [id number] [place] [address] May, [facility] [place] [facility] [address] [id number] [place] [address] May, [facility] [place] [facility] [address] [id number] [place] [address] May, [facility] [place] [facility] [address] [id number] [place] [address] May, [facility] [place] [facility] [address] [id number] [place] [address] May, 2013 [facility] [place] [facility] [address] [id number] [place] [address] May, [facility] [place] [facility] [address] [id number] [place] [address] May, [facility] [place] [facility] [address] [id number] [place] [address] Apr, [facility] [place] [facility] [address] [id number] [place] [address] Apr, [facility] [place] [facility] [address] [id number] [place] [address] Apr, [facility] [place] [facility] [address] [id number] [place] [address] Apr, [facility] [place] [facility] [address] [id number] [place] [address] Apr, [facility] [place] [facility] [address] [id number] [place] [address] Apr, [facility] [place] [facility] [address] [id number] [place] [address] Apr, [facility] [place] [facility] [address] [id number] [place] [address] Apr, [facility] [place] [facility] [address] [id number] [place] [address] Apr, [facility] [place] [facility] [address] [id number] [place] [address] Apr, [facility] [place] [facility] [address] [id number] [place] [address] Apr, [facility] [place] [facility] [address] [id number] [place] [address] Apr, [facility] [place] [facility] [address] [id number] [place] [address] March, [facility] [place] [facility] [address] [id number] [place] [address] March, [facility] [place] [facility] [address] [id number] [place] [address] March, [facility] [place] [facility] [address] [id number] [place] [address] March, [facility] [place] [facility] [address] [id number] [place] [address] March, [facility] [place] [facility] [address] [id number] [place] [address] March, [facility] [address] [id number] [place] [address] March, [facility] [place] [facility] [address] [id number] [place] [address] 9616 March, [facility] [address] [id number] [place] [address] 48[address] March, [facility] [place] [facility] [address] [id number] [place] [address] 1752 March, [facility] [place] [facility] [address] [id number] [place] [address] 7619 March, [facility] [place] [facility] [address] [id number] [place] [address]- 7672 Feb, [facility] [place] [facility] [address] [id number] [place] [address] 6056 Feb, [facility] [place] [facility] [address] [id number] [place] [address]- 0710 Feb, [facility] [place] [facility] [address] [id number] [place] [address]- 9437 Feb, [facility] [place] [facility] [address] [id number] [place] [address]- 9724 Feb, [facility] [place] [facility] [address] [id number] [place] [address]- 4387 Feb, [facility] [place] [facility] [address] [id number] [place] [address]- 1162 Feb, [facility] [place] [facility] [address] [id number] [place] [address]- 8525 Feb, [facility] [place] [facility] [address] [id number] [place] [address]- 2750 Feb, [facility] [place] [facility] [address] [id number] [place] [address]- 3182 Feb, [facility] [place] [facility] [address] [id number] [place] [address]- 8697 Feb, [facility] [place] [facility] [address] [id number] [place] [address]- 1710 Feb, [facility] [place] [facility] [address] [id number] [place] [address]- 1010 Feb, [facility] [place] [facility] [address] [id number] [place] [address]- 5372 Feb, [facility] [place] [facility] [address] [id number] [place] [address]- 6337 Feb, [facility] [place] [facility] [address] [id number] [place] [address]- 0037 Feb, [facility] [place] [facility] [address] [id number] [place] [address]- 9979 Feb, [facility] [place] [facility] [address] [id number] [place] [address]- 7492 Feb, [facility] [place] [facility] [address] [id number] [place] [address]- 9921 Feb, [facility] [place] [facility] [address] [id number] [place] [address]- 7118 Feb, [facility] [place] [facility] [address] [id number] [place] [address]- 1023 Jan, [facility] [place] [facility] [address] [id number] [place] [address]- 7025 Jan, [facility] [place] [facility] [address] [id number] [place] [address]- 0558 25 Jan, 2014 [facility] [place] [facility] [address] [id number] [place] [address]- 6710 Jan, [facility] [place] [facility] [address] [id number] [place] [address]- 0547 Jan, [facility] [place] [facility] [address] [id number] [place] [address]- 0713 Jan, [facility] [place] [facility] [address] [id number] [place] [address]- 3133 18 Jan, 2014 [facility] [place] [facility] [address] [id number] [place] [address]- 0277 18 Jan, 2014 [facility] [place] [facility] [address] [id number] [place] [address]- 9609 Jan, [facility] [place] [facility] [address] [id number] [place] [address]- 8587 14 Jan, 2014 [facility] [place] [facility] [address] [id number] [place] [address]- 8128 Jan, [facility] [place] [facility] [address] [id number] [place] [address]- 6481 Jan, [facility] [place] [facility] [address] [id number] [place] [address]- 1760 Jan, [facility] [place] [facility] [address] [id number] [place] [address]- 7274 Jan, [facility] [place] [facility] [address] [id number] [place] [address]- 4799 Dec, [facility] [place] [facility] [address] [id number] [place] [address]- 9415 Dec, [facility] [place] [facility] [address] [id number] [place] [address]- 7700 Dec, [facility] [place] [facility] [address] [id number] [place] [address]- 6717 Dec, [facility] [place] [facility] [address] [id number] [place] [address]- 7729 Dec, [facility] [place] [facility] [address] [id number] [place] [address]- 1246 Dec, [facility] [place] [facility] [address] [id number] [place] [address]- 2486 Dec, [facility] [place] [facility] [address] [id number] [place] [address]- 0938 Dec, [facility] [place] [facility] [address] [id number] [place] [address]- 7526 Dec, [facility] [place] [facility] [address] [id number] [place] [address]- 0748 Nov, [facility] [place] [facility] [address] [id number] [place] [address]- 4862 Nov, [facility] [place] [facility] [address] [id number] [place] [address]- 0139 Nov, [facility] [place] [facility] [address] [id number] [place] [address]- 5870 Nov, [facility] [place] [facility] [address] [id number] [place] [address]- 9429 Oct, [facility] [place] [facility] [address] [id number] [place] [address]- 8609 Oct, [facility] [place] [facility] [address] [id number] [place] [address]- 4613 Oct, [facility] [place] [facility] [address] [id number] [place] [address]- 5515 Oct, [facility] [place] [facility] [address] [id number] [place] [address]- 7896 Oct, [facility] [place] [facility] [address] [id number] [place] [address]- 1315 Oct, [facility] [place] [facility] [address] [id number] [place] [address]- 6159 23 Oct, 2012 [facility] [address] [id number] [place] [address]- 2386 23 Oct, 2013 [facility] [address] [id number] [place] [address] 20 Oct, 2013 [facility] [address] [id number] [place] [address]- 2006 19 Oct, 2012 [facility] [address] [id number] [place] [address]- 2232 19 Oct, 2013 [facility] [address] [id number] [place] 2014 18 Oct, 2013 [facility] [address] [id number] [place] [address]- 3743 18 Oct, 2013 [facility] [address] [id number] [place] [address]- 3225 17 Oct, 2013 [facility] [address] [id number] [place] [address]- 9067 17 Oct, 2013 [facility] [address] [id number] [place] [address]- 9945 17 Oct, 2013 [facility] [address] [id number] [place] [address]- 4361 17 Oct, 2013 [facility] [address] [id number] [place] [address]- 3017 17 Oct, 2013 [facility] [address] [id number] [place] [address]- 5602 17 Oct, 2013 [facility] [address] [id number] [place] [address]- 9083 11 Oct, 2013 [facility] [address] [id number] [place] [address]- 7366 11 Oct, 2013 [facility] [address] [id number] [place] [address]- 0510 Sep, [facility] [place] [facility] [address] [id number] [place] [address]- 9801 Sep, [facility] [place] [facility] [address] [id number] [place] [address]- 6890 Sep, [facility] [place] [facility] [address] [id number] [place] [address]- 5054 Sep, [facility] [place] [facility] [address] [id number] [place] [address]- 1069 Sep, [facility] [place] [facility] [address] [id number] [place] [address]- 7439 Sep, [facility] [place] [facility] [address] [id number] [place] [address]- 1266 Sep, [facility] [place] [facility] [address] [id number] [place] [address]- 1803 Sep, [facility] [place] [facility] [address] [id number] [place] [address]- 9410 Sep, [facility] [place] [facility] [address] [id number] [place] [address]- 1299 Sep, [facility] [place] [facility] [address] [id number], [place] [address]- 7474 Sep, [facility] [place] [facility] [address] [id number], [place] [address]- 7788 Sep, [facility] [place] [facility] [address] [id number], [place] [address]- 5090 Aug, [facility] [place] [facility] [address] [id number] [place] [address]- 8915 Aug, [facility] [place] [facility] [address] [id number] [place] [address]- 9700 Aug, [facility] [place] [facility] [address] [id number] [place] [address]- 9816 Aug, [facility] [place] [facility] [address] [id number] [place] [address]- 9537 Aug, 2012 [facility] [place] [facility] [address] [id number] [place] [address]- 8508 23 Aug, 2012 [facility] [place] [facility] [address] [id number] [place] [address]- 3625 Aug, 2012 [facility] [place] [facility] [address] [id number] [place] [address]- 3652 Aug, 2012 [facility] [place] [facility] [address] [id number] [place] [address]- 5914 16 Aug, 2012 [facility] [place] [facility] [address] [id number] [place] [address]- 8321 16 Aug, 2012 [facility] [place] [facility] [address] [id number] [place] [address]- 1634 10 Aug, 2012 [facility] [place] [facility] [address] [id number] [place] [address]- 4903 10 Aug, 2012 [facility] [place] [facility] [address] [id number] [place] [address]- 5780 08 Aug, 2013 [facility] [place] [facility] [address] [id number] [place] [address]- 9428 07 Aug, 2012 [facility] [place] [facility] [address] [id number] [place] [address]- 3940 04 Aug, 2013 [facility] [place] [facility] [address] [id number] [place] [address]- 2611 Aug, [facility] [place] [facility] [address] [id number], [place] [address]- 3966 Aug, [facility] [place] [facility] [address] [id number] [place] [address]- 0017 16 Jul, 2013 [facility] [place] [facility] [address] [id number] [place] [address]- 1130 Jun, [facility] [place] [facility] [address] [id number] [place] [address]- 7640 Jun, [facility] [place] [facility] [address] [id number] [place] [address]- 6272 May, [facility] [place] [facility] [address] [id number] [place] [address]- 1324 May, [facility] [place] [facility] [address] [id number] [place] [address]- 1360 Apr, [facility] [place] [facility] [address] [id number] [place] [address]- 2111 Apr, [facility] [place] [facility] [address] [id number] [place] [address]- 1461 Apr, [facility] [place] [facility] [address] [id number] [place] [address]- 6733 Apr, [facility] [place] [facility] [address] [id number] [place] [address]- 1431 Apr, [facility] [place] [facility] [address] [id number] [place] [address]- 2896 Apr, [facility] [place] [facility] [address] [id number] [place] [address]- 2413 Apr, [facility] [place] [facility] [address] [id number] [place] [address]- 3818 Apr, [facility] [place] [facility] [address] [id number] [place] [address]- 7890 Apr, [facility] [place] [facility] [address] [id number] [place] [address]- 9227 Apr, [facility] [place] [facility] [address] [id number] [place] [address]- 5196 Apr, [facility] [place] [facility] [address] [id number] [place] [address]- 8516 March, [facility] [place] [facility] [address] [id number] [place] [address]- 2957 March, [facility] [place] [facility] [address] [id number] [place] [address]- 8564 March, [facility] [address] [id number] [place] [address]- 7254 March, [facility] [address] [id number] [place] [address]- 3986 March, [facility] [address] [id number] [place] [address]- 3583 Feb, [facility] [address] [id number] [place] [address]- 5421 Feb, [facility] [address] [id number] [place] [address]- 2438 Jan, [facility] [address] [id number] [place] [address]- 8196 Jan, [facility] [address] [id number] [place] [address]- 9016 Jan, [facility] [address] [id number] [place] [address]- 1345 Jan, [facility] [address] [id number] [place] [address]- 5620 Jan, [facility] [address] [id number] [place] [address]- 8717 Dec, [facility] [address] [id number], [place] [address]- 6196 Dec, [facility] [place] [facility] [address] [id number], [place] [address]- 6307 Nov, [facility] [place] [facility] [address] [id number] [place] [address]- 0936 Nov, [facility] [place] [facility] [address] [id number] [place] [address]- 3912 Nov, [facility] [place] [facility] [address] [id number] [place] [address]- 7096 Nov, [facility] [place] [facility] [address] [id number] [place] [address]- 3224 15 Nov, 2012 [facility] [address] [id number] [place] [address]- 4973 14 Nov, 2012 [facility] [address] [id number] [place] [address]- 7599 14 Nov, 2012 [facility] [address] [id number] [place] [address]- 0417 11 Nov, 2012 [facility] [address] [id number] [place] [address]- 6182 Nov, [facility] [address] [id number] [place] [address]- 4894 Nov, [facility] [address] [id number] [place] [address]- 1078 Nov, [facility] [address] [id number] [place] [address]- 0584 Oct, [facility] [address] [id number] [place] [address]- 4517 Oct, [facility] [address] [id number] [place] [address]- 3880 Sep, [facility] [address] [id number] [place] [address]- 5210 Sep, [facility] [address] [id number] [place] [address]- 9077 Sep, [facility] [address] [id number] [place] [address]- 9076 Sep, [facility] [address] [id number] [place] [address]- 9213 Sep, [facility] [address] [id number] [place] [address]- 6445 Sep, [facility] [address] [id number] [place] [address]- 3170 Sep, [facility] [place] [facility] [address] [id number] [place] [address]- 3318 Sep, [facility] [place] [facility] [address] [id number] [place] [address]- 5920 Sep, [facility] [place] [facility] [address] [id number] [place] [address]- 9387 Sep, [facility] [place] [facility] [address] [id number] [place] [address]- 5892 Sep, [facility] [place] [facility] [address] [id number] [place] [address]- 6163 Sep, [facility] [place] [facility] [address] [id number] [place] [address]- 1685 Sep, [facility] [place] [facility] [address] [facility] [id number] [place] [address]- 0298 Sep, [facility] [place] [facility] [address] [id number], [place] [address]- 5775 Aug, [facility] [place] [facility] [address] [facility] [id number], [place] [address]- 9919 Aug, [facility] [place] [facility] [address] [facility] [id number], [place] [address]- 0014 Aug, [facility] [place] [facility] [address] [facility] [id number], [place] [address]- 5129 Aug, [facility] [place] [facility] [address] [id number], [place] [address]- 7546 Aug, [facility] [place] [facility] [address] [facility] [id number], [place] [address]- 7175 Aug, [facility] [place] [facility] [address] [facility] [id number], [place] [address]- 1889 Aug, [facility] [place] [facility] [address] [facility] [id number], [place] [address]- 3661 Aug, [facility] [place] [facility] [address] [id number], [place] [address]- 0395 Aug, [facility] [id number], [place] [address]- 8594 Aug, [facility] [id number], [place] [address]- 2903 Aug, [facility] [id number] 9024 Aug, [facility] [id number] 9270 Aug, [facility] [id number] [place] [address]- 2021 Aug, [facility] [id number] [place] [address]- 0224 Aug, [facility] [id number] [place] [address] 867[address]- 4019 Aug, [facility] [id number], [place] [address]- 4800 Aug, [facility] [id number] [address] Jul, [facility] [id number] [address] Jun, [facility] [id number] [address] Aug, [facility] [id number] [address] Aug, [facility] [id number] [address] Aug, IMMUNIZATIONS No Known Immunizations SOCIAL HISTORY Never Assessed REASON FOR VISIT PLAN OF CARE Activity Details Follow Up phillip Reason:srp/perio chart VITAL SIGNS MEDICATIONS Medication Instructions Dosage Frequency Start Date End Date Duration Status Potassium Chloride ER 20 meq Orally Once a day 1 tablet with food 24h 30 Active Cymbalta 60 mg Orally Once a day 1 capsule 24h 30 Active Levothyroxine Sodium 75 mcg Orally Once a day 1 tablet on an empty stomach in the morning 24h 30 Active Plavix 75 MG Orally Once a day 1 tablet 24h 30 Active Aspir-81 81 MG Orally Once a day 1 tablet 24h Active Omeprazole 20 mg Orally Once a day 1 capsule 24h Active Ropinirole HCl 4 MG Orally Once a day 1 tablet 1 to 3 hours before bedtime 24h 30 Active Neurontin 300 MG Orally Once a day at night 1 capsule 30 Active Albuterol Sulfate 90 mcg/actuation take 2 puffs by Inhalation route every 4 -6 hours as needed PRN cough or wheezing Jan, Active Wheelchair 1 as directed March, Active Proventil HFA 108 (90 Base) MCG/ACT INHALE TWO PUFFS BY MOUTH EVERY 4 TO 6 HOURS NEEDED FOR COUGH OR WHEEZE 17 Active Cyclobenzaprine HCl 10 mg Orally at bedtime 1 tablet Active Metolazone 2.5 MG Orally Once a day 1 tablet 24h 30 Active Metoprolol Tartrate 25 MG Orally Twice a day 1 tablet with food 12h 30 Active Simvastatin 20 mg Orally at bedtime 1 tablet Active Incontinence Supplies - Depends brief-size requested by patient 8h Apr Active Entresto 24-26 MG Orally Twice a day 1 tablet 12h Active RESULTS No Results PROCEDURES Procedure Date Ordered Result Body Site LTD ORAL EVALUATION - PROBLEM FOCUS Sep 08, 2017 INTRAORL-PERIAPICAL 1 FILM [id number] Sep 08, 2017 PANORAMIC FILM SEE ALSO CODE [id number] Sep 08, 2017 BITEWINGS - FOUR FILMS Sep 08, 2017 INSTRUCTIONS MEDICATIONS ADMINISTERED No Known Medications [...]
--- OUTSIDE RECORDS SUMMARY | 2018-09-08 15:25 | XMS REPORT ---
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 Active 29795219 Problem Urge incontinence of urine N39.41 Active 19678275 Problem Dependence on supplemental oxygen Z99.81 Active 758958277871 Problem Other chronic pain G89.29 Active 62705260 Problem Restless legs syndrome G25.81 Active 966737210 Problem Chronic systolic heart failure I50.22 Active 130266768 Problem Chronic pain syndrome G89.4 Active 658769909 Problem Gastroesophageal reflux disease without esophagitis K21.9 Active 403069323 Problem Morbid obesity E66.01 Active 434710013 Problem Morbid (severe) obesity due to excess calories E66.01 Active 182982481 Problem Lumbar pain M54.5 Active 991676951 Problem Chronic stasis dermatitis I83.10 Active 54830260 Problem Essential hypertension I10 Active 14209195 Problem Acquired hypothyroidism E03.9 Active 031008100 Problem Nocturnal hypoxia G47.34 Active 319363262 Problem Mixed hyperlipidemia E78.2 Active 408761862 Problem Renal insufficiency N28.9 Active 733577201 Problem Edema of both legs R60.0 Active 731526794 Problem Lymphedema I89.0 Active 956182018 Problem Stasis dermatitis without varicosities I87.2 Active 43887053 ALLERGIES No Information ENCOUNTERS Encounter Location Date Diagnosis [facility] [address] [facility] [id number] [address] May, [facility] [address] [id number] [address] 9[address] Apr, Essential hypertension I10 ; Chronic systolic heart failure I50.22 ; Pain in right knee M25.561 ; Pain in left knee M25.562 ; Other chronic pain G89.29 ; Mixed hyperlipidemia E78.2 ; Morbid obesity E66.01 and Body mass index (BMI) 70 or greater, adult Z68.45 [facility] [id number] [place] [address] 57051- 5139 18 Apr, 2018 [place] [id number] [place] [address] 98432- 4122 Apr, Acquired hypothyroidism E03.9 [place] [id number] [place] [address] 04475- 0675 Apr, Acquired hypothyroidism E03.9 [place] [id number] [place] [address] 11520- 0756 Apr, [place] [id number] [place] [address] 90840- 0301 Apr, [place] [id number] [place] [address] 70189- 7221 Apr, Acquired hypothyroidism E03.9 ; Morbid (severe) obesity due to excess calories E66.01 ; Body mass index (BMI) 70 or greater, adult Z68.45 ; Restless legs syndrome G25.81 ; Essential hypertension I10 and Lymphedema I89.0 [place] [id number] [place] [address] 66021- 1681 Feb, [place] [id number] [place] [address] 62185- 1890 Jan, [place] [id number] [place] [address] 80439- 0271 Jan, [place] [id number] [place] [address] 16850- 7853 Jan, Acquired hypothyroidism E03.9 ; Morbid (severe) obesity due to excess calories E66.01 ; Body mass index (BMI) 70 or greater, adult Z68.45 ; Cellulitis of left anterior lower leg L03.116 ; Restless legs syndrome G25.81 ; Nocturnal hypoxia G47.34 and Dependence on supplemental oxygen Z99.81 [facility] [id number] [place] [address] 33521- 6945 Jan, [facility] [id number] [place] [address] 38583- 9674 Dec, [facility] [id number] [place] [address] 50637- 3104 Oct, [facility] [id number] [place] [address] 39760- 4366 Oct, [facility] [id number] [place] [address] 53724- 4942 Sep, [facility] [id number] [place] [address] 85203- 9284 Sep, [facility] [id number] [place] [address] 42200- 6884 Sep, Dental examination Z01.20 [facility] [id number] [place] [address] 59503- 6339 Sep, Morbid obesity due to excess calories E66.01 ; Body mass index (BMI) of 70 or greater in adult Z68.45 ; Stasis dermatitis without varicosities I87.2 ; Lymphedema I89.0 ; Renal insufficiency N28.9 ; Acquired hypothyroidism E03.9 ; Cellulitis L03.90 ; Bronchitis J40 and BMI 40.0-44.9, adult Z68.41 [facility] [address], [place] [address] 1497 Aug, [facility] [id number] [place] [address] [id number] Aug, Dental examination Z01.20 [facility] [id number] [place] [address] 69673- 2412 Aug, [facility] [id number] [place] [address] 72034- 8822 Jul, [facility] [id number] [place] [address] 98693- 8006 19 Jul, 2017 [facility] [id number] [place] [address] 23687- 7713 18 Jul, 2017 [facility] [id number] [place] [address] 76704- 9061 14 Jul, 2017 [facility] [id number] [place] [address] 83138- 0524 Jul, [facility] [id number] [place] [address] 09771- 2705 Jun, [facility] [id number] [place] [address] 53011- 7857 Jun, Dependence on nocturnal oxygen therapy Z99.81 ; Morbid obesity due to excess calories E66.01 and Bronchitis J40 [facility] [id number] [place] [address] 93763- 8821 Jun, Restless legs syndrome G25.81 [facility] [id number] [place] [address] 01473- 4567 Jun, [facility] [id number] [place] [address] 11104- 3547 May, [facility] [place] [id number] [place] [address] [id number] Apr, [facility] [id number] [place] [address] 69673- 4585 Apr, [facility] [id number] [place] [address] 47444- 3492 Apr, Essential hypertension I10 [facility] [id number] [place] [address] 03057- 4119 Apr, [facility] [id number] [place] [address] 24226- 5000 Apr, Chronic pain syndrome G89.4 and Urge incontinence of urine N39.41 [facility] [address] [id number] [address] 0990 March, Acquired hypothyroidism E03.9 [facility] [id number] [place] [address] 12964- 9296 March, [facility] [id number] [place] [address] 71317- 5173 March, [facility] [id number] [place] [address] 78387- 1413 March, Chronic pain syndrome G89.4 ; Essential [...] extremity L03.116 and Screening breast examination Z12.39 [place] [id number] [place] [address] 95298- 2439 March, [place] [id number] [place] [address] 72061- 6063 Feb, [place] [id number] [place] [address] 47560- 5613 Feb, [place] [id number] [place] [address] 10929- 2329 Feb, Chronic pain syndrome G89.4 [facility] [id number] [place] [address] 26333 -1023 Feb, Right foot pain M79.671 and Right foot sprain, initial encounter S93.601A [facility] [id number] [place] [address] 49466- 4583 Jan, [facility] [id number] [place] [address] 12277- 9326 Jan, [facility] [id number] [place] [address] 09240- 5285 Jan, Chronic pain syndrome G89.4 [facility] [id number] [place] [address] 82246- 9358 Jan, [facility] [id number] [place] [address] 35170- 1591 Dec, [facility] [address] 22553- 6452 Dec, [facility] [id number] [place] [address] 72225- 5496 Dec, Pain in right knee M25.561 ; Pain in left knee M25.562 ; Essential hypertension I10 ; Chronic stasis dermatitis I83.10 ; Restless legs syndrome G25.81 ; Acquired hypothyroidism E03.9 ; Dependence on nocturnal oxygen therapy Z99.81 ; Mixed hyperlipidemia E78.2 ; Lymphedema I89.0 ; Chronic pain syndrome G89.4 ; Gastroesophageal reflux disease without esophagitis K21.9 and Urge incontinence of urine N39.41 [facility] [id number] [place] [address] 21538- 3924 Nov, Mixed hyperlipidemia E78.2 [facility] [id number] [place] [address] 88679- 4746 Nov, [facility] [id number] [place] [address] 90759- 3243 Nov, [facility] [id number] [place] [address] 78734- 3998 Nov, [facility] [id number] [place] [address] 40530 -3995 Nov, Stasis ulcer, left I83.029 [facility] [id number] [place] [address] 67065- 3157 Nov, [facility] [id number] [place] [address] 55807- 0727 Oct, [facility] [address] [id number], [place] [address]- 0921 Oct, [facility] [address], [place] [address]- 5506 Oct, [facility] [address], [place] [address]- 6459 Sep, [facility] [address], [place] [address]- 9811 Sep, [address] [id number] Sep, [facility] [address], [place] [address]- 2277 Aug, [facility] [address], [place] [address]- 7045 Jul, [facility] [address], [place] [address]- 7617 Jul, [facility] [address] [address]- 6819 Jul, [facility] [address], [place] [address]- 5746 Jul, [facility] [address] [address]- 5635 Jul, Chest pain, unspecified type R07.9 ; Dyspnea on exertion R06.09 ; Essential hypertension I10 ; Hyperlipidemia, unspecified hyperlipidemia type E78.5 ; Left bundle branch block I44.7 and Hypothyroidism, unspecified type E03.9 [facility] [id number], [place] [address] Jun, Fever, unspecified fever cause R50.9 ; Headache, unspecified headache type R51 ; SOB (shortness of breath) R06.02 and Strep pharyngitis J02.0 [facility] [address] [id number], [place] [address]- 7267 Jun, [facility] [id number] [place] [address] 57609- 8948 Jun, [facility] [id number] [place] [address] 92637- 9966 Jun, Essential hypertension I10 ; Mixed hyperlipidemia E78.2 and Acquired hypothyroidism E03.9 [facility] [id number] [place] [address] 35043- 5618 Jun, Edema of both legs R60.0 ; Hypoxia R09.02 and Essential hypertension I10 [facility] [id number] [place] [address] 36281- 0810 Jun, [facility] [id number] [place] [address] 34114- 0652 Jun, Edema of both legs R60.0 ; Hypoxia R09.02 and Essential hypertension I10 [facility] [id number] [place] [address] 85199- 1185 Jun, Essential hypertension I10 ; Dependence on supplemental oxygen Z99.81 and Edema of both legs R60.0 [facility] [id number] [place] [address] 53015- 2803 May, Lumbar pain M54.5 ; Essential hypertension I10 ; Edema of both legs R60.0 ; Stasis dermatitis without varicosities I87.2 and Left knee pain M25.562 [facility] [id number] [place] [address] 53951- 4178 May, [facility] [id number] [place] [address] 40939- 2402 May, [facility] [id number] [place] [address] 32041- 7812 May, [facility] [id number] [place] [address] 08350- 7007 Apr, [facility] [id number] [place] [address] 32563- 5794 Apr, [facility] [id number] [place] [address] 47285- 3514 March, [facility] [id number] [place] [address] 36274- 0620 March, Lymphedema I89.0 ; Morbid obesity due to excess calories E66.01 ; Alteration in mobility due to weakness R53.1 and Hypoxia R09.02 [place] [id number] [place] [address] 70680- 5831 March, Abdominal wall mass R19.00 [place] [id number] [place] [address] 75676- 3202 March, [place] [id number] [place] [address] 77692- 0118 March, Abdominal wall mass R19.00 ; Lower abdominal pain R10.30 ; Alteration in mobility due to weakness R53.1 ; Hypoxia R09.02 and Lymphedema I89.0 [place] [id number] [place] [address] 85399- 6203 Feb, [facility] [id number] [place] [address] 92371- 0786 Feb, Acquired hypothyroidism E03.9 ; Dependence on machine for supplemental oxygen V46.2 ; Restless legs syndrome G25.81 ; Essential hypertension I10 ; Renal insufficiency N28.9 ; Chronic stasis dermatitis I83.10 ; Mixed hyperlipidemia E78.2 ; Other chronic pain 338.29 and Cellulitis of left lower extremity L03.116 [facility] [id number] [place] [address] 75525- 2330 Feb, [facility] [id number] [place] [address] 21872- 3292 Feb, [facility] [id number] [place] [address] 45058 -1585 Feb, Shortness of breath R06.02 and Bronchitis J40 [facility] [id number] [place] [address] 15248- 8575 Jan, Dependence on supplemental oxygen Z99.81 [place] [address] 21503- 1977 Jan, [place] [address] 77616- 3127 Dec, [place] [address] 75636- 2293 Dec, [place] [address] 70124- 1382 Nov, Osteoarthritis of knees, bilateral M17.[address] 19458- 7266 Nov, Dependence on machine for supplemental oxygen V46.2 ; Nocturnal hypoxia G47.34 and Urgency of urination R39.15 [place] [address] 48932- 7490 Nov, [place] [address] 75690- 5314 Oct, Pain in right knee M25.561 and Pain in left knee M25.[address] 87934- 4570 Oct, Acquired hypothyroidism E03.9 ; Renal insufficiency N28.9 and Chronic stasis dermatitis I83.10 [place] [id number] [place] [address] 50207- 5784 Oct, [address] 04339- 3382 Sep, Cellulitis L03.90 ; Left knee pain M25.562 ; Essential hypertension I10 ; Lymphedema I89.0 ; Lumbar pain M54.5 ; Morbid obesity due to excess calories E66.01 and Renal insufficiency N28.9 [place] [address] 48138- 5205 Sep, Cellulitis L03.90 and Lymphedema I89.0 [facility] [id number] [place] [address] 52776- 6830 Sep, [facility] [id number] [place] [address] 83043- 7997 Sep, [facility] [address] 41028- 8575 Sep, Left knee pain M25.562 ; Lumbar pain M54.5 ; Restless legs syndrome G25.81 ; Acquired hypothyroidism E03.9 and Essential hypertension I10 [place] [address] 44622- 7166 Jul, [facility] [address] 49259- 9525 Jun, [facility] [address] 72761- 4843 May, [facility] [id number] [place] [address] 92694- 2724 May, [facility] [id number] [place] [address] 50383- 5515 May, Hypertension 997.91 ; Restless legs syndrome [RLS] 333.94 ; Unspecified venous (peripheral) insufficiency 459.81 ; Unspecified hypothyroidism 244.9 and Other chronic pain 338.29 [facility] [id number] [place] [address] 52995- 5338 Apr, [facility] [id number] [place] [address] 30588- 9219 Apr, [facility] [id number] [place] [address] 76605- 7191 Apr, Restless legs syndrome [RLS] 333.94 ; Shortness of breath 786.05 ; Unspecified venous (peripheral) insufficiency 459.81 ; Unspecified hypothyroidism 244.9 ; Obesity, unspecified 278.00 ; Other chronic pain 338.29 ; Hypertension 997.91 and Hyperlipidemia 272.4 [facility] [address] [id number] [place] [address]- 1683 14 Feb, 2015 [facility] [address] [facility] [id number] [place] [address]- 7036 13 Feb, 2015 [facility] [address] [facility] [id number] [place] [address]- 4445 30 Jan, 2015 [facility] [address] [id number] [place] [address]- 3797 30 Jan, 2015 [facility] [address] [facility] [id number] [place] [address]- 0770 Jan, [facility] [address] [facility] [id number] [place] [address]- 0917 Jan, [facility] [address] [facility] [id number] [place] [address]- 5354 Jan, [facility] [address] [facility] [id number] [place] [address]- 0630 24 Jan, 2015 [facility] [address] [facility] [id number] [place] [address]- 7780 Jan, [facility] [address] [facility] [id number] [place] [address]- 6818 Jan, [facility] [address] [facility] [id number] [place] [address]- 6776 Jan, [facility] [address] [facility] [id number], [place] [address]- 9914 Jan, [facility] [address] [facility] [id number], [place] [address]- 5391 Jan, [facility] [address] [facility] [id number], [place] [address]- 4013 Jan, [facility] [address] [facility] [id number], [place] [address]- 4237 Jan, [facility] [place] [facility] [address] [id number] [place] [address] Jan, [facility] [place] [facility] [address] [id number] [place] [address] Dec, [facility] [place] [facility] [address] [id number] [place] [address] Dec, [facility] [place] [facility] [address] [id number] [place] [address] Nov, [facility] [place] [facility] [address] [id number] [place] [address] Nov, [facility] [place] [facility] [address] [id number] [place] [address] Nov, [facility] [place] [facility] [address] [id number] [place] [address] Nov, [facility] [place] [facility] [address] [id number] [place] [address] Nov, [facility] [place] [facility] [address] [id number] [place] [address] Nov, [facility] [place] [facility] [address] [id number] [place] [address] Nov, [facility] [place] [facility] [address] [id number] [place] [address] Nov, [facility] [place] [facility] [address] [id number] [place] [address] Nov, [facility] [place] [facility] [address] [id number] [place] [address] Nov, [facility] [place] [facility] [address] [id number] [place] [address] Nov, [facility] [place] [facility] [address] [id number] [place] [address] Nov, [facility] [place] [facility] [address] [id number], [place] [address] Nov, [facility] [place] [facility] [address] [id number] [place] [address] Nov, [facility] [place] [facility] [address] [id number] [place] [address] Nov, [facility] [place] [facility] [address] [id number] [place] [address] Nov, [facility] [place] [facility] [address] [id number] [place] [address] Oct, [facility] [place] [facility] [address] [id number] [place] [address] Oct, [facility] [place] [facility] [address] [id number] [place] [address] Sep, [facility] [place] [facility] [address] [id number] [place] [address] Aug, [facility] [place] [facility] [address] [id number] [place] [address] Aug, [facility] [place] [facility] [address] [id number] [place] [address] Aug, [facility] [place] [facility] [address] [id number] [place] [address] Aug, [facility] [place] [facility] [address] [id number], [place] [address] Aug, [facility] [place] [facility] [address] [id number], [place] [address] 264[address] Aug, [facility] [place] [facility] [address] [id number] [place] [address] 1184 Aug, [facility] [place] [facility] [address] [id number] [place] [address] 9611 Aug, [facility] [place] [facility] [address] [id number] [place] [address] 7528 Aug, [facility] [place] [facility] [address] [id number] [place] [address]- 8050 Aug, [facility] [place] [facility] [address] [id number] [place] [address]- 8889 Jun, [facility] [place] [facility] [address] [id number] [place] [address] 0[address] Jun, [facility] [place] [facility] [address] [id number] [place] [address]- 6788 Jun, [facility] [place] [facility] [address] [id number] [place] [address] 3707 Jun, [facility] [place] [facility] [address] [id number] [place] [address]- 7357 Jun, [facility] [place] [facility] [address] [id number] [place] [address]- 5893 Jun, [facility] [place] [facility] [address] [id number] [place] [address]- 4839 Jun, [facility] [place] [facility] [address] [id number] [place] [address]- 6268 Jun, [facility] [place] [facility] [address] [id number] [place] [address]- 2971 Jun, [facility] [place] [facility] [address] [id number] [place] [address]- 5875 Jun, [facility] [place] [facility] [address] [id number] [place] [address] 1938 May, [facility] [place] [facility] [address] [id number] [place] [address]- 3892 May, [facility] [place] [facility] [address] [id number] [place] [address]- 9908 May, [facility] [place] [facility] [address] [id number] [place] [address]- 4626 May, [facility] [place] [facility] [address] [id number] [place] [address]- 6400 May, [facility] [place] [facility] [address] [id number] [place] [address]- 0821 May, 2013 [facility] [place] [facility] [address] [id number] [place] [address]- 2038 May, [facility] [place] [facility] [address] [id number] [place] [address]- 1157 May, 2013 [facility] [place] [facility] [address] [id number] [place] [address]- 4875 May, 2013 [facility] [place] [facility] [address] [id number] [place] [address]- 0190 May, 2013 [facility] [place] [facility] [address] [id number] [place] [address]- 8847 May, 2013 [facility] [place] [facility] [address] [id number] [place] [address] 1937 May, 2013 [facility] [place] [facility] [address] [id number] [place] [address]- 2085 May, [facility] [place] [facility] [address] [id number] [place] [address]- 9638 May, 2013 [facility] [place] [facility] [address] [id number] [place] [address]- 8589 May, [facility] [place] [facility] [address] [id number] [place] [address]- 1464 May, [facility] [place] [facility] [address] [id number] [place] [address]- 4034 May, [facility] [place] [facility] [address] [id number] [place] [address]- 0695 May, [facility] [place] [facility] [address] [id number] [place] [address]- 8602 Apr, [facility] [place] [facility] [address] [id number] [place] [address]- 5319 Apr, [facility] [place] [facility] [address] [id number] [place] [address]- 3437 Apr, [facility] [place] [facility] [address] [id number] [place] [address]- 8909 Apr, [facility] [place] [facility] [address] [id number] [place] [address]- 1281 Apr, [facility] [place] [facility] [address] [id number] [place] [address]- 7326 Apr, [facility] [place] [facility] [address] [id number] [place] [address]- 0739 Apr, [facility] [place] [facility] [address] [id number] [place] [address]- 2058 Apr, [facility] [place] [facility] [address] [id number] [place] [address]- 3462 Apr, [facility] [place] [facility] [address] [id number] [place] [address]- 8530 Apr, [facility] [place] [facility] [address] [id number] [place] [address]- 2539 Apr, [facility] [place] [facility] [address] [id number] [place] [address]- 0626 Apr, [facility] [place] [facility] [address] [id number] [place] [address]- 1822 March, [facility] [place] [facility] [address] [id number] [place] [address]- 4754 March, [facility] [place] [facility] [address] [id number] [place] [address]- 3213 March, [facility] [place] [facility] [address] [id number] [place] [address]- 2410 March, [facility] [place] [facility] [address] [id number] [place] [address]- 2121 March, [facility] [place] [facility] [address] [id number] [place] [address]- 0638 March, [facility] [place] [facility] [address] [id number] [place] [address]- 1367 March, [facility] [place] [facility] [address] [id number] [place] [address]- 4088 March, [facility] [place] [facility] [address] [id number] [place] [address]- 7448 March, [facility] [place] [facility] [address] [id number] [place] [address]- 2521 March, [facility] [place] [facility] [address] [id number] [place] [address]- 2263 March, [facility] [place] [facility] [address] [id number] [place] [address]- 5365 Feb, [facility] [place] [facility] [address] [id number] [place] [address]- 8532 Feb, [facility] [place] [facility] [address] [id number] [place] [address]- 8121 Feb, [facility] [place] [facility] [address] [id number] [place] [address]- 5503 Feb, [facility] [place] [facility] [address] [id number] [place] [address]- 5118 Feb, [facility] [place] [facility] [address] [id number] [place] [address]- 2189 Feb, [facility] [place] [facility] [address] [id number] [place] [address]- 6328 Feb, [facility] [place] [facility] [address] [id number] [place] [address]- 1807 Feb, [facility] [place] [facility] [address] [id number] [place] [address]- 0799 Feb, [facility] [place] [facility] [address] [id number] [place] [address]- 0116 Feb, [facility] [place] [facility] [address] [id number] [place] [address]- 3836 Feb, [facility] [place] [facility] [address] [id number] [place] [address]- 2523 Feb, [facility] [place] [facility] [address] [id number] [place] [address]- 3007 Feb, [facility] [place] [facility] [address] [id number] [place] [address]- 8882 Feb, [facility] [place] [facility] [address] [id number] [place] [address]- 9936 Feb, [facility] [place] [facility] [address] [id number] [place] [address]- 2905 Feb, [facility] [place] [facility] [address] [id number] [place] [address]- 8647 Feb, [facility] [place] [facility] [address] [id number] [place] [address]- 3555 Feb, [facility] [place] [facility] [address] [id number] [place] [address]- 1775 Feb, [facility] [place] [facility] [address] [id number] [place] [address]- 5421 Feb, [facility] [place] [facility] [address] [id number] [place] [address]- 4984 Jan, [facility] [place] [facility] [address] [id number] [place] [address]- 5554 Jan, [facility] [place] [facility] [address] [id number], [place] [address]- 2236 Jan, [facility] [place] [facility] [address] [id number] [place] [address]- 9395 Jan, [facility] [place] [facility] [address] [id number] [place] [address]- 4760 Jan, [facility] [place] [facility] [address] [id number] [place] [address]- 8422 Jan, [facility] [place] [facility] [address] [id number] [place] [address]- 3081 18 Jan, 2014 [facility] [place] [facility] [address] [id number] [place] [address]- 6267 18 Jan, 2014 [facility] [place] [facility] [address] [id number] [place] [address]- 0166 14 Jan, 2014 [facility] [place] [facility] [address] [id number] [place] [address]- 1265 14 Jan, 2014 [facility] [place] [facility] [address] [id number] [place] [address]- 3313 11 Jan, 2014 [facility] [place] [facility] [address] [id number] [place] [address]- 8152 11 Jan, 2014 [facility] [place] [facility] [address] [facility] [id number] [place] [address]- 9736 05 Jan, 2014 [facility] [place] [facility] [address] [facility] [id number] [place] [address]- 1101 05 Jan, 2014 [facility] [place] [facility] [address] [facility] [id number] [place] [address]- 6564 Dec, [facility] [place] [facility] [address] [id number] [place] [address]- 1405 Dec, [facility] [place] [facility] [address] [facility] [id number] [place] [address]- 9840 Dec, [facility] [place] [facility] [address] [facility] [id number] [place] [address]- 6820 Dec, [facility] [place] [facility] [address] [facility] [id number] [place] [address]- 4820 Dec, [facility] [place] [facility] [address] [id number] [place] [address] Dec, [facility] [place] [facility] [address] [facility] [id number] [place] [address] Dec, [facility] [place] [facility] [address] [facility] [id number] [place] [address]- 4582 Dec, [facility] [address] [id number] [place] [address]- 8299 Dec, [facility] [place] [facility] [address] [id number] [place] [address]- 8266 Nov, [facility] [place] [facility] [address] [facility] [id number] [place] [address]- 0035 Nov, [facility] [place] [facility] [address] [id number] [place] [address]- 7158 Nov, [facility] [place] [facility] [address] [id number] [place] [address]- 4555 Nov, [facility] [place] [facility] [address] [id number] [place] [address]- 8416 Oct, [facility] [place] [facility] [address] [id number] [place] [address]- 5801 Oct, [facility] [place] [facility] [address] [id number] [place] [address]- 1687 Oct, [facility] [place] [facility] [address] [id number] [place] [address]- 8280 Oct, [facility] [place] [facility] [address] [id number] [place] [address]- 1435 Oct, [facility] [place] [facility] [address] [id number] [place] [address]- 7106 Oct, [facility] [place] [facility] [address] [id number], [place] [address]- 9505 Oct, [facility] [place] [facility] [address] [id number] [place] [address]- 8810 Oct, [facility] [place] [facility] [address] [id number] [place] [address]- 9248 Oct, [facility] [place] [facility] [address] [id number] [place] [address]- 2233 Oct, [facility] [place] [facility] [address] [id number] [place] [address]- 5351 19 Oct, 2012 [facility] [address] [id number] [place] [address]- 1780 18 Oct, 2013 [facility] [address] [id number] [place] 1754 18 Oct, 2013 [facility] [address] [id number] [place] 4543 17 Oct, 2013 [facility] [address] [id number] [place] [address]- 1805 17 Oct, 2013 [facility] [address] [id number] [place] [address]- 2477 17 Oct, 2013 [facility] [address] [id number] [place] [address]- 5830 17 Oct, 2013 [facility] [address] [id number] [place] [address]- 8697 17 Oct, 2013 [facility] [address] [id number] [place] [address]- 0929 17 Oct, 2013 [facility] [address] [id number] [place] [address]- 9485 11 Oct, 2013 [facility] [address] [id number] [place] [address]- 4844 11 Oct, 2013 [facility] [address] [id number] [place] [address]- 6993 27 Sep, 2013 [facility] [address] [id number] [place] [address]- 8914 27 Sep, 2013 [facility] [address] [id number] [place] [address]- 3000 19 Sep, 2013 [facility] [address] [id number] [place] [address]- 8557 19 Sep, 2013 [facility] [address] [id number] [place] [address]- 4453 18 Sep, 2013 [facility] [place] [facility] [address] [id number] [place] [address]- 6608 14 Sep, 2013 [facility] [place] [facility] [address] [id number] [place] [address]- 8842 14 Sep, 2013 [facility] [place] [facility] [address] [id number] [place] [address]- 0168 Sep, [facility] [place] [facility] [address] [id number] [place] [address]- 4316 Sep, [facility] [place] [facility] [address] [id number] [place] [address]- 9827 Sep, [facility] [place] [facility] [address] [id number] [place] [address]- 0844 Sep, [facility] [place] [facility] [address] [id number] [place] [address]- 6161 Sep, [facility] [place] [facility] [address] [id number] [place] [address]- 4125 Aug, [facility] [place] [facility] [address] [id number] [place] [address]- 2585 Aug, [facility] [place] [facility] [address] [id number], [place] [address]- 9326 Aug, [facility] [place] [facility] [address] [id number], [place] [address]- 7501 Aug, [facility] [place] [facility] [address] [id number], [place] [address]- 4943 Aug, [facility] [place] [facility] [address] [id number], [place] [address]- 4053 Aug, [facility] [place] [facility] [address] [id number], [place] [address]- 2899 Aug, [facility] [place] [facility] [address] [id number], [place] [address]- 0014 Aug, [facility] [place] [facility] [address] [id number], [place] [address]- 5543 16 Aug, 2013 [facility] [place] [facility] [address] [id number] [place] [address]- 2003 16 Aug, 2013 [facility] [place] [facility] [address] [id number] [place] [address]- 2426 Aug, [facility] [place] [facility] [address] [id number] [place] [address]- 0385 10 Aug, 2013 [facility] [place] [facility] [address] [id number] [place] [address]- 8819 08 Aug, 2013 [facility] [place] [facility] [address] [id number] [place] 8266 Aug, [facility] [place] [facility] [address] [id number] [place] [address]- 2357 Aug, [facility] [place] [facility] [address] [id number] [place] [address]- 1385 Aug, [facility] [place] [facility] [address] [id number] [place] [address]- 4312 Aug, [facility] [place] [facility] [address] [id number] [place] [address]- 1817 Jul, [facility] [place] [facility] [address] [id number] [place] [address]- 3680 Jun, [facility] [place] [facility] [address] [id number] [place] [address]- 7706 Jun, [facility] [place] [facility] [address] [id number] [place] [address]- 0131 May, [facility] [place] [facility] [address] [id number] [place] [address]- 1393 May, [facility] [place] [facility] [address] [id number] [place] [address]- 4553 Apr, [facility] [place] [facility] [address] [id number] [place] [address]- 2232 Apr, [facility] [place] [facility] [address] [id number] [place] [address]- 4258 21 Apr, 2013 [facility] [address] [id number] [place] [address]- 3069 Apr, [facility] [place] [facility] [address] [id number] [place] [address]- 7245 18 Apr, 2013 [facility] [address] [id number] [place] [address]- 1393 10 Apr, 2013 [facility] [place] [facility] [address] [id number] [place] [address]- 8625 07 Apr, 2013 [facility] [address] [id number] [place] [address]- 4884 07 Apr, 2013 [facility] [address] [id number] [place] [address]- 6610 06 Apr, 2013 [facility] [address] [id number] [place] [address]- 4179 Apr, [facility] [address] [id number] [place] [address]- 2793 Apr, [facility] [place] [facility] [address] [id number] [place] [address]- 4240 March, [facility] [address] [id number] [place] [address]- 6178 March, [facility] [place] [facility] [address] [id number] [place] [address]- 4552 March, [facility] [place] [facility] [address] [id number] [place] [address]- 2976 March, [facility] [place] [facility] [address] [id number] [place] [address]- 1943 March, [facility] [place] [facility] [address] [id number] [place] [address]- 1573 Feb, [facility] [place] [facility] [address] [id number] [place] [address]- 8973 Feb, [facility] [address] [id number] [place] [address]- 8268 29 Jan, 2013 [facility] [place] [facility] [address] [id number] [place] [address]- 2659 29 Jan, 2013 [facility] [place] [facility] [address] [id number] [place] [address]- 1194 18 Jan, 2013 [facility] [place] [facility] [address] [id number] [place] [address]- 4741 15 Jan, 2013 [facility] [address] [id number] [place] [address]- 7095 06 Jan, 2013 [facility] [place] [facility] [address] [id number] [place] [address]- 6623 Dec, [facility] [place] [facility] [address] [id number] [place] [address]- 7856 Dec, [facility] [place] [facility] [address] [id number] [place] [address]- 3657 Nov, [facility] [place] [facility] [address] [id number] [place] [address]- 3532 Nov, [facility] [place] [facility] [address] [id number] [place] [address]- 0895 18 Nov, 2012 [facility] [place] [facility] [address] [id number], [place] [address]- 5211 16 Nov, 2012 [facility] [place] [facility] [address] [id number], [place] [address]- 2435 15 Nov, 2012 [facility] [place] [facility] [address] [id number] [place] [address]- 7299 14 Nov, 2012 [facility] [place] [facility] [address] [id number] [place] [address]- 6717 14 Nov, 2012 [facility] [place] [facility] [address] [id number] [place] [address] 11 Nov, 2012 [facility] [place] [facility] [address] [id number] [place] [address] Nov, [facility] [address] [id number] [place] [address] Nov, [facility] [place] [facility] [address] [id number] [place] [address] Nov, [facility] [address] [id number] [place] [address] Oct, [facility] [place] [facility] [address] [id number] [place] [address] Oct, [facility] [place] [facility] [address] [id number] [place] [address] Sep, [facility] [place] [facility] [address] [id number] [place] [address] Sep, [facility] [address] [id number] [place] [address] Sep, [facility] [place] [facility] [address] [id number] [place] [address] Sep, [facility] [place] [facility] [address] [id number] [place] [address] Sep, [facility] [place] [facility] [address] [facility] [id number] [place] [address] Sep, [facility] [place] [facility] [address] [id number] [place] [address] Sep, [facility] [place] [facility] [address] [id number] [place] [address]- [address] Sep, [facility] [place] [facility] [address] [id number] [place] [address] Sep, [facility] [place] [facility] [address] [id number] [place] [address] Sep, [facility] [place] [facility] [address] [id number] [place] [address] Sep, [facility] [place] [facility] [address] [id number] [place] [address] Sep, [facility] [place] [facility] [address] [id number] [place] [address] Sep, [facility] [place] [facility] [address] [id number] [place] [address]- [address] Sep, [facility] [place] [facility] [address] [id number] [place] [address], [place] [address] Aug, [facility] [place] [facility] [address] [id number] [place] [address] Aug, [facility] [place] [facility] [address] [id number] [place] [address] Aug, [facility] [place] [facility] [address] [id number] [place] [address] Aug, [facility] [place] [facility] [address] [id number] [place] [address] Aug, [facility] [place] [facility] [address] [id number] [place] [address] Aug, [facility] [place] [facility] [address] [id number] [place] [address] Aug, [facility] [place] [facility] [address] [id number] [place] [address] Aug, [facility] [place] [facility] [address] [id number], [place] [address] Aug, [facility] [place] [facility] [address] [id number] [place] [address] Aug, [facility] [place] [facility] [address] [id number] [place] [address] Aug, [facility] [place] [facility] [address] [id number] [place] [address] Aug, [facility] [place] [facility] [address] [id number] [place] [address] Aug, [facility] [id number] [address] Aug, [facility] [id number] [address] Aug, [facility] [id number] [address] Aug, [facility] [id number] [place] [address]- [address] Aug, [facility] [id number], [place] [address] Jul, [facility] [id number] [place] [address] Jun, [facility] [id number] [place] [address]- [address] Aug, [facility] [id number] [address] Aug, [facility] [id number] [address] Aug, IMMUNIZATIONS No Known Immunizations SOCIAL HISTORY [...] surgery 08/16/2016 Hospitalization History Chest pain, CAD, HTN-[facility] 05/14/17 Hospitalization History chest pain, edema-[facility] 05/04/18
[2018-09-08 15:26] LABS: BASOPHILS % (AUTO) 0 % (0-10); EOSINOPHILS # (AUTO) 0.2 10^3/uL (0.0-0.3); EOSINOPHILS % (AUTO) 2 % (0-10); HEMATOCRIT 40 % (35-52); HEMOGLOBIN 12.4 G/DL (11.5-16.0); LYMPHOCYTES # (AUTO) 1.2 X 10^3 (1.0-4.0); LYMPHOCYTES % (AUTO) 13 % (12-44); MEAN CORPUSCULAR HEMOGLOBIN 30 PG (25-34); MEAN CORPUSCULAR HGB CONC 31 G/DL (32-36); MEAN CORPUSCULAR VOLUME 96 FL (80-99); MEAN PLATELET VOLUME 9.4 FL (7.4-10.4); MONOCYTES # (AUTO) 0.5 X 10^3 (0.0-1.0); MONOCYTES % (AUTO) 6 % (0-12); NEUTROPHILS # (AUTO) 7.2 X 10^3 (1.8-7.8); NEUTROPHILS % (AUTO) 79 % (42-75); PLATELET COUNT 239 10^3/uL (130-400); RED CELL DISTRIBUTION WIDTH 14.5 % (10.0-14.5); WHITE BLOOD COUNT 9.1 10^3/uL (4.3-11.0)
--- OUTSIDE RECORDS SUMMARY | 2018-09-08 15:43 | XMS REPORT | Continuity of Care Document ---
Author Author [facility] Address Unknown Phone Unavailable Allergies Active Description Code Type Severity Reaction Onset Reported/Identified Relationship to Patient Clinical Status Yes trimethoprim [id number] Drug Allergy Unknown N/A 04/23/2006 Yes Bactrim Drug Allergy 08/10/2009 Yes Bactrim Drug Allergy N/A N/A 08/10/2009 Yes sulfamethoxazole [id number] Drug Allergy Unknown N/A 11/14/2017 Medications There is no data. Problems Date Dx Coded Attending Type Code Diagnosis Diagnosed By 10/19/1455 SVETA SAMS MD, Ot E66.01 MORBID (SEVERE) OBESITY DUE TO EXCESS CA 10/19/1455 SVETA SAMS MD, Ot 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 ULC 10/19/1455 [...] CHI MD 465.9 UPPER RESPIRATORY INFECTION 08/10/2009 DOI CHI MD 692.9 CONTACT DERMATITIS AND OTHER [...] APRN 465.9 UPPER RESPIRATORY INFECTION 08/10/2009 WILVER JINRIKSHA DRIVER, AAKASH T 692.9 CONTACT DERMATITIS AND OTHER [place] UNSPECIFIED CAUSE 08/10/2009 MADL JINRIKSHA DRIVER, PIPPA L 465.9 UPPER RESPIRATORY INFECTION 08/10/2009 MADL JINRIKSHA DRIVER, PIPPA L 692.9 CONTACT DERMATITIS AND OTHER [place] UNSPECIFIED CAUSE 08/10/2009 WISEMAN DO, MICKEY K 465.9 UPPER RESPIRATORY INFECTION 08/10/2009 WISEMAN DO, MICKEY K 692.9 CONTACT DERMATITIS AND OTHER [place] UNSPECIFIED CAUSE 08/10/2009 WISEMAN DO, MICKEY K 465.9 UPPER RESPIRATORY INFECTION 08/10/2009 WISEMAN DO, MICKEY K 692.9 CONTACT DERMATITIS AND OTHER [place] UNSPECIFIED CAUSE 08/10/2009 RAFAEL JINRIKSHA DRIVER, NICKOLAS R 465.9 UPPER RESPIRATORY INFECTION 08/10/2009 RAFAEL JINRIKSHA DRIVER, NICKOLAS R 692.9 CONTACT DERMATITIS AND OTHER [place] UNSPECIFIED CAUSE 08/10/2009 JORDEN MEZA MD 465.9 ACUTE UPPER RESPIRATORY INFECTIONS OF UNSPECIFIED SITE 08/10/2009 JORDEN MEZA MD 692.9 CONTACT DERMATITIS AND OTHER [place] UNSPECIFIED CAUSE 08/10/2009 WISEMAN DO, MICKEY K 465.9 UPPER RESPIRATORY INFECTION 08/10/2009 WISEMAN DO, MICKEY K 692.9 CONTACT DERMATITIS AND OTHER [place] UNSPECIFIED CAUSE 08/10/2009 MADL JINRIKSHA DRIVER, PIPPA L 465.9 UPPER RESPIRATORY INFECTION 08/10/2009 MADL JINRIKSHA DRIVER, PIPPA L 692.9 CONTACT DERMATITIS AND OTHER [place] UNSPECIFIED CAUSE 08/10/2009 MADL JINRIKSHA DRIVER, PIPPA L 465.9 UPPER RESPIRATORY INFECTION 08/10/2009 MADL JINRIKSHA DRIVER, PIPPA L 692.9 CONTACT DERMATITIS AND OTHER [...] MEZA MD 593.9 RENAL INSUFFICIENCY 08/17/2012 CARMELLA JINRIKSHA DRIVER, INOCENTE S 244.9 HYPOTHYROIDISM 08/17/2012 CARMELLA JINRIKSHA DRIVER, INOCENTE S 272.4 HYPERLIPIDEMIA 08/17/2012 CARMELLA JINRIKSHA DRIVER, INCOENTE S 278.00 OBESITY 08/17/2012 CARMELLA JINRIKSHA DRIVER, INOCENTE S 296.90 EPISODIC MOOD DISORDERS 08/17/2012 CARMELLA JINRIKSHA DRIVER, INOCENTE S 338.29 CHRONIC PAIN 08/17/2012 CARMELLA JINRIKSHA DRIVER, INOCENTE S 593.9 RENAL INSUFFICIENCY 08/17/2012 WISEMAN [...] DO, MICKEY K 593.9 RENAL INSUFFICIENCY 08/17/2012 AAKSAH PETTIT APRN 244.9 HYPOTHYROIDISM 08/17/2012 AAKASH PETTIT [...] Castrejon T 593.9 RENAL INSUFFICIENCY 08/17/2012 MADL JINRIKSHA DRIVER, PIPPA L 244.9 HYPOTHYROIDISM 08/17/2012 MADL JINRIKSHA DRIVER, PIPPA L 272.4 HYPERLIPIDEMIA 08/17/2012 MADL JINRIKSHA DRIVER, PIPPA L 278.00 OBESITY 08/17/2012 MADL JINRIKSHA DRIVER, PIPPA L 296.90 EPISODIC MOOD DISORDERS 08/17/2012 MADL JINRIKSHA DRIVER, PIPPA L 338.29 CHRONIC PAIN 08/17/2012 MADL JINRIKSHA DRIVER, PIPPA L 593.9 RENAL INSUFFICIENCY 08/17/2012 WISEMAN [...] MICKEY K 593.9 RENAL INSUFFICIENCY 08/17/2012 RAFAEL JINRIKSHA DRIVER, NICKOLAS R 244.9 HYPOTHYROIDISM 08/17/2012 RAFAEL JINRIKSHA DRIVER, NICKOLAS R 272.4 HYPERLIPIDEMIA 08/17/2012 RAFAEL JINRIKSHA DRIVER, NICKOLAS R 278.00 OBESITY 08/17/2012 RAFAEL JINRIKSHA DRIVER, NICKOLAS R 296.90 EPISODIC MOOD DISORDERS 08/17/2012 RAFAEL JINRIKSHA DRIVER, NICKOLAS R 338.29 CHRONIC PAIN 08/17/2012 RAFAEL JINRIKSHA DRIVER, NICKOLAS R 593.9 RENAL INSUFFICIENCY 08/17/2012 JORDEN [...] MICKEY K 593.9 RENAL INSUFFICIENCY 08/17/2012 MADL JINRIKSHA DRIVER, PIPPA L 244.9 HYPOTHYROIDISM 08/17/2012 MADL JINRIKSHA DRIVER, PIPPA L 272.4 HYPERLIPIDEMIA 08/17/2012 MADL JINRIKSHA DRIVER, PIPPA L 278.00 OBESITY 08/17/2012 MADL JINRIKSHA DRIVER, PIPPA L 296.90 EPISODIC MOOD DISORDERS 08/17/2012 MADL JINRIKSHA DRIVER, PIPPA L 338.29 CHRONIC PAIN 08/17/2012 MADL JINRIKSHA DRIVER, PIPPA L 593.9 RENAL INSUFFICIENCY 08/17/2012 MADL JINRIKSHA DRIVER, PIPPA L 244.9 HYPOTHYROIDISM 08/17/2012 MADL JINRIKSHA DRIVER, PIPPA L 272.4 HYPERLIPIDEMIA 08/17/2012 MADL JINRIKSHA DRIVER, PIPPA L 278.00 OBESITY 08/17/2012 MADL JINRIKSHA DRIVER, PIPPA L 296.90 EPISODIC MOOD DISORDERS 08/17/2012 MADL JINRIKSHA DRIVER, PIPPA L 338.29 CHRONIC PAIN 08/17/2012 MADL JINRIKSHA DRIVER, PIPPA L 593.9 RENAL INSUFFICIENCY 09/02/2012 Ot [...] JORDEN MEZA MD 786.2 COUGH 11/16/2012 EARLY JINRIKSHA DRIVER, JAY R 466.0 BRONCHITIS, ACUTE 11/16/2012 EARLY JINRIKSHA DRIVER, JAY R 786.07 WHEEZING 11/16/2012 EARLY JINRIKSHA DRIVER, JAY R 786.2 cough 11/16/2012 466.0 BRONCHITIS, ACUTE 11/16/2012 786.07 WHEEZING 11/16/2012 786.2 cough 11/16/2012 EARLY JINRIKSHA DRIVER, JAY R 466.0 BRONCHITIS, ACUTE 11/16/2012 EARLY JINRIKSHA DRIVER, JAY R 786.07 WHEEZING 11/16/2012 EARLY JINRIKSHA DRIVER, JAY R 786.2 cough 11/16/2012 466.0 BRONCHITIS, [...] DIO CHI MD 786.2 cough 11/16/2012 SHARATH JINRIKSHA DRIVER, JAY R 466.0 BRONCHITIS, ACUTE 11/16/2012 SHARATH [...] APRN T 466.0 BRONCHITIS, ACUTE 11/16/2012 WILVER JINRIKSHA DRIVER, AAKASH T 786.07 WHEEZING 11/16/2012 WILVER JINRIKSHA DRIVER, AAKASH T 786.2 COUGH 11/16/2012 WILVER [place] AAKASH T 466.0 BRONCHITIS, ACUTE 11/16/2012 WILVER JINRIKSHA DRIVER AAKASH T 786.07 WHEEZING 11/16/2012 WILVER JINRIKSHA DRIVER, AAKASH T 786.2 COUGH 11/16/2012 MADL JINRIKSHA DRIVER, PIPPA L 466.0 BRONCHITIS, ACUTE 11/16/2012 MADL JINRIKSHA DRIVER, PIPPA L 786.07 WHEEZING 11/16/2012 MADL JINRIKSHA DRIVER, PIPPA L 786.2 COUGH 11/16/2012 WISEMAN DO, MICKEY K 466.0 BRONCHITIS, ACUTE 11/16/2012 WISEMAN DO, MICKEY K 786.07 WHEEZING 11/16/2012 WISEMAN DO, MICKEY K 786.2 COUGH 11/16/2012 WISEMAN DO, MICKEY K 466.0 BRONCHITIS, ACUTE 11/16/2012 WISEMAN DO, MICKEY K 786.07 WHEEZING 11/16/2012 WISEMAN DO, MICKEY K 786.2 COUGH 11/16/2012 RAFAEL JINRIKSHA DRIVER, NICKOLAS R 466.0 BRONCHITIS, ACUTE 11/16/2012 RAFAEL JINRIKSHA DRIVER, NICKOLAS R 786.07 WHEEZING 11/16/2012 RAFAEL JINRIKSHA DRIVER, NICKOLAS R 786.2 COUGH 11/16/2012 WISEMAN DO, MICKEY K 466.0 BRONCHITIS, ACUTE 11/16/2012 WISEMAN DO, MICKEY K 786.07 WHEEZING 11/16/2012 WISEMAN DO, MICKEY K 786.2 COUGH 11/16/2012 MADL JINRIKSHA DRIVER, PIPPA L 466.0 BRONCHITIS, ACUTE 11/16/2012 MADL JINRIKSHA DRIVER, PIPPA L 786.07 WHEEZING 11/16/2012 MADL JINRIKSHA DRIVER, PIPPA L 786.2 COUGH 11/16/2012 MADL JINRIKSHA DRIVER, PIPPA L 466.0 BRONCHITIS, ACUTE 11/16/2012 MADL JINRIKSHA DRIVER, IPPPA L 786.07 WHEEZING 11/16/2012 MADL JINRIKSHA DRIVER, PIPPA L 786.2 COUGH 03/14/2013 380.4 CERUMEN [...] CHI MD 477.9 ALLERGIC RHINITIS 03/14/2013 EARLY JINRIKSHA DRIVER, JAY R 380.4 CERUMEN IMPACTION 03/14/2013 EARLY JINRIKSHA DRIVER, JAY R 477.9 ALLERGIC RHINITIS 03/14/2013 WISEMAN DO, MICKEY K 380.4 CERUMEN IMPACTION 03/14/2013 WISEMAN DO, MICKEY K 477.9 ALLERGIC RHINITIS 03/14/2013 ALON HWITE, DIO Castro 380.4 CERUMEN IMPACTION 03/14/2013 ALON WHITE, DIO Castro 477.9 ALLERGIC RHINITIS 03/14/2013 WISEMAN DO, MICKEY K 380.4 CERUMEN IMPACTION 03/14/2013 WISEMAN DO, MICKEY K 477.9 ALLERGIC RHINITIS 03/14/2013 WISEMAN DO, MICKEY K 380.4 CERUMEN IMPACTION 03/14/2013 WISEMAN DO, MICKEY K 477.9 ALLERGIC RHINITIS 03/14/2013 DERRICK WHITE, JORDEN 380.4 CERUMEN IMPACTION 03/14/2013 DERRICK WHITE, JORDEN 477.9 ALLERGIC RHINITIS 03/14/2013 CARMELLA JINRIKSHA DRIVER, INOCENTE S 380.4 CERUMEN IMPACTION 03/14/2013 CARMELLA JINRIKSHA DRIVER, INOCENTE S 477.9 ALLERGIC RHINITIS 03/14/2013 WISEMAN [...] MICKEY K 477.9 ALLERGIC RHINITIS 03/14/2013 WILVER JINRIKSHA DRIVER, AAKASH T 380.4 CERUMEN IMPACTION 03/14/2013 WILVER JINRIKSHA DRIVER, AAKASH T 477.9 ALLERGIC RHINITIS 03/14/2013 WILVER JINRIKSHA DRIVER, AAKASH T 380.4 CERUMEN IMPACTION 03/14/2013 WILVER JINRIKSHA DRIVER, AAKASH T 477.9 ALLERGIC RHINITIS 03/14/2013 MADL JINRIKSHA DRIVER, PIPPA L 380.4 CERUMEN IMPACTION 03/14/2013 MADL JINRIKSHA DRIVER, PIPPA L 477.9 ALLERGIC RHINITIS 03/14/2013 WISEMAN DO, MICKEY K 380.4 CERUMEN IMPACTION 03/14/2013 WISEMAN DO, MICKEY K 477.9 ALLERGIC RHINITIS 03/14/2013 WISEMAN DO, MICKEY K 380.4 CERUMEN IMPACTION 03/14/2013 WISEMAN DO, MICKEY K 477.9 ALLERGIC RHINITIS 03/14/2013 RAFAEL JINRIKSHA DRIVER, NICKOLAS R 380.4 CERUMEN IMPACTION 03/14/2013 RAFAEL JINRIKSHA DRIVER, NICKOLAS R 477.9 ALLERGIC RHINITIS 03/14/2013 WISEMAN DO, MICKEY K 380.4 CERUMEN IMPACTION 03/14/2013 WISEMAN DO, MICKEY K 477.9 ALLERGIC RHINITIS 03/14/2013 MADL JINRIKSHA DRIVER, PIPPA L 380.4 CERUMEN IMPACTION 03/14/2013 MADL JINRIKSHA DRIVER, PIPPA L 477.9 ALLERGIC RHINITIS 03/14/2013 MADL JINRIKSHA DRIVER, PIPPA L 380.4 CERUMEN IMPACTION 03/14/2013 MADL JINRIKSHA DRIVER, PIPPA L 477.9 ALLERGIC RHINITIS 04/25/2013 327.23 [...] K 327.23 SLEEP APNEA OBSTRUCTIVE 04/25/2013 JUDIE JINRIKSHA DRIVERMONTANA CastrejonA L 327.23 SLEEP APNEA OBSTRUCTIVE 04/25/2013 [...] CELLULITIS AND ABSCESS OF TRUNK 05/21/2013 RAFAEL JINRIKSHA DRIVER, NICKOLAS R 333.94 RESTLESS LEGS SYNDROME (RLS) 05/21/2013 RAFAEL JINRIKSHA DRIVER, NICKOLAS R 682.2 CELLULITIS AND ABSCESS OF TRUNK 05/21/2013 WISEMAN DO MICKEY K 333.94 RESTLESS LEGS SYNDROME (RLS) 05/21/2013 WISEMAN DO, MICKEY K 682.2 CELLULITIS AND ABSCESS OF TRUNK 05/21/2013 MADL JINRIKSHA DRIVER, PIPPA L 333.94 RESTLESS LEGS SYNDROME (RLS) 05/21/2013 MADL JINRIKSHA DRIVER, PIPPA L 682.2 CELLULITIS AND ABSCESS OF TRUNK 05/21/2013 MADL JINRIKSHA DRIVER, PIPPA L 333.94 RESTLESS LEGS SYNDROME (RLS) 05/21/2013 MADL JINRIKSHA DRIVER, PIPPA L 682.2 CELLULITIS AND ABSCESS OF [...] APRN T 782.0 TINGLING (PARESTHESIA) 09/04/2013 MADDIEL JINRIKSHA DRIVER, PIPPA L 782.0 TINGLING (PARESTHESIA) 09/04/2013 WISEMAN DO, MICKEY K 782.0 TINGLING (PARESTHESIA) 09/04/2013 WISEMAN DO, MICKEY K 782.0 TINGLING (PARESTHESIA) 09/04/2013 RAFAEL PINTO NICKOLAS R 782.0 TINGLING (PARESTHESIA) 09/04/2013 WISEMAN DO, MICKEY K 782.0 TINGLING (PARESTHESIA) 09/04/2013 MADL JINRIKSHA DRIVER, PIPPA L 782.0 TINGLING (PARESTHESIA) 09/04/2013 MADL JINRIKSHA DRIVER, PIPPA L 782.0 TINGLING (PARESTHESIA) 10/02/2013 JAY [...] AND UNSPECIFIED SITES WITHOUT INFECTION 10/02/2013 RAFAEL JINRIKSHA DRIVERFLORENCIONICKOLAS R 919.4 INSECT BITE NONVENOMOUS OF OTHER MULTIPLE AND UNSPECIFIED SITES WITHOUT INFECTION 10/02/2013 WISEMAN DO, MICKEY K 919.4 INSECT BITE NONVENOMOUS OF OTHER MULTIPLE AND UNSPECIFIED SITES WITHOUT INFECTION 10/02/2013 MADL JINRIKSHA DRIVER, PIPPA L 919.4 INSECT BITE NONVENOMOUS OF OTHER MULTIPLE AND UNSPECIFIED SITES WITHOUT INFECTION 10/02/2013 MADL JINRIKSHA DRIVER, PIPPA L 919.4 INSECT BITE NONVENOMOUS OF [...] 682.6 CELLULITIS OF THE LEG 10/16/2013 MADDIEL JINRIKSHA DRIVER, PIPPA L 300.00 anxiety 10/16/2013 MADL JINRIKSHA DRIVER, PIPPA L 682.6 CELLULITIS OF THE LEG [...] 682.6 CELLULITIS OF THE LEG 10/16/2013 MADL JINRIKSHA DRIVER, PIPPA L 300.00 anxiety 10/16/2013 MADL JINRIKSHA DRIVER, PIPPA L 682.6 CELLULITIS OF THE LEG 10/16/2013 JUDIE JINRIKSHA DRIVER, PIPPA L 300.00 anxiety 10/16/2013 JUDIE JINRIKSHA DRIVER, PIPPA L 682.6 CELLULITIS OF THE LEG [...] 459.81 VENOUS (PERIPHERAL) INSUFFICIENCY UNSPECIFIED 11/07/2013 JUDIE JINRIKSHA DRIVER, PIPPA L 459.81 VENOUS (PERIPHERAL) INSUFFICIENCY UNSPECIFIED 11/07/2013 MADL JINRIKSHA DRIVER, PIPPA L 459.81 VENOUS (PERIPHERAL) INSUFFICIENCY UNSPECIFIED 12/04/2013 SVETA PORTER MD Ot 401.9 HYPERTENSION NOS 12/04/2013 SVETA PORTER MD Ot 414.01 CORONARY ATHEROSCLEROSIS OF [place] CORON 12/04/2013 SVETA PORTER MD Ot 717.40 [...] PINTO AAKASH T 782.3 EDEMA 01/08/2014 JUDIE JINRIKSHA DRIVER, PIPPA L 782.3 EDEMA 01/08/2014 WISEMAN DO, MICKEY K 782.3 EDEMA 01/08/2014 WISEMAN DO, IMCKEY K 782.3 EDEMA 01/08/2014 RAFAEL PINTO NICKOLAS R 782.3 EDEMA 01/08/2014 WISEMAN DO, MICKEY K 782.3 EDEMA 01/08/2014 MADArjun JINRIKSHA DRIVER, PIPPA L 782.3 EDEMA 01/08/2014 MADL JINRIKSHA DRIVER, PIPPA L 782.3 EDEMA 01/22/2014 DIO CHI [...] K 786.05 shortness of breath 01/22/2014 WILVER JINRIKSHA DRIVER, AAKASH T 682.9 CELLULITIS OF EXTREMITY 01/22/2014 WILVER JINRIKSHA DRIVER, AAKASH T 786.05 shortness of breath 01/22/2014 WILVER JINRIKSHA DRIVER, AAKASH T 682.9 CELLULITIS OF EXTREMITY 01/22/2014 WILVER JINRIKSHA DRIVER, AAKASH T 786.05 shortness of breath 01/22/2014 MADL JINRIKSHA DRIVER, PIPPA L 682.9 CELLULITIS OF EXTREMITY 01/22/2014 MADL JINRIKSHA DRIVER, PIPPA L 786.05 SHORTNESS OF BREATH 01/22/2014 WISEMAN DO, MICKEY K 682.9 CELLULITIS OF EXTREMITY 01/22/2014 WISEMAN DO, MICKEY K 786.05 SHORTNESS OF BREATH 01/22/2014 WISEMAN DO, MICKEY K 682.9 CELLULITIS OF EXTREMITY 01/22/2014 WISEMAN DO, MICKEY K 786.05 SHORTNESS OF BREATH 01/22/2014 RAFAEL JINRIKSHA DRIVER, NICKOLAS R 682.9 CELLULITIS OF EXTREMITY 01/22/2014 RAFAEL JINRIKSHA DRIVER, NICKLOAS R 786.05 SHORTNESS OF BREATH 01/22/2014 WISEMAN DO, MICKEY K 682.9 CELLULITIS OF EXTREMITY 01/22/2014 WISEMAN DO, MICKEY K 786.05 SHORTNESS OF BREATH 01/22/2014 MADL JINRIKSHA DRIVER, PIPPA L 682.9 CELLULITIS OF EXTREMITY 01/22/2014 MADL JINRIKSHA DRIVER, PIPPA L 786.05 SHORTNESS OF BREATH 01/22/2014 MADL JINRIKSHA DRIVER, PIPPA L 682.9 CELLULITIS OF EXTREMITY 01/22/2014 MADL JINRIKSHA DRIVER, PIPPA L 786.05 SHORTNESS OF BREATH 02/17/2014 WISEMAN DO, MICKEY K 461.9 SINUSITIS ACUTE 02/17/2014 WISMEAN DO, MICKEY K 466.0 BRONCHITIS, ACUTE 02/17/2014 WISEMAN DO, MICKYE K 461.9 SINUSITIS ACUTE 02/17/2014 WISEMAN DO, MICKEY K 466.0 BRONCHITIS, ACUTE 02/17/2014 WISEMAN DO, MICKEY K 461.9 SINUSITIS ACUTE 02/17/2014 WISEMAN DO, MICKEY K 466.0 BRONCHITIS, ACUTE 02/17/2014 AAKASH PETTIT APRN T 461.9 SINUSITIS ACUTE 02/17/2014 AAKASH PETTIT APRN T 466.0 BRONCHITIS, ACUTE 02/17/2014 WILVER JINRIKSHA DRIVERAAKASH T 461.9 SINUSITIS ACUTE 02/17/2014 WILVER JINRIKSHA DRIVERAAKASH T 466.0 BRONCHITIS, ACUTE 02/17/2014 MADL JINRIKSHA DRIVER, PIPPA L 461.9 SINUSITIS ACUTE 02/17/2014 MADL JINRIKSHA DRIVER, PIPPA L 466.0 BRONCHITIS, ACUTE 02/17/2014 WISEMAN DO, MICKEY K 461.9 SINUSITIS ACUTE 02/17/2014 WISEMAN DO, MICKEY K 466.0 BRONCHITIS, ACUTE 02/17/2014 WISEMAN DO, MICKEY K 461.9 SINUSITIS ACUTE 02/17/2014 WISEMAN DO, MICKEY K 466.0 BRONCHITIS, ACUTE 02/17/2014 RAFAEL JINRIKSHA DRIVER, NICKOLAS R 461.9 SINUSITIS ACUTE 02/17/2014 RAFAEL JINRIKSHA DRIVER, NICKOLAS R 466.0 BRONCHITIS, ACUTE 02/17/2014 WISEMAN DO, MICKEY K 461.9 SINUSITIS ACUTE 02/17/2014 WISEMAN DO, MICKEY K 466.0 BRONCHITIS, ACUTE 02/17/2014 MADL JINRIKSHA DRIVER, PIPPA L 461.9 SINUSITIS ACUTE 02/17/2014 MADL JINRIKSHA DRIVER, PIPPA L 466.0 BRONCHITIS, ACUTE 02/17/2014 MADL JINRIKSHA DRIVER, PIPPA L 461.9 SINUSITIS ACUTE 02/17/2014 MADL JINRIKSHA DRIVER, PIPPA L 466.0 BRONCHITIS, ACUTE 05/13/2014 AAKASH PETTIT APRN T 719.46 PAIN KNEE 05/13/2014 MADL JINRIKSHA DRIVER, PIPPA L 719.46 PAIN KNEE 05/13/2014 WISEMAN DO, MICKEY K 719.46 PAIN KNEE 05/13/2014 WISEMAN DO, MICKEY K 719.46 PAIN KNEE 05/13/2014 RAFAEL JINRIKSHA DRIVER, NICKOLAS R 719.46 PAIN KNEE 05/13/2014 WISEMAN DO, MICKEY K 719.46 PAIN KNEE 05/13/2014 MADL JINRIKSHA DRIVER, PIPPA L 719.46 PAIN KNEE 05/13/2014 MADL JINRIKSHA DRIVER, PIPPA L 719.46 PAIN KNEE 06/17/2014 MADL JINRIKSHA DRIVER, PIPPA L 790.29 OTHER ABNORMAL GLUCOSE 06/17/2014 MADL JINRIKSHA DRIVER, PIPPA L V46.2 DEPENDENCE ON SUPPLEMENTAL OXYGEN 06/17/2014 WISEMAN DO, MICKEY K 790.29 OTHER ABNORMAL GLUCOSE 06/17/2014 WISEMAN DO, MICEKY K V46.2 DEPENDENCE ON SUPPLEMENTAL OXYGEN 06/17/2014 WISEMAN DO, MICKEY K 790.29 OTHER ABNORMAL GLUCOSE 06/17/2014 WISEMAN DO, MICKEY K V46.2 DEPENDENCE ON SUPPLEMENTAL OXYGEN 06/17/2014 RAFAEL JINRIKSHA DRIVER, NICKOLAS R 790.29 OTHER ABNORMAL GLUCOSE 06/17/2014 RAFAEL JINRIKSHA DRIVER, NICKOLAS R V46.2 DEPENDENCE ON SUPPLEMENTAL OXYGEN 06/17/2014 WISEMAN DO, MICKEY K 790.29 OTHER ABNORMAL GLUCOSE 06/17/2014 WISEMAN DO, MICKEY K V46.2 DEPENDENCE ON SUPPLEMENTAL OXYGEN 06/17/2014 MADL JINRIKSHA DRIVER, PIPPA L 790.29 OTHER ABNORMAL GLUCOSE 06/17/2014 MADL JINRIKSHA DRIVER, IPPPA L V46.2 DEPENDENCE ON SUPPLEMENTAL OXYGEN 06/17/2014 MADL JINRIKSHA DRIVER, PIPPA L 790.29 OTHER ABNORMAL GLUCOSE 06/17/2014 MADL JINRIKSHA DRIVER, PIPPA L V46.2 DEPENDENCE ON SUPPLEMENTAL OXYGEN 08/09/2014 SHAD WHITE, CANDY Whitley Ot 682.6 CELLULITIS OF LEG 09/09/2014 WISEMAN DO, MICKEY K 401.1 HYPERTENSION, BENIGN ESSENTIAL 09/09/2014 RAFAEL JINRIKSHA DRIVER, NICKOLAS R 401.1 HYPERTENSION, BENIGN ESSENTIAL 09/09/2014 WISEMAN DO, MICKEY K 401.1 HYPERTENSION, BENIGN ESSENTIAL 09/09/2014 MADL JINRIKSHA DRIVER, PIPPA L 401.1 HYPERTENSION, BENIGN ESSENTIAL 09/09/2014 MADL JINRIKSHA DRIVER, PIPPA L 401.1 HYPERTENSION, BENIGN ESSENTIAL 11/17/2014 [...] MD Ot V74.8 11/17/2014 [place] DIMASA L CLINICAL CYTOGENETICS DIRECTOR Ot 786.05 11/25/2014 RAFAEL JINRIKSHA DRIVER, NICKOLAS R 786.2 COUGH 11/25/2014 WISEMAN DO, MICKEY K 786.2 COUGH 11/25/2014 MADL JINRIKSHA DRIVER, PIPPA L 786.2 COUGH 11/25/2014 MADL JINRIKSHA DRIVER, PIPPA L 786.2 COUGH 01/06/2015 WISEMAN DO, MICKEY K 726.71 ACHILLES BURSITIS OR TENDINITIS 01/06/2015 MADL JINRIKSHA DRIVER, PIPPA L 726.71 ACHILLES BURSITIS OR TENDINITIS 01/06/2015 MADL JINRIKSHA DRIVER, PIPPA L 726.71 ACHILLES BURSITIS OR TENDINITIS 02/16/2015 MADL JINRIKSHA DRIVER, PIPPA L 465.9 UPPER RESPIRATORY INFECTION 02/16/2015 MADL JINRIKSHA DRIVER, PIPPA L 465.9 UPPER RESPIRATORY INFECTION 03/02/2015 MADL JINRIKSHA DRIVER, PIPPA L 719.45 PAIN IN JOINT INVOLVING [...] MD Ot V74.8 04/13/2015 PIPPA DIMAS L CLINICAL CYTOGENETICS DIRECTOR Ot 786.05 04/13/2015 JANNY TROY MD Ot [...] SVETA Caal Ot V74.8 04/15/2015 PIPPA DIMAS CLINICAL CYTOGENETICS DIRECTOR Ot 786.05 05/18/2015 SYDNI WHITE, JANNY Mann [...] SVETA Caal Ot V74.8 05/18/2015 PIPPA DIMAS CLINICAL CYTOGENETICS DIRECTOR Ot 786.05 07/10/2015 Ot 244.9 07/10/2015 Ot [...] PORTER MD Ot V74.8 10/20/2015 PIPPA DIMAS CLINICAL CYTOGENETICS DIRECTOR Ot 786.05 10/21/2015 SVETA SAMS MD Ot [...] P Ot V74.8 12/14/2015 MADDIEL, PIPPA L CLINICAL CYTOGENETICS DIRECTOR Ot 786.05 12/14/2015 MADDIEL, PIPPA L CLINICAL CYTOGENETICS DIRECTOR Ot M17.0 04/15/2016 MADDIEL, PIPPA L CLINICAL CYTOGENETICS DIRECTOR Ot R19.00 INTRA-ABD AND PELVIC SWELLING, MASS AND 04/19/2016 MADL, PIPPA L CLINICAL CYTOGENETICS DIRECTOR Ot R19.00 INTRA-ABD AND PELVIC SWELLING, MASS AND 04/19/2016 MADDIEL, PIPPA L CLINICAL CYTOGENETICS DIRECTOR Ot M17.0 BILATERAL PRIMARY OSTEOARTHRITIS OF KNEE 04/29/2016 MADDIEL, PIPPA L CLINICAL CYTOGENETICS DIRECTOR Ot R19.00 INTRA-ABD AND PELVIC SWELLING, MASS [...] V74.8 SCREEN-BACTERIAL DIS NEC 08/16/2016 PIPPA DIMAS CLINICAL CYTOGENETICS DIRECTOR Ot 786.05 SHORTNESS OF BREATH 08/16/2016 PIPPA DIMAS CLINICAL CYTOGENETICS DIRECTOR Ot M17.0 BILATERAL PRIMARY OSTEOARTHRITIS OF KNEE 08/16/2016 PIPPA DIMAS CLINICAL CYTOGENETICS DIRECTOR Ot R19.00 INTRA-ABD AND PELVIC SWELLING, MASS [...] CCDS Ot I25.10 ATHSCL HEART DISEASE OF [place] CORONARY 08/17/2016 PRIYA WHITE FACC, VENUS FACP [...] MD, FACC FACP CCDS Ot 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 08/31/2016 VENUS POWERS MD, [...] CCDS Ot I25.10 ATHSCL HEART DISEASE OF [place] CORONARY 08/31/2016 PRIYA WHITE FACC, ALI FACP [...] FACC, ALI FACP CCDS Ot Z79.899 OTHER HALF-WAY (CURRENT) DRUG THERAPY 11/09/2016 CANDY KULKARNI MD [...] STATUS 11/09/2016 CANDY KULKARNI MD Ot Z79.02 HALF-WAY (CURRENT) USE OF ANTITHROMBOTI 11/09/2016 CANDY KULKARNI MD Ot 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 11/15/2016 MADL, PIPPA L CLINICAL CYTOGENETICS DIRECTOR Ot M17.0 BILATERAL PRIMARY OSTEOARTHRITIS OF [place] [...] STATUS 11/16/2016 CANDY KULKARNI MD, Ot Z79.02 HALF-WAY (CURRENT) USE OF ANTITHROMBOTI 11/16/2016 CANDY KULKARNI MD, Ot Z79.82 HALF-WAY (CURRENT) USE OF ASPIRIN 01/13/2017 JANNY TROY [...] V74.8 SCREEN-BACTERIAL DIS NEC 01/13/2017 PIPPA DIMAS CLINICAL CYTOGENETICS DIRECTOR Ot 786.05 SHORTNESS OF BREATH 01/13/2017 PIPPA DIMAS CLINICAL CYTOGENETICS DIRECTOR Ot M17.0 BILATERAL PRIMARY OSTEOARTHRITIS OF [place] 01/13/2017 PIPPA DIMAS CLINICAL CYTOGENETICS DIRECTOR Ot R19.00 INTRA-ABD AND PELVIC SWELLING, MASS AND 01/13/2017 SVETA SAMS MD Ot E66.01 MORBID (SEVERE) OBESITY DUE TO EXCESS CA 01/13/2017 SVETA SAMS MD Ot 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 [facility] 01/13/2017 SVETA SAMS MD Ot I89.0 LYMPHEDEMA, NOT ELSEWHERE CLASSIFIED 01/13/2017 SVETA SAMS MD Ot L30.8 OTHER SPECIFIED DERMATITIS 01/31/2017 SVETA SAMS MD Ot E66.01 MORBID (SEVERE) OBESITY DUE TO EXCESS CA 01/31/2017 SVETA SAMS MD Ot 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 [facility] 01/31/2017 SVETA SAMS MD, Ot I89.0 LYMPHEDEMA, NOT ELSEWHERE CLASSIFIED 01/31/2017 SVETA SAMS MD Ot L30.8 OTHER SPECIFIED DERMATITIS 02/17/2017 SVETA SAMS MD Ot E66.01 MORBID (SEVERE) OBESITY DUE TO EXCESS CA 02/17/2017 SVETA SAMS MD Ot 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 [facility] 02/17/2017 SVETA SAMS MD Ot I89.0 LYMPHEDEMA, NOT ELSEWHERE CLASSIFIED 02/17/2017 SVETA SAMS MD Ot L30.8 OTHER SPECIFIED DERMATITIS 02/21/2017 SVETA SAMS MD Ot E66.01 MORBID (SEVERE) OBESITY DUE TO EXCESS CA 02/21/2017 SVETA ASMS MD Ot I30.8 OTHER FORMS OF ACUTE PERICARDITIS 02/21/2017 SVETA SAMS MD Ot 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 [facility] 02/21/2017 SVETA SAMS MD Ot I89.0 LYMPHEDEMA, NOT ELSEWHERE CLASSIFIED 02/21/2017 SVETA SAMS MD Ot E66.01 MORBID (SEVERE) OBESITY DUE TO EXCESS CA 02/21/2017 SVETA SAMS MD Ot I30.8 OTHER FORMS OF ACUTE PERICARDITIS 02/21/2017 SVETA SAMS MD Ot 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 [facility] 02/21/2017 SVETA SAMS MD Ot I89.0 LYMPHEDEMA, NOT ELSEWHERE CLASSIFIED 02/21/2017 JANNY TROY MD Ot 397.0 TRICUSPID VALVE DISEASE 02/21/2017 JANNY TROY MD Ot 401.9 HYPERTENSION NOS 02/21/2017 JANNY TROY MD Ot 424.0 MITRAL VALVE DISORDER 02/21/2017 JANNY TROY MD Ot 786.09 RESPIRATORY ABNORM NEC 02/21/2017 JANNY TROY MD Ot 401.9 HYPERTENSION NOS 02/21/2017 JANNY TRYO MD Ot 786.09 RESPIRATORY ABNORM NEC 02/21/2017 SVETA PORTER MD Ot 717.7 CHONDROMALACIA PATELLAE 02/21/2017 SVETA PORTER MD Ot V72.63 PRE-PROCEDURAL LABORATORY EXAMINATION 02/21/2017 SVETA PORTER MD Ot V74.8 SCREEN-BACTERIAL DIS NEC 02/21/2017 PIPPA DIMAS CLINICAL CYTOGENETICS DIRECTOR Ot 786.05 SHORTNESS OF BREATH 02/21/2017 PIPPA DIMAS CLINICAL CYTOGENETICS DIRECTOR Ot M17.0 BILATERAL PRIMARY OSTEOARTHRITIS OF [place]NEE 02/21/2017 PIPPA DIMAS CLINICAL CYTOGENETICS DIRECTOR Ot R19.00 INTRA-ABD AND PELVIC SWELLING, MASS AND 02/21/2017 SVETA SAMS MD Ot E66.01 MORBID (SEVERE) OBESITY DUE TO EXCESS CA 02/21/2017 SVETA SAMS MD Ot I30.8 OTHER FORMS OF ACUTE PERICARDITIS 02/21/2017 SVETA SAMS MD Ot 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 [facility] 02/21/2017 SVETA SAMS MD Ot I89.0 LYMPHEDEMA, NOT ELSEWHERE CLASSIFIED 03/02/2017 SVETA SAMS MD Ot E66.01 MORBID (SEVERE) OBESITY DUE TO EXCESS CA 03/02/2017 SVETA SAMS MD Ot I30.8 OTHER FORMS OF ACUTE PERICARDITIS 03/02/2017 SVETA SAMS MD Ot 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 [facility] 03/02/2017 SVETA SAMS MD Ot I89.0 LYMPHEDEMA, NOT ELSEWHERE CLASSIFIED 03/13/2017 SVETA SAMS MD Ot E66.01 MORBID (SEVERE) OBESITY DUE TO EXCESS CA 03/13/2017 SVETA SAMS MD Ot I30.8 OTHER FORMS OF ACUTE PERICARDITIS 03/13/2017 SVETA SAMS MD Ot 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 [facility] 03/13/2017 SVETA SAMS MD, Ot I89.0 LYMPHEDEMA, NOT ELSEWHERE CLASSIFIED 03/22/2017 SVETA SAMS MD Ot E66.01 MORBID (SEVERE) OBESITY DUE TO EXCESS CA 03/22/2017 SVETA SAMS MD Ot I30.8 OTHER FORMS OF ACUTE PERICARDITIS 03/22/2017 SVETA SAMS MD Ot 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 [facility] 03/22/2017 SVETA SAMS MD, Ot I89.0 [...] Ot 786.09 RESPIRATORY ABNORM NEC 04/04/2017 SVETA POTRER MD Ot 717.7 CHONDROMALACIA PATELLAE 04/04/2017 SVETA PORTER MD Ot V72.63 PRE-PROCEDURAL LABORATORY EXAMINATION 04/04/2017 SVETA PORTER MD Ot V74.8 SCREEN-BACTERIAL DIS NEC 04/04/2017 JUDIE, PIPPA L CLINICAL CYTOGENETICS DIRECTOR Ot 786.05 SHORTNESS OF BREATH 04/04/2017 JUDIE, PIPPA L CLINICAL CYTOGENETICS DIRECTOR Ot M17.0 BILATERAL PRIMARY OSTEOARTHRITIS OF KNEE 04/04/2017 JUDIE PIPPA L CLINICAL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 19:37:00 Document Registration [id number] 03/23/2010 08:00:00 Document Registration [id number] 03/18/2010 21:11:00 Document Registration
--- NOTE | 2018-09-08 15:46 | Diagnostic Imaging Report ---
INDICATION: Chest pain and tightness. COMPARISON: 05/04/2018. DISCUSSION: Single frontal upright view of the chest was obtained. Cardiomegaly is stable. Central venous congestion is again noted. No garry failure. No focal consolidation, pleural fluid, or pneumothorax. No osseous abnormality. IMPRESSION: 1. Cardiomegaly without garry failure. Dictated by: Dictated on workstation # [id number]
[2018-09-08 15:51] LABS: INR 1.1 (0.8-1.4); PROTHROMBIN TIME PATIENT 14.1 SEC (12.2-14.7)
[2018-09-08 15:59] LABS: ALANINE AMINOTRANSFERASE 9 U/L (0-55); ALBUMIN 3.7 GM/DL (3.2-4.5); ALKALINE PHOSPHATASE 69 U/L (40-136); BILIRUBIN,TOTAL 0.4 MG/DL (0.1-1.0); BUN/CREATININE RATIO 16; CALCIUM 9.2 MG/DL (8.5-10.1); CARBON DIOXIDE 24 MMOL/L (21-32); CHLORIDE 101 MMOL/L (98-107); CREATININE SERUM 1.39 MG/DL (0.60-1.30); GFR ESTIMATED 42; GLUCOSE 125 MG/DL (70-105); POTASSIUM 4.5 MMOL/L (3.6-5.0); SODIUM 137 MMOL/L (135-145); TOTAL PROTEIN 7.8 GM/DL (6.4-8.2)
[2018-09-08 16:05] LABS: MYOGLOBIN SERUM 50.8 NG/ML (10.0-92.0)
--- NOTE | 2018-09-08 16:05 | ED Integumentary General ---
General Chief Complaint: Chest Pain Stated Complaint: SOA,CHEST PAIN, LEFT HIP PAIN Nursing Triage Note: PATIENT STATES THAT SHE IS ALWAYS SOB WITH EXERTION BUT STATES THAT TODAY SHE FEELS IT IS WORSE. SHE ALSO HAS SOME CHEST PAIN WITH ACTIVITY. AT REST 3/10, WITH EXERTION 6/10. SHE ALSO WAS DIAGNOSED WITH CELLULITIS IN BILAT LOWER EXTREMITIES AND IS CURRENTLY TAKING LEVOFLAXACIN. Source: patient, family () Exam Limitations: no limitations History of Present Illness Date Seen by Provider: Sep 08, 2018 Time Seen by Provider: 16:05 Initial Comments Patient is a 42 year old female who presents to the Emergency room with complains of cellulitis to her bilateral lower extremities and is currently taking levofloxacin for the past 4 days but is concerned that it is not improving. She also reports that her chronic chest pain and shortness of breath has been worse the past 2 days with exertion. She is morbidly obese and reports that she ambulates very little. Timing/Duration: yesterday Location: extremities Possible Cause: no cause identified Associated Symptoms: change in skin texture, other (chest pain, sob) Allergies and Home Medications Allergies Coded Allergies: sulfamethoxazole (Unverified Allergy, Unknown, 11/14/17) trimethoprim (Unverified Allergy, Unknown, 04/23/06) Home Medications Albuterol Sulfate 6.7 Gm Hfa.aer.ad, 2 PUFF IH EVERY 4-6 HOURS PRN for SHORTNESS OF BREATH, (Reported) Aspirin 81 Mg Tablet.dr, 81 MG PO DAILY, (Reported) Cephalexin 500 Mg Tablet, 500 MG PO TID Prescribed by: CANDY KULKARNI on 11/14/172226 Cephalexin 500 Mg Capsule, 500 MG PO QIDPCHS Prescribed by: BANDAR REESE on 01/20/18 0342 Clopidogrel Bisulfate 75 Mg Tablet, 75 MG PO DAILY, (Reported) Cyclobenzaprine HCl 10 Mg Tablet, 10 MG PO HS, (Reported) Duloxetine HCl 60 Mg Capsule.dr, 60 MG PO DAILY, (Reported) Gabapentin 300 Mg Capsule, 300 MG PO HS, (Reported) Hydrocodone Bit/Acetaminophen 1 Tab Tab, 1 EACH PO Q4-6HR PRN for PAIN-MODERATE Prescribed by: KAYLA STREETER on 09/08/18 1704 Levothyroxine Sodium 75 Mcg Tablet, 75 MCG PO DAILY, (Reported) Metolazone 2.5 Mg Tablet, 2.5 MG PO DAILY, (Reported) Metoprolol Tartrate 50 Mg Tablet, 50 MG PO BID, (Reported) Mupirocin 22 Gm Oint...g., 22 GM TP UD, (Reported) APPLY TO AFFECTED AREAS EVERY OTHER DAY Omeprazole 20 Mg Capsule.dr, 20 MG PO DAILY, (Reported) Potassium Chloride 20 Meq Tablet.er, 20 MEQ PO DAILY, (Reported) Ropinirole HCl 4 Mg Tablet, 4 MG PO DAILY@1900, (Reported) TAKES 1-3 HOURS PRIOR TO BEDTIME Sacubitril/Valsartan 1 Each Tablet, 1 EACH PO BID, (Reported) Simvastatin 20 Mg Tablet, 20 MG PO HS, (Reported) Patient Home Medication List Home Medication List Reviewed: Yes Review of Systems Review of Systems Constitutional: see HPI; No chills, No fever Respiratory: see HPI, dyspnea on exertion Cardiovascular: see HPI, chest pain : No Skin: see HPI, change in color (redness), lesions (blisters) All Other Systems Reviewed Negative Unless Noted: Yes Past Odoxznq-Hjellp-Sxfppe Hx Past Med/Social Hx: Reviewed Nursing Past Med/Soc Hx Patient Social History Alcohol Use: Denies Use Recreational Drug Use: No Smoking Status: Never a Smoker 2nd Hand Smoke Exposure: No Recent Foreign Travel: No Contact w/Someone Who Travel: No Recent Infectious Disease Expo: No Recent Hopitalizations: No Immunizations Up To Date PED Vaccines UTD: No Date of Influenza Vaccine: Aug 20, 2012 Seasonal Allergies Seasonal Allergies: No Past Medical History Surgeries: Yes Cardiac, Section, Coronary Stent, Gallbladder, Orthopedic Respiratory: Yes Asthma, Sleep Apnea Currently Using BIPAP: No Cardiac: Yes (LBBB, CHF; LAST CATH 05/14/17; HAS HAD STENTS X 2) Cardiomyopathy, Chronic Edema/Swelling, Coronary Artery Disease, High Cholesterol, Hypertension Neurological: No (RESTLESS LEGS) Reproductive Disorders: No Female Reproductive Disorders: Denies Sexually Transmitted Disease: No Genitourinary: Yes Renal Failure Gastrointestinal: Yes (LAST EGD 08/2017) Gastroesophageal Reflux, Esophagitis, Hiatal Hernia, Ulcer Musculoskeletal: Yes (KNEE PAIN --RIGHT KNEE SCOPE; RESTLESS LEGS) Chronic Back Pain Endocrine: Yes (borderline diabetes, morbid obesity) Hypothyroidsim HEENT: No Cancer: No Psychosocial: Yes Sleep Difficulties, Anxiety Integumentary: Yes ( CELLULITIS OF LEGS, CHRONIC) Blood Disorders: No Adverse Reaction/Blood Tranf: No Family Medical History Reviewed Nursing Family Hx FH: COPD (chronic obstructive pulmonary disease) 19 MOTHER FH: congestive heart failure 19 MOTHER FH: renal failure 19 MOTHER Vascular Disease Physical Exam Vital Signs Vital Signs - First Documented 09/08/18 15:00 Temp 98.0 Pulse 81 Resp 18 B/P (MAP) 165/117 (133) Pulse Ox 99 O2 Delivery Room Air Capillary Refill : Less Than 3 Seconds General Appearance: WD/WN, no apparent distress Neck: non-tender, full range of motion, supple, normal inspection Cardiovascular: normal peripheral pulses, regular rate, rhythm, no edema, no gallop, no JVD, no murmur Respiratory: chest non-tender, lungs clear, normal breath sounds, no respiratory distress, no accessory muscle use Extremities: normal range of motion, non-tender, normal inspection, no pedal edema, no calf tenderness, normal capillary refill Neurologic/Psychiatric: alert, normal mood/affect, oriented x 3 Skin: normal color, warm/dry Skin Problem Location: lower extremities (ankles to mid calf bilat) Skin Problem Character: erythema, scales, thickening, vesicular (yellow filled and dried crusted vesicules that have drained), warm Progress/Results/Core Measures Results/Orders Lab Results Laboratory Tests Test 09/08/18 14:58 09/08/18 15:20 Range/Units Lab Scanned Report Referred Lab Report [id number] White Blood Count 9.1 4.3-11.0 10^3/uL Red Blood Count 4.10 L 4.35-5.85 10^6/uL Hemoglobin 12.4 11.5-16.0 G/DL Hematocrit 40 35-52 % Mean Corpuscular Volume 96 80-99 FL Mean Corpuscular Hemoglobin 30 25-34 PG Mean Corpuscular Hemoglobin Concent 31 L 32-36 G/DL Red Cell Distribution Width 14.5 10.0-14.5 % Platelet Count 239 130-400 10^3/uL Mean Platelet Volume 9.4 7.4-10.4 FL Neutrophils (%) (Auto) 79 H 42-75 % Lymphocytes (%) (Auto) 13 12-44 % Monocytes (%) (Auto) 6 0-12 % Eosinophils (%) (Auto) 2 0-10 % Basophils (%) (Auto) 0 0-10 % Neutrophils # (Auto) 7.2 1.8-7.8 X 10^3 Lymphocytes # (Auto) 1.2 1.0-4.0 X 10^3 Monocytes # (Auto) 0.5 0.0-1.0 X 10^3 Eosinophils # (Auto) 0.2 0.0-0.3 10^3/uL Basophils # (Auto) 0.0 0.0-0.1 10^3/uL Prothrombin Time 14.1 12.2-14.7 SEC INR Comment 1.1 0.8-1.4 Activated Partial Thromboplast Time 30 24-35 SEC Sodium Level 137 135-145 MMOL/L Potassium Level 4.5 3.6-5.0 MMOL/L Chloride Level 101 98-107 MMOL/L Carbon Dioxide Level 24 21-32 MMOL/L Anion Gap 12 5-14 MMOL/L Blood Urea Nitrogen 22 H 7-18 MG/DL Creatinine 1.39 H 0.60-1.30 MG/DL Estimat Glomerular Filtration Rate 42 BUN/Creatinine Ratio 16 Glucose Level 125 H 70-105 MG/DL Calcium Level 9.2 8.5-10.1 MG/DL Corrected Calcium 9.4 8.5-10.1 MG/DL Magnesium Level 2.0 1.8-2.4 MG/DL Total Bilirubin 0.4 0.1-1.0 MG/DL Aspartate Amino Transf (AST/SGOT) 9 5-34 U/L Alanine Aminotransferase (ALT/SGPT) 9 0-55 U/L Alkaline Phosphatase 69 40-136 U/L Myoglobin 50.8 10.0-92.0 NG/ML Troponin I < 0.30 <0.30 NG/ML Total Protein 7.8 6.4-8.2 GM/DL Albumin 3.7 3.2-4.5 GM/DL Micro Results Microbiology 09/08/18 Gram Stain - Final, Complete 09/08/18 Wound Culture - Final, Complete See Comments My Orders Orders - KAYLA STREETER Wound Culture (09/08/18 16:21) Hydrocodone/Apap 5/325 Tablet (Lortab 5 (09/08/18 17:15) Medications Given in ED Vital Signs/I&O 10/20/18 10/20/18 10/20/18 15:00 15:00 17:13 Temp 98.0 98.0 Pulse 81 81 Resp 18 18 B/P (MAP) 165/117 (133) 165/117 (133) Pulse Ox 99 95 95 O2 Delivery Room Air Room Air Blood Pressure Mean: 133 Progress Progress Note : Time: 17:00 Progress Note I have seen and evaluated the patient. I have informed her of her normal imaging and laboratory findings. I have collected a wound culture of her lower extremities. I believe that if her chest pain was cardiac related that the troponin would be elevated due to the length of symptoms. She agrees with plan of discharge, plan of care, return precautions were given. Voices no question or concerns. EKG : EKG Time: 15:06 Rate: 79 Rhythm: PAC ECG Comparisson: Unchanged Comment Left bundle branch block. Reviewed with Dr. Kulkarni and agrees with above. Diagnostic Imaging Diagonstic Imaging: Xray Plain Films/CT/US/NM/MRI: chest Comments NAME: SAGAR MORIN MED REC#: [id number] PHYSICIAN: CANDY KULKARNI MD CC: JORDEN PATEL MD; CANDY KULKARNI MD Page 1 of 1 RADIOLOGY REPORT VIA [facility]. [place], [place] CC: JORDEN PATEL MD; CANDY KULKARNI MD Page 1 of 1 RADIOLOGY REPORT NAME: SAGAR MORIN MED REC#: [id number] PT STATUS: REG ER : 1975 PHYSICIAN: CANDY KULKARNI MD ADMIT DATE: 09/08/18/ER Signed Date of Exam: 09/08/18 CHEST 1 VIEW, AP/PA ONLY INDICATION: Chest pain and tightness. COMPARISON: 05/04/2018. DISCUSSION: Single frontal upright view of the chest was obtained. Cardiomegaly is stable. Central venous congestion is again noted. No garry failure. No focal consolidation, pleural fluid, or pneumothorax. No osseous abnormality. IMPRESSION: 1. Cardiomegaly without garry failure. Dictated by: Dictated on workstation # [id number] Dict: 09/08/18 1538 Trans: 09/08/18 1554 Interpreted by: JORDEN PATEL MD Electronically signed by: JORDEN PATEL MD 09/08/18 4655 Reviewed: Reviewed by Me Departure Impression Primary Impression: Cellulitis Additional Impression: Chest pain Disposition: HOME, SELF-CARE Condition: Stable/Unchanged Departure-Patient Inst. Decision time for Depature: 17:03 Referrals: [facility] (PCP) Primary Care Physician PIPPA DIMAS (Family) Primary Care Physician Patient Instructions: Cellulitis (Skin Infection), Adult (DC), Chest Pain (DC) Add. Discharge Instructions: Continue the antibiotics as previously prescribed. Follow-up with [facility] within 1 week for recheck. Return back to the emergency room for any worsening symptoms, shortness of breath, chest pain, or any other concerns as needed. All discharge instructions reviewed with patient and/or family. Voiced understanding. Scripts Hydrocodone Bit/Acetaminophen (Hydrocodone/Acetaminophen 5/325mg Tablet) 1 Tab Tab 1 EACH PO Q4-6HR PRN for PAIN-MODERATE MDD 10, #14 TAB Prov: KAYLA STREETER 09/08/[address] Sep 08, 2018 16:05
[2018-09-08 17:13] VITALS: BP 165/117
== END | disposition home or self-care (01) ==
LOC: EDUNIT# 14:56 → ER 14:58
DX: L03.116 Cellulitis of left lower limb (principal); L03.115 Cellulitis of right lower limb; R07.9 Chest pain, unspecified; J45.909 Unspecified asthma, uncomplicated; G47.30 Sleep apnea, unspecified; I42.9 Cardiomyopathy, unspecified; E78.00 Pure hypercholesterolemia, unspecified; I25.10 Atherosclerotic heart disease of native coronary artery without angina pectoris; G25.81 Restless legs syndrome; K21.9 Gastro-esophageal reflux disease without esophagitis; I11.0 Hypertensive heart disease with heart failure; I50.9 Heart failure, unspecified; E66.01 Morbid (severe) obesity due to excess calories; E03.9 Hypothyroidism, unspecified; F41.9 Anxiety disorder, unspecified; Z88.2 Allergy status to sulfonamides; Z88.8 Allergy status to other drugs, medicaments and biological substances; Z82.49 Family history of ischemic heart disease and other diseases of the circulatory system; Z68.45 Body mass index [BMI] 70 or greater, adult; Z79.51 Long term (current) use of inhaled steroids; Z87.19 Personal history of other diseases of the digestive system; Z79.82 Long term (current) use of aspirin; Z79.02 Long term (current) use of antithrombotics/antiplatelets; Z95.5 Presence of coronary angioplasty implant and graft; Z98.890 Other specified postprocedural states
CPT/HCPCS: 36415; 71045; 80053; 83735; 83874; 84484; 85025; 85610; 85730; 87070; 87205; 93005; 93041